=== PATIENT | female | born 1970 | race Caucasian/White ===

== ENCOUNTER 2023-03-30 14:10 | Outpatient (OUT) | payer BC, SELFPAY ==
[2023-03-31 16:10] LABS: Deamidated Gliadin Abs, IgA 4 units (0-19); Deamidated Gliadin Abs, IgG 3 units (0-19); Endomysial Antibody IgA Negative (Negative); Immunoglobulin A, Qn, Serum 135 mg/dL (87-352); t-Transglutaminase (tTG) IgA <2 U/mL (0-3); t-Transglutaminase (tTG) IgG <2 U/mL (0-5)
== END 2023-03-30 14:11 | disposition home or self-care (01) ==
PROVIDERS: PCP Family Medicine
DX: R19.7 Diarrhea, unspecified (principal)
CPT/HCPCS: 36415; 82784; 86231; 86258; 86364

== ENCOUNTER 2023-10-25 10:38 | Outpatient (OUT) | payer BC, SELFPAY ==
[2023-10-25 11:36] LABS: Free T4 1.08 ng/dL (0.76-1.46)
[2023-10-25 11:37] LABS: Basophils Absolute Auto 0.1 10^3/uL (0.0-0.1); Basophils Percent Auto 1.2 % (0.2-2.0); Eosinophils Absolute Auto 0.1 10^3/uL (0.0-0.7); Eosinophils Percent Auto 1.7 % (0.9-7.0); Hematocrit 42.6 % (36.0-48.0); Hemoglobin 13.8 g/dL (12.0-16.0); Immature Granulocytes Abs Auto 0.01 10^3/uL (0.00-0.03); Immature Granulocytes Pct Auto 0.2 % (0.0-0.5); Lymphocytes Absolute Auto 1.9 10^3/uL (1.2-3.8); Lymphocytes Percent Auto 37.1 % (20.5-60.0); Mean Corpuscular HGB Conc 32.4 g/dL (29.9-35.2); Mean Corpuscular Hemoglobin 31.7 pg (26.7-34.0); Mean Corpuscular Volume 97.7 fL (81.0-99.0); Mean Platelet Volume 10.1 fL (9.5-13.5); Monocytes Absolute Auto 0.3 10^3/uL (0.3-0.8); Monocytes Percent Auto 5.8 % (1.7-12.0); Neutrophils Absolute Auto 2.8 10^3/uL (1.4-6.5); Platelet Count 212 10^3/uL (150-450); Red Blood Count 4.36 10^6/uL (4.20-5.40); White Blood Count 5.2 10^3/uL (4.0-11.0)
[2023-10-25 11:40] LABS: Anion Gap 10.9; BUN Creatinine Ratio 28.6; Calcium 8.9 mg/dL (8.5-10.1); Chloride 104 mmol/L (98-107); Estimated GFR (African America >60 (>=60); Estimated GFR (Non-African Ame >60 (>=60); Glucose 87 mg/dL (74-106); Potassium 3.9 mmol/L (3.5-5.1); Sodium 142 mmol/L (136-145); Thyroid Stimulating Hormone 0.103 uIU/mL (0.358-3.740)
== END 2023-10-25 10:39 | disposition home or self-care (01) ==
LOC: LAB 10:40
PROVIDERS: PCP Family Medicine; Visit Provider Family Medicine
DX: E03.9 Hypothyroidism, unspecified (principal); R53.83 Other fatigue
CPT/HCPCS: 36415; 80048; 84439; 84443; 85025

== ENCOUNTER 2023-11-08 20:46 | Outpatient (REF) | payer BC, SELFPAY ==
--- OUTSIDE RECORDS SUMMARY | 2023-11-08 20:53 | XMS_ITS | CCD ---
Author Organization [facility] Care Team Providers Care Sales Management Trainee Name Role Phone Saba Jenkins Unavailable Unavailable Furness, Yan T Unavailable Unavailable London, Ba U Unavailable Unavailable Wood, Javad Unavailable Unavailable Fried, Fely Unavailable Unavailable Furness, Yan Unavailable Unavailable Sagamore, Melvin Unavailable Unavailable Furness, Yan T Primary Care Provider [phone] Pending Provider Unavailable Unavailable Unavailable Unavailable Unavailable Unavailable XIOMARA AARON Primary Care Physician Blaire Collier Unavailable Shan Kerr Unavailable Xiomara Aaron Unavailable ZURI ., DR COLEY Admitting Unavailable ZRUI ., DR COLEY Consulting Unavailable ZURI ., DR COLEY Attending Unavailable GALEN, DR XIOMARA Hunter Primary Care Unavailable GALEN, DR XIOMARA Hunter Primary Care Unavailable DR XIOMARA AARON Consulting Unavailable GALEN, DR XIOMARA Hunter Attending Unavailable GALEN, DR XIOAMRA Hunter Admitting Unavailable ASAAD, IMAD Admitting Unavailable ASAAD, IMAD Consulting Unavailable ASAAD, IMAD Attending Unavailable GALEN, DR XIOMARA Hunter Primary Care Unavailable ASAAD, IMAD Admitting Unavailable ASAAD, IMAD Attending Unavailable DR JOSE EASLEY Consulting Unavailable GALEN, DR XIOMARA Hunter Primary Care Unavailable ASAAD, IMAD Consulting Unavailable Asaad, Imad Unavailable Xiomara Aaron Primary Care Unavailable Asaad, Imad Attending Unavailable Asaad, Imad Admitting Unavailable FREYA JOHNSON Attending Unavailable FREYA JOHNSON Attending Unavailable Freya Ponce Unavailable Allergies Allergy Classification Reported Allergen(s) Allergy Type Date of Onset Reaction(s) Facility Macrolides (antibiotic) (3 sources) Azithromycin; Translations: [erythromycin] Drug Allergy 07-30-20 12 Vomiting [facility] (20 sources) Erythromycin; Translations: [Erythromycin] Drug Allergy Vomitus (substance) [facility] Work Phone: (1 source) Erythromycin Drug Allergy 07-02-20 20 [facility] (1 source) Erythromycin Drug Allergy 09-21-19 [facility] Repository (6 sources) Allergies Reconciled Propensity to adverse reactions Unknown CANDDi Other Medications Current Medications Medication Drug Class(es) Dates Sig (Normalized) Sig (Original) [id number] actuat albuterol 0.09 mg/actuat metered dose inhaler (7 sources) beta2-Adrenergic Agonist take 2 puff(s) by mouth every four hours as needed for cough Albuterol Sulfate HFA 108 (90 Base) MCG/ACT INHALE 2 PUFFS BY MOUTH AND INTO THE LUNGS EVERY 4 HOURS NEEDED FOR COUGH, SHORTNESS OF BREATH for 30 Active take 2 puff(s) by mo uth every four hours as needed for cough Albuterol Sulfate HFA 108 (90 Base) MCG/ACT INHALE 2 PUFFS BY MOUTH AND INTO THE LUNGS EVERY 4 HOURS NEEDED FOR COUGH, SHORTNESS OF BREATH for 30 Active take 2 puff(s) by mo uth every four hours as needed for cough Albuterol Sulfate HFA 108 (90 Base) MCG/ACT INHALE 2 PUFFS BY MOUTH AND INTO THE LUNGS EVERY 4 HOURS NEEDED FOR COUGH, SHORTNESS OF BREATH for 30 Active Allergy Relief (14 sources) Allergy Relief P RN Active Allergy Relief A ctive amoxicillin 875 mg / clavulanate 125 mg oral tablet (2 sources) Penicillin-class Antibacterial Start: 06-30-2023 take 1 tablet by mouth every twelve hours Amoxicillin-Pot Clavulanate 875-125 MG 1 tablet Orally every 12 hrs for 10 days Jun, Active azithromycin 250 mg oral tablet (1 source) Macrolide Antimicrobial Start: 08-07-2023 Azithromycin 250 MG as directed Orally 2 tabs po today, then 1 tab daily x 4 more days for 5 Jul, Active biotin 10 mg oral tablet (7 sources) take 1 tablet by mouth every twenty-four hours Biotin 20912 MCG 1 tablet Orally Once a day Active take 1 tablet by chau th every twenty-four hours Biotin 10453 MCG 1 tablet Orally Once a day Active take 1 tablet by mouth once emy y Biotin 53124 MCG 1 tablet Orally Once a day Active dicyclomine hydrochloride 20 mg oral tablet (5 sources) Anticholinergic Start: 01-11-2021 take 1 tablet by mouth every twelve hours Dicyclomine HCl 20 MG 1 tablet Orally bid for 30 day(s) December, Active Start: 05-06-2020 take 1 tablet by chau th four times daily as needed Dicyclomine HCl - 20 MG Oral Tablet TAKE 1 TABLET 4 times daily PRN abdominal cramping Quantity: 30 Refills: 1 Ordered: 06-May-2020 Yan Winslow MD Start : 06-May-2020 Active doxycycline hyclate 100 mg oral tablet (2 sources) Tetracycline-class Drug Start: 07-24-2023 take 1 tablet by mouth every twelve hours Doxycycline Monohydrate 100 MG 1 tablet Orally Twice a day for 10 days Jul, Active Start: 07-24-2023 take 1 tablet by chau every twelve hours Doxycycline Monohydrate 100 MG 1 tablet Orally Twice a day for 10 days Jul, Active estradiol 0.01 mg vaginal insert (20 sources) Estrogen Start: 12-08-2021 Yuvafem 10 mcg vaginal tablet mcg tab(s), Vaginal, Once a day (at bedtime), Refills(s) 0 Start Date: 12/08/21 Status: Ordered Start: 01-25-2021 take 1 tablet by chau once daily Estradiol 2 MG Oral Tablet TAKE 1 TABLET DAILY. Quantity: 30 Refills: 1 Ordered: 25-Jan-2021 Chance Rao MD Start : 25-Jan-2021 Active Start: 09-08-2020 Estradiol 10 M CG Vaginal Tablet 1 PV QHS x 14 days then 1 PV twice weekly Quantity: 20 Refills: 5 Ordered: 08-Sep-2020 Nelson MYRES, CASSANDRA-SETH, Fely Start : 08-Sep-2020 Active Vagifem 10 MCG 1 tablet Vaginal Two times a Week Active Vagifem 10 MCG 1 tablet Vaginal Two times a Week Active Yuvafem Active Estradiol Active estradiol 0.025 mg/24 hours twice weekly Transderm ER Film (1 source) Start: 12-08-2021 estradiol 0.02 5 mg/24 hours twice weekly Transderm ER Film patch(es), Topical, Refill(s) 0 Start Date: 12/08/21 Status: Ordered Fish Oils (7 sources) take 1 capsule by mouth once daily Fish Oil 1000 MG 1 capsule Orally Once a day Active fluconazole 150 mg oral tablet (3 sources) Azole Antifungal Start: 07-24-2023 take 1 tablet by mouth every twenty-four hours Fluconazole 150 MG 1 tablet Orally daily for 1 days take first dose at onset of symptoms and then take second dose if no better in 3 days Jul, Active Start: 07-05-2023 take 1 tablet by chau th every twenty-four hours Fluconazole 150 MG 1 tablet Orally daily for 1 days take first dose and then may repeat in 72 hours if continues to have symptoms. Jun, Active fluticasone propionate 0.05 mg/actuat metered dose nasal spray (4 sources) Corticosteroid Start: 06-30-2023 take 1 spray(s) nasal route once daily Fluticasone Propionate 50 MCG/ACT 1 spray in each nostril Nasally Once a day for 30 days Jun, Active Start: 06-30-2023 take 1 spray(s) nasa l route once daily Fluticasone Propionate 50 MCG/ACT 1 spray in each nostril Nasally Once a day for 30 days Jun, Active Thyroxine (20 sources) l-Thyroxine Start: 12-08-2021 levothyroxine Daily, Refills(s) 0 Start Date: 12/08/21 Status: Ordered Levothyroxine So dium 88 MCG TAKE 1 TABLET BY MOUTH EVERY DAY IN THE MORNING ON EMPTY STOMACH FOR 90 DAYS for 90 Active Levothyroxine So dium 88 MCG TAKE 1 TABLET BY MOUTH EVERY DAY IN THE MORNING ON EMPTY STOMACH FOR 90 DAYS for 90 Active take 1 tablet by chau th once daily in the morning Levothyroxine Sodium 100 MCG 1 tablet in the morning on an empty stomach Orally Once a day Active take 1 tablet by mouth once emy y Levothyroxine Sodium 100 MCG Oral Tablet TAKE 1 TABLET DAILY. Quantity: 90 Refills: 3 Ordered: 03-Feb-2020 Yan Winslow MD Active Comment on above: Take 100 mcg by mout h daily before breakfast. Multi-Day Plus Minerals (2 sources) Start: 12-09-19 Multi-Day Plus Minerals Oral, Daily, Refill(s) 0 Start Date: 12/08/21 Status: Ordered Multivitamin preparation (7 sources) take 1 tablet by mouth once daily Multivitamin - 1 tablet Orally Once a day Active nitrofurantoin, macrocrystals 25 mg / nitrofurantoin, monohydrate 75 mg oral capsule (3 sources) Nitrofuran Antibacterial Start: 04-26-20 Macrobid 100 mg Cap See Instructions, 1 cap orally after intercourse, # 30 cap(s), Refills(s) 3, Pharmacy: [facility]/pharmacy #[id number], 170, cm, 04/26/23 13:36:00 EDT, Height/Length Dosing, 69.1, kg, 04/26/23 13:36:00 EDT, Weight Dosing Start Date: 04/26/23 Status: Ordered Start: 10-17-2021 take 1 capsule by [facility] every twelve hours Macrobid 100 MG 1 capsule with food Orally every 12 hrs for 5 days Sep, Active omeprazole 20 mg delayed release oral capsule (8 sources) Proton Pump Inhibitor Start: 12-08-2021 take 1 mg by mouth once daily omeprazole 20 mg Cap-DR mg cap(s), Oral, Daily, Refills(s) 0 Start Date: 12/08/21 Status: Ordered Omeprazole Activ e omeprazole 20 mg Cap-DR (1 source) Start: 12-08-2021 take 1 mg by mouth once daily omeprazole 20 mg Cap-DR mg cap(s), Oral, Daily, Refills(s) 0 Start Date: 12/08/21 Status: Ordered 24 hr oxybutynin chloride 5 mg extended release oral tablet (20 sources) Cholinergic Muscarinic Antagonist Start: 04-26-2023 take 1 tablet by mouth once daily oxybutynin 5 mg ER Tab 5 mg = 1 tab(s), Oral, Daily, # 90 tab(s), Refills(s) 3, Pharmacy: [facility]/pharmacy #[id number], 170, cm, 04/26/23 13:36:00 EDT, Height/Length Dosing, 69.1, kg, 04/26/23 13:36:00 EDT, Weight Dosing Start Date: 04/26/23 Status: Ordered Start: 12-08-2021 take 1 tablet by chau th once daily oxybutynin 5 mg ER Tab 5 mg = 1 tab(s), Oral, Daily, # 90 tab(s), Refills(s) 3, Pharmacy: [facility]/pharmacy #[id number], 170, cm, 12/08/21 9:43:00 EDT, Height/Length Dosing, 69.1, kg, 12/08/21 9:43:00 EDT, Weight Dosing Start Date: 12/08/21 Status: Ordered Start: 04-23-2020 take 1 tablet by chau th once daily Oxybutynin Chloride ER 5 MG Oral Tablet Extended Release 24 Hour Take 1 tablet daily Quantity: 90 Refills: 3 Ordered: 23-Apr-2020 Yan Winslow MD Start : 23-Apr-2020 Active take 1 tablet by chau every twenty-four hours oxyBUTYnin Chloride 5 MG 1 tablet Orally Once a day Active pantoprazole 40 mg delayed release oral tablet (18 sources) Proton Pump Inhibitor take 1 tablet by mouth once daily Pantoprazole Sodium 40 MG TAKE 1 TABLET BY MOUTH EVERY DAY for 90 Active phenazopyridine hydrochloride 200 mg oral tablet (2 sources) Start: 2 take 1 tablet by mouth every eight hours Pyridium 200 MG 1 tablet after meals Orally Three times a day for 2 day(s) Sep, Active sucralfate 1000 mg oral tablet (6 sources) Aluminum Complex Start: 2 sucralfate 1 g Tab gm tab(s), Oral, QIDACHS, Refills(s) 0 Start Date: 12/08/21 Status: Ordered Start: 11-19-2021 sucralfate 1 g Tab gm tab(s), Oral, QIDACHS, Refills(s) 0 Start Date: 12/08/21 Status: Ordered Start: 11-19-2021 take 1 tablet by chau three times daily Sucralfate 1 GM 1 TABLET Orally THREE TIMES A DAY for 30 day(s) Nov, Active Vitamin B 12 (20 sources) Vitamin B12 Start: 12-08-2021 Vitamin B12 Re fills(s) 0 Start Date: 12/08/21 Status: Ordered Vitamin B 12 Act kathryn take 1 tablet by mouth once emy y Vitamin B-12 ER 1000 MCG Oral Tablet Extended Release TAKE 1 TABLET DAILY DIRECTED. Quantity: 0 Refills: 0 Ordered: 07-Nov-2018 DO Active Vitamin D3 (2 sources) Vitamin D3 Activ e Yuvafem 10 mcg vaginal table t (1 source) Start: 12-08-2021 Yuvafem 10 mcg vaginal tablet mcg tab(s), Vaginal, Once a day (at bedtime), Refills(s) 0 Start Date: 12/08/21 Status: Ordered Completed/Discontinued Medications Medication Drug Class(es) Dates Sig (Normalized) Sig (Original) amitriptyline hydrochloride 10 mg oral tablet (1 source) Tricyclic Antidepressant Start: 12-04-2013 End: 04-12-2016 take 1 tablet by mouth once daily at bedtime amitriptyline 10 mg tablet Take 1 tablet by mouth daily at bedtime. 30 tablet 9 12/04/2013 04/12/2016 Discontinued (Course of therapy completed) Comment on above: Take 1 tablet by chau th daily at bedtime. amylase 562143 unt / lipase 30266 unt / protease [id number] unt delayed release oral capsule (8 sources) Start: 11-01-2021 take 1 capsule by mouth every eight hours Zenpep [id number] UNIT 1 CAPSULE Orally THREE TIMES A DAY for 30 days Oct, Not-Taking CALCIUM CARBONATE/VITAMIN D2 (CALCIUM + VITAMIN D ORAL) (1 source) End: 04-12-2016 take 600 mg by mouth once CALCIUM CARBONATE/VITAMIN D2 (CALCIUM + VITAMIN D ORAL) Take 600 mg by mouth. 0 04/12/2016 Discontinued (Discontinued by Patient) Comment on above: Take 600 mg by mouth . cholecalciferol 1.25 mg oral capsule (1 source) Vitamin D Start: 12-10-2013 cholecalciferol, Vitamin D3, 50,000 unit cap capsule 1 cap per week x 10 weeks. 10 capsule 0 12/10/2013 Active Comment on above: 1 cap per week x 10 weeks. estrogens, conjugated (alf) 1.25 mg oral tablet (3 sources) Estrogen Start: 05-19-2020 take 1 tablet by mouth once daily Premarin 1.25 MG Oral Tablet TAKE 1 TABLET BY MOUTH EVERY DAY Quantity: 90 Refills: 3 Ordered: 13-Aug-2020 Sagamore DO, Melvin Start : 19-May-2020 Active ESTROGENS, CONJU GATED (PREMARIN ORAL) Indications: Occipital neuralgia , Chronic daily headache , Chronic migraine , Cervicalgia , Cervical radicular pain , Medication overuse headache , Disequilibrium , Neck pain , Head trauma , Neck injury Take by mouth once daily. 0 Active Comment on above: Take by mouth once d aily. famotidine 20 mg oral tablet (3 sources) Histamine-2 Receptor Antagonist Start: take 1 tablet by mouth twice daily Famotidine 20 MG Oral Tablet Take 1 tablet twice daily Quantity: 60 Refills: 1 Ordered: 06-May-2020 Yan Winslow MD Start : 06-May-2020 Active 12 hr hyoscyamine sulfate 0.375 mg extended release oral tablet (7 sources) Start: 022 take 1 tablet by mouth every twelve hours Levbid 0.375 MG 1 tablet Orally every 12 hrs for 30 day(s) Nov, Not-Taking multivitamin tablet (1 source) End: 016 take 1 tablet by mouth once daily multivitamin tablet Indications: Occipital neuralgia , Chronic daily headache , Chronic migraine , Cervicalgia , Cervical radicular pain , Medication overuse headache , Disequilibrium , Neck pain , Head trauma , Neck injury Take 1 tablet by mouth once daily. 0 04/12/2016 Discontinued (Discontinued by Patient) Comment on above: Take 1 tablet by chau once daily. nortriptyline 25 mg oral capsule (5 sources) Tricyclic Antidepressant Start: 020 take 1 capsule by mouth at bedtime Nortriptyline HCl - 25 MG Oral Capsule TAKE 1 CAPSULE AT BEDTIME. Quantity: 90 Refills: 3 Ordered: 25-Oct-2019 Yan Winslow MD Start : 25-Oct-2019 Active Nortriptyline HC l PRN Active olopatadine 1 mg/ml ophthalmic solution (19 sources) Histamine-1 Receptor Inhibitor Start: 12-08-2021 olopatadine ophthalmic 0.1% solution drop(s), BID, Refill(s) 0 Start Date: 12/08/21 Status: Ordered Start: 12-08-2021 olopatadine op hthalmic 0.1% solution drop(s), BID, Refill(s) 0 Start Date: 12/08/21 Status: Ordered Start: 07-31-2019 Olopatadine HC l - 0.1 % Ophthalmic Solution Quantity: 5 Refills: 0 Ordered: 08-Oct-2019 DO Start : 31-Jul-2019 Active Start: 07-31-2019 Olopatadine HC l - 0.1 % Ophthalmic Solution Quantity: 5 Refills: 0 Start : 31-Jul-2019 Active Olopatadine HCl Active polyethylene glycol 3350 527666 mg / potassium chloride 2970 mg / sodium bicarbonate 6740 mg / sodium chloride 5860 mg / sodium sulfate 44135 mg powder for oral solution (3 sources) Osmotic Laxative Start: 01-05-2023 PEG-3350/Elec trolytes 236 GM as directed Orally once daily for 1 days December, Not-Taking rizatriptan 10 mg oral tablet (1 source) Serotonin-1b and Serotonin-1d Receptor Agonist Start: 12-04-2013 End: 04-12-2016 rizatriptan 10 mg tablet 1 tab at earliest sign of migraine. May repeat once in 2 hours if needed. 9 tablet 11 12/04/2013 04/12/2016 Discontinued (Course of therapy completed) Comment on above: 1 tab at earliest si gn of migraine. May repeat once in 2 hours if needed. Sertraline (1 source) Serotonin Reuptake Inhibitor SERTRALINE HCL (ZOLO FT ORAL) Indications: Occipital neuralgia , Chronic daily headache , Chronic migraine , Cervicalgia , Cervical radicular pain , Medication overuse headache , Disequilibrium , Neck pain , Head trauma , Neck injury Take by mouth once daily. 0 Active Comment on above: Take by mouth once d aily. Problems Active Problems Problem Classification Problem Date Documented Da te Episodic/Chronic Abdominal pain (20 sources) Abdominal pain; Translations: [Generalized abdominal pain] Onset: 3 Episodic Acute bronchitis (6 sources) Acute bronchitis; Translations: [Acute bronchitis due to other specified organisms] Episodic Calculus of urinary tract (9 sources) Ureteric stone; Translations: [Calculus of ureter] Episodic Cancer of uterus (15 sources) History of malignant neoplasm of uterine body; Translations: [Personal history of malignant neoplasm of other parts of uterus] Episodic Conditions associated with dizziness or vertigo (3 sources) Dizziness; Translations: [Dizziness and giddiness] Episodic Esophageal disorders (14 sources) Gastroesophageal reflux disease; Translations: [Gastroesophageal reflux disease without esophagitis] Onset: 2 Resolved: 2 12-03-2021 Chronic Genitourinary symptoms and ill-defined conditions (4 sources) Urge incontinence; Translations: [Urge incontinence of urine] Onset: 2 Chronic Genitourinary symptoms and ill-defined conditions (7 sources) Dysuria; Translations: [Genitourinary symptoms] Onset: 2 Resolved: 2 Episodic Headache; including migraine (1 source) Chronic intractable migraine without aura; Translations: [Chronic migraine without aura, intractable, without status migrainosus] Onset: 3 08-01-2013 Chronic Immunizations and screening for infectious disease (13 sources) Encounter for screening for human papillomavirus (HPV); Translations: [Human papilloma virus screening] Onset: 3 Episodic Inflammatory diseases of female pelvic organs (1 source) Acute vaginitis Episodic Malaise and fatigue (9 sources) Fatigue; Translations: [Other malaise and fatigue] Episodic Menopausal disorders (9 sources) Menopausal symptom; Translations: [Menopausal syndrome] Chronic Nausea and vomiting (3 sources) Nausea; Translations: [Nausea alone] Episodic Nutritional deficiencies (9 sources) Vitamin D deficiency; Translations: [Unspecified vitamin D deficiency] Chronic Other circulatory disease (7 sources) Acroparesthesia; Translations: [Distal paresthesia] Chronic Other diseases of bladder and urethra (11 sources) Overactive bladder; Translations: [Overactive bladder] 12-03-2021 Chronic Other diseases of bladder and urethra (2 sources) Detrusor overactivity; Translations: [Overactive bladder] Onset: 2 Chronic Other ear and sense organ disorders (3 sources) Impacted cerumen; Translations: [Impacted cerumen] Episodic Other ear and sense organ disorders (1 source) Impacted cerumen, bilateral Episodic Other female genital disorders (15 sources) H/O gynecological disorder; Translations: [Personal history of other genital system and obstetric disorders] Episodic Other gastrointestinal disorders (20 sources) Irritable bowel syndrome; Translations: [Mixed irritable bowel syndrome] 12-03-2021 Chronic Other gastrointestinal disorders (1 source) Mixed irritable bowel syndrome Onset: 2 Resolved: 2 Chronic Other gastrointestinal disorders (1 source) Celiac disease; Translations: [Celiac disease] Chronic Other gastrointestinal disorders (5 sources) Celiac disease; Translations: [Gluten intolerance] Chronic Other gastrointestinal disorders (15 sources) Personal history of other diseases of the digestive system; Translations: [History of gastroesophageal reflux disease] Episodic Other gastrointestinal disorders (15 sources) Diarrhea; Translations: [Diarrhea] Episodic Other gastrointestinal disorders (9 sources) Abdominal bloating; Translations: [Flatulence, eructation, and gas pain] Episodic Other gastrointestinal disorders (6 sources) Swollen abdomen; Translations: [Abdominal distension (gaseous)] Episodic Other gastrointestinal disorders (13 sources) Incontinence of feces; Translations: [Full incontinence of feces] Onset: 3 Episodic Other gastrointestinal disorders (2 sources) Full incontinence of feces Onset: 2 Resolved: 2 Episodic Other gastrointestinal disorders (14 sources) Flatulence, eructation and gas pain; Translations: [Abdominal distension (gaseous)] Episodic Other gastrointestinal disorders (5 sources) Diarrhea, unspecified; Translations: [DIARRHEA UNSPECIFIED] Onset: 2 Episodic Other gastrointestinal disorders (7 sources) Altered bowel function; Translations: [Change in bowel habit] Episodic Other gastrointestinal disorders (6 sources) Constipation alternates with diarrhea; Translations: [Other specified symptoms and signs involving the digestive system and abdomen] Episodic Other gastrointestinal disorders (1 source) Change in bowel habit Episodic Other gastrointestinal disorders (1 source) Abdominal distension (gaseous) Episodic Other gastrointestinal disorders (1 source) Other specified symptoms and signs involving the digestive system and abdomen; Translations: [Alternating constipation and diarrhea] Episodic Other infections; including parasitic (15 sources) H/O: infectious disease; Translations: [Personal history of other infectious and parasitic diseases] Episodic Other inflammatory condition of skin (3 sources) Sunburn of second degree; Translations: [Sunburn of second degree] Episodic Other lower respiratory disease (3 sources) Cough; Translations: [Cough] Episodic Other nervous system disorders (9 sources) Idiopathic peripheral neuropathy; Translations: [Unspecified hereditary and idiopathic peripheral neuropathy] Chronic Other nervous system disorders (2 sources) Disorder of nervous system; Translations: [Demyelinating disease of central nervous system, unspecified] Chronic Other nervous system disorders (7 sources) Disorder of nervous system; Translations: [Demyelinating disease] Episodic Other nervous system disorders (2 sources) Acroparesthesia; Translations: [Disturbance of skin sensation] Episodic Other non-traumatic joint disorders (1 source) Pain in left knee Episodic Other nutritional; endocrine; and metabolic disorders (15 sources) H/O: hypothyroidism; Translations: [Personal history of other endocrine, metabolic, and immunity disorders] Episodic Other upper respiratory disease (3 sources) Allergic rhinitis; Translations: [Allergic rhinitis due to other allergen] Chronic Other upper respiratory infections (6 sources) Chronic sinusitis; Translations: [Chronic sinusitis, unspecified] Chronic Other upper respiratory infections (2 sources) Acute frontal sinusitis, unspecified; Translations: [Acute recurrent maxillary sinusitis] Episodic Residual codes; unclassified (3 sources) Past history of procedure; Translations: [Other specified personal history presenting hazards to health] Episodic Comment on above: 01/01/2019; Residual codes; unclassified (7 sources) Family history of cancer of colon; Translations: [Family history of malignant neoplasm of digestive organs] Episodic Residual codes; unclassified (6 sources) Tobacco user; Translations: [Tobacco use] Episodic Residual codes; unclassified (6 sources) Body mass index 20-24 - normal; Translations: [Body mass index (BMI) 23.0-23.9, adult] Episodic Sexually transmitted infections (not HIV or hepatitis) (6 sources) Human papilloma virus deoxyribonucleic acid test positive, high risk on vaginal specimen; Translations: [Cervical high risk human papillomavirus (HPV) DNA test positive] Episodic Thyroid disorders (11 sources) Hypothyroidism; Translations: [Unspecified acquired hypothyroidism] 12-03-2021 Chronic Unclassified (6 sources) Acute candidiasis of vulva and vagina; Translations: [Acute candidiasis of vulva and vagina] Urinary tract infections (11 sources) Urinary tract infectious disease; Translations: [Urinary tract infection, site not specified] Onset: 2 Resolved: 2 Episodic Viral infection (2 sources) Human papilloma virus infection; Translations: [Human papillomavirus in conditions classified elsewhere and of unspecified site] Episodic Viral infection (6 sources) Disease caused by 2019-nCoV; Translations: [COVID-19] Past or Other Problems Problem Classification Problem Date Documented Date Episodic/Chronic Headache; including migraine (1 source) Chronic daily headache; Translations: [Chronic daily headache] Onset: 08-01-2013 08-01-2013 Episodic Other screening for suspected conditions (not mental disorders or infectious disease) (14 sources) Cancer cervix - screening done; Translations: [Patient encounter status] Onset: 10-27-2021 Episodic Pancreatic disorders (not diabetes) (1 source) Exocrine pancreatic insufficiency Onset: 11-01-2021 Resolved: 11-01-2021 Episodic Residual codes; unclassified (6 sources) Postmenopausal state; Translations: [Asymptomatic menopausal state] Onset: 10-27-2021 Episodic Spondylosis; intervertebral disc disorders; other back problems (1 source) Cervico-occipital neuralgia; Translations: [Occipital neuralgia] Onset: 12-04-2013 12-04-2013 Episodic Unclassified (2 sources) Patient encounter status; Translations: [Encounter for screening mammogram for breast cancer] Unclassified (3 sources) Finding of menstrual bleeding; Translations: [Menstruation] Comment on above: Onset age 13 years; NEGATED: Highlighted row has not occurred!Residual codes; unclassified (20 sources) Disease Episodic Results Test Name Value Interpretation Reference Range Facility Screenson 04-27-2023 Screens [id number] Normal [facility] Ambulatory Visit Summaryon 0 04-26-2023 Ambulatory Visit Summary PATTY WRIGHT :1970 Visit Date:04/26/2023 Ambulatory Visit Instructions Your Diagnosis Frequent UTI OAB (overactive bladder) Urge incontinence Fecal incontinence Your Care Team Attending Physician - FREYA JOHNSON PA-C Primary Care Physician - XIOMARA AARON MD This Is Your Medications List nitrofurantoin (Macrobid 100 mg Cap) oxybutynin (oxybutynin 5 mg ER Tab) Contact prescribing physician if questions or concerns cyanocobalamin (Vitamin B12) estradiol topical (Yuvafem 10 mcg vaginal tablet) levothyroxine multivitamin with minerals (Multi-Day Plus Minerals) olopatadine ophthalmic (olopatadine ophthalmic 0.1% solution) omeprazole (omeprazole 20 mg Cap-DR) sucralfate (sucralfate 1 g Tab) Procedures Performed D&C - Dilatation and curettage, History of hysterectomy, History of tonsillectomy, Procedure on foot. Discharge Vitals Heart Rate (Peripheral) 76 Respiratory Rate 16 Blood Pressure 112/76 Height 170 cm Height 67 in Weight 69.1 kg Weight 152.02 lb BMI 23.91 What to do next Scheduled Follow-Up Appointments Monday 10:00 AM EDT With: FERYA JOHNSON PA-C Where: [facility] Patient Educationon 04-26-20 Patient Education Obstetrics and Gynec ology Urinary Tract Infection, Adult A urinary tract infection (UTI) is an infection of any part of the urinary tract. The urinary tract includes: ? The kidneys. ? The ureters. ? The bladder. ? The urethra. These organs make, store, and get rid of pee (urine) in the body. What are the causes? This infection is caused by germs (bacteria) in your genital area. These germs grow and cause swelling (inflammation) of your urinary tract. What increases the risk? The following factors may make you more likely to develop this condition: ? Using a small, thin tube (catheter) to drain pee. ? Not being able to control when you pee or poop (incontinence). ? Being female. If you are female, these things can increase the risk: ? Using these methods to prevent : ? A medicine that kills sperm (spermicide). ? A device that blocks sperm (diaphragm). ? Having low levels of a female hormone (estrogen). ? Being . You are more likely to develop this condition if: ? You have genes that add to your risk. ? You are sexually active. ? You take antibiotic medicines. ? You have trouble peeing because of: ? A prostate that is bigger than normal, if you are male. ? A blockage in the part of your body that drains pee from the bladder. ? A kidney stone. ? A nerve condition that affects your bladder. ? Not getting enough to drink. ? Not peeing often enough. ? You have other conditions, such as: ? Diabetes. ? A weak disease-fighting system (immune system). ? Sickle cell disease. ? Gout. ? Injury of the spine. What are the signs or symptoms? Symptoms of this condition include: ? Needing to pee right away. ? Peeing small amounts often. ? Pain or burning when peeing. ? Blood in the pee. ? Pee that smells bad or not like normal. ? Trouble peeing. ? Pee that is cloudy. ? Fluid coming from the vagina, if you are female. ? Pain in the belly or lower back. Other symptoms include: ? Vomiting. ? Not feeling hungry. ? Feeling mixed up (confused). This may be the first symptom in older adults. ? Being tired and grouchy (irritable). ? A fever. ? Watery poop (diarrhea). How is this treated? ? Taking antibiotic medicine. ? Taking other medicines. ? Drinking enough water. In some cases, you may need to see a specialist. Follow these instructions at home: Medicines ? Take xgjr-rpq-rhmegdr and prescription medicines only as told by your doctor. ? If you were prescribed an antibiotic medicine, take it as told by your doctor. Do not stop taking it even if you start to feel better. General instructions ? Make sure you: ? Pee until your bladder is empty. ? Do not hold pee for a long time. ? Empty your bladder after sex. ? Wipe from front to back after peeing or pooping if you are a female. Use each tissue one time when you wipe. ? Drink enough fluid to keep your pee pale yellow. ? Keep all follow-up visits. Contact a doctor if: ? You do not get better after 1?2 days. ? Your symptoms go away and then come back. Get help right away if: ? You have very bad back pain. ? You have very bad pain in your lower belly. ? You have a fever. ? You have chills. ? You feeling like you will vomit or you vomit. Summary ? A urinary tract infection (UTI) is an infection of any part of the urinary tract. ? This condition is caused by germs in your genital area. ? There are many risk factors for a UTI. ? Treatment includes antibiotic medicines. ? Drink enough fluid to keep your pee pale yellow. This information is not intended to replace advice given to you by your health care provider. Make sure you discuss any questions you have with your health care provider. Document Revised: 03/19/2021 Document Reviewed: 03/19/2021 [employer] Patient Education ? 2022 [employer] Raissa [facility] Urology Office/Clinic Noteon 04-26-2023 Urology Office/Clinic Note Chief Complaint 1yr HPI Staff 1yr DX: Frequent UTI, OAB & Urge Incontinence *Oxybutynin ER 5mg QD therapy. Pt's [employer] put her on Macrobid and she takes one post-coital. Last CMP (per [facility]) 12/22/21 *BUN 10.0 & Crea 0.50 Pt unable to provide urine specimen. Denies infection since last encounter. Denies leaking. Denies frequency. Occasionally may wake up 1x/night. Denies current pain/burning and visible blood in urine. Does have occasional bowel leakage. Usually while she is at work. No other concerns at this time. History of Present Illness staff HPI reviewed and agree. Review of Systems PHQ Score Initial Depression Screen Score: 0 no fever, chills, malaise, myalgia. no rash/lesions. no chest pain, palpitations, or SOB. no abdominal pain, nausea, vomiting. no unilateral calf swelling, redness, pain Physical Exam Vitals & Measurements HR: 76(Peripheral) RR: 16 BP: 112/76 HT: 67 in HT: 170 cm WT: 69.1 kg WT: 152.02 lb BMI: 23.91 General: nontoxic, NAD Mouth: moist mucosa Lungs: normal respiratory effort Cardio: regular rate, good distal perfusion Abdomen: nondistended, no suprapubic distention or tenderness, no CVA tenderness Neurologic: Grossly normal Skin: No rashes or suspicious lesions Assessment/Plan 1. Frequent UTI (N39.0: Urinary tract infection, site not specified) Pt's [employer]ER put her on Macrobid and she takes one post-coital. Pt denies any UTIs since last visit. Pt states that she takes it about 1x a week. Risks/benefits of continued use discussed at length. Pt prefers to continue since it's working. Refills sent today to pharm on file. Ordered: E&M of Est. Patient Moderate 30-39 Min 82945 2. OAB (overactive bladder) (N32.81: Overactive bladder) Oxybutynin ER 5mg QD (switched from IR previously). No bothersome SE's. Denies frequency. Occasionally may wake up 1x/night. Discussed increasing dose, does not feel this is necessary. pleased w current sx. Refills sent today to pharm on file. Ordered: E&M of Est. Patient Moderate 30-39 Min 40632 3. Urge incontinence (N39.41: Urge incontinence) Pt states she dribbles at time but it has improved significantly since her last office visit. BBS 6. see #2. Ordered: E&M of Est. Patient Moderate 30-39 Min 58897 4. Fecal incontinence (R15.9: Full incontinence of feces) Does have occasional bowel leakage. Usually while she is at work. Very small amount/liquid. Pt states that she has a BM about every other day, formed, and has to push a little bit sometimes. Advised pt that if she is more constipated/there is a stool ball blocking, this could cause the leakage. Advised pt to have a full bowel clean out. Pt had a colonoscopy last month, so she just did this. Advised pt to get enough fluids, increase fiber, and start Miralax QD for at least 2-3 mos. Should see an improvement. If not, would recommend GI. Ordered: E&M of Est. Patient Moderate 30-39 Min 54603 Orders: nitrofurantoin, See Instructions, 1 cap orally after intercourse, # 30 cap(s), Refills(s) 3, Pharmacy: [facility]/pharmacy #[id number], 170, cm, 04/26/23 13:36:00 EDT, Height/Length Dosing, 69.1, kg, 04/26/23 13:36:00 EDT, Weight Dosing oxybutynin, 5 mg = 1 tab(s), Oral, Daily, # 90 tab(s), Refills(s) 3, Pharmacy: [facility]/pharmacy #[id number], 170, cm, 04/26/23 13:36:00 EDT, Height/Length Dosing, 69.1, kg, 04/26/23 13:36:00 EDT, Weight Dosing Follow up in 1 yr. All questions/concerns were discussed. Pt to call the office if she encounters any issues prior. Pt acknowledges understanding. Follow-up With When Contact Information FREYA JOHNSON PA-C, URL In 1 year [address] [place] [address] Additional Instructions: Patient Education Urinary Tract Infection, Adult, [id number] IQiana, personally scribed for Freya Johnson PA-C on 04/26/2023 13:55:30. . Documentation recorded by the [email or web address] Garibay accurately reflects the services(s) I performed and decisions made by me. Authenticated by Freya Johnson PA-C on 04/26/2023 14:00:51. Problem List/Past Medical History Ongoing Frequent UTI GERD (gastroesophageal reflux disease) Hypothyroidism IBS (irritable bowel syndrome) OAB (overactive bladder) Urge incontinence Historical No qualifying data Procedure/Surgical History D&C - Dilatation and curettage, History of hysterectomy, History of tonsillectomy, Procedure on foot. Medications levothyroxine, Daily Macrobid 100 mg Cap, See Instructions, 1 refills Multi-Day Plus Minerals, Oral, Daily olopatadine ophthalmic 0.1% solution, BID omeprazole 20 mg Cap-DR, Oral, Daily oxybutynin 5 mg ER Tab, 5 mg= 1 tab(s), Oral, Daily, 11 refills sucralfate 1 g Tab, Oral, QIDACHS Vitamin B12 Yuvafem 10 mcg vaginal tablet, Vaginal, Once a day (at bedtime) Allergies erythromycin (Vomit) Social History Tobacco Never (less than 100 in (more content not included)... Normal [facility] Comment on above: Result Comment: Elec tronically Signed By: FREYA JOHNSON PA-C.br\Date and Time Signed: 04/26/23 14:00 EDT\.br\Electronically Co-Signed By: Qiana Garibay.br\Date and Time Co-Signed: 04/26/23 13:55 EDT Adrian 03-16-2023 L -- Specimen: [id number] Received: 03/16/23 Status: KYLE Sultanahardik Num: [id number] Spec Type: Surgical Subm Dr: Meseret Cool MD Tissues: A Duodenum - Biopsy (DUODENAL BX) B GASTRIC FOR HP (GASTRIC HP) C Gastric Biopsy (GASTRIC POLYP) D Colon Biopsy (RANDOM BX) Procedures: HE/8, Gross/Micro L4/4, H PYLORI -- Age/ Patient Sex Location Account Attending Physician -- Patty Wright 53/F [id number] Meseret Cool MD -- SPEC NUM: [id number] RECD: 03/16/23 STATUS: KYLE KALLIE NUM: [id number] GILMAR: 03/16/23- [facility] DR: Meseret Cool MD ENTERED: 03/16/[address] [facility] DR: SPEC TYPE: Surgical DEPT: S ORDERED: HE/8, Gross/Micro L4/4, H PYLORI ORDERED: HE/8, Gross/Micro L4/4, H PYLORI Pathological Diagnosis A. Duodenum, biopsy: - Duodenal mucosa with intraepithelial lymphocytosis and preserved villous architecture. Note: This occurs in celiac disease but has a broad differential diagnosis including H. pylori gastritis, drugs (e.g., olmesartan, possibly NSAIDs), non-gluten food allergies, immune-mediated diseases, Crohn?s disease and morbid obesity. No specific cause is evident in many cases. Clinical correlation is advised. B. Stomach, biopsy: - Gastric antral gland mucosa with mild chronic nonspecific gastritis - Negative for intestinal metaplasia or dysplasia - Negative for H. pylori (immunohistochemical stain) C. Stomach, polyp, biopsy: - Fragments of fundic gland polyp(s) - Negative for intestinal metaplasia or dysplasia - Negative for H. pylori (immunohistochemical stain) -- Specimen: [id number] Received: 03/16/23 Status: KYLE Demarco Num: [id number] Spec Type: Surgical Subm Dr: Meseret Cool MD Tissues: A Duodenum - Biopsy (DUODENAL BX) B GASTRIC FOR HP (GASTRIC HP) C Gastric Biopsy (GASTRIC POLYP) D Colon Biopsy (RANDOM BX) Procedures: TOM/Chris, Gross/Micro L4/4, H PYLORI -- Patient: Patty Wright [id number] (Continued) -- Specimen: [id number] Received: 03/16/23 (Continued) Pathological Diagnosis (Continued) Signed (signature on file) Glen Selby MD 03/21/23 1152 -- Specimen: [id number] Received: 03/16/23 Status: KYLE Kallie Num: [id number] Spec Type: Surgical Subm Dr: Meseret Cool MD Tissues: A Duodenum - Biopsy (DUODENAL BX) B GASTRIC FOR HP (GASTRIC HP) C Gastric Biopsy (GASTRIC POLYP) D Colon Biopsy (RANDOM BX) Procedures: TOM/Chris, Gross/Micro L4/4, H PYLORI -- Patient: Patty Wright [id number] (Continued) -- Specimen: [id number] Received: 07/27/23-1353 (Continued) Pathological Diagnosis (Continued) D. Colon, biopsy: - Benign colonic mucosa with focal hyperplastic changes and prominent lymphoid aggregate Clinical Information Change in bowel habits, bloating, increased pain, rule out celiac, rule out H. pylori for IHS, rule out microscopic colitis Gross Description A. Received in formalin labeled with the patient's name, date of and duodenal biopsy rule out celiac is one pollock tissue measuring 0.7 x 0.3 x 0.2 cm. Entirely submitted in one cassette labeled A1. B. Received in formalin labeled with the patient's name, date of and gastric biopsy rule out H. pylori for IHS is one pollock tissue measuring 0.2 cm. Entirely submitted in one cassette labeled B1. C. Received in formalin labeled with the patient's name, date of and gastric polyp are two pollock tissues measuring 0.5 x 0.4 x 0.3 cm and 0.9 x 0.3 x 0.3 cm. Entirely submi tted in one cassette labeled C1. D. Received in formalin labeled with the patient's name, date of and random biopsies rule out microscopic colitis are two pollock tissues averaging 0.3 x 0.2 x 0.2 cm. Entirely submitted in one cassette labeled D1. Microscopic Description A. Two H E slides reviewed. The microscopic examination confirms the diagnosis. B. Two H E slides reviewed. The microscopic examination confirms the diagnosis. C. Two H E slides reviewed. The microscopic examination confi (more content not included)... Normal [facility] CBC AUTO DIFFon 01-18-2023 BASO # 0.1 103/ul Normal 0.0-0.1 [facility] Comment on above: Performed By: #### C BC #### [facility] [address] [place] [id number] Vasyl Irving Basophils/100 WBC (Bld) 1.0 % Normal 0.2-2.0 [facility] Comment on above: Performed By: #### C BC #### [facility] [address] [place], [place] [address] Dr. Vasyl Irving EO # 0.1 103/ul Normal 0.0-0.7 [facility] Comment on above: Performed By: #### C BC #### [facility] [address] [place] [address] Dr. Vasyl Irving Eosinophils/100 WBC (Bld) 2.0 % Normal 0.9-7.0 [facility] Comment on above: Performed By: #### C BC #### [facility] [address] [place] [address] Dr. Vasyl Irving Erythrocyte distribution width (RBC) [Ratio] 12.7 % Normal 11.0-15.0 [facility] Comment on above: Performed By: #### C BC #### [facility] [address] [place] [address] Dr. Vasyl Irving Hematocrit (Bld) [Volume fraction] 42.6 % Normal 36.0-48.0 [facility] Comment on above: Performed By: #### C BC #### [facility] [address] [place] [address] Dr. Vasyl Irving Hemoglobin (Bld) [Mass/Vol] 14.2 g/dL Normal 12.0-16.0 [facility] Comment on above: Performed By: #### C BC #### [facility] [address] [place] [address] Dr. Vasyl Irving IG # 0.01 10e3/ul Normal 0.00-0.03 [facility] Comment on above: Performed By: #### C BC #### [facility] [address] [place] [address] Dr. Vasyl Irving IG % 0.2 % Normal 0.0-0.5 [facility] Comment on above: Performed By: #### C BC #### [facility] [address] [place] [address] Dr. Vasyl Irving LYMPH # 2.2 103/ul Normal 1.2-3.8 [facility] Comment on above: Performed By: #### C BC #### [facility] [address] [place] [address] Dr. Vasyl Irving Lymphocytes/100 WBC (Bld) 42.2 % Normal 20.5-60.0 [facility] Comment on above: Performed By: #### C BC #### [facility] [address] [place] [address] Dr. Vasyl Irving MANUAL DIFF REQ NO Normal [facility] Comment on above: Performed By: #### C BC #### [facility] [address] [place] [address] Dr. Vasyl Irving MCH (RBC) [Entitic mass] 31.7 pg Normal 26.7-34.0 [facility] Comment on above: Performed By: #### C BC #### [facility] [address] [place] [address] Dr. Vasyl Irving MCHC (RBC) [Mass/Vol] 33.3 g/dL Normal 29.9-35.2 [facility] Comment on above: Performed By: #### C BC #### [facility] [address] [place] [address] Dr. Vasyl Irving MCV (RBC) [Entitic vol] 95.1 fL Normal 81.0-99.0 [facility] Comment on above: Performed By: #### C BC #### [facility] [address] [place] [address] Dr. Vasyl Irving MONO # 0.3 103/ul Normal 0.3-0.8 [facility] Comment on above: Performed By: #### C BC #### [facility] [address] [place] [address] Dr. Vasyl Irving Monocytes/100 WBC (Bld) 5.9 % Normal 1.7-12.0 [facility] Comment on above: Performed By: #### C BC #### [facility] [address] [place] [address] Dr. Vasyl Irving NEUT # 2.5 103/ul Normal 1.4-6.5 [facility] Comment on above: Performed By: #### C BC #### [facility] [address] [place] [address] Dr. Vasyl Irving Neutrophils/100 WBC (Bld) 48.7 % Normal 43.0-75.0 [facility] Comment on above: Performed By: #### C BC #### [facility] [address] [place] [address] Dr. Vasyl Irving Platelet mean volume (Bld) [Entitic vol] 9.7 fL Normal 9.5-13.5 [facility] Comment on above: Performed By: #### C BC #### [facility] [address] [place] [address] Dr. Vasyl Irving PLT 220 103/ul Normal 150-450 [facility] Comment on above: Performed By: #### C BC #### [facility] [address] [place] [address] Dr. Vasyl Irving RBC 4.48 106/ul Normal 4.20-5.40 [facility] Comment on above: Performed By: #### C BC #### [facility] [address] [place] [address] Dr. Vasyl Irving WBC 5.1 103/ul Normal 4.0-11.0 [facility] Comment on above: Performed By: #### C BC #### [facility] [address] [place] [address] Dr. Vasyl Irving CRPon 01-18-2023 CRP [Mass/Vol] mg/L Normal <=1.0 [facility] Comment on above: Performed By: #### C RP, TSH #### [facility] [address] [place] [address] Dr. Vasyl Irving SED RATE [facility] 2022 SED RATE 13 mm/hr Normal <=30 [facility] Comment on above: Performed By: #### S EDR #### [facility] [address] [place] [address] Dr. Vasyl Irving TSHon 01-18-2023 TSH 1.088 uIU/mL Normal 0.358-3.74 0 [facility] Comment on above: Performed By: #### C RP, TSH #### [facility] [address] [place] [address] Dr. Vasyl Irving MG MAMM SCREEN 3D SERGEI CADon 01-09-2023 MG MAMM SCREEN 3D SERGEI CAD Patient: AMYRUFINAPATTY Morales Exam Date: 01/09/2023 : 1970 Gender:F Ordering : DR BRIJESH KEATING . Admission #: [id number] Family : Order #: [id number] CLICK HERE TO VIEW EXAM RADIOLOGY REPORT PROCEDURE: MAMMOGRAM SCREENING 3D BILATERAL CAD COMPARISON: MG MAMM SCREEN 3D SERGEI CAD, 01/05/2022. MG MAMM SCREEN 3D SERGEI CAD, 01/04/2021. MG MAMM SCREEN 3D SERGEI CAD, 01/03/2020. MG MAMM SCREEN SERGEI W CAD, 01/01/2019. INDICATIONS: Screening mammography Calculator Name NCI Breast Cancer Risk Assessment Tool 5 Year Breast Cancer Risk 1.00% Lifetime Breast Cancer Risk 7.70% Personal Breast Cancer No Personal Ovarian Cancer No Treatments None Family Cancers None LOCATION: [facility] BREAST COMPOSITION: Heterogeneously dense,which may obscure small masses. FINDINGS: DIAGNOSTIC CATEGORY 2--BENIGN FINDING: RIGHT BREAST: No significant suspicious finding. Scattered benign-appearing calcifications are present. No significant change has occurred. LEFT BREAST: No significant suspicious finding. No significant change has occurred. RECOMMENDATIONS: ROUTINE MAMMOGRAM AND CLINICAL EVALUATION IN 12 MONTHS. PLEASE NOTE: A NORMAL MAMMOGRAM DOES NOT EXCLUDE THE POSSIBILITY OF BREAST CANCER. A CLINICALLY SUSPICIOUS PALPABLE LUMP SHOULD BE BIOPSIED. Dictated by: Jose Easley M.D. on 01/09/2023 at 11:53 Approved by: Jose Easley M.D. on 01/09/2023 at 12:05 Normal [facility] PAP ACOG PANEL 2: 30 to 65on 11-09-2022 . . Normal [facility] Comment on above: Result Comment: Perf ormed at: WB Performed By: #### [id number] #### [facility] [address] [place] [address] [address] Vasyl Irving Age Gdln ACOG Testing 30-65 Normal [facility] Comment on above: Performed By: #### [id number] #### [facility] [address] [address] [address] Vasyl Irving DIAGNOSIS: Comment Normal [facility] Comment on above: Result Comment: NEGA TIVE FOR INTRAEPITHELIAL LESION OR MALIGNANCY. Performed at: WB Performed By: #### [id number] #### [facility] [address] [address] [address] Vasyl Irving HPV Aptima Negative Normal Negative [facility] Comment on above: Result Comment: This nucleic acid amplification test detects fourteen high-risk HPV types (16,18,31,33,35,39,45,51,52,56,58,59,66,68) without differentiation. Performed at: =G Performed By: #### [id number] #### [facility] [address] [place] [address] Dr. Vasyl Irving HPV Genotype Reflex Comment Normal [facility] Comment on above: Result Comment: Crit eria not met, HPV Genotype not performed. Performed at: WB Performed By: #### [id number] #### [facility] [address] [place] [address] Dr. Vasyl Irving Methodology: Comment Normal [facility] Comment on above: Result Comment: This liquid based ThinPrep(R) pap test was screened with the use of an image guided system. Performed at: WB Performed By: #### [id number] #### [facility] [address] [place] [address] Dr. Vasyl Irving Note: Comment Normal [facility] Comment on above: Result Comment: The Pap smear is a screening test designed to aid in the detection of premalignant and malignant conditions of the uterine cervix. It is not a diagnostic procedure and should not be used as the sole means of detecting cervical cancer. Both false-positive and false-negative reports do occur. . Performed at: WB Performed By: #### [id number] #### [facility] [address] [place] [address] Dr. Vasyl Irving Performed by: Comment Normal [facility] Comment on above: Result Comment: Ebenezer Wang Glass Cleaner (ASCP) Performed at: WB Performed By: #### [id number] #### [facility] [address] [place] [address] Dr. Vaysl Irving Specimen adequacy: Comment Normal [facility] Comment on above: Result Comment: Sati sfactory for evaluation. No endocervical cells are present. This is consistent with a history of hysterectomy. Performed at: WB Performed By: #### [id number] #### [facility] [address] [place] [address] Dr. Vasyl Irving STOOL CULTUREon 07-29-2022 Campylobacter Culture Final report Normal [facility] Comment on above: Performed By: #### C XSTOOL #### [facility] [address] [address] [address] Vasyl Irving E coli Shiga Toxin EIA Negative Normal Negative [facility] Comment on above: Performed By: #### C XSTOOL #### [facility] [address] [address] [address] Vasyl Irving Result 1 Comment Normal [facility] Comment on above: Result Comment: No S almonella or Shigella recovered. Performed By: #### C XSTOOL #### [facility] [address] [address] [address] Vasyl Irving Result Comment: No C ampylobacter species isolated. Salmonella/Shigel la Screen Final report Normal [facility] Comment on above: Performed By: #### C XSTOOL #### [facility] [address] [address] [address] Vasyl Irving Urinalysis - AUTOMATEDon Appearance (U) thick [employer] Other Bilirubin Ql (U) Negative [employer] Other Color (U) red/orange [employer] Other Glucose Ql (U) 100 [employer] Other Hemoglobin Ql (U) moderate [employer] Other Ketones Ql (U) trace [employer] Other Leukocyte esterase Test strip Ql (U) large [employer] Other Nitrite Ql (U) Positive [employer] Other pH (U) 5.0 [pH] [employer] Other Protein Ql (U) 100 [employer] Other Specific gravity (U) [Rel density] 1.010 [employer] Other Urobilinogen (U) [Mass/Vol] 2.0 mg/dL [employer] Other Urinalysis - AUTOMATED [employer] Other DIGITAL MAMM SCREENING W/ TO Agudelo 01-04-2021 DIGITAL MAMM SCREENING W/ ANIVAL Patient Name: PATTY WRIGHT STUDY: Digital mammography screening with anival; 01/04/2021 9:17 am ACCESSION NUMBER(S): [id number] ORDERING CLINICIAN: FELY DAMON INDICATION: Screening. COMPARISON: Comparison is made to prior digital mammograms dated 01/03/2020 FINDINGS: CC and MLO 2D digital mammograms and digital breast tomosynthesis images were obtained of the bilateral breasts. 3-D volume images were reconstructed in 4 views at an independent workstation as 1 mm slices through the breasts in both the CC and MLO projections. The breast tissue is heterogeneously dense, which may obscure small masses. No discrete mass or focal asymmetry is identified. No suspicious microcalcifications or foci of architectural distortion are seen. There has been no significant change. This study was interpreted with CAD. IMPRESSION: No mammographic evidence of malignancy. BI-RADS CATEGORY: Category: 1 - Negative. Recommendation: 1 Year Screening. 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 : Annual Screening Mammogram Provider Impressions Impression:. Thorough vaginal colposcopy revealed no gross abnormalities, no acetowhite change, and no abnormal iodine staining. No biopsies taken. Reviewed findings with pt. and recommend repeat pap in 1 year. Chief Complaint Patient presents today to have her colposcopy done. Patient states she has no concerns or questions. LMP- Hyster History of Present IllnessPt. presents for colposcopy. Hx of hysterectomy for non-cancerous cause. Pt. elected to have pap test in Apr 2020. This showed ASCUS/+ HPV 16 and +HPV other Pt. also requests mammogram order, previously got these from PCP Review of Systems Constitutional: no fever and no chills. Active Problems Problems Abdominal bloating (787.3) (R14.0) Abdominal pain (789.00) (R10.9) Atrophic vaginitis (627.3) (N95.2) Bilateral impacted cerumen (380.4) (H61.23) Cough (786.2) (R05) Demyelinating disease (341.9) (G37.9) Diarrhea, unspecified type (787.91) (R19.7) Distal paresthesia (782.0) (R20.2) Dizziness (780.4) (R42) Encounter for screening mammogram for breast cancer (V76.12) (Z12.31) Epigastric pain (789.06) (R10.13) Fatigue (780.79) (R53.83) Generalized abdominal pain (789.07) (R10.84) Hypothyroidism, unspecified type (244.9) (E03.9) Idiopathic peripheral neuropathy (356.9) (G60.9) Menopausal symptoms (627.2) (N95.1) Nausea in adult (787.02) (R11.0) Non-seasonal allergic rhinitis due to other allergic trigger (477.8) (J30.89) OAB (overactive bladder) (596.51) (N32.81) Sunburn, blistering (692.76) (L55.1) Vaginal Papanicolaou smear (V76.47) (Z12.72) Vasomotor symptoms due to menopause (627.2) (N95.1) Vitamin D deficiency (268.9) (E55.9) Past Medical History Problems History of endometriosis (V13.29) (Z87.42) History of gastroesophageal reflux (GERD) (V12.79) (Z87.19) History of hypothyroidism (V12.29) (Z86.39) History of malignant neoplasm of uterus (V10.42) (Z85.42) History of onychomycosis (V12.09) (Z86.19) History of screening mammography (V15.89) (Z92.89) 01/03/2020 01/01/2019 History of Menstruation Onset age 13 years History of Pap test, as part of routine gynecological examination (V76.2) (Z01.419) 05/19/2020; ASCUS, HPV POSITIVE 12/25/2018; UNSATISFACTORY History of Right ureteral stone (592.1) (N20.1) Surgical History Problems History of Ankle surgery History of Dilation and curettage History of Hysterectomy History of Salpingo-oophorectomy bilateral History of Tonsillectomy Family History Mother No pertinent family history Father No pertinent family history Sister Family history of malignant neoplasm of colon (V16.0) (Z80.0) Grandparent Family history of myocardial infarction (V17.3) (Z82.49) Maternal Uncle Family history of malignant neoplasm of colon (V16.0) (Z80.0) Social History Problems Denies alcohol consumption (V49.89) (Z78.9) No advance directives (V49.89) (Z78.9) Non-smoker (V49.89) (Z78.9) Allergies Medication erythromycin Recorded By: Laine Zimmerman; 10/05/2018 11:10:34 AM Current Meds Medication NameInstruction Dicyclomine HCl - 20 MG Oral TabletTAKE 1 TABLET 4 times daily PRN abdominal cramping Estradiol 10 MCG Vaginal Tablet1 PV QHS x 14 days then 1 PV twice weekly Famotidine 20 MG Oral TabletTake 1 tablet twice daily Levothyroxine Sodium 100 MCG Oral TabletTAKE 1 TABLET DAILY. Nortriptyline HCl - 25 MG Oral CapsuleTAKE 1 CAPSULE AT BEDTIME. Olopatadine HCl - 0.1 % Ophthalmic Solution Oxybutynin Chloride ER 5 MG Oral Tablet Extended Release 24 HourTake 1 tablet daily Pantoprazole Sodium 40 MG Oral Tablet Delayed ReleaseTAKE 1 TABLET DAILY. Premarin 1.25 MG Oral TabletTAKE 1 TABLET BY MOUTH EVERY DAY Vitamin B-12 ER 1000 MCG Oral Tablet Extended ReleaseTAKE 1 TABLET DAILY DIRECTED. Vitals Vital Signs Recorded: 15Dec2020 08:54AM Kxcbhjwvdcx77.8 F Koygtape914 Hclwpfqer49 Height5 ft 7.5 in Fqpuht100 lb 3.65 oz BMI Egxcvwtlei99.33 BSA Calculated1.74 LMPhsyter Physical Exam A+O x 3 Procedure Colposcopy Age: 50 ? No Hysterectomy? Yes Procedure: Colposcopy The patient is here for a Colposcopy of the Upper Vagina and Cuff. Indication: atypical squamous cells of undetermined significance. Discussed Risks, Benefits, Alternatives and Potential Complications: Risks, benefits and alternatives were discussed with the patient. We discussed possible complications and risks, including infection, bleeding and allergic reaction. Written consent was obtained prior to the procedure and is (more content not included)... Normal [facility] ONLINE PRODUCER - Office Visiton 04-22 ONLINE PRODUCER - Office Visit Chief Complaint PATIENT HERE TODAY FOR ANNUAL EXAM, PATIENT WOULD LIKE TO DISCUSS VAGINAL DRYNESS. PATIENT DOES SELF BREAST EXAMS, HAD A MAMMOGRAM THIS YEAR. LMP-HYSTERECTOMY. History of Present IllnessPt. reports history of hysterectomy in 20s due to precancerous cells and oopherectomy soon after due to endometriosis. Hx of all wnl paps, no co-testing. Reviewed evolution of ASCCP f/u guidelines with pt. and pt. elects to have co-testing today and d/c paps after that if cotesting is normal Pt. reports she took HRT for about 15 years after hysterectomy and then d/c'd due to changes in prescribing following [facility]. Saw Dr. Rao a month ago and began premarin. Pt. reports no change in sx since starting and also notes that vagina symptoms are the most bothersome. Pt. sees PCP and states she had a breast exam there and also a normal mammogram earlier this year. No other concerns or complaints Pt. moving out of town in a few months. Review of Systems Genitourinary: as noted in HPI. Endocrine: as noted in HPI. Active Problems Abdominal bloating (787.3) (R14.0) Abdominal pain (789.00) (R10.9) Bilateral impacted cerumen (380.4) (H61.23) Cough (786.2) (R05) Demyelinating disease (341.9) (G37.9) Diarrhea, unspecified type (787.91) (R19.7) Distal paresthesia (782.0) (R20.2) Dizziness (780.4) (R42) Encounter for screening mammogram for breast cancer (V76.12) (Z12.31) Epigastric pain (789.06) (R10.13) Fatigue (780.79) (R53.83) Generalized abdominal pain (789.07) (R10.84) Hypothyroidism, unspecified type (244.9) (E03.9) Idiopathic peripheral neuropathy (356.9) (G60.9) Nausea in adult (787.02) (R11.0) Non-seasonal allergic rhinitis due to other allergic trigger (477.8) (J30.89) OAB (overactive bladder) (596.51) (N32.81) Sunburn, blistering (692.76) (L55.1) Vasomotor symptoms due to menopause (627.2) (N95.1) Vitamin D deficiency (268.9) (E55.9) Past Medical History History of endometriosis (V13.29) (Z87.42) History of gastroesophageal reflux (GERD) (V12.79) (Z87.19) History of hypothyroidism (V12.29) (Z86.39) History of malignant neoplasm of uterus (V10.42) (Z85.42) History of onychomycosis (V12.09) (Z86.19) History of screening mammography (V15.89) (Z92.89) 01/03/2020 01/01/2019 History of Menstruation Onset age 13 years History of Pap test, as part of routine gynecological examination (V76.2) (Z01.419) 12/25/2018; UNSATISFACTORY History of Right ureteral stone (592.1) (N20.1) Surgical History History of Ankle surgery History of Dilation and curettage History of Hysterectomy History of Salpingo-oophorectomy bilateral History of Tonsillectomy Family History No pertinent family history No pertinent family history Family history of malignant neoplasm of colon (V16.0) (Z80.0) Family history of myocardial infarction (V17.3) (Z82.49) Family history of malignant neoplasm of colon (V16.0) (Z80.0) Social History Denies alcohol consumption (V49.89) (Z78.9) No advance directives (V49.89) (Z78.9) Non-smoker (V49.89) (Z78.9) Allergies erythromycin Recorded By: Laine Zimmerman; 10/05/2018 11:10:34 AM Current Meds Dicyclomine HCl - 20 MG Oral Tablet; TAKE 1 TABLET 4 times daily PRN abdominal cramping; Therapy: 65Blo8555 to (Evaluate:50Nce2591) Requested for: 82Zfa9825; Last Rx:[id number] Ordered Rx By: Yan Winslow; Dispense: 8 Days ; #:30 Tablet; Refill: 1;For: Epigastric pain; ELADIO = N; [id number]; Last Updated By: [employer]; 05/06/2020 11:44:32 AM Famotidine 20 MG Oral Tablet; Take 1 tablet twice daily; Therapy: 77Aea3382 to (Evaluate:45Ivi0201) Requested for: 73Tjj0871; Last Rx:[id number] Ordered Rx By: Yan Winslow; Dispense: 30 Days ; #:60 Tablet; Refill: 1;For: Epigastric pain; ELADIO = N; [id number]; Last Updated By: [employer]; 05/06/2020 11:44:29 AM Nortriptyline HCl - 25 MG Oral Capsule; TAKE 1 CAPSULE AT BEDTIME; Therapy: 17Ciw9933 to (Evaluate:19Oct2020) Requested for: 25Oct2019; Last Rx:[id number] Ordered Rx By: Yan Winslow; Dispense: 90 Days ; #:90 Capsule; Refill: 3;For: Health Maintenance; ELADIO = N; Verified Transmission to [facility] #6167; Last Updated By: [employer]; 10/25/2019 11:30:52 AM Pantoprazole Sodium 40 MG Oral Tablet Delayed Release; TAKE 1 TABLET DAILY Requested for: 70Lwz8976; Last Rx:[id number] Ordered Rx By: Yan Winslow; Dispense: 90 Days ; #:90 Tablet; Refill: 3;For: Health Maintenance; ELADIO = N; Verified Transmission to [facility] #6167; Last Updated By: [employer]; 02/03/2020 11:36:26 AM Levothyroxine Sodium 100 MCG Oral Tablet; TAKE 1 TABLET DAILY Requested for: 03Feb2020; Last Rx:[id number] Ordered Rx By: Yan Winslow; Dispense: 90 Days ; #:90 Tablet; Refill: 3;For: Hypothyroidism, unspecified type; ELADIO = N; Verified Transmission to [facility] #6167; Last Updated By: [employer]; 02/03/2020 11:36:28 AM Oxybutynin (more content not included)... Normal [facility] CBC AND DIFFERENTIALon 05-06 Basophils (Bld) [#/Vol] 0.00 10*3/uL Normal 0.00 - 0.10 [facility] Comment on above: Performed By: #### C BCDF #### [address] [address] Basophils/100 WBC (Bld) 0.7 % Normal 0.0 - 2.0 [facility] Comment on above: Performed By: #### C BCDF #### [address] [address] Eosinophils (Bld) [#/Vol] 0.10 10*3/uL Normal 0.00 - 0.70 [facility] Comment on above: Performed By: #### C BCDF #### [address] [address] Eosinophils/100 WBC (Bld) 2.2 % Normal 0.0 - 6.0 [facility] Comment on above: Performed By: #### C BCDF #### [address] [address] Erythrocyte distribution width (RBC) [Ratio] 13.6 % Normal 11.5 - 14.5 [facility] Comment on above: Performed By: #### C BCDF #### [address] [address] Hematocrit (Bld) [Volume fraction] 43.7 % Normal 36.0 - 46.0 [facility] Comment on above: Performed By: #### C BCDF #### [address] [address] Hemoglobin (Bld) [Mass/Vol] 14.4 g/dL Normal 12.0 - 16.0 [facility] Comment on above: Performed By: #### C BCDF #### [address] [address] Lymphocytes (Bld) [#/Vol] 1.80 10*3/uL Normal 1.20 - 4.80 [facility] Comment on above: Performed By: #### C BCDF #### [address] [address] Lymphocytes/100 WBC (Bld) 30.2 % Normal 13.0 - 44.0 [facility] Comment on above: Performed By: #### C BCDF #### [address] [address] MCHC (RBC) [Mass/Vol] 32.9 g/dL Normal 32.0 - 36.0 [facility] Comment on above: Performed By: #### C BCDF #### [address] [address] MCV (RBC) [Entitic vol] 97 fL Normal 80 - 100 [facility] Comment on above: Performed By: #### C BCDF #### [address] [address] Monocytes (Bld) [#/Vol] 0.30 10*3/uL Normal 0.10 - 1.00 [facility] Comment on above: Performed By: #### C BCDF #### [address] [address] Monocytes/100 WBC (Bld) 5.6 % Normal 2.0 - 10.0 [facility] Comment on above: Performed By: #### C BCDF #### [address] [address] Neutrophils (Bld) [#/Vol] 3.60 10*3/uL Normal 1.20 - 7.70 [facility] Comment on above: Result Comment: Perc ent differential counts (%) should be interpreted in the context of the absolute cell counts (cells/L). Performed By: #### C BCDF #### [address] [address] Neutrophils/100 WBC (Bld) 61.3 % Normal 40.0 - 80.0 [facility] Comment on above: Performed By: #### C BCDF #### [address] [id number] Platelets (Bld) [#/Vol] 224 10*3/uL Normal 150 - 450 [facility] Comment on above: Performed By: #### C BCDF #### [address] [address] RBC 4.52 x10E12/L Normal 4.00 - 5.20 [facility] Comment on above: Performed By: #### C BCDF #### [address] [address] WBC (Bld) [#/Vol] 5.8 10*3/uL Normal 4.4 - 11.3 [facility] Comment on above: Performed By: #### C BCDF #### [address] [id number] COMPREHENSIVE PANELon 2019 Albumin [Mass/Vol] 4.2 g/dL Normal 3.4 - 5.0 [facility] Comment on above: Performed By: #### C MP #### [address] [place] [id number] ALP [Catalytic activity/Vol] 64 U/L Normal 33 - 110 [facility] Comment on above: Performed By: #### C MP #### [address] [address] ALT [Catalytic activity/Vol] 17 U/L Normal 7 - 45 [facility] Comment on above: Result Comment: Sandie ents treated with Sulfasalazine may generate falsely decreased results for ALT. Performed By: #### C MP #### [address] [place] [id number] Anion gap [Moles/Vol] 10 mmol/L Normal 10 - 20 [facility] Comment on above: Performed By: #### C MP #### [address] [address] AST [Catalytic activity/Vol] 23 U/L Normal 9 - 39 [facility] Comment on above: Performed By: #### C MP #### [address] [address] Bilirubin [Mass/Vol] 0.6 mg/dL Normal 0.0 - 1.2 [facility] Comment on above: Performed By: #### C MP #### [address] [address] Calcium [Mass/Vol] 9.3 mg/dL Normal 8.6 - 10.3 [facility] Comment on above: Performed By: #### C MP #### [address] [address] Chloride [Moles/Vol] 103 mmol/L Normal 98 - 107 [facility] Comment on above: Performed By: #### C MP #### [address] [address] Creatinine [Mass/Vol] 0.55 mg/dL Normal 0.50 - 1.05 [facility] Comment on above: Performed By: #### C MP #### [address] [address] GFR- AM. >60 Normal >60 [facility] Comment on above: Result Comment: CALC ULATIONS OF ESTIMATED GFR ARE PERFORMED USING THE MDRD STUDY EQUATION FOR THE IDMS-TRACEABLE CREATININE METHODS. CLIN CHEM 2007;53:766-72 Performed By: #### C MP #### [address] [address] GFR-NON AM. >60 Normal >60 [facility] Comment on above: Performed By: #### C MP #### [address] [address] Glucose [Mass/Vol] 58 mg/dL Low 74 - 99 [facility] Comment on above: Performed By: #### C MP #### [address] [address] HCO3 (Bld) [Moles/Vol] 30 mmol/L Normal 21 - 32 [facility] Comment on above: Performed By: #### C MP #### [place] [address] Potassium [Moles/Vol] 4.0 mmol/L Normal 3.5 - 5.3 [facility] Comment on above: Performed By: #### C MP #### [address] [place] [address] Protein [Mass/Vol] 6.7 g/dL Normal 6.4 - 8.2 [facility] Comment on above: Performed By: #### C MP #### [place] [address] Sodium [Moles/Vol] 139 mmol/L Normal 136 - 145 [facility] Comment on above: Performed By: #### C MP #### [place] [address] Urea nitrogen [Mass/Vol] 14 mg/dL Normal 6 - 23 [facility] Comment on above: Performed By: #### C MP #### [place] [address] LIPASEon 05-06-2020 Lipase [Catalytic activity/Vol] 22 U/L Normal 9 - 82 [facility] Comment on above: Result Comment: Francheska puncture immediately after or during the administration of Metamizole may lead to falsely low results. Testing should be performed immediately prior to Metamizole dosing. Performed By: #### L IPAS #### [address] [place] [id number] Office Visit (Primary Care T xt/Forms)on 05-06-2020 Follow-up visit Diagnoses/Problems Assessed Epigastric pain (789.06) (R10.13) Fatigue (780.79) (R53.83) Nausea in adult (787.02) (R11.0) Orders Epigastric pain Start: Dicyclomine HCl - 20 MG Oral Tablet; TAKE 1 TABLET 4 times daily PRN abdominal cramping Complete Blood Count + Differential; Status:Active; Requested for:[id number]; Start: Famotidine 20 MG Oral Tablet; Take 1 tablet twice daily Comprehensive Metabolic Panel; Status:Active; Requested for:43Zce5276; Lipase, Serum; Status:Active; Requested for:33Mmq5501; Epigastric pain, Nausea in adult Gastroenterology Referral Evaluation and Treatment Evaluate AND Treat Status: Active Requested for: [id number] Chief Complaint nausea x 2 weeks but has always had stomach issues. Wants referral to gastro History of Present Illness nausea x 1-2 weeks. bloated and inc nausea with eating. but has had constipation and diarrhea and stomach/intestinal issues most of life. zantac in past has helped sometimes. coffee, motrin, carbonated and spicey foods all make it worse. colon done 11/2019 - ok add pepcid add prn bentyl avoidance of worsening foods etc labs refer Dr Suárez. Sounds IBS but ? need EGD. Review of Systems Constitutional: feeling tired, but not feeling poorly. Cardiovascular: no chest pain, no palpitations and no chest pressure. Respiratory: cough, but no dyspnea with exertion. Gastrointestinal: abdominal pain, constipation, diarrhea, nausea and bloating, but no heartburn, no blood in stools, no dysphagia and no vomiting. Genitourinary: normal urine frequency, no dysuria, no vaginal discharge, no blood in urine. Musculoskeletal: back pain. Integumentary: no skin lesions and no rashes. Psychiatric: no sleep disturbances. Active Problems Problems Abdominal bloating (787.3) (R14.0) Abdominal pain (789.00) (R10.9) Bilateral impacted cerumen (380.4) (H61.23) Cough (786.2) (R05) Demyelinating disease (341.9) (G37.9) Diarrhea, unspecified type (787.91) (R19.7) Distal paresthesia (782.0) (R20.2) Dizziness (780.4) (R42) Encounter for screening mammogram for breast cancer (V76.12) (Z12.31) Generalized abdominal pain (789.07) (R10.84) Hypothyroidism, unspecified type (244.9) (E03.9) Idiopathic peripheral neuropathy (356.9) (G60.9) Non-seasonal allergic rhinitis due to other allergic trigger (477.8) (J30.89) OAB (overactive bladder) (596.51) (N32.81) Sunburn, blistering (692.76) (L55.1) Vasomotor symptoms due to menopause (627.2) (N95.1) Vitamin D deficiency (268.9) (E55.9) Past Medical History Problems History of endometriosis (V13.29) (Z87.42) History of gastroesophageal reflux (GERD) (V12.79) (Z87.19) History of hypothyroidism (V12.29) (Z86.39) History of malignant neoplasm of uterus (V10.42) (Z85.42) History of onychomycosis (V12.09) (Z86.19) History of screening mammography (V15.89) (Z92.89) History of Menstruation History of Pap test, as part of routine gynecological examination (V76.2) (Z01.419) History of Right ureteral stone (592.1) (N20.1) Surgical History Problems History of Ankle surgery History of Dilation and curettage History of Hysterectomy History of Salpingo-oophorectomy bilateral History of Tonsillectomy Family History Mother No pertinent family history Father No pertinent family history Sister Family history of malignant neoplasm of colon (V16.0) (Z80.0) Grandparent Family history of myocardial infarction (V17.3) (Z82.49) Maternal Uncle Family history of malignant neoplasm of colon (V16.0) (Z80.0) Social History Problems Denies alcohol consumption (V49.89) (Z78.9) No advance directives (V49.89) (Z78.9) Non-smoker (V49.89) (Z78.9) Current Meds Medication NameInstruction Levothyroxine Sodium 100 MCG Oral TabletTAKE 1 TABLET DAILY. Nortriptyline HCl - 25 MG Oral CapsuleTAKE 1 CAPSULE AT BEDTIME. Olopatadine HCl - 0.1 % Ophthalmic Solution Oxybutynin Chloride ER 5 MG Oral Tablet Extended Release 24 HourTake 1 tablet daily Pantoprazole Sodium 40 MG Oral Tablet Delayed ReleaseTAKE 1 TABLET DAILY. Premarin 0.625 MG Oral TabletTAKE 1 TABLET DAILY DIRECTED. Vitamin B-12 ER 1000 MCG Oral Tablet Extended ReleaseTAKE 1 TABLET DAILY DIRECTED. Allergies Medication erythromycin Vitals Vital Signs Recorded: 29Pyv1101 11:21AM Temperature: 97.3 F Heart Rate: 70 Systolic: 104 Diastolic: 60 Blood Pressure Cuff Size: Adult Height: 5 ft 7.5 in Weight: 146 lb 0.3 oz BMI Calculated: 22.53 BSA Calculated: 1.78 Tobacco Use: b) No Fall Screening: a) No falls within the last year O2 Saturation: 98 Physical Exam General: Alert and oriented, No acute distress. Ambulation status: With steady gait. Appearance: Well nourished, Calm. Behavior: Cooperative. Respiratory: Lungs are clear to auscultation, Respirations are non-labored, Breath sounds are equal, Symmetrical chest wall expansion. Cardiovascular: Normal rate, Regular rhythm, No murmur, N (more content not included)... Normal [facility] ONLINE PRODUCER - Office Visiton 03-21 ONLINE PRODUCER - Office Visit Chief Complaint Patient is here to discuss her menopause symptoms. 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 Patient is having mood swings, vaginal dryness, hot flashes, night sweats, can't sleep, brain fog, weight gain, and pain with intercourse. History of Present IllnessPatient presents noticing increased menopausal symptoms, vaginal dryness, discomfort with intercourse due to dryness that has become more noticeable over the last 4 to 6 months. She had a previous hysterectomy. She had been on hormone replacement therapy in the distant past. Review of Systems Review of Systems: Constitutional: No fever or chills Respiratory: No shortness of breath, or cough Cardiovascular: No chest pain or syncope Breasts: No breast pain, no masses, no nipple discharge Gastrointestinal: No nausea, vomiting, or diarrhea, no abdominal pain Genitourinary: No dysuria or frequency Gynecology: Negative except as noted in history of present illness All other: All other systems reviewed and negative for complaint Active Problems Abdominal bloating (787.3) (R14.0) Abdominal pain (789.00) (R10.9) Bilateral impacted cerumen (380.4) (H61.23) Cough (786.2) (R05) Demyelinating disease (341.9) (G37.9) Diarrhea, unspecified type (787.91) (R19.7) Distal paresthesia (782.0) (R20.2) Dizziness (780.4) (R42) Encounter for screening mammogram for breast cancer (V76.12) (Z12.31) Generalized abdominal pain (789.07) (R10.84) Hypothyroidism, unspecified type (244.9) (E03.9) Idiopathic peripheral neuropathy (356.9) (G60.9) Non-seasonal allergic rhinitis due to other allergic trigger (477.8) (J30.89) Sunburn, blistering (692.76) (L55.1) Vitamin D deficiency (268.9) (E55.9) Past Medical History History of endometriosis (V13.29) (Z87.42) History of gastroesophageal reflux (GERD) (V12.79) (Z87.19) History of hypothyroidism (V12.29) (Z86.39) History of malignant neoplasm of uterus (V10.42) (Z85.42) History of onychomycosis (V12.09) (Z86.19) History of screening mammography (V15.89) (Z92.89) 01/01/2019 History of Menstruation Onset age 13 years History of Pap test, as part of routine gynecological examination (V76.2) (Z01.419) 12/25/2018; UNSATISFACTORY History of Right ureteral stone (592.1) (N20.1) Surgical History History of Ankle surgery History of Dilation and curettage History of Hysterectomy History of Salpingo-oophorectomy bilateral History of Tonsillectomy Family History No pertinent family history No pertinent family history Family history of malignant neoplasm of colon (V16.0) (Z80.0) Family history of myocardial infarction (V17.3) (Z82.49) Family history of malignant neoplasm of colon (V16.0) (Z80.0) Social History Denies alcohol consumption (V49.89) (Z78.9) No advance directives (V49.89) (Z78.9) Non-smoker (V49.89) (Z78.9) Allergies erythromycin Recorded By: Laine Zimmerman; 10/05/2018 11:10:34 AM Current Meds Nortriptyline HCl - 25 MG Oral Capsule; TAKE 1 CAPSULE AT BEDTIME; Therapy: 25Oct2019 to (Evaluate:19Oct2020) Requested for: 25Oct2019; Last Rx:25Oct2019 Ordered Rx By: Yan Winslow; Dispense: 90 Days ; #:90 Capsule; Refill: 3;For: Health Maintenance; ELADIO = N; [id number]; Last Updated By: [employer]; 10/25/2019 11:30:52 AM Oxybutynin Chloride 5 MG Oral Tablet; Take 1 tablet daily Requested for: 03Feb2020; Last Rx:03Feb2020 Ordered Rx By: Yan Winslow; Dispense: 90 Days ; #:90 Tablet; Refill: 3;For: Health Maintenance; ELADIO = N; [facility]; Last Updated By: [employer]; 02/03/2020 11:36:38 AM Pantoprazole Sodium 40 MG Oral Tablet Delayed Release; TAKE 1 TABLET DAILY Requested for: 03Feb2020; Last Rx:03Feb2020 Ordered Rx By: Yan Winslow; Dispense: 90 Days ; #:90 Tablet; Refill: 3;For: Health Maintenance; ELADIO = N; [id number]; Last Updated By: [employer]; 02/03/2020 11:36:26 AM Levothyroxine Sodium 100 MCG Oral Tablet; TAKE 1 TABLET DAILY Requested for: 03Feb2020; Last Rx:03Feb2020 Ordered Rx By: Yan Winslow; Dispense: 90 Days ; #:90 Tablet; Refill: 3;For: Hypothyroidism, unspecified type; ELADIO = N; [facility]; Last Updated By: [employer]; 02/03/2020 11:36:28 AM Olopatadine HCl - 0.1 % Ophthalmic Solution; Therapy: [id number] to Recorded Rx By: BECCA; Dispense: 30 Days ; #:5; Refill: 0; ELADIO = N; Record; Last Updated By: Fadumo Fonseca; 10/25/2019 11:03:17 AM Vitamin B-12 ER 1000 MCG Oral Tablet Extended Release; TAKE 1 TABLET DAILY DIRECTED; Therapy: (Recorded:07Nov2018) to Recorded Dispense: 0 Days ; #: Sufficient Tablet; Refill: 0; ELADIO = N; Record; Last Updated By: Kia Dodge; 11/07/2018 8:35:43 AM Vitals Vital Signs Recorded: [id number] 01:13PM Gqliitudljf08.1 F Oqvmynvs662 Mllpvaswx17 Height5 ft 7.5 in Nmusip71.8 kg BMI Ssdnxirbzd00.72 BSA Calculated (more content not included)... Normal [facility] Primary [facility] Visit (Text/For ms)on 02-03-2020 Primary Care Visit (Text/Forms) Diagnoses/Problems Assessed Sunburn, blistering (692.76) (L55.1) Orders Health Maintenance Renew: Oxybutynin Chloride 5 MG Oral Tablet; Take 1 tablet daily Renew: Pantoprazole Sodium 40 MG Oral Tablet Delayed Release; TAKE 1 TABLET DAILY Hypothyroidism, unspecified type Renew: Levothyroxine Sodium 100 MCG Oral Tablet; TAKE 1 TABLET DAILY Sunburn, blistering Start: predniSONE 10 MG Oral Tablet; 4 PO daily x 3 days, 3 daily x 3 days, 2 daily x 3 days, 1 daily x 3 days, then stop Start: Silver sulfADIAZINE 1 % External Cream; APPLY AND RUB IN A THIN FILM TO AFFECTED AREAS TWICE DAILY.(AM AND PM) Chief Complaint S/P URGENT CARE SUNBURN History of Present Illness sunburn is better, but kalani some edema lower legs and feet. blisters are gone now. will add pred prn silvadene. cool compresses and time. fluids Review of Systems Constitutional: not feeling tired, no fever, not feeling poorly and no chills. Cardiovascular: no chest pain and no palpitations. Gastrointestinal: no nausea and no vomiting. Integumentary: a rash and itching. Active Problems Problems Abdominal bloating (787.3) (R14.0) Abdominal pain (789.00) (R10.9) Bilateral impacted cerumen (380.4) (H61.23) Cough (786.2) (R05) Demyelinating disease (341.9) (G37.9) Diarrhea, unspecified type (787.91) (R19.7) Distal paresthesia (782.0) (R20.2) Dizziness (780.4) (R42) Encounter for screening mammogram for breast cancer (V76.12) (Z12.31) Generalized abdominal pain (789.07) (R10.84) Hypothyroidism, unspecified type (244.9) (E03.9) Idiopathic peripheral neuropathy (356.9) (G60.9) Non-seasonal allergic rhinitis due to other allergic trigger (477.8) (J30.89) Vitamin D deficiency (268.9) (E55.9) Past Medical History Problems History of endometriosis (V13.29) (Z87.42) History of endometriosis (V13.29) (Z87.42) History of gastroesophageal reflux (GERD) (V12.79) (Z87.19) History of gastroesophageal reflux (GERD) (V12.79) (Z87.19) History of hypothyroidism (V12.29) (Z86.39) History of malignant neoplasm of uterus (V10.42) (Z85.42) History of malignant neoplasm of uterus (V10.42) (Z85.42) History of onychomycosis (V12.09) (Z86.19) History of onychomycosis (V12.09) (Z86.19) History of screening mammography (V15.89) (Z92.89) History of Menarche (V21.8) History of Pap test, as part of routine gynecological examination (V76.2) (Z01.419) History of Right ureteral stone (592.1) (N20.1) Surgical History Problems History of Ankle surgery History of Dilation and curettage History of Hysterectomy History of Salpingo-oophorectomy bilateral History of Tonsillectomy Family History Mother No pertinent family history Father No pertinent family history Sister Family history of malignant neoplasm of colon (V16.0) (Z80.0) Grandparent Family history of myocardial infarction (V17.3) (Z82.49) Maternal Uncle Family history of malignant neoplasm of colon (V16.0) (Z80.0) Social History Problems Denies alcohol consumption (V49.89) (Z78.9) No advance directives (V49.89) (Z78.9) Non-smoker (V49.89) (Z78.9) Current Meds Medication NameInstruction Levothyroxine Sodium 100 MCG Oral TabletTAKE 1 TABLET DAILY. Nortriptyline HCl - 25 MG Oral CapsuleTAKE 1 CAPSULE AT BEDTIME. Olopatadine HCl - 0.1 % Ophthalmic Solution Oxybutynin Chloride 5 MG Oral TabletTake 1 tablet daily Pantoprazole Sodium 40 MG Oral Tablet Delayed ReleaseTAKE 1 TABLET DAILY. Vitamin B-12 ER 1000 MCG Oral Tablet Extended ReleaseTAKE 1 TABLET DAILY DIRECTED. Allergies Medication erythromycin Vitals Vital Signs Recorded: 03Feb2020 11:07AM Temperature: 97.7 F Heart Rate: 70 Systolic: 102 Diastolic: 64 Height: 5 ft 7.5 in Weight: 150 lb 3 oz BMI Calculated: 23.18 BSA Calculated: 1.8 Tobacco Use: b) No Fall Screening: a) No falls within the last year O2 Saturation: 98 Physical Exam healing areas of sunburn, blisters gone now - arms and legs. some edema lower legs and feet. Signatures Electronically signed by : Yan Winslow MD; Feb 03 2020 11:39AM EST (Author) Normal [facility] Provider Note - ED v2on Provider Note - ED v2 Provider Note - ED v2: Chart Review: HISTORY OF PRESENTING ILLNESS PATTY is a 49 year old Female and was seen by me at 28-Jan-2020 10:18 for a chief complaint of (Sunburn). Other complaints include: Patient presents for evaluation of sunburn. Patient was on [place] 2 days ago and 3 days ago and now reports sunburn covering entire body. Patient reports focus of the burn over bilateral hips, bilateral lower legs, and bilateral shoulders. Patient reports vesicular formation in these areas. Patient has increased fluid intake and is taking oozn-vzo-bzbpyph medications with little relief. No other complaints.. Triage Information: Most recent Vital Sign Value Date PAST MEDICAL HISTORY ATTESTATION: I have reviewed and confirmed nurse's/medic's notes for patient's medications, allergies, medical history, and surgical history ALLERGIES/INTOLERANCES: Intolerance Allergen: erythromycin Type: Drug Reaction: Nausea/Vomiting HEALTH HISTORY: Medical History Name:GERD (gastroesophageal reflux disease) Code:K21.9 Name:History of cervical cancer Code:Z85.41 Name:Hypothyroidism Code:E03.9 Name:History of kidney stones Code:Z87.442 OUTPATIENT MEDICATIONS: Home Medications Review Status for Reconciliation: Complete Med Status: Patient Currently Takes Medications Drug Name: levothyroxine 100 mcg (0.1 mg) oral tablet Instructions: 1 tab(s) orally once a day Drug Name: nortriptyline 25 mg oral capsule Instructions: 1 cap(s) orally once a day (at bedtime) Drug Name: pantoprazole 40 mg oral delayed release tablet Instructions: 1 tab(s) orally once a day Drug Name: oxybutynin 5 mg oral tablet Instructions: 1 tab(s) orally once a day Drug Name: Vitamin B12 100 mcg oral tablet Instructions: 1 tab(s) orally once a day SIGNIFICANT EVENTS: Past Medical History Description:HYPOTHYROIDISM/ ACID REFLUX Past Surgical History Description:TONSILLECTOMY & ADENOIDS/ COMPLETE HYSTRECTOMY Description:RT FOOT RECONSTRUCTION/ D&C ONLINE PRODUCER: Is : no Is : no REVIEW OF SYSTEMS REVIEW OF SYSTEMS: Comments Review of Systems Constitutional: See HPI Musculoskeletal: No decreased range of motion. Integumentary: See HPI Neurologic: Alert and oriented X4, No numbness, No tingling. All other systems are negative PHYSICAL EXAM CONSTITUTIONAL: Well appearing, well nourished, awake, alert, oriented to person, place, time/situation and in no apparent distress. EYES: Clear bilaterally, pupils equal, round and reactive to light. MUSCULOSKELETAL: Spine appears normal, range of motion is not limited, no muscle or joint tenderness. NEUROLOGICAL: Alert and oriented, no focal deficits, no motor or sensory deficits. SKIN: Entire body covered with first-degree sunburn; there is one large vesicle on the right hip, patch of small vesicles on the left hip, scattered small patches of vesicles on bilateral lower legs and left shoulder; all vesicles are intact; no open wounds MEDICAL DECISION MAKING/ED COURSE MDM/ED COURSE: Exam revealed first-degree sunburn of most of the body. Considering extent of the burn, a 3-day prescription for tramadol was provided. OARRS reviewed, appropriate, and consistent with provided history. Other strategies of pain relief reviewed in detail. Recommend increase fluid intake as well. Patient counseled to keep vesicles intact for as long as possible and if they should open, then treat as an open wound with Neosporin. Patient's clinical presentation is otherwise unremarkable at this time. Patient is discharged with instructions to follow-up with primary care or seek emergency medical attention for worsening symptoms or any new concerns. CLINICAL IMPRESSION Diagnosis/Annotation: ED Dx Name:Sunburn of first degree Code:L55.0 Dispostion: discharged Type: home ATTESTATION CRITICAL CARE TIME Is this a critically ill patient: no Electronic Signatures: Jeff Aden (PAC) (Signed 28-Jan-2020 10:57) Authored: Provider Note - ED v2 Last Updated: 28-Jan-2020 10:57 by Jeff Aden (PAC) [facility] 06-05-2019 Interpreted by: KERWIN MAE06/05/19 16:54MRN: [id number] Name: PATTY WRIGHT STUDY:CT ABDOMEN AND PELVIS WITH CONTRAST; 06/05/2019 2:28 pm INDICATION:abd pain/bloating Unspecified abdominal pain. COMPARISON:04/22/2016 ORDERING CLINICIAN:JAVAD MARTNI TECHNIQUE:CT of the abdomen and pelvis was performed. Standard contiguous axialimages were obtained at 3 mm slice thickness through the abdomen andpelvis. Coronal and sagittal reconstructions at 3 mm slice thicknesswere performed. 100 cc of Omnipaque 350 administered intravenously without immediatecomplication. FINDINGS:LOWER CHEST:The lung bases are hyperinflated. No definite focal nodules. Smallhiatal hernia. ABDOMEN: LIVER:The liver is enlarged measuring 21 cm in longest axis. Small leftlobe liver cyst. BILE DUCTS:No bile duct dilatation. GALLBLADDER:No definite gallstones. PANCREAS:Unremarkable pancreas. SPLEEN:Unremarkable spleen. ADRENAL GLANDS:No adrenal masses. KIDNEYS AND URETERS:No hydronephrosis. No definite renal stones or masses. Nohydroureter. Extrarenal pelvis bilaterally. PELVIS: BLADDER:The bladder is grossly unremarkable. REPRODUCTIVE ORGANS:No definite masses. BOWEL:No evidence of bowel obstruction. No focal inflammatory changes.Colonic stool. Unremarkable appendix. VESSELS:Retroaortic left renal vein. Normal caliber aorta. PERITONEUM/RETROPERITONEUM/LYM PH NODES:No retroperitoneal adenopathy. No ascites. BONES AND ABDOMINAL WALL:Grossly unremarkable. IMPRESSION:No acute abnormalities within the abdomen or the pelvis.Electronically signed by: BLANCA 06/05/19 16:54 Normal [facility] [employer] Work Phone: Please click on the link to view the study images Normal [facility] [employer] Work Phone: CLOST DIFF. TOXIN, PCRon C. difficile toxin genes SANAM+probe Ql (Stl) Canceled web[employer] Work Phone: Comment on above: This assay detects t he presence of the tcdB (toxin B) gene via DNA amplification, and results should be interpreted in the context of the patients history and clinical findings. This test cannot be performed on formed stools or used as a test of cure, and should not be performed more than once per 7 days. TEST CLOST DIFF. TOX IN, PCR WAS CANCELLED, 06/05/2019 01:14 ONLY PAM-RADHA AND PARA-MARTINA RECEIVED. NEED FRESH STOOL FOR PROPER TESTING. CLOST DIFF. TOXIN, PCR Canceled [facility] Work Phone: Comment on above: TEST CLOST DIFF. TOX IN, PCR WAS CANCELLED, 06/05/2019 01:14 ONLY PAM-RADHA AND PARA-MARTINA RECEIVED. NEED FRESH STOOL FOR PROPER TESTING. Otheron 06-04-2019 Negative NEGATIVE [facility] Work Phone: Comment on above: SOURCE: STOOL PATHOGEN PCR PANELon 1 Campylobacter sp DNA.diarrheagenic SANAM+probe Ql (Stl) NOT DETECTED See Below [facility] Work Phone: Comment on above: Reference Range: NOT DETECTED E. coli stx1 gene SANAM+probe Ql (Unsp spec) NOT DETECTED See Below [facility] Work Phone: Comment on above: Reference Range: NOT DETECTED E. coli stx2 gene SANAM+probe Ql (Unsp spec) NOT DETECTED See Below [facility] Work Phone: Comment on above: Reference Range: NOT DETECTED Norovirus genogroup I and II RNA SANAM+probe Nom (Stl) NOT DETECTED See Below [facility] Work Phone: Comment on above: Reference Range: NOT DETECTED Rotavirus RNA SANAM+probe Nom (Stl) NOT DETECTED See Below [facility] Work Phone: Comment on above: Reference Range: NOT DETECTED The enteric PCR panel is a panel of sensitive and specific amplified nucleic acid tests indicated as an aid in the diagnosis of specific bacterial and viral agents of gastrointestinal illness, in conjunction with other clinical, laboratory, and epidemiological information. This test is not approved for monitoring these infections. Monitoring is available for Salmonella and Shigella infections-request test Stool PCR Follow-Up (STLPF) . Monitoring tests are not available at this time for other enteric agents in this panel. Shigella sp DNA SANAM+probe Ql (Unsp spec) NOT DETECTED See Below [facility] [[email or web address] [facility] Work Phone: Comment on above: Reference Range: NOT DETECTED Vibrio sp DNA SANAM+probe Nom (Unsp spec) NOT DETECTED See Below [facility] [employer] [facility] Work Phone: Comment on above: Reference Range: NOT DETECTED Yersinia sp DNA SANAM+probe Nom (Unsp spec) NOT DETECTED See Below [facility] [employer] [facility] Work Phone: Comment on above: SOURCE: Reference Ra nge: NOT DETECTED STOOL PATHOGEN PCR PANEL NOT DETECTED See Below [facility] Work Phone: Comment on above: Reference Range: NOT DETECTED Complete Blood Count + Diffdami kirby 06-03-2019 Basophils (Bld) [#/Vol] 0.00 {x10E9/L} See Below [facility] Work Phone: Comment on above: Reference Range: 0.0 0 - 0.10 Basophils/100 WBC (Bld) 0.9 % 0.0 - 2.0 [facility] Work Phone: Eosinophils (Bld) [#/Vol] 0.10 {x10E9/L} See Below [facility] Work Phone: Comment on above: Reference Range: 0.0 0 - 0.70 Eosinophils/100 WBC (Bld) 1.7 % 0.0 - 6.0 [facility] Work Phone: Erythrocyte distribution width (RBC) [Ratio] 13.4 % See Below [facility] Work Phone: Comment on above: Reference Range: 11. 5 - 14.5 Hematocrit (Bld) [Volume fraction] 44.9 % See Below [facility] Work Phone: Comment on above: Reference Range: 36. 0 - 46.0 Hemoglobin (Bld) [Mass/Vol] 14.9 g/dL See Below [facility] [[email or web address] Work Phone: Comment on above: Reference Range: 12. 0 - 16.0 Lymphocytes (Bld) [#/Vol] 2.00 {x10E9/L} See Below [facility] [[email or web address] [facility] Work Phone: Comment on above: Reference Range: 1.2 0 - 4.80 Lymphocytes/100 WBC (Bld) 37.8 % See Below [facility] [[email or web address] [facility] Work Phone: Comment on above: Reference Range: 13. 0 - 44.0 MCHC (RBC) [Mass/Vol] 33.1 g/dL See Below [facility] [[email or web address] [facility] Work Phone: Comment on above: Reference Range: 32. 0 - 36.0 MCV (RBC) [Entitic vol] 96 fL 80 - 100 [facility] [[email or web address] [facility] Work Phone: Monocytes (Bld) [#/Vol] 0.30 {x10E9/L} See Below [facility] [[email or web address] [facility] Work Phone: Comment on above: Reference Range: 0.1 0 - 1.00 Monocytes/100 WBC (Bld) 5.9 % 2.0 - 10.0 [facility] [[email or web address] [facility] Work Phone: Neutrophils (Bld) [#/Vol] 2.80 {x10E9/L} See Below [facility] [[email or web address] [facility] Work Phone: Comment on above: Reference Range: 1.2 0 - 7.70 Neutrophils/100 WBC (Bld) 53.7 % See Below [facility] [[email or web address] [facility] Work Phone: Comment on above: Reference Range: 40. 0 - 80.0 Platelets (Bld) [#/Vol] 252 {x10E9/L} 150 - 450 [facility] [[email or web address] [facility] Work Phone: RBC (Bld) [#/Vol] 4.69 {x10E12/L} See Below [facility] Work Phone: Comment on above: Reference Range: 4.0 0 - 5.20 WBC (Bld) [#/Vol] 5.3 {x10E9/L} 4.4 - 11.3 [facility] [employer] Work Phone: Lipase, Serumon 06-03-2019 Lipase [Catalytic activity/Vol] 15 U/L 9 - 82 [facility] [employer] Work Phone: Comment on above: Venipuncture immedia tely after or during the administration of Metamizole may lead to falsely low results. Testing should be performed immediately prior to Metamizole dosing. Metabolic Panelon 06-03-2019 ALP [Catalytic activity/Vol] 75 U/L 33 - 110 [employer] [facility] Work Phone: Anion gap [Moles/Vol] 10 mmol/L 10 - 20 [facility] Work Phone: Bilirubin [Mass/Vol] 0.6 mg/dL 0.0 - 1.2 [facility] [employer] Work Phone: Calcium [Mass/Vol] 9.8 mg/dL 8.6 - 10.3 [facility] [employer] Work Phone: Chloride [Moles/Vol] 106 mmol/L 98 - 107 [facility] [[email or web address] [employer] Work Phone: CO2 [Moles/Vol] 30 mmol/L 21 - 32 [facility] [employer] Work Phone: Creatinine [Mass/Vol] 0.61 mg/dL See Below [facility] [employer] Work Phone: Comment on above: Reference Range: 0.5 0 - 1.05 Glucose [Mass/Vol] 80 mg/dL 74 - 99 [facility] [[email or web address] [facility] Work Phone: Potassium [Moles/Vol] 4.1 mmol/L 3.5 - 5.3 [facility] Work Phone: Protein [Mass/Vol] 7.2 g/dL 6.4 - 8.2 [facility] Work Phone: Sodium [Moles/Vol] 142 mmol/L 136 - 145 [facility] Work Phone: Urea nitrogen [Mass/Vol] 13 mg/dL 6 - 23 [facility] Work Phone: Otheron 06-03-2019 Albumin BCP dye [Mass/Vol] 4.6 g/dL 3.4 - 5.0 [facility] Work Phone: ALT With P-5'-P [Catalytic activity/Vol] 13 U/L 7 - 45 [facility] Work Phone: Comment on above: Patients treated wit h Sulfasalazine may generate falsely decreased results for ALT. AST With P-5'-P [Catalytic activity/Vol] 17 U/L 9 - 39 [facility] Work Phone: >60 >60 [facility] Work Phone: Comment on above: CALCULATIONS OF VAUGHN MATED GFR ARE PERFORMED USING THE MDRD STUDY EQUATION FOR THE IDMS-TRACEABLE CREATININE METHODS. CLIN CHEM 2007;53:766-72 IGP W/hpv Rfx [id number] 01-02 Diagnosis: See Ref Lab Report Normal [facility] Comment on above: Order Comment: Thin Prep. Hysterectomy Performed By: #### [id number] #### LAVELLE [employer] [facility] [place] [address] [place] Mamm Screen w/CAD if perf ormed bilaton 01-01-2019 [place] Mamm Screen w/CAD if performed bilat Exam Date/Time: 01/01/2019 14:52 EDT Reason for Exam: SCREENING;Screening Report STUDY: Digital mammography screening; 01/01/2019 2:52 pm ACCESSION NUMBER(S): [id number] ORDERING CLINICIAN: Chance Rao INDICATION: Screening. COMPARISON: Comparison is made to prior digital mammograms dated 06/22/2017 and 05/16/2016 FINDINGS: CC and MLO 2D digital mammographic images of the bilateral breasts were obtained. The breast tissue is heterogeneously dense, which may obscure small masses. No discrete mass or focal asymmetry is identified. No suspicious microcalcifications or foci of architectural distortion are seen. There has been no significant change. This study was interpreted with CAD. IMPRESSION: No mammographic evidence of malignancy. BI-RADS CATEGORY: Category: 1 - Negative. Recommendation: Normal Interval Follow-up, Over Age 40. Recall Interval: 12 Months. Breast Density: Heterogeneous. FINAL REPORT Dictated: 01/01/2019 3:26 pm Mayank Sales MD Signed (Electronic Signature): 01/01/2019 3:26 pm Signed by: Mayank Sales MD Technologist: ADRIEN Assessment: BI-RADS Category 1-Negative Recommendation: Normal interval follow-up Normal [facility] Cytologyon 12-25-2018 [facility] Date of Procedure: 12/25/2018 Pathologist: SY GIRON Date Reported: 01/01/2019 Date Received: 12/26/2018 Submitting Physician: CHANCE RAO MD FINAL CYTOLOGICAL INTERPRETATION A. THINPREP PAP Vaginal Reflex - Ascus only: Specimen Adequacy: SPECIMEN PROCESSED AND EXAMINED, BUT UNSATISFACTORY FOR EVALUATION OF EPITHELIAL ABNORMALITY BECAUSE OF PAUCITY OF CELLULARITY. NO INTERPRETATION GIVEN. REPEAT STUDY/FURTHER INVESTIGATION IS SUGGESTED - VAGINA. Note: Paucity of cellularity is caused by an interfering lubricant present at time of Pap test collection. Electronically Signed Out By [facility], Cytology//MXG By the signature on this report, the individual or group listed as making the Final Interpretation/Diagnosis certifies that they have reviewed this case. Educational Note: Cervical cytology is a screening procedure primarily for squamous cancers and precursors and has associated false-negative and false-positive results as evidenced by published data. Your patient?s test should be interpreted in this context, together with patient?s history and clinical findings. Regular sampling and follow-up of unexplained clinical signs and symptoms are recommended to minimize false negative results. Clinical History Date of Last Menstrual Period: {Not Entered} Menstrual History: Hysterectomy Other Clinical Conditions: Reflex HPV Testing Ordered: Ascus and Above Z12.4, Z11.51 Source of Specimen A: THINPREP PAP Vaginal Reflex - Ascus only Normal [facility] MRI Brain w/ + w/o Contrasto n 11-19-2018 MRI Brain w/ + w/o Contrast Exam Date/Time: 11/19/2018 14:18 EDT Reason for Exam: DEMYELINATING DISEASE Report STUDY: MRI Brain w/ + w/o Contrast; 11/19/2018 2:18 pm INDICATION: DEMYELINATING DISEASE. COMPARISON: None. ACCESSION NUMBER(S): [id number] ORDERING CLINICIAN: Ba Callahan TECHNIQUE: Axial T2, FLAIR, DWI, gradient echo T2 and T1 weighted images of brain were acquired. Post contrast T1 weighted images were acquired after administration of 13 mL MultiHance gadolinium based intravenous contrast. Volumetric FLAIR images and multiplanar reformats were submitted for review. FINDINGS: CSF Spaces: The ventricles, sulci and basal cisterns are within normal limits. Parenchyma: There is no diffusion restriction abnormality to suggest acute infarct. There are a few punctate hyperintensities on FLAIR imaging in the subcortical and periventricular white matter. There is no abnormal parenchymal enhancement. There is no mass effect or midline shift. Paranasal Sinuses and Mastoids: There is a retention cyst or polyp within the right maxillary sinus. The mastoid air cells are clear. IMPRESSION: Minimal white-matter changes are entirely nonspecific and may be seen with migraine headaches, demyelinating processes, among others. FINAL REPORT Dictated: 11/19/2018 2:57 pm Freya Sarmiento DO Signed (Electronic Signature): 11/19/2018 2:57 pm Signed by: Freya Sarmiento DO Technologist: RADHA Normal [facility] MRI Spine Cervical w/ + w/o Contraston 11-19-2018 MRI Spine Cervical w/ + w/o Contrast Exam Date/Time: 11/19/2018 14:17 EDT Reason for Exam: DEMYELINATING DISEASE Report STUDY: MRI Spine Cervical w/ + w/o Contrast; 11/19/2018 2:17 pm INDICATION: DEMYELINATING DISEASE. COMPARISON: None. ACCESSION NUMBER(S): [id number] ORDERING CLINICIAN: Ba Callahan TECHNIQUE: Sagittal T1, T2, STIR, and axial T2 weighted images were acquired through the cervical spine. Axial and sagittal post-contrast T1 weighted images were also acquired following administration of 13 mL of MultiHance. FINDINGS: Alignment: There is minimal retrolisthesis of C4 on C5, C5 on C6, and C6 on C7. Vertebrae/Intervertebral Discs: There is a Schmorl's node along the superior endplate of C6. There is an ovoid focus of increased signal on T1 and T2 weighted imaging within T1 likely corresponding to a hemangioma. There is degenerative endplate spurring primarily at C5-6. Cord: No intrinsic signal abnormality or abnormal enhancement of the cervical cord is identified C1-C2: The cervicomedullary junction appears unremarkable. There is no central canal stenosis. C2-C3: There is no posterior disc contour abnormality. There is no significant central canal or neural foraminal stenosis. C3-C4: There is no posterior disc contour abnormality. There is no significant central canal or neural foraminal stenosis. C4-C5: There is mild disc bulging and endplate spurring partially effacing the ventral subarachnoid space. There is mild neural foraminal narrowing secondary to uncovertebral joint and facet hypertrophy on the right. C5-C6: A posterior disc/osteophyte complex contributes to mild narrowing of the central canal. Uncovertebral joint and facet hypertrophy produce moderate right and mild left neural foraminal stenosis. Exam Date/Time: 11/19/2018 14:17 EDT Report C6-C7: There is mild disc bulging and endplate spurring without central canal stenosis. There is mild right-sided neural foraminal narrowing secondary to uncovertebral joint and facet hypertrophy. C7-T1: There is no posterior disc contour abnormality. There is no significant central canal or neural foraminal stenosis. The upper thoracic vertebrae and spinal canal are unremarkable. The prevertebral and posterior paraspinous soft tissues are within normal limits. IMPRESSION: Degenerative changes of the cervical spine primarily from C4-5 through C6-7. FINAL REPORT Dictated: 11/19/2018 2:40 pm Freya Sarmiento DO Signed (Electronic Signature): 11/19/2018 2:40 pm Signed by: Freya Sarmiento DO Technologist: RADHA Normal [facility] Lab Miscellaneouson 03-28-20 19 Status See Ref Lab Report Normal [facility] Comment on above: Performed By: #### 2 [id number] #### [facility] [address] [place] [address], [place] [address] Status See Ref Lab Report Normal [facility] Comment on above: Performed By: #### 2 [id number] #### [facility] [address] [place] [address] U Prot Electroon 11-12-2018 M-Feng Percent Not Observed Normal Not Observed [facility] Comment on above: Performed By: #### 2 [id number] #### [facility] [address] [place] [address] Protein mass conc Comment Normal [facility] Comment on above: Result Comment: Protein electrophoresis scan will follow via computer, mail, or manager regional sales delivery. Performed At: [facility] [id number] Kasandra Quinn PhD Ph:[phone] Performed By: #### 2 [id number] #### [facility] [address] [place] [address] Protein mass conc 14.5 mg/dL Normal Not Estab. [facility] Comment on above: Performed By: #### 2 [id number] #### [facility] [address] [place] [address] U Albumin 24.4 % Normal [facility] Comment on above: Performed By: #### 2 [id number] #### [facility] [address] [place] [address] U Alpha 1 Glob 3.3 % Normal [facility] Comment on above: Performed By: #### 2 776271 #### [facility] [address] [place] [address] U Alpha 2 Glob 21.3 % Normal [facility] Comment on above: Performed By: #### 2 681976 #### [facility] [address] [place] [address] U Beta Glob 34.7 % Normal [facility] Comment on above: Performed By: #### 2 706389 #### [facility] [address] [place] [address] U Gamma Glob 16.2 % [facility] Comment on above: Performed By: #### 2 298924 #### [facility] [address] [place] [address] Lab Miscellaneouson 11-09-19 19 Status See Ref Lab Report Normal [facility] Comment on above: Performed By: #### 2 [id number] #### [facility] [address] [place] [address] Test Name urine heavy met Normal [facility] Comment on above: Performed By: #### 2 270781 #### [facility] [address] [place] [address] SPEon 11-08-2018 Albumin mass conc 4.0 g/dL Normal 2.9-4.4 [facility] Comment on above: Performed By: #### 2 736121 #### [facility] [address] [place] [address] Albumin/Globulin mass ratio 1.4 {ratio} Normal 0.7-1.7 [facility] Comment on above: Performed By: #### 2 063723 #### [facility] [address] [place] [address] Alpha 1 Glob 0.2 gm/dL Normal 0.0-0.4 [facility] Comment on above: Performed By: #### 2 444129 #### [facility] [address] [place] [address] Alpha 2 Glob 0.7 gm/dL Normal 0.4-1.0 [facility] Comment on above: Performed By: #### 2 852489 #### [facility] [address] [place] [address] Beta Glob 1.0 gm/dL Normal 0.7-1.3 [facility] Comment on above: Performed By: #### 2 759388 #### [facility] [address] [place] [address] Gamma Glob 0.9 gm/dL Normal 0.4-1.8 [facility] Comment on above: Performed By: #### 2 490164 #### [facility] [address] [place] [address] Globulin mass conc (S) 2.8 g/dL Normal 2.2-3.9 [facility] Comment on above: Performed By: #### 2 177675 #### [facility] [address] [place] [address] M-Feng Not Observed Normal Not Observed [facility] Comment on above: Performed By: #### 2 066780 #### [facility] [address] [place] [address] Protein mass conc Comment Normal [facility] Comment on above: Result Comment: The SPE pattern appears essentially unremarkable. Evidence of monoclonal protein is not apparent. Performed At: [facility] [address] [place], [place] [id number] Kasandra Quinn PhD Ph:[phone] Performed By: #### 2 706597 #### [facility] [address] [place] [address] Protein mass conc 6.8 g/dL Normal 6.0-8.5 [facility] Comment on above: Performed By: #### 2 938425 #### [facility] [address] [place] [address] Protein mass conc Comment Normal [facility] Comment on above: Result Comment: Protein electrophoresis scan will follow via computer, mail, or manager regional sales delivery. Performed At: [facility] [address], [place] [id number] Kasandra Quinn PhD Ph:[phone] Performed By: #### 2 050346 #### [facility] [address] [place] [address] CRPon 11-07-2018 CRP mass conc 0.13 mg/dL Normal 0.00-1.00 [facility] Comment on above: Performed By: #### 2 287835 #### [facility] [place] [address] Folateon 11-07-2018 Folate Lvl 19.70 ng/mL Normal >=5.00 [facility] Comment on above: Result Comment: The WHO Technical Consultation on folate and vitamin B12 deficiencies has determined that deficient folate concentrations are considered to be less than 4ng/ml. Performed By: #### 2 843148 #### [facility] [address] [place] [address] VjlT1zmm 11-07-2018 Hemoglobin A1c/Hemoglobin.to peter mass fraction (Bld) 5.2 % Normal 4.0-6.3 [facility] Comment on above: Performed By: #### 2 189610 #### [facility] Jhaveri [facility] [place] [address] Lab Miscellaneouson 11-08-19 19 Test Name paraneoplastic Normal [facility] Comment on above: Performed By: #### 2 309313 #### [facility] Jhaveri [facility] [place] [address] Test Name lyme rfx Normal [facility] Comment on above: Performed By: #### 2 112962 #### [facility] Jhaver[facility] [address] [place], [place] [address] Sed Rate Automatedon 019 Sed Rate Automated 12 mm/hr Normal [facility] Comment on above: Result Comment: AGE- SPECIFIC REFERENCE RANGES FOR SEDIMENTATION RATE AUTOMATED REFERENCE RANGE - MM/HR AGE MEN WOMEN 0-2 0-2 - PUBERTY 3-13 3-13 PUBERTY - 50 YRS 0-15 0-20 > 50 YRS 0-20 0-30 Performed By: #### 2 820036 #### [facility] Jhaveri [address] [place], [place] [address] Vit B12on 11-07-2018 Cobalamin (Vitamin B12) mass conc 995 pg/mL High 180-914 [facility] Comment on above: Performed By: #### 2 625668 #### [facility] Jhaveri [address] [place], [place] [address] Vitamin D 25 Hydroxyon 11-07 Vitamin D 25 Hydroxy 17.0 ng/mL Low 30.0-100.0 [facility] Comment on above: Performed By: #### 2 972918 #### [facility] Jhaveri [address] [place] [address] Auto Diffon 09-25-2018 Basophils #/vol (Bld) 0.0 E3/mcL Normal 0.0-0.2 [facility] Comment on above: Order Comment: Order Added by Discern Expert. Performed By: #### 2 640739 #### [facility] LzoanoHemo [facility] [place] [address] Basophils/100 WBC (Bld) 1.1 % Normal 0.0-2.0 [facility] Comment on above: Order Comment: Order Added by Discern Expert. Performed By: #### 2 240843 #### [facility] Rem[facility] [address] [place] [address] Eos Absolute 0.1 E3/mcL Normal 0.0-0.7 [facility] Comment on above: Order Comment: Order Added by Discern Expert. Performed By: #### 2 421351 #### [facility] Rem[facility] [address] [place] [address] Eosinophils/100 WBC (Bld) 3.0 % Normal 0.0-11.0 [facility] Comment on above: Order Comment: Order Added by Discern Expert. Performed By: #### 2 133350 #### [facility] Rem[facility] [address] [place] [address] Lymphocytes #/vol (Bld) 1.7 E3/mcL Normal 1.2-3.4 [facility] Comment on above: Order Comment: Order Added by Discern Expert. Performed By: #### 2 820488 #### [facility] [address] [place] [address] Lymphocytes/100 WBC (Bld) 40.9 % Normal 20.0-55.0 [facility] Comment on above: Order Comment: Order Added by Discern Expert. Performed By: #### 2 497720 #### [facility] Rem[facility] [address] [place] [address] [place] Absolute 0.3 E3/mcL Normal 0.0-0.7 [facility] Comment on above: Order Comment: Order Added by Discern Expert. Performed By: #### 2 610007 #### [facility] Rem[facility] [address] [place] [address] Monocytes/100 WBC (Bld) 7.7 % Normal 0.0-10.0 [facility] Comment on above: Order Comment: Order Added by Discern Expert. Performed By: #### 2 584002 #### [facility] [address] [place] [address] Neutro Absolute 2.0 E3/mcL Normal 1.4-6.5 [facility] Comment on above: Order Comment: Order Added by Discern Expert. Performed By: #### 2 582742 #### [facility] Rem[facility] [address] [place] [address] Neutro Auto 47.3 % Normal 37.0-75.0 [facility] Comment on above: Order Comment: Order Added by Discern Expert. Performed By: #### 2 273271 #### [facility] Lu [address] [place], [place] [address] CBC w/ Auto Diffon 9 Erythrocyte distribution width Ratio (RBC) 13.6 % Normal 11.5-14.5 [facility] Comment on above: Performed By: #### 2 032196 #### [facility] Lu [address] [place], [place] [address] Hematocrit Volume Fraction (Bld) 45.2 % Normal 36.0-48.0 [facility] Comment on above: Performed By: #### 2 354194 #### [facility] Lu [address] [place], [place] [address] Hemoglobin mass conc (Bld) 14.7 g/dL Normal 12.0-16.0 [facility] Comment on above: Performed By: #### 2 165719 #### [facility] Smitho [address] [place], [place] [address] MCH Entitic mass (RBC) 31.1 pg High 27.0-31.0 [facility] Comment on above: Performed By: #### 2 716185 #### [facility] Smitho [address] [place], [place] [address] MCHC mass conc (RBC) 32.5 g/dL Low 33.0-37.0 [facility] Comment on above: Performed By: #### 2 127239 #### [facility] Smitho [address] [place], [place] [address] MCV Entitic volume (RBC) 95.5 fL Normal 78.0-100.0 [facility] Comment on above: Performed By: #### 2 455012 #### [facility] Smitho [facility] [place] [address] Platelet mean volume Entitic volume (Bld) 8.7 fL Normal 7.4-11.0 [facility] Comment on above: Performed By: #### 2 665713 #### [facility] LozanoHemo [facility] [place] [address] Platelets #/vol (Bld) 236 E3/mcL Normal 130-400 [facility] Comment on above: Performed By: #### 2 003692 #### [facility] Rem[facility] [place] [address] RBC #/vol (Bld) 4.73 E6/mcL Normal 3.90-5.40 [facility] Comment on above: Performed By: #### 2 798789 #### [facility] Rem[facility] [address] [place] [address] WBC #/vol (Bld) 4.3 E3/mcL Normal 3.6-11.0 [facility] Comment on above: Performed By: #### 2 759486 #### [facility] Rem[facility] [address] [place] [address] CMPon 09-25-2018 Albumin mass conc 4.5 g/dL Normal 3.4-5.0 [facility] Comment on above: Performed By: #### 2 350953 #### [facility] [employer] [address] [place] [address] Albumin/Globulin mass ratio 1.8 {ratio} Normal 1.1-1.9 [facility] Comment on above: Performed By: #### 2 644725 #### [facility] [employer] [address] [place] [address] Alk Phos 77 Int._Unit/L Normal 33-110 [facility] Comment on above: Performed By: #### 2 182833 #### [facility] [employer] [address] [place] [address] ALT enzyme act/vol 14 Int._Unit/L Normal 7-45 [facility] Comment on above: Performed By: #### 2 158934 #### [facility] [employer] [address] [place] [address] Anion gap molar conc 9 mmol/L Low 10-20 [facility] Comment on above: Performed By: #### 2 280497 #### [facility] [employer] [address] [place] [address] AST enzyme act/vol 19 Int._Unit/L Normal 9-39 [facility] Comment on above: Performed By: #### 2 109341 #### [facility] [employer] [address] [place] [address] Bili Total 0.49 mg/dL Normal 0.00-1.20 [facility] Comment on above: Performed By: #### 2 141135 #### [facility] [employer] [address] [place] [address] Calcium mass conc 9.8 mg/dL Normal 8.6-10.3 [facility] Comment on above: Performed By: #### 2 734125 #### [facility] [employer] [address] [place], [place] [address] Chloride molar conc 105 mmol/L Normal 98-107 [facility] Comment on above: Performed By: #### 2 564708 #### [facility] [employer] [address] [place] [address] CO2 molar conc 30.0 mmol/L Normal 21.0-32.0 [facility] Comment on above: Performed By: #### 2 566935 #### [facility] [employer] [address] [place] [address] Creatinine mass conc 0.6 mg/dL Normal 0.5-1.1 [facility] Comment on above: Performed By: #### 2 312492 #### [facility] [employer] [address] [place] [address] Globulin mass conc (S) 3.0 g/dL Normal 2.0-4.0 [facility] Comment on above: Performed By: #### 2 194679 #### [facility] [employer] [address] [place] [address] Glucose mass conc 86 mg/dL Normal 70-99 [facility] Comment on above: Performed By: #### 2 641667 #### [facility] [employer] [address] [place] [address] Potassium molar conc 4.2 mmol/L Normal 3.5-5.3 [facility] Comment on above: Performed By: #### 2 702783 #### [facility] [employer] [address] [place] [address] Protein mass conc 7.0 g/dL Normal 6.4-8.2 [facility] Comment on above: Performed By: #### 2 522183 #### [facility] [employer] [address] [place] [address] Sodium molar conc 140 mmol/L Normal 136-145 [facility] Comment on above: Performed By: #### 2 708187 #### [facility] [employer] [address] [place], [place] [address] Urea nitrogen mass conc 13 mg/dL Normal 6-23 [facility] Comment on above: Performed By: #### 2 831926 #### [facility] [employer] [address] [place], [place] [address] Urea nitrogen/Creatini ne mass ratio 21.7 ratio Normal 5.4-30.0 [facility] Comment on above: Performed By: #### 2 656134 #### [facility] [employer] [address] [place] [address] TSHon 09-25-2018 Thyrotropin Qn 0.02 mcIU/mL Low 0.30-5.60 [facility] Comment on above: Performed By: #### 2 035723 #### [facility] [employer] [address] [place] [address] eGFRon 09-25-2018 GFR/1.73 sq M predicted among non-blacks MDRD vol rate/area (S/P/Bld) mL/min/{1.73_m2} Normal [facility] Comment on above: Order Comment: Order added by Discern Expert. Performed By: #### 1 [id number] #### [facility] [employer] [address] [place] [address] Vit B12on 08-07-2018 Cobalamin (Vitamin B12) mass conc 784 pg/mL Normal 180-914 [facility] Comment on above: Performed By: #### 2 055386 #### [facility] [employer] [address] [place] [address] TSHon 05-02-2018 Thyrotropin Qn 0.06 mIU/m Low 0.30-5.60 [facility] Comment on above: Performed By: #### 2 103714 #### [facility] [address] [place] [address] Vit B12on 05-02-2018 Cobalamin (Vitamin B12) mass conc 240 pg/mL Normal 180-914 [facility] Comment on above: Performed By: #### 2 772561 #### [facility] [address] [place] [address] C Urineon 02-07-2018 C Urine Final Report: Light growth of Mixed skin contaminants in Moderate Normal skin michael isolated Normal [facility] Comment on above: Performed By: #### 2 337479 #### [facility] [address] [place] [address] Pathology ([facility])on 03-16-2017 Pathology ([facility]) FINAL GYNECOLOGIC CY TOLOGY [id number] ADEQUACYUnsatisfactory for Evaluation. Specimen is processed and examined, butunsatisfactory for evaluation of epithelial abnormality due to:Scant cellularity.GENERAL CATEGORIZATIONUnsatisfactory for evaluation.COMMENTHigh Risk HPV was ordered and performed at [facility]. Results arereported below in this report. A negative result is a normal result. Apositive result is an abnormal result.HPV HIGH RISK NEGATIVE: The results of this test indicate the patient'sspecimen is NEGATIVE for the following high-risk HPV types:16/18/31/33/35/39/45/51/ 52/56/58/59/66/68. RELATED LABORATORY RESULTSOrdered by: Anders Date: 03/16/2017 Ord Time: 20:44Test Collected Result Abnormal Range Units SpecimenName D&T TypeHPV Negative NA MSCRNA, 7HighRiskThe HPV test detects E6/E7 viral messenger RNA (mRNA) high-risk HPV kcmiypdui92,18,31,33,35,39,45, 51,55,58,59,66, and 68 which are associated with cervicalcancer and its precursor lesions. However, cross-reactions with othergenotypes may occur. Results should be correlated with cytologic andhistologic findings. Sensitivity may be affected by cellularity of specimen.CLINICAL HISTORYComment: LMP: No UterusHysterectomySPECIMEN(A) SCREENING VAGINAL LIQUID-BASED PAP SMEARPerformed at [facility], [address] [place], [place] [id number] by: Signed Out by: DAVON CASTILLO Glass Cleaner Reported: 03/20/2017 Normal [facility] Comment on above: Performed By: #### G YMarixa ####[facility] [address] [place] [address] Vital Signs Date Time Vital Sign Value Performing Clinician Facility 07-24-2023 14:45-0500 Body height 171.45 cm Freya Ponce Other [facility] Other 07-24-2023 14:45-0500 Body mass index (BMI) [Ratio] 22.53 kg/m2 Freya Ponce Other [facility] Other 07-24-2023 14:45-0500 Body weight 66.23 kg Freya Kris Other [facility] Other 07-24-2023 14:45-0500 Diastolic blood pressure 62 mm[Hg] Freya Ponce Other [facility] Other 07-24-2023 14:45-0500 SaO2% (BldA) [Mass fraction] 98 % Freya Ponce Other [facility] Other 07-24-2023 14:45-0500 Systolic blood pressure 104 mm[Hg] Freya Ponce Other [facility] Other 06-30-2023 09:00-0500 Body height 171.45 cm Freya Ponce Other [facility] Other 06-30-2023 09:00-0500 Body mass index (BMI) [Ratio] 22.68 kg/m2 Freya Ponce Other [facility] Other 06-30-2023 09:00-0500 Body weight 66.68 kg Freya Ponce Other [facility] Other 06-30-2023 09:00-0500 Diastolic blood pressure 64 mm[Hg] Freya Ponce Other [facility] Other 06-30-2023 09:00-0500 SaO2% (BldA) [Mass fraction] 97 % Freya Ponce Other [facility] Other 06-30-2023 09:00-0500 Systolic blood pressure 102 mm[Hg] Freya Ponce Other [facility] Other 05-10-2023 13:00-0400 Body height 171.45 cm Imad Asaad Other [facility] Other 05-10-2023 13:00-0400 Body mass index (BMI) [Ratio] 23.07 kg/m2 Imad Asaad Other [facility] Other 05-10-2023 13:00-0400 Body weight 67.81 kg Imad Asaad Other [facility] Other 05-10-2023 13:00-0400 Diastolic blood pressure 83 mm[Hg] Imad Asaad Other [facility] Other 05-10-2023 13:00-0400 Systolic blood pressure 130 mm[Hg] Imad Asaad Other [facility] Other 04-26-2023 13:34-0400 Blood Pressure Location FREYA JOHNSON [facility] 04-26-2023 13:34-0400 Diastolic blood pressure 76 mm[Hg] FREYA JOHNSON [facility] 04-26-2023 13:34-0400 Heart rate 76 /min FREYA JOHNSON [facility] 04-26-2023 13:34-0400 Respiratory rate 16 /min FREYA JOHNSON [facility] 04-26-2023 13:34-0400 Systolic blood pressure 112 mm[Hg] FREYA JOHNSON [facility] 09-09-2022 09:30-0500 Body height 171.45 cm Xiomara Aaron Other [facility] Other 09-09-2022 09:30-0500 Body mass index (BMI) [Ratio] 23.61 kg/m2 Xiomara Aaron Other [facility] Other 09-09-2022 09:30-0500 Body weight 69.4 kg Xiomara Aaron Other [facility] Other 09-09-2022 09:30-0500 Diastolic blood pressure 72 mm[Hg] Xiomara Aaron Other [facility] Other 09-09-2022 09:30-0500 SaO2% (BldA) [Mass fraction] 98 % Xiomara Aaron Other [facility] Other 09-09-2022 09:30-0500 Systolic blood pressure 126 mm[Hg] Xiomara Aaron Other [facility] Other 12-08-2021 09:21-0400 Blood Pressure Location FREYA JOHNSON [facility] 12-08-2021 09:21-0400 Diastolic blood pressure 77 mm[Hg] FREYA JOHNSON [facility] 12-08-2021 09:21-0400 Heart rate 72 /min FREYA JOHNSON [facility] 12-08-2021 09:21-0400 Systolic blood pressure 111 mm[Hg] FREYA JOHNSON [facility] 11-01-2021 11:45-0400 Body height 171.45 cm Shan Ranjitgorge Other [facility] Other 11-01-2021 11:45-0400 Body mass index (BMI) [Ratio] 22.53 kg/m2 Shan Ranjitgorge Other [facility] Other 11-01-2021 11:45-0400 Body weight 66.23 kg Shan Ranjitgorge Other [facility] Other 11-01-2021 11:45-0400 Diastolic blood pressure 69 mm[Hg] Shan Kerr Other [facility] Other 11-01-2021 11:45-0400 Systolic blood pressure 107 mm[Hg] Shan Kerr Other [facility] Other 10-17-2021 14:05-0500 Body height 171.45 cm Blaire Collier Other [facility] Other 10-17-2021 14:05-0500 Body mass index (BMI) [Ratio] 23.45 kg/m2 Blaire Collier Other [facility] Other 10-17-2021 14:05-0500 Body temperature 97.8 [degF] Blaire Collier Other [facility] Other 10-17-2021 14:05-0500 Body weight 68.95 kg Blaire Collier Other [facility] Other 10-17-2021 14:05-0500 Diastolic blood pressure 63 mm[Hg] Blaire Collier Other [facility] Other 10-17-2021 14:05-0500 Respiratory rate 18 /min Blaire Collier Other [facility] Other 10-17-2021 14:05-0500 SaO2% (BldA) [Mass fraction] 99 % Blaire Collier Other [facility] Other 10-17-2021 14:05-0500 Systolic blood pressure 99 mm[Hg] Blaire Collier Other [facility] Other 06-11-2019 12:08-0400 BMI (Body Mass Index) 22.84 kg/m2 Saba Jenkins [facility] Work Phone: 06-11-2019 12:08-0400 Body weight 67.13 kg Saba Jenkins [facility] Work Phone: 06-11-2019 12:08-0400 BP Diastolic 62 mm[Hg] Saba Jenkins [facility] Work Phone: 06-11-2019 12:08-0400 BP Systolic 110 mm[Hg] Saba Jenkins [facility] Work Phone: 06-11-2019 12:08-0400 BSA (Body Surface Area) 1.79 m2 [facility] Work Phone: 06-11-2019 12:08-0400 Height 171.45 cm Saba Dickerson [facility] Work Phone: 06-11-2019 12:08-0400 Pulse (Heart Rate) 76 /min Saba Dickerson [facility] Work Phone: 06-03-2019 12:41-0400 BMI (Body Mass Index) 22.49 kg/m2 Yan Winslow [facility] Work Phone: 06-03-2019 12:41-0400 Body weight 65 kg Yan Winslow [facility] [email or web address] Work Phone: 06-03-2019 12:41-0400 BP Diastolic 68 mm[Hg] Yan Winslow [email or web address] Work Phone: Comment on above: Location: [facility]; 06-03-2019 12:41-0400 BP Systolic 110 mm[Hg] Yan Winslow [facility] [[email or web address] Work Phone: Comment on above: Location: [facility]; 06-03-2019 12:41-0400 BSA (Body Surface Area) 1.75 m2 Yan Winslow [facility] [[email or web address] Work Phone: 06-03-2019 12:41-0400 Height 170 cm Yan Winslow [facility] [[email or web address]][employer] [facility] Work Phone: 06-03-2019 12:41-0400 Pulse (Heart Rate) 77 /min Yan Winslow [facility] Work Phone: Encounters Encounter Date Encounter Type Care Provider Facility Start: 04-30-2024 ambulatory FREYA Brooke ty:JUDITH Mcbride Start: 08-07-2023 End: 08-07-2023 ambulatory Xiomara Aaron Other [facility] Other Start: 08-07-2023 Telephone encounter Xiomara Aaron [facility] Start: 07-24-2023 End: 07-24-2023 ambulatory Freya Kris Other [facility] Other Start: 07-24-2023 Office outpatient vi sit 15 minutes Freya Ponce [facility] Start: 07-05-2023 End: 07-05-2023 ambulatory Freya Ponce Other [facility] Other Start: 07-05-2023 Telephone encounter Freya hemphill [facility] Start: 06-30-2023 End: 06-30-2023 ambulatory Freya Ponce Other [facility] Other Start: 06-30-2023 Office outpatient vi sit 15 minutes Freya Tranleyla [facility] Start: 05-10-2023 End: 05-10-2023 ambulatory Imad Asaad Other [facility] Other Start: 05-10-2023 Office outpatient ne w 45 minutes Imad Asaad [facility] Start: 04-26-2023 End: 04-27-2023 ambulatory FREYA JOHNSON Facility:[facility] Start: 04-26-2023 End: 04-26-2023 Patient encounter procedure FREYA JOHNSON [facility] Start: 03-24-2023 End: 03-24-2023 ambulatory Imad Asaad Other [facility] Other Start: 03-24-2023 Telephone encounter Imad Asaad [facility] Start: 03-16-2023 End: 03-16-2023 ambulatory Xiomara Aaron Facility:[facility] Start: 01-30-2023 End: 01-30-2023 ambulatory Imad Asaad Other [facility] Other Start: 01-30-2023 Telephone encounter Imad Josephbryan [facility] Start: 01-18-2023 ambulatory IMAD ASAAD Facility:[facility] Start: 01-09-2023 End: 01-10-2023 ambulatory IMAD ASAAD Facility:[facility] Start: 11-01-2022 End: 11-01-[address] BRIJESH KEATING . Facility:[facility] Start: 09-09-2022 End: 09-09-2022 ambulatory Xiomara Aaron Other [facility] Other Start: 09-09-2022 Office outpatient vi sit 15 minutes Xiomara Aaron [facility] Start: 07-23-2022 End: 07-24-[address] XIOMARA AARON Facility:[facility] Start: 07-21-2022 Encounter for cervic al smear to confirm findings of recent normal smear following initial abnormal smear Imad Asaad Other [facility] Other Start: 07-21-2022 Gynecological examination normal Imad Asaad Other [facility] Other Start: 07-21-2022 History of abnormal cervical Papanicolaou smear Imad Asaad Other [facility] Other Start: 12-16-2021 End: 12-16-2021 ambulatory Shan Kerr Other [facility] Other Start: 12-16-2021 Telephone encounter Shan Kerr [facility] Start: 12-14-2021 End: 12-14-2021 ambulatory Shan Kerr Other [facility] Other Start: 12-14-2021 Telephone encounter Shan Kerr [facility] Start: 12-08-2021 End: 12-08-2021 Patient encounter procedure FREYA JOHNSON [facility] Start: 11-19-2021 End: 11-19-2021 ambulatory Shan Usha Other [facility] Other Start: 11-19-2021 Telephone encounter Shan Kerr [facility] Start: 11-01-2021 End: 11-01-2021 ambulatory Shan Kerr Other [facility] Other Start: 11-01-2021 Office outpatient vi sit 25 minutes Shan Kerr [facility] Start: 10-20-2021 End: 10-20-2021 ambulatory Blaire Nixonler Other [facility] Other Start: 10-20-2021 Telephone encounter Blaire Collier [facility] Start: 10-17-2021 End: 10-17-2021 ambulatory Blaire Collier Other [facility] Other Start: 10-17-2021 Office outpatient vi sit 15 minutes Blaire Nixonler [facility] Start: 01-26-2021 Rx Change Melvin Roldan DO Work Phone: [facility] [address] Work Phone: Start: 01-25-2021 KARLEY Lauren Work Phone: [facility] [address] Work Phone: Start: 05-19-2020 Patient encounter procedure Fely Fried [facility] [address] Work Phone: Start: 05-06-2020 Patient encounter procedure Fely Fried [facility] [address] Work Phone: Start: 04-02-2020 Patient encounter procedure Fely Fried [facility] [address] Work Phone: Start: 02-03-2020 Patient encounter procedure Fely Fried [facility] [address] Work Phone: Start: 10-25-2019 Patient encounter procedure Fely Damon [address] Work Phone: Start: 06-11-2019 Patient encounter procedure Saba Jenkins [facility] Work Phone: Start: 06-03-2019 Patient encounter procedure Yan Winslow [facility] [[email or web address]]Medical [employer] Work Phone: Start: 05-29-2019 Patient encounter procedure Yan Winslow [facility] [[email or web address]Medical [employer] Work Phone: Start: 05-29-2019 Telemedicine consultation with patient Yan Winslow [facility] Work Phone: Start: 12-05-2018 Patient encounter procedure Yan Winslow [facility] [[email or web address]Medical [employer] Work Phone: Start: 11-27-2018 Patient encounter procedure Yan Winslow [facility] Work Phone: Start: 11-07-2018 Patient encounter procedure Yan Winslow [facility] [[email or web address]Medical [employer] Work Phone: Start: 12-10-2013 End: 12-10-2013 Telephone encounter Larry Allen DO Work Phone: Neurology Comment on above: Results Cancer cervix - screening done Chance Rao MD Work Phone: [address] Work Phone: Comment on above: 05/19/2020; ASCUS, HP V POSITIVE12/25/2018; UNSATISFACTORY; Procedures Date Procedure Procedure Detail Performing Clinician Start: 10-27-2021 Screening for malign ant neoplasm of breast Imad Asaad Other Start: 06-03-2019 Assay of lipase Yan Winslow Start: 06-03-2019 Blood count complete auto&auto difrntl wbc Yan Winslow Start: 06-03-2019 Comprehensive metabo lic 2000 panel Yan Winslow Start: 06-03-2019 CT Abdomen and Pelvi s with Contrast Yanjennifer Winslow Start: 06-03-2019 Giardia/Cryptosporidium Yan Winslow Start: 06-03-2019 Iadna-dna/rna gi pth gn multiplex probe tq 6-11 Yan Winslow Start: 06-03-2019 Inf agent det nuclei c acid clostridium amp probe Yan Winslow Bilateral salpingect kamlesh with oophorectomy Yanjennifer Winslow Dilation and curettage Patri nirmal Winslow Dilation and curetta ge of uterus FREYA JOHNSON H/O: hysterectomy FREYA MACKEY History of tonsillectomy JUAN JOSE JOHNSON Hysterectomy Yan Winslow Operative procedure on ankle Yan Winslow Procedure on foot FREYA MACKEY Tonsillectomy Yan Strickland s Plan of Treatment Date Care Activity Detail Author Start: 12-21-2021 Patient encounter procedure ANNUAL, Provider: Fely Damon, Status: Pen, Time: 9:00 AM [place] [id number] [employer] Work Phone: Start: 04-21-2021 Influenza vaccination INFLUENZ A (Season Ended) [facility] Start: 2019 Screening for malign ant neoplasm of colon [facility] Start: 2019 SHINGRIX VACCINE (1 of 2) DAWKINS GRIX VACCINE (1 of 2) [facility] Start: 2014 DIABETES SCREEN DIABETES SCREEN [facility] Start: 2014 LIPID SCREEN LIPID SCREEN [facility] Start: 2009 Mammography MAMMOGRAM [facility] Start: 1999 HPV TESTING HPV TESTING [facility] Start: 1990 PAP TESTING PAP TESTING [facility] Start: 1988 Urine microalbumin profile DTAP,TDAP,TD (1 - Tdap) [facility] Start: 1987 HEPATITIS C SCREENING HEPATITIS C SC FELIBERTO [facility] Start: 1987 HIV SCREENING HIV SCREENING [facility] Start: 1981 Adult depression screening assessment DEPRESSION SCREENING [facility] Immunizations Immunization Date Immunization Notes Care Provider Arian davis 05-30-2022 influenza virus vaccine, split virus (incl. purified surface antigen) Imad Asaad Other [facility] Other 05-30-2022 Prevnar 20 Imad Asaad Other [facility] Other 12-17-2020 SARS-CoV-2 (COVID-19 ) mRNA BNT-162b2 vax FREYA JOHNSON [facility] 11-25-2020 SARS-CoV-2 (COVID-19 ) mRNA BNT-162b2 msx FREYA JOHNSON [facility] Member Desk NEGATED: Highlighted row has not occurred!12-08-2021 influenza virus vaccine, unspecified formulation FREYA JOHNSON [facility] Member Desk Payers Date Payer Category Payer Self-pay 2021 Unknown [id number] 2011 Private Health Insurance SHEEBA UGALDE OAP [id number] 2011-2015 PPO [id number] 2008 Self-pay SELF PAY HSP/MED ICAL SELF PAY [id number] 2008-2015 SELF PAY Indemnity [id number] 1969 Unknown [id number] 1969 Unknown [id number] 1969 Unknown [id number] 1969 Unknown [id number] 1969 Unknown [id number] 1969 Unknown [id number] 1959 [id number] [id number] Unknown Unknown [id number] Social History Date Type Detail Facility Assertion Unknown if ever smoked [facility] Work Phone: Start: 08-01-2013 End: 04-26-2023 Tobacco smoking status NHIS Never smoker [facility] Start: 08-01-2013 Alcohol intake Current drinke r of alcohol (finding) [facility] Start: 07-30-2012 Alcohol Comment [facility] Start: 1970 Sex Assigned At Not on file [facility] Non-smoker [facility] [address] Work Phone: Tobacco smoking status Never [facility] Sex Assigned At Female [facility] Other Functional Status Date Assessment Result Facility 04-26-2023 Functional Status N/A [facility] NEGATED: Highlighted row Functional performance Functional status health issues are not documented Disease [facility] Work Phone: Mental Status Date Assessment Result Facility NEGATED: Highlighted row Cognitive function [Interpretation] Cognitive status health issues are not documented Disease [facility] Work Phone: Clinical Notes 12-12-2013 to 07-24-2023 Note Date & Type Note Facility 07-24-2023 Evaluation note Encounter Date Diagnosis Assessment Notes Jul, Acute recurrent maxillary sinusitis (ICD-10 - J01.01) Will tx tody for bacterial sinusitis based on physical exam and duration of symptoms. Take antibiotic as prescribed, complete entire course of therapy even if symptoms resolve. Supportive care as directed, push fluids and rest, Tylenol/Motrin as directed for aches/fever, warm moist compress over sinuses several times a day, cool mist humidifier, nasal saline spray as directed. Symptoms should improve in the next 3 days, if symptoms persist follow up with PCP. Immediate eval for warning s/sx as discussed. May need further evaluation with CT of the sinuses if symptoms do not improve after antibiotic. Patient verbalizes understanding and is agreeable to treatment plan. Jul, Bilateral impacted cerumen (ICD-10 - H61.23) Ear lavage in office today. Discussed proper ear hygiene. Avoid putting anything inside the ear such as Q-tips, etc. Patient may use OTC wax softeners (Debrox) as directed as needed. Follow up with UC or PCP as needed. Immediate eval for ear drainage, pain, loss of hearing, ringing, dizziness, fever, redness, swelling, and pain behind the ear, headache, neck pain, or any other new or concerning symptoms. Patient verbalizes understanding and is agreeable to treatment plan. [facility] Other 11-15-2023 Evaluation note* Encounter Date Diagnosis Assessment Notes Treatment Notes Treatment Clinical Notes Jun, Acute vaginitis (ICD-10 - N76.0) [facility] Other 11-10-2023 Evaluation note* Encounter Date Diagnosis Assessment Notes Treatment Notes Treatment Clinical Notes Jun, Acute non-recurrent frontal sinusitis (ICD-10 - J01.10) Discussed diagnosis with patient. Instructed to take ATB as directed and complete entire course even if asymptomatic. OTC Tylenol or ibuprofen for discomfort. Saline nasal spray prn congestion. Flonase nasal spray prn congestion. OTC cough medication prn cough. Push fluids and rest. Cool mist humidier. Immediate evaluation if worsening symptoms. Patient to notify office should symptoms persist or not improve. Advised Augmentin may cause diarrhea - advised to use OTC Probiotics, or eat 2 Activia yogurt per day to help maintain normal GI michael. Pt verbalizes understanding and agrees with tx plan. [facility] Other 09-20-2023 Evaluation note* Encounter Date Diagnosis Assessment Notes Treatment Notes Treatment Clinical Notes Apr, Gluten intolerance (ICD-10 - K90.0) [facility] Other 09-06-2023 Hospital Discharge instructions Patient Education 04/26/2023 13:55:04 Urinary Tract Infection, Adult, Tefw-nj-Iafg Urinary Tract Infection, Adult A urinary tract infection (UTI) is an infection of any part of the urinary tract. The urinary tractincludes: The kidneys. The ureters. The bladder. The urethra. These organs make, store, and get rid of pee (urine) in the body. What are the causes? This infection is caused by germs (bacteria) in your genital area. These germs grow and cause swelling (inflammation) of your urinary tract. What increases the risk? The following factors may make you more likely to develop this condition: Using a small, thin tube (catheter) to drain pee. Not being able to control when you pee or poop (incontinence). Being female. If you are female, these things can increase the risk: ?Using these methods to prevent : ?A medicine that kills sperm (spermicide). ?A device that blocks sperm (diaphragm). ?Having low levels of a female hormone (estrogen). ?Being . You are more likely to develop this condition if: You have genes that add to your risk. You are sexually active. You take antibiotic medicines. You have trouble peeing because of: ?A prostate that is bigger than normal, if you are male. ?A blockage in the part of your body that drains pee from the bladder. ?A kidney stone. ?A nerve condition that affects your bladder. ?Not getting enough to drink. ?Not peeing often enough. You have other conditions, such as: ?Diabetes. ?A weak disease-fighting system (immune system). ?Sickle cell disease. ?Gout. ?Injury of the spine. What are the signs or symptoms? Symptoms of this condition include: Needing to pee right away. Peeing small amounts often. Pain or burning when peeing. Blood in the pee. Pee that smells bad or not like normal. Trouble peeing. Pee that is cloudy. Fluid coming from the vagina, if you are female. Pain in the belly or lower back. Other symptoms include: Vomiting. Not feeling hungry. Feeling mixed up (confused). This may be the first symptom in older adults. Being tired and grouchy (irritable). A fever. Watery poop (diarrhea). How is this treated? Taking antibiotic medicine. Taking other medicines. Drinking enough water. In some cases, you may need to see a specialist. Follow these instructions at home: Medicines Take xhhe-ltx-demceah and prescription medicines only as told by your doctor. If you were prescribed an antibiotic medicine, take it as told by your doctor. Do not stop taking it even if you start to feel better. General instructions Make sure you: ?Pee until your bladder is empty. ?Do not hold pee for a long time. ?Empty your bladder after sex. ?Wipe from front to back after peeing or pooping if you are a female. Use each tissue one time whenyou wipe. Drink enough fluid to keep your pee pale yellow. Keep all follow-up visits. Contact a doctor if: You do not get better after 1 2 days. Your symptoms go away and then come back. Get help right away if: You have very bad back pain. You have very bad pain in your lower belly. You have a fever. You have chills. You feeling like you will vomit or you vomit. Summary A urinary tract infection (UTI) is an infection of any part of the urinary tract. This condition is caused by germs in your genital area. There are many risk factors for a UTI. Treatment includes antibiotic medicines. Drink enough fluid to keep your pee pale yellow. This information is not intended to replace advice given to you by your health care provider. Make sure you discuss any questions you have with your health care provider. Document Revised: 03/19/2021 Document Reviewed: 03/19/2021 [employer] Patient Education 2022 [employer]. Follow Up Care 03/30/2022 13:19:45 With:FREYA JOHNSON PA-C, URL Address: [address] [place] [address] When:Within 1 Year(s) [facility] 08-04-2023 Evaluation note* Encounter Date Diagnosis Assessment Notes Treatment Notes Treatment Clinical Notes Mar, Change in bowel habits (ICD-10 - R19.4) Mar, Fecal incontinence (ICD-10 - R15.9) Mar, Bloating (ICD-10 - R14.0) Mar, Diarrhea, unspecified (ICD-10 - R19.7) [facility] Other 01-20-2023 Evaluation note* Encounter Date Diagnosis Assessment Notes Treatment Notes Treatment Clinical Notes Aug, Left medial knee pain (ICD-10 - M25.562) Discussed options. Handwrote order for pt. Gave exercises for stretching at home. Will call if no improvment for a potential ortho referral. Discussed NSAIDs and heat for improvement [facility] Other 04-20-2022 Hospital Discharge instructions Patient Education 12/08/2021 10:45:04 Overactive Bladder, Adult Overactive Bladder, Adult Overactive bladder refers to a condition in which a person has a sudden need to pass urine. The person may leak urine if he or she cannot get to the bathroom fast enough (urinary incontinence). A person with this condition may also wake up several times in the night to go to the bathroom. Overactive bladder is associated with poor nerve signals between your bladder and your brain. Your bladder may get the signal to empty before it is full. You may also have very sensitive muscles thatmake your bladder squeeze too soon. These symptoms might interfere with daily work or social activities. What are the causes? This condition may be associated with or caused by: Urinary tract infection. Infection of nearby tissues, such as the prostate. Prostate enlargement. Surgery on the uterus or urethra. Bladder stones, inflammation, or tumors. Drinking too much caffeine or alcohol. Certain medicines, especially medicines that get rid of extra fluid in the body (diuretics). Muscle or nerve weakness, especially from: ?A spinal cord injury. ?Stroke. ?Multiple sclerosis. ?Parkinson's disease. Diabetes. Constipation. What increases the risk? You may be at greater risk for overactive bladder if you: Are an older adult. Smoke. Are going through menopause. Have prostate problems. Have a neurological disease, such as stroke, dementia, Parkinson's disease, or multiple sclerosis (MS). Eat or drink things that irritate the bladder. These include alcohol, spicy food, and caffeine. Are overweight or obese. What are the signs or symptoms? Symptoms of this condition include: Sudden, strong urge to urinate. Leaking urine. Urinating 8 or more times a day. Waking up to urinate 2 or more times a night. How is this diagnosed? Your health care provider may suspect overactive bladder based on your symptoms. He or she will diagnose this condition by: A physical exam and medical history. Blood or urine tests. You might need bladder or urine tests to help determine what is causing your overactive bladder. You might also need to see a health care provider who specializes in urinary tract problems (urologist). How is this treated? Treatment for overactive bladder depends on the cause of your condition and whether it is mild or severe. You can also make lifestyle changes at home. Options include: Bladder training. This may include: ?Learning to control the urge to urinate by following a schedule that directs you to urinate at regular intervals (timed voiding). ?Doing Kegel exercises to strengthen your pelvic floor muscles, which support your bladder. Toning these muscles can help you control urination, even if your bladder muscles are overactive. Special devices. This may include: ?Biofeedback, which uses sensors to help you become aware of your body's signals. ?Electrical stimulation, which uses electrodes placed inside the body (implanted) or outside the body. These electrodes send gentle pulses of electricity to strengthen the nerves or muscles that control the bladder. ?Women may use a plastic device that fits into the vagina and supports the bladder (pessary). Medicines. ?Antibiotics to treat bladder infection. ?Antispasmodics to stop the bladder from releasing urine at the wrong time. ?Tricyclic antidepressants to relax bladder muscles. ?Injections of botulinum toxin type A directly into the bladder tissue to relax bladder muscles. Lifestyle changes. This may include: ?Weight loss. Talk to your health care provider about weight loss methods that would work best for you. ?Diet changes. This may include reducing how much alcohol and caffeine you consume, or drinking fluids at different times of the day. ?Not smoking. Do not use any products that contain nicotine or tobacco, such as cigarettes and e-cigarettes. If you need help quitting, ask your health care provider. Surgery. ?A device may be implanted to help manage the nerve signals that control urination. ?An electrode may be implanted to stimulate electrical signals in the bladder. ?A procedure may be done to change the shape of the bladder. This is done only in very severe cases. Follow these instructions at home: Lifestyle Make any diet or lifestyle changes that are recommended by your health care provider. These may include: ?Drinking less fluid or drinking fluids at different times of the day. ?Cutting down on caffeine or alcohol. ?Doing Kegel exercises. ?Losing weight if needed. ?Eating a healthy and balanced diet to prevent constipation. This may include: ?Eating foods that are high in fiber, such as fresh fruits and vegetables, whole grains, and beans. ?Limiting foods that are high in fat and processed sugars, such as fried and sweet foods. General instructions Take zjzz-scw-jjmapdw and prescription medicines only as told by your health care provider. If you were prescribed an antibiotic medicine, take it as told by your health care provider. Do notstop taking the antibiotic even if you start to feel better. Use any implants or pessary as told by your health care provider. If needed, wear pads to absorb urine leakage. Keep a journal or log to track how much and when you drink and when you feel the need to urinate. This will help your health care provider monitor your condition. Keep all follow-up visits as told by your health care provider. This is important. Contact a health care provider if: You have a fever. Your symptoms do not get better with treatment. Your pain and discomfort get worse. You have more frequent urges to urinate. Get help right away if: You are not able to control your bladder. Summary Overactive bladder refers to a condition in which a person has a sudden need to pass urine. Several conditions may lead to an overactive bladder. Treatment for overactive bladder depends on the cause and severity of your condition. Follow your health care provider's instructions about lifestyle changes, doing Kegel exercises, keeping a journal, and taking medicines. This information is not intended to replace advice given to you by your health care provider. Make sure you discuss any questions you have with your health care provider. Document Released: 06/03/2010 Document Revised: 11/28/2019 Document Reviewed: 08/23/2018 [employer] Patient Education 2020 [employer]. Follow Up Care 11/11/2021 12:54:29 With:FREYA JOHNSON PA-C, URL Address: [address] [place] [address] When:3 months [facility] Evaluation note* Encounter Date Diagnosis Assessment Notes Treatment Notes Treatment Clinical Notes Oct, Irritable bowel syndrome with both constipation and diarrhea (ICD-10 - K58.2) Oct, Exocrine pancreatic insufficiency (ICD-10 - K86.81) SAMPLES OF ZENPEP GIVEN TO PT PT TO REPORT PROGRESS Oct, Fecal incontinence (ICD-10 - R15.9) Oct, GERD without esophagitis (ICD-10 - K21.9) [facility] Other 02-27-2022 Evaluation note* Encounter Date Diagnosis Assessment Notes Treatment Notes Treatment Clinical Notes Sep, Dysuria (ICD-10 - R30.0) Sep, Acute cystitis with hematuria (ICD-10 - N30.01) Discussed diagnosis and dipstick findings with patient. Will treat patient for UTI. Instructed patient to take antibiotic as prescribed, take with food, complete entire course of therapy even if feeling better. Allergies and recent antibiotic use were reviewed with patient. Patient was recently on Bactrim, Augmentin, and Doxycycline in the last 6 months per pharmacy. Will send in rx of Macrobid. Advised patient culture was sent today and we will call with her results in 2-5 days. Patient instructed to push fluids. May take Pyridium for discomfort as prescribed. Patient symptoms should improve in the next 48 hours, if symptoms persist follow up with PCP or UC. Immediate eval by ER if back or flank pain, fever, chills, N/V, or any other concerning symptoms arise. Patient verbalizes understanding and is agreeable to treatment plan Sep, Other Urinary tract infection (UTI) home care material was printed [facility] Other 09-29-2020 NoteAccession #: [id number] Date of Procedure: 05/19/2020 Pathologist: STEF GREEN MD Date Reported: 05/26/2020 Date Received: 05/19/2020 Submitting Physician: FELY DAMON CNM CNP FINAL CYTOLOGICAL INTERPRETATION Squamous and/or Glandular Abnormality A. THINPREP PAP VAGINAL: Specimen Adequacy: SATISFACTORY FOR EVALUATION. General Categorization: EPITHELIAL CELL ABNORMALITY - SQUAMOUS CELL. See Interpretation. Descriptive Interpretation: ATYPICAL SQUAMOUS CELLS OF UNDETERMINED SIGNIFICANCE (ASC-US) - VAGINA. HIGH RISK HPV TEST RESULT: HPV GENOTYPE 16 POSITIVE HPV GENOTYPE 18 NEGATIVE HPV GENOTYPE OTHER POSITIVE Reference Range: Negative Testing for high-risk (HR) type of human papilloma virus (HPV) is performed by the Med yesenia HPV Test. The yesenia HPV Test is a qualitative polymerase chain reaction that amplifies DNA of HPV16, HPV18 and 12 other high-risk HPV types (31, 33, 35, 39, 45, 51, 52, 56, 58, 59, 66, and 68) associated with cervical cancer and its precursor lesions. A positive result indicates the presence of HPV DNA due to one or more of the 14 genotypes: 16, 18, 31, 33, 35, 39, 45, 51, 52, 56, 58, 59, 66, and 68. Negative results indicate HPV DNA concentrations are undetectable or below the pre-set threshold for detection. False negative results may be associated with unoptimized sampling. A negative HR HPV result does not exclude the possibility of future cytologic HSIL or underlying CIN2-3 or cancer. This test is approved for cervical specimens by the US Food and Drug Administration. Results of this test should be interpreted in conjunction with the patient?s Pap test results. Please refer to ASCCP current guidelines for the use of HPV DNA testing, result interpretation, and patient management. The performance of this test was verified by the [facility] Laboratory at [facility]. The lab is certified under the Clinical Laboratory Amendments of 1988 (CLIA 88) as qualified to perform high complexity clinical laboratory testing. This specimen has been analyzed by the [employer] Option USAPrep Imaging System ([employer] an automated imaging and review system, which assists the laboratory in evaluating cells on ThinPrep Pap tests. Following automated imaging, selected vann from every slide were reviewed by a airplane fueler and/or pathologist. Electronically Signed Out By STEF GREEN MD/CWM/DDH By the signature on this report, the individual or group listed as making the Final Interpretation/Diagnosis certifies that they have reviewed this case. Educational Note: Cervical cytology is a screening procedure primarily for squamous cancers and precursors and has associated false-negative and false-positive results as evidenced by published data. Your patient?s test should be interpreted in this context, together with patient?s history and clinical findings. Regular sampling and follow-up of unexplained clinical signs and symptoms are recommended to minimize false negative results. Clinical History Date of Last Menstrual Period: HYSTERECTOMY Other Clinical Conditions: COTEST HPV(Genotype) except for ASC-H, HSIL, Carcinoma - Include HPV Genotype testing Annual Z12.72, Z12.4 Source of Specimen A: THINPREP PAP VAGINAL [facility] Department of Pathology [id number] [address]Comment on above:Performed By: #### C #### [facility] Cytology [id number] [facility] [id number] Miscellaneous Notes* Telephone Encounter - Bridgette Owens RN - 12/12/2013 10:19 AM EDT .Contacted patient with MD's message. Verbalized understanding. No further questions. * Telephone Encounter - Salome León Ma - 12/11/2013 10:02 AM EDT Left message for return call. * Telephone Encounter - Larry Allen - 12/10/2013 3:54 PM EDT Please tell patient that Vitamin D was low and needs to be replaced. I have placed an order for Vitamin D3 50,000 unit caps. Take 1 cap weekly for 10 weeks. Then, take qesx-bqi-mnleufv Vitamin D3 supplements of at least 1,000 units daily. The following approved medication requests have been transmitted electronically. Signed Prescriptions Disp Refills cholecalciferol, Vitamin D3, 50,000 unit cap capsule 10 capsule 0 Si cap per week x 10 weeks. ELADIO: No Authorizing Provider: LARRY ALLEN, documented in this encounterCherrington HospitalEvaluation + Plan note Future Appointments Appointment Date:03/16/2022 08:30:00 AM Scheduled Provider:FREYA JOHNSON PA-C Location:[facility] Appointment Type:URO Office Visit [facility] evaluation + Plan note Future Appointments Appointment Date:04/30/2024 10:00:00 AM Scheduled Provider:FREYA JOHNSON PA-C Location:[facility] Appointment Type:URO Office Visit [facility] evaluation noteNo Play With Pictures / [employer] Other Hisnknt general Narrative - Reported* Type Description Date Medical History Hypothyroidism Medical History insomnia Medical History acid reflux Surgical History tonsillectomy Surgical History D&C Surgical History hysterectomy Surgical History Foot Surgery right Hospitalization History see above [facility] Other Hisorha general Narrative - Reported* Type Description Date Medical History Dyspnea Medical History Fatigue Medical History Abdominal bloating Medical History Abdominal pain, RUQ Medical History IBS (irritable bowel syndrome) Medical History Hypothyroidism (acquired) Medical History Acid reflux Surgical History tonsillectomy Surgical History D&C Surgical History hysterectomy Surgical History Foot Surgery right Hospitalization History SEE SURGICAL [facility] Other Hispqpr general Narrative - Reported* Type Description Date Medical History Dyspnea Medical History Fatigue Medical History Abdominal bloating Medical History Abdominal pain, RUQ Medical History IBS (irritable bowel syndrome) Medical History Hypothyroidism (acquired) Medical History Acid reflux Medical History umbilical hernia Medical History GERD without esophagitis Surgical History tonsillectomy Surgical History D&C Surgical History hysterectomy Surgical History Foot Surgery right Hospitalization History SEE SURGICAL HX [facility] Other Hiszptx general Narrative - Reported* Type Description Date Medical History Dyspnea Medical History Fatigue Medical History Abdominal bloating Medical History Abdominal pain, RUQ Medical History IBS (irritable bowel syndrome) Medical History Hypothyroidism (acquired) Medical History Acid reflux Medical History umbilical hernia Medical History GERD without esophagitis Surgical History tonsillectomy Surgical History D&C Surgical History hysterectomy Surgical History Foot Surgery right Surgical History Umbilical/Hiatial Hernia Repair 07/17/23 Hospitalization History SEE SURGICAL HX [employer] Other Hospital course Narrative No data available for this section [facility] [employer] progress note No data available for this section [facility] [place] reason for visit Narrativeknee troubles, [facility] [place] Other Summary Purpose Family History uncle Name Dates Details Family history of malignant neoplasm of colon(V16.0, Z80.0) Status:Active Grandparent Name Dates Details Family history of myocardial infarction(V17.3, Z82.49) Status:Active Mother Name Dates Details No pertinent family history( V49.89, Z78.9) Status:Active Father Name Dates Details No pertinent family history( V49.89, Z78.9) Status:Active Sister Name Dates Details Family history of malignant neoplasm of colon(V16.0, Z80.0) Status:Active uncle Name Dates Details Family history of malignant neoplasm of colon(V16.0, Z80.0) Status:Active Grandparent Name Dates Details Family history of myocardial infarction(V17.3, Z82.49) Status:Active Mother Name Dates Details No pertinent family history( V49.89, Z78.9) Status:Active Father Name Dates Details No pertinent family history( V49.89, Z78.9) Status:Active Sister Name Dates Details Family history of malignant neoplasm of colon(V16.0, Z80.0) Status:Active Grandparent Name Dates Details Family history of myocardial infarction(V17.3, Z82.49) Status:Active Mother Name Dates Details No pertinent family history( V49.89, Z78.9) Status:Active Father Name Dates Details No pertinent family history( V49.89, Z78.9) Status:Active Sister Name Dates Details Family history of malignant neoplasm of colon(V16.0, Z80.0) Status:Active Grandparent Name Dates Details Family history of myocardial infarction(V17.3, Z82.49) Status:Active Mother Name Dates Details No pertinent family history( V49.89, Z78.9) Status:Active Father Name Dates Details No pertinent family history( V49.89, Z78.9) Status:Active Sister Name Dates Details Family history of malignant neoplasm of colon(V16.0, Z80.0) Status:Active Grandparent Name Dates Details Family history of myocardial infarction(V17.3, Z82.49) Status:Active Mother Name Dates Details No pertinent family history( V49.89, Z78.9) Status:Active Father Name Dates Details No pertinent family history( V49.89, Z78.9) Status:Active Sister Name Dates Details Family history of malignant neoplasm of colon(V16.0, Z80.0) Status:Active Grandparent Name Dates Details Family history of myocardial infarction(V17.3, Z82.49) Status:Active Mother Name Dates Details No pertinent family history( V49.89, Z78.9) Status:Active Father Name Dates Details No pertinent family history( V49.89, Z78.9) Status:Active Sister Name Dates Details Family history of malignant neoplasm of colon(V16.0, Z80.0) Status:Active uncle Name Dates Details Family history of malignant neoplasm of colon(V16.0, Z80.0) Status:Active Grandparent Name Dates Details Family history of myocardial infarction(V17.3, Z82.49) Status:Active Mother Name Dates Details No pertinent family history( V49.89, Z78.9) Status:Active Father Name Dates Details No pertinent family history( V49.89, Z78.9) Status:Active Sister Name Dates Details Family history of malignant neoplasm of colon(V16.0, Z80.0) Status:Active Unknown Family Member Name Dates Details Family history of myocardial infarction: Grandparent(V17.3, Z82.49) Status:Active No pertinent family history: Mother, Father(V49.89, Z78.9) Status:Active Family history of malignant neoplasm of colon: Sister, Maternal Uncle(V16.0, Z80.0) Status:Active Unknown Family Member Name Dates Details Family history of myocardial infarction: Grandparent(V17.3, Z82.49) Status:Active No pertinent family history: Mother, Father(V49.89, Z78.9) Status:Active Family history of malignant neoplasm of colon: Sister, Maternal Uncle(V16.0, Z80.0) Status:Active Advance Directives No Advanced Directives Records FoundNo Advanced Directives Records FoundNo Advanced Directives Records FoundNo Advanced Directives Records FoundNo Advanced Directives Records FoundNo Advanced Directives Records FoundNo Advanced Directives Records FoundNo Advanced Directives Records FoundNo Advanced Directives Records Found Additional Source Comments INFORMATION SOURCE (unrecogn ized section and content) DATE CREATED AUTHOR 02/14/2018 [facility] DATE CREATED AUTHOR AUTHOR'S ORGANIZ ATION 01/10/2019 [facility] DATE CREATED AUTHOR AUTHOR'S ORGANIZ ATION 01/17/2019 [facility] DATE CREATED AUTHOR AUTHOR'S ORGANIZ ATION 12/16/2020 [facility] DATE CREATED AUTHOR AUTHOR'S ORGANIZ ATION 12/16/2020 [employer] DATE CREATED AUTHOR AUTHOR'S ORGANIZ ATION 01/12/2021 [facility] DATE CREATED AUTHOR AUTHOR'S ORGANIZ ATION 01/27/2023 [facility] DATE CREATED AUTHOR AUTHOR'S ORGANIZ ATION 03/23/2023 [facility] DATE CREATED AUTHOR AUTHOR'S ORGANIZ ATION 04/27/2023 [facility] Source Comments (unrecognize d section and content) In the event this informatio n is protected by the Federal Confidentiality of Alcohol and Drug Abuse Patient Records regulations: The Federal rules restrict any use of the information to criminally investigate or prosecute any alcohol or drug abuse patient.[facility] Reason for Visit (unrecogniz ed section and content) Reason Onset Date Comments Results 12/10/2013 Patient Care team informatio n (unrecognized section and content) Personnel Name: XIOMARA AARON MD Address: Address: [address] [place] [address] FOR RECORDS PERTAINING TO PATIENTS WHO ARE OR HAVE BEEN ENROLLED IN A CHEMICAL DEPENDENCY/SUBSTANCEABUSE PROGRAM, SOME INFORMATION MAY BE OMITTED. This clinical summary was aggregated from multiple sources. Caution should be exercised in using it in the provision of clinical care. This summary normalizes information from multiple sources, and as a consequence, information in this document may materially change the coding, format and clinical context of patient data. In addition, data may be omitted in some cases. CLINICAL DECISIONS SHOULD BE BASED ON THE PRIMARY CLINICAL RECORDS. [facility]. provides no warranty or guarantee of the accuracy or completeness of information in this document.
[2023-11-13 10:07] LABS: Age Gdln ACOG Testing Note (.); HPV Aptima Negative (Negative); IGP, Aptima HPV, rfx 16/18,45 Note (.)
== END 2023-11-08 20:47 | disposition home or self-care (01) ==
LOC: LAB 20:46
PROVIDERS: PCP Family Medicine; Visit Provider Obstetrics & Gynecology
DX: Z01.419 Encounter for gynecological examination (general) (routine) without abnormal findings (principal)
CPT/HCPCS: 87624; G0145

== ENCOUNTER 2024-01-12 07:56 | Outpatient (OUT) | payer BC, SELFPAY ==
--- NOTE | 2024-01-12 08:00 | XR_ITS ---
[address] [address] Patient Name: NICK WRIGHT MRN: [id number] date: 1970 Sex: F Assigned Patient Location: [facility] Current Patient Location: [facility] Accession/Order Number: [id number] Exam Date: 01/12/2024 08:20 Report Date: 01/12/2024 09:23 At the request of: ANA INGRAM Procedure: XR DEXA axial skeleton EXAMINATION: XR DEXA axial skeleton HISTORY: Postmenopausal state Z78.0 COMPARISON: No relevant comparison available. TECHNIQUE: Dual-energy X-ray absorptiometry (DXA) was performed. FINDINGS: SPINE ANALYSIS: Average bone mineral density is 1.199 g/cm2. T-score (standard deviation relative to young adult mean): 0.0 . +2.2% change since prior study. HIP ANALYSIS: Lowest bone mineral density is within the right femoral trochanter, 0.693 g/cm2. T-score (standard deviation relative to young adult mean): -1.4 . +1.7% change since prior study. XR/XR DEXA axial skeleton IMPRESSION: World [employer] Organization Classification: Osteopenia - Moderate Fracture Risk FRAX: Unable to calculate. Electronically authenticated by: JOSE RODRIGUEZ Date: 01/12/2024 09:23
--- NOTE | 2024-01-12 08:01 | MM_ITS ---
Patient Name: NICK WRIGHT MR#: [id number] : 1970 Exam Date: 01/12/2024 Ordering Doctor: FLO Suh . RADIOLOGY REPORT PROCEDURE: MM TOMOSYNTHESIS SCREENING BI COMPARISON: MG MAMM SCREEN 3D SERGEI CAD, 01/09/2023. MG MAMM SCREEN 3D SERGEI CAD, 01/05/2022. MG MAMM SCREEN 3D SERGEI CAD, 01/04/2021. MG MAMM SCREEN 3D SERGEI CAD, 01/03/2020. INDICATIONS: Screening Z12.31 Calculator Name NCI Breast Cancer Risk Assessment Tool 5 Year Breast Cancer Risk 1.00% Lifetime Breast Cancer Risk 7.50% Personal Breast Cancer No Personal Ovarian Cancer No Treatments None Family Cancers None LOCATION: [facility] BREAST COMPOSITION: The breasts are heterogeneously dense,which may obscure small masses. FINDINGS: DIAGNOSTIC CATEGORY 2--BENIGN FINDING: RIGHT BREAST: No significant suspicious finding. Scattered benign-appearing calcifications are present. No significant change has occurred. LEFT BREAST: No significant suspicious finding. Scattered benign-appearing calcifications are present. No significant change has occurred. RECOMMENDATIONS: ROUTINE MAMMOGRAM AND CLINICAL EVALUATION IN 12 MONTHS. PLEASE NOTE: A NORMAL MAMMOGRAM DOES NOT EXCLUDE THE POSSIBILITY OF BREAST CANCER. A CLINICALLY SUSPICIOUS PALPABLE LUMP SHOULD BE BIOPSIED. Dictated by: Olvin Easley M.D. on 01/16/2024 at 11:21 Approved by: Olvin Easley M.D. on 01/16/2024 at 11:28
--- OUTSIDE RECORDS SUMMARY | 2024-01-12 08:03 | XMS_ITS | CCD ---
Author Organization [facility] Care Team Providers Care Hearing Specialist Name Role Phone Saba Jenkins Unavailable Unavailable Furness, Yan T Unavailable Unavailable London, Ba U Unavailable Unavailable Wood, Javad Unavailable Unavailable Fried, Fely Unavailable Unavailable Furness, Yan Unavailable Unavailable Clear CreekMelvin martin Unavailable Unavailable Furness, Yan T Primary Care Provider Pending Provider Unavailable Unavailable Unavailable Unavailable Unavailable Unavailable XIOMARA AARON Primary Care Physician Blaire Collier Unavailable Shan Kerr Unavailable Xiomara Aaron Unavailable ZURI ., DR COLEY Admitting Unavailable ZURI ., DR COLEY Consulting Unavailable ZURI ., DR COLEY Attending Unavailable GALEN, DR XIOMARA Hunter Primary Care Unavailable GALEN, DR XIOMARA Hunter Primary Care Unavailable DR XIOMARA AARON Consulting Unavailable GALEN, DR XIOMARA Hunter Attending Unavailable GALEN, DR XIOMARA Hunter Admitting Unavailable ASAAD, IMAD Admitting Unavailable ASAAD, IMAD Consulting Unavailable ASAAD, IMAD Attending Unavailable GALEN, DR XIOMARA Hunter Primary Care Unavailable ASAAD, IMAD Admitting Unavailable ASAAD, IMAD Attending Unavailable MICHAEL, DR JOSE Martins Consulting Unavailable DR XIOMARA AARON Primary Care Unavailable ASAAD, IMAD Consulting Unavailable Asaad, Imad Unavailable Xiomara Aaron Primary Care Unavailable Asaad, Imad Attending Unavailable Asaad, Imad Admitting Unavailable FREYA JOHNSON Attending Unavailable FREYA JOHNSON Attending Unavailable Freya Ponce Unavailable ANA INGRAM Attending Unavailable DON ABRAHAM Referring Unavailable XIOMARA AARON Primary Care Unavailable Allergies Allergy Classification Reported Allergen(s) Allergy Type Date of Onset Reaction(s) Facility Macrolides (antibiotic) (3 sources) Azithromycin; Translations: [erythromycin] Drug Allergy 07-30-20 12 Vomiting [facility] (20 sources) Erythromycin; Translations: [Erythromycin] Drug Allergy 02-09-20 23 Vomitus (substance) [facility] Work Phone: (1 source) Erythromycin Drug Allergy 07-02-20 20 [facility] (1 source) Erythromycin Drug Allergy 09-21-19 [facility] (6 sources) Allergies Reconciled Propensity to adverse reactions Unknown [facility] Other Medications Current Medications Medication Drug Class(es) Dates Sig (Normalized) Sig (Original) [id number] actuat albuterol 0.09 mg/actuat metered dose [...] tablet by mouth every twenty-four hours Biotin 39220 MCG 1 tablet Orally Once a day Active take 1 tablet by chau th every twenty-four hours Biotin 39858 MCG 1 tablet Orally Once a day Active take 1 tablet by mouth once emy y Biotin 87351 MCG 1 tablet Orally Once a day [...] Start: 07-24-2023 take 1 tablet by chau th every twelve hours Doxycycline Monohydrate 100 MG 1 tablet Orally Twice a day for 10 days Jul, Active estradiol 0.01 mg vaginal insert (20 sources) Estrogen Start: 12-08-2021 Yuvafem 10 mcg vaginal tablet mcg tab(s), Vaginal, Once a day (at bedtime), Refills(s) 0 Start Date: 12/08/21 Status: Ordered Start: 01-25-2021 take 1 tablet by chau th once daily Estradiol 2 MG Oral Tablet TAKE 1 TABLET DAILY. Quantity: 30 Refills: 1 Ordered: 25-Jan-2021 Chance Rao MD Start : 25-Jan-2021 Active Start: 09-08-2020 Estradiol 10 M CG Vaginal Tablet 1 PV QHS x 14 days then 1 PV twice weekly Quantity: 20 Refills: 5 Ordered: 08-Sep-2020 Fried SUPERINTENDENT SANITATION-CNM, SUPERINTENDENT SANITATION-DIGITAL RESEARCH ANALYST, Fely Start : 08-Sep-2020 Active Vagifem 10 [...] intercourse, # 30 cap(s), Refills(s) 3, Pharmacy: [facility]/pharmacy #[id number], 170, cm, 04/26/23 13:36:00 EDT, Height/Length Dosing, 69.1, kg, 04/26/23 13:36:00 EDT, Weight Dosing Start Date: 04/26/23 Status: Ordered Start: 10-17-2021 take 1 capsule by mo uth every twelve hours Macrobid 100 MG 1 [...] Daily, # 90 tab(s), Refills(s) 3, Pharmacy: [facility]/pharmacy #[id number], 170, cm, 04/26/23 13:36:00 EDT, Height/Length Dosing, 69.1, kg, 04/26/23 13:36:00 EDT, Weight Dosing Start Date: 04/26/23 Status: Ordered Start: 12-08-2021 take 1 tablet by chau th once daily oxybutynin 5 mg ER Tab 5 mg = 1 tab(s), Oral, Daily, # 90 tab(s), Refills(s) 3, Pharmacy: [facility]/pharmacy #[id number], 170, cm, 12/08/21 9:43:00 EDT, Height/Length Dosing, 69.1, kg, 12/08/21 9:43:00 EDT, Weight Dosing Start Date: 12/08/21 Status: Ordered Start: 04-23-2020 take 1 tablet by chau th once daily Oxybutynin Chloride ER 5 MG Oral Tablet Extended Release 24 Hour Take 1 tablet daily Quantity: 90 Refills: 3 Ordered: 23-Apr-2020 Yan Winslow MD Start : 23-Apr-2020 Active take 1 tablet by chau th every twenty-four hours oxyBUTYnin Chloride 5 MG [...] Start: 11-19-2021 take 1 tablet by chau th three times daily Sucralfate 1 GM 1 [...] by chau th daily at bedtime. amylase 526642 unt / lipase 99751 unt / protease 472178 unt delayed release oral capsule (8 sources) Start: 11-01-2021 take 1 capsule by mouth every eight hours Zenpep [id number] UNIT 1 CAPSULE Orally THREE TIMES A [...] per week x 10 weeks. estrogens, conjugated (detention) 1.25 mg oral tablet (3 sources) Estrogen Start: 05-19-2020 take 1 tablet by mouth once daily Premarin 1.25 MG Oral Tablet TAKE 1 TABLET BY MOUTH EVERY DAY Quantity: 90 Refills: 3 Ordered: 13-Aug-2020 Melvin Montilla DO Start : 19-May-2020 Active ESTROGENS, CONJU GATED [...] tablet (3 sources) Histamine-2 Receptor Antagonist Start: 020 take 1 tablet by mouth twice daily [...] above: Take 1 tablet by chau th once daily. nortriptyline 25 mg oral capsule (5 sources) Tricyclic Antidepressant Start: take 1 capsule by mouth at bedtime [...] Active Olopatadine HCl Active polyethylene glycol 3350 710174 mg / potassium chloride 2970 mg / sodium bicarbonate 6740 mg / sodium chloride 5860 mg / sodium sulfate 64057 mg powder for oral solution (3 sources) [...] source) Acute vaginitis Episodic Malaise and fatigue (10 sources) Fatigue; Translations: [Other malaise and fatigue] Onset: 4 Episodic Menopausal disorders (9 sources) Menopausal symptom; Translations: [Menopausal syndrome] Chronic Nausea and vomiting (3 sources) Nausea; Translations: [Nausea alone] Episodic Nutritional deficiencies (10 sources) Vitamin D deficiency; Translations: [Unspecified vitamin D deficiency] Onset: 4 Chronic Other circulatory disease (7 sources) Acroparesthesia; [...] (HPV) DNA test positive] Episodic Thyroid disorders (12 sources) Hypothyroidism; Translations: [Unspecified acquired hypothyroidism] Onset: 4 12-03-2021 Chronic Unclassified (6 sources) Acute candidiasis [...] Test Name Value Interpretation Reference Range Facility Cortisol [Mass/Vol]on 2023 CORTISOL 9.4 ug/dL Normal [facility] Comment on above: Result Comment: Due to the diurnal variation of cortisol levels in normal subjects, all cortisol measurements should be referenced to the time of day of sample collection. AM Cortisol Age>=6 6.7-22.4 ug/dL PM Cortisol Age>=6 <10 ug/dL Performed By: #### 2 143-6 #### [facility] ([id number]) [address] [place] [address], [address] [place] [address] THYROGLOBULIN ABon 4 Thyroglobulin Ab Qn [IU]/mL Normal <4.0 [facility] Comment on above: Performed By: #### 3 5365-6, 8098-6, 8099-4 #### [facility] ([id number]) [address], [address] [place] [address] THYROPEROXIDASE ABon 024 TPO Ab Qn [IU]/mL Normal <10 [facility] Comment on above: Performed By: #### 3 5365-6, 8098-6, 8099-4 #### [facility] ([id number]) [address], [address] [place] [address] Vitamin D+Metabolites [Mass/ Vol]on 12-25-2023 VITAMIN D 25 HYD TOT 28.2 ng/mL Low 30-100 [facility] Comment on above: Result Comment: Vitamin D status 25 [place] Vitamin D Deficiency <20 ng/mL Insufficiency 20-29 ng/mL Sufficiency 30-100 ng/mL Toxicity >100 ng/mL NOTE: A pediatric reference range has not been established by the mechanical integrity engineer of this kit. The [place] [employer] recommends a Vitamin D level of = or >20ng/mL in infants and children. Performed By: #### 3 5365-6, 8098-6, 8099-4 #### [facility] ([id number]) [address], [address] [place] [address] Screenson 04-27-2023 Screens [id number] Normal [facility] Ambulatory Visit Summaryon 0 04-26-2023 Ambulatory Visit Summary AMYJAAJPATTY :1970 Visit Date:04/26/2023 Ambulatory Visit Instructions Your Diagnosis Frequent UTI OAB (overactive bladder) Urge incontinence Fecal incontinence Your Care Team Attending Physician - ALEX DANIEL, FREYA Hunter Primary Care Physician - XIOMARA AARON MD [...] Follow-Up Appointments Monday 10:00 AM EDT With: ALEX DANIEL, FREYA Hunter Where: [facility] Patient Educationon 04-26-20 Patient Education Obstetrics and [...] these instructions at home: Medicines ? Take jqqh-erk-yavkdsl and prescription medicines only as told by [...] provider. Document Revised: 03/19/2021 Document Reviewed: 03/19/2021 [employer] Patient Education ? 2022 Med Access. [employer] [facility] Urology Office/Clinic Noteon 04-26-2023 Urology Office/Clinic Note Chief Complaint 1yr HPI Staff 1yr DX: Frequent UTI, OAB & Urge Incontinence *Oxybutynin ER 5mg QD therapy. Pt's OVERLOCK COLLAR SETTER put her on Macrobid and she takes one post-coital. Last CMP (per [facility] [place]) 12/22/21 *BUN 10.0 & Crea 0.50 Pt [...] Urinary tract infection, site not specified) Pt's OVERLOCK COLLAR SETTER put her on Macrobid and she takes one post-coital. Pt denies any UTIs since last visit. Pt states that she takes it about 1x a week. Risks/benefits of continued use discussed at length. Pt prefers to continue since it's working. Refills sent today to pharm on file. Ordered: E&M of Est. Patient Moderate 30-39 Min 54166 2. OAB (overactive bladder) (N32.81: Overactive bladder) Oxybutynin ER 5mg QD (switched from IR previously). No bothersome SE's. Denies frequency. Occasionally may wake up 1x/night. Discussed increasing dose, does not feel this is necessary. pleased w current sx. Refills sent today to pharm on file. Ordered: E&M of Est. Patient Moderate 30-39 Min 50314 3. Urge incontinence (N39.41: Urge incontinence) Pt states she dribbles at time but it has improved significantly since her last office visit. BBS 6. see #2. Ordered: E&M of Est. Patient Moderate 30-39 Min 21290 4. Fecal incontinence (R15.9: Full incontinence of [...] E&M of Est. Patient Moderate 30-39 Min 35756 Orders: nitrofurantoin, See Instructions, 1 cap orally after intercourse, # 30 cap(s), Refills(s) 3, Pharmacy: [facility]/pharmacy #[id number], 170, cm, 04/26/23 13:36:00 EDT, Height/Length Dosing, 69.1, kg, 04/26/23 13:36:00 EDT, Weight Dosing oxybutynin, 5 mg = 1 tab(s), Oral, Daily, # 90 tab(s), Refills(s) 3, Pharmacy: [facility]/pharmacy #[id number], 170, cm, 04/26/23 13:36:00 EDT, Height/Length Dosing, 69.1, kg, 04/26/23 13:36:00 EDT, Weight Dosing Follow up in 1 yr. All questions/concerns were discussed. Pt to call the office if she encounters any issues prior. Pt acknowledges understanding. Follow-up With When Contact Information FREYA JOHNSON PA-C, URL In 1 year [address] [place] [address] Additional Instructions: Patient Education Urinary Tract Infection, Adult, Tobs-af-Bhgp IQiana, personally scribed for Freya Johnson PA-C on 04/26/2023 13:55:30. . Documentation recorded by the kendra Garibay accurately reflects the services(s) I performed [...] 100 in (more content not included)... Normal [facility] Comment on above: Result Comment: Elec tronically Signed By: FREYA JOHNSON PA-C\.br\Date and Time Signed: 04/26/23 14:00 EDT\.br\Electronically Co-Signed By: Qiana Garibay\.br\Date and Time Co-Signed: 04/26/23 13:55 EDT Adrian 03-16-2023 L -- Specimen: [id number] Received: 03/16/23 Status: KYLE Demarco Num: [id number] Spec Type: Surgical Subm Dr: Meseret Cool MD Tissues: A Duodenum - Biopsy (DUODENAL BX) B GASTRIC FOR HP (GASTRIC HP) C Gastric Biopsy (GASTRIC POLYP) D Colon Biopsy (RANDOM BX) Procedures: TOM/Chris, Gross/Micro L4/4, H PYLORI -- Age/ Patient Sex Location Account Attending Physician -- Patty Wright 53/F [id number] Meseret Cool MD -- SPEC NUM: [id number] RECD: 03/16/23 STATUS: KYLE DEMARCO NUM: [id number] GILMAR: 03/16/23- [facility] DR: Meseret Cool MD ENTERED: 03/16/23 [facility] DR: SPEC TYPE: Surgical DEPT: S ORDERED: [...] for H. pylori (immunohistochemical stain) -- Specimen: [id number] Received: 03/16/23 Status: KYLE Demarco Num: [id number] Spec Type: Surgical Subm Dr: Meseret Cool MD Tissues: A Duodenum - Biopsy (DUODENAL BX) B GASTRIC FOR HP (GASTRIC HP) C Gastric Biopsy (GASTRIC POLYP) D Colon Biopsy (RANDOM BX) Procedures: HE/8, Gross/Micro L4/4, H PYLORI -- Patient: estivenPatty bishop [id number] (Continued) -- Specimen: [id number] Received: 03/16/23 (Continued) Pathological Diagnosis (Continued) Signed (signature on file) Glen Selby MD 03/21/23 1152 -- Specimen: [id number] Received: 03/16/23 Status: KYLE Demarco Num: [id number] Spec Type: Surgical Subm Dr: Meseret Cool MD Tissues: A Duodenum - Biopsy (DUODENAL BX) B GASTRIC FOR HP (GASTRIC HP) C Gastric Biopsy (GASTRIC POLYP) D Colon Biopsy (RANDOM BX) Procedures: TOM/Chris, Gross/Micro L4/4, H PYLORI -- Patient: Patty Wright [id number] (Continued) -- Specimen: [id number] Received: 03/16/23 (Continued) Pathological Diagnosis (Continued) D. Colon, biopsy: [...] date of and gastric polyp are two opllock tissues measuring 0.5 x 0.4 x 0.3 [...] examination confi (more content not included)... Normal [facility] CBC AUTO DIFFon 01-18-2023 BASO # 0.1 103/ul Normal 0.0-0.1 [facility] Comment on above: Performed By: #### C BC #### [facility] [address] [address] [address] Vasyl Irving Basophils/100 WBC (Bld) 1.0 % Normal 0.2-2.0 [facility] Comment on above: Performed By: #### C BC #### [facility] [address] [address] [address] Vasyl Irving EO # 0.1 103/ul Normal 0.0-0.7 [facility] Comment on above: Performed By: #### C BC #### [facility] [address] [place] [address] Dr. Vasyl Irving Eosinophils/100 WBC (Bld) 2.0 % Normal 0.9-7.0 [facility] Comment on above: Performed By: #### C BC #### [facility] [address] [place] [address] Dr. Vasyl Irving Erythrocyte distribution width (RBC) [Ratio] 12.7 % Normal 11.0-15.0 [facility] Comment on above: Performed By: #### C BC #### [facility] [address] [place] [address] Dr. Vasyl Irving Hematocrit (Bld) [Volume fraction] 42.6 % Normal 36.0-48.0 [facility] Comment on above: Performed By: #### C BC #### [facility] [address] [place] [address] Dr. Vasyl Irving Hemoglobin (Bld) [Mass/Vol] 14.2 g/dL Normal 12.0-16.0 [facility] Comment on above: Performed By: #### C BC #### [facility] [address] [place] [address] Dr. Vasyl Irving IG # 0.01 10e3/ul Normal 0.00-0.03 [facility] Comment on above: Performed By: #### C BC #### [facility] [address] [place] [address] Dr. Vasyl Irving IG % 0.2 % Normal 0.0-0.5 [facility] Comment on above: Performed By: #### C BC #### [facility] [address] [place] [address] Dr. Vasyl Irving LYMPH # 2.2 103/ul Normal 1.2-3.8 [facility] Comment on above: Performed By: #### C BC #### [facility] [address] [place] [address] Dr. Vasyl Irving Lymphocytes/100 WBC (Bld) 42.2 % Normal 20.5-60.0 [facility] Comment on above: Performed By: #### C BC #### [facility] [address] [place] [address] Dr. Vasyl Irving MANUAL DIFF REQ NO Normal [facility] Comment on above: Performed By: #### C BC #### [facility] [address] [place] [address] Dr. Vasyl Irving MCH (RBC) [Entitic mass] 31.7 pg Normal 26.7-34.0 [facility] Comment on above: Performed By: #### C BC #### [facility] [address] [place] [address] Dr. Vasyl Irving MCHC (RBC) [Mass/Vol] 33.3 g/dL Normal 29.9-35.2 [facility] Comment on above: Performed By: #### C BC #### [facility] [address] [place] [address] Dr. Vasyl Irving MCV (RBC) [Entitic vol] 95.1 fL Normal 81.0-99.0 [facility] Comment on above: Performed By: #### C BC #### [facility] [address] [place] [address] Dr. Vasyl Irving MONO # 0.3 103/ul Normal 0.3-0.8 [facility] Comment on above: Performed By: #### C BC #### [facility] [address] [place] [address] Dr. Vasyl Irving Monocytes/100 WBC (Bld) 5.9 % Normal 1.7-12.0 [facility] Comment on above: Performed By: #### C BC #### [facility] [address] [place] [address] Dr. Vasyl Irving NEUT # 2.5 103/ul Normal 1.4-6.5 [facility] Comment on above: Performed By: #### C BC #### [facility] [address] [place] [address] Dr. Vasyl Irving Neutrophils/100 WBC (Bld) 48.7 % Normal 43.0-75.0 [facility] Comment on above: Performed By: #### C BC #### [facility] [address] [place] [address] Dr. Vasyl Irving Platelet mean volume (Bld) [Entitic vol] 9.7 fL Normal 9.5-13.5 [facility] Comment on above: Performed By: #### C BC #### [facility] [address] [place] [address] Dr. Vasyl Irving PLT 220 103/ul Normal 150-450 [facility] Comment on above: Performed By: #### C BC #### [facility] [address] [place] [address] Dr. Vasyl Irving RBC 4.48 106/ul Normal 4.20-5.40 [facility] Comment on above: Performed By: #### C BC #### [facility] [address] [place] [address] Dr. Vasyl Irving WBC 5.1 103/ul Normal 4.0-11.0 [facility] Comment on above: Performed By: #### C BC #### [facility] [address] [place] [address] Dr. Vasyl Irving CRPon 01-18-2023 CRP [Mass/Vol] mg/L Normal <=1.0 [facility] Comment on above: Performed By: #### C RP, TSH #### [facility] [address] [place] [address] Dr. Vasyl Irving SED RATE WESTERGRENon 2022 SED RATE 13 mm/hr Normal <=30 [facility] Comment on above: Performed By: #### S EDR #### [facility] [address] [place], [place] [address] Dr. Vasyl Irving TSHon 01-18-2023 TSH 1.088 uIU/mL Normal 0.358-3.74 0 [facility] Comment on above: Performed By: #### C RP, TSH #### [facility] [address] [place], [place] [address] Dr. Vasyl Irving MG MAMM SCREEN 3D SERGEI CADon 01-09-2023 MG MAMM SCREEN 3D SERGEI CAD Patient: PATTY WRIGHT Exam Date: 01/09/2023 : 1970 Gender:F Ordering : DR BRIJESH KEATING . Admission #: [id number] Family : Order #: [id number] CLICK HERE TO VIEW EXAM RADIOLOGY REPORT [...] Treatments None Family Cancers None LOCATION: [facility] BREAST COMPOSITION: Heterogeneously dense,which may obscure small [...] Easley M.D. on 01/09/2023 at 12:05 Normal [facility] PAP ACOG PANEL 2: 30 to 65on 11-09-2022 . . Normal [facility] Comment on above: Result Comment: Perf ormed at: WB Performed By: #### 4 [id number] #### [facility] [address] [place] [address] Dr. Vasyl Irving Age Gdln ACOG Testing 30-65 Normal [facility] Comment on above: Performed By: #### 4 [id number] #### [facility] [address] [place] [address] Dr. Vasyl Irving DIAGNOSIS: Comment Normal [facility] Comment on above: Result Comment: NEGA TIVE FOR INTRAEPITHELIAL LESION OR MALIGNANCY. Performed at: WB Performed By: #### 4 [id number] #### [facility] [address] [place] [address] Dr. Vasyl Irving HPV Aptima Negative Normal Negative [facility] Comment on above: Result Comment: This nucleic acid amplification test detects fourteen high-risk HPV types (16,18,31,33,35,39,45,51,52,56,58,59,66,68) without differentiation. Performed at: =G Performed By: #### 4 [id number] #### [facility] [address] [place] [address] Dr. Vasyl Irving HPV Genotype Reflex Comment Normal [facility] Comment on above: Result Comment: Crit eria not met, HPV Genotype not performed. Performed at: WB Performed By: #### 4 [id number] #### [facility] [address] [place] [address] Dr. Vasyl Irving Methodology: Comment Normal [facility] Comment on above: Result Comment: This liquid based ThinPrep(R) pap test was screened with the use of an image guided system. Performed at: WB Performed By: #### 4 [id number] #### [facility] [address] [place] [address] Dr. Vasyl Irving Note: Comment Normal [facility] Comment on above: Result Comment: The Pap smear is a screening test designed to aid in the detection of premalignant and malignant conditions of the uterine cervix. It is not a diagnostic procedure and should not be used as the sole means of detecting cervical cancer. Both false-positive and false-negative reports do occur. . Performed at: WB Performed By: #### 4 [id number] #### [facility] [address] [place] [address] Dr. Vasyl Irving Performed by: Comment Normal [facility] Comment on above: Result Comment: Ebenezer Wang, Director Of Web Marketing (ASCP) Performed at: WB Performed By: #### 4 [id number] #### [facility] [address] [address] [address] Vasyl Irving Specimen adequacy: Comment Normal [facility] Comment on above: Result Comment: Sati sfactory for evaluation. No endocervical cells are present. This is consistent with a history of hysterectomy. Performed at: WB Performed By: #### 4 [id number] #### [facility] [address] [address] [address] Vasyl Irving STOOL CULTUREon 07-29-2022 Campylobacter Culture Final report [facility] Comment on above: Performed By: #### C XSTOOL #### [facility] [address] [address] [address] Vasyl Irving E coli Shiga Toxin EIA Negative Normal Negative [facility] Comment on above: Performed By: #### C XSTOOL #### [facility] [address] [address] [address] Vasyl Irving Result 1 Comment Normal [facility] Comment on above: Result Comment: No S almonella or Shigella recovered. Performed By: #### C XSTOOL #### [facility] [address] [address] [address] Vasyl Irving Result Comment: No C ampylobacter species isolated. Salmonella/Shigel la Screen Final report Normal [facility] Comment on above: Performed By: #### C XSTOOL #### [facility] [address] [address] [address] Vasyl Irving Urinalysis - AUTOMATEDon Appearance (U) thick [employer] Other Bilirubin Ql (U) Negative [employer] Other Color (U) red/orange [employer] Other Glucose Ql (U) 100 [employer] Other Hemoglobin Ql (U) moderate [facility] [employer] Other Ketones Ql (U) trace [employer] Other Leukocyte esterase Test strip Ql (U) large [employer] Other Nitrite Ql (U) Positive [employer] Other pH (U) 5.0 [pH] [facility] [facility] Other Protein Ql (U) 100 [place] Other Specific gravity (U) [Rel density] 1.010 [facility] Other Urobilinogen (U) [Mass/Vol] 2.0 mg/dL [facility] Other Urinalysis - AUTOMATED [employer] Other DIGITAL MAMM SCREENING W/ TO Agudelo 01-04-2021 DIGITAL MAMM SCREENING W/ ANIVAL Patient Name: PATTY WRIGHT STUDY: Digital mammography screening with anival; 01/04/2021 9:17 am ACCESSION NUMBER(S): [id number] ORDERING CLINICIAN: FELY DAMON INDICATION: Screening. COMPARISON: [...] Screening. 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 Vitals Vital Signs Recorded: 15Dec2020 08:54AM Bnnbcyetmfi39.8 F Dmwckpxi692 Zepguwxte72 Height5 ft 7.5 in Pfroaz378 lb 3.65 oz BMI Ifwmjlnofj25.33 BSA Calculated1.74 LMPhsyter Physical Exam A+O x [...] and is (more content not included)... Normal [facility] ATMOSPHERIC SCIENTIST - Office Visiton 04-22 ATMOSPHERIC SCIENTIST - Office Visit Chief Complaint PATIENT HERE [...] onychomycosis (V12.09) (Z86.19) History of screening mammography (V1.) (Z92.89) 01/03/2020 01/01/2019 History of Menstruation Onset [...] 4 times daily PRN abdominal cramping; Therapy: 39Qjk5838 to (Evaluate:94Gpm1675) Requested for: 52Inb5989; Last Rx:98Scw1868 Ordered Rx By: Yan Winslow; Dispense: 8 Days ; #:30 Tablet; Refill: 1;For: Epigastric pain; ELADIO = N; [facility]; Last Updated By: [employer]; 05/06/2020 11:44:32 AM Famotidine 20 MG Oral Tablet; Take 1 tablet twice daily; Therapy: 96Sgg1601 to (Evaluate:82Elo7812) Requested for: 44Vek0843; Last Rx:[id number] Ordered Rx By: Yan Winslow; Dispense: 30 Days ; #:60 Tablet; Refill: 1;For: Epigastric pain; ELADIO = N; Verified Transmission to [facility]; Last Updated By: [employer]; 05/06/2020 11:44:29 AM Nortriptyline HCl - 25 MG Oral Capsule; TAKE 1 CAPSULE AT BEDTIME; Therapy: 70Ivc9742 to (Evaluate:19Oct2020) Requested for: 25Oct2019; Last Rx:25Oct2019 Ordered Rx By: Yan Winslow; Dispense: 90 Days ; #:90 Capsule; Refill: 3;For: Health Maintenance; ELADIO = N; Verified Transmission to [facility] #6167; Last Updated By: [employer]; 10/25/2019 11:30:52 AM Pantoprazole Sodium 40 MG Oral Tablet Delayed Release; TAKE 1 TABLET DAILY Requested for: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 Expert. Performed By: #### 2 535318 #### LAVELLE [facility] [address] [place] [address] Neutro Absolute 2.0 E3/mcL Normal 1.4-6.5 [facility] Comment on above: Order Comment: Order Added by Discern Expert. Performed By: #### 2 694843 #### LAVELLE [facility] [address] [place] [address] Neutro Auto 47.3 % Normal 37.0-75.0 [facility] Comment on above: Order Comment: Order Added by Discern Expert. Performed By: #### 2 019398 #### LAVELLE [facility] [address] [place] [address] CBC w/ Auto Diffon 9 Erythrocyte distribution width Ratio (RBC) 13.6 % Normal 11.5-14.5 [facility] Comment on above: Performed By: #### 2 733988 #### LAVELLE [facility] [address] [place] [address] Hematocrit Volume Fraction (Bld) 45.2 % Normal 36.0-48.0 [facility] Comment on above: Performed By: #### 2 543003 #### LAVELLE [facility] [address] [place] [address] Hemoglobin mass conc (Bld) 14.7 g/dL Normal 12.0-16.0 [facility] Comment on above: Performed By: #### 2 623755 #### LAVELLE [facility] [address] [place] [address] MCH Entitic mass (RBC) 31.1 pg High 27.0-31.0 [facility] Comment on above: Performed By: #### 2 065658 #### LAVELLE [facility] [address] [place] [address] MCHC mass conc (RBC) 32.5 g/dL Low 33.0-37.0 [facility] Comment on above: Performed By: #### 2 777128 #### LAVELLE [facility] [address] [place] [id number] MCV Entitic volume (RBC) 95.5 fL Normal 78.0-100.0 [facility] Comment on above: Performed By: #### 2 141594 #### LAVELLE [facility] [place] [id number] Platelet mean volume Entitic volume (Bld) 8.7 fL Normal 7.4-11.0 [facility] Comment on above: Performed By: #### 2 [id number] #### LAVELLE [facility] [address] [place], [place] [address] Platelets #/vol (Bld) 236 E3/mcL Normal 130-400 [facility] Comment on above: Performed By: #### 2 524325 #### LAVELLE [facility] [address] [place], [place] [address] RBC #/vol (Bld) 4.73 E6/mcL Normal 3.90-5.40 [facility] Comment on above: Performed By: #### 2 531771 #### LAVELLECaroline [facility] [address] [place], [place] [address] WBC #/vol (Bld) 4.3 E3/mcL Normal 3.6-11.0 [facility] Comment on above: Performed By: #### 2 134174 #### LAVELLE [facility] [address] [place], [place] [address] CMPon 09-25-2018 Albumin mass conc 4.5 g/dL Normal 3.4-5.0 [facility] Comment on above: Performed By: #### 2 169071 #### LAVELLE [employer] [address] [place], [place] [address] Albumin/Globulin mass ratio 1.8 {ratio} Normal 1.1-1.9 [facility] Comment on above: Performed By: #### 2 291761 #### LAVELLE [place] [id number] Alk Phos 77 Int._Unit/L Normal 33-110 [facility] Comment on above: Performed By: #### 2 023176 #### [facility] [employer] [place] [id number] ALT enzyme act/vol 14 Int._Unit/L Normal 7-45 [facility] Comment on above: Performed By: #### 2 680722 #### LAVELLE [employer] [address] [place] [address] Anion gap molar conc 9 mmol/L Low 10-20 [facility] Comment on above: Performed By: #### 2 888522 #### LAVELLE [employer] [address] [place] [address] AST enzyme act/vol 19 Int._Unit/L Normal 9-39 [facility] Comment on above: Performed By: #### 2 349772 #### LAVELLE [employer] [address] [place] [address] Bili Total 0.49 mg/dL Normal 0.00-1.20 [facility] Comment on above: Performed By: #### 2 489543 #### LAVELLE [employer] [address] [place] [address] Calcium mass conc 9.8 mg/dL Normal 8.6-10.3 [facility] Comment on above: Performed By: #### 2 069925 #### LAVELLE [employer] [address] [place] [address] Chloride molar conc 105 mmol/L Normal 98-107 [facility] Comment on above: Performed By: #### 2 246214 #### LAVELLE [employer] [address] [place] [address] CO2 molar conc 30.0 mmol/L Normal 21.0-32.0 [facility] Comment on above: Performed By: #### 2 362649 #### LAVELLE [employer] [address] [place] [address] Creatinine mass conc 0.6 mg/dL Normal 0.5-1.1 [facility] Comment on above: Performed By: #### 2 214943 #### LAVELLE [employer] [address] [place] [address] Globulin mass conc (S) 3.0 g/dL Normal 2.0-4.0 [facility] Comment on above: Performed By: #### 2 445003 #### LAVELLE [employer] [address] [place] [address] Glucose mass conc 86 mg/dL Normal 70-99 [facility] Comment on above: Performed By: #### 2 956021 #### LAVELLE [employer] [address] [place] [address] Potassium molar conc 4.2 mmol/L Normal 3.5-5.3 [facility] Comment on above: Performed By: #### 2 221121 #### LAVELLE [employer] [address] [place] [address] Protein mass conc 7.0 g/dL Normal 6.4-8.2 [facility] Comment on above: Performed By: #### 2 210668 #### LAVELLE [employer] [address] [place] [address] 48916 Sodium molar conc 140 mmol/L Normal 136-145 [facility] Comment on above: Performed By: #### 2 011867 #### LAVELLE [employer] [address] [place] [address] Urea nitrogen mass conc 13 mg/dL Normal 6-23 [facility] Comment on above: Performed By: #### 2 794786 #### LAVELLE [employer] [address] [place], [place] [address] Urea nitrogen/Creatini ne mass ratio 21.7 ratio Normal 5.4-30.0 [facility] Comment on above: Performed By: #### 2 008573 #### LAVELLE [employer] [address] [place] [address] TSHon 09-25-2018 Thyrotropin Qn 0.02 mcIU/mL Low 0.30-5.60 [facility] Comment on above: Performed By: #### 2 412432 #### LAVELLE [employer] [address] [place], [place] [address] eGFRon 09-25-2018 GFR/1.73 sq M predicted among non-blacks MDRD vol rate/area (S/P/Bld) mL/min/{1.73_m2} Normal [facility] Comment on above: Order Comment: Order added by Discern Expert. Performed By: #### 1 [id number] #### LAVELLE [facility] [address] [place] [address] Vit B12on 08-07-2018 Cobalamin (Vitamin B12) mass conc 784 pg/mL Normal 180-914 [facility] Comment on above: Performed By: #### 2 793577 #### LAVELLE [employer] [address] [place] [address] TSHon 05-02-2018 Thyrotropin Qn 0.06 mIU/m Low 0.30-5.60 [facility] Comment on above: Performed By: #### 2 413104 #### LAVELLE [facility] [place] [address] Vit B12on 05-02-2018 Cobalamin (Vitamin B12) mass conc 240 pg/mL Normal 180-914 [facility] Comment on above: Performed By: #### 2 297919 #### LAVELLE [facility] [place] [id number] C Urineon 02-07-2018 C Urine Final Report: Light growth of Mixed skin contaminants in Moderate Normal skin michael isolated Normal [facility] Comment on above: Performed By: #### 2 609893 #### LAVELLE [facility] [place] [id number] Pathology (EM)on 03-16-2017 Pathology (EM) FINAL GYNECOLOGIC CY TOLOGY [id number] ADEQUACYUnsatisfactory for Evaluation. Specimen is processed and examined, butunsatisfactory for evaluation of epithelial abnormality due to:Scant cellularity.GENERAL CATEGORIZATIONUnsatisfactory for evaluation.COMMENTHigh Risk HPV was ordered and performed at [facility] Laboratory. Results arereported below in this report. A negative result is a normal result. Apositive result is an abnormal result.HPV HIGH RISK NEGATIVE: The results of this test indicate the patient'sspecimen is NEGATIVE for the following high-risk HPV types:16/18/31/33/35/39/45/51/ 52/56/58/59/66/68. RELATED LABORATORY RESULTSOrdered by: TIZANOfrancois Date: 03/16/2017 Ord Time: 20:44Test Collected Result Abnormal Range Units SpecimenName D&T TypeHPV Negative NA MSCRNA, 7HighRiskThe HPV test detects E6/E7 viral messenger RNA (mRNA) high-risk HPV votojzpvv18,18,31,33,35,39,45, 51,55,58,59,66, and 68 which are associated with cervicalcancer and its precursor lesions. However, cross-reactions with othergenotypes may occur. Results should be correlated with cytologic andhistologic findings. Sensitivity may be affected by cellularity of specimen.CLINICAL HISTORYComment: LMP: No UterusHysterectomySPECIMEN(A) SCREENING VAGINAL LIQUID-BASED PAP SMEARPerformed at [facility], [address] [place], [place] [address]Autytokc by: Signed Out by: DAVON CASTILOL Director Of Web Marketing Reported: 03/20/2017 Normal [facility] Comment on above: Performed By: #### G YN ####[facility] [address] [place] [address] Vital Signs Date Time Vital Sign Value Performing Clinician Facility 07-24-2023 14:45-0500 Body height 171.45 cm Freya Ponce Other [facility] Other 07-24-2023 14:45-0500 Body mass index (BMI) [Ratio] 22.53 kg/m2 Freya Ponce Other [facility] Other 07-24-2023 14:45-0500 Body weight 66.23 kg Freya Ponce Other [facility] Other 07-24-2023 14:45-0500 Diastolic blood pressure 62 mm[Hg] Freya Ponce Other [facility] Other 07-24-2023 14:45-0500 SaO2% (BldA) [Mass fraction] 98 % Freya Ponce Other [facility] Other 07-24-2023 14:45-0500 Systolic blood pressure 104 mm[Hg] Freya Ponce Other [facility] Other 06-30-2023 09:00-0500 Body height 171.45 cm Freya Kris Other [facility] Other 06-30-2023 09:00-0500 Body mass index (BMI) [Ratio] 22.68 kg/m2 Freya Kris Other [facility] Other 06-30-2023 09:00-0500 Body weight 66.68 kg Freya Kris Other [facility] Other 06-30-2023 09:00-0500 Diastolic blood pressure 64 mm[Hg] Freya Kris Other [facility] Other 06-30-2023 09:00-0500 SaO2% (BldA) [Mass fraction] 97 % Freya Kris Other [facility] Other 06-30-2023 09:00-0500 Systolic blood pressure 102 mm[Hg] Freya Kris Other [facility] Other 05-10-2023 13:00-0400 Body height 171.45 cm Imad Asaad Other [facility] Other 05-10-2023 13:00-0400 Body mass index (BMI) [Ratio] 23.07 kg/m2 Imad Asaad Other [facility] Other 05-10-2023 13:00-0400 Body weight 67.81 kg Imad Asaad Other [facility] Other 05-10-2023 13:00-0400 Diastolic blood pressure 83 mm[Hg] Imad Asaad Other charity: water [facility] [employer] Other 05-10-2023 13:00-0400 Systolic blood pressure 130 mm[Hg] Meseret Cool Other [facility] Other 04-26-2023 13:34-0400 Blood Pressure Location FREYA ALEX [facility] 04-26-2023 13:34-0400 Diastolic blood pressure 76 mm[Hg] FREYA ALEX [facility] 04-26-2023 13:34-0400 Heart rate 76 /min FREYA ALEX [facility] 04-26-2023 13:34-0400 Respiratory rate 16 /min FREYA ALEX [facility] 04-26-2023 13:34-0400 Systolic blood pressure 112 mm[Hg] FREYA LAEX [facility] 09-09-2022 09:30-0500 Body height 171.45 cm Xiomara Aaron Other charity: water [facility] [employer] Other 09-09-2022 09:30-0500 Body mass index (BMI) [Ratio] 23.61 kg/m2 Xiomara Aaron Other charity: water [facility] [employer] Other 09-09-2022 09:30-0500 Body weight 69.4 kg Xiomara Aaron Other [facility] Other 09-09-2022 09:30-0500 Diastolic blood pressure 72 mm[Hg] Xiomara Aaron Other [facility] Other 01-20-2023 09:30-0500 SaO2% (BldA) [Mass fraction] 98 % Xiomara Aaron Other [facility] Other 09-09-2022 09:30-0500 Systolic blood pressure 126 mm[Hg] Xiomara Aaron Other [facility] Other 12-08-2021 09:21-0400 Blood Pressure Location FREYA JOHNSON [facility] [employer] 12-08-2021 09:21-0400 Diastolic blood pressure 77 mm[Hg] FREYA JOHNSON [facility] [employer] 12-08-2021 09:21-0400 Heart rate 72 /min [facility] 12-08-2021 09:21-0400 Systolic blood pressure 111 mm[Hg] FREYA JOHNSON [facility] [employer] 11-01-2021 11:45-0400 Body height 171.45 cm Shan Kerr Other [facility] Other 11-01-2021 11:45-0400 Body mass index (BMI) [Ratio] 22.53 kg/m2 Shan Kerr Other [facility] Other 11-01-2021 11:45-0400 Body weight 66.23 kg Shan Kerr Other [facility] Other 11-01-2021 11:45-0400 Diastolic blood pressure 69 mm[Hg] Shan Kerr Other [facility] Other 11-01-2021 11:45-0400 Systolic blood pressure 107 mm[Hg] Shan Kerr Other [facility] Other 10-17-2021 14:05-0500 Body height 171.45 cm Blaire Collier Other [facility] Other 10-17-2021 14:05-0500 Body mass index (BMI) [Ratio] 23.45 kg/m2 Blaire Collier Other [facility] Other 10-17-2021 14:05-0500 Body temperature 97.8 [degF] Blaire Collier Other [facility] Other 10-17-2021 14:05-0500 Body weight 68.95 kg Blaire Collier Other [facility] Other 10-17-2021 14:05-0500 Diastolic blood pressure 63 mm[Hg] Blaire Collier Other [facility] Other 10-17-2021 14:05-0500 Respiratory rate 18 /min Blaire Collier Other [facility] Other 10-17-2021 14:05-0500 SaO2% (BldA) [Mass fraction] 99 % Blaire Collier Other [facility] Other 10-17-2021 14:05-0500 Systolic blood pressure 99 mm[Hg] Blaire Collier Other [facility] Other 06-11-2019 12:08-0400 BMI (Body Mass Index) 22.84 kg/m2 Saba Jenkins [facility] Work Phone: 06-11-2019 12:08-0400 Body weight 67.13 kg Saba Dickerson [facility] Work Phone: 06-11-2019 12:08-0400 BP Diastolic 62 mm[Hg] Saba Dickerson [facility] Work Phone: 06-11-2019 12:08-0400 BP Systolic 110 mm[Hg] Saba Dickerson [facility] Work Phone: 06-11-2019 12:08-0400 BSA (Body Surface Area) 1.79 m2 Saba Dickerson [facility] Work Phone: 06-11-2019 12:08-0400 Height 171.45 cm Saba Dickerson [facility] Work Phone: 06-11-2019 12:08-0400 Pulse (Heart Rate) 76 /min Saba Dickerson [facility] Work Phone: 06-03-2019 12:41-0400 BMI (Body Mass Index) 22.49 kg/m2 Yan [facility] Work Phone: 06-03-2019 12:41-0400 Body weight 65 kg Yan [facility] Work Phone: 06-03-2019 12:41-0400 BP Diastolic 68 mm[Hg] Yan [facility] Work Phone: Comment on above: Location: LUE06-03-2019 12:41-0400 BP Systolic 110 mm[Hg] Yan [facility] Work Phone: Comment on above: Location: LUE; 06-03-2019 12:41-0400 BSA (Body Surface Area) 1.75 m2 Yan [facility] Work Phone: 06-03-2019 12:41-0400 Height 170 cm Yan Winslow [facility] Work Phone: 06-03-2019 12:41-0400 Pulse (Heart Rate) 77 /min Yan Nayla [facility] Work Phone: Encounters Encounter Date Encounter Type Care Provider Facility Start: 04-30-2024 ambulatory FREYA Brooke ty:JUDITH Mcbride Start: 12-25-2023 End: 12-26-2023 ambulatory DON Mayberry [facility] Start: 11-08-2023 End: 11-08-2023 ambulatory ANA INGRAM Not Available Start: 08-07-2023 End: 08-07-2023 ambulatory Xiomara Aaron Other [facility] Other Start: 08-07-2023 Telephone encounter Xiomara Aaron [facility] Start: 07-24-2023 End: 07-24-2023 ambulatory Freya Ponce Other [facility] Other Start: 07-24-2023 Office outpatient vi sit 15 minutes Freya Ponce [facility] Start: 07-05-2023 End: 07-05-2023 ambulatory Freya Ponce Other [facility] Other Start: 07-05-2023 Telephone encounter Freya hemphill [facility] Start: 06-30-2023 End: 06-30-2023 ambulatory Freya Ponce Other [facility] Other Start: 06-30-2023 Office outpatient vi sit 15 minutes Freya Ponce [facility] Start: 05-10-2023 End: 05-10-2023 ambulatory Imad Asaad Other [facility] Other Start: 05-10-2023 Office outpatient ne w 45 minutes Imad Asaad [facility] Start: 04-26-2023 End: 04-27-2023 ambulatory FREYA E ALEX Facility: [facility] Start: 04-26-2023 End: 04-26-2023 Patient encounter procedure FREYA JOHNSON [facility] Start: 03-24-2023 End: 03-24-2023 ambulatory Imad Asaad Other [facility] Other Start: 03-24-2023 Telephone encounter Imad Asaad [facility] Start: 03-16-2023 End: 03-16-2023 ambulatory Xiomara Aaron Facility:[facility] Start: 01-30-2023 End: 01-30-2023 ambulatory Imad Asaad Other [facility] Other Start: 01-30-2023 Telephone encounter Imad Asaad [facility] Start: 01-18-2023 ambulatory IMAD ASAAD Facility:[facility] Start: 01-09-2023 End: 01-10-2023 ambulatory IMAD ASAAD Facility:[facility] Start: 11-01-2022 End: 11-01-[address] BRIJESH KEATING . Facility:[facility] Start: 09-09-2022 End: 09-09-2022 ambulatory Xiomara Aaron Other [facility] Other Start: 09-09-2022 Office outpatient vi sit 15 minutes [facility] [facility] Start: 07-23-2022 End: 07-24-[address] XIOMARA AARON Facility:[facility] Start: 07-21-2022 Encounter for cervic al smear to confirm findings of recent normal smear following initial abnormal smear Imad Asaad Other [facility] Other Start: 07-21-2022 Gynecological examination normal Imad Asaad Other [facility] Other Start: 07-21-2022 History of abnormal cervical Papanicolaou smear Imad Josephad Other [facility] Other Start: 12-16-2021 End: 12-16-2021 ambulatory Shan Ranjitgorge Other [facility] Other Start: 12-16-2021 Telephone encounter Shan Kerr [facility] Start: 12-14-2021 End: 12-14-2021 ambulatory Shan Kerr Other [facility] Other Start: 12-14-2021 Telephone encounter Shan Kerr [facility] Start: 12-08-2021 End: 12-08-2021 Patient encounter procedure FREYA JOHNSON [facility] Start: 11-19-2021 End: 11-19-2021 ambulatory Shan Ranjitgorge Other [facility] Other Start: 11-19-2021 Telephone encounter Shan Kerr [facility] Start: 11-01-2021 End: 11-01-2021 ambulatory Shan Kerr Other [facility] Other Start: 11-01-2021 Office outpatient vi sit 25 minutes Shan Kerr [facility] Start: 10-20-2021 End: 10-20-2021 ambulatory Blaire Collier Other [facility] Other Start: 10-20-2021 Telephone encounter Blaire Collier [facility] Start: 10-17-2021 End: 10-17-2021 ambulatory Blaire Collier Other [facility] Other Start: 10-17-2021 Office outpatient vi sit 15 minutes Blaire Collier [facility] Start: 01-26-2021 Rx Change Melvin [place] DO Work Phone: [email or web address] [address] Work Phone: Start: 01-25-2021 AUDIT Chance Lauren Work Phone: [employer] [address] Work Phone: Start: 05-19-2020 [facility] [address] Work Phone: Start: 05-06-2020 [facility] [address] Work Phone: Start: 04-02-2020 Patient encounter procedure [facility] [address] Work Phone: Start: 02-03-2020 [facility] [address] Work Phone: Start: 10-25-2019 Patient encounter procedure Fely Damon [facility] [address] Work Phone: Start: 06-11-2019 Patient encounter procedure Saba Jenkins [facility] Work Phone: Start: 06-03-2019 Patient encounter procedure Yan Winslow [facility] Work Phone: Start: 05-29-2019 Patient encounter procedure Yan Winslow [facility] [facility] Work Phone: Start: 05-29-2019 [facility]med[facility] with [facility] Work Phone: Start: 12-05-2018 Patient encounter procedure Yan Winslow [facility] [facility] Work Phone: Start: 11-27-2018 Patient encounter procedure Yan Winslow [facility] Work Phone: Start: 11-07-2018 [facility] Work Phone: Start: 12-10-2013 End: 12-10-2013 Telephone encounter aLrry Allen DO Work Phone: Neurology Comment on above: Results Cancer cervix - screening done Chance Rao MD Work Phone: [employer] Work Phone: Comment on above: 05/19/2020; ASCUS, [...] CT Abdomen and Pelvi s with Contrast Yan Winslow Start: 06-03-2019 Giardia/Cryptosporidium Yan Winslow Start: 06-03-2019 Iadna-dna/rna gi pth gn multiplex probe tq 6-11 Yan Winslow Start: 06-03-2019 Inf agent det nuclei c acid clostridium amp probe Yan Winslow Bilateral salpingect kamlesh with oophorectomy Yan Nayla Dilation and curettage Patbertha kinney [employer] Dilation and curetta ge of uterus FREYA BENTLEYRY H/O: hysterectomy FREYA MACKEY History of tonsillectomy JUAN JOSE VALENTINO ALEX Hysterectomy Yan Winslow Operative procedure on ankle Yan Winslow Procedure on foot FREYA MACKEY Tonsillectomy Yan Strickland s Plan of Treatment Date Care Activity Detail Author Start: 12-21-2021 Patient encounter procedure ANNUAL, Provider: Fely Damon, Status: Pen, Time: 9:00 AM [employer] Work Phone: Start: 04-21-2021 Influenza vaccination INFLUENZ A (Season Ended) [facility] Start: 2019 Screening for malign ant neoplasm of colon [facility] Start: 2019 SHINGRIX VACCINE (1 of 2) DAWKINS GRIX VACCINE (1 of 2) [facility] Start: 2014 DIABETES SCREEN DIABETES SCREEN [facility] Start: 2014 LIPID SCREEN LIPID SCREEN [facility] Start: 2009 Mammography MAMMOGRAM [facility] Start: 1999 HPV TESTING HPV TESTING [facility] Start: 1990 PAP TESTING PAP TESTING [facility] Start: 1988 Urine microalbumin profile DTAP,TDAP,TD (1 - Tdap) [facility] Start: 1987 HEPATITIS C SCREENING HEPATITIS C SC REENING [facility] Start: 1987 HIV SCREENING HIV SCREENING [facility] Start: 1981 Adult depression screening assessment DEPRESSION SCREENING [facility] Immunizations Immunization Date Immunization Notes Care Provider Fa ryan 05-30-2022 influenza virus vaccine, split virus (incl. purified surface antigen) Imad Asaad Other [facility] Other 05-30-2022 Prevnar 20 Imad Asaad Other [facility] Other 12-17-2020 SARS-CoV-2 (COVID-19 ) mRNA BNT-162b2 [employer] [facility] 11-25-2020 SARS-CoV-2 (COVID-19 ) mRNA BNT-162b2 [employer] [facility] NEGATED: Highlighted row has not occurred!12-08-2021 influenza virus vaccine, unspecified formulation [employer] [facility] Payers Date Payer Category Payer Self-pay 2021 Unknown [id number] 2011 Private Health Insurance SHEEBA UGALDE OAP [id number] 2011-2015 PPO [id number] 2008 Self-pay SELF PAY HSP/MED ICAL SELF PAY [id number] 2008-2015 SELF PAY Indemnity [id number] 1969 Unknown [id number]. [id number] 1969 Unknown [id number]. [id number] 1969 Unknown [id number]. [id number] 1969 Unknown [id number]. [id number] 1969 Unknown [id number] [id number]. [id number] 1969 Unknown [id number] [id number]. [id number] 1969 Unknown [id number]. [id number] 1969 Unknown [id number] [id number] 1959 [facility] [id number] Unknown Unknown [id number] [id number] Social History Date Type Detail Facility Assertion Unknown if ever smoked [facility] Work Phone: Start: 08-01-2013 End: 04-26-2023 Tobacco smoking status NHIS Never smoker [facility] Start: 08-01-2013 Alcohol intake Current drinke r of alcohol (finding) [facility] Start: 07-30-2012 Alcohol Comment [facility] Start: 1970 Sex Assigned At Not on file [facility] Non-smoker [facility] [employer] Work Phone: Tobacco smoking status Never [facility] Sex Assigned At Female [facility] Other Functional Status Date Assessment Result Facility 04-26-2023 Functional Status N/A [facility] NEGATED: Highlighted row Functional performance Functional status health issues are not documented [facility] Work Phone: Mental Status Date Assessment Result Facility NEGATED: Highlighted row Cognitive function [Interpretation] Cognitive status health issues are not documented Disease [facility] Work Phone: Clinical Notes 12-12-2013 to 07-24-2023 [...] understanding and is agreeable to treatment plan. [facility] Other 11-15-2023 Evaluation note* Encounter Date Diagnosis Assessment Notes Treatment Notes Treatment Clinical Notes Jun, Acute vaginitis (ICD-10 - N76.0) [facility] Other 11-10-2023 Evaluation note* Encounter Date Diagnosis [...] verbalizes understanding and agrees with tx plan. [facility] Other 09-20-2023 Evaluation note* Encounter Date Diagnosis Assessment Notes Treatment Notes Treatment Clinical Notes Apr, Gluten intolerance (ICD-10 - K90.0) [facility] Other 09-06-2023 Hospital Discharge instructions Patient Education 04/26/2023 13:55:04 Urinary Tract Infection, Adult, [facility] Urinary Tract Infection, Adult A urinary tract [...] Follow these instructions at home: Medicines Take hmyd-ehd-eurlwvq and prescription medicines only as told by [...] provider. Document Revised: 03/19/2021 Document Reviewed: 03/19/2021 [employer] Patient Education 2022 Med Access. Follow Up Care 03/30/2022 13:19:45 With:FREYA JOHNSON PA-C, URL Address: [address] [place] [id number] When:Within 1 Year(s) [facility] 08-04-2023 Evaluation note* Encounter Date Diagnosis Assessment Notes Treatment Notes Treatment Clinical Notes Mar, Change in bowel habits (ICD-10 - R19.4) Mar, Fecal incontinence (ICD-10 - R15.9) Mar, Bloating (ICD-10 - R14.0) Mar, Diarrhea, unspecified (ICD-10 - R19.7) [facility] Other 01-20-2023 Evaluation note* Encounter Date Diagnosis Assessment Notes Treatment Notes Treatment Clinical Notes Aug, Left medial knee pain (ICD-10 - M25.562) Discussed options. Handwrote order for pt. Gave exercises for stretching at home. Will call if no improvment for a potential ortho referral. Discussed NSAIDs and heat for improvement [facility] Other 04-20-2022 Hospital Discharge instructions Patient Education [...] fried and sweet foods. General instructions Take squd-iqw-pvcmdfd and prescription medicines only as told by [...] 06/03/2010 Document Revised: 11/28/2019 Document Reviewed: 08/23/2018 [employer] Patient Education 2020 Med Access. Follow Up Care 11/11/2021 12:54:29 With:ALEX DANIEL, FREYA Hunter, URL [address]: [address] [place] [address] When:3 months [facility] Evaluation note* Encounter Date Diagnosis Assessment Notes Treatment Notes Treatment Clinical Notes Oct, Irritable bowel syndrome with both constipation and diarrhea (ICD-10 - K58.2) Oct, Exocrine pancreatic insufficiency (ICD-10 - K86.81) SAMPLES OF ZENPEP GIVEN TO PT PT TO REPORT PROGRESS Oct, Fecal incontinence (ICD-10 - R15.9) Oct, GERD without esophagitis (ICD-10 - K21.9) [facility] Other 02-27-2022 Evaluation note* Encounter Date Diagnosis [...] infection (UTI) home care material was printed [facility] Other 09-29-2020 NoteAccession #: [id number] Date of Procedure: 05/19/2020 Pathologist: STEF GREEN MD Date Reported: 05/26/2020 Date Received: 05/19/2020 Submitting Physician: FELY DAMON CNM [facility] FINAL CYTOLOGICAL INTERPRETATION Squamous and/or Glandular Abnormality [...] patient?s Pap test results. Please refer to ASC current guidelines for the use of HPV DNA testing, result interpretation, and patient management. The performance of this test was verified by the Molecular Diagnostic Laboratory at [facility]. The lab is certified under the Clinical Laboratory Amendments of 1988 (CLIA 88) as qualified to perform high complexity clinical laboratory testing. This specimen has been analyzed by the [employer] (Mogot[employer].), an automated imaging and review system, which assists the laboratory in evaluating cells on ThinPrep Pap tests. Following automated imaging, selected vann from every slide were reviewed by a machine assistant and/or pathologist. Electronically Signed Out By STEF GREEN MD/HARITHA/CORTEZ By the signature on this report, the [...] Source of Specimen A: THINPREP PAP VAGINAL [facility] Department of Pathology [id number] [address]Comment on above:Performed By: #### C #### [facility] Cytology [address] [place] [address] [id number] Miscellaneous Notes* Telephone Encounter - Bridgette Owens [...] cap weekly for 10 weeks. Then, take zung-xoi-lnfwour Vitamin D3 supplements of at least 1,000 units daily. The following approved medication requests have been transmitted electronically. Signed Prescriptions Disp Refills cholecalciferol, Vitamin D3, 50,000 unit cap capsule 10 capsule 0 Si cap per week x 10 weeks. ELADIO: No Authorizing Provider: LARRY ALLEN DO documented in [facility] Center[facility] + Plan note Future Appointments Appointment Date:03/16/2022 08:30:00 AM Scheduled Provider:FREYA JOHNSON PA-C Location:[facility] Appointment Type:URO Office Visit [facility] evaluation + Plan note Future Appointments Appointment Date:04/30/2024 10:00:00 AM Scheduled Provider:FREYA JOHNSON PA-C Location:[facility] Appointment Type:URO Office Visit [facility] evaluation noteNo [facility] [employer] Other History general Narrative - Reported* Type Description Date Medical History Hypothyroidism Medical History insomnia Medical History acid reflux Surgical History tonsillectomy Surgical History D&C Surgical History hysterectomy Surgical History Foot Surgery right Hospitalization History see above [facility] Other Hisgeag general Narrative - Reported* Type Description Date Medical History Dyspnea Medical History Fatigue Medical History Abdominal bloating Medical History Abdominal pain, RUQ Medical History IBS (irritable bowel syndrome) Medical History Hypothyroidism (acquired) Medical History Acid reflux Surgical History tonsillectomy Surgical History D&C Surgical History hysterectomy Surgical History Foot Surgery right Hospitalization History SEE SURGICAL HX [facility] Other History general Narrative - Reported* Type Description Date [...] Surgery right Hospitalization History SEE SURGICAL HX [facility] Other Hisndlk general Narrative - Reported* Type Description Date [...] Repair 07/17/23 Hospitalization History SEE SURGICAL HX [facility] Other Hospital course Narrative No data available for this section [facility] [employer] progress note No data available for this section [facility] [employer] reason for visit Narrativeknee troubles, possible referralNomissouri rehabilitation center [employer] Other Summary Purpose Family History No Family History Records Found uncle Name Dates Details Family history of [...] section and content) DATE CREATED AUTHOR 02/14/2018 [facility] DATE CREATED AUTHOR AUTHOR'S ORGANIZ ATION 01/10/2019 [facility] DATE CREATED AUTHOR AUTHOR'S ORGANIZ ATION 01/17/[address] [facility] DATE CREATED AUTHOR AUTHOR'S ORGANIZ ATION 12/16/2020 [facility] DATE CREATED AUTHOR AUTHOR'S ORGANIZ ATION 12/16/2020 [facility] DATE CREATED AUTHOR AUTHOR'S ORGANIZ ATION 01/12/[address] [facility] DATE CREATED AUTHOR AUTHOR'S ORGANIZ ATION 01/27/2023 [facility] DATE CREATED AUTHOR AUTHOR'S ORGANIZ ATION 03/23/2023 [facility] DATE CREATED AUTHOR AUTHOR'S ORGANIZ ATION 04/27/2023 [facility] DATE CREATED AUTHOR AUTHOR'S ORGANIZ ATION 11/09/2023 [facility] DATE CREATED AUTHOR AUTHOR'S ORGANIZ ATION 12/26/2023 [facility] Source Comments (unrecognize d section and content) In the event this informatio n is protected by the Federal Confidentiality of Alcohol and Drug Abuse Patient Records regulations: The Federal rules restrict any use of the information to criminally investigate or prosecute any alcohol or drug abuse patient.[facility] Reason for Visit (unrecogniz ed section and content) Reason Onset Date Comments Results 12/10/2013 Patient Care team informatio n (unrecognized section and content) Personnel Name: XIOMARA AARON MD Address: Address: [address] [place] [address] FOR RECORDS PERTAINING TO PATIENTS WHO ARE [...] BE BASED ON THE PRIMARY CLINICAL RECORDS. [employer] [facility]. provides no warranty or guarantee of the accuracy or completeness of information in this document.
== END 2024-01-12 07:57 | disposition home or self-care (01) ==
LOC: MAMMO 07:56
PROVIDERS: PCP Family Medicine; Visit Provider Physician Assistant
DX: Z12.31 Encounter for screening mammogram for malignant neoplasm of breast (principal); Z78.0 Asymptomatic menopausal state
CPT/HCPCS: 77063; 77067; 77080

== ENCOUNTER 2024-06-17 12:07 | Outpatient (OUT) | payer BC, SELFPAY ==
[2024-06-17 13:02] LABS: Bilirubin Urine NEGATIVE (NEGATIVE); Blood Urine LARGE (NEGATIVE); Clarity Urine CLEAR (CLEAR); Glucose Urine UA NEGATIVE (NEGATIVE); Ketones Urine NEGATIVE (NEGATIVE); Leukocyte Esterase Urine SMALL (NEGATIVE); Nitrite Urine NEGATIVE (NEGATIVE); Protein Urine NEGATIVE (NEG/TRACE); Specific Gravity Urine >=1.030 (1.005-1.025); Urobilinogen Urine 0.2 EU/dL (0.2-1.0); pH Urine 5.5 (5.0-9.0)
[2024-06-17 13:06] LABS: Urine Microscopic Indicated YES
[2024-06-17 13:11] LABS: Bacteria Urine MODERATE #/HPF (NONE SEEN); Cast Seen? NONE SEEN #/LPF (NONE SEEN); Color Urine DK YELLOW (YELLOW); Crystals Seen? None Seen #/HPF (None Seen); Mucus Urine NONE SEEN (NONE SEEN); Squamous Epithelial Cell Urine FEW #/LPF (NONE/RARE)
[2024-06-17 13:12] LABS: RBC Urine 20-50 #/HPF (0-2); Urine Culture Indicated YES
== END 2024-06-17 12:08 | disposition home or self-care (01) ==
LOC: LAB 12:10
PROVIDERS: PCP Family Medicine; Visit Provider Physician Assistant
DX: R39.9 Unspecified symptoms and signs involving the genitourinary system (principal)
CPT/HCPCS: 81001; 87086

== ENCOUNTER 2024-06-20 14:22 | Outpatient (OUT) | payer BC, SELFPAY ==
--- OUTSIDE RECORDS SUMMARY | 2024-06-20 14:32 | XMS_ITS | CCD ---
Author Organization [facility] Care Team Providers Care Sheet Metal Helper Name Role Phone Saba Jenkins Unavailable Unavailable Furness, Yan T Unavailable Unavailable London, Ba U Unavailable Unavailable Wood, Javad Unavailable Unavailable Fried, Fely Unavailable Unavailable Furness, Yan Unavailable Unavailable DareMelvin martin Unavailable Unavailable Furness, Yan T Primary Care Provider [phone] Pending Provider Unavailable Unavailable Unavailable Unavailable Unavailable Unavailable XIOMARA AARON Primary Care Physician [phone] Blaire Collier Unavailable Shan Kerr Unavailable Xiomara [...] Unavailable MICHAEL, DR JOSE Martins Consulting Unavailable GALEN, DR XIOMARA Hunter Primary Care Unavailable ASAAD, IMAD Consulting Unavailable Asaad, Imad Unavailable Xiomara Aaron Primary Care Unavailable Asaad, Imad Attending Unavailable Asaad, Imad Admitting Unavailable Freya Ponce Unavailable ANA INGRAM Attending Unavailable DON ABRAHAM Referring Unavailable XIOMARA AARON Primary Care Unavailable FREDY JOHNSON Attending Xiomara Noonan MD Primary Care Provider Allergies Allergy Classification Reported Allergen(s) Allergy Type Date of Onset Reaction(s) Facility Macrolides (antibiotic) (3 sources) Azithromycin; Translations: [erythromycin] Drug Allergy 07-30-20 12 Vomiting [facility] (20 sources) Erythromycin; Translations: [Erythromycin] Drug Allergy 02-09-20 23 Vomitus (substance), GI intolerance [facility] Work Phone: (1 source) Erythromycin Drug Allergy 07-02-20 [facility] Repository (1 source) Erythromycin Drug Allergy 09-21-19 [facility] Repository (6 sources) Allergies Reconciled Propensity to adverse reactions Unknown [facility] Other Medications Current Medications Medication Drug Class(es) Dates Sig (Normalized) Sig (Original) [id number] 200 actuat albuterol 0.09 mg/actuat metered dose inhaler (12 sources) beta2-Adrenergic Agonist Start: 03-16-2023 take 90 ug by inhalation every four hours Albuterol Sulfate Active 90 MCG INHALATION Q4H March 16, 2023 12:00am albuterol HFA 90 mcg/act inhaler Inhale 1 puff if needed for wheezing Active take 2 puff(s) by mo uth every four hours as needed for cough Albuterol Sulfate HFA 108 (90 Base) MCG/ ACT INHALE 2 PUFFS BY MOUTH AND INTO THE LUNGS EVERY 4 HOURS NEEDED FOR COUGH, SHORTNESS OF BREATH for 30 Active take 2 puff(s) by mo uth every four hours as needed for cough Albuterol Sulfate HFA 108 (90 Base) MCG/ ACT INHALE 2 PUFFS BY MOUTH AND INTO THE LUNGS EVERY 4 HOURS NEEDED FOR COUGH, SHORTNESS OF BREATH for 30 Active take 2 puff(s) by mo uth every four hours as needed for cough Albuterol Sulfate HFA 108 (90 Base) MCG/ ACT INHALE 2 PUFFS BY MOUTH AND INTO THE LUNGS EVERY 4 HOURS NEEDED FOR COUGH, SHORTNESS OF BREATH for 30 Active alendronic acid 70 mg oral tablet (3 sources) Bisphosphonate Start: 01-25-2024 End: 01-24-2025 take 1 tablet by mouth in the morning alendronate (Fosamax) 70 MG tablet Indications: Osteopenia, unspecified location Take 1 tablet (70 mg) by mouth every 7 (seven) days Take in the morning with a full glass of water, on an empty stomach, and do not take anything else by mouth or lie down for the next 30 min. 4 tablet 11 01/25/2024 06/19/2024 Discontinued (Therapy completed) Allergy Relief (14 sources) Allergy Relief P [...] 4 more days for 5 Jul, Active cefdinir 300 mg oral capsule (1 source) Cephalosporin Antibacterial Start: 05-23-2024 take 300 mg by mouth twice daily Cefdinir Active 300 MG PO Twice daily May 23, 2024 12:00am ciprofloxacin 500 mg oral tablet (3 sources) Quinolone Antimicrobial Start: 06-17-2024 End: 06-24-2024 take 1 tablet by mouth in the morning ciprofloxacin (Cipro) 500 MG tablet Indications: Urinary Tract Infection Take 1 tablet (500 mg) by mouth in the morning and 1 tablet (500 mg) before bedtime. Do all this for 7 days. 14 tablet 06/17/2024 06/24/2024 Active dicyclomine hydrochloride 20 mg oral tablet [...] day for 10 days Jul, Active estradiol 2 mg oral tablet (20 sources) Estrogen Start: 05-23-2024 take 1 mg by mouth once daily Estradiol Active 1 MG PO Daily May 23, 2024 8:39am Start: 05-09-2024 Vagifem 10 mcg vaginal tablet INSERT 1 TABLET (10 MCG) VAGINALLY TWO TIMES A WEEK Start Date: 05/09/24 Status: Ordered Start: 01-11-2024 End: 06-19-2024 Vagifem 10 MCG tablet vagina l tablet Indications: Post menopausal syndrome INSERT 1 TABLET (10 MCG) VAGINALLY TWO TIMES A WEEK 24 tablet 1 01/11/2024 06/19/2024 Discontinued (Therapy completed) Start: 12-28-2023 take 1 tablet by chau th once daily estradiol (Estrace) 1 MG tablet Indications: Menopausal and female climacteric states TAKE 1 TABLET BY MOUTH EVERY DAY FOR 90 DAYS 90 tablet 3 12/28/2023 Active Start: 10-24-2023 End: 05-23-2024 take 2 mg by mouth once daily Estradiol Discontinued 2 MG PO Daily October 24, 2023 1:00am May 23, 2024 8:40am Start: 10-24-2023 End: 05-23-2024 Estradiol (Vagifem) 10 mcg t ablet Discontinued 10 MCG VAGINAL Twice a Week October 24, 2023 1:00am May 23, 2024 8:39am Start: 03-16-2023 End: 10-24-2023 take 1 mg by mouth once daily Estradiol Discontinued 1 MG PO Daily March 16, 2023 12:00am October 24, 2023 1:22pm Start: 03-16-2023 End: 10-23-2023 Estradiol (Vagifem) 10 mcg t ablet Discontinued 10 MCG VAGINAL every week March 16, 2023 12:00am October 23, 2023 4:20pm Start: 12-08-2021 Yuvafem 10 mcg vaginal tablet [...] Quantity: 20 Refills: 5 Ordered: 08-Sep-2020 Fried EMPLOYMENT ADJUDICATOR-CNM, EMPLOYMENT ADJUDICATOR-SENIOR SCHEDULER, Fely Start : 08-Sep-2020 Active Vagifem 10 [...] propionate 0.05 mg/actuat metered dose nasal spray (6 sources) Corticosteroid Start: 10-24-2023 Fluticasone Pr opionate Active 1 SPRAY INTRANASAL Daily October 24, 2023 1:00am Start: 06-30-2023 take 1 spray(s) nasa l route once daily Fluticasone Propionate 50 MCG/ACT 1 spray in each nostril Nasally Once a day for 30 days Jun, Active Start: 06-30-2023 take 1 spray(s) nasa l route once daily Fluticasone Propionate 50 MCG/ACT 1 spray in each nostril Nasally Once a day for 30 days Jun, Active ammonium lactate 120 mg/ml topical cream (3 sources) Start: 2024 End: 2025 ammonium lactate (Amlactin) 12 % cream Indications: Porokeratosis Apply topically Daily 140 g 3 2024 06/19/2024 Discontinued levothyroxine sodium 0.088 mg oral tablet (20 sources) l-Thyroxi ne Start: 01-12-2024 End: 04-18-2024 take 1 tablet by mouth once daily in the morning Levothyroxine Active 0 .ROUTE .COMPLEX 90 April 18, 2024 4:28pm TAKE 1 TABLET BY MOUTH EVERY DAY IN THE MORNING ON EMPTY STOMACH FOR 90 DAYS Start: 03-16-2023 End: 01-12-2024 take 1 tablet by mouth before mealtime levothyroxine (Synthroid, Levoxyl) 88 MCG tablet Take 88 mcg by mouth in the morning. Take before meals. 10/16/2023 Active Start: 12-08-2021 levothyroxine Daily, Refills(s) 0 Start [...] 1 tablet by chau th once daily Levothyroxine Sodium 100 MCG Oral Tablet TAKE 1 TABLET DAILY. Quantity: 90 Refills: 3 Ordered: 03-Feb-2020 Yan Winslow MD Active Comment on above: Take 100 mcg by mout h daily before breakfast. loratadine 10 mg oral tablet (1 source) Start: 4 take 1 tablet by mouth once daily Loratadine (Claritin) 10 mg tablet Active 10 MG PO Daily May 23, 2024 12:00am montelukast 10 mg oral tablet (8 sources) Leukotriene Receptor Antagonist Start: End: 5 take 1 tablet by mouth at bedtime montelukast (Singulair) 10 MG tablet Indications: Allergic rhinitis, unspecified seasonality, unspecified trigger Take 1 tablet (10 mg) by mouth at bedtime 90 tablet 3 06/19/2024 06/19/2025 Active Start: 10-25-2023 End: 02-28-2024 take 10 mg by mouth once daily at bedtime Montelukast Discontinued 0 .ROUTE .COMPLEX 90 February 28, 2024 8:28am February 28, 2024 1:35pm 10 MG ORALLY DAILY AT BEDTIME Multi-Day Plus Minerals (3 sources) Start: 12-08-2021 Multi-Day Plus Minerals Oral, Daily, Refill(s) 0 Start Date: 12/08/21 Status: Ordered Multiple Vitamins-Minerals (MULTIVITAMIN ADULT, MINERALS, PO) (3 sources) take 1 dose by mouth once daily Multiple Vitamins-Minerals (MULTIVITAMIN ADULT, MINERALS, PO) Take 1 each by mouth Daily Active Multivit With Min-Folic Acid (Adult One Daily Multivitamin) 0.4 mg Tablet (2 sources) Start: 03-16-2023 take 1 tablet by mouth once daily Multivit With Min-Folic Acid (Adult One Daily Multivitamin) 0.4 mg Tablet Active 1 TAB PO Daily March 16, 2023 12:00am Multivitamin preparation (7 sources) take 1 tablet by mouth once daily Multivitamin - 1 tablet Orally Once a day Active nitrofurantoin, macrocrystals 25 mg / nitrofurantoin, monohydrate 75 mg oral capsule (6 sources) Nitrofuran Antibacterial Start: 10-17-2021 End: 06-19-2024 Macrobid 100 mg Cap See Instructions, 1 cap orally after intercourse, # 30 cap(s), Refills(s) 3, Pharmacy: [facility]/pharmacy #[id number], 170, cm, 04/26/23 13:36:00 EDT, Height/Length Dosing, 69.1, kg, 04/26/23 13:36:00 EDT, Weight Dosing Start Date: 04/26/23 Status: Ordered omeprazole 20 mg delayed release oral capsule (9 sources) Proton Pump Inhibitor Start: 12-08-2021 take [...] tablet (20 sources) Cholinergic Muscarinic Antagonist Start: 03-16-2023 take 1 tablet by mouth once daily oxybutynin XL (Ditropan-XL) 5 MG 24 hr tablet Take 5 mg by mouth Daily 10/16/2023 Active Start: 12-08-2021 take 1 tablet by chau th once daily oxybutynin 5 mg ER Tab 5 mg = 1 tab(s), Oral, Daily, # 90 tab(s), Refills(s) 3, Pharmacy: [facility]/pharmacy #[id number], 170, cm, 12/08/21 9:43:00 EDT, Height/Length Dosing, 69.1, kg, 12/08/21 9:43:00 EDT, Weight Dosing Start Date: 12/08/21 Status: Ordered Start: 04-23-2020 take 1 tablet by chau once daily Oxybutynin Chloride ER 5 MG Oral Tablet Extended Release 24 Hour Take 1 tablet daily Quantity: 90 Refills: 3 Ordered: 23-Apr-2020 Yan Winslow MD Start : 23-Apr-2020 Active take 1 tablet by chau every twenty-four hours oxyBUTYnin Chloride 5 MG 1 tablet Orally Once a day Active pantoprazole 40 mg delayed release oral tablet (20 sources) Proton Pump Inhibitor Start: 03-25-2024 take 1 tablet by mouth once daily Pantoprazole Active 0 .ROUTE .COMPLEX 90 March 25, 2024 11:35am TAKE 1 TABLET BY MOUTH EVERY DAY Start: 03-16-2023 End: 03-25-2024 take 1 tablet by mouth once daily pantoprazole (ProtoNix) 40 MG EC tablet Take 40 mg by mouth Daily 09/17/2023 Active phenazopyridine hydrochloride 200 mg oral tablet (2 sources) Start: 10-17-2021 take 1 tablet by mouth every eight hours Pyridium 200 MG 1 tablet after meals Orally Three times a day for 2 day(s) Sep, Active sucralfate 1000 mg oral tablet (6 sources) Aluminum Complex Start: 12-08-2021 sucralfate 1 g Tab gm tab(s), Oral, [...] fills(s) 0 Start Date: 12/08/21 Status: Ordered take 1 dose by mouth once daily Cyanocobalamin (Vitamin B 12) 100 MCG lozenge Take 1 each by mouth Daily Active Vitamin B 12 Act kathryn take 1 tablet by mouth once emy y Vitamin B-12 ER 1000 MCG Oral Tablet Extended Release TAKE 1 TABLET DAILY DIRECTED. Quantity: 0 Refills: 0 Ordered: 07-Nov-2018 DO Active Vitamin B Complex (B Complex-Vitamin B12) Tablet (2 sources) Start: 03-16-2023 take 1 tablet by mouth once daily Vitamin B Complex (B Complex-Vitamin B12) Tablet Active 1 TAB PO Daily March 16, 2023 12:00am Vitamin D3 (2 sources) Vitamin D3 Activ e Yuvafem 10 mcg vaginal tablet (1 source) Start: 12-08-2021 Yuvafem 10 mcg [...] by chau th daily at bedtime. amylase [id number] unt / lipase 20116 unt / protease [id number] unt delayed release oral capsule (8 sources) Start: 11-01-2021 take 1 capsule by mouth every eight hours Zenpep [id number] UNIT 1 CAPSULE Orally THREE TIMES A DAY for 30 days Oct, Not-Taking Biotin (9 sources) Start: 03-16-2023 End: 10-25-2023 take 3334 ug by mouth once daily Biotin Discontinued 3334 MCG PO Daily March 16, 2023 12:00am October 25, 2023 11:08am take 1 tablet by chau th every twenty-four hours Biotin 78615 MCG 1 tablet Orally Once a day Active take 1 tablet by chau th every twenty-four hours Biotin 69573 MCG 1 tablet Orally Once a day Active take 1 tablet by mouth once emy y Biotin 59984 MCG 1 tablet Orally Once a day Active CALCIUM CARBONATE/VITAMIN D2 (CALCIUM + VITAMIN D ORAL) (1 source) End: 04-12-2016 take 600 mg by mouth once CALCIUM CARBONATE/VITAMIN D2 (CALCIUM + VITAMIN D ORAL) Take 600 mg by mouth. 0 04/12/2016 Discontinued (Discontinued by Patient) Comment on above: Take 600 mg by mouth . cetirizine hydrochloride 10 mg oral tablet (2 sources) Histamine-1 Receptor Antagonist Start: 10-24-2023 End: 05-23-2024 take 1 tablet by mouth once daily Cetirizine (24hour Allergy) 10 mg tablet Discontinued 10 MG PO Daily October 24, 2023 1:00am May 23, 2024 8:39am cholecalciferol 1.25 mg oral capsule (1 source) Vitamin D Start: 12-10-2013 cholecalciferol, Vitamin D3, 50,000 unit cap capsule 1 cap per week x 10 weeks. 10 capsule 0 12/10/2013 Active Comment on above: 1 cap per week x 10 weeks. estrogens, conjugated (custodial) 1.25 mg oral tablet (3 sources) Estrogen [...] extended release oral tablet (7 sources) Start: take 1 tablet by mouth every twelve hours Levbid 0.375 MG 1 tablet Orally every 12 hrs for 30 day(s) Nov, Not-Taking multivitamin tablet (1 source) End: take 1 tablet by mouth once daily [...] PRN Active olopatadine 1 mg/ml ophthalmic solution (20 sources) Histamine-1 Receptor Inhibitor Start: 03-16-2023 End: 05-23-2024 Olopatadine Discontinued 1 DROPS EYE-BOTH Twice daily March 16, 2023 12:00am May 23, 2024 8:39am separate doses by at least 6-8 hours Start: 12-08-2021 olopatadine op hthalmic 0.1% solution [...] Start : 31-Jul-2019 Active Olopatadine HCl Active [place] 0-Dgb-Csz-Fish Oil (Fish Oil) 100-160-1,000 mg capsule (2 sources) Start: 10-24-2023 End: 10-25-2023 take 100-160 capsules by mouth once daily [place] 5-Nmd-Zih-Fish Oil (Fish Oil) 100-160-1,000 mg capsule Discontinued 1 CAP PO Daily October 24, 2023 1:00am October 25, 2023 11:08am [place]-3 Fatty Acids (Fish Oil) Capsule (2 sources) Start: 03-16-2023 End: 10-23-2023 take 1 capsule by mouth once daily [place]-3 Fatty Acids (Fish Oil) Capsule Discontinued 1000 MG PO Daily March 16, 2023 12:00am October 23, 2023 4:20pm polyethylene glycol 3350 199902 mg / potassium chloride 2970 mg / sodium bicarbonate 6740 mg / sodium chloride 5860 mg / sodium sulfate 90629 mg powder for oral solution (3 sources) Osmotic Laxative Start: 01-05-2023 PEG-3350/Electrolyte s 236 GM as directed Orally once daily for 1 days December, Not-Taking predniSONE 20 mg oral tablet (2 sources) Start: 04-10-2024 End: 05-23-2024 take 20 mg by mouth twice daily Prednisone Discontinued 20 MG PO Twice daily April 10, 2024 12:00am May 23, 2024 8:40am w food rizatriptan 10 mg oral tablet (1 source) [...] (1 source) Serotonin Reuptake Inhibitor SERTRALINE HCL (ZOLOFT ORAL) Indications: Occipital neuralgia , Chronic daily [...] pain; Translations: [Generalized abdominal pain] Onset: 3 10-23-2023 Episodic Acute bronchitis (6 sources) Acute bronchitis; Translations: [Acute bronchitis due to other specified organisms] Episodic Allergic reactions (2 sources) Non-celiac gluten sensitivity; Translations: [Gluten intolerance] 10-23-2023 Chronic Calculus of urinary tract (9 sources) Ureteric stone; Translations: [Calculus of ureter] Episodic Cancer of uterus (15 sources) History of malignant neoplasm of uterine body; Translations: [Personal history of malignant neoplasm of other parts of uterus] Episodic Conditions associated with dizziness or vertigo (3 sources) Dizziness; Translations: [Dizziness and giddiness] Episodic Esophageal disorders (19 sources) Gastroesophageal reflux disease; Translations: [Gastroesophageal reflux disease without esophagitis] Onset: 2 Resolved: 2 12-03-2021 Chronic Genitourinary symptoms and ill-defined conditions (5 sources) Urge incontinence; Translations: [Urge incontinence of urine] Onset: 2 Chronic Genitourinary symptoms and ill-defined conditions (7 sources) Dysuria; Translations: [Genitourinary symptoms] Onset: 2 Resolved: 2 Episodic Headache; including migraine (1 source) Chronic intractable migraine without aura; Translations: [Chronic migraine without aura, intractable, without status migrainosus] Onset: 3 08-01-2013 Chronic Immunizations and screening for infectious disease (15 sources) Encounter for screening for human papillomavirus (HPV); Translations: [Human papilloma virus screening] Onset: 3 10-23-2023 Episodic Inflammatory diseases of female pelvic organs (1 source) Acute vaginitis Episodic Malaise and fatigue (14 sources) Fatigue; Translations: [Other malaise and fatigue] Onset: 4 10-23-2023 Episodic Menopausal disorders (9 sources) Menopausal symptom; Translations: [Menopausal syndrome] Chronic Nausea and vomiting (3 sources) Nausea; Translations: [Nausea alone] Episodic Nutritional deficiencies (10 sources) Vitamin D deficiency; Translations: [Unspecified vitamin D deficiency] Onset: 4 Chronic Other circulatory disease (7 sources) Acroparesthesia; Translations: [Distal paresthesia] Chronic Other diseases of bladder and urethra (14 sources) Overactive bladder; Translations: [Overactive bladder] 12-03-2021 Chronic Other diseases of bladder and urethra (3 sources) Detrusor overactivity; Translations: [Overactive bladder] Onset: [...] bowel syndrome; Translations: [Mixed irritable bowel syndrome] Onset: 4 12-03-2021 Chronic Other gastrointestinal disorders (1 source) Mixed irritable bowel syndrome Onset: 2 Resolved: 2 Chronic Other gastrointestinal disorders (1 source) Celiac disease; Translations: [Celiac disease] Chronic Other gastrointestinal disorders (5 sources) Celiac disease; Translations: [Gluten intolerance] Chronic Other gastrointestinal disorders (15 sources) Personal history of other diseases of the digestive system; Translations: [History of gastroesophageal reflux disease] Episodic Other gastrointestinal disorders (17 sources) Diarrhea; Translations: [Diarrhea] 10-23-2023 Episodic Other gastrointestinal disorders (13 sources) Abdominal bloating; Translations: [Flatulence, eructation, and gas pain] 10-23-2023 Episodic Other gastrointestinal disorders (6 sources) Swollen abdomen; Translations: [Abdominal distension (gaseous)] Episodic Other gastrointestinal disorders (15 sources) Incontinence of feces; Translations: [Full incontinence of feces] Onset: 3 Episodic Other gastrointestinal disorders (2 sources) Full incontinence of feces Onset: 2 Resolved: 2 Episodic Other gastrointestinal disorders (14 sources) Flatulence, eructation and gas pain; Translations: [Abdominal distension (gaseous)] Episodic Other gastrointestinal disorders (5 sources) Diarrhea, unspecified; Translations: [DIARRHEA UNSPECIFIED] Onset: Episodic Other gastrointestinal disorders (9 sources) Altered bowel function; Translations: [Change in bowel habit] 10-23-2023 Episodic Other gastrointestinal disorders (8 sources) Constipation alternates with diarrhea; Translations: [Other specified symptoms and signs involving the digestive system and abdomen] 10-23-2023 Episodic Other gastrointestinal disorders (1 source) Change in bowel habit Episodic Other gastrointestinal disorders (1 source) Abdominal distension (gaseous) Episodic Other gastrointestinal disorders (1 source) Other specified symptoms and signs involving the digestive system and abdomen; Translations: [Alternating constipation and diarrhea] Episodic Other gastrointestinal disorders (2 sources) Abdominal distension, gaseous; Translations: [Abdominal distension (gaseous)] 10-23-2023 Episodic Other infections; including parasitic (15 sources) H/O: infectious disease; Translations: [Personal history of other infectious and parasitic diseases] Episodic Other inflammatory condition of skin (3 sources) Sunburn of second degree; Translations: [Sunburn of second degree] Episodic Other inflammatory condition of skin (1 source) Sunburn of first degree; Translations: [Sunburn of first degree] 04-24-2024 Episodic Other inflammatory condition of skin (1 source) Sunburn of first degree; Translations: [Sunburn] 04-10-2024 Episodic Other lower respiratory disease (3 sources) Cough; Translations: [Cough] Episodic Other lower respiratory disease (2 sources) Dyspnea; Translations: [Dyspnea, unspecified] 10-23-2023 Episodic Other nervous system disorders (9 sources) [...] endocrine, metabolic, and immunity disorders] Episodic Other screening for suspected conditions (not mental disorders or infectious disease) (16 sources) Cancer cervix - screening done; Translations: [Patient encounter status] Onset: 2 Episodic Other upper respiratory disease (10 sources) Allergic rhinitis; Translations: [Allergic rhinitis due to other allergen] Onset: 4 10-25-2023 Chronic Other upper respiratory infections (16 sources) Chronic sinusitis; Translations: [Chronic sinusitis, unspecified] Onset: 4 05-23-2024 Chronic Other upper respiratory infections (2 sources) [...] Sexually transmitted infections (not HIV or hepatitis) (8 sources) Human papilloma virus deoxyribonucleic acid test positive, high risk on vaginal specimen; Translations: [Cervical high risk human papillomavirus (HPV) DNA test positive] 10-23-2023 Episodic Thyroid disorders (15 sources) Hypothyroidism; Translations: [Unspecified acquired hypothyroidism] Onset: 4 12-03-2021 Chronic Unclassified (6 sources) Acute candidiasis of vulva and vagina; Translations: [Acute candidiasis of vulva and vagina] Urinary tract infections (15 sources) Urinary tract infectious disease; Translations: [Urinary [...] [Chronic daily headache] Onset: 08-01-2013 08-01-2013 Episodic Pancreatic disorders (not diabetes) (1 source) Exocrine pancreatic insufficiency Onset: 11-01-2021 Resolved: 11-01-2021 Episodic Residual codes; unclassified (6 sources) Postmenopausal state; Translations: [Asymptomatic menopausal state] Onset: 10-27-2021 Episodic Residual codes; unclassified (5 sources) Menopause present; Translations: [Asymptomatic menopausal state] Onset: 10-27-2021 10-23-2023 Episodic Spondylosis; intervertebral disc disorders; other back [...] Test Name Value Interpretation Reference Range Facility Reminderson 05-09-2024 Reminders Reminders From: Jolly Araiza To: EU - Administrative; Sent: 05/09/2024 10:56:05 EDT Show up: 05/09/2024 10:56:00 EDT Subject: 1 yr F/U Due Date/Time: 05/10/2025 10:55:00 EDT Reminder/Recall Patient will need scheduled with for a 1 yr F/U, due back 05/10/2025 Normal [facility] Urology Office/Clinic Noteon 05-09-2024 Urology Office/Clinic Note Urology Office/Clinic Note Chief Complaint 1011 yr f/u HPI Staff 54 yr old female here for 1yr f/u DX: Frequent UTI, OAB & Urge Incontinence *Oxybutynin ER 5mg QD therapy pt denies any urinary issues IO today. Review of Systems PHQ Score Initial Depression Screen Score: 0 SCORE no fever, chills, malaise, myalgia. no rash/lesions. no chest pain, palpitations, or SOB. no abdominal pain, nausea, vomiting. no unilateral calf swelling, redness, pain Physical Exam Vitals & Measurements HR: 74(Peripheral) BP: 101/52 HT: 67 in HT: 170 cm WT: 69.1 kg WT: 152.02 lb BMI: 23.91 General: nontoxic, NAD Mouth: moist mucosa Lungs: normal respiratory effort Cardio: regular rate, good distal perfusion Abdomen: nondistended, no suprapubic distention or tenderness, no CVA tenderness Neurologic: Grossly normal Skin: No rashes or suspicious lesions Assessment/Plan 1. 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 Was taking once weekly with good results. Stopped about 6-12 mos ago without any breakthrough infections. No current UTI sx. Unable to give sample today. Ordered: E&M of Est. Patient Low 20-29 Min 45304 2. OAB (overactive bladder) (N32.81: Overactive bladder) Oxybutynin ER 5mg QD (switched from IR previously). I see that she is consistently filling this. No bothersome SE's. Denies frequency. Feels medication is working well and does not wish to make any adjustments at this time. Refills sent. Ordered: E&M of Est. Patient Low 20-29 Min [id number] 3. IBS (irritable bowel syndrome) (K58.9: Irritable bowel syndrome without diarrhea) previously reported occasional fecal incontinence. I recommended daily Miralax after a full bowel cleanout & see GI if that didn't help. Pt reports she tried the Miralax for a while without improvement in sx. Still having fecal incontinence intermittently. Very bothersome. Had long discussion about fiber goals and how fiber works to bulk stool. She will keep a food diary and figure out her baseline fiber intake, then add Fiber gummies or Metamucil daily. Will try this at least 2 mos. If still no improvement she will see her GI. Ordered: E&M of Est. Patient Low 20-29 Min 14077 Orders: nitrofurantoin, See Instructions, 1 cap orally after intercourse, # 30 cap(s), Refills(s) 3, Pharmacy: [facility]/pharmacy #[id number], 170, cm, 04/26/23 13:36:00 EDT, Height/Length Dosing, 69.1, kg, 04/26/23 13:36:00 EDT, Weight Dosing oxybutynin, 5 mg = 1 tab(s), Oral, Daily, # 90 tab(s), Refills(s) 3, Pharmacy: [facility]/pharmacy #[id number], 170, cm, 05/09/24 10:34:00 EDT, Height/Length Dosing, 69.1, kg, 05/09/24 10:34:00 EDT, Weight Dosing Follow-up With When Contact Information FREYA JOHNSON PA-C, URL Within 1 year Additional Instructions: Patient Education Fiber Content in Foods High-Fiber Eating Plan Overactive Bladder, Adult Problem List/Past Medical History Ongoing Frequent UTI GERD (gastroesophageal reflux disease) Hypothyroidism IBS (irritable bowel syndrome) OAB (overactive bladder) Urge incontinence Historical No qualifying data Procedure/Surgical History D&C - Dilatation and curettage, History of hysterectomy, History of tonsillectomy, Procedure on foot. Medications estradiol 1 mg Tab, 1 mg= 1 tab(s), Oral, Daily levothyroxine, Daily Multi-Day Plus Minerals, Oral, Daily olopatadine ophthalmic 0.1% solution, BID omeprazole 20 mg Cap-DR, Oral, Daily oxybutynin 5 mg ER Tab, 5 mg= 1 tab(s), Oral, Daily, 3 refills Vagifem 10 mcg vaginal tablet Vitamin B12 Allergies erythromycin (Vomit) Social History Tobacco Never (less than 100 in lifetime) Tobacco Use:. Never Smokeless Tobacco Use:. Household tobacco concerns: No., 05/09/2024 Family History Cancer of colon: Uncle. Heart disease: Grandparent and Uncle. Immunizations Vaccine Date Status Comments influenza virus vaccine, inactivated - Not Given Postpone due to refusal SARS-CoV-2 (COVID-19) mRNA BNT-162b2 vax 12/17/2020 Recorded SARS-CoV-2 (COVID-19) mRNA BNT-162b2 vax 11/25/2020 Recorded Normal [facility] Comment on above: Result Comment: Elec tronically Signed By: FREYA JOHNSON PA-C\.br\Date and Time Signed: 05/09/24 11:05 EDT Cortisol [Mass/Vol]on 2023 CORTISOL 9.4 ug/dL Normal [facility] Comment on above: Result Comment: Due to the diurnal variation of cortisol levels in normal subjects, all cortisol measurements should be referenced to the time of day of sample collection. AM Cortisol Age>=6 6.7-22.4 ug/dL PM Cortisol Age>=6 <10 ug/dL Performed By: #### 2 143-6 #### [facility] ([id number]) [address], [address] [place] [address] THYROGLOBULIN ABon 4 Thyroglobulin Ab Qn [IU]/mL Normal <4.0 [facility] Comment on above: Performed By: #### 3 5365-6, 8098-6, 8099-4 #### [facility] ([id number]) [address], [address] [place] [address] THYROPEROXIDASE ABon 024 TPO Ab Qn [IU]/mL Normal <10 [facility] Comment on above: Performed By: #### 3 5365-6, 8098-6, 8099-4 #### [facility] ([id number]) [address], [address] [place] [address] Vitamin D+Metabolites [Mass/ Vol]on 12-25-2023 VITAMIN D 25 HYD TOT 28.2 ng/mL Low 30-100 [facility] Comment on above: Result Comment: Vitamin D status 25 [place] Vitamin D Deficiency <20 ng/mL Insufficiency 20-29 ng/mL Sufficiency 30-100 ng/mL Toxicity >100 ng/mL NOTE: A pediatric reference range has not been established by the assistant department manager of this kit. The [employer] recommends a Vitamin D level of = or >20ng/mL in infants and children. Performed By: #### 3 5365-6, 8098-6, 8099-4 #### [facility] ([id number]) [address], [address] [place] [address] Adrian 03-16-2023 L -- Specimen: [id number] Received: 03/16/23 Status: KYLE Demarco Num: [id number] Spec Type: Surgical Subm Dr: Meseret Cool MD Tissues: A Duodenum - Biopsy (DUODENAL BX) B GASTRIC FOR HP (GASTRIC HP) C Gastric Biopsy (GASTRIC POLYP) D Colon Biopsy (RANDOM BX) Procedures: TOM/Chris, Gross/Micro L4/4, H PYLORI -- Age/ Patient Sex Location Account Attending Physician -- Patty Wright 53/F [id number] Meseret Cool MD -- SPEC NUM: [id number] RECD: 03/16/23 STATUS: KYLE DEMARCO NUM: [id number] [place]IL[place]: 03/16/23- [facility] DR: Meseret Cool MD ENTERED: 03/16/[address] [facility] DR: SPEC TYPE: Surgical DEPT: S ORDERED: [...] for H. pylori (immunohistochemical stain) -- Specimen: [id number] Received: 03/16/23 Status: KYLE Demarco Num: [id number] Spec Type: Surgical Subm Dr: Meseret Cool MD Tissues: A Duodenum - Biopsy (DUODENAL BX) B GASTRIC FOR HP (GASTRIC HP) C Gastric Biopsy (GASTRIC POLYP) D Colon Biopsy (RANDOM BX) Procedures: HE/8, Gross/Micro L4/4, H PYLORI -- Patient: KhalidaPatty [id number] (Continued) -- Specimen: [id number] Received: 03/16/23 (Continued) Pathological Diagnosis (Continued) Signed (signature on file) Glen Selby MD 03/21/23 1152 -- Specimen: [id number] Received: 03/16/23 Status: KYLE Demarco Num: [id number] Spec Type: Surgical Subm Dr: Meseret Cool MD Tissues: A Duodenum - Biopsy (DUODENAL BX) B GASTRIC FOR HP (GASTRIC HP) C Gastric Biopsy (GASTRIC POLYP) D Colon Biopsy (RANDOM BX) Procedures: HE/8, Gross/Micro L4/4, H PYLORI -- Patient: Patty Wright [id number] (Continued) -- Specimen: [id number] Received: 03/16/23 (Continued) Pathological Diagnosis (Continued) D. [...] examination confi (more content not included)... Normal [facility] CBC AUTO DIFFon 01-18-2023 BASO # 0.1 103/ul Normal 0.0-0.1 [facility] Comment on above: Performed By: #### C BC #### [facility] [address] [place] [address] Dr. Vasyl Irving Basophils/100 WBC (Bld) 1.0 % Normal 0.2-2.0 [facility] Comment on above: Performed By: #### C BC #### [facility] [address] [place] [address] Dr. Vasyl Irving EO # 0.1 103/ul Normal 0.0-0.7 [facility] Comment on above: Performed By: #### C BC #### [facility] [address] [place] [address] Dr. Vasyl Irving Eosinophils/100 WBC (Bld) 2.0 % Normal 0.9-7.0 [facility] Comment on above: Performed By: #### C BC #### [facility] [address] [place] [address] Dr. Vasyl Irving Erythrocyte distribution width (RBC) [Ratio] 12.7 % Normal 11.0-15.0 [facility] Comment on above: Performed By: #### C BC #### [facility] [address] [place] [address] Dr. Vasyl Irving Hematocrit (Bld) [Volume fraction] 42.6 % Normal 36.0-48.0 [facility] Comment on above: Performed By: #### C BC #### [facility] [address] [place] [address] Dr. Vasyl Irving Hemoglobin (Bld) [Mass/Vol] 14.2 g/dL Normal 12.0-16.0 [facility] Comment on above: Performed By: #### C BC #### [facility] [address] [place] [address] Dr. Vasyl Irving IG # 0.01 10e3/ul Normal 0.00-0.03 [facility] Comment on above: Performed By: #### C BC #### [facility] [address] [place] [address] Dr. Vasyl Irving IG % 0.2 % Normal 0.0-0.5 [facility] Comment on above: Performed By: #### C BC #### [facility] [address] [place] [address] Dr. Vasyl Irving LYMPH # 2.2 103/ul Normal 1.2-3.8 [facility] Comment on above: Performed By: #### C BC #### [facility] [address] [place] [address] Dr. Vasyl Irving Lymphocytes/100 WBC (Bld) 42.2 % Normal 20.5-60.0 [facility] Comment on above: Performed By: #### C BC #### [facility] [address] [place] [address] Dr. Vasyl Irving MANUAL DIFF REQ NO Normal [facility] Comment on above: Performed By: #### C BC #### [facility] [address] [place] [address] Dr. Vasyl Irving MCH (RBC) [Entitic mass] 31.7 pg Normal 26.7-34.0 [facility] Comment on above: Performed By: #### C BC #### [facility] [address] [place] [address] Dr. Vasyl Irving MCHC (RBC) [Mass/Vol] 33.3 g/dL Normal 29.9-35.2 [facility] Comment on above: Performed By: #### C BC #### [facility] [address] [place] [address] Dr. Vasyl Irving MCV (RBC) [Entitic vol] 95.1 fL Normal 81.0-99.0 [facility] Comment on above: Performed By: #### C BC #### [facility] [address] [place] [address] Dr. Vasyl Irving MONO # 0.3 103/ul Normal 0.3-0.8 [facility] Comment on above: Performed By: #### C BC #### [facility] [address] [place] [address] Dr. Vasyl Irving Monocytes/100 WBC (Bld) 5.9 % Normal 1.7-12.0 [facility] Comment on above: Performed By: #### C BC #### [facility] [address] [place] [address] Dr. Vasyl Irving NEUT # 2.5 103/ul Normal 1.4-6.5 [facility] Comment on above: Performed By: #### C BC #### [facility] [address] [place] [address] Dr. Vasyl Irving Neutrophils/100 WBC (Bld) 48.7 % Normal 43.0-75.0 [facility] Comment on above: Performed By: #### C BC #### [facility] [address] [place] [address] Dr. Vasyl Irving Platelet mean volume (Bld) [Entitic vol] 9.7 fL Normal 9.5-13.5 [facility] Comment on above: Performed By: #### C BC #### [facility] [address] [place] [address] Dr. Vasyl Irving PLT 220 103/ul Normal 150-450 [facility] Comment on above: Performed By: #### C BC #### [facility] [address] [place] [address] Dr. Vasyl Irving RBC 4.48 106/ul Normal 4.20-5.40 [facility] Comment on above: Performed By: #### C BC #### [facility] [address] [place] [address] Dr. Vasyl Irving WBC 5.1 103/ul Normal 4.0-11.0 [facility] Comment on above: Performed By: #### C BC #### [facility] [address] [place] [address] Dr. Vasyl Irving CRPon 01-18-2023 CRP [Mass/Vol] mg/L Normal <=1.0 [facility] Comment on above: Performed By: #### C RP, TSH #### [facility] [address] [place] [address] Dr. Vasyl Irving SED RATE WESTERGRENon 2022 SED RATE 13 mm/hr Normal <=30 [facility] Comment on above: Performed By: #### S EDR #### [facility] [address] [address] [address] Vasyl Irving TSHon 01-18-2023 TSH 1.088 uIU/mL Normal 0.358-3.74 0 [facility] Comment on above: Performed By: #### C RP, TSH #### [facility] [id number] Vasyl Irving MG MAMM SCREEN 3D SERGEI CADon 01-09-2023 MG MAMM SCREEN 3D SERGEI CAD Patient: PATTY WRIGHT Exam Date: 01/09/2023 : 1970 Gender:F Ordering : DR BRIJESH KEATING . Admission #: [id number] Family : Order #: [id number] CLICK HERE TO VIEW EXAM RADIOLOGY REPORT [...] Treatments None Family Cancers None LOCATION: [facility] BREAST COMPOSITION: Heterogeneously dense,which may obscure small [...] Easley M.D. on 01/09/2023 at 12:05 Normal [facility] PAP ACOG PANEL 2: 30 to 65on 11-09-2022 . . Normal [facility] Comment on above: Result Comment: Perf ormed at: WB Performed By: #### 4 [id number] #### [facility] [address] [place] [address] Dr. Vasyl Irving Age Gdln ACOG Testing 30-65 Normal [facility] Comment on above: Performed By: #### 4 [id number] #### [facility] [address] [place] [address] Dr. Vasyl Irving DIAGNOSIS: Comment Normal [facility] Comment on above: Result Comment: NEGA TIVE FOR INTRAEPITHELIAL LESION OR MALIGNANCY. Performed at: WB Performed By: #### 4 [id number] #### [facility] [address] [place] [address] Dr. Vasyl Irving HPV Aptima Negative Normal Negative [facility] Comment on above: Result Comment: This nucleic acid amplification test detects fourteen high-risk HPV types (16,18,31,33,35,39,45,51,52,56,58,59,66,68) without differentiation. Performed at: =G Performed By: #### 4 [id number] #### [facility] [address] [place] [address] Dr. Vasyl Irving HPV Genotype Reflex Comment Normal [facility] Comment on above: Result Comment: Crit eria not met, HPV Genotype not performed. Performed at: WB Performed By: #### 4 [id number] #### [facility] [address] [place] [address] Dr. Vasyl Irving Methodology: Comment Normal [facility] Comment on above: Result Comment: This liquid based ThinPrep(R) pap test was screened with the use of an image guided system. Performed at: WB Performed By: #### 4 [id number] #### [facility] [address] [place] [address] Dr. Vasyl Irving Note: Comment Normal [facility] Comment on above: Result Comment: The Pap smear is a screening test designed to aid in the detection of premalignant and malignant conditions of the uterine cervix. It is not a diagnostic procedure and should not be used as the sole means of detecting cervical cancer. Both false-positive and false-negative reports do occur. . Performed at: WB Performed By: #### 4 [id number] #### [facility] [address] [address] [address] Vasyl Irving Performed by: Comment Normal [facility] Comment on above: Result Comment: Ebenezer Wang, Radiological Engineer (ASCP) Performed at: WB Performed By: #### 4 [id number] #### [facility] [address] [address] [address] Vasyl Irving Specimen adequacy: Comment Normal [facility] Comment on above: Result Comment: Sati sfactory for evaluation. No endocervical cells are present. This is consistent with a history of hysterectomy. Performed at: WB Performed By: #### 4 [id number] #### [facility] [address] [address] [address] Vasyl Irving STOOL CULTUREon 07-29-2022 Campylobacter Culture Final report Normal [facility] Comment on above: Performed By: #### C XSTOOL #### [facility] [address] [address] [address] Vasyl Irving E coli Shiga Toxin EIA Negative Normal Negative [facility] Comment on above: Performed By: #### C XSTOOL #### [facility] [address] [address] [address] Vasyl Irving Result 1 Comment Normal [facility] Comment on above: Result Comment: No S almonella or Shigella recovered. Performed By: #### C XSTOOL #### [facility] [address] [address] [address] Vasyl Irving Result Comment: No C ampylobacter species isolated. Salmonella/Shigel la Screen Final report Normal [facility] Comment on above: Performed By: #### C XSTOOL #### [facility] [address] [address] [address] Vasyl Irving Urinalysis - AUTOMATEDon Appearance (U) thick [employer] Other Bilirubin Ql (U) Negative [employer] Other Color (U) red/orange [facility] Other Glucose Ql (U) 100 [employer] Other Hemoglobin Ql (U) moderate [facility] [employer] Other Ketones Ql (U) trace [employer] Other Leukocyte esterase Test strip Ql (U) large [facility] Other Nitrite Ql (U) Positive [employer] Other pH (U) 5.0 [pH] [facility] Other Protein Ql (U) 100 [employer] Other Specific gravity (U) [Rel density] 1.010 [facility] Other Urobilinogen (U) [Mass/Vol] 2.0 mg/dL [facility] Other Urinalysis - AUTOMATED [facility] Other DIGITAL MAMM SCREENING W/ TO Agudelo 01-04-2021 DIGITAL MAMM SCREENING W/ ANIVAL Patient Name: PATTY WRIGHT STUDY: Digital mammography screening with anival; 01/04/2021 9:17 am ACCESSION NUMBER(S): [id number] ORDERING CLINICIAN: FELY DAMON INDICATION: Screening. COMPARISON: [...] Screening. 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 Vitals Vital Signs Recorded: 15Dec2020 08:54AM Niobvphpzhp90.8 F Tcrtmcbu177 Anzozcake43 Height5 ft 7.5 in Mickvn179 lb 3.65 oz BMI Crmtfagvji12.33 BSA Calculated1.74 LMPhsyter Physical Exam A+O x [...] and is (more content not included)... Normal [facility] [employer] - Office Visiton 04-22 [employer] - Office Visit Chief Complaint PATIENT HERE [...] (V49.89) (Z78.9) Allergies erythromycin Recorded By: Laine Zimmeramn; 10/05/2018 11:10:34 AM Current Meds Dicyclomine HCl - 20 MG Oral Tablet; TAKE 1 TABLET 4 times daily PRN abdominal cramping; Therapy: 46Bdq9751 to (Evaluate:34Qvp9934) Requested for: 49Ehk0220; Last Rx:[id number] Ordered Rx By: Yan Winslow; Dispense: 8 Days ; #:30 Tablet; Refill: 1;For: Epigastric pain; ELADIO = N; Verified Transmission to [facility]ARMACY #6167; Last Updated By: [employer]; 05/06/2020 11:44:32 AM Famotidine 20 MG Oral Tablet; Take 1 tablet twice daily; Therapy: 84Iih0881 to (Evaluate:45Emx0715) Requested for: 28Uww7867; Last Rx:[id number] Ordered Rx By: Yan Winslow; Dispense: 30 Days ; #:60 Tablet; Refill: 1;For: Epigastric pain; ELADIO = N; Verified Transmission to [facility] #6167; Last Updated By: [employer]; 05/06/2020 11:44:29 AM Nortriptyline HCl - 25 MG Oral Capsule; TAKE 1 CAPSULE AT BEDTIME; Therapy: 16Rbw0961 to (Evaluate:19Oct2020) Requested for: 25Oct2019; Last Rx:25Oct2019 Ordered Rx By: Yan Winslow; Dispense: 90 Days ; #:90 Capsule; Refill: 3;For: Health Maintenance; ELADIO = N; Verified Transmission to [facility]/PHARMACY #6167; Last Updated By: [employer]; 10/25/2019 11:30:52 AM Pantoprazole Sodium 40 MG Oral Tablet Delayed Release; TAKE 1 TABLET DAILY Requested for: 03Feb2020; Last Rx:03Feb2020 Ordered Rx By: Yan Winslow; Dispense: 90 Days ; #:90 Tablet; Refill: 3;For: Health Maintenance; ELADIO = N; Verified Transmission to [facility]/PHARM[facility]Y #6167; Last Updated By: [employer]; 02/03/2020 11:36:26 AM Levothyroxine Sodium 100 MCG Oral Tablet; TAKE 1 TABLET DAILY Requested for: 03Feb2020; Last Rx:03Feb2020 Ordered Rx By: Yan Winslow; Dispense: 90 Days ; #:90 Tablet; Refill: 3;For: Hypothyroidism, unspecified type; ELADIO = N; Verified Transmission to [facility]ARMACY #6167; Last Updated By: [employer]; 02/03/2020 11:36:28 AM Oxybutynin (more content not included)... Normal [facility] CBC AND DIFFERENTIALon 05-06 Basophils (Bld) [#/Vol] 0.00 10*3/uL Normal 0.00 - 0.10 [facility] Comment on above: Performed By: #### C BCDF #### [address] [address] Basophils/100 WBC (Bld) 0.7 % Normal 0.0 - 2.0 [facility] Comment on above: Performed By: #### C BCDF #### [address] [address] Eosinophils (Bld) [#/Vol] 0.10 10*3/uL Normal 0.00 - 0.70 [facility] Comment on above: Performed By: #### C BCDF #### [address] [address] Eosinophils/100 WBC (Bld) 2.2 % Normal 0.0 - 6.0 [facility] Comment on above: Performed By: #### C BCDF #### [address] [address] Erythrocyte distribution width (RBC) [Ratio] 13.6 % Normal 11.5 - 14.5 [facility] Comment on above: Performed By: #### C BCDF #### [address] [address] Hematocrit (Bld) [Volume fraction] 43.7 % Normal 36.0 - 46.0 [facility] Comment on above: Performed By: #### C BCDF #### [address] [address] Hemoglobin (Bld) [Mass/Vol] 14.4 g/dL Normal 12.0 - 16.0 [facility] Comment on above: Performed By: #### C BCDF #### [address] [address] Lymphocytes (Bld) [#/Vol] 1.80 10*3/uL Normal 1.20 - 4.80 [facility] Comment on above: Performed By: #### C BCDF #### [address] [address] Lymphocytes/100 WBC (Bld) 30.2 % Normal 13.0 - 44.0 [facility] Comment on above: Performed By: #### C BCDF #### [address] [address] MCHC (RBC) [Mass/Vol] 32.9 g/dL Normal 32.0 - 36.0 [facility] Comment on above: Performed By: #### C BCDF #### [address] [address] MCV (RBC) [Entitic vol] 97 fL Normal 80 - 100 [facility] Comment on above: Performed By: #### C BCDF #### [address] [address] Monocytes (Bld) [#/Vol] 0.30 10*3/uL Normal 0.10 - 1.00 [facility] Comment on above: Performed By: #### C BCDF #### [address] [address] Monocytes/100 WBC (Bld) 5.6 % Normal 2.0 - 10.0 [facility] Comment on above: Performed By: #### C BCDF #### [address] [address] Neutrophils (Bld) [#/Vol] 3.60 10*3/uL Normal 1.20 - 7.70 [facility] Comment on above: Result Comment: Perc ent differential counts (%) should be interpreted in the context of the absolute cell counts (cells/L). Performed By: #### C BCDF #### [address] [address] Neutrophils/100 WBC (Bld) 61.3 % Normal 40.0 - 80.0 [facility] Comment on above: Performed By: #### C BCDF #### [address] [address] Platelets (Bld) [#/Vol] 224 10*3/uL Normal 150 - 450 [facility] Comment on above: Performed By: #### C BCDF #### [address] [address] RBC 4.52 x10E12/L Normal 4.00 - 5.20 [facility] Comment on above: Performed By: #### C BCDF #### [address] [address] WBC (Bld) [#/Vol] 5.8 10*3/uL Normal 4.4 - 11.3 [facility] Comment on above: Performed By: #### C BCDF #### [address] [address] COMPREHENSIVE PANELon 2019 Albumin [Mass/Vol] 4.2 g/dL Normal 3.4 - 5.0 [facility] Comment on above: Performed By: #### C MP #### [address] [address] ALP [Catalytic activity/Vol] 64 U/L Normal 33 - 110 [facility] Comment on above: Performed By: #### C MP #### [address] [address] ALT [Catalytic activity/Vol] 17 U/L Normal 7 - 45 [facility] Comment on above: Result Comment: Sandie ents treated with Sulfasalazine may generate falsely decreased results for ALT. Performed By: #### C MP #### [place] [address] Anion gap [Moles/Vol] 10 mmol/L Normal 10 - 20 [facility] Comment on above: Performed By: #### C MP #### [place] [address] AST [Catalytic activity/Vol] 23 U/L Normal 9 - 39 [facility] Comment on above: Performed By: #### C MP #### [place] [id number] Bilirubin [Mass/Vol] 0.6 mg/dL Normal 0.0 - 1.2 [facility] Comment on above: Performed By: #### C MP #### [place] [address] Calcium [Mass/Vol] 9.3 mg/dL Normal 8.6 - 10.3 [facility] Comment on above: Performed By: #### C MP #### [place] [id number] Chloride [Moles/Vol] 103 mmol/L Normal 98 - 107 [facility] Comment on above: Performed By: #### C MP #### [address] [address] Creatinine [Mass/Vol] 0.55 mg/dL Normal 0.50 - 1.05 [facility] Comment on above: Performed By: #### C MP #### [place] [id number] GFR- AM. >60 Normal >60 [facility] Comment on above: Result Comment: CALC ULATIONS OF ESTIMATED GFR ARE PERFORMED USING THE MDRD STUDY EQUATION FOR THE IDMS-TRACEABLE CREATININE METHODS. CLIN CHEM 2007;53:766-72 Performed By: #### C MP #### [address] [address] GFR-NON AM. >60 Normal >60 [facility] Comment on above: Performed By: #### C MP #### [address] [address] Glucose [Mass/Vol] 58 mg/dL Low 74 - 99 [facility] Comment on above: Performed By: #### C MP #### [address] [address] HCO3 (Bld) [Moles/Vol] 30 mmol/L Normal 21 - 32 [facility] Comment on above: Performed By: #### C MP #### [place] [id number] Potassium [Moles/Vol] 4.0 mmol/L Normal 3.5 - 5.3 [facility] Comment on above: Performed By: #### C MP #### [address] [address] Protein [Mass/Vol] 6.7 g/dL Normal 6.4 - 8.2 [facility] Comment on above: Performed By: #### C MP #### [address] [address] Sodium [Moles/Vol] 139 mmol/L Normal 136 - 145 [facility] Comment on above: Performed By: #### C MP #### [address] [address] Urea nitrogen [Mass/Vol] 14 mg/dL Normal 6 - 23 [facility] Comment on above: Performed By: #### C MP #### [address] [address] LIPASEon 05-06-2020 Lipase [Catalytic activity/Vol] 22 U/L Normal 9 - 82 [facility] Comment on above: Result Comment: Francheska puncture immediately after or during the administration of Metamizole may lead to falsely low results. Testing should be performed immediately prior to Metamizole dosing. Performed By: #### L IPAS #### [facility] [address] [place] [address] Office Visit (Primary Care T xt/Forms)on 05-06-2020 Follow-up visit Diagnoses/Problems Assessed Epigastric pain (789.06) (R10.13) Fatigue (780.79) (R53.83) Nausea in adult (787.02) (R11.0) Orders Epigastric pain Start: Dicyclomine HCl - 20 MG Oral Tablet; TAKE 1 TABLET 4 times daily PRN abdominal cramping Complete Blood Count + Differential; Status:Active; Requested for:[id number]; Start: Famotidine 20 MG Oral Tablet; Take 1 tablet twice daily Comprehensive Metabolic Panel; Status:Active; Requested for:[id number]; Lipase, Serum; Status:Active; Requested for:[id number]; Epigastric pain, Nausea in adult Gastroenterology Referral Evaluation and Treatment Evaluate AND Treat Status: Active Requested for: [id number] Chief Complaint nausea x 2 weeks but [...] Allergies Medication erythromycin Vitals Vital Signs Recorded: [id number] 11:21AM Temperature: 97.3 F Heart Rate: 70 [...] content not included)... Normal [facility] EVENT PLANNING INTERN - Office Visiton 03-21 EVENT PLANNING INTERN - Office Visit Chief Complaint Patient is [...] Maintenance; ELADIO = N; Verified Transmission to [facility] #[id number]; Last Updated By: [employer]; 10/25/2019 11:30:52 AM Oxybutynin Chloride 5 MG Oral Tablet; Take 1 tablet daily Requested for: 03Feb2020; Last Rx:03Feb2020 Ordered Rx By: Yan Winslow; Dispense: 90 Days ; #:90 Tablet; Refill: 3;For: Health Maintenance; ELADIO = N; Verified Transmission to [facility]ARM[facility] #6167; Last Updated By: [employer]; 02/03/2020 11:36:38 AM Pantoprazole Sodium 40 MG Oral Tablet Delayed Release; TAKE 1 TABLET DAILY Requested for: 03Feb2020; Last Rx:03Feb2020 Ordered Rx By: Yan Winslow; Dispense: 90 Days ; #:90 Tablet; Refill: 3;For: Health Maintenance; ELADIO = N; Verified Transmission to [facility] #6167; Last Updated By: [employer]; 02/03/2020 11:36:26 AM Levothyroxine Sodium 100 MCG Oral Tablet; TAKE 1 TABLET DAILY Requested for: 03Feb2020; Last Rx:[id number] Ordered Rx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 [facility] 05-23-2024 08:08-0400 Respiratory rate 16 /min [facility] 05-23-2024 08:08-0400 SaO2% (BldA) [Mass fraction] 96 % [facility] 05-23-2024 08:08-0400 Systolic blood pressure 102 mm[Hg] [facility] 05-09-2024 10:27-0400 Blood Pressure Location FREYA JOHNSON [facility] 05-09-2024 10:27-0400 Diastolic blood pressure 52 mm[Hg] FREYA JOHNSON [facility] 05-09-2024 10:27-0400 Heart rate 74 /min FREYA JOHNSON [facility] 05-09-2024 10:27-0400 Systolic blood pressure 101 mm[Hg] FREYA JOHNSON [facility] 04-10-2024 09:17-0400 Body height 171.45 cm [facility] 04-10-2024 09:17-0400 Body mass index (BMI) [Ratio] 23.6 kg/m2 [facility] 04-10-2024 09:17-0400 Body weight 69.39 kg [facility] 04-10-2024 09:17-0400 Diastolic blood pressure 71 mm[Hg] [facility] 04-10-2024 09:17-0400 Heart rate 73 /min [facility] 04-10-2024 09:17-0400 Systolic blood pressure 104 mm[Hg] [facility] 07-24-2023 14:45-0500 Body height 171.45 cm Freya Ponce Other [facility] Other 07-24-2023 14:45-0500 Body mass index (BMI) [Ratio] 22.53 kg/m2 Freya Tranr Other [facility] Other 07-24-2023 14:45-0500 Body weight 66.23 kg Freya Contrerasacher Other [facility] Other 07-24-2023 14:45-0500 Diastolic blood pressure 62 mm[Hg] Freya Dianeacher Other [facility] Other 07-24-2023 14:45-0500 SaO2% (BldA) [Mass fraction] 98 % Freya Dianeacher Other [facility] Other 07-24-2023 14:45-0500 Systolic blood pressure 104 mm[Hg] Freya Dianeacher Other [facility] Other 06-30-2023 09:00-0500 Body height 171.45 cm Freya Dianeandreyr Other [facility] Other 06-30-2023 09:00-0500 Body mass index (BMI) [Ratio] 22.68 kg/m2 Freya Dianeacher Other [facility] Other 06-30-2023 09:00-0500 Body weight 66.68 kg Freya Contrerasacher Other [facility] Other 06-30-2023 09:00-0500 Diastolic blood pressure 64 mm[Hg] Freya Dianeacher Other [facility] Other 06-30-2023 09:00-0500 SaO2% (BldA) [Mass fraction] 97 % Freya Ponce Other [facility] Other 06-30-2023 09:00-0500 Systolic blood pressure 102 mm[Hg] Freya Ponce Other [facility] Other 05-10-2023 13:00-0400 Body height 171.45 cm Imad Asaad Other [facility] Other 05-10-2023 13:00-0400 Body mass index (BMI) [Ratio] 23.07 kg/m2 Imad Asaad Other [facility] Other 05-10-2023 13:00-0400 Body weight 67.81 kg Imad Asaad Other [facility] Other 05-10-2023 13:00-0400 Diastolic blood pressure 83 mm[Hg] Imad Asaad Other [facility] Other 05-10-2023 13:00-0400 Systolic blood pressure 130 mm[Hg] Imad Asaad Other [facility] Other 04-26-2023 13:34-0400 Blood Pressure Location FREYA ALEX [facility] 04-26-2023 13:34-0400 Diastolic blood pressure 76 mm[Hg] FREYA ALEX [facility] 04-26-2023 13:34-0400 Heart rate 76 /min FREYA ALEX [facility] 04-26-2023 13:34-0400 Respiratory rate 16 /min FREYA ALEX [facility] 04-26-2023 13:34-0400 Systolic blood pressure 112 mm[Hg] FREYA ALEX [facility] 09-09-2022 09:30-0500 Body height 171.45 cm Xiomara Aaron Other [facility] Other 09-09-2022 09:30-0500 Body mass index (BMI) [Ratio] 23.61 kg/m2 Xiomara Aaron Other [facility] Other 09-09-2022 09:30-0500 Body weight 69.4 kg Xiomara Aaron Other [facility] Other 09-09-2022 09:30-0500 Diastolic blood pressure 72 mm[Hg] Xiomara Aaron Other [facility] Other 09-09-2022 09:30-0500 SaO2% (BldA) [Mass fraction] 98 % Xiomara Aaron Other [facility] Other 09-09-2022 09:30-0500 Systolic blood pressure 126 mm[Hg] Xiomara Aaron Other [facility] Other 12-08-2021 09:21-0400 Blood Pressure Location FREYA JOHNSON [facility] 12-08-2021 09:21-0400 Diastolic blood pressure 77 mm[Hg] FREYA ALEX [facility] 12-08-2021 09:21-0400 Heart rate 72 /min FREYA BENTLEYRY [facility] 12-08-2021 09:21-0400 Systolic blood pressure 111 mm[Hg] FREYA JOHNSON [facility] 11-01-2021 11:45-0400 Body height 171.45 cm Shan Ranjitgorge Other [facility] Other 11-01-2021 11:45-0400 Body mass index (BMI) [Ratio] 22.53 kg/m2 Shan Kerr Other [facility] Other 11-01-2021 11:45-0400 Body weight 66.23 kg Shan Kerr Other [facility] Other 11-01-2021 11:45-0400 Diastolic blood pressure 69 mm[Hg] Shan Usha Other [facility] Other 11-01-2021 11:45-0400 Systolic blood pressure 107 mm[Hg] Shan Usha Other [facility] Other 10-17-2021 14:05-0500 Body height 171.45 cm Blaire Collier Other [facility] Other 10-17-2021 14:05-0500 Body mass index (BMI) [Ratio] 23.45 kg/m2 Blaire Collier Other [facility] Other 10-17-2021 14:05-0500 Body temperature 97.8 [degF] Blaire Collier Other [facility] Other 10-17-2021 14:05-0500 Body weight 68.95 kg Blaire Collier Other [facility] Other 10-17-2021 14:05-0500 Diastolic blood pressure 63 mm[Hg] Blaire Collier Other [facility] Other 10-17-2021 14:05-0500 Respiratory rate 18 /min Blaire Collier Other [facility] Other 10-17-2021 14:05-0500 SaO2% (BldA) [Mass fraction] 99 % Blaire Collier Other [facility] Other 10-17-2021 14:05-0500 Systolic blood pressure 99 mm[Hg] Blaire Collier Other [facility] Other 06-11-2019 12:08-0400 BMI (Body Mass Index) 22.84 kg/m2 [facility] Work Phone: 06-11-2019 12:08-0400 Body weight 67.13 kg [facility] Work Phone: 06-11-2019 12:08-0400 BP Diastolic 62 mm[Hg] [facility] Work Phone: 06-11-2019 12:08-0400 BP Systolic 110 mm[Hg] Saba Jenkins [facility] Work Phone: 06-11-2019 12:08-0400 BSA (Body Surface Area) 1.79 m2 [facility] Work Phone: 06-11-2019 12:08-0400 Height 171.45 cm Saba [facility] Work Phone: 06-11-2019 12:08-0400 Pulse (Heart Rate) 76 /min Saba Jenkins [facility] Work Phone: 06-03-2019 12:41-0400 BMI (Body Mass Index) 22.49 kg/m2 Yna Winslow [facility] Work Phone: 06-03-2019 12:41-0400 Body weight 65 kg Yan Winslow [employer] [facility] Work Phone: 06-03-2019 12:41-0400 BP Diastolic 68 mm[Hg] Yan Winslow [employer] [facility] Work Phone: Comment on above: Location: LUE; 06-03-2019 12:41-0400 BP Systolic 110 mm[Hg] Yan Winslow [employer] [facility] Work Phone: Comment on above: Location: LUE; 06-03-2019 12:41-0400 BSA (Body Surface Area) 1.75 m2 Yan Winslow [employer] [facility] Work Phone: 06-03-2019 12:41-0400 Height 170 cm Yan Winslow [employer] Work Phone: 06-03-2019 12:41-0400 Pulse (Heart Rate) 77 /min Yan Winslow [employer] [facility] Work Phone: Encounters Encounter Date Encounter Type Care Provider Facility Start: 06-19-2024 End: 06-19-2024 Gurpreetboo flowscharles Gallagher MD Work Phone: [facility] Start: 06-19-2024 End: 06-19-2024 Bamboo flowscharles Gallagher MD Work Phone: [facility] Start: 06-19-2024 End: 06-19-2024 Office outpatient new 45 minutes Brianna Gallagher MD Work Phone: [facility] Comment on above: Chronic sinusitis, u nspecified location (Primary Dx); Allergic rhinitis, unspecified seasonality, unspecified trigger Start: 05-23-2024 End: 05-23-[address] [facility] Work Phone: Start: 05-23-2024 End: 05-23-2024 Patient encounter procedure [facility] Work Phone: Start: 05-09-2024 End: 05-09-2024 ambulatory PA-C FREYA JOHNSON Facility:[facility] Start: 05-09-2024 End: 05-09-2024 Patient encounter procedure FREYA JOHNSON [facility] Start: 04-10-2024 End: 04-10-[address] [facility] Work Phone: Start: 04-10-2024 End: 04-10-2024 Patient encounter procedure [facility] Work Phone: Start: 12-25-2023 End: 12-26-2023 ambulatory [facility] Start: 11-08-2023 End: 11-08-2023 ambulatory ANA INGRAM Not Available Start: 08-07-2023 End: 08-07-2023 ambulatory Xiomara Aaron Other [facility] Other Start: 08-07-2023 Telephone encounter Xiomara Aaron [facility] Start: 07-24-2023 End: 07-24-2023 ambulatory Freya Ponce Other [facility] Other Start: 07-24-2023 Office outpatient vi sit 15 minutes Freya Ponce [facility] Start: 07-05-2023 End: 07-05-2023 ambulatory Freya Ponce Other [facility] Other Start: 07-05-2023 Telephone encounter Freya Roman [facility] Start: 06-30-2023 End: 06-30-2023 ambulatory Freya Ponce Other [facility] Other Start: 06-30-2023 Office outpatient vi sit 15 minutes Freya Ponce [facility] Start: 05-10-2023 End: 05-10-2023 ambulatory Imad Asaad Other [facility] Other Start: 05-10-2023 Office outpatient ne w 45 minutes Imad Asaad [facility] Start: 04-26-2023 End: 04-26-2023 Patient encounter procedure FREYA JOHNSON [facility] Start: 03-24-2023 End: 03-24-2023 ambulatory Imad Asaad Other [facility] Other Start: 03-24-2023 Telephone encounter Imad Asaad [facility] Start: 03-16-2023 End: 03-16-2023 ambulatory Xiomara Aaron Facility:[facility] Start: 01-30-2023 End: 01-30-2023 ambulatory Imad Asaad Other [facility] Other Start: 01-30-2023 Telephone encounter Imad Asaad [facility] Start: 01-18-2023 ambulatory IMAD ASAAD Facility:[facility] Start: 01-09-2023 End: 01-10-2023 ambulatory IMAD ASAAD Facility:[facility] Start: 11-01-2022 End: 11-01-[address] BRIJESH KEATING . Facility:[facility] Start: 09-09-2022 End: 09-09-2022 ambulatory Xiomara Aaron Other [facility] Other Start: 09-09-2022 Office outpatient vi sit 15 minutes Xiomara Aaron [facility] Start: 07-23-2022 End: 07-24-[address] XIOMARA AARON Facility: Start: 07-21-2022 Encounter for cervic al smear to confirm findings of recent normal smear following initial abnormal smear Imad Asaad Other [facility] Other Start: 07-21-2022 Gynecological examination normal Imad Asaad Other [facility] Other Start: 07-21-2022 History of abnormal cervical Papanicolaou smear Imad Asaad Other [facility] Other Start: 12-16-2021 End: 12-16-2021 ambulatory Shan Kerr Other [facility] Other Start: 12-16-2021 Telephone encounter Shan Kerr [facility] Start: 12-14-2021 End: 12-14-2021 ambulatory Shan Kerr Other [facility] Other Start: 12-14-2021 Telephone encounter Shan Kerr [facility] Start: 12-08-2021 End: 12-08-2021 Patient encounter procedure FREYA JOHNSON [facility] Start: 11-19-2021 End: 11-19-2021 ambulatory Shan Kerr Other [facility] Other Start: 11-19-2021 Telephone encounter Shan Kerr [facility] Start: 11-01-2021 End: 11-01-2021 ambulatory Shan Kerr Other [facility] Other Start: 11-01-2021 Office outpatient vi sit 25 minutes Shan Kerr [facility] Start: 10-20-2021 End: 10-20-2021 ambulatory Blaire Collier Other [facility] Other Start: 10-20-2021 Telephone encounter Blaire Collier [facility] [address] Start: 10-17-2021 End: 10-17-2021 ambulatory Blaire Collier Other [facility] [employer] Other Start: 10-17-2021 Office outpatient vi sit 15 minutes Blaire Collier [facility] Start: 01-26-2021 Rx Change Melvin Roldan DO Work Phone: [facility] [address] Work Phone: Start: 01-25-2021 AUDIT Chance Lauren Work Phone: [facility] [address] Work Phone: Start: 05-19-2020 Patient encounter procedure Fely Damon [facility] [address] Work Phone: Start: 05-06-2020 Patient encounter procedure Fely Damon [facility] [address] Work Phone: Start: 04-02-2020 Patient encounter procedure Fely Damon [facility] [address] Work Phone: Start: 02-03-2020 Patient encounter procedure [facility] Damon [facility] [address] Work Phone: Start: 10-25-2019 Patient encounter procedure Fely Damon [facility] [address] Work Phone: Start: 06-11-2019 Patient encounter procedure Saba Jenkins -[facility] Work Phone: Start: 06-03-2019 Patient encounter procedure Yan Nayla -[facility] Work Phone: Start: 05-29-2019 Patient encounter procedure Yan Nayla -[facility] Work Phone: Start: 05-29-2019 Telemedicine consultation with patient Yan Winslow [facility] Work Phone: Start: 12-05-2018 Patient encounter procedure Yan Nayla [facility] Work Phone: Start: 11-27-2018 Patient encounter procedure Yan Winslow -[facility] Work Phone: Start: 11-07-2018 Patient encounter procedure Yan iWnslow -[facility] Work Phone: Start: 12-10-2013 End: 12-10-2013 Telephone encounter Larrylacey Allen Work Phone: Neurology Comment on above: Results Cancer cervix - screening done Chance Rao MD Work Phone: [address] Work Phone: Comment on above: 05/19/2020; ASCUS, HP V POSITIVE12/25/2018; UNSATISFACTORY; Procedures Date Procedure Procedure Detail Performing Clinician Start: 01-16-2024 Mammography Brianna castañeda MD Work Phone: Start: 11-01-2022 Microscopic observat ion [Identifier] in Cervix by Cyto stain Brianna Gallagher MD Work Phone: Start: 10-27-2021 Screening for malign ant neoplasm of breast Imad Asaad Other Start: 11-06-2019 Colonoscopy Brianna castañeda MD Work Phone: Start: 06-03-2019 Assay of lipase Yan Winslow Start: 06-03-2019 Blood count complete auto&auto difrntl wbc Yan Winslow Start: 06-03-2019 Comprehensive metabo lic 2000 panel Yan Winslow Start: 06-03-2019 CT Abdomen and Pelvi s with Contrast Yan Winslow Start: 06-03-2019 Giardia/Cryptosporidium Yan Winslow Start: 06-03-2019 Iadna-dna/rna gi pth gn multiplex probe tq 6-11 Yanjennifer Winslow Start: 06-03-2019 Inf agent det nuclei c acid clostridium amp probe Yanjennifer Winslow Bilateral salpingect kamlesh with oophorectomy Yan Furness Dilation and curettage Patri ck Furness Dilation and curetta ge of uterus FREYA JOHNSON H/O: hysterectomy FREYA MACKEY History of tonsillectomy JUAN JOSE JOHNSON Hysterectomy Yan Winslow Operative procedure on ankle Yan Winslow Procedure on foot FREYA MACKEY Tonsillectomy Yan Strickland s Plan of Treatment Date Care Activity Detail Author Start: 11-05-2029 Screening for malign ant neoplasm of colon [facility] Start: 11-01-2025 Screening for malign ant neoplasm of cervix [facility] Start: 01-15-2025 Screening for malign ant neoplasm of breast Mammogram [facility] Start: 06-19-2024 End: 06-19-2024 Patient encounter procedure 06/19/2024 10:30 AM EDT Office Visit [facility] [address] [facility] [address] [place] [id number] Brianna Gallagher MD [address] [facility] [address] [place] [address] Arrived [facility] Comment on above: Arrived Start: 05-23-2024 Patient referral [facility] Work Phone: Start: 04-21-2024 Influenza vaccination Influenza Vacc ine (#1) [facility] Start: 12-21-2021 Patient encounter procedure ANNUAL, Provider: Fely Damon, Status: Pen, Time: 9:00 AM [address] Work Phone: Start: 04-21-2021 Influenza vaccination INFLUENZ A (Season Ended) [facility] Start: 2019 Screening for malign ant neoplasm of colon [facility] Start: 2019 SHINGRIX VACCINE (1 of 2) SHINGRIX VACCINE (1 of 2) [facility] Start: 2014 DIABETES SCREEN DIABETES SCREEN [facility] Start: 2014 LIPID SCREEN LIPID SCREEN [facility] Start: 2009 Mammography MAMMOGRAM [facility] Start: 1999 HPV TESTING HPV TESTING [facility] Start: 1999 Screening for malign ant neoplasm of cervix HPV/Cotest [facility] Start: 1990 PAP TESTING PAP TESTING [facility] Start: 1988 Urine microalbumin profile DTAP,TDAP,TD (1 - Tdap) [facility] Start: 1987 HEPATITIS C SCREENING HEPATITIS C SC FELIBERTO [facility] Start: 1987 HIV SCREENING HIV SCREENING [facility] Start: 1981 Adult depression screening assessment DEPRESSION SCREENING [facility] Start: 1969 Screening for malign ant neoplasm of colon [facility] Patient referral [facility] Work Phone: Immunizations Immunization Date Immunization Notes Care Provider Fa cility 04-26-2023 Influenza, injectable, Madin [place] Canine Kidney, preservative free, quadrivalent Brianna Gallagher MD Work Phone: [facility] 04-26-2023 influenza virus vaccine, unspecified formulation Brianna Gallagher MD Work Phone: [facility] 05-30-2022 influenza virus vaccine, split virus (incl. purified surface antigen) Imad Asaad Other [facility] Other 05-30-2022 influenza virus vaccine, unspecified formulation [facility] 05-30-2022 Influenza, injectable, Madin Lisbeth Canine Kidney, preservative free, quadrivalent Brianna Gallagher MD Work Phone: [facility] 05-30-2022 Prevnar 20 Imad Asaad Other [facility] 03-01-2021 zoster vaccine recombinant Brianna Gallagher MD Work Phone: [facility] 12-17-2020 SARS-CoV-2 (COVID-19 ) mRNA BNT-162b2 vax [employer] [facility] 11-25-2020 SARS-CoV-2 (COVID-19 ) mRNA BNT-162b2 vax FREYA JOHNSON [facility] 11-12-2008 hepatitis B vaccine, pediatric or pediatric/adolescent dosage Brianna Gallagher MD Work Phone: [facility] 04-15-2008 hepatitis B vaccine, pediatric or pediatric/adolescent dosage Brianna Gallagher MD Work Phone: [facility] 03-18-2008 hepatitis B vaccine, pediatric or pediatric/adolescent dosage Brianna Gallagher MD Work Phone: [facility] 03-18-2008 measles, mumps and rubella virus vaccine Brianna Gallagher MD Work Phone: [facility] 03-18-2008 tetanus toxoid, reduced diphtheria toxoid, and acellular pertussis vaccine, adsorbed Brianna Gallagher MD Work Phone: [facility] 04-06-1976 trivalent poliovirus vaccine, live, oral Brianna Gallagher MD Work Phone: [facility] 04-09-1974 diphtheria, tetanus toxoids and pertussis vaccine Brianna Gallagher MD Work Phone: [facility] 07-06-1971 diphtheria, tetanus toxoids and pertussis vaccine Brianna Gallagher MD Work Phone: [facility] 07-06-1971 trivalent poliovirus vaccine, live, oral Brianna Gallagher MD Work Phone: [facility] 1969 diphtheria, tetanus toxoids and pertussis vaccine Brianna Gallagher MD Work Phone: [facility] 1969 trivalent poliovirus vaccine, live, oral Brianna Gallagher MD Work Phone: [facility] 1969 diphtheria, tetanus toxoids and pertussis vaccine Brianna Gallagher MD Work Phone: [facility] 1969 diphtheria, tetanus toxoids and pertussis vaccine Brianna Gallagher MD Work Phone: [facility] 1969 trivalent poliovirus vaccine, live, oral Brianna Gallagher MD Work Phone: [facility] NEGATED: Highlighted row has not occurred!12-08-2021 influenza virus vaccine, unspecified formulation FREYA JOHNSON [facility] Payers Date Payer Category Payer Self-pay 2021 Unknown [id number] 2020 [facility] BCBS [id number] 2011 Private Health Insurance [employer] OAP [id number] 2011-2015 PPO [id number] 2008 Self-pay SELF PAY HSP/MED ICAL SELF PAY [id number] 2008-2015 SELF PAY Indemnity [id number] 1969 Unknown [id number] 1969 Unknown [id number] 1969 Unknown [id number] 1969 Unknown [id number] 1969 Unknown [id number] 1969 Unknown [id number] 1969 Unknown [id number] 1959 [facility] [place]93 [id number] Unknown Unknown [id number] Social History Date Type Detail Facility Assertion Unknown if ever smoked [facility] Work Phone: Start: 08-01-2013 End: 06-19-2024 Tobacco smoking status NHIS Never smoker [facility] Start: 08-01-2013 End: 06-19-2024 Alcohol intake Current drinker of alcohol (finding) [facility] Start: 07-30-2012 Alcohol Comment [facility] Start: 1970 Sex Assigned At Not on file [facility] Start: 11-06-2023 End: 06-19-2024 Non-smoker Non-smoker [facility] [address] [place] Work Phone: Tobacco smoking status Never [facility] Start: 11-06-2023 End: 06-19-2024 Sex Assigned At Female [facility] [employer] Other Start: 1970 Sex [address] Female [facility] Start: 05-30-2024 Alcoholic beverage intake Ex-drinker (finding) [facility] Start: 11-06-2023 Alcohol Comment occasional [facility] Start: 06-19-2024 Tobacco use and exposure Smokeless tobacco non-user [facility] Functional Status Date Assessment Result Facility 05-09-2024 Functional Status N/A [facility] 04-26-2023 Functional Status N/A [facility] NEGATED: Highlighted row Functional performance Functional status health issues are not documented [facility] Work Phone: Mental Status Date Assessment Result Facility NEGATED: Highlighted row Cognitive function [Interpretation] Cognitive status health issues are not documented Disease [facility] Work Phone: Clinical Notes 12-12-2013 to 06-19-2024 Brianna Gallagher MD - 06/19/2024 10:30 AM EDT Note Date & Type Note Facility 06-19-2024 History of Present illness Narrative Subjective Patient ID: Patty Wright is a 54 y.o. female who presents for Dry cough Pt reports a near life-long h/o severe nasal congestion and sinus problems. Causing difficulty with sleep. Tx with claratin and flonase. Using flonase daily. No sinus imaging. No decongestant sprays. No sinonasal surgery. Remote allergy eval Review of Systems All other systems reviewed and are negative. Family History Problem Relation Name Age of Onset No Known Problems Mother No Known Problems Father Active Ambulatory Problems Diagnosis Date Noted Chronic sinusitis 06/18/2024 Bacterial sinusitis 06/18/2024 Asymptomatic menopausal state 10/27/2021 Allergic rhinitis 06/18/2024 Abdominal pain 06/18/2024 Resolved Ambulatory Problems Diagnosis Date Noted No Resolved Ambulatory Problems Past Medical History: Diagnosis Date Abdominal bloating BMI 23.0-23.9, adult Breast cancer screening by mammogram Cervical high risk HPV (human papillomavirus) test positive Encounter by telehealth for suspected COVID-19 Encounter for gynecological examination (general) (routine) without abnormal findings Gastro-esophageal reflux disease without esophagitis Hiatal hernia Hypothyroidism (CMS/HCC) Irritable bowel syndrome (IBS) Other fatigue Overactive bladder Pap smear of cervix to confirm normal smear following abnormal smear Post menopausal syndrome RUQ pain Screening for human papillomavirus (HPV) UTI symptoms Vitamin D deficiency Past Surgical History: Procedure Laterality Date ADENOIDECTOMY DILATION AND CURETTAGE OF UTERUS DIAGNOSTIC LAPAROSCOPY a few FOOT SURGERY right reconstructive surgery HYSTERECTOMY LAPAROSCOPY REPAIR HIATAL HERNIA 06/21/2023 TONSILLECTOMY Allergies Allergen Reactions Erythromycin GI intolerance Current Outpatient Medications on File Prior to Visit Medication Sig Dispense Refill albuterol HFA 90 mcg/act inhaler Inhale 1 puff if needed for wheezing ciprofloxacin (Cipro) 500 MG tablet Take 1 tablet (500 mg) by mouth in the morning and 1 tablet (500 mg) before bedtime. Do all this for 7 days. 14 tablet 0 Cyanocobalamin (Vitamin B 12) 100 MCG lozenge Take 1 each by mouth Daily estradiol (Estrace) 1 MG tablet TAKE 1 TABLET BY MOUTH EVERY DAY FOR 90 DAYS 90 tablet 3 levothyroxine (Synthroid, Levoxyl) 88 MCG tablet Take 88 mcg by mouth in the morning. Take before meals. Multiple Vitamins-Minerals (MULTIVITAMIN ADULT, MINERALS, PO) Take 1 each by mouth Daily oxybutynin XL (Ditropan-XL) 5 MG 24 hr tablet Take 5 mg by mouth Daily pantoprazole (ProtoNix) 40 MG EC tablet Take 40 mg by mouth Daily [DISCONTINUED] alendronate (Fosamax) 70 MG tablet Take 1 tablet (70 mg) by mouth every 7 (seven) days Take in the morning with a full glass of water, on an empty stomach, and do not take anything else by mouth or lie down for the next 30 min. 4 tablet 11 [DISCONTINUED] ammonium lactate (Amlactin) 12 % cream Apply topically Daily 140 g 3 [DISCONTINUED] nitrofurantoin, macrocrystal-monohydrate, (Macrobid) 100 MG capsule Take 100 mg by mouth if needed [DISCONTINUED] Vagifem 10 MCG tablet vaginal tablet INSERT 1 TABLET (10 MCG) VAGINALLY TWO TIMES A WEEK 24 tablet 1 No current facility-administered medications on file prior to visit. Objective Last Recorded Vitals Vitals: 06/19/24 1041 BP: 109/76 ENT Physical Exam Constitutional Appearance: patient appears well-developed, well-nourished and well-groomed, Head and Face Appearance: head appears normal and face appears atraumatic; Ear Ear Canals: right ear canal normal; left ear canal normal; Tympanic Membranes: right tympanic membrane normal; left tympanic membrane normal; Nose External Nose: nares patent bilaterally; external nose normal; Internal Nose: septum normal; Oral Cavity/Oropharynx Tongue: normal; Oral mucosa: normal; Hard palate: normal; Soft palate: normal; Tonsils: normal; Neck Neck: neck normal; neck palpation normal; Thyroid: thyroid normal; Respiratory Inspection: breathing unlabored; normal breathing rate; Auscultation: breath sounds are clear; Cardiovascular Inspection: extremities are warm and well perfused; no peripheral edema present; Auscultation: regular rate and rhythm; Assessment/Plan Diagnoses and all orders for this visit: Chronic sinusitis, unspecified location I will check a sinus plain film series and tx with a one mo aggressive sinus regimen, including 4 weeks abx, nasal steroids, prednisone, antihistamines, and BID saline irrigations. If sinus sx persist, and pt has followed regimen, in one month I will obtain an IG CT sinus to evaluate for surgical pathology and plan surgical tx. Allergic rhinitis, unspecified seasonality, unspecified trigger - montelukast (Singulair) 10 MG tablet; Take 1 tablet (10 mg) by mouth at bedtime Check RAST documented in this encounter [facility] 05-09-2024 Hospital Discharge instructions Patient Education 05/09/2024 10:49:25 Fiber Content in Foods Fiber Content in Foods Fiber is a substance that is found in plant foods, such as fruits, vegetables, whole grains, nuts, seeds, and beans. As part of your treatment and recovery plan, your health care provider may recommend that you eat foods that have specific amounts of dietary fiber. Some conditions may require a high-fiber diet while others may require a low-fiber diet. This sheet gives you information about the dietary fiber content of some common foods. Your health care provider will tell you how much fiber you need in your diet. If you have problems or questions, contact your health care provider or dietitian. What foods are high in fiber? Fruits Blackberries or raspberries (fresh) cup (75 g) has 4 g of fiber. Pear (fresh) 1 medium (180 g) has 5.5 g of fiber. Prunes (dried) 6 to 8 pieces (57 76 g) has 5 g of fiber. Apple with skin 1 medium (182 g) has 4.8 g of fiber. Guava 1 cup (128 g) has 8.9 g of fiber. Vegetables Peas (frozen) cup (80 g) has 4.4 g of fiber. Potato with skin (baked) 1 medium (173 g) has 4.4 g of fiber. Pumpkin (canned) cup (122 g) has 5 g of fiber. [place] sprouts (cooked) cup (78 g) has 4 g of fiber. Sweet potato cup mashed (124 g) has 4 g of fiber. Winter squash 1 cup cooked (205 g) has 5.7 g of fiber. Grains Bran cereal cup (31 g) has 8.6 g of fiber. Bulgur (cooked) cup (70 g) has 4 g of fiber. Quinoa (cooked) 1 cup (185 g) has 5.2 g of fiber. Popcorn 3 cups (375 g) popped has 5.8 g of fiber. Spaghetti, whole wheat 1 cup (140 g) has 6 g of fiber. Meats and other proteins [place] beans (cooked) cup (90 g) has 7.7 g of fiber. Lentils (cooked) cup (90 g) has 7.8 g of fiber. Kidney beans (canned) cup (92.5 g) has 5.7 g of fiber. Soybeans (canned, frozen, or fresh) cup (92.5 g) has 5.2 g of fiber. Baked beans, plain or vegetarian (canned) cup (130 g) has 5.2 g of fiber. Garbanzo beans or chickpeas (canned) cup (90 g) has 6.6 g of fiber. Black beans (cooked) cup (86 g) has 7.5 g of fiber. White beans or navy beans (cooked) cup (91 g) has 9.3 g of fiber. The items listed above may not be a complete list of foods with high fiber. Actual amounts of fiber may be different depending on processing. Contact a dietitian for more information. What foods are moderate in fiber? Fruits Banana 1 medium (126 g) has 3.2 g of fiber. Melon 1 cup (155 g) has 1.4 g of fiber. [place] 1 small (154 g) has 3.7 g of fiber. Raisins cup (40 g) has 1.8 g of fiber. Applesauce, sweetened cup (125 g) has 1.5 g of fiber. Blueberries (fresh) cup (75 g) has 1.8 g of fiber. Strawberries (fresh, sliced) 1 cup (150 g) has 3 g of fiber. Cherries 1 cup (140 g) has 2.9 g of fiber. Vegetables Broccoli (cooked) cup (77.5 g) has 2.1 g of fiber. Carrots (cooked) cup (77.5 g) has 2.2 g of fiber. [place] (canned or frozen) cup (82.5 g) has 2.1 g of fiber. Potatoes, mashed cup (105 g) has 1.6 g of fiber. Tomato 1 medium (62 g) has 1.5 g of fiber. Green beans (canned) cup (83 g) has 2 g of fiber. Squash, winter cup (58 g) has 1 g of fiber. Sweet potato, baked 1 medium (150 g) has 3 g of fiber. Cauliflower (cooked) 1/2 cup (90 g) has 2.3 g of fiber. Grains Long-grain brown rice (cooked) 1 cup (196 g) has 3.5 g of fiber. Bagel, plain one 4-inch (10 cm) bagel has 2 g of fiber. Instant oatmeal cup (120 g) has about 2 g of fiber. Macaroni noodles, enriched (cooked) 1 cup (140 g) has 2.5 g of fiber. Multigrain cereal cup (15 g) has about 2 4 g of fiber. Whole-wheat bread 1 slice (26 g) has 2 g of fiber. Whole-wheat spaghetti noodles cup (70 g) has 3.2 g of fiber. [place] tortilla one 6-inch (15 cm) tortilla has 1.5 g of fiber. Meats and other proteins Almonds cup or 1 oz (28 g) has 3.5 g of fiber. [place] seeds in shell cup or oz (11.5 g) has 1.1 g of fiber. Vegetable or soy kaykay 1 kaykay (70 g) has 3.4 g of fiber. Walnuts cup or 1 oz (30 g) has 2 g of fiber. Flax seed 1 Tbsp (7 g) has 2.8 g of fiber. The items listed above may not be a complete list of foods that have moderate amounts of fiber. Actual amounts of fiber may be different depending on processing. Contact a dietitian for more information. What foods are low in fiber? Low-fiber foods contain less than 1 g of fiber per serving. They include: Fruits Fruit juice cup or 4 fl oz (118 mL) has 0.5 g of fiber. Vegetables Lettuce 1 cup (35 g) has 0.5 g of fiber. [place] (slices) cup (60 g) has 0.3 g of fiber. Celery 1 stalk (40 g) has 0.1 g of fiber. Grains Flour tortilla one 6-inch (15 cm) tortilla has 0.5 g of fiber. White rice (cooked) cup (81.5 g) has 0.3 g of fiber. Meats and other proteins Egg 1 large (50 g) has 0 g of fiber. Meat, poultry, or fish 3 oz (85 g) has 0 g of fiber. Dairy Milk 1 cup or 8 fl oz (237 mL) has 0 g of fiber. Yogurt 1 cup (245 g) has 0 g of fiber. The items listed above may not be a complete list of foods that are low in fiber. Actual amounts of fiber may be different depending on processing. Contact a dietitian for more information. Summary Fiber is a substance that is found in plant foods, such as fruits, vegetables, whole grains, nuts, seeds, and beans. As part of your treatment and recovery plan, your health care provider may recommend that you eat foods that have specific amounts of dietary fiber. This information is not intended to replace advice given to you by your health care provider. Make sure you discuss any questions you have with your health care provider. Document Revised: 12/10/2020 Document Reviewed: 12/10/2020 [employer] Patient Education 2023 [employer] 05/09/2024 10:49:23 High-Fiber Eating Plan High-Fiber Eating Plan Fiber, also called dietary fiber, is a type of carbohydrate. It is found foods such as fruits, vegetables, whole grains, and beans. A high-fiber diet can have many health benefits. Your health care provider may recommend a high-fiber diet to help: Prevent constipation. Fiber can make your bowel movements more regular. Lower your cholesterol. Relieve the following conditions: ?Inflammation of veins in the anus (hemorrhoids). ?Inflammation of specific areas of the digestive tract (uncomplicated diverticulosis). ?A problem of the large intestine, also called the colon, that sometimes causes pain and diarrhea (irritable bowel syndrome, or IBS). Prevent overeating as part of a weight-loss plan. Prevent heart disease, type 2 diabetes, and certain cancers. What are tips for following this plan? Reading food labels Check the nutrition facts label on food products for the amount of dietary fiber. Choose foods that have 5 grams of fiber or more per serving. The goals for recommended daily fiber intake include: ?Men (age 50 or younger): 34 38 g. ?Men (over age 50): 28 34 g. ?Women (age 50 or younger): 25 28 g. ?Women (over age 50): 22 25 g. Your daily fiber goal is g. Shopping Choose whole fruits and vegetables instead of processed forms, such as apple juice or applesauce. Choose a wide variety of high-fiber foods such as avocados, lentils, oats, and kidney beans. Read the nutrition facts label of the foods you choose. Be aware of foods with added fiber. These foods often have high sugar and sodium amounts per serving. Cooking Use whole-grain flour for baking and cooking. Cook with brown rice instead of white rice. Meal planning Start the day with a breakfast that is high in fiber, such as a cereal that contains 5 g of fiber or more per serving. Eat breads and cereals that are made with whole-grain flour instead of refined flour or white flour. Eat brown rice, bulgur wheat, or millet instead of white rice. Use beans in place of meat in soups, salads, and pasta dishes. Be sure that half of the grains you eat each day are whole grains. General information You can get the recommended daily intake of dietary fiber by: ?Eating a variety of fruits, vegetables, grains, nuts, and beans. ?Taking a fiber supplement if you are not able to take in enough fiber in your diet. It is better to get fiber through food than from a supplement. Gradually increase how much fiber you consume. If you increase your intake of dietary fiber too quickly, you may have bloating, cramping, or gas. Drink plenty of water to help you digest fiber. Choose high-fiber snacks, such as berries, raw vegetables, nuts, and popcorn. What foods should I eat? Fruits Berries. Pears. Apples. Oranges. Avocado. Prunes and raisins. Dried figs. Vegetables Sweet potatoes. Spinach. Kale. Artichokes. Cabbage. Broccoli. Cauliflower. Green peas. Carrots. Squash. Grains Whole-grain breads. Multigrain cereal. Oats and oatmeal. Brown rice. Barley. Bulgur wheat. Millet. Quinoa. Bran muffins. Popcorn. [place] wafer crackers. Meats and other proteins [place] beans, kidney beans, and dumont beans. Soybeans. Split peas. Lentils. Nuts and seeds. Dairy Fiber-fortified yogurt. Beverages Fiber-fortified soy milk. Fiber-fortified orange juice. Other foods Fiber bars. The items listed above may not be a complete list of recommended foods and beverages. Contact a dietitian for more information. What foods should I avoid? Fruits Fruit juice. Cooked, strained fruit. Vegetables Fried potatoes. Canned vegetables. Well-cooked vegetables. Grains White bread. Pasta made with refined flour. White rice. Meats and other proteins Fatty cuts of meat. Fried chicken or fried fish. Dairy Milk. Yogurt. Cream cheese. Sour cream. Fats and oils [place]. Beverages Soft drinks. Other foods Cakes and pastries. The items listed above may not be a complete list of foods and beverages to avoid. Talk with your dietitian about what choices are best for you. Summary Fiber is a type of carbohydrate. It is found in foods such as fruits, vegetables, whole grains, and beans. A high-fiber diet has many benefits. It can help to prevent constipation, lower blood cholesterol, aid weight loss, and reduce your risk of heart disease, diabetes, and certain cancers. Increase your intake of fiber gradually. Increasing fiber too quickly may cause cramping, bloating, and gas. Drink plenty of water while you increase the amount of fiber you consume. The best sources of fiber include whole fruits and vegetables, whole grains, nuts, seeds, and beans. This information is not intended to replace advice given to you by your health care provider. Make sure you discuss any questions you have with your health care provider. Document Revised: 12/10/2020 Document Reviewed: 12/10/2020 [employer] Patient Education 2023 [employer] 05/08/2024 15:12:44 Overactive Bladder, Adult Overactive Bladder, Adult Overactive bladder is a condition in which a person has a sudden and frequent need to urinate. A person might also leak urine if he or she cannot get to the bathroom fast enough (urinary incontinence). Sometimes, symptoms can interfere with work or social activities. What are the causes? Overactive bladder is associated with poor nerve signals between your bladder and your brain. Your bladder may get the signal to empty before it is full. You may also have very sensitive muscles that make your bladder squeeze too soon. This condition may also be caused by other factors, such as: Medical conditions: ?Urinary tract infection. ?Infection of nearby tissues. ?Prostate enlargement. ?Bladder stones, inflammation, or tumors. ?Diabetes. ?Muscle or nerve weakness, especially from these conditions: ?A spinal cord injury. ?Stroke. ?Multiple sclerosis. ?Parkinson's disease. Other causes: ?Surgery on the uterus or urethra. ?Drinking too much caffeine or alcohol. ?Certain medicines, especially those that eliminate extra fluid in the body (diuretics). ?Constipation. What increases the risk? You may be at greater risk for overactive bladder if you: Are an older adult. Smoke. Are going through menopause. Have prostate problems. Have a neurological disease, such as stroke, dementia, Parkinson's disease, or multiple sclerosis (MS). Eat or drink alcohol, spicy food, caffeine, and other things that irritate the bladder. Are overweight or obese. What are the signs or symptoms? Symptoms of this condition include a sudden, strong urge to urinate. Other symptoms include: Leaking urine. Urinating 8 or more times a day. Waking up to urinate 2 or more times overnight. How is this diagnosed? This condition may be diagnosed based on: Your symptoms and medical history. A physical exam. Blood or urine tests to check for possible causes, such as infection. You may also need to see a health care provider who specializes in urinary tract problems. This is called a urologist. How is this treated? Treatment for overactive bladder depends on the cause of your condition and whether it is mild or severe. Treatment may include: Bladder training, such as: ?Learning to control the urge to urinate by following a schedule to urinate at regular intervals. ?Doing Kegel exercises to strengthen the pelvic floor muscles that support your bladder. Special devices, such as: ?Biofeedback. This uses sensors to help you become aware of your body's signals. ?Electrical stimulation. This uses electrodes placed inside the body (implanted) or outside the body. These electrodes send gentle pulses of electricity to strengthen the nerves or muscles that control the bladder. ?Women may use a plastic device, called a pessary, that fits into the vagina and supports the bladder. Medicines, such as: ?Antibiotics to treat bladder infection. ?Antispasmodics to stop the bladder from releasing urine at the wrong time. ?Tricyclic antidepressants to relax bladder muscles. ?Injections of botulinum toxin type A directly into the bladder tissue to relax bladder muscles. Surgery, such as: ?A device may be implanted to help manage the nerve signals that control urination. ?An electrode may be implanted to stimulate electrical signals in the bladder. ?A procedure may be done to change the shape of the bladder. This is done only in very severe cases. Follow these instructions at home: Eating and drinking Make diet or lifestyle changes recommended by your health care provider. These may include: ?Drinking fluids throughout the day and not only with meals. ?Cutting down on caffeine or alcohol. ?Eating a healthy and balanced diet to prevent constipation. This may include: ?Choosing foods that are high in fiber, such as beans, whole grains, and fresh fruits and vegetables. ?Limiting foods that are high in fat and processed sugars, such as fried and sweet foods. Lifestyle Lose weight if needed. Do not use any products that contain nicotine or tobacco. These include cigarettes, chewing tobacco, and vaping devices, such as e-cigarettes. If you need help quitting, ask your health care provider. General instructions Take gvaj-ocy-dfdqenu and prescription medicines only as told by your health care provider. If you were prescribed an antibiotic medicine, take it as told by your health care provider. Do not stop taking the antibiotic even if you start to feel better. Use any implants or pessary as told by your health care provider. If needed, wear pads to absorb urine leakage. Keep a log to track how much and when you drink, and when you need to urinate. This will help your health care provider monitor your condition. Keep all follow-up visits. This is important. Contact a health care provider if: You have a fever or chills. Your symptoms do not get better with treatment. Your pain and discomfort get worse. You have more frequent urges to urinate. Get help right away if: You are not able to control your bladder. Summary Overactive bladder refers to a condition in which a person has a sudden and frequent need to urinate. Several conditions may lead to an overactive bladder. Treatment for overactive bladder depends on the cause and severity of your condition. Making lifestyle changes, doing Kegel exercises, keeping a log, and taking medicines can help with this condition. This information is not intended to replace advice given to you by your health care provider. Make sure you discuss any questions you have with your health care provider. Document Revised: 04/26/2021 Document Reviewed: 04/26/2021 [employer] Patient Education 2023 [employer]. Follow Up Care 04/26/2023 13:57:10 With:FREYA JOHNSON PA-C, URL Address: When:1 year [facility] amBX 05-09-2024 Note Patient Education Gastroenterology Fiber Content in Foods Fiber is a substance that is found in plant foods, such as fruits, vegetables, whole grains, nuts, seeds, and beans. As part of your treatment and recovery plan, your health care provider may recommend that you eat foods that have specific amounts of dietary fiber. Some conditions may require a high-fiber diet while others may require a low-fiber diet. This sheet gives you information about the dietary fiber content of some common foods. Your health care provider will tell you how much fiber you need in your diet. If you have problems or questions, contact your health care provider or dietitian. What foods are high in fiber? Fruits ? Blackberries or raspberries (fresh) ? ? cup (75 g) has 4 g of fiber. ? Pear (fresh) ? 1 medium (180 g) has 5.5 g of fiber. ? Prunes (dried) ? 6 to 8 pieces (57?76 g) has 5 g of fiber. ? Apple with skin ? 1 medium (182 g) has 4.8 g of fiber. ? Guava ? 1 cup (128 g) has 8.9 g of fiber. Vegetables ? Peas (frozen) ? ? cup (80 g) has 4.4 g of fiber. ? Potato with skin (baked) ? 1 medium (173 g) has 4.4 g of fiber. ? Pumpkin (canned) ? ? cup (122 g) has 5 g of fiber. ? [place] sprouts (cooked) ? ? cup (78 g) has 4 g of fiber. ? Sweet potato ? ? cup mashed (124 g) has 4 g of fiber. ? Winter squash ? 1 cup cooked (205 g) has 5.7 g of fiber. Grains ? Bran cereal ? ? cup (31 g) has 8.6 g of fiber. ? Bulgur (cooked) ? ? cup (70 g) has 4 g of fiber. ? Quinoa (cooked) ? 1 cup (185 g) has 5.2 g of fiber. ? Popcorn ? 3 cups (375 g) popped has 5.8 g of fiber. ? Spaghetti, whole wheat ? 1 cup (140 g) has 6 g of fiber. Meats and other proteins ? [place] beans (cooked) ? ? cup (90 g) has 7.7 g of fiber. ? Lentils (cooked) ? ? cup (90 g) has 7.8 g of fiber. ? Kidney beans (canned) ? ? cup (92.5 g) has 5.7 g of fiber. ? Soybeans (canned, frozen, or fresh) ? ? cup (92.5 g) has 5.2 g of fiber. ? Baked beans, plain or vegetarian (canned) ? ? cup (130 g) has 5.2 g of fiber. ? Garbanzo beans or chickpeas (canned) ? ? cup (90 g) has 6.6 g of fiber. ? Black beans (cooked) ? ? cup (86 g) has 7.5 g of fiber. ? White beans or navy beans (cooked) ? ? cup (91 g) has 9.3 g of fiber. The items listed above may not be a complete list of foods with high fiber. Actual amounts of fiber may be different depending on processing. Contact a dietitian for more information. What foods are moderate in fiber? Fruits ? Banana ? 1 medium (126 g) has 3.2 g of fiber. ? Melon ? 1 cup (155 g) has 1.4 g of fiber. ? [place] ? 1 small (154 g) has 3.7 g of fiber. ? Raisins ? ? cup (40 g) has 1.8 g of fiber. ? Applesauce, sweetened ? ? cup (125 g) has 1.5 g of fiber. ? Blueberries (fresh) ? ? cup (75 g) has 1.8 g of fiber. ? Strawberries (fresh, sliced) ? 1 cup (150 g) has 3 g of fiber. ? Cherries ? 1 cup (140 g) has 2.9 g of fiber. Vegetables ? Broccoli (cooked) ? ? cup (77.5 g) has 2.1 g of fiber. ? Carrots (cooked) ? ? cup (77.5 g) has 2.2 g of fiber. ? [place] (canned or frozen) ? ? cup (82.5 g) has 2.1 g of fiber. ? Potatoes, mashed ? ? cup (105 g) has 1.6 g of fiber. ? Tomato ? 1 medium (62 g) has 1.5 g of fiber. ? Green beans (canned) ? ? cup (83 g) has 2 g of fiber. ? Squash, winter ? ? cup (58 g) has 1 g of fiber. ? Sweet potato, baked ? 1 medium (150 g) has 3 g of fiber. ? Cauliflower (cooked) ? 1/2 cup (90 g) has 2.3 g of fiber. Grains ? Long-grain brown rice (cooked) ? 1 cup (196 g) has 3.5 g of fiber. ? Bagel, plain ? one 4-inch (10 cm) bagel has 2 g of fiber. ? Instant oatmeal ? ? cup (120 g) has about 2 g of fiber. ? Macaroni noodles, enriched (cooked) ? 1 cup (140 g) has 2.5 g of fiber. ? Multigrain cereal ? ? cup (15 g) has about 2?4 g of fiber. ? Whole-wheat bread ? 1 slice (26 g) has 2 g of fiber. ? Whole-wheat spaghetti noodles ? ? cup (70 g) has 3.2 g of fiber. ? [place] tortilla ? one 6-inch (15 cm) tortilla has 1.5 g of fiber. Meats and other proteins ? Almonds ? ? cup or 1 oz (28 g) has 3.5 g of fiber. ? [place] seeds in shell ? ? cup or ? oz (11.5 g) has 1.1 g of fiber. ? Vegetable or soy kaykay ? 1 kaykay (70 g) has 3.4 g of fiber. ? Walnuts ? ? cup or 1 oz (30 g) has 2 g of fiber. ? Flax seed ? 1 Tbsp (7 g) has 2.8 g of fiber. The items listed above may not be a complete list of foods that have moderate amounts of fiber. Actual amounts of fiber may be different depending on processing. Contact a dietitian for more information. What foods are low in fiber? Low-fiber foods contain less than 1 g of fiber per serving. They include: Fruits ? Fruit juice ? ? cup or 4 fl oz (118 mL) has 0.5 g of fiber. Vegetables ? Lettuce ? 1 cup (35 g) has 0.5 g of fiber. ? [place] (slices) ? ? cup (60 g) has 0.3 g of fiber. ? Celery ? 1 stalk (40 g) has 0.1 g of fiber. Grains ? Flour tortilla ? one 6-inch (15 (more content not included)... [facility] 07-24-2023 Evaluation note Encounter Date Diagnosis Assessment [...] understanding and is agreeable to treatment plan. [facility] Other 11-15-2023 Evaluation note* Encounter Date Diagnosis Assessment Notes Treatment Notes Treatment Clinical Notes Jun, Acute vaginitis (ICD-10 - N76.0) [facility] Other 11-10-2023 Evaluation note* Encounter Date Diagnosis [...] verbalizes understanding and agrees with tx plan. [facility] Other 09-20-2023 Evaluation note* Encounter Date Diagnosis Assessment Notes Treatment Notes Treatment Clinical Notes Apr, Gluten intolerance (ICD-10 - K90.0) [facility] Other 09-06-2023 Hospital Discharge instructions Patient Education 04/26/2023 13:55:04 Urinary Tract Infection, Adult, Fsdp-bp-Vbmk Urinary Tract Infection, Adult A urinary tract [...] Follow these instructions at home: Medicines Take puwc-blb-oonoxvp and prescription medicines only as told by [...] provider. Document Revised: 03/19/2021 Document Reviewed: 03/19/2021 [employer] Patient Education 2022 [employer]. Follow Up Care 03/30/2022 13:19:45 With:ALEX DANIEL, FREYA Hunter, URL Address: [address] [facility] [place] [address] When:Within 1 Year(s) [facility] 08-04-2023 Evaluation note* Encounter Date Diagnosis Assessment Notes Treatment Notes Treatment Clinical Notes Mar, Change in bowel habits (ICD-10 - R19.4) Mar, Fecal incontinence (ICD-10 - R15.9) Mar, Bloating (ICD-10 - R14.0) Mar, Diarrhea, unspecified (ICD-10 - R19.7) [facility] Other 01-20-2023 Evaluation note* Encounter Date Diagnosis Assessment Notes Treatment Notes Treatment Clinical Notes Aug, Left medial knee pain (ICD-10 - M25.562) Discussed options. Handwrote order for pt. Gave exercises for stretching at home. Will call if no improvment for a potential ortho referral. Discussed NSAIDs and heat for improvement [facility] Other 04-20-2022 Hospital Discharge instructions Patient Education [...] fried and sweet foods. General instructions Take rnlk-zrn-uaysvkq and prescription medicines only as told by [...] 06/03/2010 Document Revised: 11/28/2019 Document Reviewed: 08/23/2018 [employer] Patient Education 2020 [employer]. Follow Up Care 11/11/2021 12:54:29 With:FREYA JOHNSON PA-C, URL Address: [address] [place] [address] When:3 months [facility] 03-14-2022 Evaluation note* Encounter Date Diagnosis Assessment Notes Treatment Notes Treatment Clinical Notes Oct, Irritable bowel syndrome with both constipation and diarrhea (ICD-10 - K58.2) Oct, Exocrine pancreatic insufficiency (ICD-10 - K86.81) SAMPLES OF ZENPEP GIVEN TO PT PT TO REPORT PROGRESS Oct, Fecal incontinence (ICD-10 - R15.9) Oct, GERD without esophagitis (ICD-10 - K21.9) [facility] Other 02-27-2022 Evaluation note* Encounter Date Diagnosis [...] infection (UTI) home care material was printed [facility] Other 09-29-2020 NoteAccession #: [id number] Date of Procedure: 05/19/2020 Pathologist: STEF GREEN MD Date Reported: 05/26/2020 Date Received: 05/19/2020 Submitting Physician: FELY DAMON CNM [facility] FINAL CYTOLOGICAL INTERPRETATION Squamous and/or Glandular Abnormality [...] verified by the Molecular Diagnostic Laboratory at [facility]. The lab is certified under the Clinical Laboratory Amendments of 1988 (CLIA 88) as qualified to perform high complexity clinical laboratory testing. This specimen has been analyzed by the ThinPrep Imaging System ([employer] an automated imaging and review system, which assists the laboratory in evaluating cells on ThinPrep Pap tests. Following automated imaging, selected vann from every slide were reviewed by a co pilot and/or pathologist. Electronically Signed Out By STEF [...] Source of Specimen A: THINPREP PAP VAGINAL [facility] Department of Pathology [address] [place], [place] [address]BI [facility] CenterComment on above:Performed By: #### C #### [facility] Cytology [id number] [facility] [phone] Miscellaneous Notes* Telephone Encounter - Bridgette Owens [...] cap weekly for 10 weeks. Then, take mpog-phw-plkvsiu Vitamin D3 supplements of at least 1,000 units daily. The following approved medication requests have been transmitted electronically. Signed Prescriptions Disp Refills cholecalciferol, Vitamin D3, 50,000 unit cap capsule 10 capsule 0 Si cap per week x 10 weeks. ELADIO: No Authorizing Provider: LARRY ALLEN DO documented in this encounterMartin Memorial HospitalEvaluation + Plan note Future Appointments Appointment Date:03/16/2022 08:30:00 AM Scheduled Provider:FREYA JOHNSON PA-C Location:[facility] Appointment Type:URO Office Visit [facility] evaluation + Plan note Future Appointments Appointment Date:04/30/2024 10:00:00 AM Scheduled Provider:FREYA JOHNSON PA-C Location:[facility] Appointment Type:URO Office Visit [facility] evaluation noteNo InformationNort Marqeta Other Evaluation noteNo assessment information available [facility] Work Phone: Evaluation note* Diagnosis Onset Date Resolution Status Sunburn of first degree acut e Chronic sinusitis acute [facility] Work Phone: Evaluation note* Diagnosis Chronic sinusitis, unspecified location- Primary Allergic rhinitis, unspecified seasonality, unspecified trigger documented in this encounter [facility] Narrative - Reported* Type Description Date Medical History Hypothyroidism Medical History insomnia Medical History acid reflux Surgical History tonsillectomy Surgical History D&C Surgical History hysterectomy Surgical History Foot Surgery right Hospitalization History see above [facility] Other History general Narrative - Reported* Type Description Date Medical History Dyspnea Medical History Fatigue Medical History Abdominal bloating Medical History Abdominal pain, RUQ Medical History IBS (irritable bowel syndrome) Medical History Hypothyroidism (acquired) Medical History Acid reflux Surgical History tonsillectomy Surgical History D&C Surgical History hysterectomy Surgical History Foot Surgery right Hospitalization History SEE SURGICAL HX [facility] Other [facility] general Narrative - Reported* Type Description Date [...] Surgery right Hospitalization History SEE SURGICAL HX [facility] Other [facility] general Narrative - Reported* Type Description Date [...] Repair 07/17/23 Hospitalization History SEE SURGICAL HX [facility] Other Hospital course Narrative No data available for this section [facility] Hospital Discharge instructionsAmbulatory Orders* Referral to ENT Time Frame: 05/23/24, Location: None Selected [facility] Work Phone: Progress note No data available for this section [facility] reason for visit Narrativeknee troubles, possible referralBowling [place] Marqeta Other Summary Purpose Family History uncle Name [...] of colon: Sister, Maternal Uncle(V16.0, Z80.0) Status:Active Relationship Condition Age at Onset Recorded Date/T nataliia grandparent Heart problem Unknown Advance Directives Advance Directive Response Recorded Date/ Time Advance Directives No September 03, 2020 10:43am Chief Complaint and Reason for Visit Chief Complaint possible tabares on fe et Chief Complaint possible tabares on fe et dry cough Reason for Visit Sunburn of first deg ree Chronic sinusitis Additional Source Comments INFORMATION SOURCE (unrecogn ized section and content) DATE CREATED AUTHOR 02/14/2018 [facility] Healthcare DATE CREATED AUTHOR AUTHOR'S ORGANIZ ATION 01/10/2019 [facility] DATE CREATED AUTHOR AUTHOR'S ORGANIZ ATION 01/17/2019 [facility] DATE CREATED AUTHOR AUTHOR'S ORGANIZ ATION 12/16/2020 [facility] DATE CREATED AUTHOR AUTHOR'S ORGANIZ ATION 12/16/2020 [facility] DATE CREATED AUTHOR AUTHOR'S ORGANIZ ATION 01/12/2021 [facility] DATE CREATED AUTHOR AUTHOR'S ORGANIZ ATION [facility]/27/2023 [facility] DATE CREATED AUTHOR AUTHOR'S ORGANIZ ATION 03/23/2023 [facility] DATE CREATED AUTHOR AUTHOR'S ORGANIZ ATION 11/09/2023 [facility] DATE CREATED AUTHOR AUTHOR'S ORGANIZ ATION 12/26/2023 [facility] DATE CREATED AUTHOR AUTHOR'S ORGANIZ ATION 05/11/2024 [facility] Source Comments (unrecognize d section and content) In the event this informatio n is protected by the Federal Confidentiality of Alcohol and Drug Abuse Patient Records regulations: The Federal rules restrict any use of the information to criminally investigate or prosecute any alcohol or drug abuse patient.[facility] Reason for Visit (unrecogniz ed section and content) Reason Onset Date Comments Results 12/10/2013 Reason Comments Dry cough Patient Care team informatio n (unrecognized section and content) Team Status: Active Member Role Status Dates Xiomara Aaron MD Primary Care Provider Active Team Status: Inactive Member Role Status Dates Xiomara Aaron MD Primary Care Provide r, Attending Provider Active Start: April 10, 2024 End: April 10, 2024 Team Status: Inactive Member Role Status Dates Xiomara Aaron MD Primary Care Provide r, Attending Provider Active Start: May 23, 2024 End: May 23, 2024 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 [employer] [facility]. provides no warranty or guarantee of the accuracy or completeness of information in this document.
--- NOTE | 2024-06-20 14:42 | XR_ITS ---
The [address] [address] Patient Name: NICK WRIGHT MRN: [id number] date: 1970 Sex: F Assigned Patient Location: LAB Current Patient Location: Accession/Order Number: [id number] Exam Date: 06/20/2024 14:49 Report Date: 06/22/2024 06:55 At the request of: KIM BURNETTE Procedure: XR sinus min 3V EXAMINATION: XR sinus min 3V HISTORY: Chronic Sinusitis COMPARISON: No relevant comparison available. FINDINGS: MAXILLARY: No mucosal thickening or fluid level. ETHMOID: No mucosal thickening or fluid level. FRONTAL: No mucosal thickening or fluid level. SPHENOID: No mucosal thickening or fluid level. OTHER: Negative. XR/XR sinus min 3V IMPRESSION: 1. No radiographic evidence of acute or significant chronic sinusitis. Electronically authenticated by: JOSE RODRIGUEZ Date: 06/22/2024 06:55
[2024-06-26 21:09] LABS: D001-IgE D pteronyssinus <0.10 kU/L (Class 0); D002-IgE D farinae <0.10 kU/L (Class 0); E001-IgE Cat Dander <0.10 kU/L (Class 0); E005-IgE Dog Dander <0.10 kU/L (Class 0); E072-IgE Mouse Urine <0.10 kU/L (Class 0); G002-IgE Bermuda Grass <0.10 kU/L (Class 0); G006-IgE Timothy Grass <0.10 kU/L (Class 0); I006-IgE Cockroach, German <0.10 kU/L (Class 0); Immunoglobulin E, Total 37 IU/mL (6-495); M001-IgE Penicillium chrysogen <0.10 kU/L (Class 0); M002-IgE Cladosporium herbarum <0.10 kU/L (Class 0); M003-IgE Aspergillus fumigatus <0.10 kU/L (Class 0); M006-IgE Alternaria alternata 0.19 kU/L (Class 0/I); T001-IgE Maple/Box Elder <0.10 kU/L (Class 0); T003-IgE Common Silver Birch <0.10 kU/L (Class 0); T006-IgE Cedar, Mountain <0.10 kU/L (Class 0); T007-IgE Oak, White <0.10 kU/L (Class 0); T008-IgE Elm, American <0.10 kU/L (Class 0); T010-IgE Walnut <0.10 kU/L (Class 0); T011-IgE Maple Leaf Sycamore <0.10 kU/L (Class 0); T014-IgE Cottonwood <0.10 kU/L (Class 0); T015-IgE Ash, White <0.10 kU/L (Class 0); T022-IgE Pecan, Hickory <0.10 kU/L (Class 0); T070-IgE White Mulberry <0.10 kU/L (Class 0); W001-IgE Ragweed, Short <0.10 kU/L (Class 0); W011-IgE Thistle, Russian <0.10 kU/L (Class 0); W014-IgE Pigweed, Common <0.10 kU/L (Class 0); W018-IgE Sheep Sorrel <0.10 kU/L (Class 0)
== END 2024-06-20 14:23 | disposition home or self-care (01) ==
LOC: LAB 14:22
PROVIDERS: PCP Family Medicine; Visit Provider Otolaryngology
DX: J30.9 Allergic rhinitis, unspecified (principal); J32.9 Chronic sinusitis, unspecified
CPT/HCPCS: 36415; 70220; 82785; 86003

== ENCOUNTER 2024-08-05 08:56 | Outpatient (OUT) | payer BC, SELFPAY ==
--- NOTE | 2024-08-05 09:00 | ECG_ITS ---
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
--- OUTSIDE RECORDS SUMMARY | 2024-08-05 09:19 | XMS_ITS | CCD ---
Author Organization [facility] Care Team Providers Care Fisher Seal Name Role Phone Saba Jenkins Unavailable Unavailable Furness, Yan T Unavailable Unavailable London, Ba U Unavailable Unavailable Wood, Javad Unavailable Unavailable Fried, Fely Unavailable Unavailable Furness, Yan Unavailable Unavailable RoldanMelvin martin Unavailable Unavailable Furness, Yan T Primary [...] Asaad, Imad Admitting Unavailable Freya Ponce Unavailable DON ABRAHAM Referring Unavailable XIOMARA AARON Primary Care Unavailable FREDY JOHNSON Attending UnavailXiomara Bone MD Primary Care Provider ANA INGRAM Attending Unavailable JOBY MILLER Attending Unavailable KIM BURNETTE Attending Unavailable KIM BURNETTE Attending Unavailable Allergies Allergy Classification Reported Allergen(s) Allergy Type Date of Onset Reaction(s) Facility Macrolides (antibiotic) (3 sources) Azithromycin; Translations: [erythromycin] Drug Allergy 07-30-20 12 Vomiting [facility] (20 sources) Erythromycin; Translations: [Erythromycin] Drug Allergy 02-09-20 23 Vomitus (substance), GI intolerance [facility] Work Phone: (1 source) Erythromycin Drug Allergy 07-02-20 [facility] (1 source) Erythromycin Drug Allergy 09-21-19 21 [facility] (6 sources) Allergies Reconciled Propensity to adverse reactions Unknown [place] Other Medications Current Medications Medication Drug Class(es) Dates Sig (Normalized) Sig (Original) [id number] 200 actuat albuterol 0.09 mg/actuat metered dose inhaler (15 sources) beta2-Adrenergic Agonist Start: 03-16-2023 take 90 [...] Quantity: 30 Refills: 1 Ordered: 25-Jan-2021 Chance Barnes MD Start : 25-Jan-2021 Active Start: 09-08-2020 Estradiol 10 M CG Vaginal Tablet 1 PV QHS x 14 days then 1 PV twice weekly Quantity: 20 Refills: 5 Ordered: 08-Sep-2020 Fried LIVESTOCK TRUCKER-CNM, LIVESTOCK TRUCKER-PATTERN MARKING SUPERVISOR, Fely Start : 08-Sep-2020 Active Vagifem 10 [...] Start: 07-05-2023 take 1 tablet by chau every twenty-four hours Fluconazole 150 MG 1 [...] 10 mg oral tablet (1 source) Start: take 1 tablet by mouth once daily Loratadine (Claritin) 10 mg tablet Active 10 MG PO Daily May 23, 2024 12:00am montelukast 10 mg oral tablet (11 sources) Leukotriene Receptor Antagonist Start: End: 5 [...] Ordered Multiple Vitamins-Minerals (MULTIVITAMIN ADULT, MINERALS, PO) (6 sources) take 1 dose by mouth once [...] intercourse, # 30 cap(s), Refills(s) 3, Pharmacy: [facility]/pharmacy #[id number], 170, cm, 04/26/23 13:36:00 EDT, [...] Daily, # 90 tab(s), Refills(s) 3, Pharmacy: [facility]/pharmacy #[id number], 170, cm, 12/08/21 9:43:00 EDT, [...] by chau th daily at bedtime. amylase [id number] unt / lipase 27305 unt / protease [id number] unt delayed release oral capsule (8 sources) Start: 11-01-2021 take 1 capsule by mouth every eight hours Zenpep [id number] UNIT 1 CAPSULE Orally THREE TIMES A DAY for 30 days Oct, Not-Taking Biotin (9 sources) Start: 03-16-2023 End: 10-25-2023 take 3334 ug by mouth once daily Biotin Discontinued 3334 MCG PO Daily March 16, 2023 12:00am October 25, 2023 11:08am take 1 tablet by chau th every twenty-four hours Biotin 39772 MCG 1 tablet Orally Once a day Active take 1 tablet by chau th every twenty-four hours Biotin 74719 MCG 1 tablet Orally Once a day Active take 1 tablet by mouth once emy y Biotin 33143 MCG 1 tablet Orally Once a day [...] Start : 31-Jul-2019 Active Olopatadine HCl Active [place] 1-Yny-Crw-Fish Oil (Fish Oil) 100-160-1,000 mg capsule (2 sources) Start: 10-24-2023 End: 10-25-2023 take 100-160 capsules by mouth once daily [place] 9-Vbf-Kfu-Fish Oil (Fish Oil) 100-160-1,000 mg capsule Discontinued 1 CAP PO Daily October 24, 2023 1:00am October 25, 2023 11:08am [place]-3 Fatty Acids (Fish Oil) Capsule (2 sources) Start: 03-16-2023 End: 10-23-2023 take 1 capsule by mouth once daily [place]-3 Fatty Acids (Fish Oil) Capsule Discontinued 1000 MG PO Daily March 16, 2023 12:00am October 23, 2023 4:20pm polyethylene glycol 3350 969859 mg / potassium chloride 2970 mg / sodium bicarbonate 6740 mg / sodium chloride 5860 mg / sodium sulfate 58452 mg powder for oral solution (3 sources) [...] UNSPECIFIED] Onset: 2 Episodic Other gastrointestinal disorders (9 sources) Altered [...] Onset: 2 Episodic Other upper respiratory disease (13 sources) Allergic rhinitis; Translations: [Allergic rhinitis due to other allergen] Onset: 4 10-25-2023 Chronic Other upper respiratory disease (4 sources) Hypertrophy of nasal turbinates; Translations: [Hypertrophy of nasal turbinates] Onset: 4 07-17-2024 Episodic Other upper respiratory infections (20 sources) Chronic sinusitis; Translations: [Chronic sinusitis, unspecified] [...] state] Onset: 10-27-2021 Episodic Residual codes; unclassified (8 sources) Menopause present; Translations: [Asymptomatic menopausal state] [...] EDT Reminder/Recall Patient will need scheduled with [facility] for a 1 yr F/U, due back 05/10/2025 Normal [facility] Urology Office/Clinic Noteon 05-09-2024 Urology Office/Clinic Note [...] Urinary tract infection, site not specified) Pt's PRINCIPAL ARCHAEOLOGIST put her on Macrobid post-coital a few years ago. Was taking once weekly with good results. Stopped about 6-12 mos ago without any breakthrough infections. No current UTI sx. Unable to give sample today. Ordered: E&M of Est. Patient Low 20-29 Min 22829 2. OAB (overactive bladder) (N32.81: Overactive bladder) Oxybutynin ER 5mg QD (switched from IR previously). I see that she is consistently filling this. No bothersome SE's. Denies frequency. Feels medication is working well and does not wish to make any adjustments at this time. Refills sent. Ordered: E&M of Est. Patient Low 20-29 Min 73471 3. IBS (irritable bowel syndrome) (K58.9: Irritable [...] E&M of Est. Patient Low 20-29 Min 83426 Orders: nitrofurantoin, See Instructions, 1 cap orally after intercourse, # 30 cap(s), Refills(s) 3, [id number] 170, cm, 04/26/23 13:36:00 EDT, Height/Length Dosing, 69.1, kg, 04/26/23 13:36:00 EDT, Weight Dosing oxybutynin, 5 mg = 1 tab(s), Oral, Daily, # 90 tab(s), Refills(s) 3, [id number] 170, cm, 05/09/24 10:34:00 EDT, Height/Length Dosing, [...] (COVID-19) mRNA BNT-162b2 vax 11/25/2020 Recorded Normal [facility] Comment on above: Result Comment: Elec tronically Signed By: ALEX DANIEL, FREYA Chao\Date and Time Signed: 05/09/24 11:05 EDT Cortisol [Mass/Vol]on 2023 CORTISOL 9.4 ug/dL Normal [facility] Comment on above: Result Comment: Due to the diurnal variation of cortisol levels in normal subjects, all cortisol measurements should be referenced to the time of day of sample collection. AM Cortisol Age>=6 6.7-22.4 ug/dL PM Cortisol Age>=6 <10 ug/dL Performed By: #### 2 143-6 #### [facility] ([id number]) [address], [address] [place] [address] THYROGLOBULIN ABon 4 Thyroglobulin Ab Qn [IU]/mL Normal <4.0 [facility] Comment on above: Performed By: #### 3 5365-6, 8098-6, 8099-4 #### [facility] ([id number]) [address], [address] [place] [address] THYROPEROXIDASE ABon 024 TPO Ab Qn [IU]/mL Normal <10 [facility] Comment on above: Performed By: #### 3 5365-6, 8098-6, 8099-4 #### [facility] ([id number]) [address], [address] [place] [address] Vitamin D+Metabolites [Mass/ Vol]on 12-25-2023 VITAMIN D 25 HYD TOT 28.2 ng/mL Low 30-100 [facility] Comment on above: Result Comment: Vitamin D status 25 [place] Vitamin D Deficiency <20 ng/mL Insufficiency 20-29 ng/mL Sufficiency 30-100 ng/mL Toxicity >100 ng/mL NOTE: A pediatric reference range has not been established by the terrazzo grinder of this kit. The [place] [employer] recommends a Vitamin D level of = or >20ng/mL in infants and children. Performed By: #### 3 5365-6, 8098-6, 8099-4 #### [facility] ([id number]) [address] [place] [address] Adrian 03-16-2023 L -- Specimen: [id number] Received: 03/16/23 Status: NANDADarline Nilam Num: [id number] Spec Type: Surgical Subm Dr: Meseret Cool MD Tissues: A Duodenum - Biopsy (DUODENAL BX) B GASTRIC FOR HP (GASTRIC HP) C Gastric Biopsy (GASTRIC POLYP) D Colon Biopsy (RANDOM BX) Procedures: TOM/Chris, Gross/Micro L4/4, H PYLORI -- Age/ Patient Sex Location Account Attending Physician -- Amita Gaxiolamarie 53/F [id number] Meseret Cool MD -- SPEC NUM: [id number] RECD: 03/16/23 STATUS: KYLE HERNANDEZRenay NUM: [id number] GILMAR: 03/16/23 DR: Meseret Cool MD ENTERED: 03/16/[address] [facility] [address]: SPEC TYPE: Surgical DEPT: S ORDERED: [...] for H. pylori (immunohistochemical stain) -- Specimen: [id number] Received: 03/16/23 Status: SOUT Req Num: [id number] Spec Type: Surgical Subm Dr: Meseret Cool MD Tissues: A Duodenum - Biopsy (DUODENAL BX) B GASTRIC FOR HP (GASTRIC HP) C Gastric Biopsy (GASTRIC POLYP) D Colon Biopsy (RANDOM BX) Procedures: HE/8, Gross/Micro L4/4, H PYLORI -- Patient: Patty Gaxiola [id number] (Continued) -- Specimen: [id number] Received: 03/16/23 (Continued) Pathological Diagnosis (Continued) Signed (signature on file) Glen Selby MD 03/21/23 1152 -- Specimen: [id number] Received: 03/16/23 Status: KYLE Demarco Num: [id number] Spec Type: Surgical Subm Dr: Meseret Cool MD Tissues: A Duodenum - Biopsy (DUODENAL BX) B GASTRIC FOR HP (GASTRIC HP) C Gastric Biopsy (GASTRIC POLYP) D Colon Biopsy (RANDOM BX) Procedures: HE/8, Gross/Micro L4/4, H PYLORI -- Patient: Patty Gaxiola [id number] (Continued) -- Specimen: [id number] Received: 03/16/23-1352 (Continued) Pathological Diagnosis (Continued) D. Colon, biopsy: [...] examination confi (more content not included)... Normal [facility] CBC AUTO DIFFon 01-18-2023 BASO # 0.1 103/ul Normal 0.0-0.1 [facility] Comment on above: Performed By: #### C BC #### [facility] [address] [place] [address] Dr. Vasyl Irving Basophils/100 WBC (Bld) 1.0 % Normal 0.2-2.0 [facility] Comment on above: Performed By: #### C BC #### [facility] [address] [place] [address] Dr. Vasyl Irving EO # 0.1 103/ul Normal 0.0-0.7 [facility] Comment on above: Performed By: #### C BC #### [facility] [address] [place] [address] Dr. Vasyl Irving Eosinophils/100 WBC (Bld) 2.0 % Normal 0.9-7.0 [facility] Comment on above: Performed By: #### C BC #### [facility] [address] [place] [address] Dr. Vasyl Irving Erythrocyte distribution width (RBC) [Ratio] 12.7 % Normal 11.0-15.0 [facility] Comment on above: Performed By: #### C BC #### [facility] [address] [place] [address] Dr. Vasyl Irving Hematocrit (Bld) [Volume fraction] 42.6 % Normal 36.0-48.0 [facility] Comment on above: Performed By: #### C BC #### [facility] [address] [place] [address] Dr. Vasyl Irving Hemoglobin (Bld) [Mass/Vol] 14.2 g/dL Normal 12.0-16.0 [facility] Comment on above: Performed By: #### C BC #### [facility] [address] [place] [address] Dr. Vasyl Irving IG # 0.01 10e3/ul Normal 0.00-0.03 [facility] Comment on above: Performed By: #### C BC #### [facility] [address] [place] [address] Dr. Vasyl Irving IG % 0.2 % Normal 0.0-0.5 [facility] Comment on above: Performed By: #### C BC #### [facility] [address] [place] [address] Dr. Vasyl Irving LYMPH # 2.2 103/ul Normal 1.2-3.8 [facility] Comment on above: Performed By: #### C BC #### [facility] [address] [place] [address] Dr. Vasyl Irving Lymphocytes/100 WBC (Bld) 42.2 % Normal 20.5-60.0 [facility] Comment on above: Performed By: #### C BC #### [facility] [address] [place] [address] Dr. Vasyl Irving MANUAL DIFF REQ NO Normal [facility] Comment on above: Performed By: #### C BC #### [facility] [address] [place] [address] Dr. Vasyl Irving MCH (RBC) [Entitic mass] 31.7 pg Normal 26.7-34.0 [facility] Comment on above: Performed By: #### C BC #### [facility] [address] [place] [address] Dr. Vasyl Irving MCHC (RBC) [Mass/Vol] 33.3 g/dL Normal 29.9-35.2 [facility] Comment on above: Performed By: #### C BC #### [facility] [address] [place] [address] Dr. Vasyl Irving MCV (RBC) [Entitic vol] 95.1 fL Normal 81.0-99.0 [facility] Comment on above: Performed By: #### C BC #### [facility] [address] [place] [address] Dr. Vasyl Irving MONO # 0.3 103/ul Normal 0.3-0.8 [facility] Comment on above: Performed By: #### C BC #### [facility] [address] [address] [address] Vasyl Irving Monocytes/100 WBC (Bld) 5.9 % Normal 1.7-12.0 [facility] Comment on above: Performed By: #### C BC #### [facility] [address] [address] [address] Vasyl Irving NEUT # 2.5 103/ul Normal 1.4-6.5 [facility] Comment on above: Performed By: #### C BC #### [facility] [address] [place] [address] Dr. Vasyl Irving Neutrophils/100 WBC (Bld) 48.7 % Normal 43.0-75.0 [facility] Comment on above: Performed By: #### C BC #### [facility] [address] [place] [address] Dr. Vasyl Irving Platelet mean volume (Bld) [Entitic vol] 9.7 fL Normal 9.5-13.5 [facility] Comment on above: Performed By: #### C BC #### [facility] [address] [place] [address] Dr. Vasyl Irving PLT 220 103/ul Normal 150-450 [facility] Comment on above: Performed By: #### C BC #### [facility] [address] [place] [address] Dr. Vasyl Irving RBC 4.48 106/ul Normal 4.20-5.40 [facility] Comment on above: Performed By: #### C BC #### [facility] [address] [place] [address] Dr. Vasyl Irving WBC 5.1 103/ul Normal 4.0-11.0 [facility] Comment on above: Performed By: #### C BC #### [facility] [address] [place] [address] Dr. Vasyl Irving CRPon 01-18-2023 CRP [Mass/Vol] mg/L Normal <=1.0 [facility] Comment on above: Performed By: #### C RP, TSH #### [facility] [address] [place], [place] [address] Dr. Vasyl Irving SED RATE WESTBANNERRENon 2022 SED RATE 13 mm/hr Normal <=30 [facility] Comment on above: Performed By: #### S EDR #### [facility] [address] [address] [address] Vasyl Irving TSHon 01-18-2023 TSH 1.088 uIU/mL Normal 0.358-3.74 0 [facility] Comment on above: Performed By: #### C RP, TSH #### [facility] [address] [address] [address] Vasyl Irving MG MAMM SCREEN 3D EDWARD CADon 01-09-2023 MG MAMM SCREEN 3D EDWARD CAD Patient: PATTY GAXIOLA Exam Date: 01/09/2023 : 1970 Gender:F Ordering : DR BRIJESH KEATING . Admission #: [id number] Family : Order #: [id number] CLICK HERE TO VIEW EXAM RADIOLOGY REPORT PROCEDURE: MAMMOGRAM SCREENING 3D BILATERAL CAD COMPARISON: MG MAMM SCREEN 3D EDWARD CAD, 01/05/2022. MG MAMM SCREEN 3D EDWARD CAD, 01/04/2021. MG MAMM SCREEN 3D EDWARD CAD, 01/03/2020. MG MAMM SCREEN EDWARD W CAD, 01/01/2019. INDICATIONS: Screening mammography Calculator Name NCI Breast Cancer Risk Assessment Tool 5 Year Breast Cancer Risk 1.00% Lifetime Breast Cancer Risk 7.70% Personal Breast Cancer No Personal Ovarian Cancer No Treatments None Family Cancers None LOCATION: [facility] BREAST COMPOSITION: Heterogeneously dense,which may obscure [...] Jose Easley M.D. on 01/09/2023 at 12:05 [facility] PAP ACOG PANEL 2: 30 to 65on 11-09-2022 . . Normal [facility] Comment on above: Result Comment: Perf ormed at: WB Performed By: #### 4 [id number] #### [facility] [address] [place] [address] Dr. Vasyl Irving Age Gdln ACOG Testing 30-65 Normal [facility] Comment on above: Performed By: #### 4 [id number] #### [facility] [address] [address] [address] Vasyl Irving DIAGNOSIS: Comment Normal [facility] Comment on above: Result Comment: NEGA TIVE FOR INTRAEPITHELIAL LESION OR MALIGNANCY. Performed at: WB Performed By: #### 4 [id number] #### [facility] [address] [place] [address] Dr. Vasyl Irving HPV Aptima Negative Normal Negative [facility] Comment on above: Result Comment: This nucleic acid amplification test detects fourteen high-risk HPV types (16,18,31,33,35,39,45,51,52,56,58,59,66,68) without differentiation. Performed at: =G Performed By: #### 4 [id number] #### [facility] [address] [address] [address] Vasyl Irving HPV Genotype Reflex Comment [facility] Comment on above: Result Comment: Crit eria not met, HPV Genotype not performed. Performed at: WB Performed By: #### 4 [id number] #### [facility] [address] [place] [address] Dr. Vasyl Irving Methodology: Comment Normal [facility] Comment on above: Result Comment: This liquid based ThinPrep(R) pap test was screened with the use of an image guided system. Performed at: WB Performed By: #### 4 [id number] #### [facility] [address] [place] [address] Dr. Vasyl Irving Note: Comment Normal [facility] Comment on above: Result Comment: The Pap smear is a screening test designed to aid in the detection of premalignant and malignant conditions of the uterine cervix. It is not a diagnostic procedure and should not be used as the sole means of detecting cervical cancer. Both false-positive and false-negative reports do occur. . Performed at: WB Performed By: #### 4 [id number] #### [facility] [address] [address] [address] Vasyl Irving Performed by: Comment Normal [facility] Comment on above: Result Comment: Ebenezer Wang, Plastics Design Engineer (ASCP) Performed at: WB Performed By: #### 4 [id number] #### [facility] [address] [place] [address] Dr. Vasyl Irving Specimen adequacy: Comment Normal [facility] Comment on above: Result Comment: Sati sfactory for evaluation. No endocervical cells are present. This is consistent with a history of hysterectomy. Performed at: WB Performed By: #### 4 [id number] #### [facility] [address] [place] [address] Dr. Vasyl Irving STOOL CULTUREon 07-29-2022 Campylobacter Culture Final report Normal [facility] Comment on above: Performed By: #### C XSTOOL #### [facility] [address] [place] [address] Dr. Vasyl Irving E coli Shiga Toxin EIA Negative Normal Negative [facility] Comment on above: Performed By: #### C XSTOOL #### [facility] [address] [place] [address] Dr. Vasyl Irving Result 1 Comment Normal [facility] Comment on above: Result Comment: No S almonella or Shigella recovered. Performed By: #### C XSTOOL #### [facility] [address] [place] [address] Dr. Vasyl Irving Result Comment: No C ampylobacter species isolated. Salmonella/Shigel la Screen Final report Normal [facility] Comment on above: Performed By: #### C XSTOOL #### [facility] [address] [place] [address] Dr. Vasyl Irving Urinalysis - AUTOMATEDon Appearance (U) thick [employer] Other Bilirubin Ql (U) Negative Multifonds ast [employer] Other Color (U) red/orange [facility] Other Glucose Ql (U) 100 [facility] Other Hemoglobin Ql (U) moderate [employer] Other Ketones Ql (U) trace [facility] Other Leukocyte esterase Test strip Ql (U) large [facility] Other Nitrite Ql (U) Positive [facility] Other pH (U) 5.0 [pH] [facility] Other Protein Ql (U) 100 [employer] Other Specific gravity (U) [Rel density] 1.010 [facility] Other Urobilinogen (U) [Mass/Vol] 2.0 mg/dL [facility] Other Urinalysis - AUTOMATED [facility] Other DIGITAL MAMM SCREENING W/ TO Agudelo 01-04-2021 DIGITAL MAMM SCREENING W/ ANIVAL Patient Name: PATTY GAXIOLA STUDY: Digital mammography screening with anival; 01/04/2021 9:17 am ACCESSION NUMBER(S): [id number] ORDERING CLINICIAN: FELY MONROY INDICATION: Screening. COMPARISON: Comparison is made to [...] Screening. Electronically signed by: MAYANK SALES MD [facility] Mamm - Screening Mammogram w / Tomosynthesison 01-04-2021 MG Breast Screening Normal [facility] [employer] Work Phone: [facility] - Procedure Visiton 0 12-15-2020 [facility] - Procedure Visit Diagnoses/Problems Encounter for preventive [...] DIRECTED. Vitals Vital Signs Recorded: 15Dec2020 08:54AM Wqzitrjxugi14.8 F Nvtglmpi514 Oautsbnud73 Height5 ft 7.5 in Rwkiiq994 lb 3.65 oz BMI Hytferbcqh59.33 BSA Calculated1.74 LMPhsyter Physical Exam A+O x [...] and is (more content not included)... Normal Next Caller [facility] - Office Visiton 04-22 [facility] - Office Visit Chief Complaint PATIENT HERE [...] changes in prescribing following [facility]. Saw Dr. Barnes a month ago and began premarin. Pt. [...] 4 times daily PRN abdominal cramping; Therapy: 30Ecs1721 to (Evaluate:68Iyv6017) Requested for: 14Pkt1927; Last Rx:[id number] Ordered Rx By: Yan Winslow; Dispense: 8 Days ; #:30 Tablet; Refill: 1;For: Epigastric pain; ELADIO = N; Verified Transmission to [facility] #[id number]; Last Updated By: Wang Wolf; 05/06/2020 11:44:32 AM Famotidine 20 MG Oral Tablet; Take 1 tablet twice daily; Therapy: 71Ump3491 to (Evaluate:77Yrk3431) Requested for: 03Frg8516; Last Rx:[id number] Ordered Rx By: Yan Winslow; Dispense: 30 Days ; #:60 Tablet; Refill: 1;For: Epigastric pain; ELADIO = N; Verified Transmission to [facility] #[id number]; Last Updated By: Doochoo; 05/06/2020 11:44:29 AM Nortriptyline HCl - 25 MG Oral Capsule; TAKE 1 CAPSULE AT BEDTIME; Therapy: 25Oct2019 to (Evaluate:19Oct2020) Requested for: 25Oct2019; Last Rx:25Oct2019 Ordered Rx By: Yan Winslow; Dispense: 90 Days ; #:90 Capsule; Refill: 3;For: Health Maintenance; ELADIO = N; Verified Transmission to [facility] #6[facility]; Last Updated By: Doochoo; 10/25/2019 11:30:52 AM Pantoprazole Sodium 40 MG Oral Tablet Delayed Release; TAKE 1 TABLET DAILY Requested for: 03Feb2020; Last Rx:03Feb2020 Ordered Rx By: Yan Winslow; Dispense: 90 Days ; #:90 Tablet; Refill: 3;For: Health Maintenance; ELADIO = N; Verified Transmission to [facility]6167; Last Updated By: Doochoo; 02/03/2020 11:36:26 AM Levothyroxine Sodium 100 MCG Oral Tablet; TAKE 1 TABLET DAILY Requested for: 03Feb2020; Last Rx:03Feb2020 Ordered Rx By: Yan Winslow; Dispense: 90 Days ; #:90 Tablet; Refill: 3;For: Hypothyroidism, unspecified type; ELADIO = N; Verified Transmission to [facility] #6167; Last Updated By: Doochoo; 02/03/2020 11:36:28 AM Oxybutynin (more content not included)... Normal [facility] CBC AND DIFFERENTIALon 05-06 Basophils (Bld) [#/Vol] 0.00 10*3/uL Normal 0.00 - 0.10 [facility] Comment on above: Performed By: #### C BCDF #### [address] [address] Basophils/100 WBC (Bld) 0.7 % Normal 0.0 - 2.0 [facility] Comment on above: Performed By: #### C BCDF #### [address] [address] Eosinophils (Bld) [#/Vol] 0.10 10*3/uL Normal 0.00 - 0.70 [facility] Comment on above: Performed By: #### C BCDF #### [address] [address] Eosinophils/100 WBC (Bld) 2.2 % Normal 0.0 - 6.0 [facility] Comment on above: Performed By: #### C BCDF #### [address] [address] Erythrocyte distribution width (RBC) [Ratio] 13.6 % Normal 11.5 - 14.5 [facility] Comment on above: Performed By: #### C BCDF #### [address] [address] Hematocrit (Bld) [Volume fraction] 43.7 % Normal 36.0 - 46.0 [facility] Comment on above: Performed By: #### C BCDF #### [address] [address] Hemoglobin (Bld) [Mass/Vol] 14.4 g/dL Normal 12.0 - 16.0 [facility] Comment on above: Performed By: #### C BCDF #### [address] [address] Lymphocytes (Bld) [#/Vol] 1.80 10*3/uL Normal 1.20 - 4.80 [facility] Comment on above: Performed By: #### C BCDF #### [address] [address] Lymphocytes/100 WBC (Bld) 30.2 % Normal 13.0 - 44.0 [facility] Comment on above: Performed By: #### C BCDF #### [address] [address] MCHC (RBC) [Mass/Vol] 32.9 g/dL Normal 32.0 - 36.0 [facility] Comment on above: Performed By: #### C BCDF #### [address] [address] MCV (RBC) [Entitic vol] 97 fL Normal 80 - 100 [facility] Comment on above: Performed By: #### C BCDF #### [address] [address] Monocytes (Bld) [#/Vol] 0.30 10*3/uL Normal 0.10 - 1.00 [facility] Comment on above: Performed By: #### C BCDF #### [address] [address] Monocytes/100 WBC (Bld) 5.6 % Normal 2.0 - 10.0 [facility] Comment on above: Performed By: #### C BCDF #### [address] [address] Neutrophils (Bld) [#/Vol] 3.60 10*3/uL Normal 1.20 - 7.70 [facility] Comment on above: Result Comment: Perc ent differential counts (%) should be interpreted in the context of the absolute cell counts (cells/L). Performed By: #### C BCDF #### [address] [address] Neutrophils/100 WBC (Bld) 61.3 % Normal 40.0 - 80.0 [facility] Comment on above: Performed By: #### C BCDF #### [address] [address] Platelets (Bld) [#/Vol] 224 10*3/uL Normal 150 - 450 [facility] Comment on above: Performed By: #### C BCDF #### [address] [address] RBC 4.52 x10E12/L Normal 4.00 - 5.20 [facility] Comment on above: Performed By: #### C BCDF #### [address] [address] WBC (Bld) [#/Vol] 5.8 10*3/uL Normal 4.4 - 11.3 [facility] Comment on above: Performed By: #### C BCDF #### [address] [address] COMPREHENSIVE PANELon 2019 Albumin [Mass/Vol] 4.2 g/dL Normal 3.4 - 5.0 [facility] Comment on above: Performed By: #### C MP #### [address] [address] ALP [Catalytic activity/Vol] 64 U/L Normal 33 - 110 [facility] Comment on above: Performed By: #### C MP #### [address] [address] ALT [Catalytic activity/Vol] 17 U/L Normal 7 - 45 [facility] Comment on above: Result Comment: Sandie ents treated with Sulfasalazine may generate falsely decreased results for ALT. Performed By: #### C MP #### [address] [address] Anion gap [Moles/Vol] 10 mmol/L Normal 10 - 20 [facility] Comment on above: Performed By: #### C MP #### [address] [address] AST [Catalytic activity/Vol] 23 U/L Normal 9 - 39 [facility] Comment on above: Performed By: #### C MP #### [address] [address] Bilirubin [Mass/Vol] 0.6 mg/dL Normal 0.0 - 1.2 [facility] Comment on above: Performed By: #### C MP #### [address] [address] Calcium [Mass/Vol] 9.3 mg/dL Normal 8.6 - 10.3 [facility] Comment on above: Performed By: #### C MP #### [address] [address] Chloride [Moles/Vol] 103 mmol/L Normal 98 - 107 [facility] Comment on above: Performed By: #### C MP #### [address] [address] Creatinine [Mass/Vol] 0.55 mg/dL Normal 0.50 - 1.05 [facility] Comment on above: Performed By: #### C MP #### [address] [address] GFR- AM. >60 Normal >60 [facility] Comment on above: Result Comment: CALC ULATIONS OF ESTIMATED GFR ARE PERFORMED USING THE MDRD STUDY EQUATION FOR THE IDMS-TRACEABLE CREATININE METHODS. CLIN CHEM 2007;53:766-72 Performed By: #### C MP #### [address] [address] GFR-NON AM. >60 Normal >60 [facility] Comment on above: Performed By: #### C MP #### [address] [address] Glucose [Mass/Vol] 58 mg/dL Low 74 - 99 [facility] Comment on above: Performed By: #### C MP #### [address] [address] HCO3 (Bld) [Moles/Vol] 30 mmol/L Normal 21 - 32 [facility] Comment on above: Performed By: #### C MP #### [address] [address] Potassium [Moles/Vol] 4.0 mmol/L Normal 3.5 - 5.3 [facility] Comment on above: Performed By: #### C MP #### [address] [address] Protein [Mass/Vol] 6.7 g/dL Normal 6.4 - 8.2 [facility] Comment on above: Performed By: #### C MP #### [address] [address] Sodium [Moles/Vol] 139 mmol/L Normal 136 - 145 [facility] Comment on above: Performed By: #### C MP #### [address] [address] Urea nitrogen [Mass/Vol] 14 mg/dL Normal 6 - 23 [facility] Comment on above: Performed By: #### C MP #### [place] [id number] LIPASEon 05-06-2020 Lipase [Catalytic activity/Vol] 22 U/L Normal 9 - 82 [facility] Comment on above: Result Comment: Francheska puncture immediately after or during the administration of Metamizole may lead to falsely low results. Testing should be performed immediately prior to Metamizole dosing. Performed By: #### L IPAS #### [address] [address] Office Visit (Primary Care T xt/Forms)on 05-06-2020 Follow-up visit Diagnoses/Problems Assessed Epigastric pain (789.06) (R10.13) Fatigue (780.79) (R53.83) Nausea in adult (787.02) (R11.0) Orders Epigastric pain Start: Dicyclomine HCl - 20 MG Oral Tablet; TAKE 1 TABLET 4 times daily PRN abdominal cramping Complete Blood Count + Differential; Status:Active; Requested for:[id number]; Start: Famotidine 20 MG Oral Tablet; Take 1 tablet twice daily Comprehensive Metabolic Panel; Status:Active; Requested for:[id number]; Lipase, Serum; Status:Active; Requested for:33Msh5994; Epigastric pain, Nausea in adult Gastroenterology Referral Evaluation and Treatment Evaluate AND Treat Status: Active Requested for: [id number] Chief Complaint nausea x 2 weeks but [...] Allergies Medication erythromycin Vitals Vital Signs Recorded: 20Bec2251 11:21AM Temperature: 97.3 F Heart Rate: 70 [...] content not included)... Normal [facility] PICK UP MAN - Office Visiton 03-21 PICK UP MAN - Office Visit Chief Complaint Patient is [...] Maintenance; ELADIO = N; [facility]; Last Updated By: Doochoo; 10/25/2019 11:30:52 AM Oxybutynin Chloride 5 MG Oral Tablet; Take 1 tablet daily Requested for: 03Feb2020; Last Rx:[id number] Ordered Rx By: Yan Winslow; Dispense: 90 Days ; #:90 Tablet; Refill: 3;For: Health Maintenance; ELADIO = N; [facility]; Last Updated By: Doochoo; 02/03/2020 11:36:38 AM Pantoprazole Sodium 40 MG Oral Tablet Delayed Release; TAKE 1 TABLET DAILY Requested for: 03Feb2020; Last Rx:[id number] Ordered Rx By: Yan Winslow; Dispense: 90 Days ; #:90 Tablet; Refill: 3;For: Health Maintenance; ELADIO = N; Verified Transmission to [facility]; Last Updated By: Doochoo; 02/03/2020 11:36:26 AM Levothyroxine Sodium 100 MCG Oral Tablet; TAKE 1 TABLET DAILY Requested for: 03Feb2020; Last Rx:[id number] Ordered Rx By: Yan Winslow; Dispense: 90 Days ; #:90 Tablet; Refill: 3;For: Hypothyroidism, unspecified type; ELADIO = N; Verified Transmission to [facility] #2373; Last Updated By: Wang Wolf; 02/03/2020 11:36:28 AM Olopatadine HCl - 0.1 % Ophthalmic Solution; Therapy: [id number] to Recorded Rx By: BECCA; Dispense: 30 [...] 11/07/2018 8:35:43 AM Vitals Vital Signs Recorded: 83Hbl4801 01:13PM Ycgidaarexc86.1 F Haiqgrof096 Kkiizxsce38 Height5 ft 7.5 in Ecyfpw71.8 kg BMI Uiqdweuhty47.72 BSA Calculated (more content not included)... Normal [...] Feb 03 2020 11:39AM EST (Author) Normal Next Caller Provider Note - ED v2on Provider Note [...] has increased fluid intake and is taking iifm-ofe-okaupsy medications with little relief. No other complaints.. [...] ADENOIDS/ COMPLETE HYSTRECTOMY Description:RT FOOT RECONSTRUCTION/ D&C PICK UP MAN: Is : no Is : no REVIEW [...] Updated: 28-Jan-2020 10:57 by Jeff Aden (PAC) [facility] 06-05-2019 Interpreted by: KERWIN MAE06/05/19 16:54MRN: [id number] Name: PATTY GAXIOLA STUDY:CT ABDOMEN AND PELVIS WITH CONTRAST; 06/05/2019 [...] pelvis.Electronically signed by: BLANCA 06/05/19 16:54 Normal [facility] Work Phone: Please click on the link to view the study images Normal [facility] Work Phone: CLOST DIFF. TOXIN, PCRon C. difficile toxin genes SANAM+probe Ql (Stl) Canceled [facility] Work Phone: Comment on above: This assay [...] PROPER TESTING. CLOST DIFF. TOXIN, PCR Canceled [facility] Work Phone: Comment on above: TEST CLOST DIFF. TOX IN, PCR WAS CANCELLED, 06/05/2019 01:14 ONLY PAM-RADHA AND PARA-MARTINA RECEIVED. NEED FRESH STOOL FOR PROPER TESTING. Otheron 06-04-2019 Negative NEGATIVE [facility] Work Phone: Comment on above: SOURCE: STOOL PATHOGEN PCR PANELon 1 Campylobacter sp DNA.diarrheagenic SANAM+probe Ql (Stl) NOT DETECTED See Below [facility] [employer] [facility] Work Phone: Comment on above: Reference Range: NOT DETECTED E. coli stx1 gene SANAM+probe Ql (Unsp spec) NOT DETECTED See Below [facility] Work Phone: Comment on above: Reference Range: NOT DETECTED E. coli stx2 gene SANAM+probe Ql (Unsp spec) NOT DETECTED See Below [facility] Work Phone: Comment on above: Reference Range: NOT DETECTED Norovirus genogroup I and II RNA SANAM+probe Nom (Stl) NOT DETECTED See Below [facility] Work Phone: Comment on above: Reference Range: NOT DETECTED Rotavirus RNA SANAM+probe Nom (Stl) NOT DETECTED See Below [facility] Work Phone: Comment on above: Reference Range: [...] Ql (Unsp spec) NOT DETECTED See Below [facility] Work Phone: Comment on above: Reference Range: NOT DETECTED Vibrio sp DNA SANAM+probe Nom (Unsp spec) NOT DETECTED See Below [facility] Work Phone: Comment on above: Reference Range: NOT DETECTED Yersinia sp DNA SANAM+probe Nom (Unsp spec) NOT DETECTED See Below [facility] Work Phone: Comment on above: SOURCE: Reference Ra nge: NOT DETECTED STOOL PATHOGEN PCR PANEL NOT DETECTED See Below [facility] Work Phone: Comment on above: Reference Range: NOT DETECTED Complete Blood Count + Diffe kofi 06-03-2019 Basophils (Bld) [#/Vol] 0.00 {x10E9/L} See Below [facility] Work Phone: Comment on above: Reference Range: 0.0 0 - 0.10 Basophils/100 WBC (Bld) 0.9 % 0.0 - 2.0 -[facility]ll[facility] Work Phone: Eosinophils (Bld) [#/Vol] 0.10 {x10E9/L} See Below [facility] Work Phone: Comment on above: Reference Range: 0.0 0 - 0.70 Eosinophils/100 WBC (Bld) 1.7 % 0.0 - 6.0 -[facility]llie [facility] Work Phone: Erythrocyte distribution width (RBC) [Ratio] 13.4 % See Below [facility] Work Phone: Comment on above: Reference Range: 11. 5 - 14.5 Hematocrit (Bld) [Volume fraction] 44.9 % See Below [facility] Work Phone: Comment on above: Reference Range: 36. 0 - 46.0 Hemoglobin (Bld) [Mass/Vol] 14.9 g/dL See Below [facility] Work Phone: Comment on above: Reference Range: 12. 0 - 16.0 Lymphocytes (Bld) [#/Vol] 2.00 {x10E9/L} See Below [facility] Work Phone: Comment on above: Reference Range: 1.2 0 - 4.80 Lymphocytes/100 WBC (Bld) 37.8 % See Below [facility] Work Phone: Comment on above: Reference Range: 13. 0 - 44.0 MCHC (RBC) [Mass/Vol] 33.1 g/dL See Below [facility] Work Phone: Comment on above: Reference Range: 32. 0 - 36.0 MCV (RBC) [Entitic vol] 96 fL 80 - 100 [facility] Work Phone: Monocytes (Bld) [#/Vol] 0.30 {x10E9/L} See Below [facility] Work Phone: Comment on above: Reference Range: 0.1 0 - 1.00 Monocytes/100 WBC (Bld) 5.9 % 2.0 - 10.0 [facility] Work Phone: Neutrophils (Bld) [#/Vol] 2.80 {x10E9/L} See Below [facility] Work Phone: Comment on above: Reference Range: 1.2 0 - 7.70 Neutrophils/100 WBC (Bld) 53.7 % See Below [facility] Work Phone: Comment on above: Reference Range: 40. 0 - 80.0 Platelets (Bld) [#/Vol] 252 {x10E9/L} 150 - 450 [facility] Work Phone: RBC (Bld) [#/Vol] 4.69 {x10E12/L} See Below [facility] Work Phone: Comment on above: Reference Range: 4.0 0 - 5.20 WBC (Bld) [#/Vol] 5.3 {x10E9/L} 4.4 - 11.3 [facility] Work Phone: Lipase, Serumon 06-03-2019 Lipase [Catalytic activity/Vol] 15 U/L 9 - 82 [facility] Work Phone: Comment on above: Venipuncture immedia tely after or during the administration of Metamizole may lead to falsely low results. Testing should be performed immediately prior to Metamizole dosing. Metabolic Panelon 06-03-2019 ALP [Catalytic activity/Vol] 75 U/L 33 - 110 [facility] Work Phone: Anion gap [Moles/Vol] 10 mmol/L 10 - 20 [facility] Work Phone: Bilirubin [Mass/Vol] 0.6 mg/dL 0.0 - 1.2 [facility] Work Phone: Calcium [Mass/Vol] 9.8 mg/dL 8.6 - 10.3 [facility] Work Phone: Chloride [Moles/Vol] 106 mmol/L 98 - 107 [facility] Work Phone: CO2 [Moles/Vol] 30 mmol/L 21 - 32 -[facility] Work Phone: Creatinine [Mass/Vol] 0.61 mg/dL See Below [facility] Work Phone: Comment on above: Reference Range: 0.5 0 - 1.05 Glucose [Mass/Vol] 80 mg/dL 74 - 99 [facility] Work Phone: Potassium [Moles/Vol] 4.1 mmol/L 3.5 - 5.3 [facility] [employer] [facility] Work Phone: Protein [Mass/Vol] 7.2 g/dL 6.4 - 8.2 -[facility] [employer] [facility] Work Phone: Sodium [Moles/Vol] 142 mmol/L 136 - 145 [facility] Work Phone: Urea nitrogen [Mass/Vol] 13 mg/dL 6 - 23 [facility] Work Phone: Otheron 06-03-2019 Albumin BCP dye [Mass/Vol] 4.6 g/dL 3.4 - 5.0 -[facility] Work Phone: ALT With P-5'-P [Catalytic activity/Vol] 13 U/L 7 - 45 [facility] Work Phone: Comment on above: Patients treated wit h Sulfasalazine may generate falsely decreased results for ALT. AST With P-5'-P [Catalytic activity/Vol] 17 U/L 9 - 39 -[facility] Work Phone: >60 >60 [facility] Work Phone: Comment on above: CALCULATIONS OF VAUGHN MATED GFR ARE PERFORMED USING THE MDRD STUDY EQUATION FOR THE IDMS-TRACEABLE CREATININE METHODS. CLIN CHEM 2007;53:766-72 IGP W/hpv Rfx [id number] 01-02 Diagnosis: See Ref Lab Report Normal [facility] Comment on above: Order Comment: Thin Prep. Hysterectomy Performed By: #### 2 [id number] #### [facility] [place] [id number] [place] Mamm Screen w/CAD if perf ormed bilaton 01-01-2019 [place] Mamm Screen w/CAD if performed bilat Exam Date/Time: 01/01/2019 14:52 EDT Reason for Exam: SCREENING;Screening Report STUDY: Digital mammography screening; 01/01/2019 2:52 pm ACCESSION NUMBER(S): [id number] ORDERING CLINICIAN: Chance Barnes INDICATION: Screening. COMPARISON: Comparison is made to [...] Category 1-Negative Recommendation: Normal interval follow-up Normal [facility] [place] [facility] 12-25-2018 [place] [facility] 850 Date of Procedure: 12/25/2018 Pathologist: PATHOLOGIST MACK Date Reported: 01/01/2019 Date Received: 12/26/2018 Submitting Physician: CHANCE BARNES MD FINAL CYTOLOGICAL INTERPRETATION A. THINPREP PAP Vaginal Reflex - Ascus only: Specimen Adequacy: SPECIMEN PROCESSED AND EXAMINED, BUT UNSATISFACTORY FOR EVALUATION OF EPITHELIAL ABNORMALITY BECAUSE OF PAUCITY OF CELLULARITY. NO INTERPRETATION GIVEN. REPEAT STUDY/FURTHER INVESTIGATION IS SUGGESTED - VAGINA. Note: Paucity of cellularity is caused by an interfering lubricant present at time of Pap test collection. Electronically Signed Out By [facility], Cytology//MXG By the signature on this [...] only Normal [facility] MRI Brain w/ + w/o Contrasto n 11-19-2018 MRI Brain w/ + w/o Contrast Exam Date/Time: 11/19/2018 14:18 EDT Reason for Exam: DEMYELINATING DISEASE Report STUDY: MRI Brain w/ + w/o Contrast; 11/19/2018 2:18 pm INDICATION: DEMYELINATING DISEASE. COMPARISON: None. ACCESSION NUMBER(S): [id number] ORDERING CLINICIAN: Ba Callahan TECHNIQUE: Axial T2, [...] by: Freya Sarmiento DO Technologist: RADHA Normal [facility] MRI Spine Cervical w/ + w/o Contraston 11-19-2018 MRI Spine Cervical w/ + w/o Contrast Exam Date/Time: 11/19/2018 14:17 EDT Reason for Exam: DEMYELINATING DISEASE Report STUDY: MRI Spine Cervical w/ + w/o Contrast; 11/19/2018 2:17 pm INDICATION: DEMYELINATING DISEASE. COMPARISON: None. ACCESSION NUMBER(S): [id number] ORDERING CLINICIAN: Ba Callahan TECHNIQUE: Sagittal T1, [...] by: Freya Sarmiento DO Technologist: RADHA Normal [facility] Lab Miscellaneouson 11-16-19 19 Status See Ref Lab Report Normal [facility] Comment on above: Performed By: #### 2 [id number] #### [facility] [address] [place] [address] Status See Ref Lab Report Normal [facility] Comment on above: Performed By: #### 2 [id number] #### [facility] [address] [place] [address] U Prot Electroon 11-12-2018 M-Feng Percent Not Observed Normal Not Observed [facility] Comment on above: Performed By: #### 2 [id number] #### [facility] [address] [place] [address] Protein mass conc Comment Normal [facility] Comment on above: Result Comment: Protein electrophoresis scan will follow via computer, mail, or impact retail service merchandiser delivery. Performed At: [facility] [id number] Kasandra Quinn PhD Ph:[phone] Performed By: #### 2 [id number] #### [facility] [address] [place] [address] Protein mass conc 14.5 mg/dL Normal Not Estab. [facility] Comment on above: Performed By: #### 2 [id number] #### [facility] [address] [place] [address] U Albumin 24.4 % Normal [facility] Comment on above: Performed By: #### 2 142215 #### [facility] [address] [place] [address] U Alpha 1 Glob 3.3 % Normal [facility] Comment on above: Performed By: #### 2 857789 #### [facility] [address] [place] [address] U Alpha 2 Glob 21.3 % Normal [facility] Comment on above: Performed By: #### 2 832875 #### [facility] [address] [place] [address] U Beta Glob 34.7 % Normal [facility] Comment on above: Performed By: #### 2 086577 #### [facility] [address] [place] [address] U Gamma Glob 16.2 % Normal [facility] Comment on above: Performed By: #### 2 778228 #### [facility] [address] [place] [address] Lab Miscellaneouson 11-09-19 19 Status See Ref Lab Report Normal [facility] Comment on above: Performed By: #### 2 [id number] #### [facility] [address] [place] [address] Test Name urine heavy met Normal [facility] Comment on above: Performed By: #### 2 [id number] #### [facility] [address] [place] [address] SPEon 11-08-2018 Albumin mass conc 4.0 g/dL Normal 2.9-4.4 [facility] Comment on above: Performed By: #### 2 [id number] #### [facility] [address] [place] [address] Albumin/Globulin mass ratio 1.4 {ratio} Normal 0.7-1.7 [facility] Comment on above: Performed By: #### 2 311115 #### [facility] [address] [place] [address] Alpha 1 Glob 0.2 gm/dL Normal 0.0-0.4 [facility] Comment on above: Performed By: #### 2 [id number] #### [facility] [address] [place] [address] Alpha 2 Glob 0.7 gm/dL Normal 0.4-1.0 [facility] Comment on above: Performed By: #### 2 533652 #### [facility] [address] [place] [address] Beta Glob 1.0 gm/dL Normal 0.7-1.3 [facility] Comment on above: Performed By: #### 2 [id number] #### [facility] [address] [place] [address] Gamma Glob 0.9 gm/dL Normal 0.4-1.8 [facility] Comment on above: Performed By: #### 2 [id number] #### [facility] [address] [place] [address] Globulin mass conc (S) 2.8 g/dL Normal 2.2-3.9 [facility] Comment on above: Performed By: #### 2 110980 #### [facility] [address] [place] [address] M-Feng Not Observed Normal Not Observed [facility] Comment on above: Performed By: #### 2 [id number] #### [facility] [address] [place] [address] Protein mass conc Comment Normal [facility] Comment on above: Result Comment: The SPE pattern appears essentially unremarkable. Evidence of monoclonal protein is not apparent. Performed At: [employer] [id number] Kasandra Quinn PhD Ph:[phone] Performed By: #### 2 [id number] #### [facility] [address] [place] [address] Protein mass conc 6.8 g/dL Normal 6.0-8.5 [facility] Comment on above: Performed By: #### 2 [id number] #### [facility] [address] [place] [address] Protein mass conc Comment Normal [facility] Comment on above: Result Comment: Protein electrophoresis scan will follow via computer, mail, or impact retail service merchandiser delivery. Performed At: [place] [id number] [place], [place] [id number] Kasandra Quinn PhD Ph:[phone] Performed By: #### 2 [id number] #### [facility] [place] [address] CRPon 11-07-2018 CRP mass conc 0.13 mg/dL Normal 0.00-1.00 [facility] Comment on above: Performed By: #### 2 [id number] #### [facility] [place] [address] Folateon 11-07-2018 Folate Lvl 19.70 ng/mL Normal >=5.00 [facility] Comment on above: Result Comment: The WHO Technical Consultation on folate and vitamin B12 deficiencies has determined that deficient folate concentrations are considered to be less than 4ng/ml. Performed By: #### 2 [id number] #### [facility] [place] [address] [id number] 11-07-2018 Hemoglobin A1c/Hemoglobin.to peter mass fraction (Bld) 5.2 % Normal 4.0-6.3 [facility] Comment on above: Performed By: #### 2 [id number] #### [facility]ELLE Lozano[facility] [address] [place] [address] Lab Miscellaneouson 11-08-19 19 Test Name paraneoplastic Normal [facility] Comment on above: Performed By: #### 2 [id number] #### LAVELLE [facility]ano[facility] [address] [place] [address] Test Name lyme rfx Normal [facility] Comment on above: Performed By: #### 2 [id number] #### LAVELLE Lozano[facility]se [facility] [place] [id number] Sed Rate Automatedon 019 Sed Rate Automated 12 mm/hr Normal [facility] Comment on above: Result Comment: AGE- SPECIFIC REFERENCE RANGES FOR SEDIMENTATION RATE AUTOMATED REFERENCE RANGE - MM/HR AGE MEN WOMEN 0-2 0-2 - PUBERTY 3-13 3-13 PUBERTY - 50 YRS 0-15 0-20 > 50 YRS 0-20 0-30 Performed By: #### 2 [id number] #### [facility]ELLE Lozano[facility]se [facility] [place] [id number] Vit B12on 11-07-2018 Cobalamin (Vitamin B12) mass conc 995 pg/mL High 180-914 [facility] Comment on above: Performed By: #### 2 [id number] #### [facility]ELLE [facility] [address] [place] [address] Vitamin D 25 Hydroxyon 11-07 Vitamin D 25 Hydroxy 17.0 ng/mL Low 30.0-100.0 [facility] Comment on above: Performed By: #### 2 [id number] #### LAVELLE [facility]ano[facility] [address] [place] [address] 25925 Auto Diffon 09-25-2018 Basophils #/vol (Bld) 0.0 E3/mcL Normal 0.0-0.2 [facility] Comment on above: Order Comment: Order Added by Discern Expert. Performed By: #### 2 [id number] #### LAVELLE LozanoHemo [address] [place] [address] 8[address]16 Basophils/100 WBC (Bld) 1.1 % Normal 0.0-2.0 [facility] Comment on above: Order Comment: Order Added by Discern Expert. Performed By: #### 2 [id number] #### LAVELLE LozanoHemo [address] [place] [address]398 Eos Absolute 0.1 E3/mcL Normal 0.0-0.7 [facility] Comment on above: Order Comment: Order Added by Discern Expert. Performed By: #### 2 [id number] #### LAVELLE LozanoHemo [address] [place] [address]502 Eosinophils/100 WBC (Bld) 3.0 % Normal 0.0-11.0 [facility] Comment on above: Order Comment: Order Added by Discern Expert. Performed By: #### 2 [id number] #### LAVELLE RemHemo [address] [place] [address] Lymphocytes #/vol (Bld) 1.7 E3/mcL Normal 1.2-3.4 [facility] Comment on above: Order Comment: Order Added by Discern Expert. Performed By: #### 2 [id number] #### LAVELLE LozanoHemo [address] [place] [address] Lymphocytes/100 WBC (Bld) 40.9 % Normal 20.0-55.0 [facility] Comment on above: Order Comment: Order Added by Discern Expert. Performed By: #### 2 [id number] #### LAVELLE RemHemo [address] [place] [address] [place] Absolute 0.3 E3/mcL Normal 0.0-0.7 [facility] Comment on above: Order Comment: Order Added by Discern Expert. Performed By: #### 2 [id number] #### LAVELLE LozanoHemo [address] [place] [address] Monocytes/100 WBC (Bld) 7.7 % Normal 0.0-10.0 [facility] Comment on above: Order Comment: Order Added by Discern Expert. Performed By: #### 2 [id number] #### LAVELLE RemHemo [address] [place] [address] Neutro Absolute 2.0 E3/mcL Normal 1.4-6.5 [facility] Comment on above: Order Comment: Order Added by Discern Expert. Performed By: #### 2 [id number] #### LAVELLE RemHemo [address] [place] [address] Neutro Auto 47.3 % Normal 37.0-75.0 [facility] Comment on above: Order Comment: Order Added by Discern Expert. Performed By: #### 2 [id number] #### LAVELLE RemHemo [address] [place] [address] CBC w/ Auto Diffon 9 Erythrocyte distribution width Ratio (RBC) 13.6 % Normal 11.5-14.5 [facility] Comment on above: Performed By: #### 2 [id number] #### LAVELLE RemHemo [address] [place] [address] Hematocrit Volume Fraction (Bld) 45.2 % Normal 36.0-48.0 [facility] Comment on above: Performed By: #### 2 [id number] #### LAVELLE RemHemo [address] [place] [address] Hemoglobin mass conc (Bld) 14.7 g/dL Normal 12.0-16.0 [facility] Comment on above: Performed By: #### 2 [id number] #### LAVELLE RemHemo [address] [place] [address] MCH Entitic mass (RBC) 31.1 pg High 27.0-31.0 [facility] Comment on above: Performed By: #### 2 [id number] #### LAVELLE RemHemo [address] [place] [address] MCHC mass conc (RBC) 32.5 g/dL Low 33.0-37.0 [facility] Comment on above: Performed By: #### 2 [id number] #### LAVELLE RemHemo [address] [place] [address] MCV Entitic volume (RBC) 95.5 fL Normal 78.0-100.0 [facility] Comment on above: Performed By: #### 2 [id number] #### LAVELLE RemHemo [address] [place] [address] Platelet mean volume Entitic volume (Bld) 8.7 fL Normal 7.4-11.0 [facility] Comment on above: Performed By: #### 2 [id number] #### LAVELLE RemHemo [address] [place] [address] Platelets #/vol (Bld) 236 E3/mcL Normal 130-400 [facility] Comment on above: Performed By: #### 2 [id number] #### LAVELLE RemHemo [address] [place] [address] RBC #/vol (Bld) 4.73 E6/mcL Normal 3.90-5.40 [facility] Comment on above: Performed By: #### 2 [id number] #### LAVELLE RemHemo [address] [place] [address] WBC #/vol (Bld) 4.3 E3/mcL Normal 3.6-11.0 [facility] Comment on above: Performed By: #### 2 [id number] #### LAVELLE RemHemo [address] [place] [address] CMPon 09-25-2018 Albumin mass conc 4.5 g/dL Normal 3.4-5.0 [facility] Comment on above: Performed By: #### 2 [id number] #### LAVELLE [employer] [address] [place] [address] Albumin/Globulin mass ratio 1.8 {ratio} Normal 1.1-1.9 [facility] Comment on above: Performed By: #### 2 [id number] #### LAVELLE [employer] [address] [place] [address] Alk Phos 77 Int._Unit/L Normal 33-110 [facility] Comment on above: Performed By: #### 2 [id number] #### [facility] [employer] [address] [place] [address]122 ALT enzyme act/vol 14 Int._Unit/L Normal 7-45 [facility] Comment on above: Performed By: #### 2 [id number] #### LAVELLE [employer] [address] [place] [address]1654 Anion gap molar conc 9 mmol/L Low 10-20 [facility] Comment on above: Performed By: #### 2 [id number] #### [facility] [employer] [address] [place] [address] 45681 AST enzyme act/vol 19 Int._Unit/L Normal 9-39 [facility] Comment on above: Performed By: #### 2 [id number] #### [facility] [employer] [address] [place] [address]7060 Bili Total 0.49 mg/dL Normal 0.00-1.20 [facility] Comment on above: Performed By: #### 2 780457 #### [facility] [employer] [address] [place] [address] 21898 Calcium mass conc 9.8 mg/dL Normal 8.6-10.3 [facility] Comment on above: Performed By: #### 2 073339 #### [facility] [employer] [address] [place] [address]9318 Chloride molar conc 105 mmol/L Normal 98-107 [facility] Comment on above: Performed By: #### 2 [id number] #### [facility] [employer] [address] [place] [address] 81211 CO2 molar conc 30.0 mmol/L Normal 21.0-32.0 [facility] Comment on above: Performed By: #### 2 580334 #### [facility]ELLE [employer] [address] [place] [address]2473 Creatinine mass conc 0.6 mg/dL Normal 0.5-1.1 [facility] Comment on above: Performed By: #### 2 [id number] #### LAVELLE [employer] [address] [place] [address] 69089 Globulin mass conc (S) 3.0 g/dL Normal 2.0-4.0 [facility] Comment on above: Performed By: #### 2 293211 #### [facility]AVELLE [employer] [address] [place] [address] 15815 Glucose mass conc 86 mg/dL Normal 70-99 [facility] Comment on above: Performed By: #### 2 [id number] #### [facility]ELLE [employer] [address] [place] [address] 82525 Potassium molar conc 4.2 mmol/L Normal 3.5-5.3 [facility] Comment on above: Performed By: #### 2 125002 #### [facility]AVELLE [employer] [address] [place] [address] 21894 Protein mass conc 7.0 g/dL Normal 6.4-8.2 [facility] Comment on above: Performed By: #### 2 [id number] #### [facility] [employer] [address] [place], [place] [id number] Sodium molar conc 140 mmol/L Normal 136-145 [facility] Comment on above: Performed By: #### 2 [id number] #### [facility]ELLE [employer] [address] [place] [address]306 Urea nitrogen mass conc 13 mg/dL Normal 6-23 [facility] Comment on above: Performed By: #### 2 [id number] #### LAVELLE [employer] [address] [place] [address]3223 Urea nitrogen/Creatini ne mass ratio 21.7 ratio Normal 5.4-30.0 [facility] Comment on above: Performed By: #### 2 [id number] #### LAVELLE [employer] [address] [place] [address]8585 TSHon 09-25-2018 Thyrotropin Qn 0.02 mcIU/mL Low 0.30-5.60 [facility] Comment on above: Performed By: #### 2 [id number] #### LAVELLE [employer] [address] [place] [address]345 eGFRon 09-25-2018 GFR/1.73 sq M predicted among non-blacks MDRD vol rate/area (S/P/Bld) mL/min/{1.73_m2} Normal [facility] Comment on above: Order Comment: Order added by Discern Expert. Performed By: #### 1 [id number] #### LAVELLE [facility] [address] [place] [address] Vit B12on 08-07-2018 Cobalamin (Vitamin B12) mass conc 784 pg/mL Normal 180-914 [facility] Comment on above: Performed By: #### 2 [id number] #### LAVELLE [employer] [address] [place] [address] TSHon 05-02-2018 Thyrotropin Qn 0.06 mIU/m Low 0.30-5.60 [facility] Comment on above: Performed By: #### 2 [id number] #### LAVELLE [facility] [address] [place] [address] Vit B12on 05-02-2018 Cobalamin (Vitamin B12) mass conc 240 pg/mL Normal 180-914 [facility] Comment on above: Performed By: #### 2 [id number] #### LAVELLE [facility] [address] [place] [address] C Urineon 02-07-2018 C Urine Final Report: Light growth of Mixed skin contaminants in Moderate Normal skin michael isolated Normal [facility] Comment on above: Performed By: #### 2 [id number] #### LAVELLE Microbiology Subsection [address] [place] [address] Pathology (EM)on 03-16-2017 Pathology (EM) FINAL GYNECOLOGIC CY TOLOGY [id number] ADEQUACYUnsatisfactory for Evaluation. Specimen is processed and examined, butunsatisfactory for evaluation of epithelial abnormality due to:Scant cellularity.GENERAL CATEGORIZATIONUnsatisfactory for evaluation.COMMENTHigh Risk HPV was ordered and performed at [facility] Laboratory. Results arereported below in this [...] E6/E7 viral messenger RNA (mRNA) high-risk HPV kfyeqezge44,18,31,33,35,39,45, 51,55,58,59,66, and 68 which are associated with cervicalcancer and its precursor lesions. However, cross-reactions with othergenotypes may occur. Results should be correlated with cytologic andhistologic findings. Sensitivity may be affected by cellularity of specimen.CLINICAL HISTORYComment: LMP: No UterusHysterectomySPECIMEN(A) SCREENING VAGINAL LIQUID-BASED PAP SMEARPerformed at [facility], [address] [place], [place] [address]Screened by: Signed Out by: DAVON CASTILLO Plastics Design Engineer Reported: 03/20/2017 Normal [facility] Comment on above: Performed By: #### G YN ####[facility] [address] [place] [address] Vital Signs Date Time Vital Sign Value Performing Clinician Facility 07-17-2024 09:38-0500 Body height 171.5 cm Kim Burnette MD Work Phone: [facility] 07-17-2024 09:38-0500 Body mass index (BMI) [Ratio] 23.15 kg/m2 Kim Burnette MD Work Phone: [facility] 07-17-2024 09:38-0500 Body weight 68.04 kg Kim Burnette MD Work Phone: [facility] 07-17-2024 09:38-0500 Diastolic blood pressure 63 mm[Hg] Kim Burnette MD Work Phone: [facility] 07-17-2024 09:38-0500 Systolic blood pressure 107 mm[Hg] Kim Burnette MD Work Phone: [facility] 06-19-2024 10:41-0400 Body height 171.5 cm Kim Burnette MD Work Phone: [facility] 06-19-2024 10:41-0400 Body mass index (BMI) [Ratio] 22.38 kg/m2 Kim Burnette MD Work Phone: [facility] 06-19-2024 10:41-0400 Body weight 65.77 kg Kim Burnette MD Work Phone: [facility] 06-19-2024 10:41-0400 Diastolic blood pressure 76 mm[Hg] Kim Burnette MD Work Phone: [facility] 06-19-2024 10:41-0400 Systolic blood pressure 109 mm[Hg] Kim Burnette MD Work Phone: [facility] 05-23-2024 08:08-0400 Body height 171.45 cm [facility] 05-23-2024 08:08-0400 Body mass index (BMI) [Ratio] 22.1 kg/m2 [facility] 05-23-2024 08:08-0400 Body weight 65.03 kg [facility] 05-23-2024 08:08-0400 Diastolic blood pressure 60 mm[Hg] [facility] 05-23-2024 08:08-0400 Heart rate 71 /min [facility] 05-23-2024 08:08-0400 Respiratory rate 16 /min [facility] 05-23-2024 08:08-0400 SaO2% (BldA) [Mass fraction] 96 % [facility] 05-23-2024 08:08-0400 Systolic blood pressure 102 mm[Hg] [facility] 05-09-2024 10:27-0400 Blood Pressure Location FREYA JOHNSON [facility] 05-09-2024 10:27-0400 Diastolic blood pressure 52 mm[Hg] FREYA JOHNSON [facility] 05-09-2024 10:27-0400 Heart rate 74 /min FREYA JOHNSON [facility] 05-09-2024 10:27-0400 Systolic blood pressure 101 mm[Hg] FREYA JOHNSON [facility] 04-10-2024 09:17-0400 Body height 171.45 cm [facility] 04-10-2024 09:17-0400 Body mass index (BMI) [Ratio] 23.6 kg/m2 [facility] 04-10-2024 09:17-0400 Body weight 69.39 kg [facility] 04-10-2024 09:17-0400 Diastolic blood pressure 71 mm[Hg] [facility] 04-10-2024 09:17-0400 Heart rate 73 /min [facility] 04-10-2024 09:17-0400 Systolic blood pressure 104 mm[Hg] [facility] 07-24-2023 14:45-0500 Body height 171.45 cm Freya Ponce Other [employer] [facility] [employer] Other 07-24-2023 14:45-0500 Body mass index (BMI) [Ratio] 22.53 kg/m2 Freya Ponce Other [facility] Other 07-24-2023 14:45-0500 Body weight 66.23 kg Freya Ponce Other [facility] Other 07-24-2023 14:45-0500 Diastolic blood pressure 62 mm[Hg] Freya Ponce Other [facility] Other 07-24-2023 14:45-0500 SaO2% (BldA) [Mass fraction] 98 % Freya Ponce Other [facility] Other 07-24-2023 14:45-0500 Systolic blood pressure 104 mm[Hg] Freya Ponce Other [facility] Other 06-30-2023 09:00-0500 Body height 171.45 cm Freya Kris Other [facility] Other 06-30-2023 09:00-0500 Body mass index (BMI) [Ratio] 22.68 kg/m2 Freya Kris Other [facility] Other 06-30-2023 09:00-0500 Body weight 66.68 kg Freya Kris Other [facility] Other 06-30-2023 09:00-0500 Diastolic blood pressure 64 mm[Hg] Freya Kris Other [facility] Other 06-30-2023 09:00-0500 SaO2% (BldA) [Mass fraction] 97 % Freya Kris Other [facility] Other 06-30-2023 09:00-0500 Systolic blood pressure 102 mm[Hg] Freya Kris Other [facility] Other 05-10-2023 13:00-0400 Body height 171.45 cm Imad Asaad Other [facility] Other 05-10-2023 13:00-0400 Body mass index (BMI) [Ratio] 23.07 kg/m2 Imad Asaad Other [facility] Other 05-10-2023 13:00-0400 Body weight 67.81 kg Imad Asaad Other [facility] Other 05-10-2023 13:00-0400 Diastolic blood pressure 83 mm[Hg] Imad Asaad Other [facility] [employer] Other 05-10-2023 13:00-0400 Systolic blood pressure 130 mm[Hg] Imad Asaad Other [facility] Other 04-26-2023 13:34-0400 Blood Pressure Location FREYA ALEX [facility] 04-26-2023 13:34-0400 Diastolic blood pressure 76 mm[Hg] FREYA ALEX [facility] 04-26-2023 13:34-0400 Heart rate 76 /min FREYA ALEX [facility] 04-26-2023 13:34-0400 Respiratory rate 16 /min FREYA ALEX [facility] 04-26-2023 13:34-0400 Systolic blood pressure 112 mm[Hg] FREYA ALEX [facility] 09-09-2022 09:30-0500 Body height 171.45 cm Xiomara Aaron Other [facility] [employer] Other 09-09-2022 09:30-0500 Body mass index (BMI) [Ratio] 23.61 kg/m2 Xiomara Aaron Other [facility] Other 09-09-2022 09:30-0500 Body weight 69.4 kg Xiomara Aaron Other [facility] Other 09-09-2022 09:30-0500 Diastolic blood pressure 72 mm[Hg] Xiomara Aaron Other [facility] Other 09-09-2022 09:30-0500 SaO2% (BldA) [Mass fraction] 98 % Xiomara Aaron Other [facility] Other 09-09-2022 09:30-0500 Systolic blood pressure 126 mm[Hg] Xiomara Aaron Other [facility] Other 12-08-2021 09:21-0400 Blood Pressure Location FREYA JOHNSON [facility] [employer] 12-08-2021 09:21-0400 Diastolic blood pressure 77 mm[Hg] [facility] 12-08-2021 09:21-0400 Heart rate 72 /min [facility] 12-08-2021 09:21-0400 Systolic blood pressure 111 mm[Hg] [facility] 11-01-2021 11:45-0400 Body height 171.45 cm Shan Kerr Other [facility] Other 11-01-2021 11:45-0400 Body mass index (BMI) [Ratio] 22.53 kg/m2 Shan Kerr Other [facility] Other 11-01-2021 11:45-0400 Body weight 66.23 kg Shan Kerr Other [facility] Other 11-01-2021 11:45-0400 Diastolic blood pressure 69 mm[Hg] Shan Kerr Other [facility] Other 11-01-2021 11:45-0400 Systolic blood pressure 107 mm[Hg] Shan Kerr Other [facility] Other 10-17-2021 14:05-0500 Body height 171.45 cm Blaire Collier Other [facility] Other 10-17-2021 14:05-0500 Body mass index (BMI) [Ratio] 23.45 kg/m2 Blaire Collier Other [facility] Other 10-17-2021 14:05-0500 Body temperature 97.8 [degF] Blaire Collier Other [facility] Other 10-17-2021 14:05-0500 Body weight 68.95 kg Blaire Collier Other [facility] Other 10-17-2021 14:05-0500 Diastolic blood pressure 63 mm[Hg] Blaire Collier Other [facility] Other 10-17-2021 14:05-0500 Respiratory rate 18 /min Blaire Collier Other [facility] Other 10-17-2021 14:05-0500 SaO2% (BldA) [Mass fraction] 99 % Blaire Collier Other [facility] Other 10-17-2021 14:05-0500 Systolic blood pressure 99 mm[Hg] Blaire Collier Other [facility] Other 06-11-2019 12:08-0400 BMI (Body Mass Index) [...] Index) 22.49 kg/m2 Yan [facility] Work Phone: 06-03-2019 12:41-0400 Body weight 65 kg Yan [facility] Work Phone: 06-03-2019 12:41-0400 BP Diastolic 68 mm[Hg] Yan [facility] Work Phone: Comment on above: Location: [place]; 06-03-2019 12:41-0400 BP Systolic 110 mm[Hg] Yan [facility] Work Phone: Comment on above: Location: [place]; 06-03-2019 12:41-0400 BSA (Body Surface Area) 1.75 m2 Yan [facility]low [facility] Work Phone: 06-03-2019 12:41-0400 Height 170 cm Yan Winslow -[facility] Work Phone: 06-03-2019 12:41-0400 Pulse (Heart Rate) 77 /min Yan Winslow -[facility] Work Phone: Encounters Encounter Date Encounter Type Care Provider Facility Start: 07-17-2024 End: 07-17-2024 Julieta Burnette MD Work Phone: [facility] Start: 07-17-2024 End: 07-17-2024 Julieta Burnette MD Work Phone: [facility] Start: 07-17-2024 End: 07-17-2024 Office outpatient visit 25 minutes Kim Burnette MD Work Phone: [facility] Comment on above: 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) Start: 07-17-2024 End: 07-17-2024 ambulatory KIM H TIMMIS Not Available Start: 06-19-2024 End: 06-19-2024 Julieta Burnette MD Work Phone: [facility] Start: 06-19-2024 End: 06-19-2024 Julieta Burnette MD Work Phone: [facility] Start: 06-19-2024 End: 06-19-2024 Office outpatient new 45 minutes Kim Burnette MD Work Phone: [facility] Comment on above: Chronic sinusitis, u nspecified location (Primary Dx); Allergic rhinitis, unspecified seasonality, unspecified trigger Start: 06-19-2024 End: 06-19-2024 ambulatory KIM H TIMMIS Not Available Start: 05-23-2024 End: 05-23-2024 ambulatory [facility] Work Phone: Start: 05-23-2024 End: 05-23-2024 Patient encounter procedure [facility] Work Phone: Start: 05-09-2024 End: 05-09-2024 ambulatory FREDY JOHNSON Facility:[facility] Start: 05-09-2024 End: 05-09-2024 Patient encounter procedure FREYA JOHNSON [facility] Start: 04-10-2024 End: 04-10-2024 ambulatory [facility] Work Phone: Start: 04-10-2024 End: 04-10-2024 Patient encounter procedure [facility] Work Phone: Start: 2024 End: 2024 ambulatory JOBY MILLER Not Available Start: 12-25-2023 End: [facility] Start: 11-08-2023 End: 11-08-2023 ambulatory ANA INGRAM Not Available Start: 08-07-2023 End: 08-07-2023 ambulatory Xiomara Aaron Other [facility] Other Start: 08-07-2023 Telephone encounter Xiomara Aaron [facility] Start: 07-24-2023 End: 07-24-2023 ambulatory Freya Ponce Other [facility] Other Start: 07-24-2023 Office outpatient vi sit 15 minutes Freya Ponce [facility] Start: 07-05-2023 End: 07-05-2023 ambulatory Freya Ponce Other [facility] Other Start: 07-05-2023 Telephone encounter Freya hemphill [facility] Start: 06-30-2023 End: 06-30-2023 ambulatory Freya Ponce Other [facility] Other Start: 06-30-2023 Office outpatient vi sit 15 minutes Freya Ponce [facility] Start: 05-10-2023 End: 05-10-2023 ambulatory Imad Asaad Other [facility] Other Start: 05-10-2023 Office outpatient ne w 45 minutes Imad Asaad [facility] Start: 04-26-2023 End: 04-26-2023 Patient encounter procedure FREYA JOHNSON [facility] Start: 03-24-2023 End: 03-24-2023 ambulatory Imad Asaad Other [facility] Other Start: 03-24-2023 Telephone encounter Imad Asaad [facility] Start: 03-16-2023 End: 03-16-2023 ambulatory Xiomara Aaron Facility:[facility] Start: 01-30-2023 End: 01-30-2023 ambulatory Imad Asaad Other [facility] Other Start: 01-30-2023 Telephone encounter Imad Asaad [facility] Start: 01-18-2023 ambulatory IMAD ASAAD Facility:[facility] Start: 01-09-2023 End: 01-10-2023 ambulatory IMAD ASAAD Facility:[facility] Start: 11-01-2022 End: 11-01-[address] BRIJESH KEATING . Facility:[facility] Start: 09-09-2022 End: 09-09-2022 ambulatory Xiomara Aaron Other [facility] Other Start: 09-09-2022 Office outpatient vi sit 15 minutes Xiomara Aaron [facility] Start: 07-23-2022 End: 07-24-[address] XIOMARA AARON Facility:[facility] Start: 07-21-2022 Encounter for cervic al smear to confirm findings of recent normal smear following initial abnormal smear Imad Silvina Other [facility] Other Start: 07-21-2022 Gynecological examination normal Imad Asaad Other [facility] Other Start: 07-21-2022 History of abnormal cervical Papanicolaou smear Imad Asaad Other [facility] Other Start: 12-16-2021 End: 12-16-2021 ambulatory Shan Kerr Other [facility] Other Start: 12-16-2021 Telephone encounter Shan Kerr [facility] Start: 12-14-2021 End: 12-14-2021 ambulatory Shan Kerr Other [facility] Other Start: 12-14-2021 Telephone encounter Shan Kerr [facility] Start: 12-08-2021 End: 12-08-2021 Patient encounter procedure [facility] [facility] Start: 11-19-2021 End: 11-19-2021 ambulatory Shan Kerr Other [facility] Other Start: 11-19-2021 Telephone encounter Shan Kerr [facility] Start: 11-01-2021 End: 11-01-2021 ambulatory Shan Kerr Other [facility] Other Start: 11-01-2021 Office outpatient vi sit 25 minutes Shan Kerr [facility] Start: 10-20-2021 End: 10-20-2021 ambulatory Blaire Collier Other [facility] Other Start: 10-20-2021 Telephone encounter Blaire Collier [facility] Kashif Rodriguez Start: 10-17-2021 End: 10-17-2021 ambulatory Blaire Collier Other [employer] Other Start: 10-17-2021 Office outpatient vi sit 15 minutes Blaire Collier [facility] [place] Start: 01-26-2021 Rx Change Melvin Roldan DO Work Phone: [employer] [address] Work Phone: Start: 01-25-2021 AUDIT Chance Lauren Work Phone: [employer] [address] Work Phone: Start: 05-19-2020 Patient encounter procedure Fely Monroy [employer] [address] Work Phone: Start: 05-06-2020 Patient encounter procedure Fely Monroy [facility] [address] Work Phone: Start: 04-02-2020 Patient encounter procedure Fely Monroy [facility] [address] Work Phone: Start: 02-03-2020 Patient encounter procedure Fely Monroy [facility] [address] Work Phone: Start: 10-25-2019 Patient encounter procedure Fely Monroy [facility] [address] Work Phone: Start: 06-11-2019 Patient encounter procedure Saba Jenkins [facility] Work Phone: Start: 06-03-2019 Patient encounter procedure Yan Bettskev -[facility] Work Phone: Start: 05-29-2019 Patient encounter procedure Yan Winslow -[facility] Work Phone: Start: 05-29-2019 Telemedicine consultation with patient Yan Winslow [facility] Work Phone: Start: 12-05-2018 Patient encounter procedure Yan Winslow -[facility] Work Phone: Start: 11-27-2018 Patient encounter procedure Yan Winslow [facility] Work Phone: Start: 11-07-2018 Patient encounter procedure Yan Winslow -[facility] Work Phone: Start: 12-10-2013 End: 12-10-2013 Telephone encounter Larry Quinones DO Work Phone: Neurology Comment on above: Results Cancer cervix - screening done Chance Barnes MD Work Phone: [address] Work Phone: Comment on above: 05/19/2020; ASCUS, HP V POSITIVE12/25/2018; UNSATISFACTORY; Procedures Date Procedure Procedure Detail Performing Clinician Start: 01-16-2024 Mammography Kim castañeda MD Work Phone: Start: 11-01-2022 Microscopic observat ion [Identifier] in Cervix by Cyto stain Kim Burnette MD Work Phone: Start: 10-27-2021 Screening for malign ant neoplasm of breast Imad Asaad Other Start: 11-06-2019 Colonoscopy Kim castañeda MD Work Phone: Start: 06-03-2019 Assay of lipase Yan Winslow Start: 06-03-2019 Blood count complete auto&auto difrntl wbc Yan Winslow Start: 06-03-2019 Comprehensive metabo lic 2000 panel Yan Winslow Start: 06-03-2019 CT Abdomen and Pelvi s with Contrast Yan Winslow Start: 06-03-2019 Giardia/Cryptosporidium Yanjennifer Winslow Start: 06-03-2019 Iadna-dna/rna gi pth gn multiplex probe tq 6-11 Yanjennifer Winslow Start: 06-03-2019 Inf agent det nuclei c acid clostridium amp probe Yanjennifer Winslow Bilateral salpingect kamlesh with oophorectomy Yan Furness Dilation and curettage Patri ck Furness Dilation and curetta ge of uterus FREYA JOHNSON H/O: hysterectomy FREYA MACKEY History of tonsillectomy JUAN JOSE BENTLEYRY Hysterectomy Yan Winslow Operative procedure on ankle Yan Winslow Procedure on foot FREYA MACKEY Tonsillectomy Yan Strickland s Plan of Treatment Date Care Activity Detail Author Start: 11-05-2029 Screening for malign ant neoplasm of colon [facility] Start: 11-01-2025 Screening for malign ant neoplasm of cervix [facility] Start: 01-15-2025 Screening for malign ant neoplasm of breast Mammogram [facility] Start: 07-17-2024 End: 07-17-2024 Patient encounter procedure 07/17/2024 9:40 AM EST Office Visit [facility] [address] [place] [address] Kim Burnette MD [address] [place] [address] Arrived [facility] Comment on above: Arrived Start: 06-19-2024 End: 06-19-2024 Patient encounter procedure 06/19/2024 10:30 AM EDT Office Visit [facility] [address] [place] [address] Kim Burnette MD [address] [facility] [address] [place] [address] Arrived [facility] Comment on above: Arrived Start: 05-23-2024 Patient referral [facility] Work Phone: Start: 04-21-2024 Influenza vaccination Influenza Vacc ine (#1) [facility] Start: 12-21-2021 Patient encounter procedure ANNUAL, Provider: Fely Monroy, Status: Pen, Time: 9:[address] Work Phone: Start: 04-21-2021 Influenza vaccination INFLUENZ A (Season Ended) [facility] Start: 2019 Screening for malign ant neoplasm of colon [facility] Start: 2019 SHINGRIX VACCINE (1 of 2) SHINGRIX VACCINE (1 of 2) [facility] Start: 2014 DIABETES SCREEN [facility] Start: 2014 LIPID SCREEN LIPID SCREEN [facility] Start: 2009 Mammography MAMMOGRAM [facility] Start: 1999 HPV TESTING HPV TESTING [facility] Start: 1999 Screening for malign ant neoplasm of cervix HPV/Cotest [facility] Start: 1990 PAP TESTING PAP TESTING [facility] Start: 1988 Urine microalbumin profile DTAP,TDAP,TD (1 - Tdap) [facility] Start: 1987 HEPATITIS C SCREENING HEPATITIS C SC REENING [facility] Start: 1987 HIV SCREENING HIV SCREENING [facility] Start: 1981 Adult depression screening assessment DEPRESSION SCREENING [facility] Start: 1969 Screening for malign ant neoplasm of colon [facility] Patient referral [facility] Work Phone: Immunizations Immunization Date Immunization Notes Care Provider [facility] 07-12-2024 influenza virus vaccine, unspecified formulation Kim Burnette MD Work Phone: [facility] 04-26-2023 Influenza, injectable, Madin Lisbeth Canine Kidney, preservative free, quadrivalent Kim Burnette MD Work Phone: [facility] 04-26-2023 influenza virus vaccine, unspecified formulation Kim Burnette MD Work Phone: [facility] 05-30-2022 influenza virus vaccine, split virus (incl. purified surface antigen) Imad Asaad Other [facility] Other 05-30-2022 influenza virus vaccine, unspecified formulation [facility] 05-30-2022 Influenza, injectable, Madin Lisbeth Canine Kidney, preservative free, quadrivalent Kim Burnette MD Work Phone: [facility] 05-30-2022 Prevnar 20 Imad Asaad Other [facility] 03-01-2021 zoster vaccine recombinant Kim Burnette MD Work Phone: [facility] 12-17-2020 SARS-CoV-2 (COVID-19 ) mRNA BNT-162b2 kishax FREYA JOHNSON [facility] 11-25-2020 SARS-CoV-2 (COVID-19 ) mRNA BNT-162b2 vax FREYA JOHNSON [facility] 11-12-2008 hepatitis B vaccine, pediatric or pediatric/adolescent dosage Kim Burnette MD Work Phone: [facility] 04-15-2008 hepatitis B vaccine, pediatric or pediatric/adolescent dosage Kim Burnette MD Work Phone: [facility] 03-18-2008 hepatitis B vaccine, pediatric or pediatric/adolescent dosage Kim Burnette MD Work Phone: [facility] 03-18-2008 measles, mumps and rubella virus vaccine Kim Burnette MD Work Phone: [facility] 03-18-2008 tetanus toxoid, reduced diphtheria toxoid, and acellular pertussis vaccine, adsorbed Kim Burnette MD Work Phone: [facility] 04-06-1976 trivalent poliovirus vaccine, live, oral Kim Burnette MD Work Phone: [facility] 04-09-1974 diphtheria, tetanus toxoids and pertussis vaccine Kim Burnette MD Work Phone: [facility] 07-06-1971 diphtheria, tetanus toxoids and pertussis vaccine Kim Burnette MD Work Phone: [facility] 07-06-1971 trivalent poliovirus vaccine, live, oral Kim Burnette MD Work Phone: [facility] 1969 diphtheria, tetanus toxoids and pertussis vaccine Kim Burnette MD Work Phone: [facility] 1969 trivalent poliovirus vaccine, live, oral Kim Burnette MD Work Phone: [facility] 1969 diphtheria, tetanus toxoids and pertussis vaccine Kim Burnette MD Work Phone: [facility] 1969 diphtheria, tetanus toxoids and pertussis vaccine Kim Burnette MD Work Phone: [facility] 1969 trivalent poliovirus vaccine, live, oral Kim Burnette MD Work Phone: [facility] NEGATED: Highlighted row has not occurred!12-08-2021 influenza virus vaccine, unspecified formulation FREYA JOHNSON [facility] Payers Date Payer Category Payer Self-pay 2021 Unknown [id number] [id number] 2011 Private Health Insurance [employer]GAL[employer] OAP [id number] 2011-2015 PPO [id number] 2008 Self-pay SELF PAY HSP/MED ICAL SELF PAY [id number] 2008-2015 SELF PAY Indemnity [id number] 1969 Unknown [id number] .[id number] 1969 Unknown [id number] .[id number] 1969 Unknown [id number] .[id number] 1969 Unknown [id number] [id number] .[id number] 1969 Unknown [id number] .[id number] 1969 Unknown [id number] [id number] .[id number] 1969 Unknown [id number] [id number] .[id number] 1969 Unknown [id number] .[id number] 1969 Unknown [id number] .[id number] 1969 Unknown [id number] .[id number] 1959 [facility] [id number] Unknown Unknown [id number] .[id number] Social History Date Type Detail Facility Assertion Unknown if ever smoked -[facility] Work Phone: Start: 08-01-2013 End: 06-19-2024 Tobacco smoking status NHIS Never smoker [facility] Start: 08-01-2013 End: 07-17-2024 Alcohol intake Current drinker of alcohol (finding) [facility] Start: 07-30-2012 Alcohol Comment Occasional [facility] Start: 1970 Sex Assigned At Not on file [facility] Start: 11-06-2023 End: 06-19-2024 Non-smoker Non-smoker [facility] [address] Work Phone: Tobacco smoking status Never [facility] Start: 11-06-2023 End: 06-19-2024 Sex Assigned At Female [facility] Who@ Other Start: 1970 Sex Assigned At Female F [facility] Start: 05-30-2024 Alcoholic beverage intake Ex-drinker (finding) [facility] Start: 11-06-2023 Alcohol Comment occasional [facility] Start: 06-19-2024 Tobacco use and exposure Smokeless tobacco non-user [facility] Functional Status Date Assessment Result Facility 05-09-2024 Functional Status N/A [facility] 04-26-2023 Functional Status N/A [facility] NEGATED: Highlighted row Functional performance Functional status health issues are not documented [facility] Work Phone: Mental Status Date Assessment Result Facility NEGATED: Highlighted row Cognitive function [Interpretation] Cognitive status health issues are not documented Disease [facility] Work Phone: Clinical Notes 12-12-2013 to 07-17-2024 Kim Burnette MD - 07/17/2024 9:40 AM Bushra Burnette MD - 06/19/2024 10:30 AM EDT Note Date & Type Note Facility 07-17-2024 History of Present illness Narrative Subjective Patient ID: Patty Gaxiola is a 54 y.o. female who presents for Sinusitis (Follow up RAST, sinus XR [facility] 06/22/24) Sinus plain films clear. RAST shows a slight allergy to only alternaria. Pt still c/o chronic nasal obstruction. Review of Systems All other systems reviewed [...] Inhale 1 puff if needed for wheezing Cyanocobalamin (Vitamin B 12) 100 MCG lozenge Take 1 each by mouth Daily estradiol (Estrace) 1 MG tablet TAKE 1 TABLET BY MOUTH EVERY DAY FOR 90 DAYS 90 tablet 3 levothyroxine (Synthroid, Levoxyl) 88 MCG tablet Take 88 mcg by mouth in the morning. Take before meals. montelukast (Singulair) 10 MG tablet Take 1 tablet (10 mg) by mouth at bedtime 90 tablet 3 Multiple Vitamins-Minerals (MULTIVITAMIN ADULT, MINERALS, PO) Take 1 each by mouth Daily oxybutynin XL (Ditropan-XL) 5 MG 24 hr tablet Take 5 mg by mouth Daily pantoprazole (ProtoNix) 40 MG EC tablet Take 40 mg by mouth Daily No current facility-administered medications on file prior to visit. Objective Last Recorded Vitals Vitals: 07/17/24 0938 BP: 107/63 ENT Physical Exam Nose Internal Nose: bilateral inferior turbinates with hypertrophy; Nose comments: Edward nasal obstruction due to inf turb hypertrophy Respiratory Inspection: breathing unlabored; normal breathing rate; Auscultation: breath sounds are clear; Cardiovascular Inspection: extremities are warm and well perfused; no peripheral edema present; Auscultation: regular rate and rhythm; Assessment/Plan Diagnoses and all orders for this visit: Hypertrophy of both inferior nasal turbinates Pt does not have sig allergies and no sinusitis 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 Recommend edward IT SMR. Risks, including persistent nasal obs d/w pt. documented in this encounter [facility] 06-19-2024 History of Present illness Narrative Subjective Patient ID: Patty Gaxiola is a 54 y.o. female who presents [...] bedtime Check RAST documented in this encounter [facility] 05-09-2024 Hospital Discharge instructions Patient Education [...] (122 g) has 5 g of fiber. [place] sprouts (cooked) cup (78 g) has 4 [...] (155 g) has 1.4 g of fiber. [place] 1 small (154 g) has 3.7 g [...] (77.5 g) has 2.2 g of fiber. [place] (canned or frozen) cup (82.5 g) has [...] (70 g) has 3.2 g of fiber. [place] tortilla one 6-inch (15 cm) tortilla has 1.5 g of fiber. Meats and other proteins Almonds cup or 1 oz (28 g) has 3.5 g of fiber. [place] seeds in shell cup or oz (11.5 [...] (35 g) has 0.5 g of fiber. [place] (slices) cup (60 g) has 0.3 g [...] provider. Document Revised: 12/10/2020 Document Reviewed: 12/10/2020 [employer] Patient Education 2023 [employer]. 05/09/2024 10:49:23 High-Fiber Eating Plan High-Fiber Eating [...] Bulgur wheat. Millet. Quinoa. Bran muffins. Popcorn. [place] wafer crackers. Meats and other proteins [place] beans, kidney beans, and dumont beans. Soybeans. [...] Cream cheese. Sour cream. Fats and oils [place]. Beverages Soft drinks. Other foods Cakes and [...] provider. Document Revised: 12/10/2020 Document Reviewed: 12/10/2020 [employer] Patient Education 2023 [employer]. 05/08/2024 15:12:44 Overactive Bladder, Adult Overactive Bladder, [...] your health care provider. General instructions Take rqmo-stw-tlmsznv and prescription medicines only as told by [...] provider. Document Revised: 04/26/2021 Document Reviewed: 04/26/2021 [employer] Patient Education 2023 [employer]. Follow Up Care 04/26/2023 13:57:10 With:FREYA JOHNSON PA-C, URL Address: When:1 year [facility] [place] 05-09-2024 Note Patient Education Gastroenterology Fiber Content [...] g) has 5 g of fiber. ? [place] sprouts (cooked) ? ? cup (78 g) [...] g) has 1.4 g of fiber. ? [place] ? 1 small (154 g) has 3.7 [...] g) has 2.2 g of fiber. ? [place] (canned or frozen) ? ? cup (82.5 [...] g) has 3.2 g of fiber. ? [place] tortilla ? one 6-inch (15 cm) tortilla has 1.5 g of fiber. Meats and other proteins ? Almonds ? ? cup or 1 oz (28 g) has 3.5 g of fiber. ? [place] seeds in shell ? ? cup or [...] g) has 0.5 g of fiber. ? [place] (slices) ? ? cup (60 g) has 0.3 g of fiber. ? Celery ? 1 stalk (40 g) has 0.1 g of fiber. Grains ? Flour tortilla ? one 6-inch (15 (more content not included)... [facility] 07-24-2023 Evaluation note Encounter Date Diagnosis [...] understanding and is agreeable to treatment plan. [facility] Other 11-15-2023 Evaluation note* Encounter Date Diagnosis Assessment Notes Treatment Notes Treatment Clinical Notes Jun, Acute vaginitis (ICD-10 - N76.0) [facility] Other 11-10-2023 Evaluation note* Encounter Date Diagnosis [...] verbalizes understanding and agrees with tx plan. [facility] Other 09-20-2023 Evaluation note* Encounter Date Diagnosis Assessment Notes Treatment Notes Treatment Clinical Notes Apr, Gluten intolerance (ICD-10 - K90.0) [facility] 09-06-2023 Hospital Discharge instructions Patient Education 04/26/2023 13:55:04 Urinary Tract Infection, Adult, Cggw-fe-Gnqy Urinary Tract Infection, Adult A urinary tract [...] Follow these instructions at home: Medicines Take ljci-ngs-xszxgke and prescription medicines only as told by [...] provider. Document Revised: 03/19/2021 Document Reviewed: 03/19/2021 [employer] Patient Education 2022 [employer]. Follow Up Care 03/30/2022 13:19:45 With:ALEX DANIEL, FREYA Hunter, URL Address: [address] [place] [address] When:Within 1 Year(s) [facility] 08-04-2023 Evaluation note* Encounter Date Diagnosis Assessment Notes Treatment Notes Treatment Clinical Notes Mar, Change in bowel habits (ICD-10 - R19.4) Mar, Fecal incontinence (ICD-10 - R15.9) Mar, Bloating (ICD-10 - R14.0) Mar, Diarrhea, unspecified (ICD-10 - R19.7) [facility] Other 01-20-2023 Evaluation note* Encounter Date Diagnosis Assessment Notes Treatment Notes Treatment Clinical Notes Aug, Left medial knee pain (ICD-10 - M25.562) Discussed options. Handwrote order for pt. Gave exercises for stretching at home. Will call if no improvment for a potential ortho referral. Discussed NSAIDs and heat for improvement [facility] Other 04-20-2022 Hospital Discharge instructions Patient Education [...] fried and sweet foods. General instructions Take zbug-sqg-sjwjvnm and prescription medicines only as told by [...] 06/03/2010 Document Revised: 11/28/2019 Document Reviewed: 08/23/2018 [employer] Patient Education 2020 [employer]. Follow Up Care 11/11/2021 12:54:29 With:FREYA JOHNSON PA-C, URL Address: [address] [place] [address] When:3 months [facility] 03-14-2022 Evaluation note* Encounter Date Diagnosis Assessment Notes Treatment Notes Treatment Clinical Notes Oct, Irritable bowel syndrome with both constipation and diarrhea (ICD-10 - K58.2) Oct, Exocrine pancreatic insufficiency (ICD-10 - K86.81) SAMPLES OF ZENPEP GIVEN TO PT PT TO REPORT PROGRESS Oct, Fecal incontinence (ICD-10 - R15.9) Oct, GERD without esophagitis (ICD-10 - K21.9) [facility] Other 02-27-2022 Evaluation note* Encounter Date Diagnosis [...] infection (UTI) home care material was printed [facility] Other 09-29-2020 NoteAccession #: [id number] Date of Procedure: 05/19/2020 Pathologist: STEF GREEN MD Date Reported: 05/26/2020 Date Received: 05/19/2020 Submitting Physician: FELY MONROY CNM [facility] FINAL CYTOLOGICAL INTERPRETATION Squamous and/or [...] patient?s Pap test results. Please refer to [facility] current guidelines for the use of HPV DNA testing, result interpretation, and patient management. The performance of this test was verified by the Molecular Diagnostic Laboratory at [facility]. The lab is certified under the Clinical Laboratory Amendments of 1988 (CLIA 88) as qualified to perform high complexity clinical laboratory testing. This specimen has been analyzed by the [employer] Med[employer]ap Imaging System ([employer] an automated imaging and review system, which assists the laboratory in evaluating cells on ThinPrep Pap tests. Following automated imaging, selected vann from every slide were reviewed by a utility system operator and/or pathologist. Electronically Signed Out By STEF [...] Source of Specimen A: THINPREP PAP VAGINAL [facility] Department of Pathology [id number] [id number] Center[facility] on above:Performed By: #### C #### [facility] Cytology [address] [place] [address] [id number] Miscellaneous Notes* Telephone Encounter - Bridgette Owens RN - 12/12/2013 10:19 AM EDT .Contacted patient with MD's message. Verbalized understanding. No further questions. * Telephone Encounter - Salome León Ma - 12/11/2013 10:02 AM EDT Left message for return call. * Telephone Encounter - Larry Quinones - 12/10/2013 3:54 PM EDT Please tell patient that Vitamin D was low and needs to be replaced. I have placed an order for Vitamin D3 50,000 unit caps. Take 1 cap weekly for 10 weeks. Then, take rizc-yqx-eoufjru Vitamin D3 supplements of at least 1,000 units daily. The following approved medication requests have been transmitted electronically. Signed Prescriptions Disp Refills cholecalciferol, Vitamin D3, 50,000 unit cap capsule 10 capsule 0 Si cap per week x 10 weeks. ELADIO: No Authorizing Provider: LARRY QUINONES DO [facility] Future Appointments Appointment Date:03/16/2022 08:30:00 AM Scheduled Provider:FREYA JOHNSON PA-C Location:[facility] Appointment Type:URO Office Visit [facility] evaluation + Plan note Future Appointments Appointment Date:04/30/2024 10:00:00 AM Scheduled Provider:FREYA JOHNSON PA-C Location:[facility] Appointment Type:URO Office Visit [facility] evaluation noteNo [employer] Other Evaluation noteNo assessment information available [facility] Work Phone: Evaluation note* Diagnosis Onset Date Resolution Status Sunburn of first degree acut e Chronic sinusitis acute [facility] Work Phone: Evaluation note* Diagnosis Chronic sinusitis, unspecified location- Primary Allergic rhinitis, unspecified seasonality, unspecified trigger documented in this encounter [facility] HealthcareEvaluation note* Diagnosis Hypertrophy of both inferior nasal turbinates- Primary documented in this encounter [facility] HealthcareHistory general Narrative - Reported* Type Description Date Medical History Hypothyroidism Medical History insomnia Medical History acid reflux Surgical History tonsillectomy Surgical History D&C Surgical History hysterectomy Surgical History Foot Surgery right Hospitalization History see above [facility] Other [facility] general Narrative - Reported* Type Description Date Medical History Dyspnea Medical History Fatigue Medical History Abdominal bloating Medical History Abdominal pain, RUQ Medical History IBS (irritable bowel syndrome) Medical History Hypothyroidism (acquired) Medical History Acid reflux Surgical History tonsillectomy Surgical History D&C Surgical History hysterectomy Surgical History Foot Surgery right Hospitalization History SEE SURGICAL HX [facility] Other [facility] general Narrative - Reported* Type Description Date [...] Surgery right Hospitalization History SEE SURGICAL HX [facility] Other [employer] general Narrative - Reported* Type Description Date [...] Repair 07/17/23 Hospitalization History SEE SURGICAL HX [facility] Other Hospital course Narrative No data available for this section [facility] Hospital Discharge instructionsAmbulatory Orders* Referral to ENT Time Frame: 05/23/24, Location: None Selected [facility] Work Phone: Progress note No data available for this section [facility] reason for visit Narrativeknee troubles, possible referralVermillion Adways Inc[employer] Other Summary Purpose Family History No Family [...] nataliia grandparent Heart problem Unknown Advance Directives No Advanced Directives Records Found Advance Directive Response Recorded Date/ Time Advance Directives No September 03, 2020 10:43am Chief Complaint and Reason for Visit Chief Complaint possible tabares on fe et Chief Complaint possible tabares on fe et dry cough Reason for Visit Sunburn of first deg ree Chronic sinusitis Additional Source Comments INFORMATION SOURCE (unrecogn ized section and content) DATE CREATED AUTHOR 02/14/2018 [facility] DATE CREATED AUTHOR AUTHOR'S ORGANIZ ATION 01/10/2019 [facility] DATE CREATED AUTHOR AUTHOR'S ORGANIZ ATION 01/17/2019 [facility] DATE CREATED AUTHOR AUTHOR'S ORGANIZ ATION 12/16/2020 [facility] DATE CREATED AUTHOR AUTHOR'S ORGANIZ ATION 12/16/2020 [facility] DATE CREATED AUTHOR AUTHOR'S ORGANIZ ATION 01/12/2021 [facility] DATE CREATED AUTHOR AUTHOR'S ORGANIZ ATION 01/27/2023 [facility] DATE CREATED AUTHOR AUTHOR'S ORGANIZ ATION 03/23/2023 [facility] DATE CREATED AUTHOR AUTHOR'S ORGANIZ ATION 12/26/2023 [facility] DATE CREATED AUTHOR AUTHOR'S ORGANIZ ATION 05/11/2024 [facility] DATE CREATED AUTHOR AUTHOR'S ORGANIZ ATION 07/20/2024 [facility] EPIC Source Comments (unrecognize d section and content) In the event this informatio n is protected by the Federal Confidentiality of Alcohol and Drug Abuse Patient Records regulations: The Federal rules restrict any use of the information to criminally investigate or prosecute any alcohol or drug abuse patient.[facility] Reason for Visit (unrecogniz ed section and content) Reason Onset Date Comments Results 12/10/2013 Reason Comments Dry cough Reason Comments Sinusitis Follow up cici [facility] 06/22/24 Patient Care team informatio n (unrecognized section [...] May 23, 2024 End: May 23, 2024 Fisher Seal Relationship Specialty Start Date End Date Xiomara Aaron MD [address] [place] [address] PCP - General Family Medicine 11/08/23 Fisher Seal Relationship Specialty Start Date End Date Xiomara Aaron MD [address] [place] [address] PCP - General Family Medicine 11/08/23 Fisher Seal Relationship Specialty Start Date End Date Xiomara Aaron MD [address] [place] [address] PCP - General Family Medicine 11/08/23 Fisher Seal Relationship Specialty Start Date End Date Xiomara Aaron MD [address] [place] [address] PCP - General Family Medicine 11/08/23 Goals [...] BE BASED ON THE PRIMARY CLINICAL RECORDS. [employer] [facility]. provides no warranty or guarantee of the accuracy or completeness of information in this document.
[2024-08-05 09:54] LABS: Basophils Percent Auto 0.8 % (0.2-2.0); Eosinophils Absolute Auto 0.1 10^3/uL (0.0-0.7); Eosinophils Percent Auto 2.5 % (0.9-7.0); Hematocrit 39.7 % (36.0-48.0); Hemoglobin 13.2 g/dL (12.0-16.0); Immature Granulocytes Abs Auto 0.01 10^3/uL (0.00-0.03); Immature Granulocytes Pct Auto 0.2 % (0.0-0.5); Lymphocytes Absolute Auto 1.8 10^3/uL (1.2-3.8); Lymphocytes Percent Auto 36.2 % (20.5-60.0); Mean Corpuscular HGB Conc 33.2 g/dL (29.9-35.2); Mean Corpuscular Hemoglobin 31.7 pg (26.7-34.0); Mean Corpuscular Volume 95.2 fL (81.0-99.0); Monocytes Absolute Auto 0.3 10^3/uL (0.3-0.8); Monocytes Percent Auto 6.4 % (1.7-12.0); Neutrophils Absolute Auto 2.6 10^3/uL (1.4-6.5); Neutrophils Percent Auto 53.9 % (43.0-75.0); Platelet Count 216 10^3/uL (150-450); Red Blood Count 4.17 10^6/uL (4.20-5.40); Red Cell Distribution Width 12.7 % (11.0-15.0); White Blood Count 4.8 10^3/uL (4.0-11.0)
== END 2024-08-05 08:57 | disposition home or self-care (01) ==
LOC: PST 08:56
PROVIDERS: PCP Family Medicine; Visit Provider Otolaryngology
DX: Z01.810 Encounter for preprocedural cardiovascular examination (principal); Z01.812 Encounter for preprocedural laboratory examination; J34.3 Hypertrophy of nasal turbinates
CPT/HCPCS: 85025; 93005

== ENCOUNTER 2024-08-15 10:04 | Day surgery (SDC) | payer BC, SELFPAY ==
[2024-08-05 09:25] VITALS: BP 102/65; PULSE 62; TEMP 36.2; O2SAT 99; BMI 23.2
[2024-08-15] VITALS (12 sets, daily range): BP systolic 105–143; BP diastolic 65–97; PULSE 60–86; TEMP 36.1–36.6; O2SAT 88–99; BMI 23.2
--- NOTE | 2024-08-15 | OP_ITS ---
OPERATION DATE: 08/15/2024 PRIMARY CARE PHYSICIAN: Tavia Barnard M.D. SURGEON: Brianna Gallagher M.D. PREOPERATIVE DIAGNOSIS: Bilateral inferior turbinate hypertrophy. POSTOPERATIVE DIAGNOSIS: Bilateral inferior turbinate hypertrophy. PROCEDURE: Bilateral inferior turbinate submucosal resection. ANESTHESIA: General endotracheal. COMPLICATIONS: None. FINDINGS: Bilateral inferior turbinate hypertrophy. INDICATIONS: This 54-year-old woman presented with bilateral nasal obstruction secondary to inferior turbinate hypertrophy, unresponsive to aggressive medial management. PROCEDURE: Patient identified in the holding area and taken back to the OR where she was placed in the supine position. After induction of general endotracheal anesthesia, the table was turned, the head elevated and the face was draped in a sterile fashion. Afrin soaked pledgets placed were in each side of the nose. After waiting adequate time for decongestion, both sides of the nose were copiously irrigated, and then the inferior turbinates were injected with lidocaine 1% with 1:100,000 epinephrine. After waiting adequate time for decongestion, attention was turned to the left side of the nose. A stab incision was made in the anterior portion of the inferior turbinate and a caudal elevator used to create a tunnel along the medial surface of the turbinate bone. Then, a 2.0 mm microdebrider was used to exenterate the submucosal tissues of the turbinate. The turbinate was then outfractured and the nose packed with Afrin soaked pledgets. Attention was then turned to the right side and the same procedure performed. The Afrin soaked packing was removed in the recovery room. Patient was then awakened and taken to the recovery room in good condition. LEILANI
--- OUTSIDE RECORDS SUMMARY | 2024-08-15 10:24 | XMS_ITS | CCD ---
Author Organization [facility] Care Team Providers Care Pile Driving Superintendent Name Role Phone Saba Jenkins Unavailable Unavailable Furness, Yan T Unavailable Unavailable London, Ba U Unavailable Unavailable Wood, Javad Unavailable Unavailable Fried, Fely Unavailable Unavailable Furness, Yan Unavailable Unavailable RoldanMelvin martin Unavailable Unavailable Furness, Yan T Primary Care Provider [phone] Pending Provider Unavailable Unavailable Unavailable Unavailable Unavailable [...] Asaad, Imad Admitting Unavailable Freya Ponce Unavailable [phone] DON ABRAHAM Referring Unavailable XIOMARA AARON Primary Care Unavailable FREDY JOHNSON Attending UnavailXiomara Bone MD Primary Care Provider [phone] ANA INGRAM Attending Unavailable JOBY MILLER Attending Unavailable KIM BURNETTE Attending Unavailable KIM BURNETTE Attending Unavailable Allergies Allergy Classification Reported Allergen(s) Allergy Type Date of Onset Reaction(s) Facility Macrolides (antibiotic) (3 sources) Azithromycin; Translations: [erythromycin] Drug Allergy 07-30-20 12 Vomiting [facility] (20 sources) Erythromycin; Translations: [Erythromycin] Drug Allergy 02-09-20 23 Vomitus (substance), GI intolerance [facility] Work Phone: (1 source) Erythromycin Drug Allergy 07-02-20 [facility] (1 source) Erythromycin Drug Allergy 09-21-19 21 [facility] (6 sources) Allergies Reconciled Propensity to adverse reactions Unknown [employer] Other Medications Current Medications Medication Drug Class(es) Dates Sig (Normalized) Sig (Original) [id number] 200 actuat albuterol 0.09 mg/actuat metered dose inhaler (16 sources) beta2-Adrenergic Agonist Start: 03-16-2023 take 90 [...] mg vaginal insert (20 sources) Estrogen Start: 07-22-2024 estradiol (Vag ifem) 10 MCG tablet vaginal tablet Indications: Asymptomatic menopausal state Insert 1 tablet (10 mcg) into the vagina 2 (two) times a week Insert 1 tablet into vagina at bedtime for 2 weeks, then at bedtime twice a week. 24 tablet 1 07/22/2024 Active Start: 05-23-2024 take 1 mg by mouth [...] Quantity: 20 Refills: 5 Ordered: 08-Sep-2020 Fried LOUIS, CASSANDRA-IAP DISPLAYS ANALYST, Fely Start : 08-Sep-2020 Active Vagifem [...] 2024 12:00am montelukast 10 mg oral tablet (12 sources) Leukotriene Receptor Antagonist Start: End: take 1 tablet by mouth at bedtime [...] Ordered Multiple Vitamins-Minerals (MULTIVITAMIN ADULT, MINERALS, PO) (7 sources) take 1 dose by mouth once [...] intercourse, # 30 cap(s), Refills(s) 3, Pharmacy: [facility]/pharmacy #[id number], 170, cm, 04/26/23 13:36:00 EDT, Height/Length Dosing, [...] Daily, # 90 tab(s), Refills(s) 3, Pharmacy: [facility]/pharmacy #[id number], 170, cm, 12/08/21 9:43:00 EDT, Height/Length [...] by chau th daily at bedtime. amylase [id number] unt / lipase 56631 unt / protease 628128 unt delayed release oral capsule (8 sources) Start: 11-01-2021 take 1 capsule by mouth every eight hours Zenpep [id number] UNIT 1 CAPSULE Orally THREE TIMES A DAY for 30 days Oct, Not-Taking Biotin (9 sources) Start: 03-16-2023 End: 10-25-2023 take 3334 ug by mouth once daily Biotin Discontinued 3334 MCG PO Daily March 16, 2023 12:00am October 25, 2023 11:08am take 1 tablet by chau th every twenty-four hours Biotin 53515 MCG 1 tablet Orally Once a day Active take 1 tablet by chau th every twenty-four hours Biotin 74808 MCG 1 tablet Orally Once a day Active take 1 tablet by mouth once emy y Biotin 61017 MCG 1 tablet Orally Once a day [...] per week x 10 weeks. estrogens, conjugated (residential) 1.25 mg oral tablet (3 sources) Estrogen Start: 05-19-2020 take 1 tablet by mouth once daily Premarin 1.25 MG Oral Tablet TAKE 1 TABLET BY MOUTH EVERY DAY Quantity: 90 Refills: 3 Ordered: 13-Aug-2020 [place] DO, Melvin Start : 19-May-2020 Active ESTROGENS, [...] Start : 31-Jul-2019 Active Olopatadine HCl Active [place] 0-Srw-Fwq-Fish Oil (Fish Oil) 100-160-1,000 mg capsule (2 sources) Start: 10-24-2023 End: 10-25-2023 take 100-160 capsules by mouth once daily [place] 2-Cwg-Hnj-Fish Oil (Fish Oil) 100-160-1,000 mg capsule Discontinued 1 CAP PO Daily October 24, 2023 1:00am October 25, 2023 11:08am [place]-3 Fatty Acids (Fish Oil) Capsule (2 sources) Start: 03-16-2023 End: 10-23-2023 take 1 capsule by mouth once daily [place]-3 Fatty Acids (Fish Oil) Capsule Discontinued 1000 MG PO Daily March 16, 2023 12:00am October 23, 2023 4:20pm polyethylene glycol 3350 731995 mg / potassium chloride 2970 mg / sodium bicarbonate 6740 mg / sodium chloride 5860 mg / sodium sulfate 81348 mg powder for oral solution (3 sources) [...] aura, intractable, without status migrainosus] Onset: 3 12-12-2013 Chronic Immunizations and screening for infectious disease [...] Onset: 2 Episodic Other upper respiratory disease (14 sources) Allergic rhinitis; Translations: [Allergic rhinitis due to other allergen] Onset: 4 10-25-2023 Chronic Other upper respiratory disease (5 sources) Hypertrophy of nasal turbinates; Translations: [Hypertrophy [...] state] Onset: 10-27-2021 Episodic Residual codes; unclassified (9 sources) Menopause present; Translations: [Asymptomatic menopausal state] [...] Test Name Value Interpretation Reference Range Facility ALL CBC WITH AUTO DIFFon BASOPHILS ABSOLUTE AUTO 0 [facility] Basophils/100 WBC (Bld) 0.8 % 0.2 - 2.0 % [facility] Eosinophils/100 WBC (Bld) 2.5 % 0.9 - 7.0 % [facility] Erythrocyte distribution width (RBC) [Ratio] 12.7 % 11.0 - 15.0 % [facility] Hematocrit (Bld) [Volume fraction] 39.7 % 36.0 - 48.0 % [facility] Hemoglobin (Bld) [Mass/Vol] 13.2 g/dL 12.0 - 16.0 g/dL [facility] IMMATURE GRANULOCYTES ABS AUTO 0.01 [facility] Immature granulocytes/100 WBC (Bld) 0.2 % 0.0 - 0.5 % [facility] Interpretation and review of laboratory results Abnormal [facility] LYMPHOCYTES ABSOLUTE AUTO 1.8 [facility] Lymphocytes/100 WBC (Bld) 36.2 % 20.5 - 60.0 % [facility] MCH (RBC) [Entitic mass] 31.7 pg 26.7 - 34.0 pg [facility] MCHC (RBC) [Mass/Vol] 33.2 g/dL 29.9 - 35.2 g/dL [facility] MCV (RBC) [Entitic vol] 95.2 fL 81.0 - 99.0 fL [facility] MONOCYTES ABSOLUTE AUTO 0.3 [facility] Monocytes/100 WBC (Bld) 6.4 % 1.7 - 12.0 % [facility] NEUTROPHILS ABSOLUTE AUTO 2.6 [facility] Neutrophils/100 WBC (Bld) 53.9 % 43.0 - 75.0 % [facility] Platelet mean volume (Bld) [Entitic vol] 10 fL 9.5 - 13.5 fL [facility] TBH EO # 0.1 [facility] TB PLT 216 [facility] TB RBC 4.17 Low [facility] TB WBC 4.8 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 Was taking once weekly with good results. Stopped about 6-12 mos ago without any breakthrough infections. No current UTI sx. Unable to give sample today. Ordered: E&M of Est. Patient Low 20-29 Min 69827 2. OAB (overactive bladder) (N32.81: Overactive bladder) Oxybutynin ER 5mg QD (switched from IR previously). I see that she is consistently filling this. No bothersome SE's. Denies frequency. Feels medication is working well and does not wish to make any adjustments at this time. Refills sent. Ordered: E&M of Est. Patient Low 20-29 Min 19710 3. IBS (irritable bowel syndrome) (K58.9: Irritable [...] E&M of Est. Patient Low 20-29 Min 07731 Orders: nitrofurantoin, See Instructions, 1 cap orally after intercourse, # 30 cap(s), Refills(s) 3, [id number] 170, cm, 04/26/23 13:36:00 EDT, Height/Length Dosing, 69.1, kg, 04/26/23 13:36:00 EDT, Weight Dosing oxybutynin, 5 mg = 1 tab(s), Oral, Daily, # 90 tab(s), Refills(s) 3, [id number] 170, cm, 05/09/24 10:34:00 EDT, Height/Length [...] mRNA BNT-162b2 vax 11/25/2020 Recorded Normal [facility] Comment on above: Result Comment: Elec tronically Signed By: ALEX DANIEL, FREYA Chao\Date and Time Signed: 05/09/24 11:05 EDT Cortisol [Mass/Vol]on 2023 CORTISOL 9.4 ug/dL Normal [facility] Comment on above: Result Comment: Due to the diurnal variation of cortisol levels in normal subjects, all cortisol measurements should be referenced to the time of day of sample collection. AM Cortisol Age>=6 6.7-22.4 ug/dL PM Cortisol Age>=6 <10 ug/dL Performed By: #### 2 143-6 #### [facility] ([id number]) [address], [address] [place] [address] THYROGLOBULIN ABon 4 Thyroglobulin Ab Qn [IU]/mL Normal <4.0 [facility] Comment on above: Performed By: #### 3 5365-6, 8098-6, 8099-4 #### [facility] ([id number]) [address], [address] [place] [address] THYROPEROXIDASE ABon 024 TPO Ab Qn [IU]/mL Normal <10 [facility] Comment on above: Performed By: #### 3 5365-6, 8098-6, 8099-4 #### [facility] ([id number]) [address], [address] [place] [address] Vitamin D+Metabolites [Mass/ Vol]on 12-25-2023 VITAMIN D 25 HYD TOT 28.2 ng/mL Low 30-100 [facility] Comment on above: Result Comment: Vitamin D status 25 [place] Vitamin D Deficiency <20 ng/mL Insufficiency 20-29 ng/mL Sufficiency 30-100 ng/mL Toxicity >100 ng/mL NOTE: A pediatric reference range has not been established by the photographer still of this kit. The [place] [employer] recommends a Vitamin D level of = or >20ng/mL in infants and children. Performed By: #### 3 5365-6, 8098-6, 8099-4 #### [facility] ([id number]) [address] [place] [address] Adrian 03-16-2023 L -- Specimen: [id number] Received: 03/16/23 Status: NANDADarline Nilam Num: [id number] Spec Type: Surgical Subm Dr: Meseret Cool MD Tissues: A Duodenum - Biopsy (DUODENAL BX) B GASTRIC FOR HP (GASTRIC HP) C Gastric Biopsy (GASTRIC POLYP) D Colon Biopsy (RANDOM BX) Procedures: TOM/Chris, Gross/Micro L4/4, H PYLORI -- Age/ Patient Sex Location Account Attending Physician -- Patty Gaxiola 53/F [id number] Meseret Cool MD -- SPEC NUM: [id number] RECD: 03/16/23 STATUS: KYLE HERNANDEZ NUM: [id number] GILMAR: 03/16/23 DR: Meseret Cool MD ENTERED: 03/16/23 [facility] DR: SPEC TYPE: Surgical DEPT: S ORDERED: [...] for H. pylori (immunohistochemical stain) -- Specimen: [id number] Received: 03/16/23 [facility] Num: [id number] Spec Type: Surgical Subm Dr: Meseret Cool MD Tissues: A Duodenum - Biopsy (DUODENAL BX) B GASTRIC FOR HP (GASTRIC HP) C Gastric Biopsy (GASTRIC POLYP) D Colon Biopsy (RANDOM BX) Procedures: HE/8, Gross/Micro L4/4, H PYLORI -- Patient: Patty Gaxiola [id number] (Continued) -- Specimen: [id number] Received: 03/16/23 (Continued) Pathological Diagnosis (Continued) Signed (signature on file) Glen Selby MD 03/21/23 1152 -- Specimen: [id number] Received: 03/16/23 Status: KYLE Demarco Num: [id number] Spec Type: Surgical Subm Dr: Meseret Cool MD Tissues: A Duodenum - Biopsy (DUODENAL BX) B GASTRIC FOR HP (GASTRIC HP) C Gastric Biopsy (GASTRIC POLYP) D Colon Biopsy (RANDOM BX) Procedures: HE/8, Gross/Micro L4/4, H PYLORI -- Patient: Patty Gaxiola [id number] (Continued) -- Specimen: [id number] Received: 03/16/23-1352 (Continued) Pathological Diagnosis (Continued) D. [...] examination confi (more content not included)... Normal [facility] CBC AUTO DIFFon 01-18-2023 BASO # 0.1 103/ul Normal 0.0-0.1 [facility] Comment on above: Performed By: #### C BC #### [facility] [address] [place] [address] Dr. Vasyl Irving Basophils/100 WBC (Bld) 1.0 % Normal 0.2-2.0 [facility] Comment on above: Performed By: #### C BC #### [facility] [address] [place] [address] Dr. Vasyl Irving EO # 0.1 103/ul Normal 0.0-0.7 [facility] Comment on above: Performed By: #### C BC #### [facility] [address] [place] [address] Dr. Vasyl Irving Eosinophils/100 WBC (Bld) 2.0 % Normal 0.9-7.0 [facility] Comment on above: Performed By: #### C BC #### [facility] [address] [place] [address] Dr. Vasyl Irving Erythrocyte distribution width (RBC) [Ratio] 12.7 % Normal 11.0-15.0 [facility] Comment on above: Performed By: #### C BC #### [facility] [address] [place] [address] Dr. Vasyl Irving Hematocrit (Bld) [Volume fraction] 42.6 % Normal 36.0-48.0 [facility] Comment on above: Performed By: #### C BC #### [facility] [address] [place] [address] Dr. Vasyl Irving Hemoglobin (Bld) [Mass/Vol] 14.2 g/dL Normal 12.0-16.0 [facility] Comment on above: Performed By: #### C BC #### [facility] [address] [place] [address] Dr. Vasyl Irving IG # 0.01 10e3/ul Normal 0.00-0.03 [facility] Comment on above: Performed By: #### C BC #### [facility] [address] [place] [address] Dr. Vasyl Irving IG % 0.2 % Normal 0.0-0.5 [facility] Comment on above: Performed By: #### C BC #### [facility] [address] [place] [address] Dr. Vasyl Irving LYMPH # 2.2 103/ul Normal 1.2-3.8 [facility] Comment on above: Performed By: #### C BC #### [facility] [address] [place] [address] Dr. Vasyl Irving Lymphocytes/100 WBC (Bld) 42.2 % Normal 20.5-60.0 [facility] Comment on above: Performed By: #### C BC #### [facility] [address] [place] [address] Dr. Vasly Irving MANUAL DIFF REQ NO Normal [facility] Comment on above: Performed By: #### C BC #### [facility] [address] [place] [address] Dr. Vasyl Irving MCH (RBC) [Entitic mass] 31.7 pg Normal 26.7-34.0 [facility] Comment on above: Performed By: #### C BC #### [facility] [address] [place] [address] Dr. Vasyl Irving MCHC (RBC) [Mass/Vol] 33.3 g/dL Normal 29.9-35.2 [facility] Comment on above: Performed By: #### C BC #### [facility] [address] [place] [address] Dr. Vasyl Irving MCV (RBC) [Entitic vol] 95.1 fL Normal 81.0-99.0 [facility] Comment on above: Performed By: #### C BC #### [facility] [address] [place] [address] Dr. Vasyl Irving MONO # 0.3 103/ul Normal 0.3-0.8 [facility] Comment on above: Performed By: #### C BC #### [facility] [address] [address] [address] Vasyl Irving Monocytes/100 WBC (Bld) 5.9 % Normal 1.7-12.0 [facility] Comment on above: Performed By: #### C BC #### [facility] [address] [address] [address] Vasyl Irving NEUT # 2.5 103/ul Normal 1.4-6.5 [facility] Comment on above: Performed By: #### C BC #### [facility] [address] [place] [address] Dr. Vasyl Irving Neutrophils/100 WBC (Bld) 48.7 % Normal 43.0-75.0 [facility] Comment on above: Performed By: #### C BC #### [facility] [address] [place] [address] Dr. Vasyl Irving Platelet mean volume (Bld) [Entitic vol] 9.7 fL Normal 9.5-13.5 [facility] Comment on above: Performed By: #### C BC #### [facility] [address] [place] [address] Dr. Vasyl Irving PLT 220 103/ul Normal 150-450 [facility] Comment on above: Performed By: #### C BC #### [facility] [address] [place] [address] Dr. Vasyl Irving RBC 4.48 106/ul Normal 4.20-5.40 [facility] Comment on above: Performed By: #### C BC #### [facility] [address] [place] [address] Dr. Vasyl Irving WBC 5.1 103/ul Normal 4.0-11.0 [facility] Comment on above: Performed By: #### C BC #### [facility] [address] [place] [address] Dr. Vasyl Irving CRPon 01-18-2023 CRP [Mass/Vol] mg/L Normal <=1.0 [facility] Comment on above: Performed By: #### C RP, TSH #### [facility] [address] [place], [place] [address] Dr. Vasyl Irving [facility] 13 mm/hr Normal <=30 [facility] Comment on above: Performed By: #### S EDR #### [facility] [address] [place], [place] [address] Dr. Vasyl Irving TSHon 01-18-2023 TSH 1.088 uIU/mL Normal 0.358-3.74 0 [facility] Comment on above: Performed By: #### C RP, TSH #### [facility] [address] [address] [address] Vasyl Irving MG MAMM SCREEN 3D EDWARD CADon 01-09-2023 MG MAMM SCREEN 3D EDWARD CAD Patient: PATTY GAXIOLA Exam Date: 01/09/2023 : 1970 Gender:F Ordering : DR BRIJESH KEATING . Admission #: [id number] Family : Order #: [id number] CLICK HERE TO VIEW EXAM RADIOLOGY REPORT [...] Treatments None Family Cancers None LOCATION: [facility] BREAST COMPOSITION: Heterogeneously dense,which may obscure [...] Jose Easley M.D. on 01/09/2023 at 12:05 [facility] PAP ACOG PANEL 2: 30 to 65on 11-09-2022 . . Normal [facility] Comment on above: Result Comment: Perf ormed at: WB Performed By: #### 4 [id number] #### [facility] [address] [place] [address] Dr. Vasyl Irving Age Gdln ACOG Testing 30-65 Normal [facility] Comment on above: Performed By: #### 4 [id number] #### [facility] [address] [address] [address] Vasyl Irving DIAGNOSIS: Comment Normal [facility] Comment on above: Result Comment: NEGA TIVE FOR INTRAEPITHELIAL LESION OR MALIGNANCY. Performed at: WB Performed By: #### 4 [id number] #### [facility] [address] [place] [address] Dr. Vasyl Irving HPV Aptima Negative Normal Negative [facility] Comment on above: Result Comment: This nucleic acid amplification test detects fourteen high-risk HPV types (16,18,31,33,35,39,45,51,52,56,58,59,66,68) without differentiation. Performed at: =G Performed By: #### 4 [id number] #### [facility] [address] [address] [address] Vasyl Irving HPV Genotype Reflex Comment [facility] Comment on above: Result Comment: Crit eria not met, HPV Genotype not performed. Performed at: WB Performed By: #### 4 [id number] #### [facility] [address] [place] [address] Dr. Vasyl Irving Methodology: Comment [facility] Comment on above: Result Comment: This liquid based ThinPrep(R) pap test was screened with the use of an image guided system. Performed at: WB Performed By: #### 4 [id number] #### [facility] [address] [place] [address] Dr. Vasyl Irving Note: Comment Normal [facility] Comment on above: Result Comment: The Pap smear is a screening test designed to aid in the detection of premalignant and malignant conditions of the uterine cervix. It is not a diagnostic procedure and should not be used as the sole means of detecting cervical cancer. Both false-positive and false-negative reports do occur. . Performed at: WB Performed By: #### 4 [id number] #### [facility] [address] [place] [address] Dr. Vasyl Irving Performed by: Comment Normal [facility] Comment on above: Result Comment: Ebenezer Wang, Podiatric Medicine Doctor (ASCP) Performed at: WB Performed By: #### 4 [id number] #### [facility] [address] [place] [address] Dr. Vasyl Irving Specimen adequacy: Comment Normal [facility] Comment on above: Result Comment: Sati sfactory for evaluation. No endocervical cells are present. This is consistent with a history of hysterectomy. Performed at: WB Performed By: #### 4 [id number] #### [facility] [address] [place] [address] Dr. Vasyl Irving STOOL CULTUREon 07-29-2022 Campylobacter Culture Final report Normal [facility] Comment on above: Performed By: #### C XSTOOL #### [facility] [address] [place] [address] Dr. Vasyl Irving E coli Shiga Toxin EIA Negative Normal Negative [facility] Comment on above: Performed By: #### C XSTOOL #### [facility] [address] [place] [address] Dr. Vasyl Irving Result 1 Comment Normal [facility] Comment on above: Result Comment: No S almonella or Shigella recovered. Performed By: #### C XSTOOL #### [facility] [address] [place] [address] Dr. Vasyl Irving Result Comment: No C ampylobacter species isolated. Salmonella/Shigel la Screen Final report Normal [facility] Comment on above: Performed By: #### C XSTOOL #### [facility] [address] [place] [address] Dr. Vasyl Irving Urinalysis - AUTOMATEDon Appearance (U) thick [place] [employer] Other Bilirubin Ql (U) Negative Stalkthis ast WHILL Other Color (U) red/orange [employer] Other Glucose Ql (U) 100 [employer] Other Hemoglobin Ql (U) moderate ProtoStar [employer]Around Other Ketones Ql (U) trace [employer] Other Leukocyte esterase Test strip Ql (U) large [employer] Other Nitrite Ql (U) Positive [employer] Other pH (U) 5.0 [pH] [employer] Other Protein Ql (U) 100 [employer] Other Specific gravity (U) [Rel density] 1.010 [employer] Other Urobilinogen (U) [Mass/Vol] 2.0 mg/dL [employer] Other Urinalysis - AUTOMATED [employer] Other DIGITAL MAMM SCREENING W/ TO Agudelo 01-04-2021 DIGITAL MAMM SCREENING W/ ANIVAL Patient Name: PATTY GAXIOLA STUDY: Digital mammography screening with anival; 01/04/2021 9:17 am ACCESSION NUMBER(S): [id number] ORDERING CLINICIAN: FELY MONROY INDICATION: Screening. COMPARISON: [...] Screening. Electronically signed by: MAYANK SALES MD [facility] Mamm - Screening Mammogram w / Tomosynthesison 01-04-2021 MG Breast Screening Normal [facility] [employer] Work Phone: SPIRITUAL CARE COORDINATOR - Procedure Visiton 0 12-15-2020 SPIRITUAL CARE COORDINATOR - Procedure Visit Diagnoses/Problems Encounter for preventive [...] DIRECTED. Vitals Vital Signs Recorded: 15Dec2020 08:54AM Njcrtonxyun53.8 F Qlqyuqwt731 Uzoixebti23 Height5 ft 7.5 in Cgwwlx892 lb 3.65 oz BMI Bvxaivctzl51.33 BSA Calculated1.74 LMPhsyter Physical Exam A+O x [...] and is (more content not included)... Normal [facility] K.K SPIRITUAL CARE COORDINATOR - Office Visiton 04-22 SPIRITUAL CARE COORDINATOR - Office Visit Chief Complaint PATIENT HERE [...] 4 times daily PRN abdominal cramping; Therapy: 70Iqm9221 to (Evaluate:76Wpn8965) Requested for: 66Osf4888; Last Rx:[id number] Ordered Rx By: Yan Winslow; Dispense: 8 Days ; #:30 Tablet; Refill: 1;For: Epigastric pain; ELADIO = N; Verified Transmission to [id number]; Last Updated By: Wang Wolf; 05/06/2020 11:44:32 AM Famotidine 20 MG Oral Tablet; Take 1 tablet twice daily; Therapy: 74Fty6792 to (Evaluate:68Jul6192) Requested for: 14Fxm6585; Last Rx:[id number] Ordered Rx By: Yan Winslow; Dispense: 30 Days ; #:60 Tablet; Refill: 1;For: Epigastric pain; ELADIO = N; Verified Transmission to [facility] #6167; Last Updated By: BlueLithium; 05/06/2020 11:44:29 AM Nortriptyline HCl - 25 MG Oral Capsule; TAKE 1 CAPSULE AT BEDTIME; Therapy: 25Oct2019 to (Evaluate:19Oct2020) Requested for: 25Oct2019; Last Rx:25Oct2019 Ordered Rx By: Yan Winslow; Dispense: 90 Days ; #:90 Capsule; Refill: 3;For: Health Maintenance; ELADIO = N; Verified Transmission to [facility] #6167; Last Updated By: BlueLithium; 10/25/2019 11:30:52 AM Pantoprazole Sodium 40 MG Oral Tablet Delayed Release; TAKE 1 TABLET DAILY Requested for: 03Feb2020; Last Rx:03Feb2020 Ordered Rx By: Yan Winslow; Dispense: 90 Days ; #:90 Tablet; Refill: 3;For: Health Maintenance; ELADIO = N; Verified Transmission to [facility] #6167; Last Updated By: BlueLithium; 02/03/2020 11:36:26 AM Levothyroxine Sodium 100 MCG Oral Tablet; TAKE 1 TABLET DAILY Requested for: 03Feb2020; Last Rx:03Feb2020 Ordered Rx By: Yan Winslow; Dispense: 90 Days ; #:90 Tablet; Refill: 3;For: Hypothyroidism, unspecified type; ELADIO = N; Verified Transmission to [facility] #6167; Last Updated By: BlueLithium; 02/03/2020 11:36:28 AM Oxybutynin (more content not included)... Normal [facility] CBC AND DIFFERENTIALon 05-06 Basophils (Bld) [#/Vol] 0.00 10*3/uL Normal 0.00 - 0.10 [facility] Comment on above: Performed By: #### C BCDF #### [address] [address] Basophils/100 WBC (Bld) 0.7 % Normal 0.0 - 2.0 [facility] Comment on above: Performed By: #### C BCDF #### [address] [place] [address] Eosinophils (Bld) [#/Vol] 0.10 10*3/uL Normal 0.00 - 0.70 [facility] Comment on above: Performed By: #### C BCDF #### [address] [address] Eosinophils/100 WBC (Bld) 2.2 % Normal 0.0 - 6.0 [facility] Comment on above: Performed By: #### C BCDF #### [address] [address] Erythrocyte distribution width (RBC) [Ratio] 13.6 % Normal 11.5 - 14.5 [facility] Comment on above: Performed By: #### C BCDF #### [address] [address] Hematocrit (Bld) [Volume fraction] 43.7 % Normal 36.0 - 46.0 [facility] Comment on above: Performed By: #### C BCDF #### [address] [address] Hemoglobin (Bld) [Mass/Vol] 14.4 g/dL Normal 12.0 - 16.0 [facility] Comment on above: Performed By: #### C BCDF #### [address] [address] Lymphocytes (Bld) [#/Vol] 1.80 10*3/uL Normal 1.20 - 4.80 [facility] Comment on above: Performed By: #### C BCDF #### [address] [address] Lymphocytes/100 WBC (Bld) 30.2 % Normal 13.0 - 44.0 [facility] Comment on above: Performed By: #### C BCDF #### [address] [address] MCHC (RBC) [Mass/Vol] 32.9 g/dL Normal 32.0 - 36.0 [facility] Comment on above: Performed By: #### C BCDF #### [address] [address] MCV (RBC) [Entitic vol] 97 fL Normal 80 - 100 [facility] Comment on above: Performed By: #### C BCDF #### [address] [address] Monocytes (Bld) [#/Vol] 0.30 10*3/uL Normal 0.10 - 1.00 [facility] Comment on above: Performed By: #### C BCDF #### [address] [address] Monocytes/100 WBC (Bld) 5.6 % Normal 2.0 - 10.0 [facility] Comment on above: Performed By: #### C BCDF #### [address] [address] Neutrophils (Bld) [#/Vol] 3.60 10*3/uL Normal 1.20 - 7.70 [facility] Comment on above: Result Comment: Perc ent differential counts (%) should be interpreted in the context of the absolute cell counts (cells/L). Performed By: #### C BCDF #### [address] [address] Neutrophils/100 WBC (Bld) 61.3 % Normal 40.0 - 80.0 [facility] Comment on above: Performed By: #### C BCDF #### [address] [address] Platelets (Bld) [#/Vol] 224 10*3/uL Normal 150 - 450 [facility] Comment on above: Performed By: #### C BCDF #### [address] [address] RBC 4.52 x10E12/L Normal 4.00 - 5.20 [facility] Comment on above: Performed By: #### C BCDF #### [address] [address] WBC (Bld) [#/Vol] 5.8 10*3/uL Normal 4.4 - 11.3 [facility] Comment on above: Performed By: #### C BCDF #### [address] [address] COMPREHENSIVE PANELon 2019 Albumin [Mass/Vol] 4.2 g/dL Normal 3.4 - 5.0 [facility] Comment on above: Performed By: #### C MP #### [address] [address] ALP [Catalytic activity/Vol] 64 U/L Normal 33 - 110 [facility] Comment on above: Performed By: #### C MP #### [address] [address] ALT [Catalytic activity/Vol] 17 U/L Normal 7 - 45 [facility] Comment on above: Result Comment: Sandie ents treated with Sulfasalazine may generate falsely decreased results for ALT. Performed By: #### C MP #### [address] [address] Anion gap [Moles/Vol] 10 mmol/L Normal 10 - 20 [facility] Comment on above: Performed By: #### C MP #### [address] [address] AST [Catalytic activity/Vol] 23 U/L Normal 9 - 39 [facility] Comment on above: Performed By: #### C MP #### [address] [address] Bilirubin [Mass/Vol] 0.6 mg/dL Normal 0.0 - 1.2 [facility] Comment on above: Performed By: #### C MP #### [address] [address] Calcium [Mass/Vol] 9.3 mg/dL Normal 8.6 - 10.3 [facility] Comment on above: Performed By: #### C MP #### [address] [address] Chloride [Moles/Vol] 103 mmol/L Normal 98 - 107 [facility] Comment on above: Performed By: #### C MP #### [address] [address] Creatinine [Mass/Vol] 0.55 mg/dL Normal 0.50 - 1.05 [facility] Comment on above: Performed By: #### C MP #### [address] [address] GFR- AM. >60 Normal >60 [facility] Comment on above: Result Comment: CALC ULATIONS OF ESTIMATED GFR ARE PERFORMED USING THE MDRD STUDY EQUATION FOR THE IDMS-TRACEABLE CREATININE METHODS. CLIN CHEM 2007;53:766-72 Performed By: #### C MP #### [address] [address] GFR-NON AM. >60 Normal >60 [facility] Comment on above: Performed By: #### C MP #### [address] [address] Glucose [Mass/Vol] 58 mg/dL Low 74 - 99 [facility] Comment on above: Performed By: #### C MP #### [address] [address] HCO3 (Bld) [Moles/Vol] 30 mmol/L Normal 21 - 32 [facility] Comment on above: Performed By: #### C MP #### [address] [address] Potassium [Moles/Vol] 4.0 mmol/L Normal 3.5 - 5.3 [facility] Comment on above: Performed By: #### C MP #### [address] [address] Protein [Mass/Vol] 6.7 g/dL Normal 6.4 - 8.2 [facility] Comment on above: Performed By: #### C MP #### [address] [address] Sodium [Moles/Vol] 139 mmol/L Normal 136 - 145 [facility] Comment on above: Performed By: #### C MP #### [address] [address] Urea nitrogen [Mass/Vol] 14 mg/dL Normal 6 - 23 [facility] Comment on above: Performed By: #### C MP #### [place] [id number] LIPASEon 05-06-2020 Lipase [Catalytic activity/Vol] 22 U/L Normal 9 - 82 [facility] Comment on above: Result Comment: Francheska puncture immediately after or during the administration of Metamizole may lead to falsely low results. Testing should be performed immediately prior to Metamizole dosing. Performed By: #### L IPAS #### [facility] [address] [place] [address] Office Visit (Primary Care T xt/Forms)on 05-06-2020 Follow-up visit Diagnoses/Problems Assessed Epigastric pain (789.06) (R10.13) Fatigue (780.79) (R53.83) Nausea in adult (787.02) (R11.0) Orders Epigastric pain Start: Dicyclomine HCl - 20 MG Oral Tablet; TAKE 1 TABLET 4 times daily PRN abdominal cramping Complete Blood Count + Differential; Status:Active; Requested for:[id number]; Start: Famotidine 20 MG Oral Tablet; Take 1 tablet twice daily Comprehensive Metabolic Panel; Status:Active; Requested for:[id number]; Lipase, Serum; Status:Active; Requested for:[id number]; Epigastric pain, Nausea in adult Gastroenterology Referral Evaluation and Treatment Evaluate AND Treat Status: Active Requested for: [id number] Chief Complaint nausea x 2 weeks but [...] Allergies Medication erythromycin Vitals Vital Signs Recorded: [id number] 11:21AM Temperature: 97.3 F Heart Rate: 70 [...] content not included)... Normal [facility] SPIRITUAL CARE COORDINATOR - Office Visiton 03-21 SPIRITUAL CARE COORDINATOR - Office Visit Chief Complaint Patient is [...] Maintenance; ELADIO = N; [facility]; Last Updated By: BlueLithium; 10/25/2019 11:30:52 AM Oxybutynin Chloride 5 MG Oral Tablet; Take 1 tablet daily Requested for: 03Feb2020; Last Rx:[id number] Ordered Rx By: Yan Winslow; Dispense: 90 Days ; #:90 Tablet; Refill: 3;For: Health Maintenance; ELADIO = N; Verified Transmission to [facility] #6167; Last Updated By: BlueLithium; 02/03/2020 11:36:38 AM Pantoprazole Sodium 40 MG Oral Tablet Delayed Release; TAKE 1 TABLET DAILY Requested for: 03Feb2020; Last Rx:[id number] Ordered Rx By: Yan Winslow; Dispense: 90 Days ; #:90 Tablet; Refill: 3;For: Health Maintenance; ELADIO = N; Verified Transmission to [facility] #6167; Last Updated By: BlueLithium; 02/03/2020 11:36:26 AM Levothyroxine Sodium 100 MCG Oral Tablet; TAKE 1 TABLET DAILY Requested for: 03Feb2020; Last Rx:[id number] Ordered Rx By: Yan Winslow; Dispense: 90 Days ; #:90 Tablet; Refill: 3;For: Hypothyroidism, unspecified type; ELADIO = N; Verified Transmission to [facility] #2384; Last Updated By: Wang Wolf; 02/03/2020 11:36:28 AM Olopatadine HCl - 0.1 % Ophthalmic Solution; Therapy: [id number] to Recorded Rx By: BECCA; Dispense: 30 [...] 11/07/2018 8:35:43 AM Vitals Vital Signs Recorded: [id number] 01:13PM Hlqymiziyht83.1 F Pvcgiwcq286 Paaxieidb54 Height5 ft 7.5 in Vozxaq37.8 kg BMI Hhnltbtnba86.72 BSA Calculated (more content not included)... Normal [...] Feb 03 2020 11:39AM EST (Author) Normal [facility] Provider Note - ED v2on 06 Provider Note - ED v2 Provider Note - ED v2: Chart Review: HISTORY OF PRESENTING ILLNESS PATTY is a 49 year old Female and was seen by me at 28-Jan-2020 10:18 for a chief complaint of (Sunburn). Other complaints include: Patient presents for evaluation of sunburn. Patient was on [place] 2 days ago and 3 days ago and now reports sunburn covering entire body. Patient reports focus of the burn over bilateral hips, bilateral lower legs, and bilateral shoulders. Patient reports vesicular formation in these areas. Patient has increased fluid intake and is taking cdps-gsy-zzalfrg medications with little relief. No other complaints.. [...] ADENOIDS/ COMPLETE HYSTRECTOMY Description:RT FOOT RECONSTRUCTION/ D&C SPIRITUAL CARE COORDINATOR: Is : no Is : no REVIEW [...] Updated: 28-Jan-2020 10:57 by Jeff Aden (PAC) [facility] 06-05-2019 Interpreted by: KERWIN MAE06/05/19 16:54MRN: [id number] Name: PATTY GAXIOLA STUDY:CT ABDOMEN AND PELVIS [...] pelvis.Electronically signed by: BLANCA 06/05/19 16:54 Normal [facility] Work Phone: Please click on the link to view the study images Normal [facility] Work Phone: CLOST DIFF. TOXIN, PCRon C. difficile toxin genes SANAM+probe Ql (Stl) Canceled [facility] Work Phone: Comment on above: This assay [...] PROPER TESTING. CLOST DIFF. TOXIN, PCR Canceled [facility] Work Phone: Comment on above: TEST CLOST DIFF. TOX IN, PCR WAS CANCELLED, 06/05/2019 01:14 ONLY PAM-RADHA AND PARA-MARTINA RECEIVED. NEED FRESH STOOL FOR PROPER TESTING. Otheron 06-04-2019 Negative NEGATIVE [facility] Work Phone: Comment on above: SOURCE: STOOL PATHOGEN PCR PANELon 1 Campylobacter sp DNA.diarrheagenic SANAM+probe Ql (Stl) NOT DETECTED See Below [facility] Work Phone: Comment on above: Reference Range: NOT DETECTED E. coli stx1 gene SANAM+probe Ql (Unsp spec) NOT DETECTED See Below [facility] Work Phone: Comment on above: Reference Range: NOT DETECTED E. coli stx2 gene SANAM+probe Ql (Unsp spec) NOT DETECTED See Below [facility] Work Phone: Comment on above: Reference Range: NOT DETECTED Norovirus genogroup I and II RNA SANAM+probe Nom (Stl) NOT DETECTED See Below [facility] Work Phone: Comment on above: Reference Range: NOT DETECTED Rotavirus RNA SANAM+probe Nom (Stl) NOT DETECTED See Below [facility] Work Phone: Comment on above: Reference Range: [...] Ql (Unsp spec) NOT DETECTED See Below [facility] Work Phone: Comment on above: Reference Range: NOT DETECTED Vibrio sp DNA SANAM+probe Nom (Unsp spec) NOT DETECTED See Below [facility] Work Phone: Comment on above: Reference Range: NOT DETECTED Yersinia sp DNA SANAM+probe Nom (Unsp spec) NOT DETECTED See Below [facility] Work Phone: Comment on above: SOURCE: Reference Ra nge: NOT DETECTED STOOL PATHOGEN PCR PANEL NOT DETECTED See Below [facility] Work Phone: Comment on above: Reference Range: NOT DETECTED Complete Blood Count + Diffe musa 06-03-2019 Basophils (Bld) [#/Vol] 0.00 {x10E9/L} See Below [facility] Work Phone: Comment on above: Reference Range: 0.0 0 - 0.10 Basophils/100 WBC (Bld) 0.9 % 0.0 - 2.0 [facility] Work Phone: Eosinophils (Bld) [#/Vol] 0.10 {x10E9/L} See Below [facility] Work Phone: Comment on above: Reference Range: 0.0 0 - 0.70 Eosinophils/100 WBC (Bld) 1.7 % 0.0 - 6.0 [facility] Work Phone: Erythrocyte distribution width (RBC) [Ratio] 13.4 % See Below [facility] Work Phone: Comment on above: Reference Range: 11. 5 - 14.5 Hematocrit (Bld) [Volume fraction] 44.9 % See Below [facility] Work Phone: Comment on above: Reference Range: 36. 0 - 46.0 Hemoglobin (Bld) [Mass/Vol] 14.9 g/dL See Below [facility] Work Phone: Comment on above: Reference Range: 12. 0 - 16.0 Lymphocytes (Bld) [#/Vol] 2.00 {x10E9/L} See Below [facility] Work Phone: Comment on above: Reference Range: 1.2 0 - 4.80 Lymphocytes/100 WBC (Bld) 37.8 % See Below [facility] Work Phone: Comment on above: Reference Range: 13. 0 - 44.0 MCHC (RBC) [Mass/Vol] 33.1 g/dL See Below [facility] Work Phone: Comment on above: Reference Range: 32. 0 - 36.0 MCV (RBC) [Entitic vol] 96 fL 80 - 100 [facility] Work Phone: Monocytes (Bld) [#/Vol] 0.30 {x10E9/L} See Below [facility] Work Phone: Comment on above: Reference Range: 0.1 0 - 1.00 Monocytes/100 WBC (Bld) 5.9 % 2.0 - 10.0 [facility] Work Phone: Neutrophils (Bld) [#/Vol] 2.80 {x10E9/L} See Below [facility] Work Phone: Comment on above: Reference Range: 1.2 0 - 7.70 Neutrophils/100 WBC (Bld) 53.7 % See Below [facility] Work Phone: Comment on above: Reference Range: 40. 0 - 80.0 Platelets (Bld) [#/Vol] 252 {x10E9/L} 150 - 450 [facility] Work Phone: RBC (Bld) [#/Vol] 4.69 {x10E12/L} See Below [facility] Work Phone: Comment on above: Reference Range: 4.0 0 - 5.20 WBC (Bld) [#/Vol] 5.3 {x10E9/L} 4.4 - 11.3 [facility] Work Phone: Lipase, Serumon 06-03-2019 Lipase [Catalytic activity/Vol] 15 U/L 9 - 82 [facility] Work Phone: Comment on above: Venipuncture immedia tely after or during the administration of Metamizole may lead to falsely low results. Testing should be performed immediately prior to Metamizole dosing. Metabolic Panelon 06-03-2019 ALP [Catalytic activity/Vol] 75 U/L 33 - 110 [facility] Work Phone: Anion gap [Moles/Vol] 10 mmol/L 10 - 20 [facility] Work Phone: Bilirubin [Mass/Vol] 0.6 mg/dL 0.0 - 1.2 [facility] Work Phone: Calcium [Mass/Vol] 9.8 mg/dL 8.6 - 10.3 [facility] Work Phone: Chloride [Moles/Vol] 106 mmol/L 98 - 107 [facility] Work Phone: CO2 [Moles/Vol] 30 mmol/L 21 - 32 -[facility] Work Phone: Creatinine [Mass/Vol] 0.61 mg/dL See Below [facility] Work Phone: Comment on above: Reference Range: 0.5 0 - 1.05 Glucose [Mass/Vol] 80 mg/dL 74 - 99 [facility] Work Phone: Potassium [Moles/Vol] 4.1 mmol/L 3.5 - 5.3 [facility] Work Phone: Protein [Mass/Vol] 7.2 g/dL 6.4 - 8.2 [facility] Work Phone: Sodium [Moles/Vol] 142 mmol/L 136 - 145 -[facility] Work Phone: Urea nitrogen [Mass/Vol] 13 mg/dL 6 - 23 -[facility] Work Phone: Otheron 06-03-2019 Albumin BCP dye [Mass/Vol] 4.6 g/dL 3.4 - 5.0 [facility] Work Phone: ALT With P-5'-P [Catalytic activity/Vol] 13 U/L 7 - 45 -[facility] Work Phone: Comment on above: Patients treated wit h Sulfasalazine may generate falsely decreased results for ALT. AST With P-5'-P [Catalytic activity/Vol] 17 U/L 9 - 39 [facility] Work Phone: >60 >60 [facility] Work Phone: Comment on above: CALCULATIONS OF VAUGHN MATED GFR ARE PERFORMED USING THE MDRD STUDY EQUATION FOR THE IDMS-TRACEABLE CREATININE METHODS. CLIN CHEM 2007;53:766-72 IGP W/hpv Rfx [id number] 01-02 Diagnosis: See Ref Lab Report Normal [facility] Comment on above: Order Comment: Thin Prep. Hysterectomy Performed By: #### 2 [id number] #### [facility] [place] [id number] [place] Mamm Screen w/CAD if perf ormed bilaton 01-01-2019 [place] Mamm Screen w/CAD if performed bilat Exam Date/Time: 01/01/2019 14:52 EDT Reason for Exam: SCREENING;Screening Report STUDY: Digital mammography screening; 01/01/2019 2:52 pm ACCESSION NUMBER(S): [id number] ORDERING CLINICIAN: Chance Barnes INDICATION: Screening. COMPARISON: [...] Category 1-Negative Recommendation: Normal interval follow-up Normal [facility] [place] [facility] 12-25-2018 [facility] Date of Procedure: 12/25/2018 Pathologist: [...] Pap test collection. Electronically Signed Out By [facility], Cytology//MXG By the signature on this report, [...] PAP Vaginal Reflex - Ascus only Normal [facility] MRI Brain w/ + w/o Contrasto n 11-19-2018 MRI Brain w/ + w/o Contrast Exam Date/Time: 11/19/2018 14:18 EDT Reason for Exam: DEMYELINATING DISEASE Report STUDY: MRI Brain w/ + w/o Contrast; 11/19/2018 2:18 pm INDICATION: DEMYELINATING DISEASE. COMPARISON: None. ACCESSION NUMBER(S): [id number] ORDERING CLINICIAN: Ba Callahan TECHNIQUE: Axial T2, [...] by: Freya Sarmiento DO Technologist: RADHA Normal [facility] MRI Spine Cervical w/ + w/o Contraston 11-19-2018 MRI Spine Cervical w/ + w/o Contrast Exam Date/Time: 11/19/2018 14:17 EDT Reason for Exam: DEMYELINATING DISEASE Report STUDY: MRI Spine Cervical w/ + w/o Contrast; 11/19/2018 2:17 pm INDICATION: DEMYELINATING DISEASE. COMPARISON: None. ACCESSION NUMBER(S): [id number] ORDERING CLINICIAN: Ba Callahan TECHNIQUE: Sagittal T1, [...] by: Freya Sarmiento DO Technologist: RADHA Normal [facility] Lab Miscellaneouson 11-16-19 19 Status See Ref Lab Report Normal [facility] Comment on above: Performed By: #### 2 [id number] #### [facility] [address] [place] [address] Status See Ref Lab Report Normal [facility] Comment on above: Performed By: #### 2 [id number] #### [facility] [address] [place] [address] U Prot Electroon 11-12-2018 M-Feng Percent Not Observed Normal Not Observed [facility] Comment on above: Performed By: #### 2 [id number] #### [facility] [address] [place] [address] Protein mass conc Comment Normal [facility] Comment on above: Result Comment: Protein electrophoresis scan will follow via computer, mail, or acura sales consultant delivery. Performed At: [facility] [id number] Kasandra Quinn PhD Ph:[phone] Performed By: #### 2 [id number] #### [facility] [address] [place] [address] Protein mass conc 14.5 mg/dL Normal Not Estab. [facility] Comment on above: Performed By: #### 2 [id number] #### [facility] [address] [place] [address] U Albumin 24.4 % Normal [facility] Comment on above: Performed By: #### 2 [id number] #### [facility] [address] [place] [address] U Alpha 1 Glob 3.3 % Normal [facility] Comment on above: Performed By: #### 2 [id number] #### [facility] [address] [place] [address] U Alpha 2 Glob 21.3 % Normal [facility] Comment on above: Performed By: #### 2 [id number] #### [facility] [address] [place] [address] U Beta Glob 34.7 % Normal [facility] Comment on above: Performed By: #### 2 [id number] #### [facility] [address] [place] [address] U Gamma Glob 16.2 % Normal [facility] Comment on above: Performed By: #### 2 [id number] #### [facility] [address] [place] [address] Lab Miscellaneouson 11-09-19 19 Status See Ref Lab Report Normal [facility] Comment on above: Performed By: #### 2 [id number] #### [facility] [address] [place] [address] Test Name urine heavy met Normal [facility] Comment on above: Performed By: #### 2 [id number] #### [facility] [address] [place] [address] SPEon 11-08-2018 Albumin mass conc 4.0 g/dL Normal 2.9-4.4 [facility] Comment on above: Performed By: #### 2 [id number] #### [facility] [address] [place] [address] Albumin/Globulin mass ratio 1.4 {ratio} Normal 0.7-1.7 [facility] Comment on above: Performed By: #### 2 [id number] #### [facility] [address] [place] [address] Alpha 1 Glob 0.2 gm/dL Normal 0.0-0.4 [facility] Comment on above: Performed By: #### 2 [id number] #### [facility] [address] [place] [address] Alpha 2 Glob 0.7 gm/dL Normal 0.4-1.0 [facility] Comment on above: Performed By: #### 2 [id number] #### [facility] [address] [place] [address] Beta Glob 1.0 gm/dL Normal 0.7-1.3 [facility] Comment on above: Performed By: #### 2 [id number] #### [facility] [address] [place] [address] Gamma Glob 0.9 gm/dL Normal 0.4-1.8 [facility] Comment on above: Performed By: #### 2 702201 #### [facility] [address] [place] [address] Globulin mass conc (S) 2.8 g/dL Normal 2.2-3.9 [facility] Comment on above: Performed By: #### 2 109796 #### [facility] [address] [place] [address] M-Feng Not Observed Normal Not Observed [facility] Comment on above: Performed By: #### 2 [id number] #### [facility] [address] [place] [address] Protein mass conc Comment Normal [facility] Comment on above: Result Comment: The SPE pattern appears essentially unremarkable. Evidence of monoclonal protein is not apparent. Performed At: [facility] [employer] [id number] Kasandra Quinn PhD Ph:[phone] Performed By: #### 2 [id number] #### [facility] [address] [place] [address] Protein mass conc 6.8 g/dL Normal 6.0-8.5 [facility] Comment on above: Performed By: #### 2 [id number] #### [facility] [employer] [address] [place] [address] Protein mass conc Comment Normal [facility] Comment on above: Result Comment: Protein electrophoresis scan will follow via computer, mail, or acura sales consultant delivery. Performed At: [id number] [place], [place] [id number] Kasandra Quinn PhD Ph:[phone] Performed By: #### 2 [id number] #### [facility] Lozano[facility] [place] [id number] CRPon 11-07-2018 CRP mass conc 0.13 mg/dL Normal 0.00-1.00 [facility] Comment on above: Performed By: #### 2 [id number] #### [facility] [employer] [place] [address] Folateon 11-07-2018 Folate Lvl 19.70 ng/mL Normal >=5.00 [facility] Comment on above: Result Comment: The WHO Technical Consultation on folate and vitamin B12 deficiencies has determined that deficient folate concentrations are considered to be less than 4ng/ml. Performed By: #### 2 [id number] #### [facility] [place] [address] [id number] 11-07-2018 Hemoglobin A1c/Hemoglobin.to peter mass fraction (Bld) 5.2 % Normal 4.0-6.3 [facility] Comment on above: Performed By: #### 2 [id number] #### [facility] [employer] [address] [place] [address] Lab Miscellaneouson 11-08-19 19 Test Name paraneoplastic Normal [facility] Comment on above: Performed By: #### 2 [id number] #### [facility] [employer] [address] [place] [address] Test Name lyme rfx Normal [facility] Comment on above: Performed By: #### 2 [id number] #### [facility] LozanoGoombal [facility] [place] [id number] Sed Rate Automatedon 019 Sed Rate Automated 12 mm/hr Normal [facility] Comment on above: Result Comment: AGE- SPECIFIC REFERENCE RANGES FOR SEDIMENTATION RATE AUTOMATED REFERENCE RANGE - MM/HR AGE MEN WOMEN 0-2 0-2 - PUBERTY 3-13 3-13 PUBERTY - 50 YRS 0-15 0-20 > 50 YRS 0-20 0-30 Performed By: #### 2 [id number] #### [facility]LE MartaGoombal [facility] [place] [id number] Vit B12on 11-07-2018 Cobalamin (Vitamin B12) mass conc 995 pg/mL High 180-914 [facility] Comment on above: Performed By: #### 2 [id number] #### [facility] [employer] [address] [place] [address] Vitamin D 25 Hydroxyon 11-07 Vitamin D 25 Hydroxy 17.0 ng/mL Low 30.0-100.0 [facility] Comment on above: Performed By: #### 2 [id number] #### [facility] [employer] [address] [place] [address] Auto Diffon 09-25-2018 Basophils #/vol (Bld) 0.0 E3/mcL Normal 0.0-0.2 [facility] Comment on above: Order Comment: Order Added by Discern Expert. Performed By: #### 2 [id number] #### LAVELLE LozanoHemo [address] [place] [address] Basophils/100 WBC (Bld) 1.1 % Normal 0.0-2.0 [facility] Comment on above: Order Comment: Order Added by Discern Expert. Performed By: #### 2 [id number] #### LAVELLE LozanoHemo [address] [place] [address] Eos Absolute 0.1 E3/mcL Normal 0.0-0.7 [facility] Comment on above: Order Comment: Order Added by Discern Expert. Performed By: #### 2 [id number] #### LAVELLE LozanoHemo [address] [place] [address] Eosinophils/100 WBC (Bld) 3.0 % Normal 0.0-11.0 [facility] Comment on above: Order Comment: Order Added by Discern Expert. Performed By: #### 2 [id number] #### [facility]LE LozanoHemo [address] [place] [address] Lymphocytes #/vol (Bld) 1.7 E3/mcL Normal 1.2-3.4 [facility] Comment on above: Order Comment: Order Added by Discern Expert. Performed By: #### 2 662178 #### LAVELLE LozanoHemo [address] [place] [address] Lymphocytes/100 WBC (Bld) 40.9 % Normal 20.0-55.0 [facility] Comment on above: Order Comment: Order Added by Discern Expert. Performed By: #### 2 815922 #### [facility] RemHemo [address] [place] [address] Meade Absolute 0.3 E3/mcL Normal 0.0-0.7 [facility] Comment on above: Order Comment: Order Added by Discern Expert. Performed By: #### 2 834835 #### [facility]LE LozanoHemo [address] [place] [address] Monocytes/100 WBC (Bld) 7.7 % Normal 0.0-10.0 [facility] Comment on above: Order Comment: Order Added by Discern Expert. Performed By: #### 2 [id number] #### [facility] RemHemo [address] [place] [address] Neutro Absolute 2.0 E3/mcL Normal 1.4-6.5 [facility] Comment on above: Order Comment: Order Added by Discern Expert. Performed By: #### 2 [id number] #### [facility] RemHemo [address] [place] [address] Neutro Auto 47.3 % Normal 37.0-75.0 [facility] Comment on above: Order Comment: Order Added by Discern Expert. Performed By: #### 2 [id number] #### [facility] RemHemo [address] [place] [address] CBC w/ Auto Diffon 9 Erythrocyte distribution width Ratio (RBC) 13.6 % Normal 11.5-14.5 [facility] Comment on above: Performed By: #### 2 334116 #### [facility] RemHemo [address] [place] [address] Hematocrit Volume Fraction (Bld) 45.2 % Normal 36.0-48.0 [facility] Comment on above: Performed By: #### 2 [id number] #### [facility]LE RemHemo [address] [place] [address] Hemoglobin mass conc (Bld) 14.7 g/dL Normal 12.0-16.0 [facility] Comment on above: Performed By: #### 2 917082 #### LAV[facility]LE RemHemo [address] [place] [address] MCH Entitic mass (RBC) 31.1 pg High 27.0-31.0 [facility] Comment on above: Performed By: #### 2 [id number] #### [facility]LE RemHemo [address] [place] [address] MCHC mass conc (RBC) 32.5 g/dL Low 33.0-37.0 [facility] Comment on above: Performed By: #### 2 630074 #### [facility]LE RemHemo [address] [place] [address] MCV Entitic volume (RBC) 95.5 fL Normal 78.0-100.0 [facility] Comment on above: Performed By: #### 2 [id number] #### [facility]LE RemHemo [address] [place] [address] Platelet mean volume Entitic volume (Bld) 8.7 fL Normal 7.4-11.0 [facility] Comment on above: Performed By: #### 2 [id number] #### [facility] RemHemo [address] [place] [address] Platelets #/vol (Bld) 236 E3/mcL Normal 130-400 [facility] Comment on above: Performed By: #### 2 [id number] #### [facility] RemHemo [address] [place] [address] RBC #/vol (Bld) 4.73 E6/mcL Normal 3.90-5.40 [facility] Comment on above: Performed By: #### 2 954883 #### L[facility]LE RemHemo [address] [place] [address] WBC #/vol (Bld) 4.3 E3/mcL Normal 3.6-11.0 [facility] Comment on above: Performed By: #### 2 [id number] #### L[facility]LE RemHemo [address] [place] [address] CMPon 09-25-2018 Albumin mass conc 4.5 g/dL Normal 3.4-5.0 [facility] Comment on above: Performed By: #### 2 [id number] #### [facility] [employer] [address] [place] [address] Albumin/Globulin mass ratio 1.8 {ratio} Normal 1.1-1.9 [facility] Comment on above: Performed By: #### 2 608825 #### [facility] [employer] [address] [place] [address] Alk Phos 77 Int._Unit/L Normal 33-110 [facility] Comment on above: Performed By: #### 2 [id number] #### [facility] [employer] [address] [place] [address] ALT enzyme act/vol 14 Int._Unit/L Normal 7-45 [facility] Comment on above: Performed By: #### 2 938335 #### [facility] [employer] [address] [place] [address] Anion gap molar conc 9 mmol/L Low 10-20 [facility] Comment on above: Performed By: #### 2 [id number] #### [facility] [employer] [address] [place] [address] AST enzyme act/vol 19 Int._Unit/L Normal 9-39 [facility] Comment on above: Performed By: #### 2 068064 #### [facility] [employer] [address] [place] [address] Bili Total 0.49 mg/dL Normal 0.00-1.20 [facility] Comment on above: Performed By: #### 2 [id number] #### [facility] [employer] [address] [place] [address] Calcium mass conc 9.8 mg/dL Normal 8.6-10.3 [facility] Comment on above: Performed By: #### 2 [id number] #### [facility] [employer] [address] [place] [address] Chloride molar conc 105 mmol/L Normal 98-107 [facility] Comment on above: Performed By: #### 2 [id number] #### [facility] [employer] [address] [place] [address] CO2 molar conc 30.0 mmol/L Normal 21.0-32.0 [facility] Comment on above: Performed By: #### 2 308036 #### [facility] [employer] [address] [place] [address] Creatinine mass conc 0.6 mg/dL Normal 0.5-1.1 [facility] Comment on above: Performed By: #### 2 513002 #### [facility] [employer] [address] [place] [address] Globulin mass conc (S) 3.0 g/dL Normal 2.0-4.0 [facility] Comment on above: Performed By: #### 2 279625 #### [facility] [employer] [address] [place] [address] Glucose mass conc 86 mg/dL Normal 70-99 [facility] Comment on above: Performed By: #### 2 [id number] #### [facility] [employer] [address] [place] [address] Potassium molar conc 4.2 mmol/L Normal 3.5-5.3 [facility] Comment on above: Performed By: #### 2 878772 #### [facility] [employer] [address] [place] [address] Protein mass conc 7.0 g/dL Normal 6.4-8.2 [facility] Comment on above: Performed By: #### 2 269137 #### [facility] [employer] [address] [place], [place] [address] Sodium molar conc 140 mmol/L Normal 136-145 [facility] Comment on above: Performed By: #### 2 307204 #### [facility] [employer] [address] [place] [address] Urea nitrogen mass conc 13 mg/dL Normal 6-23 [facility] Comment on above: Performed By: #### 2 [id number] #### [facility] [employer] [address] [place] [address] Urea nitrogen/Creatini ne mass ratio 21.7 ratio Normal 5.4-30.0 [facility] Comment on above: Performed By: #### 2 483625 #### [facility] [employer] [address] [place] [address] TSHon 09-25-2018 Thyrotropin Qn 0.02 mcIU/mL Low 0.30-5.60 [facility] Comment on above: Performed By: #### 2 389300 #### [facility] [employer] [address] [place] [address] eGFRon 09-25-2018 GFR/1.73 sq M predicted among non-blacks MDRD vol rate/area (S/P/Bld) mL/min/{1.73_m2} Normal [facility] Comment on above: Order Comment: Order added by Discern Expert. Performed By: #### 1 [id number] #### [facility] [employer] [address] [place] [address] Vit B12on 08-07-2018 Cobalamin (Vitamin B12) mass conc 784 pg/mL Normal 180-914 [facility] Comment on above: Performed By: #### 2 [id number] #### [facility] [employer] [address] [place] [address] TSHon 05-02-2018 Thyrotropin Qn 0.06 mIU/m Low 0.30-5.60 [facility] Comment on above: Performed By: #### 2 [id number] #### [facility] [employer] [address] [place] [address] Vit B12on 05-02-2018 Cobalamin (Vitamin B12) mass conc 240 pg/mL Normal 180-914 [facility] Comment on above: Performed By: #### 2 [id number] #### [facility] [employer] [address] [place] [address] C Urineon 02-07-2018 C Urine Final Report: Light growth of Mixed skin contaminants in Moderate Normal skin michael isolated Normal [facility] Comment on above: Performed By: #### 2 [id number] #### [facility]LE Microbiology Subsection [address] [place] [address] Pathology (EM)on 03-16-2017 Pathology (EM) FINAL GYNECOLOGIC CY TOLOGY [id number] ADEQUACYUnsatisfactory for Evaluation. Specimen is processed and examined, butunsatisfactory for evaluation of epithelial abnormality due to:Scant cellularity.GENERAL CATEGORIZATIONUnsatisfactory for evaluation.COMMENTHigh Risk HPV was ordered and performed at [facility] Laboratory. Results arereported below in this [...] E6/E7 viral messenger RNA (mRNA) high-risk HPV [id number],18,31,33,35,39,45, 51,55,58,59,66, and 68 which are associated with cervicalcancer and its precursor lesions. However, cross-reactions with othergenotypes may occur. Results should be correlated with cytologic andhistologic findings. Sensitivity may be affected by cellularity of specimen.CLINICAL HISTORYComment: LMP: No UterusHysterectomySPECIMEN(A) SCREENING VAGINAL LIQUID-BASED PAP SMEARPerformed at [facility], [address] [place], [place] [address]Screened by: Signed Out by: DAVON CASTILLO Podiatric Medicine Doctor Reported: 03/20/2017 Normal [facility] Comment on above: Performed By: #### G YN ####[facility] [address] [place] [address] Vital Signs Date Time Vital Sign Value Performing Clinician Facility 07-17-2024 09:38-0500 Body height 171.5 cm Kim Burnette MD Work Phone: [facility] 07-17-2024 09:38-0500 Body mass index (BMI) [Ratio] 23.15 kg/m2 Kim Burnette MD Work Phone: [facility] 07-17-2024 09:38-0500 Body weight 68.04 kg Kim Burnette MD Work Phone: [facility] 07-17-2024 09:38-0500 Diastolic blood pressure 63 mm[Hg] Kim Burnette MD Work Phone: [facility] 07-17-2024 09:38-0500 Systolic blood pressure 107 mm[Hg] Kim Burnette MD Work Phone: [facility] 06-19-2024 10:41-0400 Body height 171.5 cm Kim Burnette MD Work Phone: [facility] 06-19-2024 10:41-0400 Body mass index (BMI) [Ratio] 22.38 kg/m2 Kim Burnette MD Work Phone: [facility] 06-19-2024 10:41-0400 Body weight 65.77 kg Kim Burnette MD Work Phone: [facility] 06-19-2024 10:41-0400 Diastolic blood pressure 76 mm[Hg] Kim Burnette MD Work Phone: [facility] 06-19-2024 10:41-0400 Systolic blood pressure 109 mm[Hg] Kim Burnetet MD Work Phone: [facility] 05-23-2024 08:08-0400 Body height 171.45 cm [facility] 05-23-2024 08:08-0400 Body mass index (BMI) [Ratio] 22.1 kg/m2 [facility] 05-23-2024 08:08-0400 Body weight 65.03 kg [facility] 05-23-2024 08:08-0400 Diastolic blood pressure 60 mm[Hg] [facility] 05-23-2024 08:08-0400 Heart rate 71 /min [facility] 05-23-2024 08:08-0400 Respiratory rate 16 /min [facility] 05-23-2024 08:08-0400 SaO2% (BldA) [Mass fraction] 96 % [facility] 05-23-2024 08:08-0400 Systolic blood pressure 102 mm[Hg] [facility] 05-09-2024 10:27-0400 Blood Pressure Location FREYA JOHNSON [facility] 05-09-2024 10:27-0400 Diastolic blood pressure 52 mm[Hg] FREYA JOHNSON [facility] 05-09-2024 10:27-0400 Heart rate 74 /min FREYA JOHNSON [facility] 05-09-2024 10:27-0400 Systolic blood pressure 101 mm[Hg] FREYA JOHNSON [facility] 04-10-2024 09:17-0400 Body height 171.45 cm [facility] 04-10-2024 09:17-0400 Body mass index (BMI) [Ratio] 23.6 kg/m2 [facility] 04-10-2024 09:17-0400 Body weight 69.39 kg [facility] 04-10-2024 09:17-0400 Diastolic blood pressure 71 mm[Hg] [facility] 04-10-2024 09:17-0400 Heart rate 73 /min [facility] 04-10-2024 09:17-0400 Systolic blood pressure 104 mm[Hg] [facility] 07-24-2023 14:45-0500 Body height 171.45 cm Freya Ponce Other [facility] Other 07-24-2023 14:45-0500 Body mass index (BMI) [Ratio] 22.53 kg/m2 Freya Ponce Other [employer] Other 07-24-2023 14:45-0500 Body weight 66.23 kg Freya Ponce Other [employer] Other 07-24-2023 14:45-0500 Diastolic blood pressure 62 mm[Hg] Freya Ponce Other [employer] Other 07-24-2023 14:45-0500 SaO2% (BldA) [Mass fraction] 98 % Freya Ponce Other [employer] Other 07-24-2023 14:45-0500 Systolic blood pressure 104 mm[Hg] Freya Ponce Other [employer] Other 06-30-2023 09:00-0500 Body height 171.45 cm Freya Kris Other [employer] Other 06-30-2023 09:00-0500 Body mass index (BMI) [Ratio] 22.68 kg/m2 Freya Kris Other [employer] Other 06-30-2023 09:00-0500 Body weight 66.68 kg Freya Kris Other [employer] Other 06-30-2023 09:00-0500 Diastolic blood pressure 64 mm[Hg] Freya Kris Other [employer] Other 06-30-2023 09:00-0500 SaO2% (BldA) [Mass fraction] 97 % Freya Kris Other [employer] Other 06-30-2023 09:00-0500 Systolic blood pressure 102 mm[Hg] Freya Kris Other [employer] Other 05-10-2023 13:00-0400 Body height 171.45 cm Imad Asaad Other [employer] Other 05-10-2023 13:00-0400 Body mass index (BMI) [Ratio] 23.07 kg/m2 Imad Asaad Other [employer] Other 05-10-2023 13:00-0400 Body weight 67.81 kg Imad Asaad Other [employer] Other 05-10-2023 13:00-0400 Diastolic blood pressure 83 mm[Hg] Imad Asaad Other [facility] [employer] Other 05-10-2023 13:00-0400 Systolic blood pressure 130 mm[Hg] Imad Asaad Other [facility] [employer] Other 04-26-2023 13:34-0400 Blood Pressure Location FREYA ALEX [facility] 04-26-2023 13:34-0400 Diastolic blood pressure 76 mm[Hg] FREYA ALEX [facility] 04-26-2023 13:34-0400 Heart rate 76 /min FREYA ALEX [facility] 04-26-2023 13:34-0400 Respiratory rate 16 /min FREYA ALEX [facility] 04-26-2023 13:34-0400 Systolic blood pressure 112 mm[Hg] FREYA ALEX [facility] 09-09-2022 09:30-0500 Body height 171.45 cm Xiomara Aaron Other [facility] [employer] Other 09-09-2022 09:30-0500 Body mass index (BMI) [Ratio] 23.61 kg/m2 Xiomara Aaron Other [employer] Other 09-09-2022 09:30-0500 Body weight 69.4 kg Xiomara Aaron Other [employer] Other 09-09-2022 09:30-0500 Diastolic blood pressure 72 mm[Hg] Xiomara Aaron Other [employer] Other 09-09-2022 09:30-0500 SaO2% (BldA) [Mass fraction] 98 % Xiomara Aaron Other [employer] Other 09-09-2022 09:30-0500 Systolic blood pressure 126 mm[Hg] Xiomara Aaron Other [employer] Other 12-08-2021 09:21-0400 Blood Pressure Location FREYA JOHNSON [facility] [employer] 12-08-2021 09:21-0400 Diastolic blood pressure 77 mm[Hg] [facility] 12-08-2021 09:21-0400 Heart rate 72 /min [facility] 12-08-2021 09:21-0400 Systolic blood pressure 111 mm[Hg] [facility] 11-01-2021 11:45-0400 Body height 171.45 cm Shan Kerr Other [employer] Other 11-01-2021 11:45-0400 Body mass index (BMI) [Ratio] 22.53 kg/m2 Shan Kerr Other [employer] Other 11-01-2021 11:45-0400 Body weight 66.23 kg Shan Kerr Other [employer] Other 11-01-2021 11:45-0400 Diastolic blood pressure 69 mm[Hg] Shan Kerr Other [employer] Other 11-01-2021 11:45-0400 Systolic blood pressure 107 mm[Hg] Shan Kerr Other [employer] Other 10-17-2021 14:05-0500 Body height 171.45 cm Blaire Collier Other [employer] Other 10-17-2021 14:05-0500 Body mass index (BMI) [Ratio] 23.45 kg/m2 Blaire Collier Other [employer] Other 10-17-2021 14:05-0500 Body temperature 97.8 [degF] Blaire Collier Other [employer] Other 10-17-2021 14:05-0500 Body weight 68.95 kg Blaire Collier Other [employer] Other 10-17-2021 14:05-0500 Diastolic blood pressure 63 mm[Hg] Blaire Collier Other [employer] Other 10-17-2021 14:05-0500 Respiratory rate 18 /min Blaire Collier Other [employer] Other 10-17-2021 14:05-0500 SaO2% (BldA) [Mass fraction] 99 % Blaire Collier Other [employer] Other 10-17-2021 14:05-0500 Systolic blood pressure 99 mm[Hg] Blaire Collier Other [employer] Other 06-11-2019 12:08-0400 BMI (Body Mass Index) [...] Mass Index) 22.49 kg/m2 Yan Winslow [facility] Work Phone: 06-03-2019 12:41-0400 Body weight 65 kg [facility] Work Phone: 06-03-2019 12:41-0400 BP Diastolic 68 mm[Hg] Yan Winslow -[facility] Work Phone: Comment on above: Location: [place]; 06-03-2019 12:41-0400 BP Systolic 110 mm[Hg] [facility] Work [facility]: Comment on above: Location: [place]; 06-03-2019 12:41-0400 BSA (Body Surface Area) 1.75 m2 Yan Winslow [facility] Work Phone: 06-03-2019 12:41-0400 Height 170 cm Yan Winslow [facility] Work Phone: 06-03-2019 12:41-0400 Pulse (Heart Rate) 77 /min Yan Winslow [facility] Work Phone: Encounters Encounter Date Encounter Type Care Provider Facility Start: 08-05-2024 End: 08-05-2024 Clinisync Result Encounter Kim Burnette MD Work Phone: [facility] External Department Unsolicited Start: 08-05-2024 End: 08-05-2024 Clinisync Result Encounter Kim Burnette MD Work Phone: [facility] External [facility] Unsolicited Start: 07-17-2024 End: 07-17-2024 Bamboo sandra Burnette MD Work Phone: [facility] Start: 07-17-2024 End: 07-17-2024 Bamboo sandra Burnette MD Work Phone: [facility] Start: 07-17-2024 End: 07-17-2024 Office outpatient visit 25 minutes Kim Burnette MD Work Phone: [facility] Comment on above: 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) Start: 07-17-2024 End: 07-17-2024 ambulatory KIM BURNETTE Not Available Start: 06-19-2024 End: 06-19-2024 Bamboo sandra Burnette MD Work Phone: [facility] Start: 06-19-2024 End: 06-19-2024 Julieta Burnette MD Work Phone: [facility] Start: 06-19-2024 End: 06-19-2024 Office outpatient new 45 minutes Kim Burnette MD Work Phone: [facility] Comment on above: Chronic sinusitis, u nspecified location (Primary Dx); Allergic rhinitis, unspecified seasonality, unspecified trigger Start: 06-19-2024 End: 06-19-2024 ambulatory KIM BURNETTE Not Available Start: 05-23-2024 End: 05-23-2024 ambulatory [facility] Work Phone: Start: 05-23-2024 End: 05-23-2024 Patient encounter procedure [facility] Physician [facility] Work Phone: Start: 05-09-2024 End: 05-09-2024 ambulatory FREDY JOHNSON Facility:[facility] Start: 05-09-2024 End: 05-09-2024 Patient encounter procedure FREYA JOHNSON [facility] Start: 04-10-2024 End: 04-10-2024 ambulatory [facility] Work Phone: Start: 04-10-2024 End: 04-10-2024 Patient encounter procedure [facility] Work Phone: Start: 2024 End: 2024 ambulatory JOBY MILLER Not Available Start: 12-25-2023 End: 12-26-2023 ambulatory [facility] Start: 11-08-2023 End: 11-08-2023 ambulatory ANA INGRAM Not Available Start: 08-07-2023 End: 08-07-2023 ambulatory Xiomara Aaron Other [employer] Other Start: 08-07-2023 Telephone encounter Xiomara Aaron [facility] Start: 07-24-2023 End: 07-24-2023 ambulatory Freya Ponce Other [employer] Other Start: 07-24-2023 Office outpatient vi sit 15 minutes Freya Ponce [facility] Start: 07-05-2023 End: 07-05-2023 ambulatory Freya Ponce Other [employer] Other Start: 07-05-2023 Telephone encounter Freya hemphill [facility] Start: 06-30-2023 End: 06-30-2023 ambulatory Freya Ponce Other [facility] [employer] Other Start: 06-30-2023 Office outpatient vi sit 15 minutes Freya Ponce [facility] Start: 05-10-2023 End: 05-10-2023 ambulatory Imad Asaad Other [employer] Other Start: 05-10-2023 Office outpatient ne w 45 minutes Imad Asaad [facility] Start: 04-26-2023 End: 04-26-2023 Patient encounter procedure FREYA JOHNSON [facility] Start: 03-24-2023 End: 03-24-2023 ambulatory Imad Asaad Other [employer] Other Start: 03-24-2023 Telephone encounter Imad Asaad [facility] Start: 03-16-2023 End: 03-16-2023 ambulatory Xiomara Aaron Facility:[facility] Start: 01-30-2023 End: 01-30-2023 ambulatory Imad Asaad Other [employer] Other Start: 01-30-2023 Telephone encounter Imad Asaad [facility] Start: 01-18-2023 ambulatory IMAD ASAAD Facility:[facility] 1 Start: 01-09-2023 End: 01-10-2023 ambulatory IMAD ASAAD Facility:[facility] Start: 11-01-2022 End: 11-01-[address] BRIJESH KEATING . Facility:[facility] Start: 09-09-2022 End: 09-09-2022 ambulatory Xiomara Aaron Other [employer] Other Start: 09-09-2022 Office outpatient vi sit 15 minutes Xiomara MOON [facility] Start: 07-23-2022 End: 07-24-[address] XIOMARA AARON Facility: Start: 07-21-2022 Encounter for cervic al smear to confirm findings of recent normal smear following initial abnormal smear Imad Asaad Other [employer] Other Start: 07-21-2022 Gynecological examination normal Imad Asaad Other [employer] Other Start: 07-21-2022 History of abnormal cervical Papanicolaou smear Imad Asaad Other [employer] Other Start: 12-16-2021 End: 12-16-2021 ambulatory Shan Kerr Other [employer] Other Start: 12-16-2021 Telephone encounter Shan Kerr [facility] Start: 12-14-2021 End: 12-14-2021 ambulatory Shan Kerr Other [employer] Other Start: 12-14-2021 Telephone encounter Shan Kerr [facility] Start: 12-08-2021 End: 12-08-2021 Patient encounter procedure FREYA JOHNSON [facility] Start: 11-19-2021 End: 11-19-2021 ambulatory Shan Kerr Other [employer] Other Start: 11-19-2021 Telephone encounter Shan Kerr [facility] Start: 11-01-2021 End: 11-01-2021 ambulatory Shan Kerr Other [employer] Other Start: 11-01-2021 Office outpatient vi sit 25 minutes Shan Kerr [facility] Start: 10-20-2021 End: 10-20-2021 ambulatory Blaire Collier Other [employer] Other Start: 10-20-2021 Telephone encounter Blaire Collier [facility] [address] Start: 10-17-2021 End: 10-17-2021 ambulatory Blaire Collier Other [employer] Other Start: 10-17-2021 Office outpatient vi sit 15 minutes Blaire Collier [facility] [place] Start: 01-26-2021 Rx Change Melvin Roldan DO Work Phone: [facility] [address] Work Phone: Start: 01-25-2021 AUDIT Chance Lauren Work Phone: [facility] [address] Work Phone: Start: 05-19-2020 Patient encounter procedure Fely Fried [facility] [address] Work Phone: Start: 05-06-2020 Patient encounter procedure Fely Fried [facility] [address] Work Phone: Start: 04-02-2020 Patient encounter procedure Fely Fried [facility] [address] Work Phone: Start: 02-03-2020 Patient encounter procedure Fely Fried [facility] [address] Work Phone: Start: 10-25-2019 Patient encounter procedure Felyvanesa Monroy [facility] [address] Work Phone: Start: 06-11-2019 Patient encounter procedure Saba Alice [facility] Work Phone: Start: 06-03-2019 Patient encounter procedure Yan Winslow [facility] Work Phone: Start: 05-29-2019 Patient encounter procedure Yan Winslow [facility] Work Phone: Start: 05-29-2019 Telemedicine consultation with patient Yan Winslow [facility] Work Phone: Start: 12-05-2018 Patient encounter procedure Yan Winslow [facility] Work Phone: Start: 11-27-2018 Patient encounter procedure Yan Winslow [facility] Work Phone: Start: 11-07-2018 Patient encounter procedure Yan Winslow [facility] Work Phone: Start: 12-10-2013 End: 12-10-2013 Telephone encounter Larry Quinones Work Phone: Neurology Comment on above: Results Cancer cervix - screening done Chance Barnes MD Work Phone: [address] Work Phone: Comment on above: 05/19/2020; ASCUS, HP V POSITIVE12/25/2018; UNSATISFACTORY; Procedures Date Procedure Procedure Detail Performing Clinician Start: 08-05-2024 ALL CBC WITH AUTO DIFF Kim Burnette MD Work Phone: Start: 01-16-2024 Mammography Kim castañeda MD Work [...] oophorectomy Yan Furness Dilation and curettage Patri nirmal Furness Dilation and curetta ge of uterus FREYA JOHNSON H/O: hysterectomy FREYA MACKEY History of tonsillectomy JUAN JOSE JOHNSON Hysterectomy Yan Winslow Operative procedure on ankle Yan Winslow Procedure on foot FREYA MACKEY Tonsillectomy Yan Strickland s Plan of Treatment Date Care Activity Detail Author Start: 11-05-2029 Screening for malign ant neoplasm of colon [facility] Start: 11-01-2025 Screening for malign ant neoplasm of cervix [facility] Start: 01-15-2025 Screening for malign ant neoplasm of breast Mammogram [facility] Start: 08-23-2024 End: 08-23-2024 Patient encounter procedure 08/23/2024 9:00 AM EST Office Visit [facility] [address] [place] [address] Kim Burnette MD [address] [place] [address] [facility] Start: 07-17-2024 End: 07-17-2024 Patient encounter procedure 07/17/2024 9:40 AM EST Office Visit [facility] [address] [place] [id number] Kim Burnette MD [address] [place] [address] Arrived [facility] Comment on above: Arrived Start: 06-19-2024 End: 06-19-2024 Patient encounter procedure 06/19/2024 10:30 AM EDT Office Visit [facility] [address] [place] [address] Kim Burnette MD [address] [facility] [address] [place] [address] Arrived [facility] Comment on above: Arrived Start: 05-23-2024 Patient referral [facility] Work Phone: Start: 04-21-2024 Influenza vaccination Influenza Vacc ine (#1) [facility] Start: 12-21-2021 Patient encounter procedure ANNUAL, Provider: Fely Monroy, Status: Pen, Time: 9:[address] Work Phone: Start: 04-21-2021 Influenza vaccination INFLUENZ A (Season Ended) [facility] Start: 2019 Screening for malign ant neoplasm of colon [facility] Start: 2019 SHINGRIX VACCINE (1 of 2) SHINGRIX VACCINE (1 of 2) [facility] Start: 2014 DIABETES SCREEN DIABETES SCREEN [facility] Start: 2014 LIPID SCREEN LIPID SCREEN [facility] Start: 2009 Mammography MAMMOGRAM [facility] Start: 1999 HPV TESTING HPV TESTING [facility] Start: 1999 Screening for malign ant neoplasm of cervix HPV/Cotest [facility] Start: 1990 PAP TESTING PAP TESTING [facility] Start: 1988 Urine microalbumin profile DTAP,TDAP,TD (1 - Tdap) [facility] Start: 1987 HEPATITIS C SCREENING HEPATITIS C SC REENING [facility] Start: 1987 HIV SCREENING HIV SCREENING [facility] Start: 1981 Adult depression screening assessment DEPRESSION SCREENING [facility] Start: 1969 Screening for malign ant neoplasm of colon [facility] Patient referral [facility] Work Phone: Immunizations Immunization Date Immunization Notes Care Provider Fa cility 07-12-2024 influenza virus vaccine, unspecified formulation Kim Burnette MD Work Phone: [facility] 04-26-2023 Influenza, injectable, Madin Melvin Canine Kidney, preservative free, quadrivalent Kim Burnette MD Work Phone: [facility] 04-26-2023 influenza virus vaccine, unspecified formulation Kim Burnette MD Work Phone: [facility] 05-30-2022 influenza virus vaccine, split virus (incl. purified surface antigen) Imad Asaad Other [employer] Other 05-30-2022 influenza virus vaccine, unspecified formulation [facility] 05-30-2022 Influenza, injectable, Madin Lisbeth Canine Kidney, preservative free, quadrivalent Kim Burnette MD Work Phone: [facility] 05-30-2022 Prevnar 20 Imad Asaad Other [facility] 03-01-2021 zoster vaccine recombinant Kim Burnette MD Work Phone: [facility] 12-17-2020 SARS-CoV-2 (COVID-19 ) mRNA [facility]b2 [facility] 11-25-2020 SARS-CoV-2 (COVID-19 ) mRNA BNT-162b2 [facility] 11-12-2008 hepatitis B vaccine, pediatric or pediatric/adolescent dosage Kim Burnette MD Work Phone: [facility] 04-15-2008 hepatitis B vaccine, pediatric or pediatric/adolescent dosage Kim Burnette MD Work Phone: [facility] 03-18-2008 hepatitis B vaccine, pediatric or pediatric/adolescent dosage Kim Burnette MD Work Phone: [facility] 03-18-2008 measles, mumps and rubella virus vaccine Kim Burnette MD Work Phone: [facility] 03-18-2008 tetanus toxoid, reduced diphtheria toxoid, and acellular pertussis vaccine, adsorbed Kim Burnette MD Work Phone: [facility] 04-06-1976 trivalent poliovirus vaccine, live, oral Kim Burnette MD Work Phone: [facility] 04-09-1974 diphtheria, tetanus toxoids and pertussis vaccine Kim Burnette MD Work Phone: [facility] 07-06-1971 diphtheria, tetanus toxoids and pertussis vaccine Kim Burnette MD Work Phone: [facility] 07-06-1971 trivalent poliovirus vaccine, live, oral Kim Burnette MD Work Phone: [facility] 1969 diphtheria, tetanus toxoids and pertussis vaccine Kim Burnette MD Work Phone: [facility] 1969 trivalent poliovirus vaccine, live, oral Kim Burnette MD Work Phone: [facility] 1969 diphtheria, tetanus toxoids and pertussis vaccine Kim Burnette MD Work Phone: [facility] 1969 diphtheria, tetanus toxoids and pertussis vaccine Kim Burnette MD Work Phone: [facility] 1969 trivalent poliovirus vaccine, live, oral Kim Burnette MD Work Phone: [facility] NEGATED: Highlighted row has not occurred!12-08-2021 influenza virus vaccine, unspecified formulation FREYA JOHNSON [facility] Payers Date Payer Category Payer Self-pay 2021 Unknown [id number] 2020 [facility] [id number] 2011 Private Health Insurance SHEEBA UGALDE OAP [id number] 2011-2015 PPO [id number] 2008 Self-pay SELF PAY HSP/MED ICAL SELF PAY [id number] 2008-2015 SELF PAY Indemnity [id number] 1969 Unknown [id number] .[id number] 1969 Unknown [id number] .[id number] 1969 Unknown [id number] [id number] .[id number] 1969 Unknown [id number] [id number] .[id number] 1969 Unknown [id number] [id number] .2.1286 1969 Unknown [id number] [id number] .2.727 1969 Unknown [id number] [id number] .2.1259 1969 Unknown [id number] [id number] .2.1259 1969 Unknown [id number] [id number] .2.1259 1969 Unknown [id number] .[id number] 1959 [facility] [id number] Unknown Unknown [id number] .2.531 Social History Date Type Detail Facility Assertion Unknown if ever smoked [facility] Work Phone: Start: 08-01-2013 End: 06-19-2024 Tobacco smoking status NHIS Never smoker [facility] Start: 08-01-2013 End: 07-17-2024 Alcohol intake Current drinker of alcohol (finding) [facility] Start: 07-30-2012 Alcohol Comment [facility] Start: 1970 Sex Assigned At Not on file [facility] Start: 11-06-2023 End: 06-19-2024 Non-smoker Non-smoker [facility] [address] [facility] Phone: Tobacco smoking status Never [facility] Start: 11-06-2023 End: 06-19-2024 Sex Assigned At Female [facility] [employer] Other Start: 1970 Sex Assigned At Female [facility] Start: 05-30-2024 Alcoholic beverage intake Ex-drinker (finding) [facility] Start: 11-06-2023 Alcohol Comment occasional [facility] Start: 06-19-2024 Tobacco use and exposure Smokeless tobacco non-user [facility] Functional Status Date Assessment Result Facility 05-09-2024 Functional Status N/A [facility] 04-26-2023 Functional Status N/A [facility] NEGATED: Highlighted row Functional performance Functional status health issues are not documented [facility] Work Phone: Mental Status Date Assessment Result Facility NEGATED: Highlighted row Cognitive function [Interpretation] Cognitive status health issues are not documented [facility] Work Phone: Clinical Notes 12-12-2013 to 07-17-2024 Kim Burnette MD - 07/17/2024 9:40 AM Bushra Burnette MD - 06/19/2024 10:30 AM EDT Note Date & Type Note Facility 07-17-2024 History of Present illness Narrative Subjective Patient ID: Patty Gaxiola is a 54 y.o. female who presents for Sinusitis (Follow up RAST, sinus XR [facility] 06/22/24) Sinus plain films clear. RAST shows [...] obs d/w pt. documented in this encounter [facility] 06-19-2024 History of Present illness Narrative Subjective [...] bedtime Check RAST documented in this encounter [facility] 05-09-2024 Hospital Discharge instructions Patient Education 05/09/2024 [...] (122 g) has 5 g of fiber. [place] sprouts (cooked) cup (78 g) has 4 [...] (155 g) has 1.4 g of fiber. [place] 1 small (154 g) has 3.7 g [...] (77.5 g) has 2.2 g of fiber. [place] (canned or frozen) cup (82.5 g) has [...] (70 g) has 3.2 g of fiber. [place] tortilla one 6-inch (15 cm) tortilla has 1.5 g of fiber. Meats and other proteins Almonds cup or 1 oz (28 g) has 3.5 g of fiber. [place] seeds in shell cup or oz (11.5 [...] (35 g) has 0.5 g of fiber. [place] (slices) cup (60 g) has 0.3 g [...] provider. Document Revised: 12/10/2020 Document Reviewed: 12/10/2020 Pre[employer] Patient Education 2023 [employer]. 05/09/2024 10:49:23 High-Fiber Eating Plan High-Fiber Eating [...] Bulgur wheat. Millet. Quinoa. Bran muffins. Popcorn. Felt wafer crackers. Meats and other proteins Excelsior beans, kidney beans, and dumont beans. Soybeans. [...] Cream cheese. Sour cream. Fats and oils Goodyear. Beverages Soft drinks. Other foods Cakes and [...] provider. Document Revised: 12/10/2020 Document Reviewed: 12/10/2020 [employer]Me Patient Education 2023 [employer]. 05/08/2024 15:12:44 Overactive Bladder, Adult Overactive Bladder, [...] your health care provider. General instructions Take vmdw-ttx-cgqqmjk and prescription medicines only as told by [...] provider. Document Revised: 04/26/2021 Document Reviewed: 04/26/2021 [employer] Patient Education 2023 [employer]. Follow Up Care 04/26/2023 13:57:10 With:FREYA JOHNSON PA-C, URL Address: When:1 year [facility] 05-09-2024 Note Patient Education Gastroenterology Fiber Content [...] g) has 5 g of fiber. ? [place] sprouts (cooked) ? ? cup (78 g) [...] g) has 1.4 g of fiber. ? [place] ? 1 small (154 g) has 3.7 [...] g) has 2.2 g of fiber. ? Madison (canned or frozen) ? ? cup (82.5 [...] g) has 3.2 g of fiber. ? [place] tortilla ? one 6-inch (15 cm) tortilla has 1.5 g of fiber. Meats and other proteins ? Almonds ? ? cup or 1 oz (28 g) has 3.5 g of fiber. ? [place] seeds in shell ? ? cup or [...] g) has 0.5 g of fiber. ? [place] (slices) ? ? cup (60 g) has 0.3 g of fiber. ? Celery ? 1 stalk (40 g) has 0.1 g of fiber. Grains ? Flour tortilla ? one 6-inch (15 (more content not included)... [facility] 07-24-2023 Evaluation note Encounter Date Diagnosis [...] understanding and is agreeable to treatment plan. [employer] Other 11-15-2023 Evaluation note* Encounter Date Diagnosis Assessment Notes Treatment Notes Treatment Clinical Notes Jun, Acute vaginitis (ICD-10 - N76.0) [employer] Other 11-10-2023 Evaluation note* Encounter Date Diagnosis [...] verbalizes understanding and agrees with tx plan. [employer] Other 09-20-2023 Evaluation note* Encounter Date Diagnosis Assessment Notes Treatment Notes Treatment Clinical Notes Apr, Gluten intolerance (ICD-10 - K90.0) [employer] Other 09-06-2023 Hospital Discharge instructions Patient Education 04/26/2023 13:55:04 Urinary Tract Infection, Adult, Fiju-cw-Ounl Urinary Tract Infection, Adult A urinary tract [...] Follow these instructions at home: Medicines Take iwuc-xty-gmkrnoi and prescription medicines only as told by [...] provider. Document Revised: 03/19/2021 Document Reviewed: 03/19/2021 Pre[employer]Me Patient Education 2022 [employer]. Follow Up Care 03/30/2022 13:19:45 With:FREYA JOHNSON PA-C, URL Address: [address] [place] [address] When:Within 1 Year(s) [facility] 08-04-2023 Evaluation note* Encounter Date Diagnosis Assessment Notes Treatment Notes Treatment Clinical Notes Mar, Change in bowel habits (ICD-10 - R19.4) Mar, Fecal incontinence (ICD-10 - R15.9) Mar, Bloating (ICD-10 - R14.0) Mar, Diarrhea, unspecified (ICD-10 - R19.7) [employer] Other 01-20-2023 Evaluation note* Encounter Date Diagnosis Assessment Notes Treatment Notes Treatment Clinical Notes Aug, Left medial knee pain (ICD-10 - M25.562) Discussed options. Handwrote order for pt. Gave exercises for stretching at home. Will call if no improvment for a potential ortho referral. Discussed NSAIDs and heat for improvement [employer] Other 04-20-2022 Hospital Discharge instructions Patient Education [...] fried and sweet foods. General instructions Take rwci-hkv-pxuxyle and prescription medicines only as told by [...] 06/03/2010 Document Revised: 11/28/2019 Document Reviewed: 08/23/2018 [employer]Me Patient Education 2019 [employer]. Follow Up Care 11/11/2021 12:54:29 With:ALEX DANIEL, FREYA Hunter, URL Address: [address] [place] [address] When:3 months [facility] [employer] 03-14-2022 Evaluation note* Encounter Date Diagnosis Assessment Notes Treatment Notes Treatment Clinical Notes Oct, Irritable bowel syndrome with both constipation and diarrhea (ICD-10 - K58.2) Oct, Exocrine pancreatic insufficiency (ICD-10 - K86.81) SAMPLES OF ZENPEP GIVEN TO PT PT TO REPORT PROGRESS Oct, Fecal incontinence (ICD-10 - R15.9) Oct, GERD without esophagitis (ICD-10 - K21.9) [employer] Other 02-27-2022 Evaluation note* Encounter Date Diagnosis [...] infection (UTI) home care material was printed [employer] Other 09-29-2020 NoteAccession #: [id number] Date of Procedure: 05/19/2020 Pathologist: STEF GREEN MD Date Reported: 05/26/2020 Date Received: 05/19/2020 Submitting Physician: FELY MONROY CNM CNP FINAL CYTOLOGICAL INTERPRETATION Squamous and/or [...] verified by the Molecular Diagnostic Laboratory at [facility]. The lab is certified under the Clinical Laboratory Amendments of 1988 (CLIA 88) as qualified to perform high complexity clinical laboratory testing. This specimen has been analyzed by the [employer] Imaging System ([employer] an automated imaging and review system, which assists the laboratory in evaluating cells on ThinPrep Pap tests. Following automated imaging, selected vann from every slide were reviewed by a short haul driver and/or pathologist. Electronically Signed Out By STEF [...] Source of Specimen A: THINPREP PAP VAGINAL [facility] Department of Pathology [id number] [place], [place] [id number] CenterComment on above:Performed By: #### C #### [facility] Cytology [id number] [place] [address] [id number] Miscellaneous Notes* Telephone Encounter - Bridgette Owens [...] cap weekly for 10 weeks. Then, take vxup-sdx-jstwcgc Vitamin D3 supplements of at least 1,000 units daily. The following approved medication requests have been transmitted electronically. Signed Prescriptions Disp Refills cholecalciferol, Vitamin D3, 50,000 unit cap capsule 10 capsule 0 Si cap per week x 10 weeks. ELADIO: No Authorizing Provider: LARRY QUINONES DO [facility] note Future Appointments Appointment Date:03/16/2022 08:30:00 AM Scheduled Provider:FREYA JOHNSON PA-C Location:[facility] Appointment Type:URO Office Visit [facility] evaluation + Plan note Future Appointments Appointment Date:04/30/2024 10:00:00 AM Scheduled Provider:FREYA JOHNSON PA-C Location:[facility] Appointment Type:URO Office Visit [facility] evaluation noteNo InformationNort Cloud Theory Other Evaluation noteNo assessment information available [facility] Work Phone: [email or web address] note* Diagnosis Onset Date Resolution Status Sunburn of first degree acut e Chronic sinusitis acute [facility] Work Phone: Evyinhznfq note* Diagnosis Chronic sinusitis, unspecified location- Primary Allergic rhinitis, unspecified seasonality, unspecified trigger [facility] Diagnosis Hypertrophy of both inferior nasal turbinates- Primary documented in this encounter [facility] Narrative - Reported* Type Description Date Medical History Hypothyroidism Medical History insomnia Medical History acid reflux Surgical History tonsillectomy Surgical History D&C Surgical History hysterectomy Surgical History Foot Surgery right Hospitalization History see above [employer] Other Hiswugj general Narrative - Reported* Type Description Date Medical History Dyspnea Medical History Fatigue Medical History Abdominal bloating Medical History Abdominal pain, RUQ Medical History IBS (irritable bowel syndrome) Medical History Hypothyroidism (acquired) Medical History Acid reflux Surgical History tonsillectomy Surgical History D&C Surgical History hysterectomy Surgical History Foot Surgery right Hospitalization History SEE SURGICAL HX [employer] Other Hisncws general Narrative - Reported* Type Description Date [...] Surgery right Hospitalization History SEE SURGICAL HX [employer] Other History general Narrative - Reported* Type [...] Repair 07/17/23 Hospitalization History SEE SURGICAL HX [employer] Other Hospital course Narrative No data available for this section [facility] Hospital Discharge instructionsAmbulatory Orders* Referral to ENT Time Frame: 05/23/24, Location: None Selected [facility] Work Phone: Progress note No data available for this section [facility] reason for visit Narrativeknee troubles, [facility] Other Summary Purpose Family History uncle Name [...] section and content) DATE CREATED AUTHOR 02/14/2018 [facility] Healthcare DATE CREATED AUTHOR AUTHOR'S ORGANIZ ATION 01/10/2019 [facility] DATE CREATED AUTHOR AUTHOR'S ORGANIZ ATION 01/17/2019 [facility] DATE CREATED AUTHOR AUTHOR'S ORGANIZ ATION 12/16/2020 [facility] DATE CREATED AUTHOR AUTHOR'S ORGANIZ ATION 12/16/2020 [facility] DATE CREATED AUTHOR AUTHOR'S ORGANIZ ATION 01/12/2021 [facility] DATE CREATED AUTHOR AUTHOR'S ORGANIZ ATION 01/27/2023 [facility] DATE CREATED AUTHOR AUTHOR'S ORGANIZ ATION 03/23/2023 [facility] DATE CREATED AUTHOR AUTHOR'S ORGANIZ ATION 12/26/2023 [facility] DATE CREATED AUTHOR AUTHOR'S ORGANIZ ATION 05/11/2024 [facility] DATE CREATED AUTHOR AUTHOR'S ORGANIZ ATION 07/20/2024 [facility] EPIC Source Comments (unrecognize d section and content) In the event this informatio n is protected by the Federal Confidentiality of Alcohol and Drug Abuse Patient Records regulations: The Federal rules restrict any use of the information to criminally investigate or prosecute any alcohol or drug abuse patient.[facility] Reason for Visit (unrecogniz ed section and content) Reason Onset Date Comments Results 12/10/2013 Reason Comments Dry cough Reason Comments Sinusitis Follow up RAST, sinu s XR [facility] 06/22/24 Patient Care team informatio n (unrecognized [...] May 23, 2024 End: May 23, 2024 [employer] Relationship Specialty Start Date End Date Xiomara Aaron MD [address] [place] [id number] PCP - General Family Medicine 11/08/23 [employer] Relationship Specialty Start Date End Date Xiomara Aaron MD [address] [place] [address] PCP - General Family Medicine 11/08/23 [employer]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 [facility] [employer] [facility]. provides no warranty or guarantee of the accuracy or completeness of information in this document.
[2024-08-15] MEDS: LACTATED RINGER'S SOLUTION 1,000 ML 50 ML IV ×2 (10:31→11:50)
[2024-08-15] MEDS: SCOPOLAMINE 1 MG/3 DAYS TRANSDERM PATCH 1 PATCH TD (10:52)
[2024-08-15] MEDS: OXYMETAZOLINE HCL 0.05% NASAL SPRAY 30 SPRAY NS (11:24)
[2024-08-15] MEDS: LIDOCAINE HCL 1%-EPINEPHRINE 1:100,000 20 ML MDV INJ (11:25)
[2024-08-15] MEDS: HYDROMORPHONE HCL 0.5 MG/0.5 ML SYRINGE IV ×3 (12:06→12:18)
[2024-08-15] MEDS: ACETAMINOPHEN 300 MG/ 30 MG CODEINE TABLET 1 TAB PO (12:23)
--- NOTE | 2024-08-15 12:27 | PC.NURSE ---
Cottonoids bilateral nares intact; no active nasal drainage noted
--- NOTE | 2024-08-15 12:30 | PC.NURSE ---
Cottonoids removed by Dr. Gallagher; scant bloody nasal drainage noted
--- NOTE | 2024-08-15 12:32 | PC.NURSE ---
Medicated with Dilaudid as ordered
--- NOTE | 2024-08-15 12:38 | PC.NURSE ---
Medicated with IV Dilaudid as ordered
--- NOTE | 2024-08-15 12:40 | PC.NURSE ---
No active nasal drainage noted
--- NOTE | 2024-08-15 12:43 | PC.NURSE ---
Medicated with IV Dilaudid as ordered; no active nasal drainage noted
--- NOTE | 2024-08-15 12:44 | PC.NURSE ---
Medicated with oral pain medication as ordered
--- NOTE | 2024-08-15 12:46 | PC.NURSE ---
No active nasal drainage noted
--- NOTE | 2024-08-15 13:00 | PC.NURSE ---
No active nasal drainage noted
--- NOTE | 2024-08-15 13:02 | PC.NURSE ---
No active nasal drainage noted
--- NOTE | 2024-08-15 13:48 | PC.NURSE ---
No active nasal drainage noted
== END 2024-08-15 13:55 | disposition home or self-care (01) ==
PROVIDERS: PCP Family Medicine; Visit Provider Otolaryngology
PROC: (CPT 160; principal; 2024-08-15 11:30)
DX: J34.3 Hypertrophy of nasal turbinates (principal); J32.9 Chronic sinusitis, unspecified; Z90.710 Acquired absence of both cervix and uterus; K21.9 Gastro-esophageal reflux disease without esophagitis; E07.9 Disorder of thyroid, unspecified
CPT/HCPCS: 30140; 36415; J0131; J1100; J1171; J2250; J2405; J2704; J3010

== ENCOUNTER 2024-08-16 18:35 | Emergency (ER) | payer BC, SELFPAY ==
--- OUTSIDE RECORDS SUMMARY | 2024-08-16 18:40 | XMS_ITS | CCD ---
Author Organization [facility] Care Team Providers Care Dining Room Attendant Name Role Phone Saba Jenkins Unavailable Unavailable Furness, Yan T Unavailable Unavailable London, Ba U Unavailable Unavailable Wood, Javad Unavailable Unavailable Fried, Fely Unavailable Unavailable Furness, Yan Unavailable Unavailable RoldanMelvin martin Unavailable Unavailable Furness, Yan T Primary Care Provider Pending Provider Unavailable Unavailable Unavailable Unavailable Unavailable Unavailable XIOMARA AARON Primary Care Physician [phone] Blaire Collier Unavailable Shan Kerr Unavailable Xiomara Aaron Unavailable ZURI ., DR COLEY Admitting Unavailable ZURI ., DR COLEY Consulting Unavailable ZURI ., DR OCLEY Attending Unavailable GALEN, DR XIOMARA Hunter Primary [...] Translations: [erythromycin] Drug Allergy 07-30-20 12 Vomiting [facility] (20 sources) Erythromycin; Translations: [Erythromycin] Drug Allergy 02-09-20 23 Vomitus (substance), GI intolerance [facility] Work Phone: (1 source) Erythromycin Drug Allergy 07-02-20 [facility] (1 source) Erythromycin Drug Allergy 09-21-19 21 [facility] (6 sources) Allergies Reconciled Propensity to adverse reactions Unknown [employer] Other Medications Current Medications Medication Drug Class(es) Dates Sig (Normalized) Sig (Original) [id number] 200 actuat albuterol 0.09 mg/actuat metered dose [...] cramping Quantity: 30 Refills: 1 Ordered: 06-May-2020 aYn Winslow MD Start : 06-May-2020 Active doxycycline [...] 20 Refills: 5 Ordered: 08-Sep-2020 Fried LOUIS, CASSANDRA-RN MOBILE, Fely Start : 08-Sep-2020 Active Vagifem 10 [...] intercourse, # 30 cap(s), Refills(s) 3, Pharmacy: [facility]/pharmacy #[id number], 170, cm, 04/26/23 13:36:00 EDT, Height/Length Dosing, [...] Daily, # 90 tab(s), Refills(s) 3, Pharmacy: [facility]/pharmacy #[id number], 170, cm, 12/08/21 9:43:00 EDT, [...] by chau th daily at bedtime. amylase [id number] unt / lipase 04548 unt / protease [id number] unt delayed release oral capsule (8 sources) Start: 11-01-2021 take 1 capsule by mouth every eight hours Zenpep [id number] UNIT 1 CAPSULE Orally THREE TIMES A DAY for 30 days Oct, Not-Taking Biotin (9 sources) Start: 03-16-2023 End: 10-25-2023 take 3334 ug by mouth once daily Biotin Discontinued 3334 MCG PO Daily March 16, 2023 12:00am October 25, 2023 11:08am take 1 tablet by chau th every twenty-four hours Biotin 37434 MCG 1 tablet Orally Once a day Active take 1 tablet by chau th every twenty-four hours Biotin 67660 MCG 1 tablet Orally Once a day Active take 1 tablet by mouth once emy y Biotin 04441 MCG 1 tablet Orally Once a day [...] per week x 10 weeks. estrogens, conjugated (retirement) 1.25 mg oral tablet (3 sources) Estrogen Start: 05-19-2020 take 1 tablet by mouth once daily Premarin 1.25 MG Oral Tablet TAKE 1 TABLET BY MOUTH EVERY DAY Quantity: 90 Refills: 3 Ordered: 13-Aug-2020 [place] DO, Melvin Start : 19-May-2020 Active ESTROGENS, [...] Start : 31-Jul-2019 Active Olopatadine HCl Active Harold 3-Dbb-Qxd-Fish Oil (Fish Oil) 100-160-1,000 mg capsule (2 sources) Start: 10-24-2023 End: 10-25-2023 take 100-160 capsules by mouth once daily Harold 4-Ndt-Geb-Fish Oil (Fish Oil) 100-160-1,000 mg capsule Discontinued 1 CAP PO Daily October 24, 2023 1:00am October 25, 2023 11:08am Harold-3 Fatty Acids (Fish Oil) Capsule (2 sources) Start: 03-16-2023 End: 10-23-2023 take 1 capsule by mouth once daily Harold-3 Fatty Acids (Fish Oil) Capsule Discontinued 1000 MG PO Daily March 16, 2023 12:00am October 23, 2023 4:20pm polyethylene glycol 3350 118766 mg / potassium chloride 2970 mg / sodium bicarbonate 6740 mg / sodium chloride 5860 mg / sodium sulfate 65801 mg powder for oral solution (3 sources) [...] WITH AUTO DIFFon BASOPHILS ABSOLUTE AUTO 0 [facility] Basophils/100 WBC (Bld) 0.8 % 0.2 - 2.0 % [facility] Eosinophils/100 WBC (Bld) 2.5 % 0.9 - 7.0 % [facility] Erythrocyte distribution width (RBC) [Ratio] 12.7 % 11.0 - 15.0 % [facility] Hematocrit (Bld) [Volume fraction] 39.7 % 36.0 - 48.0 % [facility] Hemoglobin (Bld) [Mass/Vol] 13.2 g/dL 12.0 - 16.0 g/dL [facility] IMMATURE GRANULOCYTES ABS AUTO 0.01 [facility] Immature granulocytes/100 WBC (Bld) 0.2 % 0.0 - 0.5 % [facility] Interpretation and review of laboratory results Abnormal [facility] LYMPHOCYTES ABSOLUTE AUTO 1.8 [facility] Lymphocytes/100 WBC (Bld) 36.2 % 20.5 - 60.0 % [facility] MCH (RBC) [Entitic mass] 31.7 pg 26.7 - 34.0 pg [facility] MCHC (RBC) [Mass/Vol] 33.2 g/dL 29.9 - 35.2 g/dL [facility] MCV (RBC) [Entitic vol] 95.2 fL 81.0 - 99.0 fL [facility] MONOCYTES ABSOLUTE AUTO 0.3 [facility] Monocytes/100 WBC (Bld) 6.4 % 1.7 - 12.0 % [facility] NEUTROPHILS ABSOLUTE AUTO 2.6 [facility] Neutrophils/100 WBC (Bld) 53.9 % 43.0 - 75.0 % [facility] Platelet mean volume (Bld) [Entitic vol] 10 fL 9.5 - 13.5 fL [facility] TBH EO # 0.1 [facility] TB PLT 216 [facility] TB RBC 4.17 Low [facility] TB WBC 4.8 [facility] Reminderson 05-09-2024 Reminders Reminders From: Jolly Araiza To: EU - Administrative; Sent: 05/09/2024 10:56:05 EDT Show up: 05/09/2024 10:56:00 EDT Subject: 1 yr F/U Due Date/Time: 05/10/2025 10:55:00 EDT Reminder/Recall Patient will need scheduled with for a 1 yr F/U, due back 05/10/2025 Normal [facility] Urology Office/Clinic Noteon 05-09-2024 Urology Office/Clinic [...] Urinary tract infection, site not specified) 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 Was taking once weekly with good results. Stopped about 6-12 mos ago without any breakthrough infections. No current UTI sx. Unable to give sample today. Ordered: E&M of Est. Patient Low 20-29 Min 13491 2. OAB (overactive bladder) (N32.81: Overactive bladder) Oxybutynin ER 5mg QD (switched from IR previously). I see that she is consistently filling this. No bothersome SE's. Denies frequency. Feels medication is working well and does not wish to make any adjustments at this time. Refills sent. Ordered: E&M of Est. Patient Low 20-29 Min 51987 3. IBS (irritable bowel syndrome) (K58.9: Irritable [...] E&M of Est. Patient Low 20-29 Min 09198 Orders: nitrofurantoin, See Instructions, 1 cap orally after intercourse, # 30 cap(s), Refills(s) 3, [id number] 170, cm, 04/26/23 13:36:00 EDT, Height/Length Dosing, 69.1, kg, 04/26/23 13:36:00 EDT, Weight Dosing oxybutynin, 5 mg = 1 tab(s), Oral, Daily, # 90 tab(s), Refills(s) 3, [id number] 170, cm, 05/09/24 10:34:00 EDT, Height/Length [...] mRNA BNT-162b2 vax 11/25/2020 Recorded Normal [facility] Comment on above: Result Comment: Elec tronically Signed By: ALEX DANIEL, FREYA Chao\Date and Time Signed: 05/09/24 11:05 EDT Cortisol [Mass/Vol]on 2023 CORTISOL 9.4 ug/dL Normal [place] Comment on above: Result Comment: Due to the diurnal variation of cortisol levels in normal subjects, all cortisol measurements should be referenced to the time of day of sample collection. AM Cortisol Age>=6 6.7-22.4 ug/dL PM Cortisol Age>=6 <10 ug/dL Performed By: #### 2 143-6 #### [facility] ([id number]) [address], [address] [place] [address] THYROGLOBULIN ABon 4 Thyroglobulin Ab Qn [IU]/mL Normal <4.0 [place] Comment on above: Performed By: #### 3 5365-6, 8098-6, 8099-4 #### [facility] ([id number]) [address], [address] [place] [address] THYROPEROXIDASE ABon 024 TPO Ab Qn [IU]/mL Normal <10 [place] Comment on above: Performed By: #### 3 5365-6, 8098-6, 8099-4 #### [facility] ([id number]) [address], [address] [place] [address] Vitamin D+Metabolites [Mass/ Vol]on 12-25-2023 VITAMIN D 25 HYD TOT 28.2 ng/mL Low 30-100 [place] Comment on above: Result Comment: Vitamin D status 25 [place] Vitamin D Deficiency <20 ng/mL Insufficiency 20-29 ng/mL Sufficiency 30-100 ng/mL Toxicity >100 ng/mL NOTE: A pediatric reference range has not been established by the staff electronic warfare officer of this kit. The [place] [employer] recommends a Vitamin D level of = or >20ng/mL in infants and children. Performed By: #### 3 5365-6, 8098-6, 8099-4 #### [facility] ([id number]) [address], [address] [place] [address] Adrian 03-16-2023 L -- Specimen: [id number] Received: 03/16/23 Status: NANDADarline Nilam Num: [id number] Spec Type: Surgical Subm Dr: Meseret Cool MD Tissues: A Duodenum - Biopsy (DUODENAL BX) B GASTRIC FOR HP (GASTRIC HP) C Gastric Biopsy (GASTRIC POLYP) D Colon Biopsy (RANDOM BX) Procedures: TOM/Chris, Gross/Micro L4/4, H PYLORI -- Age/ Patient Sex Location Account Attending Physician -- Patty Gaxiola 53/F [id number] Meseret Cool MD -- SPEC NUM: [id number] RECD: 03/16/23 STATUS: KYLE HERNANDEZ NUM: [id number] GILMAR: 03/16/23 DR: Meseret Cool MD ENTERED: 03/16/23 [facility] DR: SPEC TYPE: Surgical DEPT: [...] for H. pylori (immunohistochemical stain) -- Specimen: [id number] Received: 03/16/23 [facility] Num: [id number] Spec Type: Surgical Subm Dr: Meseret Cool MD Tissues: A Duodenum - Biopsy (DUODENAL BX) B GASTRIC FOR HP (GASTRIC HP) C Gastric Biopsy (GASTRIC POLYP) D Colon Biopsy (RANDOM BX) Procedures: HE/8, Gross/Micro L4/4, H PYLORI -- Patient: Patty Gaxiola [id number] (Continued) -- Specimen: [id number] Received: 03/16/23 (Continued) Pathological Diagnosis (Continued) Signed (signature on file) Glen Selby MD 03/21/23 1152 -- Specimen: [id number] Received: 03/16/23 Status: KYLE Demarco Num: [id number] Spec Type: Surgical Subm Dr: Meseret Cool MD Tissues: A Duodenum - Biopsy (DUODENAL BX) B GASTRIC FOR HP (GASTRIC HP) C Gastric Biopsy (GASTRIC POLYP) D Colon Biopsy (RANDOM BX) Procedures: HE/8, Gross/Micro L4/4, H PYLORI -- Patient: Patty Gaxiola [id number] (Continued) -- Specimen: [id number] Received: 03/16/23-1352 (Continued) Pathological Diagnosis (Continued) D. [...] examination confi (more content not included)... Normal [facility] CBC AUTO DIFFon 01-18-2023 BASO # 0.1 103/ul Normal 0.0-0.1 [facility] Comment on above: Performed By: #### C BC #### [facility] [address] [place] [address] Dr. Vasyl Irving Basophils/100 WBC (Bld) 1.0 % Normal 0.2-2.0 [facility] Comment on above: Performed By: #### C BC #### [facility] [address] [place] [address] Dr. Vasyl Irving EO # 0.1 103/ul Normal 0.0-0.7 [facility] Comment on above: Performed By: #### C BC #### [facility] [address] [place] [address] Dr. Vasyl Irving Eosinophils/100 WBC (Bld) 2.0 % Normal 0.9-7.0 [facility] Comment on above: Performed By: #### C BC #### [facility] [address] [place] [address] Dr. Vasyl Irving Erythrocyte distribution width (RBC) [Ratio] 12.7 % Normal 11.0-15.0 [facility] Comment on above: Performed By: #### C BC #### [facility] [address] [place] [address] Dr. Vasyl Irving Hematocrit (Bld) [Volume fraction] 42.6 % Normal 36.0-48.0 [facility] Comment on above: Performed By: #### C BC #### [facility] [address] [place] [address] Dr. Vasyl Irving Hemoglobin (Bld) [Mass/Vol] 14.2 g/dL Normal 12.0-16.0 [facility] Comment on above: Performed By: #### C BC #### [facility] [address] [place] [address] Dr. Vasyl Irving IG # 0.01 10e3/ul Normal 0.00-0.03 [facility] Comment on above: Performed By: #### C BC #### [facility] [address] [place] [address] Dr. Vasyl Irving IG % 0.2 % Normal 0.0-0.5 [facility] Comment on above: Performed By: #### C BC #### [facility] [address] [place] [address] Dr. Vasyl Irving LYMPH # 2.2 103/ul Normal 1.2-3.8 [facility] Comment on above: Performed By: #### C BC #### [facility] [address] [place] [address] Dr. Vasyl Irving Lymphocytes/100 WBC (Bld) 42.2 % Normal 20.5-60.0 [facility] Comment on above: Performed By: #### C BC #### [facility] [address] [place] [address] Dr. Vasyl Irving MANUAL DIFF REQ NO Normal [facility] Comment on above: Performed By: #### C BC #### [facility] [address] [place] [address] Dr. Vasyl Irving MCH (RBC) [Entitic mass] 31.7 pg Normal 26.7-34.0 [facility] Comment on above: Performed By: #### C BC #### [facility] [address] [place] [address] Dr. Vasyl Irving MCHC (RBC) [Mass/Vol] 33.3 g/dL Normal 29.9-35.2 [facility] Comment on above: Performed By: #### C BC #### [facility] [address] [place] [address] Dr. Vasyl Irving MCV (RBC) [Entitic vol] 95.1 fL Normal 81.0-99.0 [facility] Comment on above: Performed By: #### C BC #### [facility] [address] [place] [address] Dr. Vasyl Irving MONO # 0.3 103/ul Normal 0.3-0.8 [facility] Comment on above: Performed By: #### C BC #### [facility] [address] [address] [address] Vasyl Irving Monocytes/100 WBC (Bld) 5.9 % Normal 1.7-12.0 [facility] Comment on above: Performed By: #### C BC #### [facility] [address] [address] [address] Vasyl Irving NEUT # 2.5 103/ul Normal 1.4-6.5 [facility] Comment on above: Performed By: #### C BC #### [facility] [address] [place] [address] Dr. Vasyl Irving Neutrophils/100 WBC (Bld) 48.7 % Normal 43.0-75.0 [facility] Comment on above: Performed By: #### C BC #### [facility] [address] [place] [address] Dr. Vasyl Irving Platelet mean volume (Bld) [Entitic vol] 9.7 fL Normal 9.5-13.5 [facility] Comment on above: Performed By: #### C BC #### [facility] [address] [place] [address] Dr. Vasyl Irving PLT 220 103/ul Normal 150-450 [facility] Comment on above: Performed By: #### C BC #### [facility] [address] [place] [address] Dr. Vasyl Irving RBC 4.48 106/ul Normal 4.20-5.40 [facility] Comment on above: Performed By: #### C BC #### [facility] [address] [place] [address] Dr. Vasyl Irving WBC 5.1 103/ul Normal 4.0-11.0 [facility] Comment on above: Performed By: #### C BC #### [facility] [address] [place] [address] Dr. Vasyl Irving CRPon 01-18-2023 CRP [Mass/Vol] mg/L Normal <=1.0 [facility] [place] Comment on above: Performed By: #### C RP, TSH #### [facility] [address] [place], [place] [address] Dr. Vasyl Irving [facility] SED RATE 13 mm/hr Normal <=30 [facility] Comment on above: Performed By: #### S EDR #### [facility] [address] [place], [place] [address] Dr. Vasyl Irving TSHon 01-18-2023 TSH 1.088 uIU/mL Normal 0.358-3.74 0 [facility] Comment on above: Performed By: #### C RP, TSH #### [facility] [address] [address] [address] Vasyl Irving MG MAMM SCREEN 3D EDWARD CADon 01-09-2023 MG MAMM SCREEN 3D EDWARD CAD Patient: PATTY GAXIOLA Exam Date: 01/09/2023 : 1970 Gender:F Ordering : DR BRIJESH KEATING . Admission #: [id number] Family : Order #: [id number] CLICK HERE TO VIEW EXAM RADIOLOGY REPORT [...] Treatments None Family Cancers None LOCATION: [facility] BREAST COMPOSITION: Heterogeneously dense,which may [...] Jose Easley M.D. on 01/09/2023 at 12:05 [facility] PAP ACOG PANEL 2: 30 to 65on 11-09-2022 . . Normal [facility] Comment on above: Result Comment: Perf ormed at: WB Performed By: #### 4 [id number] #### [facility] [address] [place] [address] Dr. Vasyl Irving Age Gdln ACOG Testing 30-65 Normal [facility] Comment on above: Performed By: #### 4 [id number] #### [facility] [address] [address] [address] Vasyl Irving DIAGNOSIS: Comment Normal [facility] Comment on above: Result Comment: NEGA TIVE FOR INTRAEPITHELIAL LESION OR MALIGNANCY. Performed at: WB Performed By: #### 4 [id number] #### [facility] [address] [place] [address] Dr. Vasyl Irving HPV Aptima Negative Normal Negative [facility] Comment on above: Result Comment: This nucleic acid amplification test detects fourteen high-risk HPV types (16,18,31,33,35,39,45,51,52,56,58,59,66,68) without differentiation. Performed at: =G Performed By: #### 4 [id number] #### [facility] [address] [address] [address] Vasyl Irving HPV Genotype Reflex Comment [facility] Comment on above: Result Comment: Crit eria not met, HPV Genotype not performed. Performed at: WB Performed By: #### 4 [id number] #### [facility] [address] [place] [address] Dr. Vasyl Irving Methodology: Comment [facility] Comment on above: Result Comment: This liquid based ThinPrep(R) pap test was screened with the use of an image guided system. Performed at: WB Performed By: #### 4 [id number] #### [facility] [address] [place] [address] Dr. Vasyl Irving Note: Comment Normal [facility] Comment on above: Result Comment: The Pap smear is a screening test designed to aid in the detection of premalignant and malignant conditions of the uterine cervix. It is not a diagnostic procedure and should not be used as the sole means of detecting cervical cancer. Both false-positive and false-negative reports do occur. . Performed at: WB Performed By: #### 4 [id number] #### [facility] [address] [place] [address] Dr. Vasyl Irving Performed by: Comment Normal [facility] Comment on above: Result Comment: Ebenezer Wang, Recruiter Specialist (ASCP) Performed at: WB Performed By: #### 4 [id number] #### [facility] [address] [place] [address] Dr. Vasyl Irving Specimen adequacy: Comment Normal [facility] Comment on above: Result Comment: Sati sfactory for evaluation. No endocervical cells are present. This is consistent with a history of hysterectomy. Performed at: WB Performed By: #### 4 [id number] #### [facility] [address] [place] [address] Dr. Vasyl Irving STOOL CULTUREon 07-29-2022 Campylobacter Culture Final report Normal [facility] Comment on above: Performed By: #### C XSTOOL #### [facility] [address] [place] [address] Dr. Vasyl Irving E coli Shiga Toxin EIA Negative Normal Negative [facility] Comment on above: Performed By: #### C XSTOOL #### [facility] [address] [place] [address] Dr. Vasyl Irving Result 1 Comment Normal [facility] Comment on above: Result Comment: No S almonella or Shigella recovered. Performed By: #### C XSTOOL #### [facility] [address] [place] [address] Dr. Vasyl Irving Result Comment: No C ampylobacter species isolated. Salmonella/Shigel la Screen Final report Normal [facility] Comment on above: Performed By: #### C XSTOOL #### [facility] [address] [place] [address] Dr. Vasyl Irving Urinalysis - AUTOMATEDon Appearance (U) thick [place] [employer] Other Bilirubin Ql (U) Negative [employer] Other Color (U) red/orange [employer] Other Glucose Ql (U) 100 [employer] Other Hemoglobin Ql (U) moderate Monitor [employer] Other Ketones Ql (U) trace [employer] Other Leukocyte esterase Test strip Ql (U) large [employer] Other Nitrite Ql (U) Positive [employer] Other pH (U) 5.0 [pH] [employer] Other Protein Ql (U) 100 [employer] Other Specific gravity (U) [Rel density] 1.010 [employer] Other Urobilinogen (U) [Mass/Vol] 2.0 mg/dL [employer] Other Urinalysis - AUTOMATED [employer] Other DIGITAL MAMM SCREENING W/ TO Agudelo 01-04-2021 DIGITAL MAMM SCREENING W/ ANIVAL Patient Name: PATTY GAXIOLA STUDY: Digital mammography screening with anival; 01/04/2021 9:17 am ACCESSION NUMBER(S): [id number] ORDERING CLINICIAN: FELY MONROY INDICATION: Screening. COMPARISON: [...] Electronically signed by: MAYANK SALES MD [facility] Mamm - Screening Mammogram w / Tomosynthesison 01-04-2021 MG Breast Screening Normal 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 Vitals Vital Signs Recorded: 15Dec2020 08:54AM Swqseilnddv17.8 F Bcixxusj959 Gisjomyjp37 Height5 ft 7.5 in Qnemsw798 lb 3.65 oz BMI Kwqsfgwksh02.33 BSA Calculated1.74 LMPhsyter Physical Exam A+O x [...] and is (more content not included)... Normal [place] [employer] - Office Visiton 04-22 SPOUT LINER HELPER - Office Visit Chief Complaint PATIENT HERE [...] 4 times daily PRN abdominal cramping; Therapy: 77Hbe9674 to (Evaluate:09Rpy4034) Requested for: 47Tis2116; Last Rx:[id number] Ordered Rx By: Yan Winslow; Dispense: 8 Days ; #:30 Tablet; Refill: 1;For: Epigastric pain; ELADIO = N; Verified Transmission to [facility] #[id number]; Last Updated By: Wang Wolf; 05/06/2020 11:44:32 AM Famotidine 20 MG Oral Tablet; Take 1 tablet twice daily; Therapy: 46Oiv9633 to (Evaluate:61Lhd4009) Requested for: 66Gbr8931; Last Rx:[id number] Ordered Rx By: Yan Winslow; Dispense: 30 Days ; #:60 Tablet; Refill: 1;For: Epigastric pain; ELADIO = N; Verified Transmission to [facility] #6167; Last Updated By: Silver Push; 05/06/2020 11:44:29 AM Nortriptyline HCl - 25 MG Oral Capsule; TAKE 1 CAPSULE AT BEDTIME; Therapy: 25Oct2019 to (Evaluate:19Oct2020) Requested for: 25Oct2019; Last Rx:25Oct2019 Ordered Rx By: Yan Winslow; Dispense: 90 Days ; #:90 Capsule; Refill: 3;For: Health Maintenance; ELADIO = N; Verified Transmission to [facility] #6167; Last Updated By: Silver Push; 10/25/2019 11:30:52 AM Pantoprazole Sodium 40 MG Oral Tablet Delayed Release; TAKE 1 TABLET DAILY Requested for: 03Feb2020; Last Rx:03Feb2020 Ordered Rx By: Yan Winslow; Dispense: 90 Days ; #:90 Tablet; Refill: 3;For: Health Maintenance; ELADIO = N; Verified Transmission to [facility]; Last Updated By: Silver Push; 02/03/2020 11:36:26 AM Levothyroxine Sodium 100 MCG Oral Tablet; TAKE 1 TABLET DAILY Requested for: 03Feb2020; Last Rx:03Feb2020 Ordered Rx By: Yan Winslow; Dispense: 90 Days ; #:90 Tablet; Refill: 3;For: Hypothyroidism, unspecified type; ELADIO = N; Verified Transmission to [facility]; Last Updated By: Silver Push; 02/03/2020 11:36:28 AM Oxybutynin (more content not included)... Normal [facility] CBC AND DIFFERENTIALon 05-06 Basophils (Bld) [#/Vol] 0.00 10*3/uL Normal 0.00 - 0.10 [facility] Comment on above: Performed By: #### C BCDF #### [address] [address] Basophils/100 WBC (Bld) 0.7 % Normal 0.0 - 2.0 [facility] Comment on above: Performed By: #### C BCDF #### [address] [place] [address] Eosinophils (Bld) [#/Vol] 0.10 10*3/uL Normal 0.00 - 0.70 [facility] Comment on above: Performed By: #### C BCDF #### [address] [address] Eosinophils/100 WBC (Bld) 2.2 % Normal 0.0 - 6.0 [facility] Comment on above: Performed By: #### C BCDF #### [address] [address] Erythrocyte distribution width (RBC) [Ratio] 13.6 % Normal 11.5 - 14.5 [facility] Comment on above: Performed By: #### C BCDF #### [address] [address] Hematocrit (Bld) [Volume fraction] 43.7 % Normal 36.0 - 46.0 [facility] Comment on above: Performed By: #### C BCDF #### [address] [address] Hemoglobin (Bld) [Mass/Vol] 14.4 g/dL Normal 12.0 - 16.0 [facility] Comment on above: Performed By: #### C BCDF #### [address] [address] Lymphocytes (Bld) [#/Vol] 1.80 10*3/uL Normal 1.20 - 4.80 [facility] Comment on above: Performed By: #### C BCDF #### [address] [address] Lymphocytes/100 WBC (Bld) 30.2 % Normal 13.0 - 44.0 [facility] Comment on above: Performed By: #### C BCDF #### [address] [address] MCHC (RBC) [Mass/Vol] 32.9 g/dL Normal 32.0 - 36.0 [facility] Comment on above: Performed By: #### C BCDF #### [address] [address] MCV (RBC) [Entitic vol] 97 fL Normal 80 - 100 [facility] Comment on above: Performed By: #### C BCDF #### [address] [address] Monocytes (Bld) [#/Vol] 0.30 10*3/uL Normal 0.10 - 1.00 [facility] Comment on above: Performed By: #### C BCDF #### [address] [address] Monocytes/100 WBC (Bld) 5.6 % Normal 2.0 - 10.0 [facility] Comment on above: Performed By: #### C BCDF #### [address] [address] Neutrophils (Bld) [#/Vol] 3.60 10*3/uL Normal 1.20 - 7.70 [facility] Comment on above: Result Comment: Perc ent differential counts (%) should be interpreted in the context of the absolute cell counts (cells/L). Performed By: #### C BCDF #### [address] [address] Neutrophils/100 WBC (Bld) 61.3 % Normal 40.0 - 80.0 [facility] Comment on above: Performed By: #### C BCDF #### [address] [address] Platelets (Bld) [#/Vol] 224 10*3/uL Normal 150 - 450 [facility] Comment on above: Performed By: #### C BCDF #### [address] [address] RBC 4.52 x10E12/L Normal 4.00 - 5.20 [facility] Comment on above: Performed By: #### C BCDF #### [address] [address] WBC (Bld) [#/Vol] 5.8 10*3/uL Normal 4.4 - 11.3 [facility] Comment on above: Performed By: #### C BCDF #### [address] [address] COMPREHENSIVE PANELon 2019 Albumin [Mass/Vol] 4.2 g/dL Normal 3.4 - 5.0 [facility] Comment on above: Performed By: #### C MP #### [address] [address] ALP [Catalytic activity/Vol] 64 U/L Normal 33 - 110 [facility] Comment on above: Performed By: #### C MP #### [address] [address] ALT [Catalytic activity/Vol] 17 U/L Normal 7 - 45 [facility] Comment on above: Result Comment: Sandie ents treated with Sulfasalazine may generate falsely decreased results for ALT. Performed By: #### C MP #### [address] [address] Anion gap [Moles/Vol] 10 mmol/L Normal 10 - 20 [facility] Comment on above: Performed By: #### C MP #### [address] [address] AST [Catalytic activity/Vol] 23 U/L Normal 9 - 39 [facility] Comment on above: Performed By: #### C MP #### [address] [address] Bilirubin [Mass/Vol] 0.6 mg/dL Normal 0.0 - 1.2 [facility]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 Protein mass conc 7.0 g/dL Normal 6.4-8.2 [facility] Comment on above: Performed By: #### 2 [id number] #### LAVELLE [employer] [address] [place], [place] [id number] Sodium molar conc 140 mmol/L Normal 136-145 [facility] Comment on above: Performed By: #### 2 361996 #### [employer]LE [employer] [address] [place] [address] 99229 Urea nitrogen mass conc 13 mg/dL Normal 6-23 [facility] Comment on above: Performed By: #### 2 [id number] #### LAVELLE [employer] [address] [place] [address] 23489 Urea nitrogen/Creatini ne mass ratio 21.7 ratio Normal 5.4-30.0 [facility] Comment on above: Performed By: #### 2 959134 #### LAVELLE [employer] [address] [place] [address] 78105 TSHon 09-25-2018 Thyrotropin Qn 0.02 mcIU/mL Low 0.30-5.60 [facility] Comment on above: Performed By: #### 2 [id number] #### LAVELLE [employer] [address] [place] [address] 34099 eGFRon 09-25-2018 GFR/1.73 sq M predicted among non-blacks MDRD vol rate/area (S/P/Bld) mL/min/{1.73_m2} Normal [facility] Comment on above: Order Comment: Order added by Discern Expert. Performed By: #### 1 [id number] #### LAVELLE [employer] [address] [place] [address] Vit B12on 08-07-2018 Cobalamin (Vitamin B12) mass conc 784 pg/mL Normal 180-914 [facility] Comment on above: Performed By: #### 2 [id number] #### LAVELLE [employer] [address] [place] [address] TSHon 05-02-2018 Thyrotropin Qn 0.06 mIU/m Low 0.30-5.60 [facility] Comment on above: Performed By: #### 2 193549 #### LAVELLE [employer] [address] [place] [address] Vit B12on 05-02-2018 Cobalamin (Vitamin B12) mass conc 240 pg/mL Normal 180-914 [facility] Comment on above: Performed By: #### 2 [id number] #### LAVELLE Rem[employer] [address] [place] [address] C Urineon 02-07-2018 C Urine Final Report: Light growth of Mixed skin contaminants in Moderate Normal skin michael isolated Normal [facility] Comment on above: Performed By: #### 2 [id number] #### LAVELLE Microbiology Subsection [address] [place] [address] Pathology (EM)on 03-16-2017 Pathology (EM) FINAL GYNECOLOGIC CY TOLOGY SFTBLGON-[id number] ADEQUACYUnsatisfactory for Evaluation. Specimen is processed and examined, butunsatisfactory for evaluation of epithelial abnormality due to:Scant cellularity.GENERAL CATEGORIZATIONUnsatisfactory for evaluation.COMMENTHigh Risk HPV was ordered and performed at [facility]. Results arereported below in this [...] E6/E7 viral messenger RNA (mRNA) high-risk HPV ayippavlj87,18,31,33,35,39,45, 51,55,58,59,66, and 68 which are associated with cervicalcancer and its precursor lesions. However, cross-reactions with othergenotypes may occur. Results should be correlated with cytologic andhistologic findings. Sensitivity may be affected by cellularity of specimen.CLINICAL HISTORYComment: LMP: No UterusHysterectomySPECIMEN(A) SCREENING VAGINAL LIQUID-BASED PAP SMEARPerformed at [facility], [address] [place], [place] [address]Screened by: Signed Out by: DAVON CASTILLO Recruiter Specialist Reported: 03/20/2017 Normal [facility] Comment on above: Performed By: #### G YN ####[facility] [address] [place] [address] Vital Signs Date Time Vital Sign Value Performing Clinician Facility 07-17-2024 09:38-0500 Body height 171.5 cm Kim Burnette MD Work Phone: [facility] 07-17-2024 09:38-0500 Body mass index (BMI) [Ratio] 23.15 kg/m2 Kim Burnette MD Work Phone: [facility] 07-17-2024 09:38-0500 Body weight 68.04 kg Kim Burnette MD Work Phone: [facility] 07-17-2024 09:38-0500 Diastolic blood pressure 63 mm[Hg] Kim Burnette MD Work Phone: [facility] 07-17-2024 09:38-0500 Systolic blood pressure 107 mm[Hg] Kim Burnette MD Work Phone: [facility] 06-19-2024 10:41-0400 Body height 171.5 cm Kim Burnette MD Work Phone: [facility] 06-19-2024 10:41-0400 Body mass index (BMI) [Ratio] 22.38 kg/m2 Kim Burnette MD Work Phone: [facility] 06-19-2024 10:41-0400 Body weight 65.77 kg Kim Burnette MD Work Phone: [facility] 06-19-2024 10:41-0400 Diastolic blood pressure 76 mm[Hg] Kim Burnette MD Work Phone: [facility] 06-19-2024 10:41-0400 Systolic blood pressure 109 mm[Hg] Kim Burnette MD Work Phone: [facility] 05-23-2024 08:08-0400 Body height 171.45 cm [facility] 05-23-2024 08:08-0400 Body mass index (BMI) [Ratio] 22.1 kg/m2 [facility] 05-23-2024 08:08-0400 Body weight 65.03 kg [facility] 05-23-2024 08:08-0400 Diastolic blood pressure 60 mm[Hg] [facility] 05-23-2024 08:08-0400 Heart rate 71 /min [facility] 05-23-2024 08:08-0400 Respiratory rate 16 /min [facility] 05-23-2024 08:08-0400 SaO2% (BldA) [Mass fraction] 96 % [facility] 05-23-2024 08:08-0400 Systolic blood pressure 102 mm[Hg] [facility] 05-09-2024 10:27-0400 Blood Pressure Location FREYA JOHNSON [facility] 05-09-2024 10:27-0400 Diastolic blood pressure 52 mm[Hg] FREYA JOHNSON [facility] 05-09-2024 10:27-0400 Heart rate 74 /min FREYA JOHNSON [facility] 05-09-2024 10:27-0400 Systolic blood pressure 101 mm[Hg] FREYA JOHNSON [facility] 04-10-2024 09:17-0400 Body height 171.45 cm [facility] 04-10-2024 09:17-0400 Body mass index (BMI) [Ratio] 23.6 kg/m2 [facility] 04-10-2024 09:17-0400 Body weight 69.39 kg [facility] 04-10-2024 09:17-0400 Diastolic blood pressure 71 mm[Hg] [facility] 04-10-2024 09:17-0400 Heart rate 73 /min [facility] 04-10-2024 09:17-0400 Systolic blood pressure 104 mm[Hg] [facility] 07-24-2023 14:45-0500 Body height 171.45 cm Freya Ponce Other [facility] [employer] Other 07-24-2023 14:45-0500 Body mass index (BMI) [Ratio] 22.53 kg/m2 Freya Ponce Other [employer] Other 07-24-2023 14:45-0500 Body weight 66.23 kg Freya Ponce Other [employer] Other 07-24-2023 14:45-0500 Diastolic blood pressure 62 mm[Hg] Freya Ponce Other [employer] Other 07-24-2023 14:45-0500 SaO2% (BldA) [Mass fraction] 98 % Freya Ponce Other [employer] Other 07-24-2023 14:45-0500 Systolic blood pressure 104 mm[Hg] Freya Ponce Other [employer] Other 06-30-2023 09:00-0500 Body height 171.45 cm Freya Kris Other [employer] Other 06-30-2023 09:00-0500 Body mass index (BMI) [Ratio] 22.68 kg/m2 Freya Kris Other [employer] Other 06-30-2023 09:00-0500 Body weight 66.68 kg Freya Kris Other [employer] Other 06-30-2023 09:00-0500 Diastolic blood pressure 64 mm[Hg] Freya Kris Other [employer] Other 06-30-2023 09:00-0500 SaO2% (BldA) [Mass fraction] 97 % Freya Kris Other [employer] Other 06-30-2023 09:00-0500 Systolic blood pressure 102 mm[Hg] Freya Kris Other [employer] Other 05-10-2023 13:00-0400 Body height 171.45 cm Imad Asaad Other [employer] Other 05-10-2023 13:00-0400 Body mass index (BMI) [Ratio] 23.07 kg/m2 Imad Asaad Other [employer] Other 05-10-2023 13:00-0400 Body weight 67.81 kg Imad Asaad Other [employer] Other 05-10-2023 13:00-0400 Diastolic blood pressure 83 mm[Hg] Imad Asaad Other [facility] [employer] Other 05-10-2023 13:00-0400 Systolic blood pressure 130 mm[Hg] Imad Asaad Other [facility] [employer] Other 04-26-2023 13:34-0400 Blood Pressure Location FREYA ALEX [facility] 04-26-2023 13:34-0400 Diastolic blood pressure 76 mm[Hg] FREYA ALEX [facility] 04-26-2023 13:34-0400 Heart rate 76 /min FREYA ALEX [facility] 04-26-2023 13:34-0400 Respiratory rate 16 /min FREYA ALEX [facility] 04-26-2023 13:34-0400 Systolic blood pressure 112 mm[Hg] FREYA ALEX [facility] 09-09-2022 09:30-0500 Body height 171.45 cm Xiomara Aaron Other [facility] [employer] Other 09-09-2022 09:30-0500 Body mass index (BMI) [Ratio] 23.61 kg/m2 Xiomara Aaron Other [employer] Other 09-09-2022 09:30-0500 Body weight 69.4 kg Xiomara Aaron Other [employer] Other 09-09-2022 09:30-0500 Diastolic blood pressure 72 mm[Hg] Xiomara Aaron Other [employer] Other 09-09-2022 09:30-0500 SaO2% (BldA) [Mass fraction] 98 % Xiomara Aaron Other [employer] Other 09-09-2022 09:30-0500 Systolic blood pressure 126 mm[Hg] Xiomara Aaron Other [employer] Other 12-08-2021 09:21-0400 Blood Pressure Location FREYA JOHNSON [facility] [employer] 12-08-2021 09:21-0400 Diastolic blood pressure 77 mm[Hg] [facility] 12-08-2021 09:21-0400 Heart rate 72 /min FREYA JOHNSON [facility] 12-08-2021 09:21-0400 Systolic blood pressure 111 mm[Hg] FREYA JOHNSON [facility] 11-01-2021 11:45-0400 Body height 171.45 cm Shan Kerr Other [employer] Other 11-01-2021 11:45-0400 Body mass index (BMI) [Ratio] 22.53 kg/m2 Shan Kerr Other [employer] Other 11-01-2021 11:45-0400 Body weight 66.23 kg Shan Kerr Other [employer] Other 11-01-2021 11:45-0400 Diastolic blood pressure 69 mm[Hg] Shan Kerr Other [employer] Other 11-01-2021 11:45-0400 Systolic blood pressure 107 mm[Hg] Shan Kerr Other [employer] Other 10-17-2021 14:05-0500 Body height 171.45 cm Blaire Collier Other [employer] Other 10-17-2021 14:05-0500 Body mass index (BMI) [Ratio] 23.45 kg/m2 Blaire Collier Other [employer] Other 10-17-2021 14:05-0500 Body temperature 97.8 [degF] Blaire Collier Other [employer] Other 10-17-2021 14:05-0500 Body weight 68.95 kg Blaire Collier Other [employer] Other 10-17-2021 14:05-0500 Diastolic blood pressure 63 mm[Hg] Blaire Collier Other [employer] Other 10-17-2021 14:05-0500 Respiratory rate 18 /min Blaire Collier Other [employer] Other 10-17-2021 14:05-0500 SaO2% (BldA) [Mass fraction] 99 % Blaire Collier Other [employer] Other 10-17-2021 14:05-0500 Systolic blood pressure 99 mm[Hg] Blaire Collier Other [employer] Other 06-11-2019 12:08-0400 BMI (Body Mass Index) [...] Mass Index) 22.49 kg/m2 Yan Winslow -[facility] Work Phone: 06-03-2019 12:41-0400 Body weight 65 kg [facility] Work Phone: 06-03-2019 12:41-0400 BP Diastolic 68 mm[Hg] Yan Winslow [facility] Work Phone: Comment on above: Location: [place]; 06-03-2019 12:41-0400 BP Systolic 110 mm[Hg] [facility] Work Phone: Comment on above: Location: [place]; 06-03-2019 12:41-0400 BSA (Body Surface Area) 1.75 m2 Yan Winslow [facility] Work Phone: 06-03-2019 12:41-0400 Height 170 cm Yan [place] [facility] Work Phone: 06-03-2019 12:41-0400 Pulse (Heart Rate) 77 /min Yan Winslow [place] Work Phone: Encounters Encounter Date Encounter Type [...] Not Available Start: 05-23-2024 End: 05-23-2024 ambulatory [facility] Work Phone: Start: 05-23-2024 End: 05-23-2024 Patient encounter procedure [facility] Work Phone: Start: 05-09-2024 End: 05-09-2024 ambulatory FREDY JOHNSON Facility:[facility] Start: 05-09-2024 End: 05-09-2024 Patient encounter procedure FREYA JOHNSON [facility] Start: 04-10-2024 End: 04-10-2024 ambulatory [facility] Work Phone: Start: 04-10-2024 End: 04-10-2024 Patient encounter procedure [facility] Work Phone: Start: 2024 End: 2024 ambulatory JOBY MILLER Not Available Start: 12-25-2023 End: 12-26-2023 ambulatory [facility] Start: 11-08-2023 End: 11-08-2023 ambulatory ANA INGRAM Not Available Start: 08-07-2023 End: 08-07-2023 ambulatory Xiomara Aaron Other [employer] Other Start: 08-07-2023 Telephone encounter Xiomara Aaron [facility] Start: 07-24-2023 End: 07-24-2023 ambulatory Freya Ponce Other [employer] Other Start: 07-24-2023 Office outpatient vi sit 15 minutes Freya Ponce [facility] Start: 07-05-2023 End: 07-05-2023 ambulatory Freya Ponce Other [employer] Other Start: 07-05-2023 Telephone encounter Freya hemphill [facility] Start: 06-30-2023 End: 06-30-2023 ambulatory Freya Ponce Other [employer] Other Start: 06-30-2023 Office outpatient vi sit 15 minutes Freya Ponce [facility] Start: 05-10-2023 End: 05-10-2023 ambulatory Imad Asaad Other [employer] Other Start: 05-10-2023 Office outpatient ne w 45 minutes Imad Asaad [facility] Start: 04-26-2023 End: 04-26-2023 Patient encounter procedure FREYA JOHNSON [facility] Start: 03-24-2023 End: 03-24-2023 ambulatory Imad Asaad Other [employer] Other Start: 03-24-2023 Telephone encounter Imad Asaad [facility] Start: 03-16-2023 End: 03-16-2023 ambulatory Xiomara Aaron Facility:[facility] Start: 01-30-2023 End: 01-30-2023 ambulatory Imad Asaad Other [employer] Other Start: 01-30-2023 Telephone encounter Imad Asaad [facility] Start: 01-18-2023 ambulatory IMAD ASAAD Facility:[facility] Start: 01-09-2023 End: 01-10-2023 ambulatory IMAD ASAAD Facility:[facility] Start: 11-01-2022 End: 11-01-[address] BRIJESH KEATING . Facility:[facility] Start: 09-09-2022 End: 09-09-2022 ambulatory Xiomara Aaron Other [employer] Other Start: 09-09-2022 Office outpatient vi sit 15 minutes Xiomara MOON [facility] Start: 07-23-2022 End: 07-24-[address] XIOMARA AARON Facility: Start: 07-21-2022 Encounter for cervic al smear to confirm findings of recent normal smear following initial abnormal smear Imad Asaad Other [employer] Other Start: 07-21-2022 Gynecological examination normal Imad Asaad Other [employer] Other Start: 07-21-2022 History of abnormal cervical Papanicolaou smear Imad Asaad Other [employer] Other Start: 12-16-2021 End: 12-16-2021 ambulatory Shan Kerr Other [employer] Other Start: 12-16-2021 Telephone encounter Shan Kerr [facility] Start: 12-14-2021 End: 12-14-2021 ambulatory Shan Kerr Other [employer] Other Start: 12-14-2021 Telephone encounter Shan Kerr [facility] Start: 12-08-2021 End: 12-08-2021 Patient encounter procedure FREYA JOHNSON [facility] Start: 11-19-2021 End: 11-19-2021 ambulatory Shan Kerr Other [employer] Other Start: 11-19-2021 Telephone encounter Shan Kerr [facility] Start: 11-01-2021 End: 11-01-2021 ambulatory Shan Kerr Other [facility] Other Start: 11-01-2021 Office outpatient vi sit 25 minutes Shan Kerr [facility] Start: 10-20-2021 End: 10-20-2021 ambulatory Blaire Collier Other [facility] Other Start: 10-20-2021 Telephone encounter Blaire Collier [facility] [address] Start: 10-17-2021 End: 10-17-2021 ambulatory Blaire Collier Other [facility] Other Start: 10-17-2021 Office outpatient vi sit 15 minutes Blaire Collier [facility] [place] Start: 01-26-2021 Rx Change Melvin Roldan DO Work Phone: [facility] [address] Work Phone: Start: 01-25-2021 AUDIT Chance Lauren Work Phone: [facility] [address] Work Phone: Start: 05-19-2020 Patient encounter procedure Fely Fried [facility] [address] Work Phone: Start: 05-06-2020 Patient encounter procedure Fely Fried [facility] [address] Work Phone: Start: 04-02-2020 Patient encounter procedure Fely Fried [facility] [address] Work Phone: Start: 02-03-2020 Patient encounter procedure Fely Fried [facility] [address] Work Phone: Start: 10-25-2019 Patient encounter procedure Felyvanesa Monroy [facility] [address] Work Phone: Start: 06-11-2019 Patient encounter procedure Saba Alice [facility] Work Phone: Start: 06-03-2019 Patient encounter procedure Yan Winslow [facility] Work Phone: Start: 05-29-2019 Patient encounter procedure [place] [facility] [place]: Start: 05-29-2019 Telemedicine consultation with patient Yan Winslow [facility] Work Phone: Start: 12-05-2018 Patient encounter procedure Yan Winslow [facility] Work Phone: Start: 11-27-2018 Patient encounter procedure Yan Winslow [facility] Work Phone: Start: 11-07-2018 Patient encounter procedure Yan Winslow [facility] Work Phone: Start: 12-10-2013 End: 12-10-2013 Telephone encounter Larry Quinones Work Phone: Neurology Comment on above: Results Cancer cervix - screening done Chance Barnes MD Work Phone: [address] Work Phone: Comment on above: 05/19/2020; [...] Screening for malign ant neoplasm of colon [facility] Start: 11-01-2025 Screening for malign ant neoplasm of cervix [facility] Start: 01-15-2025 Screening for malign ant neoplasm of breast Mammogram [facility] Start: 08-23-2024 End: 08-23-2024 Patient encounter procedure 08/23/2024 9:00 AM EST Office Visit [facility] [address] [place] [address] Kim Burnette MD [address] [place] [address] [facility] Start: 07-17-2024 End: 07-17-2024 Patient encounter procedure 07/17/2024 9:40 AM EST Office Visit [facility] [address] [place] [address] Kim Burnette MD [address] [place] [address] Arrived [facility] Comment on above: Arrived Start: 06-19-2024 End: 06-19-2024 Patient encounter procedure 06/19/2024 10:30 AM EDT Office Visit [facility] [address] [place] [address] Kim Burnette MD [address] [facility] [address] [place] [address] [facility] Comment on above: Arrived Start: 05-23-2024 Patient referral [facility] Work Phone: Start: 04-21-2024 Influenza vaccination Influenza Vacc ine (#1) [facility] Start: 12-21-2021 Patient encounter procedure ANNUAL, Provider: Fely Monroy, Status: Pen, Time: 9:[address] Work Phone: Start: 04-21-2021 Influenza vaccination INFLUENZ A (Season Ended) [facility] Start: 2019 Screening for malign ant neoplasm of colon [facility] Start: 2019 SHINGRIX VACCINE (1 of 2) SHINGRIX VACCINE (1 of 2) [facility] Start: 2014 DIABETES SCREEN DIABETES SCREEN [facility] Start: 2014 LIPID SCREEN LIPID SCREEN [facility] Start: 2009 Mammography MAMMOGRAM [facility] Start: 1999 HPV TESTING HPV TESTING [facility] Start: 1999 Screening for malign ant neoplasm of cervix HPV/Cotest [facility] Start: 1990 PAP TESTING PAP TESTING [facility] Start: 1988 Urine microalbumin profile DTAP,TDAP,TD (1 - Tdap) [facility] Start: 1987 HEPATITIS C SCREENING HEPATITIS C SC REENING [facility] Start: 1987 HIV SCREENING HIV SCREENING [facility] Start: 1981 Adult depression screening assessment DEPRESSION SCREENING [facility] Start: 1969 Screening for malign ant neoplasm of colon [facility] Patient referral [facility] Work Phone: Immunizations Immunization Date Immunization Notes Care Provider Fa cility 07-12-2024 influenza virus vaccine, unspecified formulation Kmi Burnette MD Work Phone: [facility] 04-26-2023 Influenza, injectable, Madin [place] Canine Kidney, preservative free, quadrivalent Kim Burnette MD Work Phone: [facility] 04-26-2023 influenza virus vaccine, unspecified formulation Kim Burnette MD Work Phone: [facility] 05-30-2022 influenza virus vaccine, split virus (incl. purified surface antigen) Imad Asaad Other [facility] Other 05-30-2022 influenza virus vaccine, unspecified formulation [facility] 05-30-2022 Influenza, injectable, Madin Lisbeth Canine Kidney, preservative free, quadrivalent Kim Burnette MD Work Phone: [facility] 05-30-2022 Prevnar 20 Imad Asaad Other [facility] 03-01-2021 zoster vaccine recombinant Kim Burnette MD Work Phone: [facility] 12-17-2020 SARS-CoV-2 (COVID-19 ) mRNA BNT-162b2 vax [facility] 11-25-2020 SARS-CoV-2 (COVID-19 ) mRNA BNT-162b2 vax [facility] 11-12-2008 hepatitis B vaccine, pediatric or pediatric/adolescent dosage Kim Burnette MD Work Phone: [facility] 04-15-2008 hepatitis B vaccine, pediatric or pediatric/adolescent dosage Kim Burnette MD Work Phone: [facility] 03-18-2008 hepatitis B vaccine, pediatric or pediatric/adolescent dosage Kim Burnette MD Work Phone: [facility] 03-18-2008 measles, mumps and rubella virus vaccine Kim Burnette MD Work Phone: [facility] 03-18-2008 tetanus toxoid, reduced diphtheria toxoid, and acellular pertussis vaccine, adsorbed Kim Burnette MD Work Phone: [facility] 04-06-1976 trivalent poliovirus vaccine, live, oral Kim Burnette MD Work Phone: [facility] 04-09-1974 diphtheria, tetanus toxoids and pertussis vaccine Kim Burnette MD Work Phone: [facility] 07-06-1971 diphtheria, tetanus toxoids and pertussis vaccine Kim Burnette MD Work Phone: [facility] 07-06-1971 trivalent poliovirus vaccine, live, oral Kim Burnette MD Work Phone: [facility] 1969 diphtheria, tetanus toxoids and pertussis vaccine Kim Burnette MD Work Phone: [facility] 1969 trivalent poliovirus vaccine, live, oral Kim Burnette MD Work Phone: [facility] 1969 diphtheria, tetanus toxoids and pertussis vaccine Kim Burnette MD Work Phone: [facility] 1969 diphtheria, tetanus toxoids and pertussis vaccine Kim Burnette MD Work Phone: [facility] 1969 trivalent poliovirus vaccine, live, oral Kim Burnette MD Work Phone: [facility] NEGATED: Highlighted row has not occurred!12-08-2021 influenza virus vaccine, unspecified formulation FREYA JOHNSON [facility] Payers Date Payer Category Payer Self-pay 2021 Unknown [id number] 2020 [facility] [id number] 2011 Private Health Insurance SHEEBA UGALDE OAP [id number] 2011-2015 PPO [id number] 2008 Self-pay SELF PAY HSP/MED ICAL SELF PAY [id number] 2008-2015 SELF PAY Indemnity [id number] 1969 Unknown [id number] .[id number] 1969 Unknown [id number] .[id number] 1969 Unknown [id number] [id number] .[id number] 1969 Unknown [id number] [id number] .[id number] 1969 Unknown [id number] [id number] .[id number] 1969 Unknown [id number] [id number] .[id number] 1969 Unknown [id number] [id number] .2.1259 1969 Unknown [id number] [id number] .2.1259 1969 Unknown [id number] [id number] .[id number] 1969 Unknown [id number] .[id number] 1959 [facility] [id number] Unknown Unknown [id number] .2.531 Social History Date Type Detail Facility Assertion Unknown if ever smoked [facility] Work Phone: Start: 08-01-2013 End: 06-19-2024 Tobacco smoking status NHIS Never smoker [facility] Start: 08-01-2013 End: 07-17-2024 Alcohol intake Current drinker of alcohol (finding) [facility] Start: 07-30-2012 Alcohol Comment [facility]ional [facility] Start: 1970 Sex Assigned At Not on file [facility] Start: 11-06-2023 End: 06-19-2024 Non-smoker Non-smoker [facility] 35 0 [facility] Phone: Tobacco smoking status Never [facility] Start: 11-06-2023 End: 06-19-2024 Sex Assigned At Female [facility] [employer] Other Start: 1970 Sex Assigned At Female [facility] Start: 05-30-2024 Alcoholic beverage intake Ex-drinker (finding) [facility] Start: 11-06-2023 Alcohol Comment occasional [facility] Start: 06-19-2024 Tobacco use and exposure Smokeless tobacco non-user [facility] Functional Status Date Assessment Result Facility 05-09-2024 Functional Status N/A [facility] 04-26-2023 Functional Status N/A [facility] NEGATED: Highlighted row Functional performance Functional status health issues are not documented Disease [facility] Work Phone: Mental Status Date Assessment Result Facility NEGATED: Highlighted row Cognitive function [Interpretation] Cognitive status health issues are not documented [facility] Work Phone: Clinical Notes 12-12-2013 to 07-17-2024 [...] obs d/w pt. documented in this encounter [facility] 06-19-2024 History of Present illness Narrative [...] bedtime Check RAST documented in this encounter [facility] 05-09-2024 Hospital Discharge instructions Patient Education [...] (122 g) has 5 g of fiber. [place] sprouts (cooked) cup (78 g) has 4 [...] (155 g) has 1.4 g of fiber. [place] 1 small (154 g) has 3.7 g [...] (77.5 g) has 2.2 g of fiber. [place] (canned or frozen) cup (82.5 g) has [...] (70 g) has 3.2 g of fiber. [place] tortilla one 6-inch (15 cm) tortilla has 1.5 g of fiber. Meats and other proteins Almonds cup or 1 oz (28 g) has 3.5 g of fiber. [place] seeds in shell cup or oz (11.5 [...] (35 g) has 0.5 g of fiber. [place] (slices) cup (60 g) has 0.3 g [...] provider. Document Revised: 12/10/2020 Document Reviewed: 12/10/2020 [employer] Patient Education 2023 Plays.IO. 05/09/2024 10:49:23 High-Fiber Eating Plan High-Fiber Eating [...] Bulgur wheat. Millet. Quinoa. Bran muffins. Popcorn. [place]berg wafer crackers. Meats and other proteins [place] beans, kidney beans, and dumont beans. Soybeans. [...] Cream cheese. Sour cream. Fats and oils [place]. Beverages Soft drinks. Other foods Cakes and [...] provider. Document Revised: 12/10/2020 Document Reviewed: 12/10/2020 [employer] Patient Education 2023 Plays.IO. 05/08/2024 15:12:44 Overactive Bladder, Adult Overactive Bladder, [...] your health care provider. General instructions Take wtyv-dju-ocqhadh and prescription medicines only as told by [...] provider. Document Revised: 04/26/2021 Document Reviewed: 04/26/2021 [employer] Patient Education 2023 Plays.IO. Follow Up Care 04/26/2023 13:57:10 With:FREYA JOHNSON PA-C, URL Address: When:1 year [facility] 05-09-2024 Note Patient Education Gastroenterology Fiber Content [...] g) has 5 g of fiber. ? [place] sprouts (cooked) ? ? cup (78 g) [...] g) has 1.4 g of fiber. ? [place] ? 1 small (154 g) has 3.7 [...] g) has 2.2 g of fiber. ? [place] (canned or frozen) ? ? cup (82.5 [...] g) has 3.2 g of fiber. ? [place] tortilla ? one 6-inch (15 cm) tortilla has 1.5 g of fiber. Meats and other proteins ? Almonds ? ? cup or 1 oz (28 g) has 3.5 g of fiber. ? [place] seeds in shell ? ? cup or [...] g) has 0.5 g of fiber. ? [place] (slices) ? ? cup (60 g) has 0.3 g of fiber. ? Celery ? 1 stalk (40 g) has 0.1 g of fiber. Grains ? Flour tortilla ? one 6-inch (15 (more content not included)... [facility] 07-24-2023 Evaluation note Encounter Date Diagnosis [...] understanding and is agreeable to treatment plan. [facility] Other 11-15-2023 Evaluation note* Encounter Date Diagnosis Assessment Notes Treatment Notes Treatment Clinical Notes Jun, Acute vaginitis (ICD-10 - N76.0) [facility] 11-10-2023 Evaluation note* Encounter Date Diagnosis [...] verbalizes understanding and agrees with tx plan. [facility] Other 09-20-2023 Evaluation note* Encounter Date Diagnosis Assessment Notes Treatment Notes Treatment Clinical Notes Apr, Gluten intolerance (ICD-10 - K90.0) [facility] 09-06-2023 Hospital Discharge instructions Patient Education 04/26/2023 13:55:04 Urinary Tract Infection, Adult, Qcmp-la-Gjfv Urinary Tract Infection, Adult A urinary tract [...] Follow these instructions at home: Medicines Take gjsz-skn-iwzkbop and prescription medicines only as told by [...] provider. Document Revised: 03/19/2021 Document Reviewed: 03/19/2021 [employer] Patient Education 2022 Plays.IO. Follow Up Care 03/30/2022 13:19:45 With:FREYA JOHNSON PA-C, URL Address: [address] [place] [address] When:Within 1 Year(s) [facility] 08-04-2023 Evaluation note* Encounter Date Diagnosis Assessment Notes Treatment Notes Treatment Clinical Notes Mar, Change in bowel habits (ICD-10 - R19.4) Mar, Fecal incontinence (ICD-10 - R15.9) Mar, Bloating (ICD-10 - R14.0) Mar, Diarrhea, unspecified (ICD-10 - R19.7) [facility] Other 01-20-2023 Evaluation note* Encounter Date Diagnosis Assessment Notes Treatment Notes Treatment Clinical Notes Aug, Left medial knee pain (ICD-10 - M25.562) Discussed options. Handwrote order for pt. Gave exercises for stretching at home. Will call if no improvment for a potential ortho referral. Discussed NSAIDs and heat for improvement [facility] Other 04-20-2022 Hospital Discharge instructions Patient Education [...] fried and sweet foods. General instructions Take fcjl-ouw-vggodzl and prescription medicines only as told by [...] 06/03/2010 Document Revised: 11/28/2019 Document Reviewed: 08/23/2018 [employer] Patient Education 2019 Plays.IO. Follow Up Care 11/11/2021 12:54:29 With:ALEX DANIEL, FREYA Hunter, URL Address: [address] [place] [address] When:3 months [facility] [employer] 03-14-2022 Evaluation note* Encounter Date Diagnosis Assessment Notes Treatment Notes Treatment Clinical Notes Oct, Irritable bowel syndrome with both constipation and diarrhea (ICD-10 - K58.2) Oct, Exocrine pancreatic insufficiency (ICD-10 - K86.81) SAMPLES OF ZENPEP GIVEN TO PT PT TO REPORT PROGRESS Oct, Fecal incontinence (ICD-10 - R15.9) Oct, GERD without esophagitis (ICD-10 - K21.9) [facility] Other 02-27-2022 Evaluation note* Encounter Date Diagnosis [...] infection (UTI) home care material was printed [facility] Other 09-29-2020 NoteAccession #: [id number] Date of Procedure: 05/19/2020 Pathologist: STEF GREEN [...] verified by the Molecular Diagnostic Laboratory at [facility]. The lab is certified under the Clinical Laboratory Amendments of 1988 (CLIA 88) as qualified to perform high complexity clinical laboratory testing. This specimen has been analyzed by the [employer] Imaging System ([employer] an automated imaging and review system, which assists the laboratory in evaluating cells on ThinPrep Pap tests. Following automated imaging, selected vann from every slide were reviewed by a deputy insurance commissioner and/or pathologist. Electronically Signed Out By STEF [...] Source of Specimen A: THINPREP PAP VAGINAL [facility] Department of Pathology [id number] [place], [place] [id number] Medical CenterComment on above:Performed By: #### C #### [facility] Cytology [address] [place] [address] [phone] Miscellaneous Notes* Telephone Encounter - Bridgette Owens [...] cap weekly for 10 weeks. Then, take sgwo-ffv-rwydhyb Vitamin D3 supplements of at least 1,000 units daily. The following approved medication requests have been transmitted electronically. Signed Prescriptions Disp Refills cholecalciferol, Vitamin D3, 50,000 unit cap capsule 10 capsule 0 Si cap per week x 10 weeks. ELADIO: No Authorizing Provider: LARRY QUINONES DO [facility] note Future Appointments Appointment Date:03/16/2022 08:30:00 AM Scheduled Provider:FREYA JOHNSON PA-C Location:[facility] Appointment Type:URO Office Visit 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 Other Evaluation noteNo assessment information available [facility] Work Phone: [email or web address] note* Diagnosis Onset Date Resolution Status Sunburn of first degree acut e Chronic sinusitis acute [facility] Work Phone: [email or web address] note* Diagnosis Chronic sinusitis, unspecified location- Primary [...] Foot Surgery right Hospitalization History see above [facility] Other [facility] general Narrative - Reported* Type Description Date Medical History Dyspnea Medical History Fatigue Medical History Abdominal bloating Medical History Abdominal pain, RUQ Medical History IBS (irritable bowel syndrome) Medical History Hypothyroidism (acquired) Medical History Acid reflux Surgical History tonsillectomy Surgical History D&C Surgical History hysterectomy Surgical History Foot Surgery right Hospitalization History SEE SURGICAL HX [facility] Other [facility] general Narrative - Reported* Type Description Date [...] Surgery right Hospitalization History SEE SURGICAL HX [facility] Other History general Narrative - Reported* Type [...] Repair 07/17/23 Hospitalization History SEE SURGICAL HX [facility] Other Hospital course Narrative No data available for this section [facility] Hospital Discharge instructionsAmbulatory Orders* Referral to ENT Time Frame: 05/23/24, Location: None Selected [facility] Work Phone: Progress note No data available for this section [facility] reason for visit Narrativeknee troubles, possible [facility]No[facility] [employer] Other Summary Purpose Family History uncle Name [...] tabares on fe et Chief Complaint possible atbares on fe et dry cough Reason for Visit Sunburn of first deg ree Chronic sinusitis Additional Source Comments INFORMATION SOURCE (unrecogn ized section and content) DATE CREATED AUTHOR 02/14/2018 [facility] DATE CREATED AUTHOR AUTHOR'S ORGANIZ ATION 01/10/2019 [facility] DATE CREATED AUTHOR AUTHOR'S ORGANIZ ATION 01/17/2019 [facility] DATE CREATED AUTHOR AUTHOR'S ORGANIZ ATION 12/16/2020 [facility] DATE CREATED AUTHOR AUTHOR'S ORGANIZ ATION 12/16/2020 [employer] DATE CREATED AUTHOR AUTHOR'S ORGANIZ ATION 01/12/2021 [facility] DATE CREATED AUTHOR AUTHOR'S ORGANIZ ATION 01/27/2023 [facility] DATE CREATED AUTHOR AUTHOR'S ORGANIZ ATION 03/23/2023 [facility] DATE CREATED AUTHOR AUTHOR'S ORGANIZ ATION 12/26/2023 [facility] DATE CREATED AUTHOR AUTHOR'S ORGANIZ ATION 05/11/2024 [facility] DATE CREATED AUTHOR AUTHOR'S ORGANIZ ATION 07/20/2024 [facility] EPIC Source Comments (unrecognize d section and content) In the event this informatio n is protected by the Federal Confidentiality of Alcohol and Drug Abuse Patient Records regulations: The Federal rules restrict any use of the information to criminally investigate or prosecute any alcohol or drug abuse patient.[facility] Reason for Visit (unrecogniz ed section [...] May 23, 2024 End: May 23, 2024 Dining Room Attendant Relationship Specialty Start Date End Date Xiomara Aaron MD [address] [place] [id number] PCP - General Family Medicine 11/08/23 Dining Room Attendant Relationship Specialty Start Date End Date Xiomara Aaron MD [address] [place] [address] PCP - General Family Medicine 11/08/23 Dining Room Attendant Relationship Specialty Start Date End Date Xiomara Aaron MD [address] [place] [address] PCP - General Family Medicine 11/08/23 Dining Room Attendant Relationship Specialty Start Date End Date Xiomara Aaron MD [address] [place] [address] PCP - General Family Medicine 11/08/23 Dining Room Attendant Relationship Specialty Start Date End Date Xiomara Aaron MD [address] [place] [address] PCP - General Family Medicine 11/08/23 Goals [...] BE BASED ON THE PRIMARY CLINICAL RECORDS. [facility]. provides no warranty or guarantee of the accuracy or completeness of information in this document.
[2024-08-16 18:43] VITALS: BP 112/69; PULSE 82; TEMP 36.9; O2SAT 97; BMI 22.1
[2024-08-16 19:22] VITALS: BP 108/73; PULSE 79; O2SAT 97
--- NOTE | 2024-08-16 19:24 | PC.NURSE ---
Bilateral dried blood at nare. Right nare has moist blood in canal, left side has dried blood in canal. No bleeding noted at this time
--- NOTE | 2024-08-16 19:32 | ED_ITS ---
HPI - Epistaxis General Chief Complaint: Epistaxis Stated Complaint: POST OP YESTERDAY-NOSE BLEEDING Time Seen by Provider: 08/16/24 19:16 Source: patient Mode of arrival: walk-in Limitations: no limitations History of Present Illness HPI Narrative: 54-year-old female presents to the emergency department for intermittent right sided nasal bleeding. She is postop day #1 from bilateral inferior turbinate reduction performed at this hospital by Dr. Romo yesterday. She has been using the gauze and is changed because 15 times since yesterday. No injury. Related Data Home Medications ?Medication ?Instructions ?Recorded ?Confirmed albuterol sulfate 90 mcg/actuation 2 inh inhalation Q4H PRN shortness 08/05/24 08/15/24 aerosol inhaler of breath or wheezing estradiol 1 mg tablet 1 mg PO DAILY 08/05/24 08/15/24 fluticasone propionate 50 1 spray intranasal DAILY 08/05/24 08/15/24 mcg/actuation nasal spray,suspension levothyroxine 88 mcg tablet 88 mcg PO DAILY 08/05/24 08/15/24 loratadine 10 mg tablet (Claritin) 10 mg PO DAILY 08/05/24 08/15/24 montelukast 10 mg tablet 10 mg PO QPM 08/05/24 08/15/24 multivitamin (Daily Multi-Vitamin 1 tab PO DAILY 08/05/24 08/15/24 tablet) oxybutynin chloride 5 mg 5 mg PO DAILY 08/05/24 08/15/24 tablet,extended release 24 hr pantoprazole 40 mg tablet,delayed 40 mg PO DAILY 08/05/24 08/15/24 release vitamin B complex 1 tab PO DAILY 08/05/24 08/15/24 Allergies Allergy/AdvReac Type Severity Reaction Status Date / Time erythromycin base Allergy Vomiting Verified 08/05/24 09:09 Review of Systems ROS Narrative A ten point review of systems is negative except as noted above. [facility] Medical History (Updated 08/16/24 @ 19:31 by Tobi Olvera MD) Urinary tract infection ?N39.0 - Urinary tract infection, site not specified (ICD-10) IBS (irritable bowel syndrome) ?K58.9 - Irritable bowel syndrome, unspecified (ICD-10) Osteopenia ?M85.80 - Other specified disorders of bone density and structure, unspecified site (ICD-10) Hypertrophy of inferior nasal turbinate ?J34.3 - Hypertrophy of nasal turbinates (ICD-10) Migraine ?G43.909 - Migraine, unspecified, not intractable, without status migrainosus (ICD-10) Overactive bladder ?N32.81 - Overactive bladder (ICD-10) GERD (gastroesophageal reflux disease) ?K21.9 - Gastro-esophageal reflux disease without esophagitis (ICD-10) Hypothyroidism ?E03.9 - Hypothyroidism, unspecified (ICD-10) Postoperative nausea and vomiting ?R11.2 - Nausea with vomiting, unspecified (ICD-10) ?Z98.890 - Other specified postprocedural states (ICD-10) Surgical History (Updated 08/05/24 @ 09:20 by Dayami Anne NP) History of colonoscopy ?Z98.890 - Other specified postprocedural states (ICD-10) History of foot surgery ?Z98.890 - Other specified postprocedural states (ICD-10) History of laparoscopy ?Z98.890 - Other specified postprocedural states (ICD-10) History of dilation and curettage ?Z98.890 - Other specified postprocedural states (ICD-10) History of tonsillectomy ?Z90.89 - Acquired absence of other organs (ICD-10) History of hernia repair ?Z98.890 - Other specified postprocedural states (ICD-10) ?Z87.19 - Personal history of other diseases of the digestive system (ICD-10) History of hysterectomy ?Z90.710 - Acquired absence of both cervix and uterus (ICD-10) Family History (Updated 08/05/24 @ 09:20 by Dayami Anne NP) Other Family history of aneurysm Family history of cancer Family history of hypertension Family history of myocardial infarction Social History (Updated 08/05/24 @ 09:15 by Dayami Anne NP) Within the past year, how often did you have a drink containing alcohol: 2-4 times a month Smoking status: Never smoker Non-prescribed substance use: denies use 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 General: The patient appears well and in no apparent distress. Patient is resting comfortably on cart. Skin: Warm, dry, no pallor noted. There is no rash noted. Head: Normocephalic, atraumatic Eye: Normal conjunctiva, no drainage Ears, Nose, Mouth, and Throat: oral mucosa is moist. There is gauze beneath the nares. There is a few millimeters in diameter area of blood on the right side. After removal there is no active bleeding. Cardiovascular: Regular Rate and Rhythm Respiratory: Patient is in no distress, no accessory muscle use Back: non-tender GI: Nontender Musculoskeletal: The patient has no evidence of calf tenderness, no pitting edema, symmetrical pulses noted bilaterally Neurological: A&O, normal speech Psychiatric: Cooperative Constitutional Vital Signs, click to edit/add: Last Vital Signs Temp 98.4 F 08/16/24 18:43 Pulse 79 08/16/24 19:22 Resp 16 08/16/24 19:22 BP 108/73 08/16/24 19:22 Pulse Ox 97 08/16/24 19:22 O2 Del Method Room Air 08/16/24 19:22 Course Vital Signs Vital signs: Vital Signs Temperature 98.4 F 08/16/24 18:43 Pulse Rate 82 08/16/24 18:43 Respiratory Rate 18 08/16/24 18:43 Blood Pressure 112/69 08/16/24 18:43 Pulse Oximetry 97 08/16/24 18:43 Temperature 98.4 F 08/16/24 18:43 Pulse Rate 79 08/16/24 19:22 Respiratory Rate 16 08/16/24 19:22 Blood Pressure 108/73 08/16/24 19:22 Pulse Oximetry 97 08/16/24 19:22 Oxygen Delivery Method Room Air 08/16/24 19:22 MDM - Epistaxis MDM Narrative Medical decision making narrative: Case is discussed with Dr. Romo. He recommends Afrin and the patient continuing to change the gauze as needed. The patient is being sent home with more gauze and tape. She has a follow-up appointment in a week with him. Treatment diagnosis and follow-up were discussed with the patient. Differential Diagnosis Differential diagnosis: Likely anterior epistaxis and posterior epistaxis Discharge Plan Discharge Chief Complaint: Epistaxis Clinical Impression: Post-operative hemorrhage Patient Disposition: Home, Self-Care Time of Disposition Decision: 19:31 Condition: Good Mode of Transportation: Private Vehicle Prescriptions / Home Meds: No Action albuterol sulfate 90 mcg/actuation HFA aerosol inhaler 2 inh INHALATION Q4H PRN (Reason: shortness of breath or wheezing) estradiol 1 mg tablet 1 mg PO DAILY levothyroxine 88 mcg tablet 88 mcg PO DAILY montelukast 10 mg tablet 10 mg PO QPM oxybutynin chloride 5 mg tablet extended release 24hr 5 mg PO DAILY pantoprazole 40 mg tablet,delayed release (DR/EC) 40 mg PO DAILY fluticasone propionate 50 mcg/actuation spray,suspension 1 spray intranasal DAILY Rx Instructions: administer into each nostril loratadine [Claritin] 10 mg tablet 10 mg PO DAILY vitamin B complex Tablet 1 tab PO DAILY multivitamin [Daily Multi-Vitamin] Tablet 1 tab PO DAILY Print Language: Serbian Referrals: Tavia Barnard MD [Primary Care Provider] - 1 week
== END 2024-08-16 19:51 | disposition home or self-care (01) ==
PROVIDERS: Emergency Provider Emergency Medicine; PCP Family Medicine
DX: J95.830 Postprocedural hemorrhage of a respiratory system organ or structure following a respiratory system procedure (principal); Z90.710 Acquired absence of both cervix and uterus
CPT/HCPCS: 99283

== ENCOUNTER 2024-10-18 09:52 | Outpatient (OUT) | payer BC, SELFPAY ==
[2024-10-18 10:25] LABS: Basophils Absolute Auto 0.1 10^3/uL (0.0-0.1); Basophils Percent Auto 0.9 % (0.2-2.0); Eosinophils Absolute Auto 0.2 10^3/uL (0.0-0.7); Eosinophils Percent Auto 2.9 % (0.9-7.0); Hematocrit 40.7 % (36.0-48.0); Hemoglobin 13.4 g/dL (12.0-16.0); Immature Granulocytes Abs Auto 0.01 10^3/uL (0.00-0.03); Immature Granulocytes Pct Auto 0.2 % (0.0-0.5); Lymphocytes Absolute Auto 1.9 10^3/uL (1.2-3.8); Lymphocytes Percent Auto 33.2 % (20.5-60.0); Mean Corpuscular HGB Conc 32.9 g/dL (29.9-35.2); Mean Corpuscular Hemoglobin 31.3 pg (26.7-34.0); Mean Corpuscular Volume 95.1 fL (81.0-99.0); Mean Platelet Volume 9.7 fL (9.5-13.5); Monocytes Absolute Auto 0.3 10^3/uL (0.3-0.8); Monocytes Percent Auto 5.9 % (1.7-12.0); Neutrophils Absolute Auto 3.2 10^3/uL (1.4-6.5); Neutrophils Percent Auto 56.9 % (43.0-75.0); Platelet Count 241 10^3/uL (150-450); Red Blood Count 4.28 10^6/uL (4.20-5.40); White Blood Count 5.6 10^3/uL (4.0-11.0)
[2024-10-18 10:56] LABS: Free T4 1.01 ng/dL (0.76-1.46)
[2024-10-18 11:05] LABS: Anion Gap 9.9; BUN Creatinine Ratio 15.3; Calcium 9.2 mg/dL (8.5-10.1); Chloride 106 mmol/L (98-107); Estimated GFR (African America >60 (>=60 mL/min/1.73m^2); Estimated GFR (Non-African Ame >60 (>=60 mL/min/1.73m^2); Glucose 76 mg/dL (74-106); Potassium 3.9 mmol/L (3.5-5.1); Sodium 142 mmol/L (136-145); Thyroid Stimulating Hormone 1.612 uIU/mL (0.358-3.740)
== END 2024-10-18 09:53 | disposition home or self-care (01) ==
LOC: LAB 09:53
PROVIDERS: PCP Family Medicine; Visit Provider Family Medicine
DX: Z00.00 Encounter for general adult medical examination without abnormal findings (principal); E03.9 Hypothyroidism, unspecified; R53.82 Chronic fatigue, unspecified
CPT/HCPCS: 36415; 80048; 84439; 84443; 85025

== ENCOUNTER 2025-01-15 09:23 | Outpatient (OUT) | payer BC, SELFPAY ==
--- NOTE | 2025-01-15 09:27 | MM_ITS ---
Patient Name: NICK WRIGHT MR#: [id number] : 1970 Exam Date: 01/15/2025 Ordering Doctor: DR BRIJESH KEATING . RADIOLOGY REPORT PROCEDURE: MM TOMOSYNTHESIS SCREENING BI COMPARISON: MM TOMOSYNTHESIS SCREENING BI, 01/12/2024. MG MAMM SCREEN 3D SERGEI CAD, 01/09/2023. MG MAMM SCREEN 3D SERGEI CAD, 01/05/2022. MG MAMM SCREEN SERGEI W CAD, 06/22/2017. INDICATIONS: Screening Calculator Name NCI Breast Cancer Risk Assessment Tool 5 Year Breast Cancer Risk 1.10% Lifetime Breast Cancer Risk 7.40% Personal Breast Cancer No Personal Ovarian Cancer No Treatments None Family Cancers None LOCATION: [facility] BREAST COMPOSITION: The breasts are heterogeneously dense,which may obscure small masses. FINDINGS: RIGHT BREAST: No significant suspicious finding. Benign-appearing calcifications are present. Benign-appearing lymph nodes are noted along the chest wall. LEFT BREAST: No significant suspicious finding. Benign-appearing calcifications are present. Benign appearing lymph nodes are noted along the chest wall. DIAGNOSTIC CATEGORY 2--BENIGN FINDING: RECOMMENDATIONS: ROUTINE MAMMOGRAM AND CLINICAL EVALUATION IN 12 MONTHS. PLEASE NOTE: A NORMAL MAMMOGRAM DOES NOT EXCLUDE THE POSSIBILITY OF BREAST CANCER. A CLINICALLY SUSPICIOUS PALPABLE LUMP SHOULD BE BIOPSIED. Dictated by: Blayne Jean Baptiste MD on 01/15/2025 at 10:44 Approved by: Blayne Jean Baptiste MD on 01/15/2025 at 10:47
== END 2025-01-15 09:24 | disposition home or self-care (01) ==
LOC: MAMMO 09:23
PROVIDERS: PCP Family Medicine; Visit Provider Obstetrics & Gynecology
DX: Z12.31 Encounter for screening mammogram for malignant neoplasm of breast (principal)
CPT/HCPCS: 77063; 77067

== ENCOUNTER 2025-07-21 14:50 | Outpatient (REF) | payer BC, SELFPAY ==
--- OUTSIDE RECORDS SUMMARY | 2025-07-21 11:00 | XMS_ITS | Encounter Summary ---
Author Organization [facility] Address [address] [place] [address] Care Team Providers Care Waiter/Waitress Bar Name Role Phone Tavia Barnard MD Primary Care Provider [phone] Reason for Visit * ReasonCommentsGynecologic Exam Encounter Details DateTypeDepartmentCare Team (Latest Contact Info)Ndxieqauflf22/01/2025 11:00 AM ESTProcedure Visit [facility] [address] [address] Mary Suh PA [address] [place], [facility] Well woman exam with routine gynecological exam; H/O: hysterectomy; Osteoporosis, post-menopausal; Encounter for screening mammogram for malignant neoplasm of breast; Menopausal and female climacteric states; Asymptomatic menopausal state; Heartburn Social History Tobacco UseTypesPacks/DayYears UsedDateSmoking Tobacco: NeverSmokeless Tobacco: NeverAlcohol UseStandard Drinks/WeekCommentsYes1 (1 standard drink = 0.6 oz pure alcohol)occasionalCommentsNoSex and Gender InformationValueDate Recorded Sex Assigned at BirthNot on fileLegal GjaSgfqau92/15/2023 11:47 PM EDTGender IdentityNot on fileSexual OrientationNot on filedocumented as of this encounter Last Filed Vital Signs Vital SignReadingTime TakenCommentsBlood Hpcbkqms841/8012 11:15 AM EST Pulse--Temperature--Respiratory Rate--Oxygen Saturation--Inhaled Oxygen Concentration--Iughsn11.5 kg (151 lb)07/21/2025 11:15 AM ESTHeight--Body Mass Index23.301 8:48 AM ESTdocumented in this encounter Progress Notes * Franciziggy Tang MA - 07/21/2025 11:00 AM EST Reason for Appointment: Patient ID: Patty Gaxiola is a 55 y.o. female who presents for Gynecologic Exam Patient presents today for Annual Exam. MEDICATIONS Current Outpatient Medications Medication Instructions albuterol HFA 90 mcg/act inhaler 1 puff, As needed amoxicillin-clavulanate (Augmentin) 875-125 MG tablet 875 mg, Oral, 2 times daily Cyanocobalamin (Vitamin B 12) 100 MCG lozenge 1 each, Daily estradiol (ESTRACE) 1 mg, Oral, Daily estradiol (VAGIFEM) 10 mcg, Vaginal, 2 times weekly levothyroxine (SYNTHROID, LEVOXYL) 88 mcg, Daily before breakfast montelukast (SINGULAIR) 10 mg, Oral, Nightly Multiple Vitamins-Minerals (MULTIVITAMIN ADULT, MINERALS, PO) 1 each, Daily oxybutynin XL (DITROPAN-XL) 5 mg, Daily pantoprazole (PROTONIX) 40 mg, Oral, Daily ALLERGIES Allergies Allergen Reactions Erythromycin Base Other Reaction(s): Rash, vomiting Erythromycin GI intolerance and Nausea And Vomiting Other Reaction(s): GI Disturbance, Vomit Other reaction(s): Vomit PROBLEMS Active Ambulatory Problems Diagnosis Date Noted Chronic sinusitis 06/18/2024 Bacterial sinusitis 06/18/2024 Asymptomatic menopausal state 10/27/2021 Allergic rhinitis 06/18/2024 Abdominal pain 06/18/2024 Hypertrophy of both inferior nasal turbinates 07/17/2024 Resolved Ambulatory Problems Diagnosis Date Noted No Resolved Ambulatory Problems Past Medical History: Diagnosis Date Abdominal bloating BMI 23.0-23.9, adult Breast cancer screening by mammogram Cervical high risk HPV (human papillomavirus) test positive Encounter by telehealth for suspected COVID-19 Encounter for gynecological examination (general) (routine) without abnormal findings Gastro-esophageal reflux disease without esophagitis Hiatal hernia Hypothyroidism Irritable bowel syndrome (IBS) Other fatigue Overactive bladder Pap smear of cervix to confirm normal smear following abnormal smear Post menopausal syndrome RUQ pain Screening for human papillomavirus (HPV) UTI symptoms Vitamin D deficiency HISTORY PAST MEDICAL HISTORY SOCIAL HISTORY Past Medical History: Diagnosis Date Abdominal bloating Abdominal pain Bacterial sinusitis BMI 23.0-23.9, adult Breast cancer screening by mammogram Cervical high risk HPV (human papillomavirus) test positive Encounter by telehealth for suspected COVID-19 Encounter for gynecological examination (general) (routine) without abnormal findings Gastro-esophageal reflux disease without esophagitis Hiatal hernia Hypothyroidism Irritable bowel syndrome (IBS) Other fatigue Overactive bladder Pap smear of cervix to confirm normal smear following abnormal smear Post menopausal syndrome RUQ pain Screening for human papillomavirus (HPV) UTI symptoms Vitamin D deficiency Social History Tobacco Use Smoking status: Never Smokeless tobacco: Never Substance Use Topics Alcohol use: Yes Alcohol/week: 1.0 - 2.0 standard drink of alcohol Types: 1 - 2 Standard drinks or equivalent per week Comment: occasional Drug use: Never FAMILY HISTORY Family History Problem Relation Name Age of Onset No Known Problems Mother No Known Problems Father SURGICAL HISTORY Past Surgical History: Procedure Laterality Date ADENOIDECTOMY DILATION AND CURETTAGE OF UTERUS DIAGNOSTIC LAPAROSCOPY a few FOOT SURGERY right reconstructive surgery HYSTERECTOMY LAPAROSCOPY REPAIR HIATAL HERNIA 06/21/2023 TONSILLECTOMY TURBINATE RESECTION 08/15/2024 Dr Gallagher REVIEW OF SYSTEMS Review of Systems: Review of Systems Constitutional: Negative. HENT: Negative. Eyes: Negative. Respiratory: Negative. Cardiovascular: Negative. Gastrointestinal: Negative. Genitourinary: Negative. Musculoskeletal: Negative. Skin: Negative. Neurological: Negative. All other systems reviewed and are negative. Hematological: Negative. Endocrine: Negative. Allergic/Immunologic: Negative. OBJECTIVE Objective: Physical Exam Constitutional: Appearance: Normal appearance. She is well-developed. Genitourinary: Vulva normal. Breasts: Breasts are soft. Right: Normal. Left: Normal. Cardiovascular: Rate and Rhythm: Normal rate and regular rhythm. Pulmonary: Effort: Pulmonary effort is normal. Breath sounds: Normal breath sounds. Abdominal: General: Bowel sounds are normal. There is no distension. Palpations: Abdomen is soft. Tenderness: There is no abdominal tenderness. There is no guarding or rebound. Musculoskeletal: General: No swelling. Normal range of motion. Right lower leg: No edema. Left lower leg: No edema. Neurological: Mental Status: She is alert and oriented to person, place, and time. Skin: General: Skin is warm and dry. Psychiatric: Mood and Affect: Mood normal. Behavior: Behavior normal. Vitals and nursing note reviewed. Exam conducted with a electronics assembler present. Vitals: Estimated body mass index is 23.3 kg/m?? as calculated from the following: Height as of 08/23/24: 5' 7.5 . Weight as of this encounter: 151 lb. BP: 130/80 No LMP recorded. Patient has had a hysterectomy. Assessment/Plan ICD-10-CM 1. Well woman exam with routine gynecological exam Z01.419 THIN PREP TIS PAP AND HR HPV DNA 2. H/O: hysterectomy Z90.710 THIN PREP TIS PAP AND HR HPV DNA 3. Osteoporosis, post-menopausal M81.0 DEXA bone density 4. Encounter for screening mammogram for malignant neoplasm of breast Z12.31 Bilateral screening mammogram Bilateral screening mammogram 5. Menopausal and female climacteric states N95.1 estradiol (Estrace) 1 MG tablet 6. Asymptomatic menopausal state Z78.0 estradiol (Vagifem) 10 MCG tablet vaginal tablet 7. Heartburn R12 pantoprazole (ProtoNix) 40 MG EC tablet Assessment/Plan Annual Exam: Patient presents today for an annual exam. Patient states she is doing well and has no complaints. Pap was obtained without difficulty. Orders Placed This Encounter Procedures DEXA bone density Bilateral screening mammogram Follow Up: Patient is to return in one year for annual unless needed otherwise. Documented by Franci Tang MA on behalf of: FLO Jackson documented in this encounter Plan of Treatment DateTypeDepartmentCare Team (Latest Contact Info)Vqgqpnaevxp18/07/2026 11:00 AM ESTProcedure Visit [facility] [address] [place] [address] Mary Suh PA [address] [place] [address] NameTypePriorityAssociated DiagnosesOrder ScheduleDEXA bone densityImaging Routine Osteoporosis, post-menopausal Expected: 07/21/2025 (Approximate), Expires: 07/21/2026THIN PREP TIS PAP AND HR HPV DNAPathology and CytologyRoutine Well woman exam with routine gynecological exam H/O: hysterectomy Ordered: 5Bilateral screening mammogramImagingRoutine Encounter for screening mammogram for malignant neoplasm of breast Expected: 07/21/2025 (Approximate), Expires: 09/21/2026documented as of this encounter Visit Diagnoses Diagnosis Well woman exam with routine gynecological exam Routine gynecological examination H/O: hysterectomy 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
--- OUTSIDE RECORDS SUMMARY | 2025-07-21 14:54 | XMS_ITS | Encounter Summary ---
Author Organization [facility] Address [address] [place] [place] [address] Care Team Providers Care Aerial Crop Duster Name Role Phone Tavia Barnard MD Primary Care Provider [phone] Reason for Visit * ReasonOnset DateCommentsMed Lchpap3707/08/2025 Encounter Details DateTypeDepartmentCare Team (Latest Contact Info)Gbhtzllvwht21/18/2025Refill [facility] [address] [address] Franci Tang MA [address] [place] [address] Asymptomatic menopausal state; Menopausal and female climacteric states Social History Tobacco UseTypesPacks/DayYears UsedDateSmoking Tobacco: NeverSmokeless Tobacco: NeverAlcohol UseStandard Drinks/WeekCommentsYes1 (1 standard drink = 0.6 oz pure alcohol)occasionalCommentsNoSex and Gender InformationValueDate Recorded Sex Assigned at BirthNot on fileLegal WkuAenwhi72/15/2023 11:47 PM EDTGender IdentityNot on fileSexual OrientationNot on filedocumented as of this encounter Miscellaneous Notes * Telephone Encounter - Franci Tang MA - 07/08/2025 3:26 PM EST Pt called in need of refills on medication. Pt has annual scheduled for July. Rx's were filled.PVU. documented in this encounter Plan of Treatment DateTypeDepartmentCare Team (Latest Contact Info)Daflfefqoqn14/07/2026 11:00 AM ESTProcedure Visit [facility] [address] [place] [address] Mary Suh PA [address] [place] [address] documented as of this encounter Visit Diagnoses Diagnosis Asymptomatic menopausal state Menopausal and female climacteric states documented in this encounter Care Teams Team MemberRelationshipSpecialtyStart DateEnd Date Tavia Barnard MD [address] [place] [address] PCP - GeneralFamily Medicine11/08/23documented as of this encounter
--- OUTSIDE RECORDS SUMMARY | 2025-07-21 14:54 | XMS_ITS | Clinical Summary ---
Author Organization [facility] Address [address], [address] [place] [address] Care Team Providers Care Metallic Yarn Slitting Machine Operator Name Role Phone Unavailable Primary Care Provider Unavailabl e Allergies Active AllergyReactionsCriticalityNoted DateCommentsErythromycinNausea And OatwvbbcGms34/14/2025 Medications MedicationSigDispense QuantityRefillsLast FilledStart DateEnd DateStatus ketorolac (TORADOL) 10 MG tablet Take 1 tablet by mouth every 6 hours as needed for Pain 20 tablet 5Active tiZANidine (ZANAFLEX) 4 MG tablet Take 1 tablet by mouth every 8 hours as needed (spasm) 20 tablet 5Active lidocaine (LIDODERM) 5 % Place 1 patch onto the skin daily 12 hours on, 12 hours off. 30 patch 5Active Social History Tobacco UseTypesPacks/DayYears UsedDateSmoking Tobacco: NeverPassive Smoke Exposure: NeverSmokeless Tobacco: Never Tobacco Cessation:Counseling Given: Not Answered Alcohol UseStandard Drinks/WeekCommentsNever0 (1 standard drink = 0.6 oz pure alcohol)AUDIT-CAnswerDate RecordedQ1: How often do you have a drink containing alcohol?Never10/04/2024Q2: How many drinks containing alcohol do you have on a typical day when you are drinking?Patient does not drink10/04/2024Q3: How often do you have six or more drinks on one occasion?Never10/04/2024Interpersonal Safety Domain Source: IP Abuse ScreeningAnswerDate RecordedPhysical abuseDenies 10/04/2024Verbal wmunlWftnuq24/14/2025Emotional tmltjOlalpw47/14/2025Financial jiuciSyhqai93/14/2025Sexual jnrtuYpxxjv55/14/2025CommentsNoSex and Gender InformationValueDate RecordedSex Assigned at BirthNot on fileLegal Sex Puteqw0610/04/2024 7:57 PM ESTGender IdentityNot on fileSexual OrientationNot on file Last Filed Vital Signs Vital SignReadingTime TakenCommentsBlood Pjswkbct844/98010/04/2024 8:10 PM EST Xaexq183910/04/2024 8:10 PM BQVCzgkvreexuj25.8 ??C (98.2 ??F)10/04/2024 8:10 PM ESTRespiratory Fjfz941010/04/2024 8:10 PM ESTOxygen Ehttoxetra04%10/04/2024 8:10 PM ESTInhaled Oxygen Concentration--Ejumzh10.8 kg (145 lb)10/04/2024 8:10 PM EST Dsrsao497.2 cm (5' 7 )10/04/2024 8:10 PM ESTBody Mass Index22.71010/04/2024 8:10 PM EST Plan of Treatment Health MaintenanceDue DateLast DoneCommentsDepression Kkwntm2703/13/1981HIV screen 1984Hepatitis C vndknq0903/13/1987Hepatitis B vaccine (1 of 3 - 19+ 3-dose series)1988Pap smear1990Cervical cancer ahruoi2103/13/1999HPV (without or with Pap)1999Breast cancer ttgfqd4703/13/20090457Yvgpbz75/24/2009Colonoscopy 2014Colorectal Cancer Larpun2303/13/2014FIT/FOBT: Average risk2014 Fecal-DNA (Cologuard): Average risk2014Sigmoidoscopy/CT colonography 2014DTaP/Tdap/Td vaccine (7 - Td or Tdap), 04/09/1974, 07/06/1971, Additional history existsShingles vaccine (2 of 2)04/26/2021 03/01/2021Flu vaccine (#1)509/01/2023, 2COVID-19 Vaccine (2023- season)2025Pneumococcal 50+ years LxcnhluUklzhziwu02/10/2022 Hepatitis A vaccineAged OutNo longer eligible based on patient's age to complete this topicHib vaccineAged OutNo longer eligible based on patient's age to complete this topicMeningococcal (ACWY) vaccineAged OutNo longer eligible based on patient's age to complete this topicMeningococcal B vaccineAged OutNo longer eligible based on patient's age to complete this topicPolio vaccineAged OutNo longer eligible based on patient's age to complete this topic Insurance * Guarantor: Patty GaxiolaAccount TypeRelation to PatientDate of PhoneBilling AddressPersonal/StftayVpsw1970 [address] [place] [address]
--- OUTSIDE RECORDS SUMMARY | 2025-07-21 14:54 | XMS_ITS | Encounter Summary ---
Author Organization [facility] Address [address] [place] [address] Care Team Providers Care Liquid Sugar Melter Name Role Phone Tavia Barnard MD Primary Care Provider [phone] Encounter Details DateTypeDepartmentCare Team (Latest Contact Info)Charuejzpgl86/01/2025amboo flowsheet [facility] [address] [place] [address] [place] [address] Mary Suh PA [address] [place] [address] [address] [place], [place] [address] Social History Tobacco UseTypesPacks/DayYears UsedDateSmoking Tobacco: NeverSmokeless Tobacco: NeverAlcohol UseStandard Drinks/WeekCommentsYes1 (1 standard drink = 0.6 oz pure alcohol)occasionalCommentsNoSex and Gender InformationValueDate Recorded Sex Assigned at BirthNot on fileLegal IrdItjkdp86/15/2023 11:47 PM EDTGender IdentityNot on fileSexual OrientationNot on filedocumented as of this encounter Plan of Treatment DateTypeDepartmentCare Team (Latest Contact Info)Yalubfwmqrp54/07/2026 11:00 AM ESTProcedure Visit [facility] [address] [place] [address] [place] [address] Mary Suh, PA [address] [place] [address] [address] [place] [id number] documented as of this encounter Visit Diagnoses Not on filedocumented in this encounter Care Teams Team MemberRelationshipSpecialtyStart DateEnd Date Tavia Barnard MD [address] [facility] [place] [address] PCP - GeneralFamily Medicine11/08/23documented as of this encounter
--- OUTSIDE RECORDS SUMMARY | 2025-07-21 14:54 | XMS_ITS | Clinical Summary ---
Author Organization [facility] Address [id number] [address] [place] [address] Care Team Providers Care Director Skills Name Role Phone Tavia Barnard MD Primary Care Provider [phone] Allergies Active AllergyReactionsCriticalityNoted DateCommentsErythromycinGI Disturbance 02/08/2023 Other reaction(s): Vomit Medications MedicationSigDispense QuantityRefillsLast FilledStart DateEnd DateStatus estradioL (ESTRACE) 2 mg tablet Take 1 tablet (2 mg total) by mouth in the morning.09/18/2022ctive VAGIFEM 10 mcg tablet INSERT 1 TABLET VAGINALLY TWICE PER WEEK09/20/2022ctive levothyroxine (SYNTHROID, LEVOTHROID) 100 MCG tablet Take 1 tablet (100 mcg total) by mouth.Active oxybutynin XL (DITROPAN-XL) 5 mg 24 hr tablet Take 1 tablet (5 mg total) by mouth in the morning.09/18/2022ctive pantoprazole (PROTONIX) 40 mg EC tablet Take 1 tablet (40 mg total) by mouth in the morning.09/18/2022ctive multivit-min/ferrous fumarate (MULTI VITAMIN ORAL) Take by mouth.Active b complex vitamins capsule Take 1 capsule by mouth in the morning.Active fluticasone propionate (FLONASE) 50 mcg/actuation nasal spray Administer 1 spray into each nostril daily as needed for allergies.Active loratadine (CLARITIN ORAL) Take by mouth.Active albuterol (PROVENTIL HFA;VENTOLIN HFA) 90 mcg/actuation inhaler Inhale 2 puffs daily as needed. INHALE 2 PUFFS BY MOUTH AND INTO THE LUNGS EVERY 4 HOURS NEEDED FOR COUGH, SHORTNESS OF MOAXVS5101/12/2023ctive nitrofurantoin, macrocrystal-monohydrate, (MACROBID) 100 mg capsule Take 1 capsule (100 mg total) by mouth in the morning and 1 capsule (100 mg total) before bedtime.04/26/2023ctive omega 3-txv-mto-fish oil (Fish OiL) 300-1,000 mg capsule Take by mouth.Active amoxicillin (AMOXIL) 250 mg capsule Take 1 capsule (250 mg total) by mouth in the morning and 1 capsule (250 mg total) before bedtime.Active acetaminophen (TYLENOL EXTRA STRENGTH) 500 mg tablet Take 2 tablets (1,000 mg total) by mouth every 6 (six) hours. 30 tablet 07/17/2023ctive ibuprofen (MOTRIN) 600 mg tablet Take 1 tablet (600 mg total) by mouth every 6 (six) hours. 30 tablet 07/17/2023ctive docusate sodium (COLACE) 100 mg capsule Take 1 capsule (100 mg total) by mouth in the morning and 1 capsule (100 mg total) before bedtime. 10 capsule 07/17/2023ctive doxycycline (ADOXA) 100 MG tablet Take 1 tablet (100 mg total) by mouth in the morning and 1 tablet (100 mg total) before bedtime.07/24/2023ctive Active Problems ProblemNoted DateDiagnosed DateAcid aspiration vgidsbpk13/22/2023ronchitis 10/12/2022Thyroid activity sxroazqsl70/22/2023 Family History Medical HistoryRelationNameCommentsNo Known ProblemsFatherCancerMaternal Uncle Colon cancerMaternal UncleNo Known ProblemsMotherRelationNameStatusComments FatherAliveMaternal UncleAliveMotherAlive Social History Tobacco UseTypesPacks/DayYears UsedDateSmoking Tobacco: NeverSmokeless Tobacco: Never Tobacco Cessation:Counseling Given: Not Answered Alcohol UseStandard Drinks/WeekCommentsYes0 (1 standard drink = 0.6 oz pure alcohol)OCCASIONALLYChildcareAnswerDate WxzzkiliZyvdvyjwnVqofdis07/12/2019 EmploymentAnswerDate JfsnzkheXtrrlkouolMekgkvk67/12/2019Hunger ScreeningAnswer Date RecordedWithin the past 12 months we worried whether our food would run out before we got money to buy more.Never True03/01/2023Within the past 12 months the food we bought just didn't last and we didn't have money to get more.Never True03/01/2023CommentsNoSex and Gender InformationValueDate RecordedSex Assigned at BirthNot on fileLegal VbcDyjlzo68/06/2015 11:23 AM EDTGender IdentityNot on fileSexual OrientationNot on file Last Filed Vital Signs Vital SignReadingTime TakenCommentsBlood Anenrviv477/7207/31/2023 12:55 PM EST Ppfqa831007/17/2023 10:47 AM GTBSjbopssrxeh68.1 ??C (97 ??F)07/17/2023 9:40 AM EST Respiratory Newq365309/16/2022 10:47 AM ESTOxygen Gseuhzwlmv24%07/17/2023 10:47 AM ESTInhaled Oxygen Concentration--Fasfeq97.4 kg (144 lb 3.2 oz)07/31/2023 12:55 PM HQFVygijt785.2 cm (5' 7 )07/31/2023 12:55 PM ESTBody Mass Index22.58 07/31/2023 12:55 PM EST Plan of Treatment Health MaintenanceDue DateLast DoneCommentsDepression Aiuobhqaa65/24/1981 DTaP,Tdap and Td Vaccines (7 - Td or Tdap), 04/09/1974, 07/06/1971, Additional history existsZoster (Shingles) Vaccine (2 of 2) 107/dult BMI Katmacdoi71Tobacco Screening OVID-19 Vaccine ( - season), 12/17/2020, 11/25/2020Influenza Wkjzmrf73/01/34400504/26/2023, 05/30/2022ap Smear Gohxuprcgwfg44/ Medical Devices ImplantedTypeAreaManufacturerDevice IdentifierShelf Expiration DateModel / Serial / LotMesh 15x9cm Parietex Progrip Slf Fx Srg - [id number] Implanted:Qty: 1 [facility] 07/17/2023 [facility]02/18/[id number] / NA / [id number] Insurance * Guarantor: Patty GaxiolaAccount TypeRelation to PatientDate of PhoneBilling AddressPersonal/UkbceaOcwq1970 [address] [place] [address] Care Teams Team MemberRelationshipSpecialtyStart DateEnd Date Tavia Barnard MD [address] [place] [address] PCP - GeneralFamily Acdvkbye08/16/22
--- OUTSIDE RECORDS SUMMARY | 2025-07-21 14:54 | XMS_ITS | Clinical Summary ---
Author Organization [facility] Address [address] [place] [address] Care Team Providers Care Decorator Mannequin Name Role Phone Tavia Barnard MD Primary Care Provider [phone] Allergies Active AllergyReactionsCriticalityNoted DateCommentsErythromycinGI intolerance, Nausea And UlympfglPrx42/21/2023 Other Reaction(s): GI Disturbance, Vomit Other reaction(s): Vomit Erythromycin Base06/18/2025 Other Reaction(s): Rash, vomiting Medications MedicationSigDispense QuantityRefillsLast FilledStart DateEnd DateStatus levothyroxine (Synthroid, Levoxyl) 88 MCG tablet Take 88 mcg by mouth in the morning. Take before meals.10/16/2023ctive oxybutynin XL (Ditropan-XL) 5 MG 24 hr tablet Take 5 mg by mouth Daily10/16/2023ctive albuterol HFA 90 mcg/act inhaler Inhale 1 puff if needed for wheezingActive Multiple Vitamins-Minerals (MULTIVITAMIN ADULT, MINERALS, PO) Take 1 each by mouth DailyActive Cyanocobalamin (Vitamin B 12) 100 MCG lozenge Take 1 each by mouth DailyActive montelukast (Singulair) 10 MG tablet Indications:Allergic rhinitis, unspecified seasonality, unspecified triggerTake 1 tablet (10 mg) by mouth at bedtime 90 tablet 4Active amoxicillin-clavulanate (Augmentin) 875-125 MG tablet Indications:Chronic sinusitis, unspecified locationTake 1 tablet (875 mg) by mouth in the morning and 1 tablet (875 mg) before bedtime. 28 tablet 5Active estradiol (Estrace) 1 MG tablet Indications:Menopausal and female climacteric statesTake 1 tablet (1 mg) by mouth Daily 90 tablet 5Active estradiol (Vagifem) 10 MCG tablet vaginal tablet Indications:Asymptomatic menopausal stateInsert 1 tablet (10 mcg) into the vagina 2 (two) times a week 84 tablet /6Active pantoprazole (ProtoNix) 40 MG EC tablet Indications:HeartburnTake 1 tablet (40 mg) by mouth Daily 30 tablet 111/5Active pantoprazole (ProtoNix) 40 MG EC tablet Take 40 mg by mouth Daily/08/2024Discontinued(Reorder) estradiol (Estrace) 1 MG tablet Indications:Menopausal and female climacteric statesTAKE 1 TABLET BY MOUTH EVERY DAY 90 tablet /Discontinued(Reorder) estradiol (Vagifem) 10 MCG tablet vaginal tablet Indications:Asymptomatic menopausal stateInsert 1 tablet (10 mcg) into the vagina 2 (two) times a week 24 tablet Discontinued(Reorder) estradiol (Vagifem) 10 MCG tablet vaginal tablet Indications:Asymptomatic menopausal stateInsert 1 tablet (10 mcg) into the vagina 2 (two) times a week 84 tablet /08/2024Discontinued(Reorder) estradiol (Estrace) 1 MG tablet Indications:Menopausal and female climacteric statesTake 1 tablet (1 mg) by mouth Daily 90 tablet /08/2024Discontinued(Reorder) Active Problems ProblemNoted DateDiagnosed DateHypertrophy of both inferior nasal turbinates 07/17/2024hronic ccqulfjje06/29/2024acterial jbyhknvab23/29/2024llergic /29/2024bdominal pain06/18/2024symptomatic menopausal state 10/27/2021 Encounters DateTypeDepartmentCare PrkuJdrtegkfgud89/01/2025 11:00 AM ESTProcedure Visit [facility] [address] [place] [address] [place] [address] Mary Suh PA Well woman exam with routine gynecological exam; H/O: hysterectomy; Osteoporosis, post-menopausal; Encounter for screening mammogram for malignant neoplasm of breast; Menopausal and female climacteric states; Asymptomatic menopausal state; Hrhwzkxoe87/01/2025amboo flowsheet [facility] [address] [facility] [place] [address] Mary Suh PA 07/08/2025Refill [facility] [address] [facility] [place] [address] Franci Tang MA Asymptomatic menopausal state; Menopausal and female climacteric cdhqro5206/03/2025Telephone [facility] [address] [facility] [place] [address] Brijesh Tee DO from Last 3 Months Immunizations ImmunizationAdministration DatesNext LobRYM3904/09/1974,07/06/1971,1969, 1969,1969Hep B, Adolescent or Pbmfochcv48/25/2009,04/15/2008, 03/18/2008Influenza, Aaawwxeuoqi95/10/2022Influenza, injectable, MDCK, preservative free, cywhitwacfdd75/06/2023,05/30/2022MMR03/18/2008OPV04/06/1976, 07/06/1971,1969,1969Pneumococcal Conjugate PCV Tdap 03/18/2008Zoster, Ifijxklnvej65/12/2021 Family History Medical HistoryRelationNameCommentsNo Known ProblemsFatherNo Known Problems MotherRelationNameStatusCommentsFatherAliveMotherAliveSonAlive2 Social History Tobacco UseTypesPacks/DayYears UsedDateSmoking Tobacco: NeverSmokeless Tobacco: Never Tobacco Cessation:Counseling Given: Not Answered Alcohol UseStandard Drinks/WeekCommentsYes1 (1 standard drink = 0.6 oz pure alcohol)occasionalCommentsNoSex and Gender InformationValueDate Recorded Sex Assigned at BirthNot on fileLegal VthEqpnfm05/15/2023 11:47 PM EDTGender IdentityNot on fileSexual OrientationNot on file Last Filed Vital Signs Vital SignReadingTime TakenCommentsBlood Cxurmykj038/8012 11:15 AM EST Lulef723112/20/2023 12:37 PM EDTTemperature--Respiratory Vlbr581312/20/2023 12:37 PM EDTOxygen Rveofkxgay09%12/20/2023 12:37 PM EDTInhaled Oxygen Concentration-- Aklytp53.5 kg (151 lb)07/21/2025 11:15 AM KEGYncdgk433.5 cm (5' 7.5 )08/23/2024 8:48 AM ESTBody Mass Index23. 8:48 AM EST Plan of Treatment DateTypeDepartmentCare Team (Latest Contact Info)Speutnywzeh11/07/2026 11:00 AM ESTProcedure Visit [facility] [address] [facility] [place] [address] Mary Suh PA [address] [facility] [place] [place] [address] Health MaintenanceDue DateLast DoneCommentsCT Pkfmpnrjzmbh1969FIT-DNA 1969FIT1969FOBT1969Exqtujypltpls1969HPV/Epyish3203/13/1999 COVID-19 Vaccine ( season), 06/05/2023, 12/17/2020, Additional history existsCervical Cancer Myrhpiblt79/14/2026Pap Smear, 12/25/20184554Edzamvrqg80, 01/16/2024, 01/09/2023, Additional history xepgatDbrwpymohwf75Colorectal Cancer Yvwvueapl62/18/2030Pneumococcal Vaccine: Pediatrics (0 to 5 Years) and At-Risk Patients (6 to 64 Years)Aged Out05/30/2022No longer eligible based on patient's age to complete this topicInfluenza YzkmcngHegrlmxky34/29/2025, 07/12/2024, 04/26/2023, Additional history exists Procedures Procedure NamePriorityDate/TimeAssociated DiagnosisCommentsMM TOMOSYNTHESIS SCREENING BI01/15/2025 10:47 AM EDT PAP QETLHUkeulgk00/14/2023 12:00 AM EDTfrom Last 3 Months or Most Recently Relevant to Health Maintenance Results * MM TOMOSYNTHESIS SCREENING BI (01/15/2025 10:47 AM EDT)Anatomical Region LateralityModalityOtherSpecimen (Source)Anatomical Location / Laterality Collection Method / VolumeCollection TimeReceived Time01/15/2025 10:47 AM EDT Narrative 01/15/2025 10:49 AM EDT [facility] ?[address] ? [place] [address] ? Mammography Report ? Signed ? Patient: PATTY GAXIOLA ?MR#: [id number] ?? : 1970 ?Acct:[id number] ?? Age/Sex: 54 / F ?ADM Date: 01/15/ ?? Loc: MAMMO ? Attending Dr: Brijesh Tee D.O. ? Ordering Physician: Brijesh Tee D.O. ?Results: ? Date of Service: 01/15/ ?Follow Up: ? Procedure(s): MM tomosynthesis screening BI ?? Accession Number(s): [id number] ? cc: Tavia Barnard M.D.; Brijesh Tee D.O. ? Patient Name: ? PATTY GAXIOLA ? MR#: [id number] ? : 1970 ? Exam Date: 01/15/2025 ?? Ordering Doctor: DR BRIJESH TEE . ? RADIOLOGY REPORT ? PROCEDURE: ? MM TOMOSYNTHESIS SCREENING BI ? COMPARISON: ? MM TOMOSYNTHESIS SCREENING BI, 01/12/2024. ??MG MAMM SCREEN 3D ?? SERGEI CAD, 01/09/2023. ??MG MAMM SCREEN 3D SERGEI CAD, 01/05/2022. ??MG MAMM SCREEN SERGEI ?? W CAD, 06/22/2017. ? INDICATIONS: ? Screening ? Calculator Name ? NCI Breast Cancer Risk Assessment Tool ?? 5 Year Breast Cancer Risk ? 1.10% ?? Lifetime Breast Cancer Risk ? 7.40% ?? Personal Breast Cancer ?No ?? Personal Ovarian Cancer ? No ?? Treatments ? None ?? Family Cancers ? None ? LOCATION: ? [facility] ? BREAST COMPOSITION: ? The breasts are heterogeneously dense,which may ?? obscure small masses. ? FINDINGS: ? RIGHT BREAST: ??No significant suspicious finding. ??Benign-appearing ?? calcifications are present. ??Benign-appearing lymph nodes are noted along the ?? chest wall. ? LEFT BREAST: ??No significant suspicious finding. ??Benign-appearing ?? calcifications are present. ??Benign appearing lymph nodes are noted along the ?? chest wall. ? DIAGNOSTIC CATEGORY 2--BENIGN FINDING: ? RECOMMENDATIONS: ? ROUTINE MAMMOGRAM AND CLINICAL EVALUATION IN 12 MONTHS. ? PLEASE NOTE: ??A NORMAL MAMMOGRAM DOES NOT EXCLUDE THE POSSIBILITY OF BREAST ?? CANCER. ??A CLINICALLY SUSPICIOUS PALPABLE LUMP SHOULD BE BIOPSIED. ? Dictated by: Blayne Jean Baptiste MD on 01/15/2025 at 10:44 ? Approved by: Blayne Jean Baptiste MD on 01/15/2025 at 10:47 ? Dictated By: ?Blayne Jean Baptiste M.D. ? Signed By: ?01/15/ 1049 ? DD/ ? TD/TT: ? Wind Turbine Blade Repair Technician: Procedure Note Radiology, Radiologist, MD - 01/15/[address] [address] Mammography Report Signed Patient: PATTY GAXIOLAMR#: [id number] : 1970Acct:[id number] Age/Sex: 54 / FADM Date: 01/15/25 Loc: MAMMO Attending Dr: Brijesh Tee D.O. Ordering Physician: Brijesh Tee D.O.Results: Date of Service: 01/15/25Follow Up: Procedure(s): MM tomosynthesis screening BI Accession Number(s): [id number] cc: Tavia Barnard M.D.; Brijesh Tee D.O. Patient Name: PATTY GAXIOLA MR#: [id number] : 1970 Exam Date: 01/15/2025 Ordering Doctor: DR BRIJESH TEE . RADIOLOGY REPORT PROCEDURE: MM TOMOSYNTHESIS SCREENING BI COMPARISON: MM TOMOSYNTHESIS SCREENING BI, 01/12/2024. MG MAMM MPVNOJ5O SERGEI CAD, 01/09/2023. MG MAMM SCREEN 3D SERGEI CAD, 01/05/2022. MG MAMM SCREENBIL W CAD, 06/22/2017. INDICATIONS: Screening Calculator Name NCI Breast Cancer Risk Assessment Tool 5 Year Breast Cancer Risk 1.10% Lifetime Breast Cancer Risk 7.40% Personal Breast Cancer No Personal Ovarian Cancer No Treatments None Family Cancers None LOCATION: [facility] BREAST COMPOSITION: The breasts are heterogeneously dense,which may obscure small masses. FINDINGS: RIGHT BREAST: No significant suspicious finding. Benign-appearing calcifications are present. Benign-appearing lymph nodes are noted alongthe chest wall. LEFT BREAST: No significant suspicious finding. Benign-appearing calcifications are present. Benign appearing lymph nodes are noted alongthe chest wall. DIAGNOSTIC CATEGORY 2--BENIGN FINDING: RECOMMENDATIONS: ROUTINE MAMMOGRAM AND CLINICAL EVALUATION IN 12 MONTHS. PLEASE NOTE: A NORMAL MAMMOGRAM DOES NOT EXCLUDE THE POSSIBILITY OFBREAST CANCER. A CLINICALLY SUSPICIOUS PALPABLE LUMP SHOULD BE BIOPSIED. Dictated by: Blayne Jean Baptiste MD on 01/15/2025 at 10:44 Approved by: Blayne Jean Baptiste MD on 01/15/2025 at 10:47 Dictated By: Blayne Jean Baptiste M.D. Signed By:01/15/25 1049 DD/ 1047 TD/TT: Wind Turbine Blade Repair Technician: Authorizing ProviderResult TypeResult StatusCorey Randal DOCLINISYNC IMAGINGFinal Result * Pap Smear (11/01/2022 12:00 AM EDT)Specimen (Source)Anatomical Location / LateralityCollection Method / VolumeCollection TimeReceived TimeSwabCervical swab / Unknown Narrative Authorizing ProviderResult TypeResult StatusCorey Randal DOLAB CYTOLOGY ORDERABLESFinal ResultPerforming OrganizationAddressCity/State/ZIP CodePhone Number EXTERNAL LAB from Last 3 Months or Most Recently Relevant to Health Maintenance Insurance Care Teams Team MemberRelationshipSpecialtyStart DateEnd Tavia Barnard MD [address] [place] [address] [facility]
--- OUTSIDE RECORDS SUMMARY | 2025-07-21 14:54 | XMS_ITS | Clinical Summary ---
Author Organization [facility] Address [address] [place] [address] Care Team Providers Care Streaming Media Specialist Name Role Phone Unavailable Primary Care Provider Unavailabl e Social History Tobacco UseTypesPacks/DayYears UsedDateSmoking Tobacco: Never Assessed CommentsUnknownSex and Gender InformationValueDate RecordedSex Assigned at Not on fileLegal FjpZrvndf20/16/2016 8:43 AM EDTGender IdentityNot on fileSexual OrientationNot on file Plan of Treatment Not on file
--- OUTSIDE RECORDS SUMMARY | 2025-07-21 14:54 | XMS_ITS | Clinical Summary ---
Author Organization [facility] Address [address] [place] [address] Phone Care Team Providers Care Grinder Machine Setter Name Role Phone Unavailable Primary Care Provider Unavailabl e Social History Tobacco UseTypesPacks/DayYears UsedDateSmoking Tobacco: Never Assessed CommentsUnknownSex and Gender InformationValueDate RecordedSex Assigned at Not on fileLegal NnlLbozxb12/26/2022 5:50 PM ESTGender IdentityNot on fileSexual OrientationNot on file Last Filed Vital Signs Vital SignReadingTime TakenCommentsBlood Sasrawgi704/6204 8:54 AM EDT Lfyqe5232 11:21 AM ZRBDfdwjwdjyfo06 ??C (96.8 ??F)12/15/2020 8:54 AM EDT Respiratory Rate--Oxygen Glisoymbml96%05/06/2020 11:21 AM EDTInhaled Oxygen Concentration--Mgnfsw00.7 kg (138 lb 3.7 oz)12/15/2020 8:54 AM PUDEanmmd335.5 cm (5' 7.5 )12/15/2020 8:54 AM EDTBody Mass Index21.33012/15/2020 8:54 AM EDT Plan of Treatment Not on file
--- OUTSIDE RECORDS SUMMARY | 2025-07-21 15:10 | XMS_ITS | CCD ---
Author Organization [facility] [place] [facility] Team Providers Care Manager Office Name Role Phone Saba Jenkins Unavailable Unavailable Furness, Yan T Unavailable Unavailable London, Ba U Unavailable Unavailable Wood, Javad Unavailable Unavailable Fried, Fely Unavailable Unavailable Furness, Yan Unavailable Unavailable Bolton, Melvin Unavailable Unavailable Furness, Yan T Primary Care Provider Pending Provider Unavailable Unavailable Unavailable Unavailable Unavailable Unavailable XIOMARA AARON Primary Care Physician [phone] Blaire Collier Unavailable Shan Kerr Unavailable Xiomara Aaron Unavailable RANDAL ., DR COLEY Admitting Unavailable RANDAL ., DR COLEY Consulting Unavailable RANDAL ., DR COLEY Attending Unavailable GALEN, DR XIOMARA Hunter Primary Care Unavailable DR XIOMARA AARON Primary Care Unavailable DR XIOMARA AARON Consulting Unavailable GALEN, DR XIOMARA Hunter Attending Unavailable DR XIOMARA AARON Admitting Unavailable ASAAD, IMAD Admitting Unavailable ASAAD, IMAD Consulting Unavailable ASAAD, IMAD Attending Unavailable GALEN, DR XIOMARA Hunter Primary Care Unavailable ASAAD, IMAD Admitting Unavailable ASAAD, IMAD Attending Unavailable MICHAEL, DR JOSE Martins Consulting Unavailable DR XIOMARA AARON Primary Care Unavailable ASAAD, IMAD Consulting Unavailable Asaad, Imad Unavailable Freya Ponce Unavailable DON ABRAHAM Referring Unavailable XIOMARA AARON Primary Care Unavailable Xiomara Aaron MD Primary Care Provider MARY SUH Attending Unavailable JOBY MILLER Attending Unavailable KIM BURNETTE Attending Unavailable KIM BURNETTE Attending Unavailable KIM BURNETTE Attending Unavailable Unavailable Primary Care Provider UnavailHoff Attending Unavailable Kim Burnette MD Attending Provider UnavailXiomara Bone MD Primary Care Provider Xiomara Aaron MD Primary Care Provider Yoan Henderson APRN Attending Provider Kim Burnette Jr Admitting Unavailable Kim Burnette Jr Attending Unavailable Xiomara Aaron Primary Care Unavailable Yoan Henderson Admitting Unavailable Yoan Henderson Attending Unavailable Jacki Franoc Attending Unavailable Jacki Franco Attending Unavailable Allergies Allergy ClassificationReported Allergen(s)Allergy TypeDate of OnsetReaction(s) FacilityMacrolides (antibiotic) (3 sources)Azithromycin; Translations: [erythromycin]Drug [id number] [facility] ([facility] sources)Erythromycin; Translations: [Erythromycin]Drug Orjznso30-24-7567 Vomitus (substance), GI intolerance, Nausea And Vomiting-[facility] Work Phone: (1 source)ErythromycinDrug Lmbocfa50-27-5957CjsAden[facility] (6 sources)Allergies ReconciledPropensity to adverse reactionsRay County Memorial Hospital [place] Other (1 source)ErythromycinDrug Tfbvzor74-99-3842IqclqysgtKindred Healthcare Repository Medications Current Medications MedicationDrug Class(es)DatesSig (Normalized)Sig (Original)[id number] 200 actuat albuterol 0.09 mg/actuat metered dose inhaler (20 sources)beta2-Adrenergic AgonistStart: 27-66-6737vilt 2 puff(s) by mouth every four hours as needed for coughAlbuterol Sulfate 90 mcg/actuation HFA aerosol inhaler Active 0 .ROUTE .COMPLEX 6.7 1 September 5:29pm INHALE 2 PUFFS BY MOUTH AND INTO THE LUNGS EVERY 4 HOURS NEEDED FOR COUGH, SHORTNESS OF BREATH Complies with drug therapyStart: 03-16-2023 End: 55-01-5447Qpqxyqket Sulfate 90 mcg/actuation HFA aerosol inhaler Discontinued 90 MCG INHALATION Q4H as neededfor Cough March 16, 2023 12:00am September 24, 2024 5:29pmalbuterol HFA 90 mcg/act inhaler Inhale 1 puff if needed for wheezing Activetake 2 puff(s) by mouth every four hours as needed for coughAlbuterol Sulfate HFA 108 (90 Base) MCG/ACT INHALE 2 PUFFS BY MOUTH AND INTO THE LUNGS EVERY 4 HOURS NEEDED FOR COUGH, SHORTNESS OF BREATH for 30 Activetake 2 puff(s) by mouth every four hours as needed for coughAlbuterol Sulfate HFA 108 (90 Base) MCG/ACT INHALE 2 PUFFS BY MOUTH AND INTO THE LUNGS EVERY 4 HOURS NEEDED FOR COUGH, SHORTNESS OF BREATH for 30 Activetake 2 puff(s) by mouth every four hours as needed for coughAlbuterol Sulfate HFA 108 (90 Base) MCG/ACT INHALE 2 PUFFS BY MOUTH AND INTO THE LUNGS EVERY 4 HOURS NEEDED FOR COUGH, SHORTNESS OF BREATH for 30 ActiveAlbuterol (Eqv-Proventil HFA) 90 mcg/inh inhalation aerosol (1 source)Start: 71-85-9419Yplrrcest (Eqv-Proventil HFA) 90 mcg/inh inhalation aerosol = 2 inh, Refills(s) 0 Start Date: 02/12/25 Status: Ordered Repeat number: 1alendronic acid 70 mg oral tablet (3 sources)BisphosphonateStart: 01-25-2024 End: 47-83-5593wsot 1 tablet by mouth in the morningalendronate (Fosamax) 70 MG tablet Indications: Osteopenia, unspecified location Take 1 tablet (70 mg) by mouth every 7 (seven) days Take in the morning with a full glass of water, on an empty stomach, and do not take anything else by mouth or lie down for the next 30 min. 4 tablet 11 01/25/2024 06/19/2024 Discontinued (Therapy completed) Allergy Relief (14 sources)Allergy Relief PRN ActiveAllergy Relief Activeamoxicillin 875 mg / clavulanate 125 mg oral tablet (3 sources)Penicillin-class AntibacterialStart: 24-31-5972bqsg 1 tablet by mouth in the morningamoxicillin-clavulanate (Augmentin) 875-125 MG tablet Indications: Chronic sinusitis, unspecified location Take 1 tablet (875 mg) by mouth in the morning and 1 tablet (875 mg) before bedtime. 28 tablet 09/18/2024 ActiveStart: 05-25-2635wdlw 1 tablet by mouth every twelve hoursAmoxicillin-Pot Clavulanate 875-125 MG 1 tablet Orally every 12 hrs for 10 days Jun, Activeazithromycin 250 mg oral tablet (1 source)Macrolide AntimicrobialStart: 10-66-0113Kqmctpvvfzeb 250 MG as directed Orally 2 tabs po today, then 1 tab daily x 4 more days for 5 Jul, Activeciprofloxacin 500 mg oral tablet (3 sources)Quinolone AntimicrobialStart: 06-17-2024 End: 45-83-1057ydjv 1 tablet by mouth in the morningciprofloxacin (Cipro) 500 MG tablet Indications: Urinary Tract Infection Take 1 tablet (500 mg) by mouth in the morning and 1 tablet (500 mg) before bedtime. Do all this for 7 days. 14 tablet 06/17/2024 06/24/2024 Activedicyclomine hydrochloride 20 mg oral tablet (5 sources)AnticholinergicStart: 13-15-5800nvxd 1 tablet by mouth every twelve hoursDicyclomine HCl 20 MG 1 tablet Orally bid for 30 day(s) December, Active Start: 27-12-9405btyg 1 tablet by mouth four times daily as neededDicyclomine HCl - 20 MG Oral Tablet TAKE 1 TABLET 4 times daily PRN abdominal cramping Quantity: 30Refills: 1 Ordered: 06-May-2020 Yan Winslow MD Start : 06-May-2020 Activedoxycycline hyclate 100 mg oral tablet (2 sources)Tetracycline-class DrugStart: 77-86-7016vels 1 tablet by mouth every twelve hoursDoxycycline Monohydrate 100 MG 1 tablet Orally Twice a day for 10 days Jul, ActiveStart: 63-50-1810canv 1 tablet by mouth every twelve hoursDoxycycline Monohydrate 100 MG 1 tablet Orally Twice a day for 10 days Jul, Activeestradiol 1 mg oral tablet (20 sources)EstrogenStart: 14-14-2548Jmppeej 10 MCG tablet vaginal tablet Indications: Asymptomatic menopausal state INSERT 1 TABLET INTO VAGINA AT BEDTIME FOR 2 WEEKS, THEN AT BEDTIME TWICE A WEEK. 32 tablet 1 10/14/2024 Active Start: 98-15-4436trqlrbgpe (Vagifem) 10 MCG tablet vaginal tablet Indications: Asymptomatic menopausal state Insert 1 tablet (10 mcg) into the vagina 2 (two) times a week Insert 1 tablet into vagina at bedtime for 2 weeks, then at bedtime twice a week. 24 tablet 1 07/22/2024 ActiveStart: 17-48-1223upug 1 mg by mouth once dailyEstradiol Active 1 MG PO Daily May 23, 2024 8:39amStart: 76-82-3703Vjhjjjv 10 mcg vaginal tablet INSERT 1 TABLET (10 MCG) VAGINALLY TWO TIMES A WEEK Start Date: 05/09/24 Status: Ordered Repeat number: 1Start: 01-11-2024 End: 34-45-9005Ylgemjw 10 MCG tablet vaginal tablet Indications: Post menopausal syndrome INSERT 1 TABLET (10 MCG)VAGINALLY TWO TIMES A WEEK 24 tablet 1 01/11/2024 06/19/2024 Discontinued (Therapy completed)Start: 24-37-5187igcf 1 tablet by mouth once dailyestradiol (Estrace) 1 MG tablet Indications: Menopausal and female climacteric states TAKE 1 TABLETBY MOUTH EVERY DAY 90 tablet 3 12/31/2024 ActiveStart: 10-24-2023 End: 13-75-2275raaa 1 mg by mouth once dailyEstradiol 2 mg tablet Active 1 MG PO Daily May 23, 2024 8:39am Complies with drug therapyStart: 10-24-2023 End: 98-61-4717Ngpqhcuqd (Vagifem) 10 mcg tablet Discontinued 10 MCG VAGINAL Twice a Week October 24, 2023 1:00am May 23, 2024 8:39amStart: 03-16-2023 End: 67-15-6020ruzz 1 tablet by mouth once dailyEstradiol 1 mg tablet Discontinued 1 MG PO Daily March 16, 2023 12:00am October 24, 2023 1:22pmStart: 03-16-2023 End: 69-38-0213Prulzznjc (Vagifem) 10 mcg tablet Discontinued 10 MCG VAGINAL every week March 16, 2023 12:00am October 23, 2023 4:20pmStart: 12-08-2021 Yuvafem 10 mcg vaginal tablet mcg tab(s), Vaginal, Once a day (at bedtime), Refills(s) 0 Start Date: 12/08/21 Status: OrderedStart: 40-27-1529gzll 1 tablet by mouth once dailyEstradiol 2 MG Oral Tablet TAKE 1 TABLET DAILY. Quantity: 30 Refills: 1 Ordered: 25-Jan-2021 Chance Branes MD Start : 25-Jan-2021 ActiveStart: 04-72-5936Vzconsqah 10 MCG Vaginal Tablet 1 PV QHS x 14 days then 1 PV twice weekly Quantity: 20 Refills: 5 Ordered: 08-Sep-2020 Fried WARP HANGER-CNM, WARP HANGER-HOT SHOT, Fely Start : 08-Sep-2020 ActiveVagifem 10 MCG 1 tablet Vaginal Two times a Week ActiveVagifem 10 MCG 1 tablet Vaginal Two times a Week ActiveYuvafem Active Estradiol Activeestradiol 0.025 mg/24 hours twice weekly Transderm ER Film (1 source)Start: 60-98-6907epntwvksh 0.025 mg/24 hours twice weekly Transderm ER Film patch(es), Topical, Refill(s) 0 Start Date: 12/08/21 Status: OrderedFish Oils (7 sources)take 1 capsule by mouth once dailyFish Oil 1000 MG 1 capsule Orally Once a day Activefluconazole 150 mg oral tablet (3 sources)Azole AntifungalStart: 31-13-1149spah 1 tablet by mouth every twenty- four hoursFluconazole 150 MG 1 tablet Orally daily for 1 days take first dose at onset of symptoms and then take second dose if no better in 3 days Jul, ActiveStart: 88-86-6882fapm 1 tablet by mouth every twenty-four hours Fluconazole 150 MG 1 tablet Orally daily for 1 days take first dose and then may repeat in 72 hoursif continues to have symptoms. Jun, Activefluticasone propionate 0.05 mg/actuat metered dose nasal spray (11 sources)CorticosteroidStart: 60-37-9113ckji 1 spray(s) nasal route twice dailyFlonase 0.05 mg/inh Corn 1 spray(s), Nasal, BID, 16 gram, Refill(s) 0, each nostril Start Date: 02/12/25 Status: Ordered Quantity: 16.0 Unit: g Repeat number: 1Start: 51-31-7775Hqoiovrwpco Propionate 50 mcg/actuation spray,suspension Active 1 SPRAY INTRANASAL Daily October 1:00am Complies with drug therapyStart: 09-51-9821zasw 1 spray(s) nasal route once daily Fluticasone Propionate 50 MCG/ACT 1 spray in each nostril Nasally Once a day for 30 days Jun, ActiveStart: 51-56-3409tswe 1 spray(s) nasal route once dailyFluticasone Propionate 50 MCG/ACT 1 spray in each nostril Nasally Once a day for 30 days Jun, Active1 ml ketorolac tromethamine 30 mg/ml cartridge (2 sources)Nonsteroidal Anti-inflammatory Drug, Cyclooxygenase InhibitorStart: mg, IntraMUSCular, ONCE, 1 dose, On Mon10/04/24 at 2220, Do not administer for more than 5 days.Start: 20-71-5120sbgg 1 tablet by mouth every six hours as needed for painketorolac (TORADOL) 10 MG tablet Take 1 tablet by mouth every 6 hours as needed for Pain 20 tablet 10/04/2024 Activeammonium lactate 120 mg/ml topical cream (3 sources)Start: 2024 End: 18-20-4026cwviunoq lactate (Amlactin) 12 % cream Indications: Porokeratosis Apply topically Daily 140 g 3 2024 06/19/2024 Discontinuedlidocaine 0.04 mg/mg medicated patch (2 sources)Antiarrhythmic, Amide Local AnestheticStart: patch, TransDERmal, Administer over 12 Hours, DAILY, First dose on Mon10/05/24 at 0900, Apply patch to neck/back. The machinist apprentice wood's recommendations for the number of patches that can be applied within a 24-hour period varies from 1 to 4 times daily and the duration of application varies from 8 to 24 hours; refer to the machinist apprentice [employer]'s labeling for product-specific recommendations.Start: 10-04-2024 apply 1 dose transdermal route once dailylidocaine (LIDODERM) 5 % Place 1 patch onto the skin daily 12 hours on, 12 hours off. 30 patch 10/04/2024 Active loratadine 10 mg oral tablet (6 sources)Start: 83-98-6229oxpf 1 tablet by mouth once dailyLoratadine (Claritin) 10 mg tablet Active 10 MG PO Daily May 23, 2024 12:00am Complies with drug therapymontelukast 10 mg oral tablet (20 sources)Leukotriene Receptor AntagonistStart: 06-19-2024 End: 66-38-7973faxn 1 tablet by mouth once dailyMontelukast 10 mg tablet Active 10 MG PO Daily October 18, 2024 1:00am Complies with drug therapyStart: 02-28-2024 End: 83-56-2344tnee 1 tablet by mouth once daily at bedtimeMontelukast 10 mg tablet Discontinued 0 .ROUTE .COMPLEX 90 0 February 28, 2024 8:28am February 27:35pm 10 MG ORALLY DAILY AT BEDTIMEStart: 10-25-2023 End: 16-34-8098trap 1 tablet by mouth once daily at bedtimeMontelukast (Singulair) 10 mg tablet Discontinued 10 MG PO Daily at bedtime 30 November 16, 2023 1:00pm February 28, 2024 8:28amMulti-Day Plus Minerals (4 sources)Start: 47-58-8705Pqvdh-Day Plus Minerals Oral, Daily, Refill(s) 0 Start Date: 12/08/21 Status: Ordered Repeat number:1Start: 62-05-5999Qhqus-Day Plus Minerals Oral, Daily, Refill(s) 0 Start Date: 12/08/21 Status: Ordered Multiple Vitamins-Minerals (MULTIVITAMIN ADULT, MINERALS, PO) (18 sources)take 1 dose by mouth once dailyMultiple Vitamins-Minerals (MULTIVITAMIN ADULT, MINERALS, PO) Take 1 each by mouth Daily ActiveMultivit With Min-Folic Acid (Adult One Daily Multivitamin) 0.4 mg Tablet (6 sources)Start: 38-66-0151ardt 1 tablet by mouth once dailyStart: 03-16-2023 take 1 tablet by mouth once dailyMultivit With Min-Folic Acid (Adult One Daily Multivitamin) 0.4 mg Tablet Active 1 TAB PO Daily March 16, 2023 12:00am Complies with drug therapyStart: 04-49-2467tbyc 1 tablet by mouth once daily Multivit With Min-Folic Acid (Adult One Daily Multivitamin) 0.4 mg Tablet Active 1 TAB PO Daily March 15, 2023 11:00pmStart: 92-01-7300owqk 1 tablet by mouth once dailyMultivit With Min-Folic Acid (Adult One Daily Multivitamin) 0.4 mg Tablet Active 1 TAB PO Daily March 16, 2023 12:00amMultivitamin preparation (7 sources)take 1 tablet by mouth once dailyMultivitamin - 1 tablet Orally Once a day Activenitrofurantoin, macrocrystals 25 mg / nitrofurantoin, monohydrate 75 mg oral capsule (7 sources)Nitrofuran AntibacterialStart: 60-15-4846Lyciznsa 100 mg Cap See Instructions, 1 cap orally after intercourse, # 30 cap(s), Refills(s) 3, Pha rmacy: [facility]/pharmacy #[id number], 170, cm, 02/12/25 9:25:00 EDT, Height/Length Dosing, 66.9, kg, 02/12/25 9:25:00 EDT, Weight Dosing Start Date: 02/12/25 Status: Ordered Quantity: 30.0 Unit: cap(s) Repeat number: 4 Indications: Urinary tract infection, site not specified;Start: 10-17-2021 End: 57-83-9530Xlfprgmp 100 mg Cap See Instructions, 1 cap orally after intercourse, # 30 cap(s), Refills(s) 3, Pharmacy: [facility]/pharmacy #[id number], 170, cm, 04/26/23 13:36:00 EDT, Height/Length Dosing, 69.1, kg, 04/26/2313:36:00 EDT, Weight Dosing Start Date: 04/26/23 Status: Orderedomeprazole 20 mg delayed release oral capsule (9 sources)Proton Pump InhibitorStart: 28-82-5334ydeb 1 mg by mouth once daily omeprazole 20 mg Cap-DR mg cap(s), Oral, Daily, Refills(s) 0 Start Date: 12/08/21 Status: OrderedOmeprazole Activeomeprazole 20 mg Cap-DR (1 source)Start: 00-61-7627sdtu 1 mg by mouth once dailyomeprazole 20 mg Cap-DR mg cap(s), Oral, Daily, Refills(s) 0 Start Date: 12/08/21 Status: Ekacnxd10 hr oxybutynin chloride 5 mg extended release oral tablet (20 sources)Cholinergic Muscarinic AntagonistStart: 64-93-5206djwl 1 tablet by mouth once dailyOxybutynin Chloride 5 mg tablet extended release 24hr Active 5 MG PO Daily March 16, 2023 12:00am Complies with drug therapyStart: 12-08-2021 take 1 tablet by mouth once dailyoxybutynin 5 mg ER Tab 5 mg = 1 tab(s), Oral, Daily, # 90 tab(s), Refills(s) 3, Pharmacy: [facility]/pharmacy #[id number], 170, cm, 12/08/21 9:43:00 EDT, Height/Length Dosing, 69.1, kg, 12/08/21 9:43:00 EDT, Weight Dosing Start Date: 12/08/21 Status: OrderedStart: 79-28-3402cpfy 1 tablet by mouth once dailyOxybutynin Chloride ER 5 MG Oral Tablet Extended Release 24 Hour Take 1 tablet daily Quantity: 90 Refills: 3 Ordered: 23-Apr-2020 Yan Winslow MD Start : 23-Apr-2020 Activetake 1 tablet by mouth every twenty-four hours oxyBUTYnin Chloride 5 MG 1 tablet Orally Once a day Activepantoprazole 40 mg delayed release oral tablet (20 sources)Proton Pump InhibitorStart: 03-25-2024 End: 84-16-4700ouhs 1 tablet by mouth once dailyPantoprazole 40 mg tablet,delayed release (DR/EC) Active 0 .ROUTE .COMPLEX 90 3 March 14, 2025 7:19am TAKE 1 TABLET BY MOUTH EVERY DAY Complies with drug therapyStart: 03-16-2023 End: 67-97-3551sasp 1 tablet by mouth once dailyPantoprazole 40 mg tablet,delayed release (DR/EC) Discontinued 40 MG PO Daily March 16, 2023 12:00am March 25, 2024 11:35amphenazopyridine hydrochloride 200 mg oral tablet (2 sources)Start: 23-94-4811dpax 1 tablet by mouth every eight hoursPyridium 200 MG 1 tablet after meals Orally Three times a day for 2 day(s) Sep, Activesucralfate 1000 mg oral tablet (6 sources)Aluminum ComplexStart: 12-63-5501bkwcgnfwpj 1 g Tab gm tab(s), Oral, QIDACHS, Refills(s) 0 Start Date: 12/08/21 Status: OrderedStart: 11-19-2021 sucralfate 1 g Tab gm tab(s), Oral, QIDACHS, Refills(s) 0 Start Date: 12/08/21 Status: OrderedStart: 81-26-3082hjoc 1 tablet by mouth three times daily Sucralfate 1 GM 1 TABLET Orally THREE TIMES A DAY for 30 day(s) Nov, ActiveSulfamethoxazole / Trimethoprim (4 sources)Dihydrofolate Reductase Inhibitor Antibacterial, Sulfonamide AntimicrobialStart: 80-20-3276orlyztqrzaimzyln-trimethoprim Refill(s) 0 Start Date: 02/12/25 Status: Ordered Repeat number: 1Start: 01-31-2025 End: 44-21-9367woqo 1 tablet by mouth twice dailySulfamethoxazole-Trimethoprim 800-160 mg tablet Discontinued 1 TAB PO Twice daily 14 0 January 31, 2025 12:00am April 23, 2025 10:12amtiZANidine 4 mg oral tablet (1 source)Central alpha-2 Adrenergic AgonistStart: 33-74-0391nvqk 1 tablet by mouth every eight hours as needed for muscle spasmstiZANidine (ZANAFLEX) 4 MG tablet Take 1 tablet by mouth every 8 hours as needed (spasm) 20 tablet 0 10/04/2024 ActiveVitamin B 12 (20 sources)Vitamin F77Xxggy: 97-23-0155Sqvpmqb B12 Refills(s) 0 Start Date: 12/08/21 Status: Ordered Repeat number: 1Start: 14-78-7774Uufwqka B12 Refills(s) 0 Start Date: 12/08/21 Status: Orderedtake 1 dose by mouth once daily Cyanocobalamin (Vitamin B 12) 100 MCG lozenge Take 1 each by mouth Daily Active Vitamin B 12 Activetake 1 tablet by mouth once dailyVitamin B-12 ER 1000 MCG Oral Tablet Extended Release TAKE 1 TABLET DAILY DIRECTED. Quantity: 0 R efills: 0 Ordered: 07-Nov-2018 DO ActiveVitamin B Complex (B Complex-Vitamin B12) Tablet (6 sources)Start: 40-81-7288rycd 1 tablet by mouth once dailyStart: 03-16-2023 take 1 tablet by mouth once dailyVitamin B Complex (B Complex-Vitamin B12) Tablet Active 1 TAB PO Daily March 16, 2023 12:00am Complies with drug therapy Start: 40-92-0552brtr 1 tablet by mouth once dailyVitamin B Complex (B Complex- Vitamin B12) Tablet Active 1 TAB PO Daily March 15, 2023 11:00pmStart: 44-82-4273jpsx 1 tablet by mouth once dailyVitamin B Complex (B Complex-Vitamin B12) Tablet Active 1 TAB PO Daily March 16, 2023 12:00amVitamin D3 (2 sources)Vitamin D3 ActiveYuvafem 10 mcg vaginal tablet (1 source)Start: 90-65-3905Lrxlkvt 10 mcg vaginal tablet mcg tab(s), Vaginal, Once a day (at bedtime), Refills(s) 0 Start Date: 12/08/21 Status: Ordered Completed/Discontinued Medications MedicationDrug Class(es)DatesSig (Normalized)Sig (Original)amitriptyline hydrochloride 10 mg oral tablet (1 source)Tricyclic AntidepressantStart: 12-04-2013 End: 46-95-7501mjlj 1 tablet by mouth once daily at bedtimeamitriptyline 10 mg tablet Take 1 tablet by mouth daily at bedtime. 30 tablet 9 12/04/2013 6 Discontinued (Course of therapy completed)Comment on above:Take 1 tablet by mouth daily at bedtime.amylase 441749 unt / lipase 01859 unt / protease 952536 unt delayed release oral capsule (8 sources)Start: 54-77-0282jzgz 1 capsule by mouth every eight hoursZenpep 69388-287033 UNIT 1 CAPSULE Orally THREE TIMES A DAY for 30 days Oct, Not-Takingbiotin 5 mg chewable tablet (13 sources)Start: 03-16-2023 End: 64-43-8935Zbbycs 5,000 mcg Tablet,Chewable Discontinued 3334 MCG PO Daily March 16, 2023 12:00am October 25, 2023 11:08amStart: 03-16-2023 End: 89-68-8802Yyvhwn 5,000 mcg Tablet,Chewable Discontinued 3334 MCG PO Daily March 15, 2023 11:00pm October 25, 2023 10:08amStart: 03-16-2023 End: 77-07-3607mzck 3334 ug by mouth once dailyBiotin Discontinued 3334 MCG PO Daily March 16, 2023 12:00am October 25, 2023 11:08amtake 1 tablet by mouth every twenty-four hoursBiotin 17169 MCG 1 tablet Orally Once a day Activetake 1 tablet by mouth every twenty-four hoursBiotin 25352 MCG 1 tablet Orally Once a day Activetake 1 tablet by mouth once dailyBiotin 59366 MCG 1 tablet Orally Once a day ActiveCALCIUM CARBONATE/VITAMIN D2 (CALCIUM + VITAMIN D ORAL) (1 source) End: 83-10-5886qmag 600 mg by mouth onceCALCIUM CARBONATE/VITAMIN D2 (CALCIUM + VITAMIN D ORAL) Take 600 mg by mouth. 0 04/12/2016 Discontinued (Discontinued by Patient)Comment on above:Take 600 mg by mouth.cefdinir 300 mg oral capsule (5 sources)Cephalosporin AntibacterialStart: 05-23-2024 End: 28-89-7986eodb 1 capsule by mouth twice dailyCefdinir 300 mg capsule Discontinued 300 MG PO Twice daily May 23, 2024 12:00am October 18, 2024 10:05amcetirizine hydrochloride 10 mg oral tablet (6 sources)Histamine-1 Receptor AntagonistStart: 10-24-2023 End: 50-07-5257ezck 1 tablet by mouth once daily as neededCetirizine (24hour Allergy) 10 mg tablet Discontinued 10 MG PO Daily as needed October 24, 2023 1:00am May 23, 2024 8:39amcholecalciferol 1.25 mg oral capsule (1 source)Vitamin DStart: 28-51-7206bcmmcqllpcadnlp, Vitamin D3, 50,000 unit cap capsule 1 cap per week x 10 weeks. 10 capsule 0 12/10/2013 ActiveComment on above:1 cap per week x 10 weeks.estrogens, conjugated (mcc) 1.25 mg oral tablet (3 sources)EstrogenStart: 56-70-2543rzle 1 tablet by mouth once dailyPremarin 1.25 MG Oral Tablet TAKE 1 TABLET BY MOUTH EVERY DAY Quantity: 90 Refills: 3 Ordered: 13-Aug-2020 Melvin Montilla DO Start : 19-May-2020 ActiveESTROGENS, CONJUGATED (PREMARIN ORAL) Indications: Occipital neuralgia , Chronic daily headache , Chronic migraine , Cervicalgia , Cervical radicular pain , Medication overuse headache , Disequilibrium , Neck pain , Head trauma , Neck injury Take by mouth once daily. 0 ActiveComment on above:Take by mouth once daily. famotidine 40 mg oral tablet (6 sources)Histamine-2 Receptor AntagonistStart: 04-23-2025 End: 71-31-6250nney 1 tablet by mouth once dailyFamotidine 40 mg tablet Discontinued 40 MG PO Daily April 23, 2025 12:00am June 18, 2025 1:36pmStart: 19-19-1383cuub 1 tablet by mouth twice dailyFamotidine 20 MG Oral Tablet Take 1 tablet twice daily Quantity: 60 Refills: 1 Ordered: 10-Jhk-7856DntauriYan Winslow MD Start : 06-May-2020 Ecicgv92 hr hyoscyamine sulfate 0.375 mg extended release oral tablet (7 sources)Start: 69-24-9939pvum 1 tablet by mouth every twelve hoursLevbid 0.375 MG 1 tablet Orally every 12 hrs for 30 day(s) Nov, Not-Taking levothyroxine sodium 0.088 mg oral tablet (20 sources)l-ThyroxineStart: 01-12-2024 End: 01-33-6029fkrx 1 tablet by mouth once daily in the morningLevothyroxine 88 mcg tablet Discontinued 0 .ROUTE .COMPLEX 90 0 January 14, 2025 12:16pm March 4:05pm TAKE 1 TABLET BY MOUTH EVERY DAY IN THE MORNING ON EMPTY STOMACH FOR 90 DAYSStart: 03-16-2023 End: 64-73-8739uzdb 1 tablet by mouth once dailyLevothyroxine 88 mcg tablet Discontinued 88 MCG PO Daily March 16, 2023 12:00am January 12, 2024 10:25am Start: 40-68-8662vrajthfbxktgz Daily, Refills(s) 0 Start Date: 12/08/21 Status: Ordered Repeat number: 1Start: 84-14-1472jwoluprdlqkwm Daily, Refills(s) 0 Start Date: 12/08/21 Status: OrderedLevothyroxine Sodium 88 MCG TAKE 1 TABLET BY MOUTH EVERY DAY IN THE MORNING ON EMPTY STOMACH FOR 90DAYS for 90 Activetake 1 tablet by mouth once daily in the morningLevothyroxine Sodium 100 MCG 1 tablet in the morning on an empty stomach Orally Once a day Activetake 1 tablet by mouth once dailyLevothyroxine Sodium 100 MCG Oral Tablet TAKE 1 TABLET DAILY. Quantity: 90 Refills: 3 Ordered: 03-Feb-2020 Yan Winslow MD ActiveComment on above:Take 100 mcg by mouth daily before breakfast.multivitamin tablet (1 source) End: 18-46-4580ykje 1 tablet by mouth once dailymultivitamin tablet Indications: Occipital neuralgia , Chronic daily headache , Chronic migraine , Cervicalgia , Cervical radicular pain , Medication overuse headache , Disequilibrium , Neck pain , Head trauma , Neck injury Take 1 tablet by mouth once daily. 0 04/12/2016 Discontinued (Discontinued by Patient)Comment on above:Take 1 tablet by mouth once daily.nortriptyline 25 mg oral capsule (5 sources)Tricyclic AntidepressantStart: 04-11-6472abbz 1 capsule by mouth at bedtimeNortriptyline HCl - 25 MG Oral Capsule TAKE 1 CAPSULE AT BEDTIME. Quantity: 90 Refills: 3 Ordered: 25-Oct-2019 Yan Winslow MD Start : 25-Oct-2019 ActiveNortriptyline HCl PRN Activeolopatadine 1 mg/ml ophthalmic solution (20 sources)Histamine-1 Receptor InhibitorStart: 03-16-2023 End: 92-54-2819Loozkarvdbt 0.1 % Drops Discontinued 1 DROPS EYE-BOTH Twice daily March 16, 2023 12:00am May 23, 2024 8:39am separate doses by at least 6-8 hoursStart: 03-16-2023 End: 46-33-6185Qdhhodqltiq 0.1 % Drops Discontinued 1 DROPS EYE-BOTH Twice daily March 15, 2023 11:00pm May 23, 2024 7:39am separate doses by at least 6-8 hoursStart: 96-86-6995razhvpxacoa ophthalmic 0.1% solution drop(s), BID, Refill(s) 0 Start Date: 12/08/21 Status: OrderedStart: 49-08-8360rywgmwmfrle ophthalmic 0.1% solution drop(s), BID, Refill(s) 0 Start Date: 12/08/21 Status: OrderedStart: 37-88-1645Avoekzdikkw HCl - 0.1 % Ophthalmic Solution Quantity: 5 Refills: 0 Ordered: 08-Oct-2019 DO Start : 31-Jul-2019 ActiveStart: 07-31-2019 Olopatadine HCl - 0.1 % Ophthalmic Solution Quantity: 5 Refills: 0 Start : 31-Jul-2019 ActiveOlopatadine HCl ActiveOmega 3-Jlf-Mxl-Fish Oil (Fish Oil) 100-160-1,000 mg capsule (6 sources)Start: 10-24-2023 End: 49-06-7714tols 100-160 capsules by mouth once dailyOmega 9-Qir-Lud-Fish Oil (Fish Oil) 100-160-1,000 mg capsule Discontinued 1 CAP PO Daily October 12:00am October 25, 2023 10:08amStart: 10-24-2023 End: 83-12-4956oupn 100-160 capsules by mouth once dailyOmega 0-Nui-Xhl-Fish Oil (Fish Oil) 100-160-1,000 mg capsule Discontinued 1 CAP PO Daily October 1:00am October 25, 2023 11:08amOmega-3 Fatty Acids (Fish Oil) Capsule (6 sources)Start: 03-16-2023 End: 71-51-7961bspa 1 capsule by mouth once dailyOmega-3 Fatty Acids (Fish Oil) Capsule Discontinued 1000 MG PO Daily March 15, 2023 11:00pm October 23, 2023 3:20pmStart: 03-16-2023 End: 99-12-7907vcon 1 capsule by mouth once dailyOmega-3 Fatty Acids (Fish Oil) Capsule Discontinued 1000 MG PO Daily March 16, 2023 12:00am October 23, 2023 4:20pmpolyethylene glycol 3350 343047 mg / potassium chloride 2970 mg / sodium bicarbonate 6740 mg / sodium chloride 5860 mg / sodium sulfate 09723 mg powder for oral solution (3 sources)Osmotic LaxativeStart: 65-18-5358CBN-3350/Electrolytes 236 GM as directed Orally once daily for 1 days December, Not-TakingpredniSONE 20 mg oral tablet (6 sources)Start: 04-10-2024 End: 63-80-3103kwrm 1 tablet by mouth twice dailyPrednisone 20 mg tablet Discontinued 20 MG PO Twice daily 6 0 April 10, 2024 12:00am May 23, 2024 8:40am w foodrizatriptan 10 mg oral tablet (1 source)Serotonin-1b and Serotonin-1d Receptor AgonistStart: 12-04-2013 End: 63-02-4243bhxsexmsgnv 10 mg tablet 1 tab at earliest sign of migraine. May repeat once in 2 hours if needed. 9 tablet 11 12/04/2013 04/12/2016 Discontinued (Course of therapy completed)Comment on above:1 tab at earliest sign of migraine. May repeat once in 2 hours if needed.Sertraline (1 source)Serotonin Reuptake InhibitorSERTRALINE HCL (ZOLOFT ORAL) Indications: Occipital neuralgia , Chronic daily headache , Chronic migraine , Cervicalgia , Cervical radicular pain , Medication overuse headache , Disequilibrium , Neck pain , Head trauma , Neck injury Take by mouth once daily. 0 ActiveComment on above:Take by mouth once daily. Problems Active Problems Problem ClassificationProblemDateDocumented DateEpisodic/ChronicAbdominal pain (20 sources)Abdominal pain; Translations: [Generalized abdominal pain]Onset: 643226-61-1290UqcithoqTlvxu bronchitis (6 sources)Acute bronchitis; Translations: [Acute bronchitis due to other specified organisms]EpisodicAllergic reactions (6 sources)Non-celiac gluten sensitivity; Translations: [Gluten intolerance] 45-59-1797PlfylxrNfhirecm of urinary tract (9 sources)Ureteric stone; Translations: [Calculus of ureter]EpisodicCancer of uterus (15 sources)History of malignant neoplasm of uterine body; Translations: [Personal history of malignant neoplasm of other parts of uterus]Episodic Conditions associated with dizziness or vertigo (3 sources)Dizziness; Translations: [Dizziness and giddiness]EpisodicE Codes: Fall (2 sources)Fall; Translations: [Unspecified fall, initial encounter]Onset: 797229-21-2242DgbqtxscDjvcwmrzjx disorders (20 sources)Gastroesophageal reflux disease; Translations: [Gastroesophageal reflux disease without esophagitis]Onset: 11-01-2021 Resolved: 599884-00-7495SwwyonxPdivuurzeeyby symptoms and ill-defined conditions (5 sources)Urge incontinence; Translations: [Urge incontinence of urine]Onset: 66-26-2898LmkjzxsFdukygmclagrl symptoms and ill-defined conditions (8 sources)Dysuria; Translations: [Genitourinary symptoms]Onset: 10-17-2021 Resolved: 18-48-2494DnmbfomzMgwzmwie; including migraine (4 sources)Chronic intractable migraine without aura; Translations: [Chronic migraine without aura, intractable, without status migrainosus]Onset: 08-01-2013 77-39-6808BlmdcblDqjfpcstfqcep and screening for infectious disease (19 sources)Encounter for screening for human papillomavirus (HPV); Translations: [Human papilloma virus screening]Onset: 599809-93-0256 EpisodicInflammatory diseases of female pelvic organs (1 source)Acute vaginitisEpisodicMalaise and fatigue (20 sources)Fatigue; Translations: [Other malaise and fatigue]Onset: 12-25-2023 34-06-6752BvrkdmuxGojecwzwso disorders (9 sources)Menopausal symptom; Translations: [Menopausal syndrome]ChronicNausea and vomiting (3 sources)Nausea; Translations: [Nausea alone]EpisodicNutritional deficiencies (10 sources)Vitamin D deficiency; Translations: [Unspecified vitamin D deficiency]Onset: 30-65-4698DwfvrynKykuf circulatory disease (7 sources)Acroparesthesia; Translations: [Distal paresthesia]ChronicOther diseases of bladder and urethra (19 sources)Overactive bladder; Translations: [Overactive bladder]12-03-2021 ChronicOther diseases of bladder and urethra (4 sources)Detrusor overactivity; Translations: [Overactive bladder]Onset: 91-67-8072KrzmochWasoe ear and sense organ disorders (3 sources)Impacted cerumen; Translations: [Impacted cerumen]EpisodicOther ear and sense organ disorders (1 source)Impacted cerumen, bilateralEpisodicOther female genital disorders (15 sources)H/O gynecological disorder; Translations: [Personal history of other genital system and obstetric disorders]EpisodicOther gastrointestinal disorders (20 sources)Irritable bowel syndrome; Translations: [Mixed irritable bowel syndrome]Onset: 795680-71-2643MbuwsyhSgbyg gastrointestinal disorders (1 source)Mixed irritable bowel syndromeOnset: 11-01-2021 Resolved: 31-16-3780VuyaevvHbpvx gastrointestinal disorders (1 source)Celiac disease; Translations: [Celiac disease]ChronicOther gastrointestinal disorders (5 sources)Celiac disease; Translations: [Gluten intolerance]ChronicOther gastrointestinal disorders (15 sources)Personal history of other diseases of the digestive system; Translations: [History of gastroesophageal reflux disease]EpisodicOther gastrointestinal disorders (20 sources)Diarrhea; Translations: [Diarrhea]24-84-1609FgbtnwalPksoe gastrointestinal disorders (20 sources)Abdominal bloating; Translations: [Flatulence, eructation, and gas pain]55-85-9697NoymbkeeBezzz gastrointestinal disorders (6 sources)Swollen abdomen; Translations: [Abdominal distension (gaseous)] EpisodicOther gastrointestinal disorders (20 sources)Incontinence of feces; Translations: [Full incontinence of feces] Onset: 71-44-3003KgtpmcrmGxukf gastrointestinal disorders (2 sources)Full incontinence of fecesOnset: 11-01-2021 Resolved: 71-02-3154HauctpdcPcxvr gastrointestinal disorders (14 sources)Flatulence, eructation and gas pain; Translations: [Abdominal distension (gaseous)]EpisodicOther gastrointestinal disorders (6 sources)Diarrhea, unspecified; Translations: [DIARRHEA UNSPECIFIED]Onset: 12-52-3274AuscljxzEuqpr gastrointestinal disorders (13 sources)Altered bowel function; Translations: [Change in bowel habit] 22-78-2028TohrvcbkOzaqb gastrointestinal disorders (14 sources)Constipation alternates with diarrhea; Translations: [Other specified symptoms and signs involving the digestive system and abdomen] 69-20-4995BsqujnwhLmdcm gastrointestinal disorders (1 source)Change in bowel habitEpisodicOther gastrointestinal disorders (1 source)Abdominal distension (gaseous)EpisodicOther gastrointestinal disorders (1 source)Other specified symptoms and signs involving the digestive system and abdomen; Translations: [Alternating constipation and diarrhea]EpisodicOther gastrointestinal disorders (6 sources)Abdominal distension, gaseous; Translations: [Abdominal distension (gaseous)]85-34-1774RbgotrrsRmawf gastrointestinal disorders (5 sources)Chronic constipation; Translations: [Other constipation]04-23-2025 EpisodicOther gastrointestinal disorders (6 sources)Urgent desire for stool; Translations: [Fecal urgency]04-23-2025 EpisodicOther gastrointestinal disorders (1 source)Other constipation; Translations: [Other constipation]Onset: 81-91-4415DarcmpipPsvgq gastrointestinal disorders (1 source)Fecal urgency; Translations: [Fecal urgency]Onset: 82-39-5092Wrwgipog Other infections; including parasitic (15 sources)H/O: infectious disease; Translations: [Personal history of other infectious and parasitic diseases]EpisodicOther inflammatory condition of skin (3 sources)Sunburn of second degree; Translations: [Sunburn of second degree] EpisodicOther inflammatory condition of skin (5 sources)Sunburn of first degree; Translations: [Sunburn of first degree] 72-81-9359NupymedcSeoqm inflammatory condition of skin (1 source)Sunburn of first degree; Translations: [Sunburn]08-71-1062Zcblohkr Other injuries and conditions due to external causes (1 source)Injury of head; Translations: [Unspecified injury of head, initial encounter]47-30-2623UhmfzfqkRlspp injuries and conditions due to external causes (1 source)Unspecified injury of head, initial encounter; Translations: [Unspecified injury of head, initial encounter]Onset: 09-10-1643ViburuqjNkkky lower respiratory disease (3 sources)Cough; Translations: [Cough]EpisodicOther lower respiratory disease (6 sources)Dyspnea; Translations: [Dyspnea, unspecified]94-69-2054NlzlzgatOcvjf nervous system disorders (9 sources)Idiopathic peripheral neuropathy; Translations: [Unspecified hereditary and idiopathic peripheral neuropathy]ChronicOther nervous system disorders (2 sources)Disorder of nervous system; Translations: [Demyelinating disease of central nervous system, unspecified]ChronicOther nervous system disorders (7 sources)Disorder of nervous system; Translations: [Demyelinating disease] EpisodicOther nervous system disorders (2 sources)Acroparesthesia; Translations: [Disturbance of skin sensation] EpisodicOther non-traumatic joint disorders (1 source)Pain in left kneeEpisodicOther nutritional; endocrine; and metabolic disorders (15 sources)H/O: hypothyroidism; Translations: [Personal history of other endocrine, metabolic, and immunity disorders]EpisodicOther screening for suspected conditions (not mental disorders or infectious disease) (20 sources)Cancer cervix - screening done; Translations: [Patient encounter status]Onset: 11-73-7243PseeldpjMfhhh upper respiratory disease (20 sources)Allergic rhinitis; Translations: [Allergic rhinitis due to other allergen]Onset: 362257-92-4592YdowgqqHpmyz upper respiratory infections (20 sources)Chronic sinusitis; Translations: [Chronic sinusitis, unspecified] Onset: 049023-34-2491ZsemrkeNcalp upper respiratory infections (2 sources)Acute frontal sinusitis, unspecified; Translations: [Acute recurrent maxillary sinusitis]EpisodicResidual codes; unclassified (3 sources)Past history of procedure; Translations: [Other specified personal history presenting hazards to health]EpisodicComment on above: /;Residual codes; unclassified (7 sources)Family history of cancer of colon; Translations: [Family history of malignant neoplasm of digestiveorgans]EpisodicResidual codes; unclassified (6 sources)Tobacco user; Translations: [Tobacco use]EpisodicResidual codes; unclassified (6 sources)Body mass index 20-24 - normal; Translations: [Body mass index (BMI) 23.0-23.9, adult]EpisodicSexually transmitted infections (not HIV or hepatitis) (12 sources)Human papilloma virus deoxyribonucleic acid test positive, high risk on vaginal specimen; Translations: [Cervical high risk human papillomavirus (HPV) DNA test positive]34-29-2358HcgnvbtqUrkiyrk disorders (20 sources)Hypothyroidism; Translations: [Unspecified acquired hypothyroidism] Onset: 659217-09-3105OxpaatzFiwbnzcvagkt (6 sources)Acute candidiasis of vulva and vagina; Translations: [Acute candidiasis of vulva and vagina]Urinary tract infections (20 sources)Urinary tract infectious disease; Translations: [Urinary tract infection, site not specified]Onset: 10-17-2021 Resolved: 52-79-6048GjxgcoyyOtbad infection (2 sources)Human papilloma virus infection; Translations: [Human papillomavirus in conditions classified elsewhere and of unspecified site]EpisodicViral infection (6 sources)Disease caused by 2019-nCoV; Translations: [COVID-19] Past or Other Problems Problem ClassificationProblemDateDocumented DateEpisodic/ChronicHeadache; including migraine (1 source)Chronic daily headache; Translations: [Chronic daily headache]Onset: 593856-84-2926NdxgntjeHpscn upper respiratory disease (18 sources)Hypertrophy of nasal turbinates; Translations: [Hypertrophy of nasal turbinates]Onset: 920962-44-4463XdgsktouOrqgyrstuc disorders (not diabetes) (1 source)Exocrine pancreatic insufficiencyOnset: 11-01-2021 Resolved: 70-56-3612DzgbucmzLhdfpwpw codes; unclassified (6 sources)Postmenopausal state; Translations: [Asymptomatic menopausal state] Onset: 08-68-5848IktfyqqoMnhdymkz codes; unclassified (20 sources)Menopause present; Translations: [Asymptomatic menopausal state] Onset: 313380-29-9396NcarwklcOcgsluavgrd; intervertebral disc disorders; other back problems (1 source)Cervico-occipital neuralgia; Translations: [Occipital neuralgia]Onset: 444309-96-1256TldkqtswUqwnzsrwbjpl (2 sources)Patient encounter status; Translations: [Encounter for screening mammogram for breast cancer]Unclassified (3 sources)Finding of menstrual bleeding; Translations: [Menstruation]Comment on above:Onset age 13 years;NEGATED: Highlighted row has not occurred!Residual codes; unclassified (20 sources)DiseaseEpisodic Results Test NameValueInterpretationReference RangeFacilityReminderson 05-20-2025 RemindersReminders From: Elva Wilkins To: EU - Administrative; Sent: 02/12/2025 09:53:59 EDT Show up: 04/25/2025 09:53:00 EDT Subject: 6 mos Jul 2025 appt needed Due Date/Time: 09/04/2025 09:53:00 EST Reminder/Recall Pt saw Jacki on 02/12/25; needs 6 mos recheck with her (her scheduled wasn't opened at time) Left VM asking PT to call back and schedule. Pt called back. Scheduled 08/06/25 with [place] in [place].[facility] reportOrdered By: Lorene Sigala on 39-41-5715Igajh report [facility] Main [address] [address] XRay Report Signed Patient: Patty Gaxiola MR#: [id number] : 1970 Acct:[id number] Age/Sex: 55 / F ADM Date: 5 Loc: XD Room: Type: REG CLI Attending Dr: Yoan Henderson W[employer]ER Copies to: Yoan Henderson APRN~ Ordering Provider: Yoan Henderson APRN Date of Service: 04/23/25 XR/XR KUB: K59.09 - Other constipation KUB: COMPARISON: 09/21/2020 CLINICAL DATA: Chronic constipation and diarrhea. Abdominal pain over the past few months. Supine views of the abdomen and pelvis were obtained. There is a small amount of air within the stomach. There is moderate stool at the right colon and a small amount on the left. No dilated small bowel loops are visualized. No softtissue masses or suspect renal calculi are seen. The bony structures are intact. XR/XR KUB IMPRESSION: NO ACUTE PLAIN FILM FINDINGS. Impression dictated by: Lorene Sigala M.D. 04/23/2025 12:56 PM Dictation Location: [place] [address] Transcribed By: [facility] 04/23/25 1256 Dictated By: Lorene Sigala MD 04/23/25 1254 Signed By: 04/23/25 [facility]6 [facility] Work Phone: xr [facility] [phone] [facility] [place] [address] XRay Report Signed Patient: Patty Gaxiola MR#: [id number] : 1970 Acct:[id number] Age/Sex: 55 / F ADM Date: 04/23/25 Loc: XD Room: Type: [facility] CLI Attending Dr: Yoan Henderson WARP H[employer]ER Copies to: Yoan Henderson APRN Ordering Provider: Yoan Henderson APRN Date of Service: 04/23/25 XR/XR KUB: K59.09 - Other constipation KUB: COMPARISON: 09/21/2020 CLINICAL DATA: Chronic constipation and diarrhea. Abdominal pain over the past few months. Supine views of the abdomen and pelvis were obtained. There is a small amount of air within the stomach. There is moderate stool at the right colon and a small amount on the left. No dilated small bowel loops are visualized. No soft tissue masses or suspect renal calculi are seen. The bony structures are intact. XR/XR KUB IMPRESSION: NO ACUTE PLAIN FILM FINDINGS. Impression dictated by: Lorene Sigala M.D. 04/23/2025 12:56 PM Dictation Location: [place] [address] Transcribed By: [facility] 04/23/25 1256 Dictated By: Lorene Sigala MD 04/23/25 1254 Signed By: 04/23/25 1256[facility] Phys[facility] GroupAmbulatory Visit Summaryon 20-62-5381Dhydevxfzg Visit SummaryAmbulatory Visit Summary PATTY GAXIOLA :1970 Visit Date:02/12/2025 Ambulatory Visit Instructions Your Diagnosis UTI symptoms Frequent UTI OAB (overactive bladder) IBS (irritable bowel syndrome) Urge incontinence Your Care Team Attending Physician - Joan DANIEL, Jacki Primary Care Physician - XIOMARA AARON MD This Is Your Medications List albuterol (Albuterol (Eqv-Proventil HFA) 90 mcg/inh inhalation aerosol) cyanocobalamin (Vitamin B12) estradiol (estradiol 1 mg Tab) estradiol topical (Vagifem 10 mcg vaginal tablet) fluticasone nasal (Flonase 0.05 mg/inh Corn) levothyroxine loratadine (Claritin 10 mg Tab) montelukast (montelukast 10 mg Tab) multivitamin with minerals (Multi-Day Plus Minerals) nitrofurantoin (Macrobid 100 mg Cap) oxybutynin (oxybutynin 5 mg ER Tab) pantoprazole (Pantoprazole [address] Tab) sulfamethoxazole-trimethoprim Procedures Performed D&C - Dilatation and curettage, History of hysterectomy, History of tonsillectomy, Procedure onfoot. Discharge Vitals Temperature (Oral) 37 ???C Heart Rate (Peripheral) 90 Respiratory Rate 16 Blood Pressure 98/66 Height 170 cm Height 67 in Weight 66.9 kg Weight 147.489 lb BMI 23.15 Medications What How Much When Why Instructions New nitrofurantoin (Macrobid 100 mg Cap) See instructions Frequent UTI Refills: 3 1 cap orally after intercourse Pickup at [facility]/pharmacy #[id number] Unchanged albuterol (Albuterol (Eqv-Proventil HFA) 90 mcg/ inh inhalation aerosol) 2 Inhalation Unchanged cyanocobalamin (Vitamin B12) Unchanged estradiol (estradiol 1 mg Tab) 1 Tablets By Mouth Every day Unchanged estradiol topical (Vagifem 10 mcg vaginal tablet) INSERT 1 TABLET (10 MCG) VAGINALLY TWO TIMES A WEEK Unchanged fluticasone nasal (Flonase 0.05 mg/ inh Corn) 1 Sprays Nasal Inhalation 2 times a day each nostril Unchanged levothyroxine Every day Unchanged loratadine (Claritin 10 mg Tab) By Mouth Every day Unchanged montelukast (montelukast 10 mg Tab) By Mouth Every day Unchanged multivitamin with minerals (Multi-Day Plus Minerals) By Mouth Every day Unchanged oxybutynin (oxybutynin 5 mg ER Tab) 1 Tablets By Mouth Every day Unchanged pantoprazole (Pantoprazole [address] Tab) 1 Tablets Unchanged sulfamethoxazole-trimethoprim Pharmacy Information [facility]/pharmacy #[id number]: [address], [place] [phone] Allergies erythromycin (Vomit) Problems Ongoing - Any problem that you are currently receiving treatment for. Frequent UTI GERD (gastroesophageal reflux disease) Hypothyroidism IBS (irritable bowel syndrome) OAB (overactive bladder) Urge incontinence UTI symptoms Patient Survey You may receive a survey via text or e-mail asking about your office visit. Please share your experience with us by completing your survey. We appreciate your feedback and thank you for choosing us for your care. Patient Portal You may access all of your results and other medical record information on our secure patient portal. If you are not signed up for this yet, please contact [employer] at [phone] to get signed up today. Language Information Language assistance services are available as needed. [facility] Office/Clinic Noteon [phone] Office/Clinic NoteUrology Office/Clinic Note Chief Complaint possile UTI HPI Staff 54 yr old female here with possible UTI DX: Frequent UTI, OAB & Urge Incontinence, IBS *Oxybutynin ER 5mg QD therapy History of Present Illness I have reviewed and verified the staff HPI to be accurate for this encounter. Review of Systems PHQ Score Initial Depression Screen Score: 0 SCORE no fever, chills, malaise, myalgia. no abdominal pain, nausea, vomiting. Physical Exam Vitals & Measurements T: 37 ???C(Oral) HR: 90(Peripheral) RR: 16 BP: 98/66 HT: 170 cm HT: 67 in WT: 147.489 lb WT: 66.9 kg BMI: 23.15 General: Well developed, well nourished, in no acute distress. Assessment/Plan 54 y/o female patient here today for UTI symptoms [facility] patient 1. Frequent UTI (N39.0: Urinary tract infection, site not specified) Shares [employer] put her on Macrobid post-coital a few years ago. Was taking once weekly with good results. She stopped this about 6-12 mos prior to last visit without any breakthrough infections. Refills for Macrobid sent at last visit by [facility]. UCX: 06/17/24 - no growth No UA or PVR provided today, pt voided prior to OV Today, she presents for evaluation of UTI symptoms. However, patient states that she called her PCPlast 02/06/25 when her symptoms began and she was started on empiric Bactrim x 7 days. Shares no urine culture was complete and shares that her UTI symptoms have completely resolved today. States she is unsure when her last UTI was prior to this. She is currently using estrogen vaginal inserts by [employer]. She also uses post-coital Macrobid as needed, and requests refills today. Drinking mostly water daily. Denies constipation or issues w/ loose bowels. She is s/p hysterectomy. UTI symptoms included tingling in hands, mild dysuria and increased frequency. Patient unable to provide urine sample today. She has 1 more day of Bactrim left. Informed patient that is difficult to say if she had a confirmed UTI given no urine culture or UA today. No need to obtain urine culture given current antibiotic usage and resolution of her symptoms with Bactrim. Today we discussed the following methods to decrease frequency of UTIs: 1) Increase fluids. Aim for at least 2L daily. General bladder health reviewed and pt education provided. Bladder irritant list provided for pt to review. 2) Ensure bladder emptying fully. Discussed double void maneuvers (encouraged to lean forward, apply gentle pressure on the bladder, and standing then sitting again). 3) We discussed that there is evidence that herbal supplements may help - cranberry, probiotics, and d-mannose. 4) Continue use of estrogen vaginal inserts (VagFem) per APPROVER. Reasoning, side effects, risks/benefits discussed. 5) Continue post-coital Macrobid as needed She denies hx of kidney stones or flank pain. Pt advised if she starts to have breakthrough UTIs, then will obtain KUB & KITA to rule out stones as contributing factor to UTIs. Pt advised to contact our office w all future UTI sx so we can monitor urine cx results, treat appropriately (may require extended course abx), and monitor frequency of infections. ER for fever, chills, NV, severe flank pain, inability to urinate. -Finish course of Bactrim -Start OTC herbal supplements - cranberry, probiotics, and d-mannose. Handout provided. -Cont estrogen vaginal inserts 2x/weekly per APPROVER -Cont post-coital Macrobid PRN. Refills sent. -Increase fluid intake, avoid bladder irritants -ER precautions above -Follow up in 6 months, or sooner if needed Ordered: nitrofurantoin, See Instructions, 1 cap orally after intercourse, # 30 cap(s), Refills(s) 3, Pharmacy: [facility]/pharmacy #[id number], 170, cm, 02/12/25 9:25:00 EDT, Height/Length Dosing, 66.9, kg, 02/12/25 9:25:00 EDT, Weight Dosing Urnls Dip Stick Auto w/o Microscopy POC 20581 2. OAB (overactive bladder) (N32.81: Overactive bladder) BBSQ 7 Reports taking Oxybutynin ER 5mg QD (switched from IR previously) for urinary frequency and urgency. No bothersome SEs. Feels medication is working well and does not wish to make any adjustments at this time. -Cont Oxybutynin 5 mg ER. Pt to call for refills -Cont sxs monitoring 3. IBS (irritable bowel syndrome) (K58.9: Irritable bowel syndrome, unspecified) Previously reported occasional fecal incontinence. Daily Miralax recommended which pt reported did not improve her sxs. Last visit, still having fecal incontinence intermittently. Very bothersome. Itwas recommended to keep a food diary and figure out her baseline fiber intake, then add Fiber gummies or Metamucil daily. She was advised to try this for at least 2 mos. If still no improvement, thenGI evaluation recommended. Today, she reports bowels have improved and she is no longer experiencing fecal incontinence. Discussed bladder/bowel connection. -F/u w/ PCP/GI if bowels worsen Follow-up With When Contact Information Jacki Franco PA-C, URL In 6 months Additional Instructions: Patient E (more content not included)...[facility] - TrumbullComment on above:Result Comment: Electronically Signed By: Jacki Franco PA-C\.br\Date and Time Signed: 02/12/25 10:29 [facility] T[facility] S[facility]ING BIon [id number] [address] Mammography Report Signed Patient: PATTY GAXIOLA MR#: [id number] : 1970 Acct:[id number] Age/Sex: 54 / F ADM Date: 01/15/25 Loc: MAMMO Attending Dr: Tacos Tee D.O. Ordering Physician: Tacos Tee D.O. Results: Date of Service: 01/15/25 Follow Up: Procedure(s): MM tomosynthesis screening BI Accession Number(s): [id number] cc: Xiomara Aaron M.D.; Tacos Tee D.O. Patient Name: PATTY GAXIOLA MR#: [id number] : 1970 Exam Date: 01/15/2025 Ordering Doctor: DR TACOS TEE . RADIOLOGY REPORT PROCEDURE: MM TOMOSYNTHESIS SCREENING BI COMPARISON: MM TOMOSYNTHESIS SCREENING BI, 01/12/2024. MG MAMM SCREEN 3D EDWARD CAD, 01/09/2023. MG MAMM SCREEN 3D EDWARD CAD, 01/05/2022. MG MAMM SCREEN EDWARD W CAD, 06/22/2017. INDICATIONS: Screening Calculator Name NCI Breast Cancer Risk Assessment Tool 5 Year Breast Cancer Risk 1.10% Lifetime Breast Cancer Risk 7.40% Personal Breast Cancer No Personal Ovarian Cancer No Treatments None Family Cancers None LOCATION: [facility] BREAST COMPOSITION: The breasts are heterogeneously dense,which may obscure small masses. FINDINGS: RIGHT BREAST: No significant suspicious finding. Benign-appearing calcifications are present. Benign-appearing lymph nodes are noted along the chest wall. LEFT BREAST: No significant suspicious finding. Benign-appearing calcifications are present. Benign appearing lymph nodes are noted along the chest wall. DIAGNOSTIC CATEGORY 2--BENIGN FINDING: RECOMMENDATIONS: ROUTINE MAMMOGRAM AND CLINICAL EVALUATION IN 12 MONTHS. PLEASE NOTE: A NORMAL MAMMOGRAM DOES NOT EXCLUDE THE POSSIBILITY OF BREAST CANCER. A CLINICALLY SUSPICIOUS PALPABLE LUMP SHOULD BE BIOPSIED. Dictated by: Blayne Jean Baptiste MD on 01/15/2025 at 10:44 Approved by: Blayne Jean Baptiste MD on 01/15/2025 at 10:47 Dictated By: Blayne Jean Baptiste M.D. Signed By: 01/15/25 1049 DD/ 1047 TD/TT: Production Floater:TBHRadiology, Radiologist, - 01/15/2025 [place] [address] Mammography Report Signed Patient: PATTY GAXIOLA MR#: [id number] : 1970 Acct:[id number] Age/Sex: 54 / F ADM Date: 01/15/25 Loc: MAMMO Attending Dr: Tacos Tee D.O. Ordering Physician: Tacos Tee D.O. Results: Date of Service: 01/15/25 Follow Up: Procedure(s): MM tomosynthesis screening BI Accession Number(s): [id number] cc: Xiomara Aaron M.D.; Tacos Tee D.O. Patient Name: PATTY GAXIOLA MR#: [id number] : 1970 Exam Date: 01/15/2025 Ordering Doctor: DR TACOS TEE . RADIOLOGY REPORT PROCEDURE: MM TOMOSYNTHESIS SCREENING BI COMPARISON: MM TOMOSYNTHESIS SCREENING BI, 01/12/2024. MG MAMM SCREEN 3D EDWARD CAD, 01/09/2023. MG MAMM SCREEN 3D EDWARD CAD, 01/05/2022. MG MAMM SCREEN EDWARD W CAD, 06/22/2017. INDICATIONS: Screening Calculator Name NCI Breast Cancer Risk Assessment Tool 5 Year Breast Cancer Risk 1.10% Lifetime Breast Cancer Risk 7.40% Personal Breast Cancer No Personal Ovarian Cancer No Treatments None Family Cancers None LOCATION: [facility] BREAST COMPOSITION: The breasts are heterogeneously dense,which may obscure small masses. FINDINGS: RIGHT BREAST: No significant suspicious finding. Benign-appearing calcifications are present. Benign-appearing lymph nodes are noted along the chest wall. LEFT BREAST: No significant suspicious finding. Benign-appearing calcifications are present. Benign appearing lymph nodes are noted along the chest wall. DIAGNOSTIC CATEGORY 2--BENIGN FINDING: RECOMMENDATIONS: ROUTINE MAMMOGRAM AND CLINICAL EVALUATION IN 12 MONTHS. PLEASE NOTE: A NORMAL MAMMOGRAM DOES NOT EXCLUDE THE POSSIBILITY OF BREAST CANCER. A CLINICALLY SUSPICIOUS PALPABLE LUMP SHOULD BE BIOPSIED. Dictated by: Blayne Jean Baptiste MD on 01/15/2025 at 10:44 Approved by: Blayne Jean Baptiste MD on 01/15/2025 at 10:47 Dictated By: Blayne Jean Baptiste M.D. Signed By: 01/15/25 1049 DD/ 1047 TD/TT: Production Floater: [facility] Center[facility] (narrative)[facility] TOMOSYNTHESIS SCREENING BIOrdered By: Radiologist Radiology on [id number] Medical Center Work Phone: cT CERVICAL SPINE WO CONTRASTon [id number] CERVICAL SPINE WO CONTRASTEXAMINATION: CT OF THE CERVICAL SPINE WITHOUT CONTRAST 10/04/2024 9:39 pm TECHNIQUE: CT of the cervical spine was performed without the administration of intravenous contrast. Multiplanar reformatted images are provided for review. Automated exposure control, iterative reconstruction, and/or weight based adjustment of the mA/kV was utilized to reduce the radiation dose to as low as reasonably achievable. COMPARISON: None. HISTORY: ORDERING SYSTEM PROVIDED HISTORY: fall TECHNOLOGIST PROVIDED HISTORY: Reason for exam:->fall Decision Support Exception - unselect if not a suspected or confirmed emergency medical condition->Emergency Medical Condition (MA) What reading provider will be dictating this exam?->CRC FINDINGS: BONES/ALIGNMENT: There is no acute fracture or traumatic malalignment. DEGENERATIVE CHANGES: Mild loss of disc heights at C4-5, C5-6 and C6-7 with small disc osteophyte complexes. Mild uncovertebral joint hypertrophic changes are noted at these levels. No central canal stenosis. Mild right C5-6 neural foraminal stenosis. SOFT TISSUES: There is no prevertebral soft tissue swelling. IMPRESSION: No acute abnormality of the cervical spine. Interpreted by: Chloe Lorenzana MD Signed by: Chloe Lorenzana MD 10/04/24 Final resultNoWray Community District HospitalCT Cervical spine WO contraston [id number] acute abnormality of the cervical spine. AHMET MARTINS RADIOLOGYEXAMINATION: CT OF THE CERVICAL SPINE WITHOUT CONTRAST 10/04/2024 9:39 pm TECHNIQUE: CT of the cervical spine was performed without the administration of intravenous contrast. Multiplanar reformatted images are provided for review. Automated exposure control, iterative reconstruction, and/or weight based adjustment of the mA/kV was utilized to reduce the radiation dose to as low as reasonably achievable. COMPARISON: None. HISTORY: ORDERING SYSTEM PROVIDED HISTORY: fall TECHNOLOGIST PROVIDED HISTORY: Reason for exam:->fall Decision Support Exception - unselect if not a suspected or confirmed emergency medical condition->Emergency Medical Condition (MA) What reading provider will be dictating this exam?->CRC FINDINGS: BONES/ALIGNMENT: There is no acute fracture or traumatic malalignment. DEGENERATIVE CHANGES: Mild loss of disc heights at C4-5, C5-6 and C6-7 with small disc osteophyte complexes. Mild uncovertebral joint hypertrophic changes are noted at these levels. No central canal stenosis. Mild right C5-6 neural foraminal stenosis. SOFT TISSUES: There is no prevertebral soft tissue swelling. Chloe Tay MD - 10/04/2024 EXAMINATION: CT OF THE CERVICAL SPINE WITHOUT CONTRAST 10/04/2024 9:39 pm TECHNIQUE: CT of the cervical spine was performed without the administration of intravenous contrast. Multiplanar reformatted images are provided for review. Automated exposure control, iterative reconstruction, and/or weight based adjustment of the mA/kV was utilized to reduce the radiation dose to as low as reasonably achievable. COMPARISON: None. HISTORY: ORDERING SYSTEM PROVIDED HISTORY: fall TECHNOLOGIST PROVIDED HISTORY: Reason for exam:->fall Decision Support Exception - unselect if not a suspected or confirmed emergency medical condition->Emergency Medical Condition (MA) What reading provider will be dictating this exam?->CRC FINDINGS: BONES/ALIGNMENT: There is no acute fracture or traumatic malalignment. DEGENERATIVE CHANGES: Mild loss of disc heights at C4-5, C5-6 and C6-7 with small disc osteophyte complexes. Mild uncovertebral joint hypertrophic changes are noted at these levels. No central canal stenosis. Mild right C5-6 neural foraminal stenosis. SOFT TISSUES: There is no prevertebral soft tissue swelling. IMPRESSION: No acute abnormality of the cervical spine. [facility]CT [facility]ASTon [facility]2024 CT HEAD WO CONTRASTEXAMINATION: CT OF THE HEAD WITHOUT CONTRAST 10/04/2024 9:39 pm TECHNIQUE: CT of the head was performed without the administration of intravenous contrast. Automated exposure control, iterative reconstruction, and/or weight based adjustment of the mA/kV was utilized to reduce the radiation dose to as low as reasonably achievable. COMPARISON: None. HISTORY: ORDERING SYSTEM PROVIDED HISTORY: njl TECHNOLOGIST PROVIDED HISTORY: Reason for exam:->fl Has a code stroke or stroke alert been called?->No Decision Support Exception - unselect if not a suspected or confirmed emergency medical condition->Emergency Medical Condition (MA) What reading provider will be dictating this exam?->CRC FINDINGS: BRAIN/VENTRICLES: There is no acute intracranial hemorrhage, mass effect or midline shift. No abnormal extra-axial fluid collection. The douglas-white differentiation is maintained without evidence of an acute infarct. There is no evidence of hydrocephalus. ORBITS: The visualized portion of the orbits demonstrate no acute abnormality. SINUSES: The visualized paranasal sinuses and mastoid air cells demonstrate no acute abnormality. SOFT TISSUES/SKULL: No acute abnormality of the visualized skull or soft tissues. IMPRESSION: No acute intracranial abnormality. Interpreted by: Chloe oLrenzana MD Signed by: Chloe Lorenzana MD 10/04/24 Final resultNoWray Community District HospitalCT Head WO contraston 10-04-2024 No acute intracranial abnormality. PO SAPPHIRE RADIOLOGYEXAMINATION: CT OF THE HEAD WITHOUT CONTRAST 10/04/2024 9:39 pm TECHNIQUE: CT of the head was performed without the administration of intravenous contrast. Automated exposure control, iterative reconstruction, and/or weight based adjustment of the mA/kV was utilized to reduce the radiation dose to as low as reasonably achievable. COMPARISON: None. HISTORY: ORDERING SYSTEM PROVIDED HISTORY: [facility] TECHNOLOGIST PROVIDED HISTORY: Reason for exam:->fll Has a code stroke or stroke alert been called?->No Decision Support Exception - unselect if not a suspected or confirmed emergency medical condition->Emergency Medical Condition (MA) What reading provider will be dictating this exam?->CRC FINDINGS: BRAIN/VENTRICLES: There is no acute intracranial hemorrhage, mass effect or midline shift. No abnormal extra-axial fluid collection. The douglas-white differentiation is maintained without evidence of an acute infarct. There is no evidence of hydrocephalus. ORBITS: The visualized portion of the orbits demonstrate no acute abnormality. SINUSES: The visualized paranasal sinuses and mastoid air cells demonstrate no acute abnormality. SOFT TISSUES/SKULL: No acute abnormality of the visualized skull or soft tissues. Chloe Tay MD - 10/04/2024 EXAMINATION: CT OF THE HEAD WITHOUT CONTRAST 10/04/2024 9:39 pm TECHNIQUE: CT of the head was performed without the administration of intravenous contrast. Automated exposure control, iterative reconstruction, and/or weight based adjustment of the mA/kV was utilized to reduce the radiation dose to as low as reasonably achievable. COMPARISON: None. HISTORY: ORDERING SYSTEM PROVIDED HISTORY: [facility] TECHNOLOGIST PROVIDED HISTORY: Reason for exam:->fll Has a code stroke or stroke alert been called?->No Decision Support Exception - unselect if not a suspected or confirmed emergency medical condition->Emergency Medical Condition (MA) What reading provider will be dictating this exam?->CRC FINDINGS: BRAIN/VENTRICLES: There is no acute intracranial hemorrhage, mass effect or midline shift. No abnormal extra-axial fluid collection. The douglas-white differentiation is maintained without evidence of an acute infarct. There is no evidence of hydrocephalus. ORBITS: The visualized portion of the orbits demonstrate no acute abnormality. SINUSES: The visualized paranasal sinuses and mastoid air cells demonstrate no acute abnormality. SOFT TISSUES/SKULL: No acute abnormality of the visualized skull or soft tissues. IMPRESSION: No acute intracranial abnormality. [facility] THORACIC SPINE WO CONTRASTon [id number] THORACIC SPINE WO CONTRASTEXAMINATION: CT OF THE THORACIC SPINE WITHOUT CONTRAST 10/04/2024 9:39 pm: TECHNIQUE: CT of the thoracic spine was performed without the administration of intravenous contrast. Multiplanar reformatted images are provided for review. Automated exposure control, iterative reconstruction, and/or weight based adjustment of the mA/kV was utilized to reduce the radiation dose to as low as reasonably achievable. COMPARISON: None. HISTORY: ORDERING SYSTEM PROVIDED HISTORY: fall TECHNOLOGIST PROVIDED HISTORY: Reason for exam:->fall What reading provider will be dictating this exam?->CRC FINDINGS: BONES/ALIGNMENT: There is normal alignment of the spine. The vertebral body heights are maintained. No osseous destructive lesion is seen. DEGENERATIVE CHANGES: No gross spinal canal stenosis or bony neural foraminal narrowing of the thoracic spine. SOFT TISSUES: 3.5 x 2.4 x 4.0 cm prevertebral cyst at the level of T6-7 to T8. It may represent a forgot duplication cyst. IMPRESSION: 1. No fracture or subluxation is noted. 2. 3.5 x 2.4 x 4.0 cm prevertebral cyst from the level of T6-7 to T8. It may represent a thyroglossal duct cyst. Interpreted by: Chloe Lorenzana MD Signed by: Chloe Lorenzana MD 10/04/24 Final resultNoWray Community District HospitalCT Thoracic spine WO contraston . No fracture or subluxation is noted. 2. 3.5 x 2.4 x 4.0 cm prevertebral cyst from the level of T6-7 to T8. It may represent a thyroglossal duct cyst. PO SAPPHIRE RADIOLOGYEXAMINATION: CT OF THE THORACIC SPINE WITHOUT CONTRAST 10/04/2024 9:39 pm: TECHNIQUE: CT of the thoracic spine was performed without the administration of intravenous contrast. Multiplanar reformatted images are provided for review. Automated exposure control, iterative reconstruction, and/or weight based adjustment of the mA/kV was utilized to reduce the radiation dose to as low as reasonably achievable. COMPARISON: None. HISTORY: ORDERING SYSTEM PROVIDED HISTORY: fall TECHNOLOGIST PROVIDED HISTORY: Reason for exam:->fall What reading provider will be dictating this exam?->CRC FINDINGS: BONES/ALIGNMENT: There is normal alignment of the spine. The vertebral body heights are maintained. No osseous destructive lesion is seen. DEGENERATIVE CHANGES: No gross spinal canal stenosis or bony neural foraminal narrowing of the thoracic spine. SOFT TISSUES: 3.5 x 2.4 x 4.0 cm prevertebral cyst at the level of T6-7 to T8. It may represent a forgot duplication cyst. Chloe Tay MD - 10/04/2024 EXAMINATION: CT OF THE THORACIC SPINE WITHOUT CONTRAST 10/04/2024 9:39 pm: TECHNIQUE: CT of the thoracic spine was performed without the administration of intravenous contrast. Multiplanar reformatted images are provided for review. Automated exposure control, iterative reconstruction, and/or weight based adjustment of the mA/kV was utilized to reduce the radiation dose to as low as reasonably achievable. COMPARISON: None. HISTORY: ORDERING SYSTEM PROVIDED HISTORY: fall TECHNOLOGIST PROVIDED HISTORY: Reason for exam:->fall What reading provider will be dictating this exam?->CRC FINDINGS: BONES/ALIGNMENT: There is normal alignment of the spine. The vertebral body heights are maintained. No osseous destructive lesion is seen. DEGENERATIVE CHANGES: No gross spinal canal stenosis or bony neural foraminal narrowing of the thoracic spine. SOFT TISSUES: 3.5 x 2.4 x 4.0 cm prevertebral cyst at the level of T6-7 to T8. It may represent a forgot duplication cyst. IMPRESSION: 1. No fracture or subluxation is noted. 2. 3.5 x 2.4 x 4.0 cm prevertebral cyst from the level of T6-7 to T8. It may represent a thyroglossal duct cyst. [facility] SystemsNo Panel Informationon [id number] Study observation (narrative)[facility]XR [facility] (2 VW)on [id number] CHEST (2 VW)EXAMINATION: TWO XRAY VIEWS OF THE CHEST 10/04/2024 8:51 pm COMPARISON: None. HISTORY: ORDERING SYSTEM PROVIDED HISTORY: [facility] TECHNOLOGIST PROVIDED HISTORY: Reason for exam:->ffal What reading provider will be dictating this exam?->CRC FINDINGS: The lungs are clear. The cardiomediastinal contour is unremarkable. No pneumothorax or pleural effusion is seen. The visualized bones are grossly intact. IMPRESSION: No acute cardiopulmonary abnormality. Interpreted by: Chloe Lorenzana MD Signed by: Chloe Lorenzana MD 10/04/24 Final resultNoWray Community District HospitalXR Chest 2 Viewson [id number] acute cardiopulmonary abnormality. AHMET MARTINS RADIOLOGYEXAMINATION: TWO XRAY VIEWS OF THE CHEST 10/04/2024 8:51 pm COMPARISON: None. HISTORY: ORDERING SYSTEM PROVIDED HISTORY: [facility] TECHNOLOGIST PROVIDED HISTORY: Reason for exam:->ffal What reading provider will be dictating this exam?->CRC FINDINGS: The lungs are clear. The cardiomediastinal contour is unremarkable. No pneumothorax or pleural effusion is seen. The visualized bones are grossly intact. Chloe Tay MD - 10/04/2024 EXAMINATION: TWO XRAY VIEWS OF THE CHEST 10/04/2024 8:51 pm COMPARISON: None. HISTORY: ORDERING SYSTEM PROVIDED HISTORY: [facility] TECHNOLOGIST PROVIDED HISTORY: Reason for exam:->ffal What reading provider will be dictating this exam?->CRC FINDINGS: The lungs are clear. The cardiomediastinal contour is unremarkable. No pneumothorax or pleural effusion is seen. The visualized bones are grossly intact. IMPRESSION: No acute cardiopulmonary abnormality. [facility] [place] [employer]Rad[facility] Study observation (narrative)[facility] [place] [facility]XR Chest 2 ViewsOrdered By: Chloe Lorenzana on [id number] [employer] Work Phone: XR SHOULDER LEFT (MIN 2 VIEWS)on [id number] SHOULDER LEFT (MIN 2 VIEWS)EXAMINATION: THREE XRAY VIEWS OF THE LEFT SHOULDER 10/04/2024 7:51 pm COMPARISON: None. HISTORY: ORDERING SYSTEM PROVIDED HISTORY: fall TECHNOLOGIST PROVIDED HISTORY: Reason for exam:->fall What reading provider will be dictating this exam?->CRC FINDINGS: The shoulder is intact, with no sign of fracture or dislocation. There is no sign of any degenerative disease. The visualized chest is clear. IMPRESSION: Normal study. Interpreted by: Nicko Galindo MD Signed by: Nicko Galindo MD 10/04/24 Final resultNorthern Colorado Long Term Acute HospitalALLERGENS W/COMP RFLX AREA 5on [id number] DESCRIPTIONComment.NOMS HealthcareComment on above:Levels of Specific IgE Class Description of Class ----- < 0.10 0 Negative 0.10 - 0.31 0/I Equivocal/Low 0.32 - 0.55 I Low 0.56 - 1.40 II Moderate 1.41 - 3.90 III High 3.91 - 19.00 IV Very High 19.01 - 100.00 V Very High >100.00 Very High D993-OAK D PTERONYSSINUS<0.10Class 0 kU/LNOMS ZvvllpitosC292-ACB D FARINAE<0.10 Class 0 kU/LNOMS XqkjjpjihfM468-SVO CAT DANDER<0.10Class 0 kU/LNOMS Healthcare F079-FGT DOG DANDER<0.10Class 0 kU/LNOMS ZdtjaetzvnP130-UOT MOUSE URINE<0.10 Class 0 kU/LNOMS HealthcareComment on above:Performed at: [address] [id number] Mortician Investigator: Jermain Wells MD, Phone: [phone] [id number] BERMUDA GRASS<0.10Class 0 kU/LNOMS WuclzcdbyoT708-MSG PAKO GRASS <0.10Class 0 kU/LNOMS UzjpzpnabdM688-PDZ COCKROACH, ETHIOPIAN<0.10Class 0 kU/LNOMS HealthcareIMMUNOGLOBULIN E, YJRMO56UJNN HealthcareInterpretation and review of laboratory resultsAbnormalNOMS YxxcbwerdpO619-YKZ PENICILLIUM CHRYSOGEN<0.10 Class 0 kU/LNOMS SawqrxmjkzZ589-UMG CLADOSPORIUM HERBARUM<0.10Class 0 kU/LNOMS RanhiyrnrzK073-VTG ASPERGILLUS FUMIGATUS<0.10Class 0 kU/LNOMS NpejxktmxfY362-YTU ALTERNARIA ALTERNATA0.19 kU/LAbnormalClass 0/INOMS RruhxmsympM318-OIP MAPLE/BOX ELDER<0.10Class 0 kU/LNOMS YnwkdvbgyyF039-HHX COMMON SILVER BIRCH<0.10Class 0 kU/LNOMS UvayakgzewD832-LAY CEDAR, MOUNTAIN<0.10Class 0 kU/LNOMS BtojmoymraT268- IGE OAK, WHITE<0.10Class 0 kU/LNOMS IravbmxodxJ604-ALN ELM, BURMESE<0.10Class 0 kU/LNOMS QzcnyjuiqpK422-CFZ WAL[place]UT<0.10Class 0 kU/LNOMS VgnjlvdnzrL553-CXU MAPLE LEAF [place]<0.10Class 0 kU/LNOMS MyglvlrpmjC715-RLZ [place]<0.10Class 0 kU/LNOMS TihkcikztdE200-EWC NICOLE, WHITE<0.10Class 0 kU/LNOMS TflpsptsbgN461-ZWU PECAN, HICKORY<0.10Class 0 kU/LNOMS QeadqeuuxzR120-BIK WHITE MULBERRY<0.10Class 0 kU/LNOMS OwdmdtkruyE416-ENV RAGWEED, SHORT<0.10Class 0 kU/LNOMS Healthcare T379-DEE THISTLE, MALDIVIAN<0.10Class 0 kU/LNOMS ZzxibnwrdbL412-PYJ PIGWEED, COMMON<0.10Class 0 kU/LNOMS FtclbqjdlqJ323-VOM SHEEP SORREL<0.10Class 0 kU/LNOMS HealthcareCLINISYNCNOMS HealthcarePATHOLOGY REQUEST FOR LAB CORPon 08-20-2024 PATHOLOGY REQUEST FOR LAB [facility] HealthcareComment on above:See report. Scanned copy available in EMR.PATHOLOGY AMBULATORY SPECIMENBerger HospitalNo Panel InformationOrdered By: KIM BURNETTE on 08-15-2024 Miscellaneous Pathology TestSee commentKindred HealthcareComment on above:See report. Scanned copy available in EMR.Pathology Request for Lab Corpon [id number] Request for Lab [facility] Physician GroupComment on above:Order Comment: PATHOLOGY AMBULATORY SPECIMENResult Comment: See report. Scanned copy available in EMR. PERFORMED BY: [place] [address] PATHOLOGIST [employer] DEMETRIS VASQUEZ M.D.Performed By: #### PATH TO [facility] #### [place] [address] USAALL CBC WITH AUTO DIFFon [id number] ABSOLUTE AUTO 0NOMS HealthcareBasophils/100 WBC (Bld)0.8 %0.2 - 2.0 %NOMS Healthcare Eosinophils/100 WBC (Bld)2.5 %0.9 - 7.0 %NOMS HealthcareErythrocyte distribution width (RBC) [Ratio]12.7 %11.0 - 15.0 %[facility] CenterHematocrit (Bld) [Volume fraction]39.7 %36.0 - 48.0 %[facility] CenterHemoglobin (Bld) [Mass/Vol]13.2 g/dL 12.0 - 16.0 g/dLHedrick Medical CenterIMMATURE GRANULOCYTES ABS AUTO0.01NOPutnam [facility] Hospital Interpretation and review of laboratory resultsAbnormalHedrick Medical Center LYMPHOCYTES ABSOLUTE AUTO1.8NOPutnam County Memorial HospitalLymphocytes/100 WBC (Bld)36.2 %20.5 - 60.0 %[facility] CenterH (RBC) [Entitic mass]31.7 pg26.7 - 34.0 pgResearch Psychiatric CenterHC (RBC) [Mass/Vol]33.2 g/dL29.9 - 35.2 g/dLHedrick Medical CenterMCV (RBC) [Entitic vol]95.2 fL81.0 - 99.0 fLHedrick Medical CenterMONOCYTES ABSOLUTE AUTO0.3NOIA HealthcareMonocytes/100 WBC (Bld)6.4 %1.7 - 12.0 %[facility] CenterNEUTROPHILS ABSOLUTE AUTO2.6NOMS HealthcareNeutrophils/100 WBC (Bld)53.9 %43.0 - 75.0 %[facility] Medical CenterPlatelet mean volume (Bld) [Entitic vol]10 fL9.5 - 13.5 fLMS [facility] HospitalTBH EO #0.1NOMS HealthcareTB KQX714NZVC [facility] HospitalTB RBC4.17LowNOMS [facility]leness HospitalTB WBC4.8NOPutnam County Memorial HospitalCLINISYNCNOMS HealthcareBasophils Auto (Bld) [#/Vol]on 17-70-9986Uqavpvfnt (Bld) [#/Vol]Automated basophil count0.0-0.1 [facility] HealthcareBasophils/100 WBC Auto (Bld)on 08-05-2024 Basophils/100 WBC (Bld)Automated basophil %0.2-2.0[facility] HealthcareECG 12-LEADon 29-63-2243[address] [address] Electrocardiograph Report Signed Patient: PATTY GAXIOLA MR#: [id number] : 1970 Acct:[id number] Age/Sex: 54 / F ADM Date: 08/05/24 Loc: PST Attending Dr: Kim Burnette M.D. Ordering Physician: Kim Burnette M.D. Date of Service: 08/05/24 Procedure(s): ECG 12 lead Accession Number(s): [id number] cc: [facility] Test Date: 2024-08-05 Pat Name: PATTY GAXIOLA Department: Room: - Gender: Female Disc Recordist: : 1970 Requested By: XIOMARA AARON Order Number: [id number] Reading MD: CYRUS MUNOZ Measurements Intervals [place] Rate: 60 P: 74 GA: 143 QRS: 70 QRSD: 100 T: 67 QT: 422 QTc: 422 Interpretive Statements SINUS RHYTHM INCOMPLETE RIGHT BUNDLE BRANCH BLOCK [90+ ms QRS DURATION, TERMINAL R IN V1/V2, 40+ ms S IN I/aVL/V4/V5/V6] No previous ECG available for comparison Electronically Signed On 08-05-2024 20:24:40 EST by CYRUS MUNOZ Dictated By: Cyrus Munoz D.O. Signed By: 08/05/242023 DD/ 0 TD/TT: Production Floater:TBHRadiology, Radiologist, MD - 08/05/2024 [place] [address] Electrocardiograph Report Signed Patient: PATTY GAXIOLA MR#: [id number] : 1970 Acct:[id number] Age/Sex: 54 / F ADM Date: 08/05/24 Loc: PST Attending Dr: Kim Burnette M.D. Ordering Physician: Kim Burnette M.D. Date of Service: 08/05/24 Procedure(s): ECG 12 lead Accession Number(s): [id number] cc: [facility] Test Date: 2024-08-05 Pat Name: PATTY GAXIOLA Department: Room: - Gender: Female Disc Recordist: : 1970 Requested By: XIOMARA AARON Order Number: [id number] Reading MD: CYRUS MUNOZ Measurements Intervals [place] Rate: 60 P: 74 GA: 143 QRS: 70 QRSD: 100 T: 67 QT: 422 QTc: 422 Interpretive Statements SINUS RHYTHM INCOMPLETE RIGHT BUNDLE BRANCH BLOCK [90+ ms QRS DURATION, TERMINAL R IN V1/V2, 40+ ms S IN I/aVL/V4/V5/V6] No previous ECG available for comparison Electronically Signed On 08-05-2024 20:24:40 EST by CYRUS MUNOZ Dictated By: Cyrus Munoz D.O. Signed By: 08/05/242023 DD/ 0 TD/TT: Production Floater: [facility]ITALJose HealthcareRadiology Study observation (narrative)[facility] HealthcareEC 12-LEAD Ordered By: Radiologist Radiology on 34-05-0209FBZD Healthcare Work Phone: Eosinophils/100 WBC Auto (Bld)on 08-05-2024 Eosinophils/100 WBC (Bld)Automated eosinophil %0.9-7.0[facility] HealthcareErythrocyte distribution width Auto (RBC) [Ratio]on 23-87-0426Dcnzavfxvsw distribution width (RBC) [Ratio]Erythrocyte distribution width [Ratio] by Automated count11.0-15.0[facility] HealthcareHematocrit Auto (Bld) [Volume fraction]on 15-75-6278Irwjyhxfmk (Bld) [Volume fraction]Hematocrit [Volume Fraction] of Blood by Automated count36.0-48.0[facility] HealthcareHemoglobin [Mass/volume] in Bloodon 68-05-3948Czplbewlkk (Bld) [Mass/Vol] Hemoglobin [Mass/volume] in Blood12.0-16.0[facility] - Hematology and Cell countson 77-43-0938Chdawreu granulocytes/100 WBC (Bld)0.2 %0.0-0.5NOPutnam County Memorial HospitalLeukocytes [#/volume] corrected for nucleated erythrocytes in Blood by Automated counon 91-39-2672QLW corrected for nucl RBC Auto (Bld) [#/Vol]Leukocytes [#/volume] corrected for nucleated erythrocytes in Blood by Automated coun4.0-11.0[facility] Lymphocytes Auto (Bld) [#/Vol]on 59-74-8074Tmuawhyyngv (Bld) [#/Vol]Lymphocytes [#/volume] in Blood by Automated count1.2-3.8[facility] Lymphocytes/100 WBC Auto (Bld)on 65-73-6271Yrknpntcreg/100 WBC (Bld) Lymphocytes/100 leukocytes in Blood by Automated count20.5-60.0[facility] HospitalH Auto (RBC) [Entitic mass]on 10-37-7259VJY (RBC) [Entitic mass]MCH [Entitic mass] by Automated count26.7-34.0[facility] HealthcareMCHC Auto (RBC) [Mass/Vol]on 20-61-8917VYZG (RBC) [Mass/Vol]MCHC [Mass/volume] by Automated count29.9-35.2FMercy Health Defiance HospitalMCV Auto (RBC) [Entitic vol]on 74-22-4949SVS (RBC) [Entitic vol]MCV [Entitic volume] by Automated count81.0-99.0[facility] HealthcareMonocytes Auto (Bld) [#/Vol]on 32-39-0377Ledztvxjl (Bld) [#/Vol]Automated blood monocyte count0.3-0.8 [facility] HealthcareMonocytes/100 WBC Auto (Bld)on 08-05-2024 Monocytes/100 WBC (Bld)Automated monocyte %1.7-12.0[facility] HealthcareNeutrophils Auto (Bld) [#/Vol]on 37-68-7226Qzgaciucifs (Bld) [#/Vol] Neutrophils [#/volume] in Blood by Automated count1.4-6.5FMercy Health Defiance HospitalNeutrophils/100 WBC Auto (Bld)on 19-85-3406Hhpvkiycuqi/100 WBC (Bld)Automated neutrophil %43.0-75.0[facility] HealthcareNo Panel Informationon 74-78-5714Zswcivltixf # (Auto)0.1 10 3/uL0.0-0.7FMercy Health Defiance HospitalImmature Granulocyte # (Auto)0.01 10 3/uL0.00-0.03[facility] HealthcarePlatelet mean volume Auto (Bld) [Entitic vol]on 52-75-7182Lswvhdsp mean volume (Bld) [Entitic vol]Platelet mean volume [Entitic volume] in Blood by Automated count9.5-13.5FMercy Health Defiance Hospital Platelets Auto (Bld) [#/Vol]on 18-74-9956Ejvzzzmjx (Bld) [#/Vol]Platelets [#/volume] in Blood by Automated -173KshawixlkKindred Healthcare RBC Auto (Bld) [#/Vol]on 55-17-1121EJQ (Bld) [#/Vol]Erythrocytes [#/volume] in Blood by Automated countLow4.20-5.40Kindred HealthcareXR Sinuses 3 Viewson 65-67-7411[place] [address] XRay Report Signed Patient: PATTY GAXIOLA MR#: [id number] : 1970 Acct:[id number] Age/Sex: 54 / F ADM Date: 06/20/24 Loc: LAB Attending Dr: Kim Burnette M.D. Ordering Physician: Kim Burnette M.D. Date of Service: 06/20/24 Procedure(s): XR sinus min 3V Accession Number(s): [id number] cc: Xiomara Aaron M.D.; Kim Burnette M.D. [facility] [place] [id number] Patient Name: PATTY GAXIOLA MRN: [id number] date: 1970 Sex: F Assigned Patient Location: LAB Current Patient Location: Accession/Order Number: [id number] Exam Date: 06/20/2024 14:49 Report Date: 06/22/2024 06:55 At the request of: KIM BURNETTE Procedure: XR sinus min 3V EXAMINATION: XR sinus min 3V HISTORY: Chronic Sinusitis COMPARISON: No relevant comparison available. FINDINGS: MAXILLARY: No mucosal thickening or fluid level. ETHMOID: No mucosal thickening or fluid level. FRONTAL: No mucosal thickening or fluid level. SPHENOID: No mucosal thickening or fluid level. OTHER: Negative. XR/XR sinus min 3V IMPRESSION: 1. No radiographic evidence of acute or significant chronic sinusitis. Electronically authenticated by: JOSE RODRIGUEZ Date: 06/22/2024 06:55 Dictated By: Jose Rodriguez M.D. Signed By: 06/22/24656 DD/ 4 TD/TT: Production Floater:TAVONadiologedna, Radiologist, - 06/22/2024 [place] [address] XRay Report Signed Patient: PATTY GAXIOLA MR#: [id number] : 1970 Acct:[id number] Age/Sex: 54 / F ADM Date: 06/20/24 Loc: LAB Attending Dr: Kim Burnette M.D. Ordering Physician: Kim Burnette M.D. Date of Service: 06/20/24 Procedure(s): XR sinus min 3V Accession Number(s): [id number] cc: Xiomara Aaron M.D.; Kim Burnette M.D. [facility] [place] [id number] Patient Name: PATTY GAXIOLA MRN: [id number] date: 1970 Sex: F Assigned Patient Location: LAB Current Patient Location: Accession/Order Number: [id number] Exam Date: 06/20/2024 14:49 Report Date: 06/22/2024 06:55 At the request of: KIM BURNETTE Procedure: XR sinus min 3V EXAMINATION: XR sinus min 3V HISTORY: Chronic Sinusitis COMPARISON: No relevant comparison available. FINDINGS: MAXILLARY: No mucosal thickening or fluid level. ETHMOID: No mucosal thickening or fluid level. FRONTAL: No mucosal thickening or fluid level. SPHENOID: No mucosal thickening or fluid level. OTHER: Negative. XR/XR sinus min 3V IMPRESSION: 1. No radiographic evidence of acute or significant chronic sinusitis. Electronically authenticated by: JOSE RODRIGUEZ Date: 06/22/2024 06:55 Dictated By: Jose Rodriguez M.D. Signed By: 06/22/2457 DD/ 4 TD/TT: Production Floater: ADELAIDA HealthcareRadiology Study observation (narrative)[facility]ELAIDA HealthcareXR Sinuses 3 ViewsOrdered By: Radiologist Radiology on 51-28-7404OHMV Healthcare Work Phone: mm TOMOSYNTHESIS SCREENING BIon 89-53-4349Byh[place] [address] Mammography Report Signed Patient: PATTY GAXIOLA MR#: [id number] : 1970 Acct:[id number] Age/Sex: 53 / F ADM Date: 01/12/24 Loc: MAMMO Attending Dr: Mary Suh Ordering Physician: Mary Suh Results: Date of Service: 01/12/24 Follow Up: Procedure(s): MM tomosynthesis screening BI Accession Number(s): [id number] cc: Mary Suh; Xiomara Aaron M.D. Patient Name: PATTY GAXIOLA MR#: [id number] : 1970 Exam Date: 01/12/2024 Ordering Doctor: FLO Suh . RADIOLOGY REPORT PROCEDURE: MM TOMOSYNTHESIS SCREENING BI COMPARISON: MG MAMM SCREEN 3D [place]WARD CAD, 01/09/2023. MG MAMM SCREEN 3D [place] CAD, 01/05/2022. MG MAMM SCREEN 3D [place] CAD, 01/04/2021. MG MAMM SCREEN 3D [place] CAD, 01/03/2020. INDICATIONS: Screening Z12.31 Calculator Name NCI Breast Cancer Risk Assessment Tool 5 Year Breast Cancer Risk 1.00% Lifetime Breast Cancer Risk 7.50% Personal Breast Cancer No Personal Ovarian Cancer No Treatments None Family Cancers None LOCATION: [facility] BREAST COMPOSITION: The breasts are heterogeneously dense,which may obscure small masses. FINDINGS: DIAGNOSTIC CATEGORY 2--BENIGN FINDING: RIGHT BREAST: No significant suspicious finding. Scattered benign-appearing calcifications are present. No significant change has occurred. LEFT BREAST: No significant suspicious finding. Scattered benign-appearing calcifications are present. No significant change has occurred. RECOMMENDATIONS: ROUTINE MAMMOGRAM AND CLINICAL EVALUATION IN 12 MONTHS. PLEASE NOTE: A NORMAL MAMMOGRAM DOES NOT EXCLUDE THE POSSIBILITY OF BREAST CANCER. A CLINICALLY SUSPICIOUS PALPABLE LUMP SHOULD BE BIOPSIED. Dictated by: Jose Rodriguez M.D. on 01/16/2024 at 11:21 Approved by: Jose Rodriguez M.D. on 01/16/2024 at 11:28 Dictated By: Jose Rodriguez M.D. Signed By: 01/16/24 1129 DD/ 1128 TD/TT: Production Floater:TBHRadiology, Radiologist, MD - 01/16/2024 [place] [address] Mammography Report Signed Patient: PATTY GAXIOLA MR#: [id number] : 1970 Acct:[id number] Age/Sex: 53 / F ADM Date: 01/12/24 Loc: MAMMO Attending Dr: Mary Suh Ordering Physician: Mary Suh Results: Date of Service: 01/12/24 Follow Up: Procedure(s): MM tomosynthesis screening BI Accession Number(s): [id number] cc: Mary Suh; Xiomara Aaron M.D. Patient Name: PATTY GAXIOLA MR#: [id number] : 1970 Exam Date: 01/12/2024 Ordering Doctor: FLO Suh . RADIOLOGY REPORT PROCEDURE: MM TOMOSYNTHESIS SCREENING BI COMPARISON: MG MAMM SCREEN 3D [place] CAD, 01/09/2023. MG MAMM SCREEN 3D [place] CAD, 01/05/2022. MG MAMM SCREEN 3D [place] CAD, 01/04/2021. MG MAMM SCREEN 3D [place] CAD, 01/03/2020. INDICATIONS: Screening Z12.31 Calculator Name NCI Breast Cancer Risk Assessment Tool 5 Year Breast Cancer Risk 1.00% Lifetime Breast Cancer Risk 7.50% Personal Breast Cancer No Personal Ovarian Cancer No Treatments None Family Cancers None LOCATION: [facility] BREAST COMPOSITION: The breasts are heterogeneously dense,which may obscure small masses. FINDINGS: DIAGNOSTIC CATEGORY 2--BENIGN FINDING: RIGHT BREAST: No significant suspicious finding. Scattered benign-appearing calcifications are present. No significant change has occurred. LEFT BREAST: No significant suspicious finding. Scattered benign-appearing calcifications are present. No significant change has occurred. RECOMMENDATIONS: ROUTINE MAMMOGRAM AND CLINICAL EVALUATION IN 12 MONTHS. PLEASE NOTE: A NORMAL MAMMOGRAM DOES NOT EXCLUDE THE POSSIBILITY OF BREAST CANCER. A CLINICALLY SUSPICIOUS PALPABLE LUMP SHOULD BE BIOPSIED. Dictated by: Jose Rodriguez M.D. on 01/16/2024 at 11:21 Approved by: Jose Rodriguez M.D. on 01/16/2024 at 11:28 Dictated By: Jose Rodriguez M.D. Signed By: 01/16/24 1129 DD/ 1128 TD/TT: Production Floater: [facility] CenterRadiology Study observation (narrative)[facility] TOMOSYNTHESIS SCREENING BIOrdered By: Radiologist Radiology on 70-00-2375HD[facility] Work Phone: XR DEXA AXIAL SKELETONon 48-04-2526[place] [address] XRay Report Signed Patient: PATTY GAXIOLA MR#: [id number] : 1970 Acct:[id number] Age/Sex: 53 / F ADM Date: 01/12/24 Loc: MAMMO Attending Dr: Mary Suh Ordering Physician: Mary Suh Date of Service: 01/12/24 Procedure(s): XR DEXA axial skeleton Accession Number(s): [id number] cc: Mary Suh; Xiomara Aaron M.D. [place] [id number] Patient Name: PATTY GAXIOLA MRN: [id number] date: 1970 Sex: F Assigned Patient Location: MAMMO Current Patient Location: MAMMO Accession/Order Number: [id number] Exam Date: 01/12/2024 08:20 Report Date: 01/12/2024 09:23 At the request of: MARY SUH Procedure: XR DEXA axial skeleton EXAMINATION: XR DEXA axial skeleton HISTORY: Postmenopausal state Z78.0 COMPARISON: No relevant comparison available. TECHNIQUE: Dual-energy X-ray absorptiometry (DXA) was performed. FINDINGS: SPINE ANALYSIS: Average bone mineral density is 1.199 g/cm2. T-score (standard deviation relative to young adult mean): 0.0 . +2.2% change since prior study. HIP ANALYSIS: Lowest bone mineral density is within the right femoral trochanter, 0.693 g/cm2. T-score (standard deviation relative to young adult mean): -1.4 . +1.7% change since prior study. XR/XR DEXA axial skeleton IMPRESSION: World Spencer Organization Classification: Osteopenia - Moderate Fracture Risk FRAX: Unable to calculate. Electronically authenticated by: JOSE RODRIGUEZ Date: 01/12/2024 09:23 Dictated By: Jose Rodriguez M.D. Signed By: 01/12/24924 DD/ 2 TD/TT: Production Floater:TBHRadiology, Radiologist, - 01/12/2024 [place] [address] XRay Report Signed Patient: PATTY GAXIOLA MR#: [id number] : 1970 Acct:[id number] Age/Sex: 53 / F ADM Date: 01/12/24 [facility] Mary Suh Ordering Physician: Mary Suh Date of Service: 01/12/24 Procedure(s): XR DEXA axial skeleton Accession Number(s): [id number] cc: Mary Suh; Xiomara Aaron M.D. [facility] [place] [id number] Patient Name: PATTY GAXIOLA MRN: [id number] date: 1970 Sex: F Assigned Patient Location: [facility] Current Patient Location: [facility] Accession/Order Number: [id number] Exam Date: 01/12/2024 08:20 Report Date: 01/12/2024 09:23 At the request of: MARY SUH Procedure: XR DEXA axial skeleton EXAMINATION: XR DEXA axial skeleton HISTORY: Postmenopausal state Z78.0 COMPARISON: No relevant comparison available. TECHNIQUE: Dual-energy X-ray absorptiometry (DXA) was performed. FINDINGS: SPINE ANALYSIS: Average bone mineral density is 1.199 g/cm2. T-score (standard deviation relative to young adult mean): 0.0 . +2.2% change since prior study. HIP ANALYSIS: Lowest bone mineral density is within the right femoral trochanter, 0.693 g/cm2. T-score (standard deviation relative to young adult mean): -1.4 . +1.7% change since prior study. XR/XR DEXA axial skeleton IMPRESSION: World Spencer Organization Classification: Osteopenia - Moderate Fracture Risk FRAX: Unable to calculate. Electronically authenticated by: JOSE RODRIGUEZ Date: 01/12/2024 09:23 Dictated By: Jose Rodriguez M.D. Signed By: 01/12/24924 DD/ 2 TD/TT: Production Floater: ADELAIDA [facility] HospitalRadiology Study observation (narrative)[facility] DEXA AXIAL SKELETONOrdered By: Radiologist Radiology on 79-65-5934G[employer] Work Phone: cortisol [Mass/Vol]on 58-43-4553WGBZSTTK1.4 ug/dL NormalProEastland Memorial HospitalComment on above:Result Comment: Due to the diurnal variation of cortisol levels in normal subjects, all cortisol measurements should be referenced to the time of day of sample collection. AM Cortisol Age>=6 6.7-22.4 ug/dL PM Cortisol Age>=6 <10 ug/dL Performed By: #### 2143-6 #### [facility] ([id number]) [address], [address] [place], [place] [address]NXFUQTRSCATSB ABon 31-26-2396Qybtuoyokjbnv Ab Qn[IU]/mLNormal <4.0[facility] HospitalComment on above:Performed By: #### 76217-5, 8098- 6, 8099-4 #### [facility] ([id number]) [address] [place] [address], [address] [place], [place] [address]IWKXUGEGKDESHPA ABon 60-33-5335AFX Ab Qn[IU]/mLNormal<10 [facility] Fabiola HospitalComment on above:Performed By: #### 94103-6, 8098-6, 8099-4 #### [facility] ([id number]) [address], [address] [place], [place] [address]Ncddicn D+Metabolites [Mass/Vol]on 07-01-5025OUXXOPK D 25 HYD TOT28.2 ng/pLAng75-371JdxXhjjme Fabiola HospitalComment on above:Result Comment: Vitamin D status 25 [place] Vitamin D Deficiency <20 ng/mL Insufficiency 20-29 ng/mL Sufficiency 30-100 ng/mL Toxicity >100 ng/mL NOTE: A pediatric reference range has not been established by the machinist apprentice wood of this kit. The [place] [employer] recommends a Vitamin D level of = or >20ng/mL in infants and children.Performed By: #### 89972-2, 8098-6, 8099-4 #### [facility] ([id number]) [address] [place] [address], [address] [place], [place] [address]DUG AUTO DIFFon 69-06-6813YQXX #0.1 103/ulNormal0.0-0.1Aden[facility] Regional Medical CenterComment on above:Performed By: #### CBC #### [facility] [address] [place] [address] Dr. Vasyl Wallssophils/100 WBC (Bld)1.0 %Normal0.2-2.0[facility] Comment on above:Performed By: #### CBC #### [facility] [address] [place] [address] Dr. Vasyl Palmer #0.1 103/ulNormal0.0-0.7The [facility] SystemComment on above: Performed By: #### CBC #### [facility] [address] [place] [address] [address] Vasyl Cooperosinophils/100 WBC (Bld)2.0 %Normal0.9-7.0[facility] Comment on above:Performed By: #### CBC #### [facility] [address] [place] [address] Dr. Vasyl Cooperrythrocyte distribution width (RBC) [Ratio]12.7 %Orttea07.0-15.0 [facility] SystemComment on above:Performed By: #### CBC #### [facility] [address] [place] [address] Dr. Vasyl IrvingHematocrit (Bld) [Volume fraction]42.6 %Hjelmd52.0-48.0The [facility] SystemComment on above:Performed By: #### CBC #### [facility] [address] [place] [address] Dr. Vasyl IrvingHemoglobin (Bld) [Mass/Vol]14.2 g/tZJhhghm22.0-16.0The [facility] Hospitalment on above:Performed By: #### CBC #### [facility] [address] [place] [address] Dr. Vasyl Evans #0.01 10e3/ulNormal0.00-0.03The [facility] Hospitalment on above:Performed By: #### CBC #### [facility] [address] [place] [address] Dr. Vasyl Evans %0.2 %Normal0.0-0.5The [facility] Hospitalment on above: Performed By: #### CBC #### [facility] [address] [place] [address] Dr. Vasyl BorreroH #2.2 103/ulNormal1.2-3.8The [facility] on above:Performed By: #### CBC #### [facility] [address] [place] [address] Dr. Vasyl Hatchmphocytes/100 WBC (Bld)42.2 %Mqexoh19.5-60.0The [facility] HospitalComment on above:Performed By: #### CBC #### [facility] [address] [place] [address] [address] Vasyl Vinson DIFF REQNONormalThe [facility] Health SystemComment on above: Performed By: #### CBC #### [facility] [address] [place] [address] Dr. Vasyl Calvin (RBC) [Entitic mass]31.7 euEwmgfs75.7-34.0The [facility] Wing HospitalComment on above:Performed By: #### CBC #### [facility] [address] [place] [address] Dr. Vasyl Calvin (RBC) [Mass/Vol]33.3 g/cJIxpsjs81.9-35.2The [facility] SystemComment on above:Performed By: #### CBC #### [facility] [address] [place] [address] Dr. Vasyl Calvin (RBC) [Entitic vol]95.1 vWRynqkk77.0-99.0The [facility] SystemComment on above:Performed By: #### CBC #### [facility] [address] [place] [address] Dr. Vasyl Jones #0.3 103/ulNormal0.3-0.8The [facility] SystemComment on above:Performed By: #### CBC #### [facility] [address] [place] [address] Dr. Vasyl Taylorocytes/100 WBC (Bld)5.9 %Normal1.7-12.0[facility] Comment on above:Performed By: #### CBC #### [facility] [address] [place] [address] Dr. Vasyl Cazares #2.5 103/ulNormal1.4-6.5The [facility] SystemComment on above:Performed By: #### CBC #### [facility] [address] [place] [address] Dr. Vasyl Rosenutrophils/100 WBC (Bld)48.7 %Gqkmkk47.0-75.0The [facility] SystemComment on above:Performed By: #### CBC #### [facility] [address] [place] [address] Dr. Vasyl Donahue mean volume (Bld) [Entitic vol]9.7 fLNormal9.5-13.5The [facility] SystemComment on above:Performed By: #### CBC #### [facility] [address] [place] [address] Dr. Vasyl IrvingPLT220 103/biKufezy730-438Pxa [facility] SystemComment on above: Performed By: #### CBC #### [facility] [address] [place] [address] Dr. Vasyl IrvingRBC4.48 106/ulNormal4.20-5.40The [facility] on above:Performed By: #### CBC #### [facility] [address] [place] [address] Dr. Vasyl IrvingWBC5.1 103/ulNormal4.0-11.0The [facility] on above: Performed By: #### CBC #### [facility] [address] [place] [address] Dr. Vasyl Diaz 79-61-4102FLG [Mass/Vol]mg/LNormal<=1.0The [facility] on above:Performed By: #### CRP, TSH #### [facility] [address] [place] [address] Dr. Vasyl Mesa RATE WESTERGRENon 26-49-1879QQA RATE13 mm/hrNormal<=30The [facility] on above:Performed By: #### SEDR #### [facility] [address] [place] [address] Dr. Vasyl Marshall 56-93-5547IMW8.088 uIU/mLNormal0.358-3.740The [facility] on above:Performed By: #### CRP, TSH #### [facility] [address] [place] [address] Dr. Vasyl IrvingMG MAMM SCREEN 3D EDWARD CADon 65-89-5211LJ MAMM SCREEN 3D EDWARD CAD Patient: PATTY GAXIOLA Exam Date: 01/09/2023 : 1970 Gender:F Ordering : DR TACOS TEE . Admission #: [id number] Family : Order #: [id number] CLICK HERE TO VIEW EXAM RADIOLOGY REPORT [...] Treatments None Family Cancers None LOCATION: [facility] BREAST COMPOSITION: Heterogeneously dense,which may obscure small [...] LUMP SHOULD BE BIOPSIED. Dictated by: Jose Rodriguez M.D. on 01/09/2023 at 11:53 Approved by: Jose Rodriguez M.D. on 01/09/2023 at 12:05[facility] ACOG PANEL 2: 30 to 65on 11-09-2022..NormalAdena Regional Medical Center Comment on above:Result Comment: Performed at: WBPerformed By: #### [id number] #### [facility] [address] [address] [address] Vasyl IrvingAge Gdln ACOG Rtnsbhd07-86OodqzdEopMercy Health Fairfield HospitalComment on above:Performed By: #### [id number] #### [facility] [address] [place], [place] [address] Dr. Vasyl IrvingDIAGNOSIS:CommentTrinity Health SystemComment on above: Result Comment: NEGATIVE FOR INTRAEPITHELIAL LESION OR MALIGNANCY. Performed at: WBPerformed By: #### [id number] #### [facility] [address] [place] [address] Dr. Vasyl Khan AptimaNegativeNormalNegativeThe [facility] on above:Result Comment: This nucleic acid amplification test detects fourteen high-risk HPV types (16,18,31,33,35,39,45,51,52,56,58,59,66,68) without differentiation. Performed at: =GPerformed By: #### [id number] #### [facility] [address] [place] [address] Dr. Vasyl Khan Genotype ReflexCommentNoProMedica Defiance Regional Hospital on above:Result Comment: Criteria not met, HPV Genotype not performed. Performed at: WBPerformed By: #### [id number] #### [facility] [address] [place] [address] Dr. Vasyl IrvingMethodology:CommentNoProMedica Defiance Regional Hospital on above: Result Comment: This liquid based ThinPrep(R) pap test was screened with the use of an image guided system. Performed at: WBPerformed By: #### [id number] #### [place] [address] [address] [address] Vasyl IrvingNote:CommentMercy Health on above:Result Comment: The Pap smear is a screening test designed to aid in the detection of premalignant and malignant conditions of the uterine cervix. It is not a diagnostic procedure and should not be used as the sole means of detecting cervical cancer. Both false-positive and false-negative reports do occur. . Performed at: WBPerformed By: #### [id number] #### [facility] [address] [place] [address] Dr. Vasyl IrvingPerformed by:CommentMercy Health on above: Result Comment: [employer]attie [employer] ([employer]) Performed at: WBPerformed By: #### [id number] #### [facility] [address] [place] [address] Dr. Vasyl Novoa adequacy:CommentTrinity Health SystemComment on above:Result Comment: Satisfactory for evaluation. No endocervical cells are present. This is consistent with a history of hysterectomy. Performed at: WBPerformed By: #### [id number] #### [facility] [address] [address] [address] Vasyl Xavier CULTUREon 96-45-6566Tdupoylfhxvtx CultureFinal reportNormal [facility] CenterComment on above:Performed By: #### CXSTOOL #### [facility] [address] [address] [address] Vasyl Cooper coli Shiga Toxin EIANegativeNoalNegativeAdena Regional Medical Center Comment on above:Performed By: #### CXSTOOL #### [facility] [address] [address] [address] Vasyl Tiwari 1CommentNoMercy Health Fairfield HospitalComment on above:Result Comment: No Salmonella or Shigella recovered.Performed By: #### CXSTOOL #### [facility] [address] [address] [address] Vasyl Tiwari Comment: No Campylobacter species isolated. Salmonella/Shigella ScreenFinal reportNoMercy Health Fairfield HospitalComment on above:Performed By: #### CXSTOOL #### [facility] [address] [address] [address] Vasyl IrvingUrinalysis - AUTOMATEDon 48-35-7860Mcifbvlmzp (U)thickNoAugustine Temperature Management Other Bilirubin Ql (U)NegativeAugustine Temperature Management Other Color (U)red/orangeAugustine Temperature Management Other Glucose Ql (U)100NoAugustine Temperature Management Other Hemoglobin Ql (U)moderateNoAugustine Temperature Management Other Ketones Ql (U)traceAugustine Temperature Management Other Leukocyte esterase Test strip Ql (U)largeNoellett memorial hospital [place] Other Nitrite Ql (U)PositiveSioux Falls [place] Other pH (U)5.0 [pH][facility] [employer] Other Protein Ql (U)100[facility] [place] Other Specific gravity (U) [Rel density]1.010[facility] [place] Other Urobilinogen (U) [Mass/Vol]2.0 mg/dLNoellett memorial hospital [place] Other Urinalysis - AUTOMATEDSioux Falls [place] Other DIGITAL MAMM SCREENING W/ TOMOon 94-22-5029GMAKXBY MAMM SCREENING W/ TOMOMRN: [id number] Patient Name: PATTY GAXIOLA STUDY: Digital mammography screening with jf; 01/04/2021 9:17 am ACCESSION NUMBER(S): [id number] ORDERING CLINICIAN: FELY MONROY INDICATION: Screening. COMPARISON: [...] Year Screening. 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 : Annual Screening Mammogram Provider Impressions Impression:. Thorough vaginal colposcopy revealed no gross abnormalities, no acetowhite change, andno abnormal iodine staining. No biopsies taken. Reviewed findings with pt. and recommend repeat papin 1 year. Chief Complaint Patient presents today [...] DIRECTED. Vitals Vital Signs Recorded: 15Dec2020 08:54AM Hdaxdfkzgkl89.8 F Wjkppmvj356 Ctbgaoqsq44 Height5 ft 7.5 in Urszua395 lb 3.65 oz BMI Fcwsjyhksh92.33 BSA Calculated1.74 LMPhsyter Physical Exam A+O x [...] obtained prior to the procedure and is (morecontent not included)...Normal TouchworksOB/APPROVER - Office Visiton 80-27-0066QF/APPROVER - Office VisitChief Complaint PATIENT HERE TODAY FOR ANNUAL EXAM, [...] 4 times daily PRN abdominal cramping; Therapy: 28Jjz8101 to (Evaluate:20Nbz6926) Requested for: 23Ifu7113; Last Rx:73Cvj1955 Ordered Rx By: Yan Winslow; Dispense: 8 Days ; #:30 Tablet; Refill: 1;For: Epigastric pain; ELADIO = N; Ver[facility] to [facility]; Last Updated By: [employer]; 05/06/2020 11:44:32AM Famotidine 20 MG Oral Tablet; Take 1 tablet twice daily; Therapy: 52Cxg0152 to (Evaluate:56Owm1535) Requested for: 90Qzs9801; Last Rx:30Nht3225 Ordered Rx By: Yan Winslow; Dispense: 30 Days ; #:60 Tablet; Refill: 1;For: Epigastric pain; ELADIO = N; Verified Transmission to [facility]; Last Updated By: [employer]; 05/06/2020 11:44:29 AM Nortriptyline HCl - 25 MG Oral Capsule; TAKE 1 CAPSULE AT BEDTIME; Therapy: 46Thh5956 to (Evaluate:19Oct2020) Requested for: 89Jby7006; Last Rx:25Oct2019 Ordered Rx By: Yan Winslow; Dispense: 90 Days ; #:90 Capsule; Refill: 3;For: Health Maintenance; ELADIO =N; Verified Transmission to [facility]167; Last Updated By: [employer]; 10/25/2019 11:30:52 AM Pantoprazole Sodium 40 MG Oral Tablet Delayed Release; TAKE 1 TABLET DAILY Requested for: 03Feb2020; Last Rx:50Pgm6336 Ordered Rx By: Yan Winslow; Dispense: 90 Days ; #:90 Tablet; Refill: 3;For: Health Maintenance; ELADIO = N; Verified Transmission to [facility]; Last Updated By: [employer]; 02/03/2020 11:36:26 AM Levothyroxine Sodium 100 MCG Oral Tablet; TAKE 1 TABLET DAILY Requested for: 03Feb2020; Last Rx:03Feb2020 Ordered Rx By: Yan Winslow; Dispense: 90 Days ; #:90 Tablet; Refill: 3;For: Hypothyroidism, unspecified type; ELADIO = N; Verified Transmission to [facility]; Last Updated By: [employer]; 02/03/2020 11:36:28 AM Oxybutynin (more content not included)...NormalUH TouchworksCBC AND DIFFERENTIAL on 51-03-4954Kyxlnhtxc (Bld) [#/Vol]0.00 10*3/uLNormal0.00 - 0.10[facility] on above:Performed By: #### CBCDF #### [address] [address]Nkcwjbjel/100 WBC (Bld)0.7 %Normal0.0 - 2.0[facility] Hospitalment on above:Performed By: #### CBCDF #### [address] [address]Hdnspiybpey (Bld) [#/Vol]0.10 10*3/uLNormal0.00 - 0.70[facility] on above:Performed By: #### CBCDF #### [address] [address]Dwmumzkdcoo/100 WBC (Bld)2.2 %Normal0.0 - 6.0[facility] Regional HealthComment on above:Performed By: #### CBCDF #### [address] [address]Uombecamxny distribution width (RBC) [Ratio]13.6 %Ztiuwx91.5 - 14.5[facility] Regional HealthComment on above:Performed By: #### CBCDF #### [address] [address]Jmozahcbbh (Bld) [Volume fraction]43.7 %Ojuuvp04.0 - 46.0 [facility] HealthComment on above:Performed By: #### CBCDF #### [address] [address]Hpbukasube (Bld) [Mass/Vol]14.4 g/zBFfejct05.0 - 16.0[facility] Regional HealthComment on above:Performed By: #### CBCDF #### [address] [address]Hsusymlvkwe (Bld) [#/Vol]1.80 10*3/uLNormal1.20 - 4.80[facility] Regional HealthComment on above:Performed By: #### CBCDF #### [address] [address]Xivazidbveu/100 WBC (Bld)30.2 %Vcrnna98.0 - 44.0[facility] Regional HealthComment on above:Performed By: #### CBCDF #### [address] [address]CDMQ (RBC) [Mass/Vol]32.9 g/nDNyzndm39.0 - 36.0[facility] Regional HealthComment on above:Performed By: #### CBCDF #### [address] [address]TDT (RBC) [Entitic vol]97 zZBuyjck13 - 100[facility] Regional HealthComment on above:Performed By: #### CBCDF #### [address] [address]Rslffokik (Bld) [#/Vol]0.30 10*3/uLNormal0.10 - 1.00[facility] Regional HealthComment on above:Performed By: #### CBCDF #### [address] [address]Xywazhcah/100 WBC (Bld)5.6 %Normal2.0 - 10.0[facility] HealthComment on above:Performed By: #### CBCDF #### [address] [address]Lzcdcekioyw (Bld) [#/Vol]3.60 10*3/uLNormal1.20 - 7.70SaPe[facility] Harbor Hospital HealthComment on above:Result Comment: Percent differential counts (%) should be interpreted in the context of the absolute cell counts (cells/L).Performed By: #### CBCDF #### [address] [address]Tduqkbtfvyn/100 WBC (Bld)61.3 %Tctxvc30.0 - 80.0[facility] HealthComment on above:Performed By: #### CBCDF #### [address] [address]Dagsramfn (Bld) [#/Vol]224 10*3/kKMunuwu367 - 450SaPeace Harbor Hospital HealthComment on above:Performed By: #### CBCDF #### [address] [address]IZL1.52 x10E12/LNormal4.00 - 5.20S[facility] Health Comment on above:Performed By: #### CBCDF #### [address] [address]LNY (Bld) [#/Vol]5.8 10*3/uLNormal4.4 - 11.3SFormerly West Seattle Psychiatric HospitalComment on above:Performed By: #### CBCDF #### [address] [address]HRXYOSIQZMIDQ PANELon 79-35-6712Bqdresf [Mass/Vol]4.2 g/dL Normal3.4 - 5.0[facility] Regional HealthComment on above:Performed By: #### CMP #### [address] [address]VBH [Catalytic activity/Vol]64 U/EGcmdhs40 - 110[facility] HealthComment on above:Performed By: #### CMP #### [address] [address]GKW [Catalytic activity/Vol]17 U/LNormal7 - 45[facility] Regional HealthComment on above:Result Comment: Patients treated with Sulfasalazine may generate falsely decreased results for ALT.Performed By: #### CMP #### [address] [address]Vgmhx gap [Moles/Vol]10 mmol/BOikneb23 - 20[facility] CenterComment on above:Performed By: #### CMP #### [address] [address]QWM [Catalytic activity/Vol]23 U/LNormal9 - 39[facility] Cherry HillComment on above:Performed By: #### CMP #### [address] [address]Vxraydvme [Mass/Vol]0.6 mg/dLNormal0.0 - 1.2[facility] CenterComment on above:Performed By: #### CMP #### [address] [address]Nbhsigb [Mass/Vol]9.3 mg/dLNormal8.6 - 10.3[facility] CenterComment on above:Performed By: #### CMP #### [address] [address]Cnzzcoov [Moles/Vol]103 mmol/KLjvkmn24 - 107[facility] CenterComment on above:Performed By: #### CMP #### [address] [address]Rdvuxcnemg [Mass/Vol]0.55 mg/dLNormal0.50 - 1.05[facility] CenterComment on above:Performed By: #### CMP #### [address] [address]ISA-DWGVHEH AM.>60Normal>60[facility] Regional HealthComment on above:Result Comment: CALCULATIONS OF ESTIMATED GFR ARE PERFORMED USING THE MDRD STUDY EQUATION FOR THE IDMS-TRACEABLE CREATININE METHODS. CLIN CHEM 2007;53:766-72Performed By: #### CMP #### [address] [address]GHU-MVR AM.>60Normal>60[facility] Regional HealthComment on above:Performed By: #### CMP #### [address] [address]Lhrqutm [Mass/Vol]58 mg/dLLow74 - 99[facility] Health Comment on above:Performed By: #### CMP #### [address] [address]OJW4 (Bld) [Moles/Vol]30 mmol/YRircvx61 - 32[facility] Regional HealthComment on above:Performed By: #### CMP #### [address] [address]Bqhqdpmid [Moles/Vol]4.0 mmol/LNormal3.5 - 5.3[facility] Regional HealthComment on above:Performed By: #### CMP #### [address] [address]Eyueqci [Mass/Vol]6.7 g/dLNormal6.4 - 8.2[facility] Regional HealthComment on above:Performed By: #### CMP #### [address] [address]Vgupur [Moles/Vol]139 mmol/JKiursv943 - 145[facility] Regional HealthComment on above:Performed By: #### CMP #### [address] [address]Cgac nitrogen [Mass/Vol]14 mg/dLNormal6 - 23[facility] Regional HealthComment on above:Performed By: #### CMP #### [address] [address]NBPKUTcs 68-77-1109Uzlnxz [Catalytic activity/Vol]22 U/LNormal9 - 82[facility] on above:Result Comment: Venipuncture immediately after or during the administration of Metamizole may lead to falsely low results. Testing should be performed immediately prior to Metamizole dosing.Performed By: #### AMMY #### [facility] [address] [place], [place] [address]Vutqpa Visit (Primary Care Txt/Forms)on 29-87-8221Voficu-up visitDiagnoses/Problems Assessed Epigastric pain (789.06) (R10.13) Fatigue (780.79) (R53.83) Nausea in adult (787.02) (R11.0) Orders Epigastric pain Start: Dicyclomine HCl - 20 MG Oral Tablet; TAKE 1 TABLET 4 times daily PRN abdominal cramping Complete Blood Count + Differential; Status:Active; Requested for:66Zbx4681; Start: Famotidine 20 MG Oral Tablet; Take 1 tablet twice daily Comprehensive Metabolic Panel; Status:Active; Requested for:08Rrt6769; Lipase, Serum; Status:Active; Requested for:12Thp0331; Epigastric pain, Nausea in adult Gastroenterology Referral Evaluation and Treatment Evaluate AND Treat Status: Active Requested for: 25Kpx5833 Chief Complaint nausea x 2 weeks but [...] diarrhea, nausea and bloating, but no heartburn, noblood in stools, no dysphagia and no vomiting. [...] Allergies Medication erythromycin Vitals Vital Signs Recorded: 22Vzv6601 11:21AM Temperature: 97.3 F Heart Rate: 70 [...] rhythm, No murmur, N (more content not included)...NormalUH TouchworksOB/APPROVER - Office Visiton 75-84-8735QQ/APPROVER - Office VisitChief Complaint Patient is here to discuss her menopause symptoms. 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 Patient is having mood swings, vaginal dryness, hot flashes, night sweats, can't sleep, brain fog, weight gain, and pain with intercourse. History of Present IllnessPatient presents noticing increased menopausal symptoms, vaginal dryness,discomfort with intercourse due to dryness that has [...] #:90 Capsule; Refill: 3;For: Health Maintenance; ELADIO =N; [facility]; Last Updated By: [employer]; 10/25/2019 11:30:52 AM Oxybutynin Chloride 5 MG Oral Tablet; Take 1 tablet daily Requested for: 03Feb2020; Last Rx:03Feb2020 Ordered Rx By: Yan Winslow; Dispense: 90 Days ; #:90 Tablet; Refill: 3;For: Health Maintenance; ELADIO = N; Verified Transmission to [facility]; Last Updated By: [employer]; 02/03/2020 11:36:38 AM Pantoprazole Sodium 40 MG Oral Tablet Delayed Release; TAKE 1 TABLET DAILY Requested for: 03Feb2020; Last Rx:[id number] Ordered Rx By: Yan Winslow; Dispense: 90 Days ; #:90 Tablet; Refill: 3;For: Health Maintenance; ELADIO = N; Verified Transmission [facility]; Last Updated By: [employer]; 02/03/2020 11:36:26 AM Levothyroxine Sodium 100 MCG Oral Tablet; TAKE 1 TABLET DAILY Requested for: 03Feb2020; Last Rx:03Feb2020 Ordered Rx By: Yan Winslow; Dispense: 90 Days ; #:90 Tablet; Refill: 3;For: Hypothyroidism, unspecified type; ELADIO = N; Verified Transmission to [facility] #7417; Last Updated By: Wang Wolf; 02/03/2020 11:36:28 AM Olopatadine HCl - 0.1 % Ophthalmic Solution; Therapy: 86Rde0781 to Recorded Rx By: BECCA; Dispense: 30 [...] 11/07/2018 8:35:43 AM Vitals Vital Signs Recorded: 28Dfj6866 01:13PM Smhaafbrgcm79.1 F Oyouurxa651 Zruztfmjj82 Height5 ft 7.5 in Nraedt30.8 kg BMI Fgxyuppxes15.72 BSA Calculated (more content not included)...NormalUH TouchworksPrimary Care Visit (Text/Forms)on 12-04-1970Twhytzo Care Visit (Text/Forms)Diagnoses/Problems Assessed Sunburn, blistering (692.76) (L55.1) Orders Health [...] MD; Feb 03 2020 11:39AM EST (Author) [facility] TouchworksProvider Note - ED v2on 86-72-7576Hwijcggk Note - ED v2 Provider Note - ED v2: Chart Review: HISTORY OF PRESENTING ILLNESS PATTY is a 49 year old Female and was seen by me at 28-Jan-2020 10:18 for a chief complaint of (Sunburn). Other complaints include: Patient presents for evaluation of sunburn. Patient was on [place] 2 days ago and 3 days ago and now reports sunburn covering entire body. Patient reports focus of the burn over bilateral hips, bilateral lower legs, and bilateral shoulders. Patient reports vesicular formation in these areas. Patient has increased fluid intake and is taking cayf-vrr-tkzxoue medications with little relief. No other complaints.. 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 COMPARISON:04/22/2016 ORDERING CLINICIAN:JAVAD MARTIN TECHNIQUE:CTof the abdomen and pelvis was performed. Standard [...] unremarkable. REPRODUCTIVE ORGANS:No definite masses. BOWEL:No evidence ofbowel obstruction. No focal inflammatory changes.Colonic stool. Unremarkable appendix. VESSELS:Retroaortic left renal vein. Normal caliber aorta. PERITONEUM/RETROPERITONEUM/LYMPH NODES:No retroperitoneal adenopathy. No ascites. BONES AND ABDOMINAL WALL:Grossly unremarkable. IMPRESSION:No acute abnormalities within the abdomen or the pelvis.Electronically signed by: BLANCA 06/05/19 16:54NormalCommunity [facility] [place] Work Phone: please click on the link to view the study images [facility] Work Phone: cLOST DIFF. TOXIN, PCRon 06-04-2019C. difficile toxin genes SANAM+probe Ql (Stl)CancelDoctor's Hospital [facility] Work Phone: comment on above:This assay detects the presence of the tcdB (toxin B) gene via DNA amplification, and results should be interpreted in the context of the patients history and clinical findings. This test cannot be performed on formed stools or used as a test of cure, and should not be performed more than once per 7 days.TEST CLOST DIFF. TOXIN, PCR WAS CANCELLED, 06/05/2019 01:14 ONLY PAM-RADHA AND PARA-MARTINA RECEIVED. NEED FRESH STOOL FOR PROPER TESTING.CLOST DIFF. TOXIN, PCRCancelDoctor's Hospital [facility] Work Phone: comment on above:TEST CLOST DIFF. TOXIN, PCR WAS CANCELLED, 06/05/2019 01:14 ONLY PAM-RADHA AND PARA-MARTINA RECEIVED. NEED FRESH STOOL FOR PROPER TESTING.Otheron 35-94-7385FqkopzsiMZCYYXRRPHCommunity Hospital [facility] [place] Work Phone: comment on above:SOURCE:STOOL PATHOGEN PCR PANELon 31-20-3052Vyefztnntkmka sp DNA.diarrheagenic SANAM+probe Ql (Stl)NOT DETECTEDSee BelowCommunity Hospital – [facility] [place] Work Phone: comment on above:Reference Range: NOT DETECTEDE. coli stx1 gene SANAM+probe Ql (Unsp spec)NOT DETECTEDSee [facility] Work Phone: comment on above:Reference Range: NOT DETECTEDE. coli stx2 gene SANAM+probe Ql (Unsp spec)NOT DETECTEDSee [facility] Work Phone: comment on above:Reference Range: NOT DETECTED Norovirus genogroup I and II RNA SANAM+probe Nom (Stl)NOT DETECTEDSee [facility] Work Phone: comment on above:Reference Range: NOT DETECTED Rotavirus RNA SANAM+probe Nom (Stl)NOT DETECTEDSee [facility] Work Phone: comment on above:Reference Range: NOT DETECTED The enteric PCR panel [...] time for other enteric agents in this panel.Shigella sp DNA SANAM+probe Ql (Unsp spec)NOT DETECTEDSee [facility] Work Phone: comment on above:Reference Range: NOT DETECTEDVibrio sp DNA SANAM+probe Nom (Unsp spec)NOT DETECTEDSee [facility] Work Phone: comment on above:Reference Range: NOT DETECTEDYersinia sp DNA SANAM+probe Nom (Unsp spec)NOT DETECTEDSee [facility] Work Phone: comment on above:SOURCE: Reference Range: NOT DETECTED STOOL PATHOGEN PCR PANELNOT DETECTEDSee [facility] Work Phone: comment on above:Reference Range: NOT DETECTEDComplete Blood Count + Differentialon 78-15-6267Tnsjwixtk (Bld) [#/Vol]0.00 {x10E9/L}See [facility] Work Phone: Comment on above:Reference Range: 0.00 - 0.10 Basophils/100 WBC (Bld)0.9 %0.0 - 2.0-[facility] Work Phone: Eosinophils (Bld) [#/Vol]0.10 {x10E9/L}See BelowMOUNTAIN VIEW [facility] Medical [facility] Work Phone: [phone] on above:Reference Range: 0.00 - 0.70 Eosinophils/100 WBC (Bld)1.7 %0.0 - 6.0-Medical [facility] Work Phone: Erythrocyte distribution width (RBC) [Ratio]13.4 %See BelowCommunity Hospital [facility] [place] Work Phone: Comment on above:Reference Range: 11.5 - 14.5 Hematocrit (Bld) [Volume fraction]44.9 %See BelowCommunity Hospital [facility] [place] Work Phone: [phone] on above:Reference Range: 36.0 - 46.0 Hemoglobin (Bld) [Mass/Vol]14.9 g/dLSee BelowCommunity Hospital – [facility] [place] Work Phone: Comment on above:Reference Range: 12.0 - 16.0 Lymphocytes (Bld) [#/Vol]2.00 {x10E9/L}See Below-[facility] Work Phone: [phone] on above:Reference Range: 1.20 - 4.80 Lymphocytes/100 WBC (Bld)37.8 %See BelowCommunity [facility] [place] Work Phone: [phone] on above:Reference Range: 13.0 - 44.0MCHC (RBC) [Mass/Vol]33.1 g/dLSee BelowCommunity Hospital – [facility] [place] Work Phone: [phone] on above:Reference Range: 32.0 - 36.0MCV (RBC) [Entitic vol]96 fL80 - 100-[employer] [facility] Work Phone: Monocytes (Bld) [#/Vol]0.30 {x10E9/L}See Below- [employer] [facility] Work Phone: [phone] on above:Reference Range: 0.10 - 1.00 Monocytes/100 WBC (Bld)5.9 %2.0 - 10.0MP-[employer] [facility] Work Phone: [phone] (Bld) [#/Vol]2.80 {x10E9/L}See Below- [employer] [facility] Work Phone: [phone] on above:Reference Range: 1.20 - 7.70 Neutrophils/100 WBC (Bld)53.7 %See Below-[employer] [facility] Work Phone: [phone] on above:Reference Range: 40.0 - 80.0Platelets (Bld) [#/Vol]252 {x10E9/L}150 - 450MP-Unbabel [facility] Work Phone: [phone] (Bld) [#/Vol]4.69 {x10E12/L}See Below-Unbabel [facility] Work Phone: [phone] on above:Reference Range: 4.00 - 5.20WBC (Bld) [#/Vol]5.3 {x10E9/L}4.4 - 11.3MP-[facility] Work Phone: Lipase, Serumon 53-90-4778Byiauc [Catalytic activity/Vol]15 U/L9 - 82MP-[facility] Work Phone: [phone] on above:Venipuncture immediately after or during the administration of Metamizole may lead to falsely low results. Testing should be performed immediately prior to Metamizole dosing.Metabolic Panelon 92-27-7324VFC [Catalytic activity/Vol]75 U/L33 - 110MP-[facility] Work Phone: Anion gap [Moles/Vol]10 mmol/L10 - 20MP-[facility] Work Phone: Bilirubin [Mass/Vol]0.6 mg/dL0.0 - 1.2MP-[facility] Work Phone: Calcium [Mass/Vol]9.8 mg/dL8.6 - 10.3MP-[facility] Work Phone: Chloride [Moles/Vol]106 mmol/L98 - 107MP-Medical [facility] Work Phone: XZ9 [Moles/Vol]30 mmol/L21 - 32MP-[facility] Work Phone: Creatinine [Mass/Vol]0.61 mg/dLSee BelowMP-[facility] Work Phone: comment on above:Reference Range: 0.50 - 1.05Glucose [Mass/Vol]80 mg/dL74 - 99MP-[facility] Work Phone: Potassium [Moles/Vol]4.1 mmol/L3.5 - 5.3MP-[facility] Work Phone: Protein [Mass/Vol]7.2 g/dL6.4 - 8.2MP-[facility] Work Phone: Sodium [Moles/Vol]142 mmol/L136 - 145MP-Medical [facility] Work Phone: Urea nitrogen [Mass/Vol]13 mg/dL6 - 23MP-[facility] Work Phone: Otheron 88-99-4258Kmphoqj BCP dye [Mass/Vol]4.6 g/dL 3.4 - 5.0MP-[facility] Work Phone: GLT With P-5'-P [Catalytic activity/Vol]13 U/L7 - 45 MP-Unbabel [facility] Work Phone: comment on above:Patients treated with Sulfasalazine may generate falsely decreased results for ALT.AST With P-5'-P [Catalytic activity/Vol]17 U/L9 - 39MP-[facility] Work Phone: >60>60MP-[facility] Work Phone: comment on above:CALCULATIONS OF ESTIMATED GFR ARE PERFORMED USING THE MDRD STUDY EQUATION FOR THE IDMS-TRACEABLE CREATININE METHODS. CLIN CHEM 2007;53:766-72IGP W/hpv Rfx 759141fj 19-86-4801Xfqfwqlfv:See Ref Lab ReportNoChambers Medical CenterComment on above:Order Comment: Thin Prep. HysterectomyPerformed By: #### [id number] #### LAVELLE [employer] [address] [place] [address] 09324MQ Mamm Screen w/CAD if performed bilaton 51-48-3002ET Mamm Screen w/CAD if performed bilatExam Date/Time: 01/01/2019 14:52 EDT Reason for Exam: SCREENING;Screening Report STUDY: Digital mammography screening; 01/01/2019 2:52 pm ACCESSION NUMBER(S): [id number] ORDERING CLINICIAN: Chance Barnes INDICATION: Screening. COMPARISON: [...] Assessment: BI-RADS Category 1-Negative Recommendation: Normal interval follow-upNoChambers Medical Center Orange Cytologyon 50-54-0599Bfsdjt CytologyAccession #: [id number] Date of Procedure: 12/25/2018 Pathologist: SY GIRON [...] A: THINPREP PAP Vaginal Reflex - Ascus onlyWarren General HospitalMRI Brain w/ + w/o Contraston 03-87-5579DZR Brain w/ + w/o ContrastExam Date/Time: 11/19/2018 14:18 EDT Reason for Exam: DEMYELINATING DISEASE Report STUDY: MRI Brain w/ + w/o Contrast; 11/19/2018 2:18 pm INDICATION: DEMYELINATING DISEASE. COMPARISON: None. ACCESSION NUMBER(S): [id number] ORDERING CLINICIAN: Ba Callahan TECHNIQUE: Axial T2, [...] pm Signed by: Freya Sarmiento DO Technologist: Chambers Medical CenterMRI Spine Cervical w/ + w/o Contraston 68-84-5470YJL Spine Cervical w/ + w/o ContrastExam Date/Time: 11/19/2018 14:17 EDT Reason for Exam: DEMYELINATING DISEASE Report STUDY: MRI Spine Cervical w/ + w/o Contrast; 11/19/2018 2:17 pm INDICATION: DEMYELINATING DISEASE. COMPARISON: None. ACCESSION NUMBER(S): [id number] ORDERING CLINICIAN: Ba Callahan TECHNIQUE: Sagittal T1, [...] pm Signed by: Freya Sarmiento DO Technologist: [facility] Medical CenterLab Miscellaneouson 09-28-3901VcxhktDqj Ref Lab ReportNoChambers Medical CenterComment on above:Performed By: #### [id number] #### [facility]LE [employer] [address] [place], [place] [address]BoawncOij Ref Lab ReportChristus Dubuis Hospital Comment on above:Performed By: #### [id number] #### L[facility]ELLE [employer] [address] [place], [place] [address]K Prot Electroon 76-14-1754H-Feng PercentNot ObservedNormalNot [facility] CenterComment on above:Performed By: #### [id number] #### LAVELLE [employer] [address] [place], [place] [address]Gmhmfoz mass concCommentChristus Dubuis Hospital Comment on above:Result Comment: Protein electrophoresis scan will follow via computer, mail, or customer operations manager delivery. Performed At: [facility] [address] [place] [id number] Kasandra Quinn PhD Ph:[phone] By: #### [id number] #### [facility] [employer] [address] [place], [place] [address]Hjiktxd mass conc14.5 mg/dLNormalNot Estab.[facility] CenterComment on above:Performed By: #### [id number] #### LAVELLE [employer] [address] [place], [place] [address]Z Purlvdj92.4 %[facility] Dubuis HospitalComment on above:Performed By: #### [id number] #### LAVELLE [employer] [address] [place], [place] [address]P Alpha 1 Glob3.3 %[facility] Comment on above:Performed By: #### [id number] #### LAVELLE [employer] [address] [place], [place] [address]S Alpha 2 Glob21.3 %[facility] Comment on above:Performed By: #### [id number] #### LAVELLE [employer] [address] [place], [place] [address]Q Beta Glob34.7 %[facility] Dubuis HospitalComment on above:Performed By: #### [id number] #### LAVELLE [employer] [address] [place] [address] 07987T Gamma Glob16.2 %[facility] Dubuis HospitalComment on above:Performed By: #### [id number] #### LAVELLE [employer] [address] [place] [address]Pxq Miscellaneouson 02-43-9660RqmdilKel Ref Lab ReportNoWadley Regional Medical CenterComment on above:Performed By: #### [id number] #### LAVELLE [employer] [address] [place] [address]Odiu Nameurine heavy metNoalSWashington Regional Medical Center Comment on above:Performed By: #### [id number] #### L[facility]ELLE [employer] [address] [place] [address]VERrd 14-42-5868Fyuoiqg mass conc4.0 g/dLNormal2.9-4.4SWashington Regional Medical CenterComment on above:Performed By: #### [id number] #### LAVELLE [employer] [address] [place], [place] [address]Bsmhjwp/Globulin mass ratio1.4 {ratio}Normal0.7-1.7[facility] Medical CenterComment on above:Performed By: #### [id number] #### L[facility]ELLE [employer] [address] [place], [place] [address]Lyipz 1 Glob0.2 gm/dLNormal0.0-0.4SFormerly [facility] SystemComment on above:Performed By: #### [id number] #### LAVELLE [employer] [facility] [place], [place] [address]Pbito 2 Glob0.7 gm/dLNormal0.4-1.0[facility] SystemComment on above:Performed By: #### [id number] #### L[facility]ELLE [employer] [address] [place] [address] 72[address]Qewj Glob1.0 gm/dLNormal0.7-1.3SWashington Regional Medical Center Comment on above:Performed By: #### [id number] #### [facility]LE [employer] [address] [place] [address] 69[address]Dajij Glob0.9 gm/dLNormal0.4-1.8[facility] Medical CenterComment on above:Performed By: #### [id number] #### [facility] [employer] [address] [place] [address] 347[address]Kjfxuaiq mass conc (S)2.8 g/dLNormal2.2-3.9[facility] Medical CenterComment on above:Performed By: #### [id number] #### [facility] [employer] [address] [place] [address] 12543F-YvckaLqk ObservedNormalNot ObservedDallas County Medical CenterComment on above:Performed By: #### [id number] #### LAVELLECaroline Lozano[address] [address]Ttqeobs mass concCommentNormalSWashington Regional Medical Center Comment on above:Result Comment: The SPE pattern appears essentially unremarkable. Evidence of monoclonal protein is not apparent. Performed At: LabCoSt. [facility] [address] [place], [place] [id number] Kasandra Quinn PhD Ph:[phone] By: #### [id number] #### [facility]LE [employer] [facility] [place], [place] [address]Auyaxqi mass conc6.8 g/dLNormal6.0-8.5SFormerly [facility] SystemComment on above:Performed By: #### [id number] #### LAVELLE LozanoChem [address] [place], [place] [address]Ddpwbee mass concCommentNoChambers Medical Center Comment on above:Result Comment: Protein electrophoresis scan will follow via computer, mail, or customer operations manager delivery. Performed At: Lab[address] [id number] Kasandra Quinn PhD Ph:[phone] By: #### [id number] #### LAVELLE [employer] [facility] [place], [place] [address]ESSvd 92-07-8824IPJ mass conc0.13 mg/dLNormal0.00-1.00[facility] Medical CenterComment on above:Performed By: #### [id number] #### LAVELLE LozanoChem [facility] [place], [place] [address]Scacypws 32-50-3035Vqtwtd Lvl19.70 ng/mLNormal>=5.00[facility] Medical CenterComment on above:Result Comment: The WHO Technical Consultation on folate and vitamin B12 deficiencies has determined that deficient folate concentrations are considered to be less than 4ng/ml.Performed By: #### [id number] #### LAVELLE [employer] [address] [place] [address]LodY4boq 63-51-3573Psxjzaalsm A1c/Hemoglobin.total mass fraction (Bld)5.2 %Normal4.0-6.3SWashington Regional Medical CenterComment on above:Performed By: #### [id number] #### LAVELLE [employer] [facility] [place], [place] [address]Nau Miscellaneouson 43-77-3550Rood NameparaneoplasticNoWadley Regional Medical CenterComment on above:Performed By: #### [id number] #### LAVELLE [employer] [address] [place], [place] [address]Exhv Namelyme rfxNoVirginia Mason Hospital SystemComment on above:Performed By: #### [id number] #### L[facility]LE [employer] [address] [place], [place] [address]Tko Rate Automatedon 16-79-3722Mdx Rate Xwaossdqk72 mm/hrNoWadley Regional Medical CenterComment on above:Result Comment: AGE-SPECIFIC REFERENCE RANGES FOR SEDIMENTATION RATE AUTOMATED REFERENCE RANGE - MM/HR AGE MEN WOMEN 0-2 0-2 - PUBERTY 3-13 3-13 PUBERTY - 50 YRS 0-15 0-20 > 50 YRS 0-20 0-30Performed By: #### [id number] #### LAVELLE Jhaveri [address] [place] [address]Wjg B12on 22-44-7094Umtmralzz (Vitamin B12) mass tyad470 pg/mL Mtpq651-654OlvrnardzDallas County Medical CenterComment on above:Performed By: #### [id number] #### LAVELLE Jhaveri [address] [place] [address] 522[address]Pxmivpf D 25 Hydroxyon 49-69-9489Dpuqhav D 25 Ohgsiap12.0 ng/mL Low30.0-100.0[facility] Medical CenterComment on above:Performed By: #### [id number] #### LAVELLE LozanoChem [address] [place] [address]Ybdp Diffon 38-07-3102Qnaemkpgq #/vol (Bld)0.0 E3/mcLNormal 0.0-0.2SFormerly [facility] SystemComment on above:Order Comment: Order Added by Discern Expert.Performed By: #### [id number] #### LAVELLE LozanoHemo [address] [place] [address]Zijwhputu/100 WBC (Bld)1.1 %Normal0.0-2.0[facility] Medical CenterComment on above:Order Comment: Order Added by Discern Expert. Performed By: #### [id number] #### LAVELLE LozanoHemo [address] [place] [address]Blp Absolute0.1 E3/mcLNormal0.0-0.7[facility] Medical CenterComment on above:Order Comment: Order Added by Discern Expert.Performed By: #### [id number] #### LAVELLE LozanoHemo [address] [place] [address]Gzsoiozbhcc/100 WBC (Bld)3.0 %Normal0.0-11.0[facility] Medical CenterComment on above:Order Comment: Order Added by Discern Expert. Performed By: #### [id number] #### LAVELLE RemHemo [address] [place] [address]Cvvskinlueh #/vol (Bld)1.7 E3/mcLNormal1.2-3.4SFormerly [facility] SystemComment on above:Order Comment: Order Added by Discern Expert.Performed By: #### [id number] #### LAVELLE LozanoHemo [address] [place], [place] [address]Yfmjstngzvr/100 WBC (Bld)40.9 %Xctaec00.0-55.0[facility] SystemComment on above:Order Comment: Order Added by Discern Expert.Performed By: #### [id number] #### LAVELLE RemHemo [address] [place], [place] [address]Otgz Absolute0.3 E3/mcLNormal0.0-0.7[facility] SystemComment on above:Order Comment: Order Added by Discern Expert.Performed By: #### [id number] #### LAVELLE LozanoHemo [address] [place] [address]Peievmrgi/100 WBC (Bld)7.7 %Normal0.0-10.0[facility] SystemComment on above:Order Comment: Order Added by Discern Expert. Performed By: #### [id number] #### LAVELLE RemHemo [address] [place] [address] 23[address]Atgmjy Absolute2.0 E3/mcLNormal1.4-6.5SFormerly [facility] SystemComment on above:Order Comment: Order Added by Discern Expert.Performed By: #### [id number] #### LAVELLE LozanoHemo [address] [place] [address]Ezqrav Auto47.3 %Zigvqb94.0-75.0[facility] SystemComment on above:Order Comment: Order Added by Discern Expert.Performed By: #### [id number] #### LAVELLE RemHemo [address] [place] [address]UIX w/ Auto Diffon 41-35-3577Mjlkwrbwwav distribution width Ratio (RBC)13.6 %Xwoxes20.5-14.5SFormerly [facility] SystemComment on above:Performed By: #### [id number] #### LAVELLE RemHemo [address] [place] [address]Iclekzaoyd Volume Fraction (Bld)45.2 %Bwzxqb27.0-48.0[facility] Medical CenterComment on above:Performed By: #### [id number] #### LAVELLE LozanoHemo [address] [place], [place] [address]Rlkpojauvc mass conc (Bld)14.7 g/lGRwsffr61.0-16.0[facility] CenterComment on above:Performed By: #### [id number] #### LAVELLECaroline LozanoHemo [facility] Entitic mass (RBC)31.1 bmYims89.0-31.0[facility] Medical CenterComment on above:Performed By: #### [id number] #### LAVELLECaroline LozanoHemo [facility]5 [address]HC mass conc (RBC)32.5 g/dLLow33.0-37.0[facility] CenterComment on above:Performed By: #### [id number] #### LAVELLECaroline LozanoHemo [facility]5 [place], [place] [address]MCV Entitic volume (RBC)95.5 iLZlaaqy45.0-100.0[facility] CenterComment on above:Performed By: #### [id number] #### LAVELLECaroline LozanoHemo [address] [place], [place] [address]Platelet mean volume Entitic volume (Bld)8.7 fLNormal7.4-11.0 [facility] CenterComment on above:Performed By: #### [id number] #### LAVELLECaroline LozanoHemo [address] [place] [address]Zbjvjskxp #/vol (Bld)236 E3/kcDRwolpn061-197RynkpxydkDallas County Medical CenterComment on above:Performed By: #### [id number] #### LAVELLE RemHemo [address] [place], [place] [address]JLD #/vol (Bld)4.73 E6/mcLNormal3.90-5.40SWashington Regional Medical CenterComment on above:Performed By: #### [id number] #### LAVELLE RemHemo [address] [place], [place] [address]BJB #/vol (Bld)4.3 E3/mcLNormal3.6-11.0[facility] SystemComment on above:Performed By: #### [id number] #### LAVELLE RemHemo [address] [place], [place] [address]KFXcq 04-81-2626Xhwrbgr mass conc4.5 g/dLNormal3.4-5.0[facility] CenterComment on above:Performed By: #### [id number] #### LAVELLE [employer] [address] [place] [address] 82034Bgdkfpd/Globulin mass ratio1.8 {ratio}Normal1.1-1.9[facility] Medical CenterComment on above:Performed By: #### [id number] #### LAVELLE [employer] [address] [place] [address] 16296Xuc Phos77 Int._Unit/HTwfbyx99-834BajhhfnszDallas County Medical CenterComment on above:Performed By: #### [id number] #### LAVELLE [employer] [address] [place] [address] 54875FWI enzyme act/vol14 Int._Unit/LNormal7-45[facility] SystemComment on above:Performed By: #### [id number] #### [facility] [employer] [address] [place] [address] 880[address]Oibfd gap molar conc9 mmol/KFvw38-79JyjykgmipFormerly [facility] SystemComment on above:Performed By: #### [id number] #### LAVELLE [employer] [address] [place] [address] 85955VAZ enzyme act/vol19 Int._Unit/LNormal9-39[facility] SystemComment on above:Performed By: #### [id number] #### LAVELLE [employer] [address] [place] [address] 97[address]Aabr Total0.49 mg/dLNormal0.00-1.20SFormerly [facility] SystemComment on above:Performed By: #### [id number] #### LAVELLE [employer] [address] [place] [address] 311[address]Jmmruns mass conc9.8 mg/dLNormal8.6-10.3SFormerly [facility] SystemComment on above:Performed By: #### [id number] #### LAVELLE [employer] [address] [place] [address] 16368Vaqjcexm molar kztp340 mmol/YWdcbsn07-060AlqllhomrSwedish Medical Center Cherry [facility] SystemComment on above:Performed By: #### [id number] #### LAVELLE [employer] [address] [place] [address] 25876EH5 molar conc30.0 mmol/IVrjlry75.0-32.0[facility] SystemComment on above:Performed By: #### [id number] #### LAVELLE [employer] [address] [place] [address] 00374Vhuxtkvoel mass conc0.6 mg/dLNormal0.5-1.1SWashington Regional Medical CenterComment on above:Performed By: #### [id number] #### LAVELLE [employer] [address] [place] [address] 313[address]Mtulfjrv mass conc (S)3.0 g/dLNormal2.0-4.0[facility] CenterComment on above:Performed By: #### [id number] #### LAVELLE [employer] [address] [place] [address] 45629Sxcokar mass conc86 mg/yTXwuipd39-95UxxikchchDallas County Medical CenterComment on above:Performed By: #### [id number] #### LAVELLE [employer] [address] [place] [address] 898[address]Mcmkzbbwp molar conc4.2 mmol/LNormal3.5-5.3SFormerly [facility] SystemComment on above:Performed By: #### [id number] #### LAVELLE [employer] [address] [place] [address] 22572Cqijqfj mass conc7.0 g/dLNormal6.4-8.2SFormerly [facility] SystemComment on above:Performed By: #### [id number] #### LAVELLE [employer] [address] [place] [address] 36473Meagpy molar owqn970 mmol/CVyrlzs400-935DlaridtsqSwedish Medical Center Cherry [facility] SystemComment on above:Performed By: #### [id number] #### LAVELLE [employer] [address] [place] [address] 31257Zeyj nitrogen mass conc13 mg/dLNormal6-23[facility] SystemComment on above:Performed By: #### [id number] #### LAVELLE [employer] [address] [place] [address] 76148Fyqk nitrogen/Creatinine mass ratio21.7 ratioNormal5.4-30.0 [facility] CenterComment on above:Performed By: #### [id number] #### LAVELLE [employer] [address] [place] [address] 25696MEWnw 91-46-8450Zvkmgnxtruw Qn0.02 mcIU/mLLow0.30-5.60[facility] CenterComment on above:Performed By: #### [id number] #### LAVELLE [employer] [address] [place] [address] 97838tSIYav 99-52-5061FPX/1.73 sq M predicted among non-blacks MDRD vol rate/area (S/P/Bld)mL/min/{1.73_m2}[facility] Comment on above:Order Comment: Order added by Discern Expert.Performed By: #### [id number] #### LAVELLE [employer] [address] [place] [address] 709[address]Twz B12on 70-39-3865Xctvviogx (Vitamin B12) mass boss824 pg/mL Gpzgnd957-193HufacsuiiDallas County Medical CenterComment on above:Performed By: #### [id number] #### LAVELLE [employer] [address] [place] [address] 89410YCWtd 79-14-9807Lajliykcuzd Qn0.06 mIU/mLow0.30-5.60[facility] CenterComment on above:Performed By: #### [id number] #### LAVELLE [employer] [address] [place] [address] 60870Thd B12on 84-88-1596Vpldboifp (Vitamin B12) mass ylcb180 pg/mL Hkjddf612-276RvdrzpruwDallas County Medical CenterComment on above:Performed By: #### [id number] #### LAVELLE [employer] [address] [place] [address] 55415M Urineon 02-07-2018C UrineFinal Report: Light growth of Mixed skin contaminants in Moderate Normal skin michael isolatedNoChambers Medical CenterComment on above:Performed By: #### [id number] #### LAVELLE Microbiology Subsection [address] [place] [address] 655[address]Dmvchbuxt ([facility])on 90-32-9241Gsnskmode ([facility])FINAL GYNECOLOGIC CYTOLOGY BPAFNHVH-52-9155KQQWAKBB ADEQUACYUnsatisfactory for Evaluation. Specimenis processed and examined, butunsatisfactory for evaluation of epithelial abnormality due to:Scant cellularity.GENERAL CATEGORIZATIONUnsatisfactory for evaluation.COMMENTHigh Risk HPV was ordered and performed at [facility] Laboratory. Results arereported below in this report. A negative result is a normal result. Apositive result is an abnormal result.HPV HIGH RISK NEGATIVE: The results of this test indicate the patient'sspecimen is NEGATIVE for the following high-risk HPV types:16/18/31/33/35/39/45 /51/52/56/58/59/66/68. RELATED LABORATORY RESULTSOrdered by: Anders Date: 03/16/2017 Ord Time: 20:44Test Collected Result Abnormal Range Units SpecimenName D&T TypeHPV Negative NA MSCRNA, 7HighRiskThe HPV test detects E6/E7 viral messenger RNA (mRNA) high-risk HPV gdzrzasww13,18,31,3 3,35,39,45,51,55,58,59,66, and 68 which are associated with cervicalcancer and its precursor lesions. However, cross-reactions with othergenotypes may occur. Results should be correlated with cytologic andhistologic findings. Sensitivity may be affected by cellularity of specimen.CLINICAL HISTORYComment: LMP: No UterusHysterectomySPECIMEN(A) SCREENING VAGINAL LIQUID-BASED PAP SMEARPerformed at [facility], [address] [place], [place] [address]Screened by: Signed Out by: DAVON CASTILLO [employer] Reported: 03/20/2017NoUP Health SystemComment on above:Performed By: #### APPROVER ####[address] [place] [address] Vital Signs Date TimeVital SignValuePerforming AonecwgbvHttnztlq20-17-6703 13:38-0400Body rtoiqt902.45 cmXiomara Aaron MD Work Phone: [facility]10-29-2025 13:38-0400 Body mass index (BMI) [Ratio]22.4 kg/a7UdwpbpXiomara Aaron MD Work Phone: [phone]10-29-2025 13:38-0400 Body njfasw56.77 kgXiomara Aaron MD Work Phone: [phone]10-29-2025 13:38-0400 Diastolic blood xctmtiff53 mm[Hg]Xiomara Aaron MD Work Phone: [phone]10-29-2025 13:38-0400 Heart rate78 /Charito Aaron MD Work Phone: [phone]10-29-2025 13:38-0400 Systolic blood vpevmoku276 mm[Hg]Xiomara Aaron MD Work Phone: [phone]09-03-2025 10:10-0400 Body flmakz651.45 cmXiomara Aaron MD Work Phone: [phone]09-03-2025 10:10-0400 Body mass index (BMI) [Ratio]22.4 kg/d4CxdawnXiomara Aaron MD Work Phone: [phone]09-03-2025 10:10-0400 Body amoate38.77 kgXiomara Aaron MD Work Phone: [phone] [place], [place] [address]707302-28-2025 08:58-0500 Body .45 cmKim Burnette [facility]02-28-2025 08:58-0500Body mass index (BMI) [Ratio]23.4 kg/w5YfbsicKim Burnette [facility]02-28-2025 08:58-0500Body dkulal47.94 kgKim Burnette MD [facility]02-28-2025 08:58-0500Diastolic blood hpeonlys90 mm[Hg]Kim Burnette [facility]02-28-2025 08:58-0500 Heart rate80 /minKim Burnette [facility]02-28-2025 08:58-0500Systolic blood ckpyeqqs00 mm[Hg]Kim Burnette MDKindred Healthcare02-14-2025 20:10-0500Body ijzlcw406.2 cmAsher MD Work Phone: [facility]02-14-2025 20:10-0500Body mass index (BMI) [Ratio]22.71 kg/m2Asher MD Work Phone: [facility]02-14-2025 20:10-0500Body ufkztdyhnbo74.2 [degF]Asher MD Work Phone: [facility]02-14-2025 20:10-0500Body adabhr33.77 kgAsher MD Work Phone: [facility]02-14-2025 20:10-0500Diastolic blood ezervgds18 mm[Hg]Asher MD Work Phone: [facility]02-14-2025 20:10-0500Heart rate90 /Scott Donato MD Work Phone: [facility]02-14-2025 20:10-0500 Respiratory rate20 /Scott Donato MD Work Phone: [facility]02-14-2025 20:10-7984DxS6% (BldA) [Mass fraction]99 %Asher MD Work Phone: [facility]02-14-2025 20:10-0500Systolic blood tspagysj734 mm[Hg]Asher MD Work Phone: [facility]01-03-2025 08:48-0500Body mtfaze506.5 cmKim Burnette MD Work Phone: [facility] CenterOowqxjjrly81-12-8462 08:48-0500Body mass index (BMI) [Ratio]23.15 kg/a2PyuydbKim Burnette MD Work Phone: [facility] CenterQedazmtwno34-35-6412 08:48-0500Body xifcdu15.04 kgHigypsy Burnette MD Work Phone: 1(266)[address] [place], [place] 5051901-03-2025 08:48-0500Diastolic blood wsivspoc49 mm[Hg]Kim Burnette MD Work Phone: 1(344)[address] [place], [place] 5051901-03-2025 08:48-0500Systolic blood rbdftyhh216 mm[Hg]Kim Burnette MD Work Phone: 1(040)[address] [place], [place] 5051911-27-2024 09:38-0500Body puyqfn449.5 cmKim Burnette MD Work Phone: 1(168)[address] [place], [place] 5051911-27-2024 09:38-0500Body mass index (BMI) [Ratio]23.15 kg/t7PtapxbKim Burnette MD Work Phone: 1(572)[address] [place], [place] 5051911-27-2024 09:38-0500Body fmafnz48.04 kgKim Burnette MD Work Phone: 1(282)[facility] [place], [place] [address]Zcssyapopd91-92-8286 09:38-0500Diastolic blood vouidzhq41 mm[Hg]Kim Burnette MD Work Phone: 1(223)[address] [place], [place] 5051911-27-2024 09:38-0500Systolic blood atiuctlx525 mm[Hg]Kim Burnette MD Work Phone: 1(439)[address] [place], [place] 5051910-30-2024 10:41-0400Body klbiew182.5 cmKim Burnette MD Work Phone: [phone] [place], [place] 5051910-30-2024 10:41-0400Body mass index (BMI) [Ratio]22.38 kg/l0JxpdreKim Burnette MD Work Phone: 1([phone])[address] [place], [place] 5051910-30-2024 10:41-0400Body rxlymm39.77 kgKim Burnette MD Work Phone: 1(134)[address] [place], [place] 5051910-30-2024 10:41-0400Diastolic blood nvzoctqx99 mm[Hg]Kim Burnette MD Work Phone: 1(070)[address] [place], [place] 5051910-30-2024 10:41-0400Systolic blood izxpeymg570 mm[Hg]Kim Burnette MD Work Phone: [facility] CenterJpkxzgwlmo26-05-7959 08:08-0400Body uqwlhd014.45 cm[facility]10-03-2024 08:08-0400Body mass index (BMI) [Ratio]22.1 kg/l4WzribmqvdKindred Healthcare10-03-2024 08:08-0400Body .03 kgKind[facility]10-03-2024 08:08-0400Diastolic blood yvbpdwrg32 mm[Hg][facility]10-03-2024 08:08-0400 Heart rate71 /[facility]10-03-2024 08:08-0400 Respiratory rate16 /[facility]10-03-2024 08:08-0400 SaO2% (BldA) [Mass fraction]96 %[facility]10-03-2024 08:08-0400Systolic blood mxghosrr907 mm[Hg][facility] 05-09-2024 10:27-0400Blood Pressure LocationJENNJESSE ALEX [facility]09-19-2024 10:27-0400Diastolic blood dyqovygk35 mm[Hg]FREYA JOHNSON [facility]09-19-2024 10:27-0400Heart rate74 /[facility]09-19-2024 10:27-0400Systolic blood noxosxrd579 mm[Hg]FREYA BENTLEYRY [facility]08-21-2024 09:17-0400Body .45 cm[facility]08-21-2024 09:17-0400Body mass index (BMI) [Ratio]23.6 kg/q7ZhtbszuybKindred Healthcare08-21-2024 09:17-0400Body ynfufw79.39 kgKindred [facility]08-21-2024 09:17-0400Diastolic blood whcofqvh59 mm[Hg] [facility]08-21-2024 09:17-0400Heart rate73 /minKindred Healthcare08-21-2024 09:17-0400Systolic blood shwdyret969 mm[Hg] [facility]12-04-2023 14:45-0500Body jrfjyq521.45 cm Freya Ponce Other [employer] Other 12-04-2023 14:45-0500Body mass index (BMI) [Ratio] 22.53 kg/o3RewhrpslFreya Ponce Other [employer] Other 12-04-2023 14:45-0500Body pqakml08.23 kgFreya Ponce Other [employer] Other 12-04-2023 14:45-0500Diastolic blood wzvvvtsu95 mm[Hg] Freya Ponce Other [employer] Other 12-04-2023 14:45-0440YkF4% (BldA) [Mass fraction]98 % Freya Ponce Other [employer] Other 12-04-2023 14:45-0500Systolic blood mm[Hg] Freya Ponce Other [employer] Other 11-10-2023 09:00-0500Body fxodmd196.45 cmFreya Ponce Other [employer] Other 11-10-2023 09:00-0500Body mass index (BMI) [Ratio] 22.68 kg/o9UkbqnztrFreya Ponce Other [employer] Other 11-10-2023 09:00-0500Body .68 kgFreya Ponce Other [employer] Other 11-10-2023 09:00-0500Diastolic blood wjstcrpa44 mm[Hg] Freya Kris Other [employer] Other 11-10-2023 09:00-8731AuQ5% (BldA) [Mass fraction]97 % Freya Petersbetty Other [employer] Other 11-10-2023 09:00-0500Systolic blood mvhtvfis261 mm[Hg] Freya Kris Other [employer] Other 09-20-2023 13:00-0400Body jmqylb462.45 cmImad Asaad Other [employer] Other 09-20-2023 13:00-0400Body mass index (BMI) [Ratio] 23.07 kg/m2Imad Asaad Other [employer] Other 09-20-2023 13:00-0400Body rzpiup19.81 kgImad Asaad Other [employer] Other 09-20-2023 13:00-0400Diastolic blood fdcbdeuq77 mm[Hg] Imad Asaad Other [employer] Other 09-20-2023 13:00-0400Systolic blood syiuhpsc800 mm[Hg] Imad Josephad Other [place] [employer] Other 09-06-2023 13:34-0400Blood Pressure LocationJENNIFER ALEX [facility]09-06-2023 13:34-0400Diastolic blood zhbieohp90 mm[Hg]FREYA ALEX [facility]09-06-2023 13:34-0400Heart rate76 /minJENNIFER ALEX [facility]09-06-2023 13:34-0400Respiratory rate16 /minJENNIFER ALEX [facility]09-06-2023 13:34-0400Systolic blood mm[Hg]FREYA ALEX [facility]01-20-2023 09:30-0500Body otiqpc858.45 cmXiomara Aaron Other [facility] [employer] Other 01-20-2023 09:30-0500Body mass index (BMI) [Ratio] 23.61 kg/a3YazbciXiomara Aaron Other [facility] Care[facility] [employer] Other 01-20-2023 09:30-0500Body emczgz78.4 kgXiomara Aaron Other [employer] Other 01-20-2023 09:30-0500Diastolic blood bydzmqwk13 mm[Hg] Xiomara Aaron Other [facility] [employer] Other 01-20-2023 09:30-5986QeK0% (BldA) [Mass fraction]98 % Xiomara Aaron Other [employer] Other 01-20-2023 09:30-0500Systolic blood zrnorhqa056 mm[Hg] Xiomara Aaron Other [employer] [place] Other 04-20-2022 09:21-0400Blood Pressure LocationJEFILIPPO BENTLEYRY [facility] [employer] 04-20-2022 09:21-0400Diastolic blood drpeshdf24 mm[Hg] FREYA JOHNSON [facility] [employer] 04-20-2022 09:21-0400Heart rate72 /minFREYA BENTLEYRY [facility] [employer] 04-20-2022 09:21-0400Systolic blood kmcrsxup153 mm[Hg] FREYA JOHNSON [facility] [employer] 03-14-2022 11:45-0400Body noodrv726.45 cmDavid Yerbabuena Softwarekes Other [employer] Other 03-14-2022 11:45-0400Body mass index (BMI) [Ratio] 22.53 kg/v3Hdsjd Hykes Other [employer] Other 03-14-2022 11:45-0400Body haaylc75.23 kgDavid Hykes Other [employer] Other 03-14-2022 11:45-0400Diastolic blood exntxeoy01 mm[Hg] Shan Kerr Other [employer] Other 03-14-2022 11:45-0400Systolic blood apaifvqy096 mm[Hg] Shan Kerr Other [employer] Other 02-27-2022 14:05-0500Body espohx628.45 cmAmbsabrina Collier Other [employer] Other 02-27-2022 14:05-0500Body mass index (BMI) [Ratio] 23.45 kg/i0NoioiBlaire Collier Other [employer] Other 02-27-2022 14:05-0500Body fvljgiczbxu53.8 [degF]Blaire Collier Other [employer] Other 02-27-2022 14:05-0500Body .95 kgBlaire Collier Other [employer] Other 02-27-2022 14:05-0500Diastolic blood dkiydgpk11 mm[Hg] Blaire Collier Other [employer] Other 02-27-2022 14:05-0500Respiratory rate18 /minBlaire Collier Other [employer] Other 02-27-2022 14:05-0718YsZ9% (BldA) [Mass fraction]99 % Blaire Collier Other [employer] Other 02-27-2022 14:05-0500Systolic blood ganuqrbw88 mm[Hg] Blaire Collier Other [employer] Other 10-22-2019 12:08-0BMI (Body Mass Index)22.84 kg/m2 [facility] Work Phone: 1([phone]) [phone] 12:08-0400Body ehziki54.13 kgSaba Jenkins [facility] Work Phone: 1(231) 130-990510-22-2019 12:08-0400BP Augyqnlrr16 mm[Hg]Saba SantanaAnthony [facility] Work Phone: 1(155)[phone] 12:08-0400BP Imaydfzm835 mm[Hg]Saba SantanaAnthony [facility] Work Phone: 1(257) 653-483610-22-2019 12:08-0400BSA (Body Surface Area)1.79 m2 Saba [facility]anaAnthony [facility] Work Phone: 1(430) 811-122910-22-2019 12:080882Oihdbs421.45 cmSaba SantanaAscension Stand[facility] Work Phone: [phone] 12:08-0400Pulse (Heart Rate)76 /minSaba SantanaAnthony Medical Center [facility] Work Phone: 1(627) [phone] 12:41-0400BMI (Body Mass Index)22.49 kg/m2 [facility] Work Phone: 1(978) 439-189510-14-2019 12:41-0400Body uimgbq27 kgParussell county hospitalashley [facility] Work Phone: [phone])[phone] 12:41-0400BP Tdeevjzhh12 mm[Hg][facility] Work Phone: comment on above:Location: LU06-03-2019 12:41-0400BP Dtrfpldl723 mm[Hg][facility] Work Phone: comment on above:Location: LU06-03-2019 12:41-0400 BSA (Body Surface Area)1.75 u0UxygkooWeatherford [facility] Work Phone: 1(650) 544-918410-14-2019 12:41-33993946Zzzcdy489 cmPatrick [facility] Work Phone: 1(828) 183-568210-14-2019 12:41-8036Pulse (Heart Rate)77 /minWestlake Regional Hospitalk [facility] Work Phone: Encounters Encounter DateEncounter TypeCare ProviderFacilityStart: 53-19-5286cqcoyyrcxt Jacki TannaFacility:EU BellevueStart: 06-18-2025 End: 47-52-9075jncwnmqztgWorahb E Braun MD Work Phone: [phone]-VhbmkxfvsGolden Valley Memorial HospitalStart: 06-18-2025 End: 40-38-4510Houqswl encounter procedureYoan Robles [facility] Work Phone: Start: 04-23-2025 End: 30-80-8299Guefohv encounter Jena Robles [facility] Work Phone: Start: 04-23-2025 End: 08-49-6161mythtethizPlxfwi E Braun MD Work Phone: [facility] Work Phone: Start: 04-23-2025 End: 18-60-4433ecczdlohidYrpbbn E Braun MD Work Phone: [facility] Work Phone: Start: 04-23-2025 End: 40-19-0470Qxtowgn encounter procedureYoan Robles [facility] Work Phone: Start: 02-12-2025 End: 31-64-5148kiktsmbhocYhbsmg TannaFacility:EU BellevueStart: 02-12-2025 End: 19-43-9738Xvrzfgm encounter procedureJacki Franco [facility] start: 01-15-2025 End: 38-82-2707Abmqsrhvf Result EncounterCorey Randal DO Work Phone: [facility] External Department UnsolicitedStart: 01-15-2025 End: 18-22-7302Hszqeahqv Result EncounterCorey Randal DO Work Phone: n[facility] External Department UnsolicitedStart: 10-18-2024 Patient encounter statusKim [facility]ette [facility]: 10-18-2024 End: 67-29-1053hsobwdgfleEnhmrf Timmis [facility] Work Phone: Start: 10-18-2024 End: 98-40-4584Pkbinwq encounter procedureHigypsy Burnette MDLevine [facility] Physician GroupPremier Health [facility] Work Phone: Start: 48-05-4097Inu-patient / Non-visitHilary Timpurnimas [facility] Affairs [facility] Centerjose Physician GroupPremier Health [facility] Work Phone: Start: 34-51-7176Zkd-patient / Non-visitHilary Timmis [facility] GroupPrem[facility] Work Phone: Start: 10-04-2024 End: 18-22-4485Qmhgktxje department patient visitDe Christiano Donato MD Work Phone: [facility] Emergency DepartmentComment on above: Fall, initial encounter (Primary Dx); Injury of head, initial encounter; Abnormal CT of spineStart: 08-23-2024 End: 94-66-6461Prynki flowsheetKim Burnette MD Work Phone: [facility] E[facility] NOR[place]ALKStart: 08-23-2024 End: 63-03-1109Vrwzft flowsheetKim Burnette MD Work Phone: [facility] NOR[place]ALKStart: 08-23-2024 End: 32-50-3808Umvlipc encounter procedureKim Burnette MD Work Phone: [facility] Hospitalment on above: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)Start: 08-23-2024 End: 33-25-3020xgkvpgplytYGJOOR Frank BURNETTENot AvailableStart: 08-22-2024 End: 50-83-8021Twlllzbif encounterHigypsy Burnette MD Work Phone: [facility] NORWALKStart: 08-15-2024 End: 94-56-1557Iqbyjkbz Result EncounterHicynthiary Frank Burnette MD Work Phone: noms External Department UnsolicitedStart: 08-15-2024 End: 00-69-7451Yrzyracb Result EncounterHigypsy Burnette MD Work Phone: noms External Department UnsolicitedStart: 08-15-2024 End: 61-65-1592hibxmwlwqiMwrxlz Frank Burnette JrFacility:[facility] Hospitaltart: 08-15-2024 End: 36-38-5275Frfficdn ReferredKim Brunette [facility] LAB Path Spec [place] [facility] HospStart: 67-51-4576Uqa-patient / Non-visitHicynthiary Yomaira Overtonboscobeljose [facility] Work Phone: Start: 08-05-2024 End: 34-57-2386Fywugseck Result EncounterHilary Frank Burnette MD Work Phone: noms External Department UnsolicitedStart: 08-05-2024 End: 39-52-7254Cagnctmax Result EncounterHilary Frank Burnette MD Work Phone: noms External Department UnsolicitedStart: 08-05-2024 Non-patient / Non-visitHilary Yomaira Overtonboscobeljose Physician GroupNorth Valley Hospital Professional [facility] Work Phone: Start: 07-17-2024 End: 43-02-8275Dmrchu flowsheetKim Burnette MD Work Phone: noms CI ENTStart: 07-17-2024 End: 64-66-2697Refpci Susanna Burnette MD Work Phone: noms CI ENTStart: 07-17-2024 End: 17-04-6248Canaza outpatient visit 25 minutesKim Burnette MD Work Phone: noms CI ENTComment on above: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)Start: 07-17-2024 End: 19-63-7139rmkcfmriieXCAEWO H YOMAIRANot AvailableStart: 06-22-2024 End: 96-36-6318Kqkcqpsgs Result EncounterHilary Frank Burnette MD Work Phone: noms External Department UnsolicitedStart: 06-22-2024 End: 39-52-7453Twzsjxlcd Result EncounterHicynthiary Frank Burnette MD Work Phone: noms External Department UnsolicitedStart: 06-20-2024 End: 50-48-3998Opepadhcw Result EncounterHilary Frank Burnette MD Work Phone: noms External Department UnsolicitedStart: 06-20-2024 End: 53-28-9195Jwwftnjqm Result EncounterHilary Frank Burnette MD Work Phone: noms External Department UnsolicitedStart: 06-19-2024 End: 64-11-6835Jdiipl flowsheetKim Burnette MD Work Phone: noms CI ENTStart: 06-19-2024 End: 42-42-8179Eotkgh flowsheetHigypsy Burnette MD Work Phone: noms CI ENTStart: 06-19-2024 End: 24-21-5650Jbcpba outpatient new 45 minutesHicynthiary Frank Burnette MD Work Phone: noms CI ENTComment on above:Chronic sinusitis, unspecified location (Primary Dx); Allergic rhinitis, unspecified seasonality, unspecified triggerStart: 06-19-2024 End: 97-26-0022cueapnwnpuPHVCVG Frank BURNETTEJustin AvailableStart: 05-23-2024 End: 61-04-6200xptprbethyXuhcgfdowMemorial Health System [facility] Work Phone: Start: 05-23-2024 End: 47-34-9152Gunyyet encounter procedureLevine Children'S Hospital Physician GroupPrem[facility] Health [facility] Work Phone: Start: 05-09-2024 End: 82-18-6226Awfhtjz encounter procedureJEFILIPPO Elsa JOHNSON [facility] start: 04-10-2024 End: 94-27-6946bnnfelmtyqViuqcgxwvMemorial Health System [facility] Work Phone: Start: 04-10-2024 End: 11-78-2457Kskkrfm encounter procedureLevine Children'S Hospital Physician GroupPremier Health [facility] Work Phone: Start: 2024 End: 69-41-5697kaaqoctflpWDUHJOY S RUSHERNot AvailableStart: 01-16-2024 End: 91-47-5783Slgabbvaw Result EncounterMary ROSSI Work Phone: noms External Department UnsolicitedStart: 01-16-2024 End: 41-46-8083Qqvsbayhq Result EncounterMary ROSSI Work Phone: noms External Department UnsolicitedStart: 01-12-2024 End: 61-51-1355Xvukhrbio Result EncounterMary ROSSI Work Phone: noms External Department UnsolicitedStart: 01-12-2024 End: 36-27-0803Fcsdeqkgc Result EncounterMary ROSSI Work Phone: noms External Department UnsolicitedStart: 12-25-2023 End: 92-00-0947jhtynfbvprKMNKQ F Veterans Health Administrationtart: 11-08-2023 End: 67-62-3766ctvlawoserOAQ RAMEYNot AvailableStart: 08-07-2023 End: 43-98-5516qtvfoudfiyUtaofw Aaron Other [facility] [employer] Other Start: 65-07-8302Vynhdoxjq encounterMarcia BraunFPG St[facility] ClinicStart: 07-24-2023 End: 40-59-8240ahejgtpksjGkgbdvja Rohrbacher Other [facility] [employer] Other Start: 41-02-8627Qhqlyd outpatient visit 15 minutes Freya ContrerasUintah Basin Medical Center ClinicStart: 07-05-2023 End: 65-84-8571luwiofsoqpPbzhhxqe Rohrbacher Other [facility] [employer] Other Start: 62-78-9773Bymonkxtg encounterJennifer FranrbacheHot [facility] ClinicStart: 06-30-2023 End: 93-90-6054hdfzudqmduXebaikyk Rohrbacher Other [employer] Other Start: 39-69-9806Ailzyo outpatient visit 15 minutes Freya TranHot Springs Memorial Hospital [facility]mop[facility] ClinicStart: 05-10-2023 End: 15-66-6417eptuxegcubPzql Asaad Other [facility] [employer] Other Start: 33-70-6494Hscfci outpatient new 45 minutesImad AsaadFPG GastroenterologyStart: 04-26-2023 End: 31-71-4497Ceapqsg encounter procedureJENNIFER E ALEX [facility] start: 03-24-2023 End: 90-74-1976okdqvbdgmjFylo Asaad Other [employer] Other Start: 71-67-9198Houpasjkl encounterImad AsaadFPG GastroenterologyStart: 01-30-2023 End: 00-07-1842uyihwrbcllWytx Asaad Other [employer] Other Start: 51-14-1138Oxvmidlku encounterImad AsaadFPG GastroenterologyStart: 71-13-4739goyowgzjjaYPTV ASAADFacility:Q8Cmpkj: 01-09-2023 End: 01-79-9227zhtyzyvgwvTGBE ASAADFacility:N3Vtnao: 11-01-2022 End: 88-56-8927huslzsqvxmYB TACOS TEE .Facility:H1Xwhgs: 09-09-2022 End: 92-68-7423zsymngkillGalnia Braun Other [employer] Other Start: 38-34-6265Vufsgx outpatient visit 15 minutes Xiomara Bucio [facility] Laredotart: 07-23-2022 End: 43-11-3480hpapvjtcgtLB XIOMARA AARONFacility:T6Giokw: 65-83-4728Kszgjmhxb for cervical smear to confirm findings of recent normal smear following initial abnormal smearImad Asaad Other [employer] Other Start: 28-10-8765Qlrqrudalzffr examination normalImad Asaad Other [employer] Other Start: 33-64-8626Uwcibvi of abnormal cervical Papanicolaou smearImad Asaad Other [employer] Other Start: 12-16-2021 End: 05-53-2438ykpbertbiuGncda Hykes Other [employer] Other Start: 46-52-8262Raltdlnwt encounterDavid HykesFPG GastroenterologyStart: 12-14-2021 End: 78-31-2340fngfdbfduoQxbub Hykes Other nort [employer] Other Start: 37-98-1737Swoabihqe encounterDavid HykesFPG GastroenterologyStart: 12-08-2021 End: 98-07-0021Uehrfgw encounter procedureJENNIFER E ALEX [facility] start: 11-19-2021 End: 89-07-6976zkvjgoxtzdMtvhs Hykes Other [employer] Other Start: 07-05-9503Wpvlvirtn encounterDavid HykesFPG GastroenterologyStart: 11-01-2021 End: 82-47-0213yfydyjrnlvIcttm Hykes Other [employer] Other Start: 03-96-2038Mzddpv outpatient visit 25 minutes Shan Lynne GastroenterologyStart: 10-20-2021 End: 18-43-7093rxecrksjlkJmylg Keller Other [employer] Other Start: 59-44-8573Gifmwtkle encounterAmber KellerFPG [facility] Centertart: 10-17-2021 End: 90-73-9017qugawuzhzyHnbgh Keller Other [employer] Other Start: 30-97-6690Zrfanb outpatient visit 15 minutes Blaire NandoFPG Urgent Care ClydeStart: 45-44-7054Cb Jason Montilla DO Work Phone: [phone]-Rqmhpyi [address] Work Phone: Start: 37-95-7278KNALPFxllc Allman MD Work Phone: [phone]-Fiouxez [address] Work Phone: Start: 23-30-8278Wrvbmmc encounter procedureEvcaroline Monroy [facility] [address] Work Phone: Start: 47-25-1389Xnezncj encounter procedureEvcaroline Monroy [address] Work Phone: Start: 81-32-3616Aglzzqo encounter procedureEva Nelson [address] Work Phone: Start: 44-75-7795Mxsohxs encounter procedureEva Nelson [address] Work Phone: Start: 62-30-0016Weioopc encounter procedureEvcaroline Monroy [address] Work Phone: Start: 21-41-1104Orurybo encounter procedureSaba ApurvaClay County Medical Center Work Phone: start: 54-55-3197Ahvfgut encounter procedureOK [facility] [place] Work Phone: start: 89-31-8290Ufdufgv encounter procedureOK [facility] for [facility] [place] Work Phone: start: 12-99-5638Tcgmxxzpcpdw consultation with [facility] Work Phone: start: 93-31-6324Bodvfxc encounter procedureOK [facility] [place] Work Phone: start: 37-91-1090Ydsvmqu encounter procedureKentfield HospitalMedical [facility] Work Phone: start: 36-73-6755Coslzku encounter procedureOK [facility] [place] Work Phone: start: 12-10-2013 End: 18-10-5193Vitpfrmzu encounterLarry Quinones DO Work Phone: NeurologyComment on above:ResultsCancer cervix - screening Prasanth Barnes MD Work Phone: [phone]-Thkbfjc [address] Work Phone: comment on above:05/19/2020; ASCUS, HPV POSITIVE12/25/2018; UNSATISFACTORY; Procedures DateProcedureProcedure DetailPerforming ClinicianStart: 49-56-3366Qdgedg abdominal X-rayXiomara Aaron MD Work Phone: Start: 69-42-7233ES TOMOSYNTHESIS SCREENING BICorey Randal DO Work Phone: Start: 10-41-8805TimnxuagkkjVewvm Randal DO Work Phone: Start: 12-35-1500If cervical spine w/o contrast materialRuiz MD Work Phone: Start: 89-47-2760Td head/brain w/o contrast materialRuiz MD Work Phone: Start: 36-20-6318Rmmiugyfhq exam chest 2 viewsRuiz MD Work Phone: Start: 58-83-1632NFXEUCMPL REQUEST FOR LAB CORPHigypsy Burnette MD Work Phone: Start: 98-32-9288NSO 12-LEADHigypsy Burnette MD Work Phone: Start: 92-73-0853RXL CBC WITH AUTO DIFFKim Burnette MD Work Phone: Start: 03-08-5797Ikszh sinuses paranasal compl minimum 3 viewsKim Burnette MD Work Phone: Start: 43-29-4755BOJBDIGHG W/COMP RFLX AREA 5Hilary Frank Burnette MD Work Phone: Start: 59-22-1243GQ TOMOSYNTHESIS SCREENING Clair ROSSI Work Phone: Start: 00-83-7713PsumaljajpiMivfmt Timmis MD Work Phone: Start: 74-51-2315CE DEXA AXIAL SKELETONAmy Vikash FLO Work Phone: Start: 07-45-5383Ytgqbcxmzxu observation [Identifier] in Cervix by Cyto stainKim Burnette MD Work Phone: Start: 70-20-0475Ohyfrsiky for malignant neoplasm of breastImad Asaad Other Start: 09-29-0863TjnybrwialbLoyzyh Timmis MD Work Phone: Start: 15-18-5305Iqciy of lipasePatrick FurnessStart: 76-56-2585Sswpa count complete auto&auto difrntl wbcPatrick FurnessStart: 18-12-8279Iejiuaapywfse metabolic 2000 panelPatrick FurnessStart: 16-81-0979WD Abdomen and Pelvis with ContrastPatrick FurnessStart: 06-03-2019 Giardia/CryptosporidiumPatrick FurnessStart: 36-60-9067Jorbn-dna/rna gi pthgn multiplex probe tq 6-11Patrick FurnessStart: 26-34-3309Vhg agent det nucleic acid clostridium amp probePatrick FurnessBilateral salpingectomy with oophorectomyPatrick FurnessDilation and curettagePatrick FurnessDilation and curettage of uterusJENNIFER ALEX H/O: hysterectomyJENNIFER ALEX History of tonsillectomyJENNIFER ALEX HysterectomyPatrick FurnessOperative procedure on ankle Yan FurnessProcedure on footJENNIFER ALEX TonsillectomyPatrick Furness Plan of Treatment DateCare ActivityDetailAuthorStart: 23-15-2422Zlzftxuoy for malignant neoplasm of colonNOMS HealthcareStart: 75-30-4642Awkgkknak for malignant neoplasm of cervixNOMS HealthcareStart: 38-70-3715Hspmrnnji for malignant neoplasm of breast MammogramNOMS HealthcareStart: 09-25-2024 End: 69-76-0106Wzmopyz encounter qpzmyyfif57/05/2025 9:10 AM EST Office Visit [facility] [address] [place] [address] Kim Burnette MD [address] [place] [address] [facility] ENTStart: 08-23-2024 End: 16-83-6791Fzbeygs encounter procedureNOMS ENT NORWALKComment on above: ArrivedStart: 07-17-2024 End: 85-00-9789Ylheuyl encounter nqsoapyep09/27/2024 9:40 AM EST Office Visit [facility] [address] [place] [address] Kim Burnette MD [address] [address] [place] [address] ArrivedNOMS CI ENTComment on above:ArrivedStart: 06-19-2024 End: 62-41-4366Ecxdakf encounter /30/2024 10:30 AM EDT Office Visit [facility] [address] [place] [address] Kim Burnette MD [address] [place] [address] ArrivedNOMS CI ENTComment on above:ArrivedStart: 35-32-8697Cwzjegt [facility] Work Phone: Start: 52-72-7511ZFEGR-19 Vaccine ( season) COVID-19 Vaccine ( season)[facility]: 04-[facility]2024 Influenza vaccinationInfluenza Vaccine (#1)[facility] HealthcareStart: 03-21-2024 Influenza vaccinationFlu vaccine (#1)[facility] HospitalStart: 12-21-2021 Patient encounter procedureANNUAL, Provider: Fely Monroy, Status: Pen, Time: 9:[address] Work Phone: Start: 89-18-8517Uofvjtjb vaccine (2 of 2)Shingles vaccine (2 of 2)[facility]: 11-69-3083Ujidllvdi vaccination INFLUENZA (Season Ended)[facility]: 13-40-5874Qdvumnqxq for malignant neoplasm of colonFort Hamilton Hospitaltart: 15-93-6875AFUNVALN VACCINE (1 of 2) SHINGRIX VACCINE (1 of 2)[facility]: 91-89-5917HJwD/Tdap/Td vaccine (7 - Td or Tdap)DTaP/Tdap/Td vaccine (7 - Td or Tdap)[facility] Start: 32-75-1275WZUJOVBQ SCREENDIABETES SCREENFort Hamilton Hospitaltart: 2014 LIPID SCREENLIPID SCREENFort [facility] Hospitaltart: 53-71-1552Cmwkinnwc for malignant neoplasm of colonBon [facility] HospitalStart: 14-02-9108Mqhlf panelLipidsPage Memorial HospitalStart: 62-73-3694NvwxfizgyocCGZPNWILDSvrwtxxng ClinicStart: 66-39-0537Ylmxbkbzh for malignant neoplasm of breastBreast cancer screenPage Memorial HospitalStart: 41-50-7021WEM TESTINGHPV TESTINGFayette County Memorial Hospital Start: 36-37-3178Lpswzfdbj for malignant neoplasm of cervixNOMS HealthcareStart: 45-40-4614FFQ TESTINGPAP TESTINGFort [facility] Hospitaltart: 64-01-4030Aofrgwetk for malignant neoplasm of cervixPap smearPage Memorial HospitalStart: 1988 Hepatitis B vaccine (1 of 3 - 19+ 3-dose series)Hepatitis B vaccine (1 of 3 - 19+ 3-dose series)[facility] HospitalStart: 62-76-7433Ctasi microalbumin profileDTAP,TDAP,TD (1 - Tdap)[facility]: 90-43-6315DTUBNNHMH C SCREENINGHEPATITIS C SCREENINGFort [facility] Hospitaltart: 41-38-0153Mdvymugfm C screeningHepatitis C screenPage Memorial HospitalStart: 51-85-3638SIX SCREENINGHIV SCREENINGFort [facility] Hospitaltart: 37-04-6108ZRL screeningHIV screen [facility] HospitalStart: 86-92-0745Astgn depression screening assessment DEPRESSION SCREENINGFort [facility] Hospitaltart: 25-33-4065Epiglwblus ScreenDepression ScreenBon Secours [facility]: 75-10-2959Ahdhbwmuk for malignant neoplasm of colonNOMS HealthcarePatient referralSouthwest General Health Center Work Phone: Supine abdominal X-rayKind[facility] End: 68-52-6565XZ Shoulder - left 2 ViewsPage Memorial HospitalComment on above:Once for 1 Occurrences starting 10/04/2024 until 10/04/2024[facility] Immunizations Immunization DateImmunizationNotesCare TijbkoqdYcwklilz28-62-2405eamknnvjx virus vaccine, unspecified formulationKim Burnette MD Work Phone: [facility] CenterPvvfuglhil36-95-8700Vozffytge, injectable, Madin Lisbeth Canine Kidney, preservative free, quadrivalentKim Burnette MD Work Phone: [facility] CenterWngusjkzfr61-05-1615rulyqiaui virus vaccine, unspecified formulationKim Burnette MD Work Phone: [facility] CenterOzgwlyybzm31-62-1104dhlvpixtp virus vaccine, split virus (incl. purified surface antigen)Imad Asaad Other [place] Other [id number] virus vaccine, unspecified formulationKindred Healthcare10-10-2022Influenza, injectable, Madin [place] Canine Kidney, preservative free, quadrivalentKim Burnette MD Work Phone: [facility] CenterSxefqwiuet17-94-4381Fvoqmcm 20Imad Asaad Other [facility]07-12-2021zoster vaccine recombinantKim Burnette MD Work Phone: [facility] CenterCrkzaamuyh96-36-8582VVJK-QcX-8 (COVID-19) mRNA BNT-162b2 vaxJENNJESSE JOHNSON [facility] [id number]-RzP-8 (COVID-19) mRNA BNT-162b2 yaneli JOHNSON [facility] [id number] B vaccine, pediatric or pediatric/adolescent dosageKim Burnette MD Work Phone: [facility] CenterItlfhyorhj91-78-7748qbiqkrbpo B vaccine, pediatric or pediatric/adolescent dosageKim Burnette MD Work Phone: [facility] CenterMvjumrnnfc67-56-1283nzjlqlwqc B vaccine, pediatric or pediatric/adolescent dosageKim Burnette MD Work Phone: [place] [address]Tqlswkzwxb89-59-5364hjwwxmp, mumps and rubella virus vaccineKim Burnette MD Work Phone: [place] [address]Hmryevscui05-92-8384sytvdrs toxoid, reduced diphtheria toxoid, and acellular pertussis vaccine, adsorbedKim Burnette MD Work Phone: [facility] CenterGfqyvsjzlu33-94-3590ufqvmvxlw poliovirus vaccine, live, oralKim Burnette MD Work Phone: [facility] CenterEdavvqwytm72-24-3478xoyntcdtik, tetanus toxoids and pertussis vaccineKim Burnette MD Work Phone: [facility] CenterPugqzfedmq85-61-8755ocadcvrwct, tetanus toxoids and pertussis vaccineKim Burnette MD Work Phone: [facility] CenterOdjkkxejjb21-58-1373nrxnwkjhp poliovirus vaccine, live, oralKim Burnette MD Work Phone: [facility] CenterQiqicipwkg73-91-4677omvjkhtgvq, tetanus toxoids and pertussis vaccineKim Burnette MD Work Phone: [facility] CenterRgcoiwunor86-49-0890xolgpomha poliovirus vaccine, live, oralHigypsy Burnette MD Work Phone: NOPut[facility] HospitalXhxnjjhauc48-99-8212qqpjmommrc, tetanus toxoids and pertussis vaccineKim Burnette MD Work Phone: noPutnam County Memorial HospitalBwtfhgxbjm91-45-0835jvduihpgfl, tetanus toxoids and pertussis vaccineKim Burnette MD Work Phone: noPutnam County Memorial HospitalBsfxorgirw89-99-9078mnjunhqop poliovirus vaccine, live, oralHigypsy Burnette MD Work Phone: NOIA HealthcareNEGATED: Highlighted row has not occurred!87-91-5932nqzbjonnh virus vaccine, unspecified formulationJEFILIPPO JOHNSON [facility] Payers DatePayer CategoryPayerPolicy [id number]-fii [id number] Health Insurance [id number] Cross Blue ShieldBCBS [id number] Health InsuranceCIMERIT [facility] [id number] 2011-2015 [id number]21Qyiy-zziWFNN PAY HSP/MEDICAL SELF PAY [id number] 2008-2015 SELF PAY [id number] 1.2.840.161967.1.13.159.2.7.3.048[id number] 2.840.1.918730.3.57[id number] 2.16840.1.902475.3.57[id number] 2.840.1.442636.3.57[id number] 2.840.1.461600.3.57[id number] 2.840.1.222990.3.57[id number] 2.840.1.765086.3.57[id number] 2.840.1.057473.3.57[id number] 2.840.1.346888.3.57[id number] 2.840.1.748711.3.57[id number] 2.840.1.146287.3.579.2.[id number] 2.840.1.436312.3.57[id number] 2.16840.1.156725.3.57[id number] 2.16840.1.627274.3.579.2.779[id number] 2.16.840.[id number] 2.16.840.1.554107.3.579.2.531Unknown [id number] 2.16.840.1.532535.3.579.2.531 Social History DateTypeDetailFacilityAssertionUnknown if ever smoked-[facility] Work Phone: start: 08-01-2013 End: 80-23-1929Lyxjhih smoking status NHISNever smokerFort [facility] Hospitaltart: 08-01-2013 End: 90-13-8790Ifuqwmm intakeCurrent drinker of alcohol (finding)[facility]: 93-77-5530Bpmqrol CommentOccasionalClevelformerly [facility], [facility] ClinicStart: 17-59-5131Fdc Assigned At [facility] CenterNot on fileFort Hamilton Hospitaltart: 11-06-2023 End: 88-34-0893Mno-zopfovBez-oduzuuPyjjnzfhy-Iignznb [address] Work Phone: Start: 42-38-8645Oncccgt smoking statusNeverExec[facility] start: 11-06-2023 End: 41-35-9145Pij Assigned At [facility] [place] Other Start: 68-18-9109Era Assigned At [facility] Centertart: 11-08-2023 End: 92-04-5201Owhtpsnlm beverage intakeEx-drinker (finding)[facility] Start: 33-83-4996Lnlodei CommentoccasionalNOMS HealthcareStart: 06-19-2024 End: 01-56-7191Unkotsv use and exposureSmokeless tobacco non-userN[facility]S Healthcare Start: 91-18-3152Dnmxalpeb beverage intakeLifetime non-drinker (finding)John Garsia [facility] Hospitaledna HealthHow often to you have a drink containing alcohol?NeverClinch Valley Medical Center HealthStart: 11-92-9629KuzYjbaiw (finding)[facility] Doctors Hospitalexual OrientationExec[facility] of St[facility] NEGATED: Highlighted rowStart: NINFHistory of tobacco usePassive [facility] Functional Status JfnnMscjvcpeunXloquxZpkwqmbt47-18-3936Counmierwk StatusN/AExec[facility] of St[facility]09-06-2023Functional StatusN/AExecutive Urology of St. John Of God HospitalNEGATED: Highlighted row Functional performanceFunctional status health issues are not documented [facility] Work Phone: Mental Status DateAssessmentResultFacilityNEGATED: Highlighted rowCognitive function [Interpretation]Cognitive status health issues are not documented DiseaseSt. [facility] Work Phone: Clinical Notes 12-12-2013 to 04-23-2025 Note Date & MxvhRmhtDlpxxmsq94-19-1499 Evaluation note* Diagnosis Onset Date Resolution Status Admit Date Alternating constipation and diarrhea acuteSept2024 9:45amChronic constipationacuteSept2024 9:45amFecal incontinenceacuteSept2024 9:45amFecal urgencyacute April 23, 2025 9:45amGastro-esophageal reflux disease without esophagitis acuteSept2024 9:45am [facility] Work Phone: 1(117) 694-461309-03-2025 Evaluation note* Diagnosis Onset Date Resolution Status Admit Date Alternating constipation and diarrhea acuteSept2024 9:45amChronic constipationacuteSept2024 9:45amFecal incontinenceacuteSept2024 9:45amFecal urgencyacute April 23, 2025 9:45amGastro-esophageal reflux disease without esophagitis acuteSept2024 9:45amGastro-esophageal reflux disease without esophagitisacuteOctober 2024 1:32pm [facility] Work Phone: 1(691) 216-599006-25-2025 Hospital Discharge instructions Patient Education 02/12/2025 10:24:34 Urinary Tract Infection, Adult Urinary Tract Infection, Adult A urinary tract infection (UTI) is an infection of any part of the urinary tract. The urinary tractincludes the kidneys, ureters, bladder, and urethra. These organs make, store, and get rid of urinein the body. An upper UTI affects the ureters and kidneys. A lower UTI affects the bladder and urethra. What are the causes? Most urinary tract infections are caused by bacteria in your genital area around your urethra, where urine leaves your body. These bacteria grow and cause inflammation of your urinary tract. What increases the risk? You are more likely to develop this condition if: You have a urinary catheter that stays in place. You are not able to control when you urinate or have a bowel movement (incontinence). You are female and you: ?Use a spermicide or diaphragm for control. ?Have low estrogen levels. ?Are . You have certain genes that increase your risk. You are sexually active. You take antibiotic medicines. You have a condition that causes your flow of urine to slow down, such as: ?An enlarged prostate, if you are male. ?Blockage in your urethra. ?A kidney stone. ?A nerve condition that affects your bladder control (neurogenic bladder). ?Not getting enough to drink, or not urinating often. You have certain medical conditions, such as: ?Diabetes. ?A weak disease-fighting system (immunesystem). ?Sickle cell disease. ?Gout. ?Spinal cord injury. What are the signs or symptoms? Symptoms of this condition include: Needing to urinate right away (urgency). Frequent urination. This may include small amounts of urine each time you urinate. Pain or burning with urination. Blood in the urine. Urine that smells bad or unusual. Trouble urinating. Cloudy urine. Vaginal discharge, if you are female. Pain in the abdomen or the lower back. You may also have: Vomiting or a decreased appetite. Confusion. Irritability or tiredness. A fever or chills. Diarrhea. The first symptom in older adults may be confusion. In some cases, they may not have any symptoms until the infection has worsened. How is this diagnosed? This condition is diagnosed based on your medical history and a physical exam. You may also have other tests, including: Urine tests. Blood tests. Tests for STIs (sexually transmitted infections). If you have had more than one UTI, a cystoscopy or imaging studies may be done to determine the cause of the infections. How is this treated? Treatment for this condition includes: Antibiotic medicine. Nara-nig-liapwvm medicines to treat discomfort. Drinking enough water to stay hydrated. If you have frequent infections or have other conditions such as a kidney stone, you may need to see a health care provider who specializes in the urinary tract (urologist). In rare cases, urinary tract infections can cause sepsis. Sepsis is a life- threatening condition that occurs when the body responds to an infection. Sepsis is treated in the hospital with IV antibiotics, fluids, and other medicines. Follow these instructions at home: Medicines Take fehw-dfw-xmhsiko and prescription medicines only as told by your health care provider. If you were prescribed an antibiotic medicine, take it as told by your health care provider. Do notstop using the antibiotic even if you start to feel better. General instructions Make sure you: ?Empty your bladder often and completely. Do not hold urine for long periods of time. ?Empty your bladder after sex. ?Wipe from front to back after urinating or having a bowel movement if you are female. Use each tissue only one time when you wipe. Drink enough fluid to keep your urine pale yellow. Keep all follow-up visits. This is important. Contact a health care provider if: Your symptoms do not get better after 1 2 days. Your symptoms go away and then return. Get help right away if: You have severe pain in your back or your lower abdomen. You have a fever or chills. You have nausea or vomiting. Summary A urinary tract infection (UTI) is an infection of any part of the urinary tract, which includes the kidneys, ureters, bladder, and urethra. Most urinary tract infections are caused by bacteria in your genital area. Treatment for this condition often includes antibiotic medicines. If you were prescribed an antibiotic medicine, take it as told by your health care provider. Do notstop using the antibiotic even if you start to feel better. Keep all follow-up visits. This is important. This information is not intended to replace advice given to you by your health care provider. Make sure you discuss any questions you have with your health care provider. Document Revised: 03/14/2021 Document Reviewed: 03/19/2021 [employer] Patient Education 2023 [employer]. Follow Up Care 02/11/2025 11:03:38 With:Jacki Franco PA-C, URL Address: When:Within 6 Month(s) [facility] 06-25-2025 NotePatient Education Obstetrics and Gynecology Urinary Tract Infection, Adult A urinary tract infection (UTI) is an infection of any part of the urinary tract. The urinary tractincludes the kidneys, ureters, bladder, and urethra. These organs make, store, and get rid of urinein the body. An upper UTI affects the ureters and kidneys. A lower UTI affects the bladder and urethra. What are the causes? Most urinary tract infections are caused by bacteria in your genital area around your urethra, where urine leaves your body. These bacteria grow and cause inflammation of your urinary tract. What increases the risk? You are more likely to develop this condition if: ??? You have a urinary catheter that stays in place. ??? You are not able to control when you urinate or have a bowel movement (incontinence). ??? You are female and you: ? Use a spermicide or diaphragm for control. ? Have low estrogen levels. ? Are . ??? You have certain genes that increase your risk. ??? You are sexually active. ??? You take antibiotic medicines. ??? You have a condition that causes your flow of urine to slow down, such as: ? An enlarged prostate, if you are male. ? Blockage in your urethra. ? A kidney stone. ? A nerve condition that affects your bladder control (neurogenic bladder). ? Not getting enough to drink, or not urinating often. ??? You have certain medical conditions, such as: ? Diabetes. ? A weak disease-fighting system (immunesystem). ? Sickle cell disease. ? Gout. ? Spinal cord injury. What are the signs or symptoms? Symptoms of this condition include: ??? Needing to urinate right away (urgency). ??? Frequent urination. This may include small amounts of urine each time you urinate. ??? Pain or burning with urination. ??? Blood in the urine. ??? Urine that smells bad or unusual. ??? Trouble urinating. ??? Cloudy urine. ??? Vaginal discharge, if you are female. ??? Pain in the abdomen or the lower back. You may also have: ??? Vomiting or a decreased appetite. ??? Confusion. ??? Irritability or tiredness. ??? A fever or chills. ??? Diarrhea. The first symptom in older adults may be confusion. In some cases, they may not have any symptoms until the infection has worsened. How is this diagnosed? This condition is diagnosed based on your medical history and a physical exam. You may also have other tests, including: ??? Urine tests. ??? Blood tests. ??? Tests for STIs (sexually transmitted infections). If you have had more than one UTI, a cystoscopy or imaging studies may be done to determine the cause of the infections. How is this treated? Treatment for this condition includes: ??? Antibiotic medicine. ??? Uwib-dsq-pdsacac medicines to treat discomfort. ??? Drinking enough water to stay hydrated. If you have frequent infections or have other conditions such as a kidney stone, you may need to see a health care provider who specializes in the urinary tract (urologist). In rare cases, urinary tract infections can cause sepsis. Sepsis is a life- threatening condition that occurs when the body responds to an infection. Sepsis is treated in the hospital with IV antibiotics, fluids, and other medicines. Follow these instructions at home: Medicines ??? Take gprc-jwv-krwhkqz and prescription medicines only as told by your health care provider. ??? If you were prescribed an antibiotic medicine, take it as told by your health care provider. Donot stop using the antibiotic even if you start to feel better. General instructions ??? Make sure you: ? Empty your bladder often and completely. Do not hold urine for long periods of time. ? Empty your bladder after sex. ? Wipe from front to back after urinating or having a bowel movement if you are female. Use each tissue only one time when you wipe. ??? Drink enough fluid to keep your urine pale yellow. ??? Keep all follow-up visits. This is important. Contact a health care provider if: ??? Your symptoms do not get better after 1?2 days. ??? Your symptoms go away and then return. Get help right away if: ??? You have severe pain in your back or your lower abdomen. ??? You have a fever or chills. ??? You have nausea or vomiting. Summary ??? A urinary tract infection (UTI) is an infection of any part of the urinary tract, which includes the kidneys, ureters, bladder, and urethra. ??? Most urinary tract infections are caused by bacteria in your genital area. ??? Treatment for this condition often includes antibiotic medicines. ??? If you were prescribed an antibiotic medicine, take it as told by your health care provider. Donot stop using the antibiotic even if you start to feel better. ??? Keep all follow-up visits. This is important. This information is not intended to replace advice given to you by your health care provider. Make sure you di (more content not included)...[facility]02-14-2025 Hospital Discharge instructions* Discharge Instructions * Ruiz MD - 10/04/2024 10:26 PM EST Return for worsening symptoms. Follow-up with your doctor. Thank you. * Attachments The following attachments cannot be sent through Care Everywhere. * Closed head injury: Fast facts: Video (Mozambican) documented in this encounterBon [facility] History of Present illness Narrative* Kim Burnette MD - 08/23/2024 9:00 AM EST Images from the original note were not included. Subjective Patient ID: Patty Gaxiola is a 54 y.o. female who [facility] for [facility]us[facility] Seen in the ED for bleeding on POD 2, but no intervention needed. Family History Problem Relation Name Age of [...] HERNIA 06/21/2023 TONSILLECTOMY TURBINATE RESECTION 08/15/2024 Dr Burnette Allergies Allergen Reactions Erythromycin GI intolerance Current Outpatient Medications on File Prior to Visit Medication Sig Dispense Refill albuterol HFA 90 mcg/act inhaler Inhale 1 puff if needed for wheezing Cyanocobalamin (Vitamin B 12) 100 MCG lozenge Take 1 each by mouth Daily estradiol (Vagifem) 10 MCG tablet vaginal tablet Insert 1 tablet (10 mcg) into the vagina 2 (two) times a week Insert 1 tablet into vagina at bedtime for 2 weeks, then at bedtime twice a week. 24 tablet 1 levothyroxine (Synthroid, Levoxyl) 88 MCG tablet Take [...] to visit. Objective Last Recorded Vitals Vitals: 08/23/24 0848 BP: 129/79 ENT Physical Exam Nose Nose comments: Large RT crust. Patient ID: Patty Gaxiola is a 54 y.o. female. Procedures After nasal decongestion, a diagnostic nasal endoscopy was performed bilaterally. The endoscope wasplaced into the nose and a thorough inspection of internal nose including the septum skull base lateral nasal wall structures was performed. There is a large crust adherent to RT IT that cannot yet be removed. Assessment/Plan Diagnoses and all orders for this visit: Hypertrophy of both inferior nasal turbinates Edward healing well. Start BID saline irrigations and recheck in one mo. documented in this [facility]01-02-2025 Telephone encounter Note* Telephone Encounter - Kim Burnette MD - 08/22/2024 9:11 AM EST Send for path report [facility] [id number] Miscellaneous Notes* Telephone Encounter - Kim Burnette MD - 08/22/2024 9:11 AM EST Send for path report documented in this [facility]11-27-2024 History of Present illness Narrative* Kim Burnette MD - 07/17/2024 9:40 AM EST Subjective Patient ID: Patty Gaxiola is a 54 y.o. female who presents for Sinusitis (Follow up RAST, sinus XR TB 06/22/24) Sinus plain films clear. RAST shows a slight allergy to only alternaria. Pt still c/o chronic nasalobstruction. Review of Systems All other systems reviewed [...] nasal obs d/w pt. documented in this encounterHedrick Medical CenterUmavcarniy27-05-2912 History of Present illness Narrative* Kim Burnette MD - 06/19/2024 10:30 AM EDT Subjective Patient ID: Patty Gaxiola is a 54 y.o. female who presents for Dry cough Pt reports a near life-long h/o severe nasal congestion and sinus problems. Causing difficulty withsleep. Tx with claratin and flonase. Using flonase daily. No sinus imaging. No decongestant sprays.No sinonasal surgery. Remote allergy eval Review of [...] at bedtime Check RAST documented in this encounterHedrick Medical CenterUvnrgnyvxo46-15-9014 Hospital Discharge instructions Patient Education 05/09/2024 10:49:25 [...] your diet. If you have problems or questions,contact your health care provider or dietitian. What [...] (122 g) has 5 g of fiber. [place] sprouts (cooked) cup (78 g) has 4 [...] foods with high fiber. Actual amounts of fibermay be different depending on processing. Contact a dietitian for more information. What foods are moderate in fiber? Fruits Banana 1 medium (126 g) has 3.2 g of fiber. Melon 1 cup (155 g) has 1.4 g of fiber. Bath 1 small (154 g) has 3.7 g [...] (77.5 g) has 2.2 g of fiber. [place] (canned or frozen) cup (82.5 g) has [...] (70 g) has 3.2 g of fiber. [place] tortilla one 6-inch (15 cm) tortilla has 1.5 g of fiber. Meats and other proteins Almonds cup or 1 oz (28 g) has 3.5 g of fiber. [place] seeds in shell cup or oz (11.5 [...] (35 g) has 0.5 g of fiber. [place] (slices) cup (60 g) has 0.3 g [...] that are low in fiber. Actual amounts offiber may be different depending on processing. Contact [...] provider. Document Revised: 12/10/2020 Document Reviewed: 12/10/2020 [employer] Patient Education 2023 [employer]. 05/09/2024 10:49:23 High-Fiber Eating Plan High-Fiber Eating [...] the amount of dietary fiber. Choose foods thathave 5 grams of fiber or more per [...] Bulgur wheat. Millet. Quinoa. Bran muffins. Popcorn. [place] wafer crackers. Meats and other proteins [place] beans, kidney beans, and dumont beans. Soybeans. [...] Cream cheese. Sour cream. Fats and oils [place]. Beverages Soft drinks. Other foods Cakes and pastries. The items listed above may not be a complete list of foods and beverages to avoid. Talk with your dietitian about what choices are best for you. Summary Fiber is a type of carbohydrate. It is found in foods such as fruits, vegetables, whole grains, andbeans. A high-fiber diet has many benefits. It can help to prevent constipation, lower blood cholesterol, aid weight loss, and reduce your risk of heart disease, diabetes, and certain cancers. Increase your intake of fiber gradually. Increasing fiber too quickly may cause cramping, bloating,and gas. Drink plenty of water while you [...] provider. Document Revised: 12/10/2020 Document Reviewed: 12/10/2020 [employer] Patient Education 2023 [employer]. 05/08/2024 15:12:44 Overactive Bladder, Adult Overactive Bladder, [...] muscles thatmake your bladder squeeze too soon. This condition [...] your health care provider. General instructions Take thzc-dyr-xlpzpva and prescription medicines only as told by [...] provider. Document Revised: 04/26/2021 Document Reviewed: 04/26/2021 [employer] Patient Education 2023 [employer]. Follow Up Care 04/26/2023 13:57:10 With:ALEX DANIEL, FREYA Hunter, URL Address: When:1 year [facility] Evaluation note* Encounter Date Diagnosis Assessment Notes Treatment Notes Treatment Clinical Notes Jul, Acute recurrent maxillary sinusi tis (ICD-10 - J01.01) Will tx tody for [...] understanding and is agreeable to treatment plan. Jul,ilateral impacted cerumen (ICD-10 - H61.23)Ear lavage in office today. Discussed proper ear [...] understanding and is agreeable to treatment plan. [employer] Other 11-15-2023 Evaluation note* Encounter Date Diagnosis Assessment Notes Treatment Notes Treatment Clinical Notes Jun, Acute vaginitis (ICD-10 - N76.0) [employer] Other 11-10-2023 Evaluation note* Encounter Date Diagnosis Assessment Notes Treatment Notes Treatment Clinical Notes Jun, Acute non-recurrent frontal sinu sitis (ICD-10 - J01.10) Discussed diagnosis with patient. Instructed to take ATB as directed and complete entire course even if asymptomatic. OTC Tylenol or ibuprofen for discomfort. Saline nasal spray prn congestion. Flonase nasal spray prn congestion. OTC cough medication prn cough. Push fluids and rest. Cool mist humidier. Immediate evaluation if worsening symptoms. Patient to notify office should symptoms persist ornot improve. Advised Augmentin may cause diarrhea - advised to use OTC Probiotics, or eat 2 Activiayogurt per day to help maintain normal GI michael. Pt verbalizes understanding and agrees with tx plan. [employer] Other 09-20-2023 Evaluation note* Encounter Date Diagnosis Assessment Notes Treatment Notes Treatment Clinical Notes Apr, Gluten intolerance (ICD-10 - K90 .0) [facility] Other 09-06-2023 Hospital Discharge instructions Patient Education 04/26/2023 13:55:04 Urinary Tract Infection, Adult, Wily-kh-Fhol Urinary Tract Infection, Adult A urinary tract [...] Follow these instructions at home: Medicines Take cpup-xdj-xfamyid and prescription medicines only as told by [...] provider. Document Revised: 03/19/2021 Document Reviewed: 03/19/2021 [employer] Patient Education 2022 [employer]. Follow Up Care 03/30/2022 13:19:45 With:ALEX DANIEL, FREYA Hunter, URL Address: [address] [place] [address] When:Within 1 Year(s) [facility] [place] 08-04-2023 Evaluation note* Encounter Date Diagnosis Assessment Notes Treatment Notes Treatment Clinical Notes Mar, Change in bowel habits (ICD-10 - R19.4) Mar,Fecal incontinence (ICD-10 - R15.9) Mar,loating (ICD-10 - R14.0) Mar,iarrhea, unspecified (ICD-10 - R19.7) [employer] Other 01-20-2023 Evaluation note* Encounter Date Diagnosis Assessment Notes Treatment Notes Treatment Clinical Notes Aug, Left medial knee pain (ICD-10 - M25.562) Discussed options. Handwrote order for pt. Gave exercises for stretching at home. Will call if no improvment for a potential ortho referral. Discussed NSAIDs and heat for improvement [employer] Other 04-20-2022 Hospital Discharge instructions Patient Education [...] fried and sweet foods. General instructions Take vgij-lbc-qidkkkn and prescription medicines only as told by [...] 06/03/2010 Document Revised: 11/28/2019 Document Reviewed: 08/23/2018 [employer] [facility] Patient Education 2020 [employer]. Follow Up Care 11/11/2021 12:54:29 With:ALEX DANIEL, FREYA Hunter, URL Address: [address] [place] [address] When:3 months [facility] [email or web address] 03-14-2022 Evaluation note* Encounter Date Diagnosis Assessment Notes Treatment Notes Treatment Clinical Notes Oct, Irritable bowel synd constance with both constipation and diarrhea (ICD- 10 - K58.2) Oct,Exocrine pancreatic insufficiency (ICD-10 - K86.81) SAMPLES OF ZENPEP GIVEN TO PT PT TO REPORT PROGRESS Oct,Fecal incontinence (ICD-10 - R15.9) Oct,GERD without esophagitis (ICD-10 - K21.9) [employer] Other 02-27-2022 Evaluation note* Encounter Date Diagnosis Assessment Notes Treatment Notes Treatment Clinical Notes Sep, Dysuria (ICD-10 - R30.0) Sep,cute cystitis with hematuria (ICD-10 - N30.01) Discussed [...] understanding and is agreeable to treatment plan Sep,2OtherUrinary tract infection (UTI) home care material was printed [employer] Other 09-29-2020 NoteAccession #: [id number] Date of Procedure: 05/19/2020 Pathologist: STEF GREEN [...] verified by the Molecular Diagnostic Laboratory at [facility]. The lab is certified under the Clinical Laboratory Amendments of 1988 (CLIA 88) as qualified to perform high complexity clinical laboratory testing. This specimen has been analyzed by the Davra NetworksPrep Imaging System (wooju, Cogito.), an automated imaging and review system, which assists the laboratory in evaluating cells on ThinPrep Pap tests. Following automated imaging, selected avnn from every slide were reviewed by a custom feed mill operator and/or pathologist. Electronically Signed Out By [...] Source of Specimen A: THINPREP PAP VAGINAL [facility] Department of Pathology [address] [place], [place] [address]Comment on above:Performed By: #### C #### [facility] Cytology [address] [place], [place] [id number] Miscellaneous Notes* Telephone Encounter - Bridgette Owens [...] cap weekly for 10 weeks. Then, take zuez-yvp-jagllrs Vitamin D3 supplements of at least 1,000 units daily. The following approved medication requests have been transmitted electronically. Signed Prescriptions Disp Refills cholecalciferol, Vitamin D3, 50,000 unit cap capsule 10 capsule 0 Si cap per week x 10 weeks. ELADIO: No Authorizing Provider: LARRY QUINONES DO documented in this encounterFayette County [facility] HospitalEvaluation + Plan note Future Appointments Appointment Date:03/16/2022 08:30:00 AM Scheduled Provider:FREYA JOHNSON PA-C Location:[facility] Appointment Type:URO Office Visit [facility] evaluation + Plan note Future Appointments Appointment Date:04/30/2024 10:00:00 AM Scheduled Provider:FREYA JOHNSON PA-C Location:[facility] Appointment Type:URO Office Visit [facility] evalzntctq noteNo InformationNort [place] Other Evaluation noteNo assessment information available [facility] Work Phone: Evaluation note* Diagnosis Onset Date Resolution Status Sunburn of first degree acuteChronic sinusitisacute [facility] Work Phone: Evaluation note* Diagnosis Chronic sinusitis, unspecified location- Primary Allergic rhinitis, unspecified seasonality, unspecified trigger [facility] Diagnosis Hypertrophy of both inferior nasal turbinates- Primary [facility]* Diagnosis Fall, initial encounter- Primary Injury of head, initial encounter Abnormal CT of spine [facility]* Diagnosis Onset Date Resolution Status Admit Date Fatigue acuteFebruary 2024 8:56amHypothyroidism (acquired)acuteFebruary 2024 8:56am [facility] Work Phone: Evaluation note* Diagnosis Onset Date Resolution Status Admit Date Fecal incontinence acuteSeptember 2024 9:45amFecal urgencyacuteSeptember 2024 9:45am [facility] Work Phone: Hismnqs general Narrative - Reported* Type Description Date Medical History Hypothyroidism Medical HistoryinsomniaMedical Historyacid refluxSurgical Historytonsillectomy Surgical HistoryD&CSurgical HistoryhysterectomySurgical HistoryFoot Surgery rightHospitalization Historysee [facility] [employer] Other Hisaxmn general Narrative - Reported* Type Description Date Medical History Dyspnea Medical HistoryFatigueMedical HistoryAbdominal bloatingMedical HistoryAbdominal pain, RUQMedical HistoryIBS (irritable bowel syndrome)Medical History Hypothyroidism (acquired)Medical HistoryAcid refluxSurgical Historytonsillectomy Surgical HistoryD&CSurgical HistoryhysterectomySurgical HistoryFoot Surgery rightHospitalization HistorySEE SURGICAL [employer] Other Hishhhg general Narrative - Reported* Type Description Date Medical History Dyspnea Medical HistoryFatigueMedical HistoryAbdominal bloatingMedical HistoryAbdominal pain, RUQMedical HistoryIBS (irritable bowel syndrome)Medical History Hypothyroidism (acquired)Medical HistoryAcid refluxMedical Historyumbilical herniaMedical HistoryGERD without esophagitisSurgical Historytonsillectomy Surgical HistoryD&CSurgical HistoryhysterectomySurgical HistoryFoot Surgery rightHospitalization HistorySEE SURGICAL [facility] Other Hisuejb general Narrative - Reported* Type Description Date Medical History Dyspnea Medical HistoryFatigueMedical HistoryAbdominal bloatingMedical HistoryAbdominal pain, RUQMedical HistoryIBS (irritable bowel syndrome)Medical History Hypothyroidism (acquired)Medical HistoryAcid refluxMedical Historyumbilical herniaMedical HistoryGERD without esophagitisSurgical Historytonsillectomy Surgical HistoryD&CSurgical HistoryhysterectomySurgical HistoryFoot Surgery rightSurgical HistoryUmbilical/Hiatial Hernia Abuhkh45/27/23Hospitalization HistorySEE SURGICAL HX [facility] [employer] Other Hospital course Narrative No data available for this section [facility] Hospital Discharge instructionsAmbulatory Orders* Referral to ENT Time Frame: 05/23/24, Location: None Selected [facility] Work Phone: Progress note No data available for this section [facility] reason for referral (narrative)No reason for referral information availableSouth[facility] Work Phone: Reason for visit Narrativeknee troubles, possible referralNoDepartment of [facility] [employer] Other Summary Purpose Family History uncle Name [...] Family history of myocardial infarction: Grandparent(V17.3, Z82.49) Status:ActiveNo pertinent family history: Mother, Father(V49.89, Z78.9) Status:ActiveFamily history of malignant neoplasm of colon: Sister, Maternal Uncle(V16.0, Z80.0) Status:Active Unknown Family Member Name Dates Details Family history of myocardial infarction: Grandparent(V17.3, Z82.49) Status:ActiveNo pertinent family history: Mother, Father(V49.89, Z78.9) Status:ActiveFamily history of malignant neoplasm of colon: Sister, Maternal Uncle(V16.0, Z80.0) Status:Active Relationship Condition Age at Onset Recorded Date/T nataliia grandparent Heart problem Unknown Advance Directives Advance Directive Response Recorded Date/ Time Advance Directives No September 03, 2020 10:43am Advance Directive Response Recorded Date/ Time Advance Directives No September 03, 2020 9:43am Chief Complaint and Reason for Visit Chief Complaint possible tabares on fe et Chief Complaint possible tabares on fe et dry coughReason for VisitSunburn of first degree Chronic sinusitis Chief Complaint Admit Date Unknown August 15, 2024 11:44am Amb Documentation October 08, 2024 9:00am Amb Documentation October 10, 2024 8:30am [facility] October 18, 2024 8:56am Reason for Visit Admit Date Fatigue October 18, 2024 8:56am Hypothyroidism (acquired) October 18, 2024 8:56am Chief Complaint Admit Date Fecal incontinence April 23, 2025 9:45am Reason for Visit Admit Date Fecal incontinence April 23, 2025 9:45am Fecal urgency April 23, 2025 9:45am Chief Complaint Admit Date Fecal incontinence April 23, 2025 9:45am k59.09 r19.7 r15.2 April 23, 2025 10:57am Reason for Visit Admit Date Alternating constipation and diarrhea Se pt2024 9:45am Chronic constipation April 23, 2025 9:45am Fecal incontinence April 23, 2025 9:45am Fecal urgency April 23, 2025 9:45am Gastro-esophageal reflux disease without esophagitis April 23, 2025 9:45am Chief Complaint Admit Date Fecal incontinence April 23, 2025 9:45am k59.09 r19.7 r15.2 April 23, 2025 10:57am 1 m GERD/Dyspepsia June 18, 2025 1 :32pm Reason for Visit Admit Date Alternating constipation and diarrhea Se pt2024 9:45am Chronic constipation April 23, 2025 9:45am Fecal incontinence April 23, 2025 9:45am Fecal urgency April 23, 2025 9:45am Gastro-esophageal reflux disease without esophagitis April 23, 2025 9:45am Gastro-esophageal reflux disease without esophagitis June 18, 2025 1:32pm Additional Source Comments INFORMATION SOURCE (unrecogn ized section and content) DATE CREATED AUTHOR 02/14/2018 [facility] DATE CREATED AUTHOR AUTHOR'S ORGANIZ ATION 01/10/2019 [facility] DATE CREATED AUTHOR AUTHOR'S ORGANIZ ATION 01/17/2019 [facility] DATE CREATED AUTHOR AUTHOR'S ORGANIZ ATION 12/16/2020 [facility] DATE CREATED AUTHOR AUTHOR'S ORGANIZ ATION 12/16/2020 [facility] DATE CREATED AUTHOR AUTHOR'S ORGANIZ ATION 01/12/2021 [facility] DATE CREATED AUTHOR AUTHOR'S ORGANIZ ATION 01/27/2023 [facility] DATE CREATED AUTHOR AUTHOR'S ORGANIZ ATION 12/26/2023 [facility] DATE CREATED AUTHOR AUTHOR'S ORGANIZ ATION 08/30/2024 [facility] DATE CREATED AUTHOR AUTHOR'S ORGANIZ ATION 10/06/2024 [facility] DATE CREATED AUTHOR AUTHOR'S ORGANIZ ATION 04/25/2025 [facility] DATE CREATED AUTHOR AUTHOR'S ORGANIZ ATION 05/25/2025 [facility] Source Comments (unrecognize d section and content) In the event this informatio n is protected by the Federal Confidentiality of Alcohol and Drug Abuse Patient Records regulations: The Federal rules restrict any use of the information to criminally investigate or prosecute any alcohol or drug abuse patient.[facility] Reason for Visit (unrecogniz ed section and content) ReasonOnset BwfaBdxuhikpThjxhth51/22/2014ReasonCommentsDry coughReasonComments SinusitisFollow up RAST, sinus XR [facility] 06/22/24ReasonCommentsSinusitisS/p ITSRM TB 08/15/24ReasonCommentsFallHead, neck, back and left shoulder pain after falling on ice today, -thinners Patient Care team informatio n (unrecognized section and content) Team Status: Active Member Role Status Dates Xiomara Aaron MD Primary Care Provider Active Team Status: Inactive Member Role Status Dates Xiomara Aaron MD Primary Care Provider Active Start: April 23, 2025 End: April 23, 2025Robert Packer ProviderActiveStart: April 23, 2025 End: April 23, 2025 Team Status: Active Member Role Status Dates Xiomara Aaron MD Primary Care Provider Active Start: August 05, 2024 Kim Burnette Jr, MDAttending ProviderActiveStart: August 05, 2024 Team Status: Active Member Role Status Dates Cyrus Munoz DO Attending Provider Active Sta rt: August 05, 2024 Team Status: Inactive Member Role Status Dates Kim Burnette Jr, MD Attending Provider Active Start: August 15, 2024 End: August 15, 2024 Team Status: Active Member Role Status Dates Gerda Biswas CMA Attending Provider Active Start: October 08, 2024 Team Status: Active Member Role Status Dates Gerda Biswas CMA Attending Provider Active Start: October 10, 2024 Team Status: Inactive Member Role Status Dates Xiomara Aaron MD Primary Care Provide r, Attending Provider Active Start: October 18, 2024 End: October 18, 2024 Team Status: Inactive Member Role Status Dates Xiomara Aaron MD Primary Care Provide r, Attending Provider Active Start: April 10, 2024 End: April 10, 2024 Team Status: Inactive Member Role Status Dates Xiomara Aaron MD Primary Care Provide r, Attending Provider Active Start: May 23, 2024 End: May 23, 2024Team MemberRelationshipSpecialtyStart DateEnd Date Xiomara Aaron MD [address] [place] [address] PCP - GeneralFamily Medicine11/08/23Team MemberRelationshipSpecialtyStart DateEnd Date Xiomara Aaron MD [address] [place] [address] PCP - GeneralFamily Medicine11/08/23Team MemberRelationshipSpecialtyStart DateEnd Date Xiomara Aaron MD [address] [place] [address] PCP - GeneralFamily Medicine11/08/23Team MemberRelationshipSpecialtyStart DateEnd Date Xiomara Aaron MD [address] [place] [address] PCP - GeneralFamily Medicine11/08/23Team MemberRelationshipSpecialtyStart DateEnd Date Xiomara Aaron MD [address] [place] [address] PCP - GeneralFamily Medicine11/08/23Team MemberRelationshipSpecialtyStart DateEnd Date Xiomara Aaron MD [address] [place] [address] PCP - GeneralFamily Medicine11/08/23Team MemberRelationshipSpecialtyStart DateEnd Date Xiomara Aaron MD [address] [place] [address] PCP - GeneralFamily Medicine11/08/23Team MemberRelationshipSpecialtyStart DateEnd Date Xiomara Aaron MD PCP - GeneralFamily Medicine11/08/23Team MemberRelationshipSpecialtyStart DateEnd Date Xiomara Aaron MD PCP - [facility] Medicine11/08/23Team MemberRelationshipSpecialtyStart DateEnd Xiomara Aaron MD [facility] - [facility] Team Status: Active Member Role/Relationship Status Dates Xiomara Aaron MD Primary Care Provider Active Team Status: Inactive Member Role/Relationship Status Dates Xiomara Aaron MD Primary Care Provider Active Start: April 23, 2025 End: April 23, 2025Robert Packer ProviderActiveStart: April 23, 2025 End: April 23, 2025 Team Status: Inactive Member Role/Relationship Status Dates Xiomara Aaron MD Primary Care Provider Active Start: April 23, 2025 End: April 23, 2025Robert Packer ProviderActiveStart: April 23, 2025 End: April 23, 2025 Team Status: Inactive Member Role/Relationship Status Dates Xiomara Aaron MD Primary Care Provider Active Start: June 18, 2025 End: June 18, 2025Robert Packer ProviderActiveStart: June 18, 2025 End: June 18, 2025 Goals (unrecognized section and content) Goals may be documented in a n alternate section Ordered Prescriptions (unrec ognized section and content) PrescriptionSigDispensedRefillsStart DateEnd lidocaine (LIDODERM) 5 % Place 1 patch onto the skin daily 12 hours on, 12 hours off. 30 patch 10/04/2024 tiZANidine (ZANAFLEX) 4 MG tablet Take 1 tablet by mouth every 8 hours as needed (spasm) 20 tablet 10/04/2024 ketorolac (TORADOL) 10 MG tablet Take 1 tablet by mouth every 6 hours as needed for Pain 20 tablet 10/04/2024 Scheduled Active and Recently Administ ered Medications (unrecognized section and content) Medication Order// ketorolac (TORADOL) injection 30 mg (COMPLETED) 30 mg, IntraMUSCular, ONCE, 1 dose, On Mon10/04/24 at 2220, Do not administer for more than 5 days. * 2245 (Given - Provider: Primitivo Crandall RN) lidocaine 4 % external patch 2 patch 2 patch, TransDERmal, Administer over 12 Hours, DAILY, First dose on Mon10/05/24 at 0900, Apply patch to neck/back. The machinist apprentice wood's recommendations for the number of patches that can be applied within a 24-hour period varies from 1 to 4 times daily and the duration of application varies from 8 to 24 hours; refer to the machinist apprentice wood's labeling for product-specific recommendations. FOR RECORDS PERTAINING TO PATIENTS WHO ARE [...] BE BASED ON THE PRIMARY CLINICAL RECORDS. [employer] provides no warranty or guarantee of the accuracy or completeness of information in this document.
[2025-07-23 14:08] LABS: Age Gdln ACOG Testing Note (.); IGP, Aptima HPV, rfx 16/18,45 Note (.)
== END 2025-07-21 14:51 | disposition home or self-care (01) ==
LOC: LAB 14:50
PROVIDERS: PCP Family Medicine; Visit Provider Physician Assistant
DX: Z01.419 Encounter for gynecological examination (general) (routine) without abnormal findings (principal); Z90.710 Acquired absence of both cervix and uterus
CPT/HCPCS: 88175